=== PATIENT | female | born 1940 | race Caucasian/White ===

== ENCOUNTER 2023-04-16 13:42 | Outpatient (OUT) | payer MEDICARE, OTHER, SELFPAY ==
[2023-04-16 14:05] LABS: Basophils Absolute Auto 0.1 10^3/uL (0.0-0.1); Basophils Percent Auto 1.4 % (0.2-2.0); Eosinophils Absolute Auto 0.1 10^3/uL (0.0-0.7); Eosinophils Percent Auto 1.2 % (0.9-7.0); Hematocrit 38.7 % (36.0-48.0); Hemoglobin 12.3 g/dL (12.0-16.0); Immature Granulocytes Abs Auto 0.01 10^3/uL (0.00-0.03); Immature Granulocytes Pct Auto 0.2 % (0.0-0.5); Lymphocytes Absolute Auto 1.6 10^3/uL (1.2-3.8); Lymphocytes Percent Auto 26.7 % (20.5-60.0); Mean Corpuscular HGB Conc 31.8 g/dL (29.9-35.2); Mean Corpuscular Hemoglobin 30.4 pg (26.7-34.0); Mean Corpuscular Volume 95.6 fL (81.0-99.0); Mean Platelet Volume 9.8 fL (9.5-13.5); Monocytes Absolute Auto 0.6 10^3/uL (0.3-0.8); Monocytes Percent Auto 10.5 % (1.7-12.0); Neutrophils Absolute Auto 3.5 10^3/uL (1.4-6.5); Platelet Count 276 10^3/uL (150-450); Red Blood Count 4.05 10^6/uL (4.20-5.40); Red Cell Distribution Width 14.2 % (11.0-15.0); White Blood Count 5.8 10^3/uL (4.0-11.0)
== END 2023-04-16 13:43 | disposition home or self-care (01) ==
LOC: LAB 13:48
PROVIDERS: PCP Family Medicine; Visit Provider Internal Medicine Cardiovascular Disease
DX: I48.19 Other persistent atrial fibrillation (principal)
CPT/HCPCS: 36415; 85025

== ENCOUNTER 2023-04-21 07:54 | Outpatient (OUT) | payer MEDICARE, OTHER, SELFPAY ==
[2023-04-21 10:45] LABS: Anion Gap 10.6; BUN Creatinine Ratio 22.9; Calcium 8.9 mg/dL (8.5-10.1); Chloride 106 mmol/L (98-107); Estimated GFR (African America >60 (>=60); Estimated GFR (Non-African Ame >60 (>=60); Glucose 105 mg/dL (74-106); Potassium 3.6 mmol/L (3.5-5.1); Sodium 144 mmol/L (136-145)
== END 2023-04-21 07:55 | disposition home or self-care (01) ==
LOC: LAB 07:55
PROVIDERS: PCP Family Medicine; Visit Provider Internal Medicine Cardiovascular Disease
DX: I48.19 Other persistent atrial fibrillation (principal)
CPT/HCPCS: 36415; 80048

== ENCOUNTER 2023-08-01 09:54 | Outpatient (OUT) | payer MEDICARE, OTHER, SELFPAY ==
[2023-08-01 10:46] LABS: Anion Gap 13.1; BUN Creatinine Ratio 17.2; Calcium 8.7 mg/dL (8.5-10.1); Carbon Dioxide 28.6 mmol/L (21.0-32.0); Chloride 105 mmol/L (98-107); Estimated GFR (African America >60 (>=60); Estimated GFR (Non-African Ame 54 (>=60); Glucose 99 mg/dL (74-106); Potassium 3.7 mmol/L (3.5-5.1); Sodium 143 mmol/L (136-145)
== END 2023-08-01 09:55 | disposition home or self-care (01) ==
LOC: LAB 09:55
PROVIDERS: PCP Family Medicine; Visit Provider Nurse Practitioner
DX: I11.0 Hypertensive heart disease with heart failure (principal)
CPT/HCPCS: 36415; 80048

== ENCOUNTER 2023-08-28 08:18 | Outpatient (OUT) | payer MEDICARE, OTHER, SELFPAY ==
[2023-08-28 09:48] LABS: Alanine Aminotransferase 20 U/L (14-59); Albumin Globulin Ratio 1.2; Albumin Level 3.7 g/dL (3.4-5.0); Alkaline Phosphatase 54 U/L (46-116); Anion Gap 12.9; Aspartate Amino Transferase 12 U/L (15-37); BUN Creatinine Ratio 28.1; Bilirubin Total 0.4 mg/dL (0.2-1.0); Calcium 8.6 mg/dL (8.5-10.1); Carbon Dioxide 29.9 mmol/L (21.0-32.0); Chloride 104 mmol/L (98-107); Estimated GFR (African America >60 (>=60); Estimated GFR (Non-African Ame >60 (>=60); Free T3 1.92 pg/mL (2.18-3.98); Globulin 3.1 g/dL; Glucose 99 mg/dL (74-106); Potassium 3.8 mmol/L (3.5-5.1); Sodium 143 mmol/L (136-145); Thyroid Stimulating Hormone 0.682 uIU/mL (0.358-3.740); Total Protein 6.8 g/dL (6.4-8.2)
[2023-08-28 09:56] LABS: Estimated Average Glucose 111 mg/dL; Glycohemoglobin A1C 5.5 % (4.5-6.2)
== END 2023-08-28 08:19 | disposition home or self-care (01) ==
LOC: LAB 08:19
PROVIDERS: PCP Family Medicine; Visit Provider Family Medicine
DX: R00.2 Palpitations (principal); R55 Syncope and collapse; I10 Essential (primary) hypertension; E03.9 Hypothyroidism, unspecified; E05.90 Thyrotoxicosis, unspecified without thyrotoxic crisis or storm; D50.9 Iron deficiency anemia, unspecified
CPT/HCPCS: 36415; 80053; 83036; 84436; 84443; 84481

== ENCOUNTER 2023-10-07 10:28 | Outpatient (OUT) | payer MEDICARE, OTHER, SELFPAY ==
[2023-10-07 11:07] LABS: Free T3 2.46 pg/mL (2.18-3.98); Thyroid Stimulating Hormone 0.086 uIU/mL (0.358-3.740)
== END 2023-10-07 10:29 | disposition home or self-care (01) ==
LOC: LAB 10:29
PROVIDERS: PCP Family Medicine; Visit Provider Family Medicine
DX: E05.90 Thyrotoxicosis, unspecified without thyrotoxic crisis or storm (principal)
CPT/HCPCS: 36415; 84436; 84443; 84481

== ENCOUNTER 2024-01-13 15:36 | Emergency (ER) | payer MEDICARE, OTHER, SELFPAY ==
[2024-01-13] VITALS (14 sets, daily range): BP systolic 144–190; BP diastolic 74–91; PULSE 74–90; TEMP 36.8; O2SAT 91–95; BMI 33.3
--- NOTE | 2024-01-13 15:42 | ECG_ITS ---
The 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
--- NOTE | 2024-01-13 15:49 | XR_ITS ---
The [address] [address] Patient Name: PAULINE CAMARENA MRN: [id number] date: 1940 Sex: F Assigned Patient Location: ER Current Patient Location: ED.MAIN Accession/Order Number: [id number] Exam Date: 01/13/2024 16:00 Report Date: 01/13/2024 16:15 At the request of: ANNE EVANGELISTA Procedure: XR chest 1V EXAMINATION: XR chest 1V HISTORY: Palpitations COMPARISON: XR chest 01/09/2023 FINDINGS: LUNGS: Underexpanded lungs with trace amount of stranding within lung bases. VASCULATURE: No increased pulmonary vasculature. PLEURA: No pneumothorax, effusion, or pleural thickening. CARDIAC: No cardiomegaly or cardiac silhouette abnormality. MEDIASTINUM: No visible mass or adenopathy. BONES: No fracture or visible bone lesion. OTHER: Negative. XR/XR chest 1V IMPRESSION: 1. Low lung volume examination with trace amount of bibasilar atelectasis or less likely infiltrates; grossly stable. Electronically authenticated by: ALLY GOODE Date: 01/13/2024 16:15
--- NOTE | 2024-01-13 15:57 | ED.ARRPALP1 ---
HPI - Arrhythmia/Palpitations General Chief Complaint: Arrhythmia/Palpitations Stated Complaint: Palpitations Time Seen by Provider: 01/13/24 15:40 Source: patient Mode of arrival: walk-in Limitations: no limitations History of Present Illness HPI narrative: Patient is an 83-year-old female with a history of A-fib and Ablation 1 year ago who presents to the ER for intermittent palpitations for the last several days. She states the palpitations are not new for her, but in the last several days they seem much more frequent and she is feeling lightheaded when it happens. She states the palpitations last for several seconds. She has not had any chest pain or shortness of breath. She describes the sensation of her heart skipping. She has had some mild flulike illness in the last several weeks. She has not had any fevers, vomiting, diarrhea. She denies any peripheral edema. She sees Dr. Knapp for cardiology and had the ablation 1 year ago at [facility]. She states she had a stress test prior to the ablation, she does not have any coronary artery disease. She was taken off of her amiodarone several months ago because she was doing well. She does take metoprolol, she states this medication was increased recently to 100 mg. Related Data Home Medications ?Medication ?Instructions ?Recorded ?Confirmed apixaban 5 mg tablet (Eliquis) 5 mg PO Q12H 01/13/24 01/13/24 atorvastatin 10 mg tablet 10 mg PO DAILY 01/13/24 01/13/24 ergocalciferol (vitamin D2) 1,000 1,000 mcg PO DAILY 01/13/24 01/13/24 unit capsule isosorbide mononitrate 60 mg 60 mg PO BID 01/13/24 01/13/24 tablet,extended release 24 hr levothyroxine 88 mcg tablet 88 mcg PO DAILY 01/13/24 01/13/24 liothyronine 25 mcg tablet 25 mcg PO DAILY 01/13/24 01/13/24 losartan 50 mg tablet 25 mg PO DAILY 01/13/24 01/13/24 metoprolol succinate 100 mg 100 mg PO DAILY 01/13/24 01/13/24 tablet,extended release 24 hr spironolactone 25 mg tablet 12.5 mg PO DAILY 01/13/24 01/13/24 Allergies Allergy/AdvReac Type Severity Reaction Status Date / Time diltiazem [From Cardizem] Allergy Hives Verified 01/13/24 16:12 digoxin AdvReac Severe Nausea Verified 01/13/24 16:12 Review of Systems ROS Constitutional Denies: fever or chills Ears, nose, mouth, and throat Denies: throat pain or nasal congestion Cardiovascular Reports: palpitations and lightheadedness; Denies: chest pain or edema Respiratory Denies: shortness of breath or cough Gastrointestinal Denies: abdominal pain, nausea or vomiting Musculoskeletal Denies: back pain or neck pain Integumentary/Breast Denies: rash Hematologic/Lymphatic Denies: easy bruising or easy bleeding Exam Narrative Exam Narrative: Gen.: Awake, alert, in no distress Head: Normocephalic, atraumatic ENT: Moist mucous membranes Respiratory: No respiratory distress, lungs clear bilaterally Cardio: Regular rate and rhythm Gastrointestinal: Abdomen is soft, nondistended and nontender to palpation Extremities: Moves extremities equally, no pedal edema Psych: Normal mood and affect Neuro: No focal neuro deficit Skin: Warm, dry, intact Constitutional Vital Signs, click to edit/add: Last Vital Signs Temp 98.3 F 01/13/24 15:42 Pulse 84 01/13/24 16:40 Resp 18 01/13/24 15:42 BP 184/74 H 01/13/24 16:30 Pulse Ox 93 L 01/13/24 16:40 O2 Del Method Room Air 01/13/24 15:42 Course Vital Signs Vital signs: Vital Signs Temperature 98.3 F 01/13/24 15:42 Pulse Rate 82 01/13/24 15:42 Respiratory Rate 18 01/13/24 15:42 Blood Pressure 190/91 H 01/13/24 15:42 Pulse Oximetry 94 L 01/13/24 15:42 Oxygen Delivery Method Room Air 01/13/24 15:42 Temperature 98.3 F 01/13/24 15:42 Pulse Rate 84 01/13/24 16:40 Respiratory Rate 18 01/13/24 15:42 Blood Pressure 184/74 H 01/13/24 16:30 Pulse Oximetry 93 L 01/13/24 16:40 Oxygen Delivery Method Room Air 01/13/24 15:42 MDM - Arrhythmia/Palpitations MDM Narrative Medical decision making narrative: Patient in normal sinus rhythm, rate controlled with no acute ST elevation and normal labs in the ER. Chest x-ray with stable atelectasis. Patient's TSH is low, she will need to follow-up with Dr. Bates for adjustment of her medications. I discussed this with Dr. Bates over the phone, we will attempt Holter monitor placement and follow-up closely in the office. Cardiopulmonary staff is not available to place a Holter monitor today, they will be here tomorrow morning. Patient was given an order for 48-hour Holter monitor, follow-up closely with Dr. Bates's office and return to the ER if symptoms change or worsen. Medical Records Attestation: I reviewed the patient's medical records. Lab Data Attestation: I reviewed the patient's lab results. Labs: Lab Results 01/13/24 Range/Units 15:50 WBC 6.9 (4.0-11.0) 10^3/uL RBC 4.28 (4.20-5.40) 10^6/uL Hgb 12.9 (12.0-16.0) g/dL Hct 39.8 (36.0-48.0) % MCV 93.0 (81.0-99.0) fL MCH 30.1 (26.7-34.0) pg MCHC 32.4 (29.9-35.2) g/dL RDW 13.6 (11.0-15.0) % Plt Count 265 (150-450) 10^3/uL MPV 10.6 (9.5-13.5) fL Neut % (Auto) 61.6 (43.0-75.0) % Lymph % (Auto) 27.0 (20.5-60.0) % [place] % (Auto) 8.7 (1.7-12.0) % Eos % (Auto) 1.2 (0.9-7.0) % Baso % (Auto) 1.2 (0.2-2.0) % Neut # (Auto) 4.2 (1.4-6.5) 10^3/uL Lymph # (Auto) 1.9 (1.2-3.8) 10^3/uL [place] # (Auto) 0.6 (0.3-0.8) 10^3/uL Eos # (Auto) 0.1 (0.0-0.7) 10^3/uL Baso # (Auto) 0.1 (0.0-0.1) 10^3/uL Abs Immat Gran (auto) 0.02 (0.00-0.03) 10^3/uL Imm/Tot Granulo (auto) 0.3 (0.0-0.5) % PT 10.3 (9.0-11.6) sec INR 0.97 Sodium 143 (136-145) mmol/L Potassium 3.5 (3.5-5.1) mmol/L Chloride 104 (98-107) mmol/L Carbon Dioxide 26.8 (21.0-32.0) mmol/L Anion Gap 15.7 BUN 14.0 (7.0-18.0) mg/dL Creatinine 0.79 (0.55-1.02) mg/dL Est GFR ( Amer) >60 (>=60) Est GFR (Non-Af Amer) >60 (>=60) BUN/Creatinine Ratio 17.7 Glucose 108 H (74-106) mg/dL Calcium 8.8 (8.5-10.1) mg/dL Total Bilirubin 0.4 (0.2-1.0) mg/dL AST 34 (15-37) U/L ALT 22 (14-59) U/L Alkaline Phosphatase 70 (46-116) U/L Troponin I High Sens 4.8 (4.0-51.3) pg/mL NT-Pro-B Natriuret Pep 173.0 (<=1800.0) pg/mL Total Protein 7.2 (6.4-8.2) g/dL Albumin 3.9 (3.4-5.0) g/dL Globulin 3.3 g/dL Albumin/Globulin Ratio 1.2 TSH 0.018 L (0.358-3.740) uIU/mL Imaging Data Chest x-ray: Attestation: I have reviewed the pertinent imaging results. Radiologist's impression: ITS Impressions Chest X-Ray 01/13/24 15:49 IMPRESSION: 1. Low lung volume examination with trace amount of bibasilar atelectasis or less likely infiltrates; grossly stable. Electronically authenticated by: ALLY GOODE Date: 01/13/2024 16:15 ECG Data Attestation: I personally reviewed and interpreted this ECG as follows: ([place] rhythm at a rate of 78, no acute ST elevation or ectopy noted. EKG reviewed by attending physician) Discharge Plan Discharge Stand Alone Forms: Portal Instructions Chief Complaint: Arrhythmia/Palpitations Clinical Impression: Palpitations Patient Disposition: Home, Self-Care Time of Disposition Decision: 17:11 Condition: Good Prescriptions / Home Meds: No Action metoprolol succinate 100 mg tablet extended release 24 hr 100 mg PO DAILY isosorbide mononitrate 60 mg tablet extended release 24 hr 60 mg PO BID Eliquis 5 mg tablet 5 mg PO Q12H atorvastatin 10 mg tablet 10 mg PO DAILY levothyroxine 88 mcg tablet 88 mcg PO DAILY liothyronine 25 mcg tablet 25 mcg PO DAILY spironolactone 25 mg tablet 12.5 mg PO DAILY losartan 50 mg tablet 25 mg PO DAILY ergocalciferol (vitamin D2) 1,000 unit capsule 1,000 mcg PO DAILY Print Language: Turkmen Instructions: Heart Palpitations (ED) Additional Instructions: Call centralized scheduling in the morning tomorrow ([phone]. [phone]) To have a Holter monitor placed. The staff will be able to do this tomorrow morning. Follow-up with Dr. Bates to review your thyroid studies and results in the next 1 to 2 days. Referrals: Norris Bates MD [Primary Care Provider] - As soon as possible
[2024-01-13 16:18] LABS: Basophils Absolute Auto 0.1 10^3/uL (0.0-0.1); Basophils Percent Auto 1.2 % (0.2-2.0); Eosinophils Absolute Auto 0.1 10^3/uL (0.0-0.7); Eosinophils Percent Auto 1.2 % (0.9-7.0); Hematocrit 39.8 % (36.0-48.0); Hemoglobin 12.9 g/dL (12.0-16.0); Immature Granulocytes Abs Auto 0.02 10^3/uL (0.00-0.03); Immature Granulocytes Pct Auto 0.3 % (0.0-0.5); Lymphocytes Absolute Auto 1.9 10^3/uL (1.2-3.8); Mean Corpuscular HGB Conc 32.4 g/dL (29.9-35.2); Mean Corpuscular Hemoglobin 30.1 pg (26.7-34.0); Mean Platelet Volume 10.6 fL (9.5-13.5); Monocytes Absolute Auto 0.6 10^3/uL (0.3-0.8); Monocytes Percent Auto 8.7 % (1.7-12.0); Neutrophils Absolute Auto 4.2 10^3/uL (1.4-6.5); Neutrophils Percent Auto 61.6 % (43.0-75.0); Platelet Count 265 10^3/uL (150-450); Red Blood Count 4.28 10^6/uL (4.20-5.40); Red Cell Distribution Width 13.6 % (11.0-15.0); White Blood Count 6.9 10^3/uL (4.0-11.0)
[2024-01-13 16:31] LABS: INR 0.97; Prothrombin Time 10.3 sec (9.0-11.6)
[2024-01-13 16:33] LABS: Alanine Aminotransferase 22 U/L (14-59); Albumin Globulin Ratio 1.2; Albumin Level 3.9 g/dL (3.4-5.0); Alkaline Phosphatase 70 U/L (46-116); Anion Gap 15.7; Aspartate Amino Transferase 34 U/L (15-37); BUN Creatinine Ratio 17.7; Bilirubin Total 0.4 mg/dL (0.2-1.0); Calcium 8.8 mg/dL (8.5-10.1); Carbon Dioxide 26.8 mmol/L (21.0-32.0); Chloride 104 mmol/L (98-107); Estimated GFR (African America >60 (>=60); Estimated GFR (Non-African Ame >60 (>=60); Globulin 3.3 g/dL; Glucose 108 mg/dL (74-106); Potassium 3.5 mmol/L (3.5-5.1); Sodium 143 mmol/L (136-145); Total Protein 7.2 g/dL (6.4-8.2)
[2024-01-13 16:42] LABS: Thyroid Stimulating Hormone 0.018 uIU/mL (0.358-3.740); Troponin I High Sensitivity 4.8 pg/mL (4.0-51.3)
== END 2024-01-13 17:30 | disposition home or self-care (01) ==
PROVIDERS: Physician Assistant; Emergency Provider Emergency Medicine; PCP Family Medicine
DX: R00.2 Palpitations (principal); Z79.01 Long term (current) use of anticoagulants; Z79.899 Other long term (current) drug therapy; Z79.890 Hormone replacement therapy
CPT/HCPCS: 36415; 71045; 80053; 83880; 84443; 84484; 85025; 85610; 93005; 99285

== ENCOUNTER 2024-01-15 09:57 | Outpatient (OUT) | payer MEDICARE, OTHER, SELFPAY ==
--- NOTE | 2024-01-15 10:13 | CA_ITS ---
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1940 Requested By: [id number] Order Number: [id number] Reading MD: ANDRE EPPS Interpretive Statements Predominant rhythm is sinus with average rate of 72 bpm Tachycardia - max rate of 181 bpm (PSVT) - 2 episodes of PSVT w/ longest duration of 6 beats - longest episode of 12min 2sec with rates between 123-153 bpm Bradycardia - min rate of 50 bpm - longest episode of 43min 3sec w/ rates between 55-59 bpm Ventricular ectopy - 297 total, < 1% - 295 PVC - 2 couplets Patient triggered events: 22 - associated with symptoms of palpitations - associated w/ normal sinus rhythm w/ VE and SVE Impression: Predominant rhythm is sinus with average rate of 72 bpm Fastest rate of 181 bpm (PSVT) and slowest rate of 50 bpm 295 PVC, 2 couplets No atrial fibrillation No pauses or blocks Electronically Signed On 01-27-2024 7:16:12 EDT by ANDRE EPPS
== END 2024-01-15 09:58 | disposition home or self-care (01) ==
LOC: CARD 09:57
PROVIDERS: PCP Family Medicine; Visit Provider Emergency Medicine Emergency Medical Services
DX: R00.2 Palpitations (principal); I49.9 Cardiac arrhythmia, unspecified
CPT/HCPCS: 93242

== ENCOUNTER 2024-03-17 08:13 | Outpatient (OUT) | payer MEDICARE, OTHER, SELFPAY ==
--- NOTE | 2024-03-17 08:22 | CT_ITS ---
The [address] [address] Patient Name: PAULINE CAMARENA MRN: [id number] date: 1940 Sex: F Assigned Patient Location: LAB Current Patient Location: LAB Accession/Order Number: [id number] Exam Date: 03/17/2024 09:00 Report Date: 03/17/2024 10:03 At the request of: CAM CHEN Procedure: CT head/brain wo/w con CT head/brain wo/w con, 03/17/2024 9:00 AM EDT INDICATION: Migraine G43.9009 COMPARISON: Prior CT of the head dated 05/16/2022 TECHNIQUE: Axial CT images of the brain from skull base to vertex, including portions of the face and sinuses, were obtained without and with contrast . Multiplanar reformatted images were generated and reviewed as needed. Dose reduction techniques were achieved by using automated exposure control and/or adjustment of mA and/or kV according to patient size and/or use of iterative reconstruction technique. FINDINGS: The cerebral sulci as well as ventricular system are enlarged consistent with mild ex vacuo cerebral volume loss. There is no intracranial mass, mass effect, midline shift, intra or extra-axial fluid collection or hemorrhage. Periventricular and centrum semiovale hypodensities are most likely consistent with microvascular ischemic changes. No abnormal enhancing lesion is noted. The visualized portions of orbits, mastoid air cells as well as paranasal sinuses are unremarkable. There is status post bilateral lens replacement. There is no suspicious osteolytic or osteoblastic lesion. CT/CT head/brain wo/w con IMPRESSION: No acute intracranial process is noted. No definite radiological finding to explain patient's symptoms. Electronically authenticated by: IGNACIO IGNACIO Date: 03/17/2024 10:03
--- OUTSIDE RECORDS SUMMARY | 2024-03-17 08:22 | XMS_ITS | CCD ---
Author Organization [facility] CliniSynv Care Team Providers Care Patient Support Associate Name Role Phone UNKNOWN, PROVIDER Admitting Unavailable UNKNOWN, PROVIDER Attending Unavailable SELF, REFERRED Referring Unavailable CAM BATES Primary Care Unavailable DENISSE, DR GLORIA Bonilla Attending Unavailable NADHOSEAR, DR GLORIA Bonilla Admitting Unavailable HOY ., DR LEVY Consulting Unavailable HOY ., DR LEVY Primary Care Unavailable NADERER, DR GLORIA Bonilla Consulting Unavailable JOHNNY MAHMOOD Consulting Unavailable LIYA GAINES Consulting Unavailable CHE JACOBS Consulting Unavailable LEANNA VIVAS Consulting Unavailable HOY ., DR LEVY Primary Care Unavailable LEANNA VIVAS Attending Unavailable LEANNA VIVAS Admitting Unavailable HOY ., DR LEVY Consulting Unavailable HOY ., DR LEVY Primary Care Unavailable HOY ., DR LEVY Attending Unavailable HOY ., DR LEVY Admitting Unavailable SHANEL MAST Consulting Unavailable HOY ., DR LEVY Primary Care Unavailable SHANEL MAST Attending Unavailable KEZIASHANEL Phillips Admitting Unavailable HOY ., DR LEVY Primary Care Unavailable HOY ., DR LEVY Attending Unavailable HOY ., DR LEVY Admitting Unavailable PAY ., DR AMADOR Consulting Unavailable PAY ., DR AMADOR Attending Unavailable PAY ., DR AMADOR Admitting Unavailable HOY ., DR LEVY Primary Care Unavailable NICOLE CLINE Consulting Unavailable Ally Mckeon Consulting Unavailable TIBURCIO .RICARDO Attending Unavailable TIBURCIO ., RICARDO Admitting Unavailable HOY ., DR LEVY Primary Care Unavailable Mckinley Taylor Consulting Unavailable ALEJANDRO BLACKMAN Consulting Unavailable TIBURCIO ., RICARDO Consulting Unavailable HOY ., DR LEVY Consulting Unavailable HOY ., DR LEVY Attending Unavailable HOY ., DR LEVY Admitting Unavailable HOY ., DR LEVY Primary Care Unavailable KAI, DR JEANINE Lambert Consulting Unavailabl e Ally Mckeon Consulting Unavailable MOUKARBEL, DR CRAWLEY Consulting Unavailable MARKER ., DR UGARTE Consulting Unavailable LEANNA VIVAS Consulting Unavailable LEANNA VIVAS Attending Unavailable KAYLYN GILBERT Attending Unavailable LUCHO TAYLOR Referring Unavailable LUCHO TAYLOR Referring Unavailable LUCHO TAYLOR Referring Unavailable KAYLYN GILBERT Attending Unavailable LEANNA VIVAS Attending Unavailable LUCHO TAYLOR Admitting Unavailable LUCHO TAYLOR Attending Unavailable LEANNA VIVAS Attending Unavailable Allergies Allergy Classification Reported Allergen(s) Allergy Type Date of Onset Reaction(s) Facility (2 sources) dilTIAZem; Translations: [DILTIAZEM] Drug Allergy 11-19-2015 [facility] Repository (1 source) Digoxin; Translations: [DIGOXIN] Drug Allergy 12-24-2022 [facility] Repository Problems Active Problems Problem Classification Problem Date Documented Date Episodic/Chronic Cardiac dysrhythmias (8 sources) Unspecified atrial fibrillation; Translations: [Paroxysmal atrial fibrillation] Onset: 04-20-2022 Chronic Cardiac dysrhythmias (6 sources) Palpitations; Translations: [Bradycardia, unspecified] Onset: 05-19-2022 Episodic Conditions associated with dizziness or vertigo (5 sources) Dizziness and giddiness; Translations: [DIZZINESS AND GIDDINESS] Onset: 05-19-2022 Episodic Congestive heart failure; nonhypertensive (4 sources) Chronic diastolic (congestive) heart failure; Translations: [Unspecified diastolic (congestive) heart failure] Onset: 02-05-2022 Chronic Coronary atherosclerosis and other heart disease (3 sources) Atherosclerotic heart disease of [place] coronary artery without angina pectoris; Translations: [ASHD KIPNUK CA W/O ANGINA PECTORIS] Onset: 02-05-2022 Chronic Deficiency and other anemia (1 source) Iron deficiency anemia, unspecified; Translations: [IRON DEFICIENCY ANEMIA UNSPECIFIED] Onset: 01-13-2023 Episodic Disorders of lipid metabolism (3 sources) Pure hypercholesterolemia, unspecified; Translations: [Hyperlipidemia, unspecified] Onset: 02-05-2022 Chronic Esophageal disorders (1 source) Gastro-esophageal reflux disease without esophagitis; Translations: [GERD WITHOUT ESOPHAGITIS] Onset: 01-13-2023 Chronic Essential hypertension (7 sources) Essential (primary) hypertension; Translations: [ESSENTIAL PRIMARY HYPERTENSION] Onset: 01-13-2023 Chronic Fluid and electrolyte disorders (2 sources) Dehydration; Translations: [Hypo-osmolality and hyponatremia] Onset: 01-13-2023 Episodic Headache; including migraine (4 sources) Headache; including migraine; Translations: [HEADACHE UNSPECIFIED] Onset: 05-16-2022 Hypertension with complications and secondary hypertension (6 sources) Hypertensive heart disease with heart failure; Translations: [HTN HEART DISEASE W/HEART FAIL] Onset: 12-31-2022 Chronic Menopausal disorders (1 source) Hormone replacement therapy; Translations: [HORMONE REPLACEMENT THERAPY] Onset: 01-13-2023 Episodic Nutritional deficiencies (1 source) Vitamin D deficiency, unspecified; Translations: [VITAMIN D DEFICIENCY UNSPECIFIED] Onset: 02-05-2022 Chronic Occlusion or stenosis of precerebral arteries (3 sources) Occlusion and stenosis of right carotid artery; Translations: [Occlusion and stenosis of bilateral carotid arteries] Onset: 05-19-2022 Chronic Other aftercare (1 source) 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; Translations: [OTH MCC CURRENT DRUG THERAPY] Onset: 01-13-2023 Episodic Other aftercare (1 source) [facility] (current) use of anticoagulants; Translations: [OPTO MECHANICAL TECHNICIAN CURRNT USE ANTICOAGULANTS] Onset: 01-13-2023 Episodic Other circulatory disease (2 sources) Personal history of other diseases of the circulatory system; Translations: [Personal history of other diseases of the circulatory system] Onset: 01-19-2024 Episodic Other lower respiratory disease (1 source) Shortness of breath; Translations: [SHORTNESS OF BREATH] Onset: 01-13-2023 Episodic Residual codes; unclassified (1 source) Acquired absence of both cervix and uterus; 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] Onset: 01-13-2023 Episodic Residual codes; unclassified (2 sources) Other specified postprocedural states; Translations: [Other specified postprocedural states] Onset: 01-19-2024 Episodic Screening and history of mental health and substance abuse codes (1 source) Personal history of nicotine dependence; Translations: [PERSONAL HISTORY OF NICOTINE DEPEND] Onset: 01-13-2023 Episodic Spondylosis; intervertebral disc disorders; other back problems (4 sources) Radiculopathy, lumbar region; Translations: [RADICULOPATHY LUMBAR REGION] Onset: 12-11-2022 Episodic Thyroid disorders (1 source) Hypothyroidism, unspecified; Translations: [HYPOTHYROIDISM UNSPECIFIED] Onset: 01-13-2023 Chronic Unclassified (1 source) CONTACT W/AND (SUSP) EXPOS COVID-19; Translations: [CONTACT W/AND (SUSP) EXPOS COVID-19] Onset: 01-13-2023 Unclassified (2 sources) Other persistent atrial fibrillation; Translations: [Other persistent atrial fibrillation] Onset: 01-30-2023 Past or Other Problems Problem Classification Problem Date Documented Da te Episodic/Chronic Deficiency and other anemia (1 source) Anemia, unspecified; Translations: [ANEMIA UNSPECIFIED] Onset: 02-05-2022 Episodic Diabetes mellitus without complication (1 source) Other abnormal glucose; Translations: [OTHER ABNORMAL GLUCOSE] Onset: 02-05-2022 Episodic Genitourinary symptoms and ill-defined conditions (1 source) Personal history of urinary (tract) infections; Translations: [PERS HX URINARY TRACT INFECTIONS] Onset: 04-23-2022 Episodic Malaise and fatigue (1 source) Weakness; Translations: [WEAKNESS] Onset: 05-19-2022 Episodic Nonspecific chest pain (1 source) Chest pain, unspecified; Translations: [CHEST PAIN UNSPECIFIED] Onset: 02-05-2022 Episodic Other aftercare (1 source) 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; Translations: [OPTO MECHANICAL TECHNICIAN USE ORAL HYPOGLYCEMIC DX] Onset: 05-19-2022 Episodic Other aftercare (1 source) [facility] (current) use of aspirin; Translations: [OPTO MECHANICAL TECHNICIAN CURRENT USE OF ASPIRIN] Onset: 04-23-2022 Episodic Other lower respiratory disease (1 source) Acute respiratory distress; Translations: [ACUTE RESPIRATORY DISTRESS] Onset: 04-23-2022 Episodic Other lower respiratory disease (1 source) Dyspnea, unspecified; Translations: [DYSPNEA UNSPECIFIED] Onset: 02-05-2022 Episodic Results Test Name Value Interpretation Reference Range Facility Office Visiton 01-19-2024 Follow-up visit [id number] Jessica Camarena ra 1940 F Date Provider Department Center 01/19/2024 Neris-KAYLYN GILBERT CARD [facility] No family history on file Level of Service:61116 [place] OFFICE/OUTPATIENT ESTABLISHED MOD MDM 30 MIN Normal [facility] Office Visiton 01-07-2024 Follow-up visit [id number] Jessica Camarena ra 1940 F Date Provider Department Center 01/07/2024 KAYLYN JANG No family history on file Level of Service:46383 [place] OFFICE/OUTPATIENT ESTABLISHED MOD MDM 30 MIN [facility] 36on 08-14-2023 36 Per Leanna patient to come in and have EKG done. If patient is not in Afib, needs a 30 day monitor and follow up after monitor in office. If she is back in Afib patient to resume amiodarone. Pt will be in on 08/17/23 around 11 am for EKG [facility] 36 Patient called and states that you took her off amiodarone recently. She states that she is having elevated heart rates into the 90's and experiencing fatigue and lightness with any exertion. Patient questioning if she should go back on it. Please advise [facility] Office Visiton 07-29-2023 Follow-up visit [id number] Jessica Camarena ra 1940 F Date Provider Department [place] 07/29/2023 LEANNA OCONNELL No family history on file Level of Service:07915 [place] OFFICE/OUTPATIENT ESTABLISHED MOD [facility] 30-39 MIN [facility] 36on 06-01-2023 36 3 months post ablati on would around 07/24/23 [facility] 36 I called - she is at lowest tier available, they stated her cost will return to what it was previously once she is out of her coverage gap (aka donut hole); event if assistance went through she is the lowest out of pocket cost available. If she cannot continue due to cost then at 3 months post ablation we can transition to warfarin or give script of xarelto 20mg for her to use on [email or web address] Follow-Upon 05-27-2023 Follow-Up [id number] Jessica Camarena ra 1940 F Date Provider Department [place] 05/27/2023 LEANNA OCONNELL No family history on file Level of Service:14382 [place] OFFICE/OUTPATIENT ESTABLISHED MOD MDM 30-39 MIN Reason for Visit and Comments: Follow-up [[id number]] [facility] Telephoneon 05-14-2023 Telephone [id number] Jessica Camarena ra 1940 Date Provider Department Center 05/14/20231986LUCRECIA J[facility]NS [facility] No family history on file Reason for Visit and Comments: 3 week post ablation f/u [Other] [facility] Telephoneon 04-30-2023 Telephone [id number] Jessica Camarena ra 1940 Date Provider Department Center 04/30/20231986-[facility]CR[facility] No family history on file Reason for Visit and Comments: afib ablation f/u [Other] [facility] HPon 04-23-2023 HP -- Attestation signed by Lucho Taylor MD at 04/23/2023 12:36 PM By using the attestations below, the signing clinician agrees that I have read and verify that the documentation has been personally reviewed by me and ensure that the documentation accurately reflects the encounter. GC: I personally saw this patient on the day of the encounter, performed the barboza portion(s) of the service and participated in the management and confirm the resident's documentation. Please note there may be an additional personal documentation from me. History Of Present Illness Betty Camarena is a 82 y.o. female presenting for atrial fibrillation ablation. Past medical history of A-fib, mild to moderate CAD with recent cath 04/2020, hypertension, bilateral carotid artery stenosis, HFpEF NYHA II Medications: Toprol-XL 75 mg, Aldactone 25 mg, stop lisinopril 5 mg and start losartan 50 mg, amiodarone 200 mg, Imdur 60 mg, Lipitor 10 mg, Eliquis 5 mg twice daily, Synthroid 88 mcg, Lasix 20 mg Past Medical History She has a past medical history of Arthritis, Atrial fibrillation (CMS/HCC), Coronary artery disease, Hyperlipidemia, Hypertension, Hypothyroidism, and Obesity. Surgical History She has a past surgical history that includes Cholecystectomy; Hysterectomy; Colonoscopy; Upper gastrointestinal endoscopy; and Cardiac catheterization. Social History She reports that she quit smoking about 18 years ago. Her smoking use included cigarettes. She has a 20.00 pack-year smoking history. She has never used smokeless tobacco. She reports that she does not currently use alcohol. She reports that she does not use drugs. Allergies Digoxin and Diltiazem Medications Medications Prior to Admission Medication Sig Dispense Refill Last Dose amiodarone (Pacerone) 200 mg tablet Take 200 mg by mouth in the morning. 04/23/2023 at 0800 apixaban (Eliquis) 5 mg tablet Eliquis 5 mg tablet TAKE 1 TABLET BY MOUTH TWICE A DAY 03/05/2023 atorvastatin (Lipitor) 10 mg tablet atorvastatin 10 mg tablet TAKE 1 TABLET BY MOUTH ONCE A DAY 04/23/2023 at 0800 ergocalciferol (Vitamin D-2) 1.25 MG (83324 Units) capsule Vitamin D Past Week furosemide (Lasix) 20 mg tablet Take 1 tablet (20 mg) by mouth in the morning. 30 tablet 11 04/22/2023 at 0800 isosorbide mononitrate ER (Imdur) 60 mg 24 hr tablet isosorbide mononitrate ER 60 mg tablet,extended release 24 hr TAKE 1 TABLET BY MOUTH TWICE A DAY 04/23/2023 at 0800 levothyroxine (Synthroid, Levoxyl) 88 mcg tablet Take 800 mcg by mouth in the morning. 04/23/2023 at 0800 liothyronine (Cytomel) 5 mcg tablet Take 3 tablets by mouth in the morning. 04/22/2023 at 0800 losartan (Cozaar) 50 mg tablet Take 1 tablet (50 mg) by mouth in the morning. 30 tablet 11 04/22/2023 at 0800 metoprolol succinate XL (Toprol-XL) 50 mg 24 hr tablet Take 1.5 tablets (75 mg) by mouth in the morning. TAKE 1.5 TABLETS DAILY 45 tablet 11 04/23/2023 at 0800 pantoprazole (ProtoNix) 40 mg EC tablet Take 1 tablet (40 mg) by mouth in the morning. 90 tablet 3 04/22/2023 at 0800 spironolactone (Aldactone) 25 mg tablet Take 0.5 tablets (12.5 mg) by mouth in the morning. 45 tablet 3 04/22/2023 at 0800 amiodarone (Pacerone) 200 mg tablet Take 1 tablet (200 mg) by mouth in the morning. 90 tablet 3 Review of Systems Constitutional: Negative for activity change. Respiratory: Negative for shortness of breath and wheezing. Cardiovascular: Negative for chest pain and leg swelling. Gastrointestinal: Negative for abdominal distention. Physical Exam Cardiovascular: Rate and Rhythm: Normal rate and regular rhythm. Pulses: Normal pulses. Heart sounds: Normal heart sounds. No murmur heard. Pulmonary: Effort: Pulmonary effort is normal. Neurological: Mental Status: She is alert. Last Recorded Vitals Blood pressure (!) 188/57, pulse 61, temperature 36.2 ???C (97.2 ???F), temperature source Temporal, resp. rate 20, height 1.499 m (4' 11 ), weight 75.5 kg (166 lb 7.2 oz), SpO2 95 %. Assessment/Plan Principal Problem: Persistent atrial fibrillation (CMS/HCC) Active Problems: Paroxysmal atrial fibrillation (CMS/HCC) Persistent, not longstanding, AFIB RVR [id number] 4 for age, hypertension, HFpEF. -Continue eliquis 5mg bid -ecg SR today - will proceed with A.fib ablation Benign essential HTN -Toprol-XL 100 mg, Imdur 60 mg, Aldactone 12.5 mg, -losartan 50mg Bilateral carotid artery stenosis Lipids stable -continue atorvastatin 10 mg, Eliquis Chronic diastolic heart failure, NYHA class 2 (CMS/HCC) [facility] II, euvolemic -Continue GDMT oprol-XL 75 mg, Aldactone 25 mg, losartan 50 mg, Imdur 60 mg, Lipitor 10 mg, Eliquis 5 mg twice daily, Lasix 20 mg Coronary artery disease involving [place] coronary artery of [place] heart without angina pectoris (more content not included)... Normal [facility] NURSNOTEon 04-23-2023 NURSNOTE Patients groin site looks C/D/I with no hematoma. Discharge instructions given prior to leaving. Normal [facility] POCT GLUCOSE METER UNSOLICIT ED RESULTSon 04-23-2023 Glucose [Mass/Vol] 103 mg/dL Normal 70-105 [facility] Comment on above: Order Comment: Waive d Testing in the ED is performed under the ED CLIA certificate #[id number]. Result Comment: pbar retcorson Performed By: #### L [id number] ####[facility] ([place])[address] [place] [address] PROTIME-INRon 04-23-2023 INR IN PPP BY COAGULATION ASSAY 1.10 Normal 0.90-1.10 [facility] Comment on above: Result Comment: ACCC P RECOMMENDED INR FOR WARFARIN THERAPY CONDITION INR PROPHYLAXIS OF VENOUS THROMBOSIS 2-3 (HIGH-RISK SURGERY) TREATMENT OF VENOUS THROMBOSIS 2-3 TREATMENT OF PULMONARY EMBOLISM 2-3 PREVENTION OF SYSTEMIC EMBOLISM: 2-3 ACUTE MYOCARDIAL INFARCTION TISSUE HEART VALVES VALVULAR HEART DISEASE ATRIAL FIBRILLATION RECURRENT SYSTEMIC EMBOLISM MECHANICAL HEART VALVE 2.5-3.5 FROM: ORAL ANTICOAGULANTS. MECHANISM OF ACTION, CLINICAL EFFECTIVENESS, AND OPTIMAL THERAPEUTIC RANGE. CHEST 1995;108:231S-246S. Performed By: #### L [id number] ####[facility] Act[facility])[address] [place] [address] PROTHROMBIN TIME (PT) IN PPP BY COAGULATION ASSAY 14.3 Seconds Normal 12.3-14.8 [facility] Comment on above: Performed By: #### L [id number] ####[facility] ([place]STINA)[address] [place] [address] [id number] 04-16-2023 [id number] ARRIVAL TIME GIVEN 1100, PT VERBALIZED UNDERSTANDIING Normal [facility] Prep for Procedureon 023 Prep for Procedure [id number] Jessica Camarena ra 1940 F Date Provider Department Center 03/13/2023 Dom-LUCR[facility] No family history on file Normal [facility] [id number] 03-05-2023 [id number] ARRIVAL TIME [address] TAKE THESE MEDS ON THE MORNING OF YOUR PROCEDURE WITH SIPS OF WATER AMIODARONE ISOSORBIDE LEVOTHYROXINE METOPROLOL PANTOPRAZOLE Additional Instructions: IF YOU ARE GOING HOME AFTER YOUR SURGERY OR PROCEDURE, FOR YOUR SAFETY, YOUR SURGERY WILL BE CANCELLED IF BOTH OF THE FOLLOWING ARE NOT AVAILABLE: An adult courtesy van driver over the age of 18, that can receive information about your care after surgery, and drive you home. A responsible adult to stay with you for 24 hours in case of an emergency. Can be same as above. The highest risk of complications is within the first 24 hours after sedation/anesthesia. Nothing to eat or drink after midnight the night before surgery. This includes gum, candy, mints, and lozenges. No alcohol, marijuana, or tobacco products including vaping for 24 hours. Please brush your teeth; don't swallow the toothpaste or water. If you use dentures, wear them but do not use paste. Please leave any other removable dental hardware at home. Do not put in contact lenses. Do not wear perfume, make-up, nail kuwaiti, or lotions on the day of your surgery or procedure. Follow skin-prep/wipe instructions as below if required. Bring with you: *Insurance card *Photo ID *Medication list *Co-pay for visit/prescriptions If applicable: *Rescue inhalers *Green bracelet from lab *CPAP or BiPAP machine, if staying overnight *Any braces, splints, or equipment ordered preoperatively *Remote controls for implanted devices Leave at home: *Purse/Wallet/[place]- unless needed for co-pay *Cell phone (can leave with family/friend or place in locker if needed) *Jewelry (including piercings and wedding bands) *If not possible, ask the person who is waiting with you to keep them Children under the age of 12 will not be allowed into patient care areas. We will call you between 3pm and 4pm the day before your surgery to give you an arrival time. If you do not receive this call, have any questions, or need to make any changes, please call [phone]. Notify your surgeon if you develop any illness such as a cold, cough, fever, sore throat or vomiting between now and your surgery. Thank you for entrusting us with your care. [facility] Surgical Services Team Normal [facility] BASIC METABOLIC PANELon 05-2 Anion gap [Moles/Vol] 12 mmol/L Normal 7-20 [facility] Comment on above: Performed By: #### L [id number] #### [facility] ([facility]) [address] [facility] [place] [address] Calcium [Mass/Vol] 8.7 mg/dL Normal 8.6-10.3 [facility] Comment on above: Performed By: #### L [id number] #### [facility] (BEAKER) [address] [place] [address] Chloride [Moles/Vol] 102 mmol/L Normal 98-107 [facility] Comment on above: Performed By: #### L [id number] #### [facility] (BEAKER) [address] [place] [address] CO2 [Moles/Vol] 28 mmol/L Normal 21-31 [facility] Comment on above: Performed By: #### L [id number] #### [facility] (BEAKER) [address] [facility] [place] [address] Creatinine [Mass/Vol] 0.95 mg/dL Normal 0.60-1.20 [facility] Comment on above: Performed By: #### L [id number] #### [facility] [address] [place] [address] GLOMERULAR FILTRATION RATE ML/MIN/1.73 SQ M.PREDICTED 60.6 mL/min/1.73m*2 Normal >60.0 [facility] Comment on above: Result Comment: [facility]???s estimated glomerular filtration rate (eGFR) will no longer include consideration of race in its calculation. The National Kidney Foundation???s eGFR Task Force developed new recommendations for the estimation of the glomerular filtration rate in the [place] They recommend immediate implementation of the new equation refit without the race variable in all laboratories because the calculation does not include race. In addition to not including race in the calculation and reporting, it included diversity in its development, and has acceptable performance characteristics and potential consequences that do not disproportionately affect any one group of individuals. Performed By: #### L [id number] #### [facility] ([facility]) [address] [place] [address] Glucose [Mass/Vol] 91 mg/dL Normal 70-100 [facility] Comment on above: Performed By: #### L [id number] #### [facility] ([facility]) [address] [place] [address] Potassium [Moles/Vol] 3.9 mmol/L Normal 3.5-5.1 [facility] Comment on above: Performed By: #### L [id number] #### [facility] ([facility]) [address] [place] [address] Sodium [Moles/Vol] 138 mmol/L Normal 136-145 [facility] Comment on above: Performed By: #### L [id number] #### [facility] ([facility] [address] [place] [address] Urea nitrogen [Mass/Vol] 21 mg/dL Normal 7-25 [facility] Comment on above: Performed By: #### L [id number] #### [facility] ([facility]) [address] [place] [address] UREA NITROGEN/CREATININE (MASS RATIO) IN SER/PLAS 22.1 Normal [facility] Comment on above: Performed By: #### L [id number] #### [facility] ([facility] [address] [place] [address] CBCon 03-02-2023 Erythrocyte distribution width (RBC) [Ratio] 14.6 % Normal 11.5-15.0 [facility] Comment on above: Performed By: #### L [id number] #### [facility] ([facility]) [address] [place] [address] ERYTHROCYTE MEAN CORPUSCULAR HEMOGLOBIN CONCENTRATION (G/DL) BY AUTOMATED 32.2 g/dL Normal 32.0-35.0 [facility] Comment on above: Performed By: #### L [id number] #### [facility] ([facility]) [address] [place] [address] Hematocrit (Bld) [Volume fraction] 38.2 % Normal 36.0-48.0 [facility] Comment on above: Performed By: #### L [id number] #### [facility] ([facility] [facility]) [address] [place] [address] Hemoglobin (Bld) [Mass/Vol] 12.3 g/dL Normal 12.0-15.0 [facility] Comment on above: Performed By: #### L [id number] #### [facility] ([facility]) [address] [place] [address] MCH (RBC) [Entitic mass] 30.1 pg Normal 27.0-33.0 [facility] Comment on above: Performed By: #### L [id number] #### [facility] ([facility]) [address] [place] [address] MCV (RBC) [Entitic vol] 93.4 fL Normal 82.0-98.0 [facility] Comment on above: Performed By: #### L [id number] #### [facility] ([facility] [address] [place] [address] PLATELETS (10*3/UL) IN BLOOD AUTOMATED COUNT 271 10*3/uL Normal 150-400 [facility] Comment on above: Performed By: #### L [id number] #### [facility] ([facility] [address] [place] [address] RBC (Bld) [#/Vol] 4.09 10*6/uL Normal 3.80-5.00 [place] Comment on above: Performed By: #### L [id number] #### [facility] ([facility]) [address] [place] [address] WBC (Bld) [#/Vol] 5.16 10*3/uL Normal 4.00-10.60 [place] Comment on above: Performed By: #### L [id number] #### [facility] ([facility]) [address] [place] [address] CTA CHEST W AND/OR WO IV CON TRASTon 03-02-2023 CTA CHEST W AND/OR WO IV CONTRAST CTA CHEST W AND/OR WO IV CONTRAST 03/02/2023 2:26 PM SIGNS AND SYMPTOMS: Paroxysmal atrial fibrillation. Pre-Ablation. TECHNOLOGIST COMMENTS: QUESTION FOR THE RADIOLOGIST: PROTOCOL: CTA chest conducted with prospective ECG gating. Fatty reformatted into standard images, three-dimensional maximal intensity projection images and rendered images on a separate workstation. 100 mL of Omnipaque 350 COMPARISON: None FINDINGS: Thoracic inlet: Normal Mediastinum: No adenopathy Marie: No adenopathy Vessels:Atheroscleroti c changes in the aorta. No aneurysm. Heart: Normal size. No pericardial Airways: Normal Lungs: Mild basilar atelectasis Pleura: No effusion Chest wall: Normal Upper abdomen: Normal Bones: Degenerative changes thoracic spine Left atrial mapping: There are 2 right pulmonary veins. Right superior pulmonary vein: Orifice measures 18.4 mm. There is an immediate branch to the right middle lobe. Right inferior pulmonary vein: Orifice measures 20.6 mm. Distance to the first branch is approximately 17 mm. There are 2 left pulmonary veins. Left superior pulmonary vein: Orifice measures 15.4 mm. Distance to the first branch is 14.0 mm. Left inferior pulmonary vein orifice measures distance to the first branch measures approximately 16.7 mm IMPRESSION: There are 2 right pulmonary veins. Right superior pulmonary vein: Orifice measures 18.4 mm. There is an immediate branch to the right middle lobe. Right inferior pulmonary vein: Orifice measures 20.6 mm. Distance to the first branch is approximately 17 mm. There are 2 left pulmonary veins. Left superior pulmonary vein: Orifice measures 15.4 mm. Distance to the first branch is 14.0 mm. Left inferior pulmonary vein orifice measures distance to the first branch measures approximately 16.[address] scans at this facility use dose modulation iterative reconstruction and or weight balanced dosing when appropriate to reduce radiation dose to as low as reasonably achievable Electronically signed: Praveen Trevino. Normal [facility] Comment on above: Order Comment: Shaylee ryan schedule prior to March 12 [place] 03-02-2023 Lab [id number] Jessica Camarena ra 1940 Date Provider Department [place] 03/02/2023 2245-[facility] OPD LAB RESOURCE [facility] OPD RI Medical C No family history on file [facility] Office Visiton 02-27-2023 Follow-up visit [id number] Jessica Camarena ra 1940 Date Provider Department [place] 02/27/2023 1596-LEANNA VIVAS [facility] No family history on file Level of Service:41073 [place] OFFICE/OUTPATIENT ESTABLISHED MOD MDM 30-39 MIN Reason for Visit and Comments: Follow-up [767782] - One month follow up [facility] Prep for Procedureon 023 Prep for Procedure [id number] Jessica Camarena ra 1940 Provider Department [place] 02/12/2023 1987-LUCRECIA JOHNS [facility] VASC LAB RI HeartVAS No family history on file [facility] 36on 02-02-2023 36 Allergy medication o r saline rinses. Avoid decongestants such as sudafed/phenylephrine/ ephedrine Normal [facility] PROF CHEM 8 (BAS METB)on Anion gap [Moles/Vol] 12.8 mmol/L Normal [facility] Comment on above: Performed By: #### B MP, HSTROPN, CK #### [facility] [address] [place] [address] Dr. Manfred Brooks Calcium [Mass/Vol] 9.5 mg/dL Normal 8.5-10.1 [facility] Comment on above: Performed By: #### B MANN HSTROPN, CK #### [facility] [address] [address] [address] Manfred Brooks Chloride [Moles/Vol] 106 mmol/L Normal 98-107 [facility] Comment on above: Performed By: #### B MP HSTROPN, CK #### [facility] [address] [address] [address] Manfred Brooks CO2 [Moles/Vol] 27.3 mmol/L Normal 21.0-32.0 [facility] Comment on above: Performed By: #### B MANN HSTROPN, CK #### [facility] [address] [place] [address] Dr. Manfred Brooks Creatinine [Mass/Vol] 0.93 mg/dL Normal 0.55-1.02 [facility] Comment on above: Performed By: #### B MANN HSTROPN, CK #### [facility] [address] [address] [address] Manfred Brooks EGFR-AF URUGUAYAN >60 Normal >=60 [facility] Comment on above: Performed By: #### B MANN HSTROPN, CK #### [facility] [address] [place] [address] Dr. Manfred Brooks EGFR-NON AF URUGUAYAN 58 mL/min/1.73m2 Critically low >=60 [facility] Comment on above: Performed By: #### B MP, HSTROPN, CK #### [facility] [address] [address] [address] Manfred Brooks Glucose [Mass/Vol] 116 mg/dL Critically high 74-106 [facility] Comment on above: Performed By: #### B MP, HSTROPN, CK #### [facility] [address] [address] [address] Manfred Brooks Potassium [Moles/Vol] 4.1 mmol/L Normal 3.5-5.1 [facility] Comment on above: Performed By: #### B MANN, HSTROPN, CK #### [facility] [address] [place] [address] Dr. Manfred Brooks Sodium [Moles/Vol] 142 mmol/L Normal 136-145 [facility] Comment on above: Performed By: #### B MP, HSTROPN, CK #### [facility] [address] [place] [address] Dr. Manfred Brooks Urea nitrogen [Mass/Vol] 19.0 mg/dL Critically high 7.0-18.0 [facility] Comment on above: Performed By: #### B MP, HSTROPN, CK #### [facility] [address] [place] [address] Dr. Manfred Brooks Urea nitrogen/Creatinine [Mass ratio] 20.4 mg/mg Normal [facility] Comment on above: Performed By: #### B MP, HSTROPN, CK #### [facility] [address] [place] [address] Dr. Manfred Brooks CBC AUTO DIFFon 01-09-2023 BASO # 0.1 103/ul Normal 0.0-0.1 [facility] Comment on above: Performed By: #### C VDTBH #### [facility] [address] [place] [address] Dr. Manfred Brooks Basophils/100 WBC (Bld) 0.7 % Normal 0.2-2.0 [facility] Comment on above: Performed By: #### C VDTBH #### [facility] [address] [place] [address] Dr. Manfred Brooks EO # 0.1 103/ul Normal 0.0-0.7 [facility] Comment on above: Performed By: #### C VDTBH #### [facility] [address] [place] [address] Dr. Manfred Brooks Eosinophils/100 WBC (Bld) 1.9 % Normal 0.9-7.0 [facility] Comment on above: Performed By: #### C VDTBH #### [facility] [address] [place] [address] Dr. Manfred Brooks Erythrocyte distribution width (RBC) [Ratio] 15.5 % Critically high 11.0-15.0 [facility] Comment on above: Performed By: #### C VDTBH #### [facility] [address] [place] [address] Dr. Manfred Brooks Hematocrit (Bld) [Volume fraction] 39.1 % Normal 36.0-48.0 [facility] Comment on above: Performed By: #### C VDTBH #### [facility] [address] [place] [address] Dr. Manfred Brooks Hemoglobin (Bld) [Mass/Vol] 12.6 g/dL Normal 12.0-16.0 [facility] Comment on above: Performed By: #### C VDTBH #### [facility] [address] [place] [address] Dr. Manfred Brooks IG # 0.02 10e3/ul Normal 0.00-0.03 [facility] Comment on above: Performed By: #### C VDTBH #### [facility] [address] [place] [address] Dr. Manfred Brooks IG % 0.3 % Normal 0.0-0.5 [facility] Comment on above: Performed By: #### C VDTBH #### [facility] [address] [place] [address] Dr. Manfred Brooks LYMPH # 2.5 103/ul Normal 1.2-3.8 [facility] Comment on above: Performed By: #### C VDTBH #### [facility] [address] [place] [address] Dr. Manfred Brooks Lymphocytes/100 WBC (Bld) 36.2 % Normal 20.5-60.0 [facility] Comment on above: Performed By: #### C VDTBH #### [facility] [address] [place] [address] Dr. Manfred Brooks MANUAL DIFF REQ NO Normal [facility] Comment on above: Performed By: #### C VDTBH #### [facility] [address] [place] [address] Dr. Manfred Brooks MCH (RBC) [Entitic mass] 29.0 pg Normal 26.7-34.0 [facility] Comment on above: Performed By: #### C VDTBH #### [facility] [address] [place] [address] Dr. Manfred Brooks MCHC (RBC) [Mass/Vol] 32.2 g/dL Normal 29.9-35.2 [facility] Comment on above: Performed By: #### C VDTBH #### [facility] [address] [place] [address] Dr. Manfred Brooks MCV (RBC) [Entitic vol] 89.9 fL Normal 81.0-99.0 [facility] Comment on above: Performed By: #### C VDTBH #### [facility] [address] [place] [address] Dr. Manfred Brooks MONO # 0.6 103/ul Normal 0.3-0.8 [facility] Comment on above: Performed By: #### C VDTBH #### [facility] [address] [place] [address] Dr. Manfred Brooks Monocytes/100 WBC (Bld) 9.2 % Normal 1.7-12.0 [facility] Comment on above: Performed By: #### C VDTBH #### [facility] [address] [place] [address] Dr. Manfred Brooks NEUT # 3.5 103/ul Normal 1.4-6.5 [facility] Comment on above: Performed By: #### C VDTBH #### [facility] [address] [place] [address] Dr. Manfred Brooks Neutrophils/100 WBC (Bld) 51.7 % Normal 43.0-75.0 [facility] Comment on above: Performed By: #### C VDTBH #### [facility] [address] [place] [address] Dr. Manfred Brooks Platelet mean volume (Bld) [Entitic vol] 11.3 fL Normal 9.5-13.5 [facility] Comment on above: Performed By: #### C VDTBH #### [facility] [address] [address] [address] Manfred Brooks PLT 215 103/ul Normal 150-450 [facility] Comment on above: Performed By: #### C VDTBH #### [facility] [address] [place] [address] Dr. Manfred Brooks RBC 4.35 106/ul Normal 4.20-5.40 [facility] Comment on above: Performed By: #### C VDTBH #### [facility] [address] [place] [address] Dr. Manfred Brooks WBC 6.8 103/ul Normal 4.0-11.0 [facility] Comment on above: Performed By: #### C VDTBH #### [facility] [address] [place] [address] Dr. Manfred Brooks CPKon 01-09-2023 CK [Catalytic activity/Vol] 121 U/L Normal 26-192 [facility] Comment on above: Performed By: #### B MP, HSTROPN, CK #### [facility] [address] [place] [address] Dr. Manfred Brooks PROF CHEM 8 (BAS METB)on Anion gap [Moles/Vol] 14.2 mmol/L Normal [facility] Comment on above: Performed By: #### B MP, HSTROPN, CK #### [facility] [address] [place] [address] Dr. Manfred Brooks Calcium [Mass/Vol] 9.3 mg/dL Normal 8.5-10.1 [facility] Comment on above: Performed By: #### B MP, HSTROPN, CK #### [facility] [address] [place] [address] Dr. Manfred Brooks Chloride [Moles/Vol] 103 mmol/L Normal 98-107 [facility] Comment on above: Performed By: #### B MP, HSTROPN, CK #### [facility] [address] [place] [address] Dr. Manfred Brooks CO2 [Moles/Vol] 30.5 mmol/L Normal 21.0-32.0 [facility] Comment on above: Performed By: #### B MANN HSTROPN, CK #### [facility] [address] [address] [address] Manfred Brooks Creatinine [Mass/Vol] 0.76 mg/dL Normal 0.55-1.02 [facility] Comment on above: Performed By: #### B MP HSTROPN, CK #### [facility] [address] [address] [address] Manfred Brooks EGFR-AF URUGUAYAN >60 Normal >=60 [facility] Comment on above: Performed By: #### B MANN HSTROPN, CK #### [facility] [address] [place] [address] Dr. Manfred Brooks EGFR-NON AF URUGUAYAN >60 Normal >=60 [facility] Comment on above: Performed By: #### B MANN HSTROPN, CK #### [facility] [address] [address] [address] Manfred Brooks Glucose [Mass/Vol] 97 mg/dL Normal 74-106 [facility] Comment on above: Performed By: #### B MANN HSTROPN, CK #### [facility] [address] [address] [address] Manfred Brooks Potassium [Moles/Vol] 4.7 mmol/L Normal 3.5-5.1 [facility] Comment on above: Performed By: #### B MANN HSTROPN, CK #### [facility] [address] [place] [address] Dr. Manfred Brooks Sodium [Moles/Vol] 143 mmol/L Normal 136-145 [facility] Comment on above: Performed By: #### B MANN HSTROPN, CK #### [facility] [address] [place] [address] Dr. Manfred Brooks Urea nitrogen [Mass/Vol] 16.0 mg/dL Normal 7.0-18.0 [facility] Comment on above: Performed By: #### B MANN, HSTROPN, CK #### [facility] [address] [address] [address] Manfred Brooks Urea nitrogen/Creatinine [Mass ratio] 21.1 mg/mg Normal [facility] Comment on above: Performed By: #### B MANN HSTROPN, CK #### [facility] [address] [address] [address] Manfred Brooks TROPONIN, HIGH SENSITIVITYon 01-09-2023 HSTROP 6.1 pg/mL Normal 4.0-51.3 [facility] Comment on above: Result Comment: CUT- OFF POINTS HAVE BEEN ESTABLISHED BASED ON THE FOURTH UNIVERSAL DEFINITIONS OF MYOCARDIAL INFARCTION. THE UPPER REFERENCE LIMIT (URL) OF TROPONIN, DEFINED THE 99TH PERCENTILE OF cTnI DISTRIBUTION IN A REFERENCE POPULATION, HAS BEEN CONFIRMED THE DECISION THRESHOLD FOR [place] DIAGNOSIS. Performed By: #### B MANN HSTROPJim, CK #### [facility] [address] [place] [address] Dr. Manfred Brooks XR CHEST 1 Von 01-09-2023 XR CHEST 1 V EXAM: XR CHEST 1 V HISTORY: NAUSEA WITH VOMITING, UNSPECIFIED COMPARISON: Multiple prior examinations including 12/29/2021. TECHNIQUE: Chest X-ray AP, 1 view. FINDINGS: Support devices: A device projects over the midline of the cardiac silhouette. Lungs/pleura: Minimal basilar opacities are unchanged. No consolidation. No effusion or pneumothorax. Heart and mediastinum: Stable contours compared to prior examination. Bones: No acute abnormality identified. IMPRESSION: No substantial change. Minimal basilar opacities are favored represent atelectasis over infiltrate. Electronically authenticated by: NICOLE CLINE Date: 2023-01-09 08:12 Normal [facility] CBC AUTO DIFFon 01-07-2023 BASO # 0.1 103/ul Normal 0.0-0.1 [facility] Comment on above: Performed By: #### B MANN HSTROPN, CK #### [facility] [address] [place] [address] Dr. Manfred Brooks Basophils/100 WBC (Bld) 0.8 % Normal 0.2-2.0 [facility] Comment on above: Performed By: #### B MANN HSTROPN, CK #### [facility] [address] [place] [address] Dr. Manfred Brooks EO # 0.1 103/ul Normal 0.0-0.7 [facility] Comment on above: Performed By: #### B MP, HSTROPN, CK #### [facility] [address] [place] [address] Dr. Manfred Brooks Eosinophils/100 WBC (Bld) 2.4 % Normal 0.9-7.0 [facility] Comment on above: Performed By: #### B MP, HSTROPN, CK #### [facility] [address] [place] [address] Dr. Manfred Brooks Erythrocyte distribution width (RBC) [Ratio] 15.6 % Critically high 11.0-15.0 [facility] Comment on above: Performed By: #### B MANN HSTROPN, CK #### [facility] [address] [place] [address] Dr. Manfred Brooks Hematocrit (Bld) [Volume fraction] 36.6 % Normal 36.0-48.0 [facility] Comment on above: Performed By: #### B MANN HSTROPN, CK #### [facility] [address] [place] [address] Dr. Manfred Brooks Hemoglobin (Bld) [Mass/Vol] 11.8 g/dL Critically low 12.0-16.0 [facility] Comment on above: Result Comment: RON ENT RECIEVED FLUIDS YESTERDAY AFTER MORNING CBC Performed By: #### B MP, HSTROPN, CK #### [facility] [address] [place] [address] Dr. Manfred Brooks IG # 0.01 10e3/ul Normal 0.00-0.03 [facility] Comment on above: Performed By: #### B MANN HSTROPN, CK #### [facility] [address] [place] [address] Dr. Manfred Brooks IG % 0.2 % Normal 0.0-0.5 [facility] Comment on above: Performed By: #### B MP, HSTROPN, CK #### [facility] [address] [place] [address] Dr. Manfred Brooks LYMPH # 2.1 103/ul Normal 1.2-3.8 [facility] Comment on above: Performed By: #### B MP, HSTROPN, CK #### [facility] [address] [place] [address] Dr. Manfred Brooks Lymphocytes/100 WBC (Bld) 35.1 % Normal 20.5-60.0 [facility] Comment on above: Performed By: #### B MP, HSTROPN, CK #### [facility] [address] [place] [address] Dr. Manfred Brooks MANUAL DIFF REQ NO Normal [facility] Comment on above: Performed By: #### B MP, HSTROPN, CK #### [facility] [address] [place] [address] Dr. Manfred Brooks MCH (RBC) [Entitic mass] 28.9 pg Normal 26.7-34.0 [facility] Comment on above: Performed By: #### B MP, HSTROPN, CK #### [facility] [address] [place] [address] Dr. Manfred Brooks MCHC (RBC) [Mass/Vol] 32.2 g/dL Normal 29.9-35.2 [facility] Comment on above: Performed By: #### B MP, HSTROPN, CK #### [facility] [address] [place] [address] Dr. Manfred Brooks MCV (RBC) [Entitic vol] 89.7 fL Normal 81.0-99.0 [facility] Comment on above: Performed By: #### B MP, HSTROPN, CK #### [facility] [address] [place] [address] Dr. Manfred Brooks MONO # 0.6 103/ul Normal 0.3-0.8 [facility] Comment on above: Performed By: #### B MP, HSTROPN, CK #### [facility] [address] [place] [address] Dr. Manfred Brooks Monocytes/100 WBC (Bld) 9.4 % Normal 1.7-12.0 [facility] Comment on above: Performed By: #### B MANN HSTROPN, CK #### [facility] [address] [address] [address] Manfred Brooks NEUT # 3.1 103/ul Normal 1.4-6.5 [facility] Comment on above: Performed By: #### B MANN HSTROPN, CK #### [facility] [address] [place] [address] Dr. Manfred Brooks Neutrophils/100 WBC (Bld) 52.1 % Normal 43.0-75.0 [facility] Comment on above: Performed By: #### B MANN HSTROPN, CK #### [facility] [address] [place] [address] Dr. Manfred Brooks Platelet mean volume (Bld) [Entitic vol] 10.3 fL Normal 9.5-13.5 [facility] Comment on above: Performed By: #### B MANN, HSTROPN, CK #### [facility] [address] [place] [address] Dr. Manfred Brooks PLT 252 103/ul Normal 150-450 [facility] Comment on above: Performed By: #### B MANN, HSTROPN, CK #### [facility] [address] [place] [address] Dr. Manfred Brooks RBC 4.08 106/ul Critically low 4.20-5.40 [facility] Comment on above: Performed By: #### B MP, HSTROPN, CK #### [facility] [address] [place] [address] Dr. Manfred Brooks WBC 5.9 103/ul Normal 4.0-11.0 [facility] Comment on above: Performed By: #### B MANN, HSTROPN, CK #### [facility] [address] [place] [address] Dr. Manfred Brooks DIGOXINon 01-07-2023 DIG 0.5 ng/mL Critically low 0.9-2.0 [facility] Comment on above: Performed By: #### E ANU HOGANAVILA #### [facility] [address] [address] [address] Manfred Brooks PROF 14(COMP METB)on 023 Albumin [Mass/Vol] 3.6 g/dL Normal 3.4-5.0 [facility] Comment on above: Performed By: #### C VDTBH #### [facility] [address] [address] [address] Manfred Brooks Albumin/Globulin [Mass ratio] 1.3 {ratio} Normal [facility] Comment on above: Performed By: #### C VDTBH #### [facility] [address] [place] [address] Dr. Manfred Brooks ALP [Catalytic activity/Vol] 67 U/L Normal 46-116 [facility] Comment on above: Performed By: #### C VDTBH #### [facility] [address] [place] [address] Dr. Manfred Brooks ALT [Catalytic activity/Vol] 23 U/L Normal 14-59 [facility] Comment on above: Performed By: #### C VDTBH #### [facility] [address] [place] [address] Dr. Manfred Brooks Anion gap [Moles/Vol] 10.8 mmol/L Normal [facility] Comment on above: Performed By: #### C VDTBH #### [facility] [address] [address] [address] Manfred Brooks AST [Catalytic activity/Vol] 14 U/L Critically low 15-37 [facility] Comment on above: Performed By: #### C VDTBH #### [facility] [address] [address] [address] Manfred Brooks Bilirubin [Mass/Vol] 0.7 mg/dL Normal 0.2-1.0 [facility] Comment on above: Performed By: #### C VDTBH #### [facility] [address] [address] [address] Manfred Brooks Calcium [Mass/Vol] 8.7 mg/dL Normal 8.5-10.1 [facility] Comment on above: Performed By: #### C VDTBH #### [facility] [address] [place] [address] Dr. Manfred Brooks Chloride [Moles/Vol] 106 mmol/L Normal 98-107 [facility] Comment on above: Performed By: #### C VDTBH #### [facility] [address] [place] [address] Dr. Manfred Brooks CO2 [Moles/Vol] 29.8 mmol/L Normal 21.0-32.0 [facility] Comment on above: Performed By: #### C VDTBH #### [facility] [address] [place] [address] Dr. Manfred Brooks Creatinine [Mass/Vol] 0.77 mg/dL Normal 0.55-1.02 [facility] Comment on above: Performed By: #### C VDTBH #### [facility] [address] [place] [address] Dr. Manfred Brooks EGFR-AF URUGUAYAN >60 Normal >=60 [facility] Comment on above: Performed By: #### C VDTBH #### [facility] [address] [place] [address] Dr. Manfred Brooks EGFR-NON AF URUGUAYAN >60 Normal >=60 [facility] Comment on above: Performed By: #### C VDTBH #### [facility] [address] [place] [address] Dr. Manfred Brooks Globulin (S) [Mass/Vol] 2.7 g/dL Normal [facility] Comment on above: Performed By: #### C VDTBH #### [facility] [address] [place] [address] Dr. Manfred Brooks Glucose [Mass/Vol] 99 mg/dL Normal 74-106 [facility] Comment on above: Performed By: #### C VDTBH #### [facility] [address] [place] [address] Dr. Manfred Brooks Potassium [Moles/Vol] 3.6 mmol/L Normal 3.5-5.1 [facility] Comment on above: Performed By: #### C VDTBH #### [facility] [address] [place] [address] Dr. Manfred Brooks Protein [Mass/Vol] 6.3 g/dL Critically low 6.4-8.2 [facility] Comment on above: Performed By: #### C VDTBH #### [facility] [address] [place] [address] Dr. Manfred Brooks Sodium [Moles/Vol] 143 mmol/L Normal 136-145 [facility] Comment on above: Performed By: #### C VDTBH #### [facility] [address] [place] [address] Dr. Manfred Brooks Urea nitrogen [Mass/Vol] 19.0 mg/dL Critically high 7.0-18.0 [facility] Comment on above: Performed By: #### C VDTBH #### [facility] [address] [place] [address] Dr. Manfred Brooks Urea nitrogen/Creatinine [Mass ratio] 24.7 mg/mg Normal [facility] Comment on above: Performed By: #### C VDTBH #### [facility] [address] [place] [address] Dr. Manfred Brooks BNPon 01-06-2023 Natriuretic peptide B (Bld) [Mass/Vol] 186.0 pg/mL Normal <=1,800.0 [facility] Comment on above: Performed By: #### E MILTON HOGAN #### [facility] [address] [place] [address] Dr. Manfred Brooks CBC AUTO DIFFon 01-06-2023 BASO # 0.1 103/ul Normal 0.0-0.1 [facility] Comment on above: Performed By: #### B CABLE WORKER HELPER, CMP #### [facility] [address] [place] [address] Dr. Manfred Brooks Basophils/100 WBC (Bld) 1.2 % Normal 0.2-2.0 [facility] Comment on above: Performed By: #### B CABLE WORKER HELPER, CMP #### [facility] [address] [place] [address] Dr. Manfred Brooks EO # 0.1 103/ul Normal 0.0-0.7 [facility] Comment on above: Performed By: #### B CABLE WORKER HELPER, CMP #### [facility] [address] [place] [address] Dr. Manfred Brooks Eosinophils/100 WBC (Bld) 2.1 % Normal 0.9-7.0 [facility] Comment on above: Performed By: #### B CABLE WORKER HELPER, CMP #### [facility] [address] [place] [address] Dr. Manfred Brooks Erythrocyte distribution width (RBC) [Ratio] 15.2 % Critically high 11.0-15.0 [facility] Comment on above: Performed By: #### B CABLE WORKER HELPER, CMP #### [facility] [address] [place] [address] Dr. Manferd Brooks Hematocrit (Bld) [Volume fraction] 42.3 % Normal 36.0-48.0 [facility] Comment on above: Performed By: #### B CABLE WORKER HELPER, CMP #### [facility] [address] [place] [address] Dr. Manfred Brooks Hemoglobin (Bld) [Mass/Vol] 13.8 g/dL Normal 12.0-16.0 [facility] Comment on above: Performed By: #### B CABLE WORKER HELPER, CMP #### [facility] [address] [place] [address] Dr. Manfred Brooks IG # 0.01 10e3/ul Normal 0.00-0.03 [facility] Comment on above: Performed By: #### B CABLE WORKER HELPER, CMP #### [facility] [address] [place] [address] Dr. Manfred Brooks IG % 0.2 % Normal 0.0-0.5 [facility] Comment on above: Performed By: #### B CABLE WORKER HELPER, CMP #### [facility] [address] [place] [address] Dr. Manfred Brooks LYMPH # 2.1 103/ul Normal 1.2-3.8 [facility] Comment on above: Performed By: #### B CABLE WORKER HELPER, CMP #### [facility] [address] [place] [address] Dr. Manfred Brooks Lymphocytes/100 WBC (Bld) 35.6 % Normal 20.5-60.0 [facility] Comment on above: Performed By: #### B CABLE WORKER HELPER, CMP #### [facility] [address] [place] [address] Dr. Manfred Brooks MANUAL DIFF REQ NO Normal [facility] Comment on above: Performed By: #### B CABLE WORKER HELPER, CMP #### [facility] [address] [place] [address] Dr. Manfred Brooks MCH (RBC) [Entitic mass] 29.1 pg Normal 26.7-34.0 [facility] Comment on above: Performed By: #### B CABLE WORKER HELPER, CMP #### [facility] [address] [place] [address] Dr. Manfred Brooks MCHC (RBC) [Mass/Vol] 32.6 g/dL Normal 29.9-35.2 [facility] Comment on above: Performed By: #### B CABLE WORKER HELPER, CMP #### [facility] [address] [place] [address] Dr. Manfred Brooks MCV (RBC) [Entitic vol] 89.2 fL Normal 81.0-99.0 [facility] Comment on above: Performed By: #### B CABLE WORKER HELPER, CMP #### [facility] [address] [place] [address] Dr. Manfred Brooks MONO # 0.5 103/ul Normal 0.3-0.8 [facility] Comment on above: Performed By: #### B CABLE WORKER HELPER, CMP #### [facility] [address] [place] [address] Dr. Manfred Brooks Monocytes/100 WBC (Bld) 9.0 % Normal 1.7-12.0 [facility] Comment on above: Performed By: #### B CABLE WORKER HELPER, CMP #### [facility] [address] [place] [address] Dr. Manfred Brooks NEUT # 3.0 103/ul Normal 1.4-6.5 [facility] Comment on above: Performed By: #### B CABLE WORKER HELPER, CMP #### [facility] [address] [place] [address] Dr. Manfred Brooks Neutrophils/100 WBC (Bld) 51.9 % Normal 43.0-75.0 [facility] Comment on above: Performed By: #### B CABLE WORKER HELPER, CMP #### [facility] [address] [place] [address] Dr. Manfred Brooks Platelet mean volume (Bld) [Entitic vol] 10.1 fL Normal 9.5-13.5 [facility] Comment on above: Performed By: #### B CABLE WORKER HELPER, CMP #### [facility] [address] [place] [address] Dr. Manfred Brooks PLT 290 103/ul Normal 150-450 [facility] Comment on above: Performed By: #### B CABLE WORKER HELPER, CMP #### [facility] [address] [place] [address] Dr. Manfred Brooks RBC 4.74 106/ul Normal 4.20-5.40 [facility] Comment on above: Performed By: #### B CABLE WORKER HELPER, CMP #### [facility] [address] [place] [address] Dr. Manfred Brooks WBC 5.8 103/ul Normal 4.0-11.0 [facility] Comment on above: Performed By: #### B CABLE WORKER HELPER, CMP #### [facility] [address] [place] [address] Dr. Manfred Brooks [facility]11 SARS-CoV-2 (COVID-19) RNA DAMIR+probe Ql (Unsp spec) Not detected Normal NOT DETECTED [facility] Comment on above: Result Comment: When diagnostic testing is negative, the possibility of a false negative should be considered in the context of a patient's recent exposures and the presence of clinical signs and symptoms consistent with SARS-CoV-2. This test is not yet approved or cleared by the [place] FDA. When there are no FDA-approved or cleared tests available, and other criteria are met, FDA can make tests available under an emergency access mechanism called an Emergency Use Authorization (EUA). The EUA for this test is supported by the [employer] Operator of Health and Human Service's declaration that circumstances exist to justify the emergency use of in vitro diagnostics for the detection and/or diagnosis of the virus that causes COVID-19. This EUA will remain in effect for the duration of the COVID-19 declaration justifying emergency of IVDs, unless it is terminated or revoked by the FDA (after which the test may no longer be used). Performed By: #### C [facility] #### [facility] [address] [place] [address] Dr. Manfred Brooks ECHOCARDIO M/2D COMPLETEon 0 01-06-2023 ECHOCARDIO M/2D COMPLETE Patient: BETTY CAMARENA Exam Date: 01/06/2023 : 1940 Gender:F Ordering : DR CAM BATES . Admission #: [id number] Family : DR DENISA ALEJANDRE M.D. Order #: [id number] CLICK HERE TO VIEW EXAM ECHOCARDIOGRAM REPORT PROCEDURE: CARDIO PULMONARY ECHOCARDIO M/2D COMP INDICATIONS: Atrial fibrillation COMPARISON: None. DESCRIPTION: COMPLETE ECHOCARDIOGRAM Real-time transthoracic echocardiography with 2D, M-mode, spectral and color flow Doppler performed. QUALITY: Technically difficult due to patients condition. LEFT VENTRICLE: Normal chamber size. Mild concentric left ventricular hypertrophy. Normal systolic function. LV EF: Normal left ventricular ejection fraction, (>55%). DIASTOLIC: Normal diastolic function. ATRIAL SEPTUM: LEFT ATRIUM: Mild dilatation. RIGHT ATRIUM: Normal chamber size. RIGHT VENTRICLE: Normal chamber size. Normal systolic function. TRICUSPID VALVE: Normal mobility and thickness. No stenosis with trivial regurgitation. Unable to assess right sided pressures due to lack of measurable tricuspid regurgitation. MITRAL VALVE: Mildly thickened with normal mobility. No evidence of mitral valve stenosis. Mild mitral annular calcification. No mitral regurgitation. AORTIC VALVE: Normal trileaflet appearance. Mildly calcified aortic valve. Normal leaflet mobility. No evidence of aortic valve stenosis. No aortic regurgitation. AORTIC ROOT: Normal diameter and appearance. PULMONIC VALVE: Normal thickness and mobility. No stenosis. No regurgitation. PERICARDIUM: No evidence of pericardial effusion. IVC: Collapses with inspirations. PLEURA: CONCLUSION: 1. Mild concentric left ventricular hypertrophy. Normal left ventricular systolic function. LVEF is 55 to 60%. 2. Normal right ventricular size and systolic function. 3. Normal diastolic function. 4. Mildly dilated left atrium. 5. No significant valvular dysfunction. 6. Unable to assess right-sided pressures due to lack of measurable tricuspid regurgitation. 7. The patient appears to be in sinus rhythm during the exam. Adult Echocardiography Procedure Report Left Ventricle LVEDD (3.7 - 5.6 cm): 4.04 cm LVESD (2.2 - 4.0 cm): 2.86 cm LVIVS thickness (0.6 - 1.2 cm): 1.50 cm LVPW thickness (0.5 - 1.0 cm): 1.07 cm e': 0.08 m/s E - e': 7.07 LVOT Max Gradient: 2.03 mm[Hg] Peak Velocity (LVOT): 0.71 m/s LVOT Diameter 2.08 cm Left Ventricular Ejection Fraction: 55-60 % Left Atrium LA Volume Index (2D A2C): 65.70 ml, 65.70 ml Left Atrium Systolic Dimension: 3.91 cm Mitral Valve MV E to A Ratio: 0.87 Mitral Valve A-Wave Peak Velocity: 0.68 m/s Mitral Valve E-Wave Peak Velocity: 0.59 m/s Right Ventricle Aorta AO Root Diam: 3.68 cm Aortic Valve AoV Area (Peak Jm): 2.50 cm2, 2.50 cm2 Peak Velocity(Antegrade Flow): 0.96 m/s Peak Gradient(Antegrade Flow): 3.72 mm[Hg] Tricuspid Valve Pulmonic Valve Peak Velocity: 0.99 m/s, 1.00 m/s Peak Gradient: 3.93 mm[Hg], 4.04 mm[Hg] Right Atrium Dictated by: Denisa Alejandre M.D. on 01/06/2023 at 17:28 Approved by: Denisa Alejandre M.D. on 01/06/2023 at 17:34 Normal [facility] FREE T3on 01-06-2023 FREE T3 5.79 pg/mlL Critically high 2.18-3.98 [facility] Comment on above: Performed By: #### C [facility] #### [facility] [address] [place] [address] Dr. Manfred Boroks LACTATE/LACTIC ACIDon 2022 Lactate [Moles/Vol] 1.6 mmol/L Normal 0.4-2.0 [facility] Comment on above: Performed By: #### B MP, HSTROPN, CK #### [facility] [address] [place] [address] Dr. Manfred Brooks PROF 14(COMP METB)on 023 Albumin [Mass/Vol] 4.1 g/dL Normal 3.4-5.0 [facility] Comment on above: Performed By: #### ANU BENOITRO #### [facility] [address] [place] [address] Dr. Manfred Brooks Albumin/Globulin [Mass ratio] 1.2 {ratio} Normal [facility] Comment on above: Performed By: #### ANU BENOITRO #### [facility] [address] [place] [address] Dr. Manfred Brooks ALP [Catalytic activity/Vol] 74 U/L Normal 46-116 [facility] Comment on above: Performed By: #### ANU BENOITRO #### [facility] [address] [place] [address] Dr. Manfred Brooks ALT [Catalytic activity/Vol] 29 U/L Normal 14-59 [facility] Comment on above: Performed By: #### ANU BENOITRO #### [facility] [address] [place] [address] Dr. Manfred Brooks Anion gap [Moles/Vol] 13.8 mmol/L Normal [facility] Comment on above: Performed By: #### ANU BENOITRO #### [facility] [address] [place] [address] Dr. Manfred Brooks AST [Catalytic activity/Vol] 19 U/L Normal 15-37 [facility] Comment on above: Performed By: #### ANU BENOITRO #### [facility] [address] [place] [address] Dr. Manfred Brooks Bilirubin [Mass/Vol] 0.4 mg/dL Normal 0.2-1.0 [facility] Comment on above: Performed By: #### E RUR, UMICRO #### [facility] [address] [address] [address] Manfred Brooks Calcium [Mass/Vol] 9.6 mg/dL Normal 8.5-10.1 [facility] Comment on above: Performed By: #### E JAMILAR, UMICRO #### [facility] [address] [address] [address] Manfred Brooks Chloride [Moles/Vol] 108 mmol/L Critically high 98-107 [facility] Comment on above: Performed By: #### E SAMIRA, UMICRO #### [facility] [address] [address] [address] Manfred Brooks CO2 [Moles/Vol] 31.0 mmol/L Normal 21.0-32.0 [facility] Comment on above: Performed By: #### Nikolas HOGAN, UMICRO #### [facility] [address] [place] [address] Dr. Manfred Brooks Creatinine [Mass/Vol] 0.80 mg/dL Normal 0.55-1.02 [facility] Comment on above: Performed By: #### Nikolas HOGAN, UMICRO #### [facility] [address] [place] [address] Dr. Manfred Brooks EGFR-AF URUGUAYAN >60 Normal >=60 [facility] Comment on above: Performed By: #### Nikolas HOGAN, UMICRO #### [facility] [address] [place] [address] Dr. Manfred Brooks EGFR-NON AF URUGUAYAN >60 Normal >=60 [facility] Comment on above: Performed By: #### E SAMIRA, UMICRO #### [facility] [address] [address] [address] Manfred Brooks Globulin (S) [Mass/Vol] 3.3 g/dL Normal [facility] Comment on above: Performed By: #### E SAMIRA, UMICRO #### [facility] [address] [place] [address] Dr. Manfred Brooks Glucose [Mass/Vol] 132 mg/dL Critically high 74-106 [facility] Comment on above: Performed By: #### ANU BENOITRO #### [facility] [address] [place] [address] Dr. Manfred Brooks Potassium [Moles/Vol] 3.8 mmol/L Normal 3.5-5.1 [facility] Comment on above: Performed By: #### Nikolas HOGAN UMICRO #### [facility] [address] [place] [address] Dr. Manfred Brooks Protein [Mass/Vol] 7.4 g/dL Normal 6.4-8.2 [facility] Comment on above: Performed By: #### Nikolas HOGAN UMICRO #### [facility] [address] [place] [address] Dr. Manfred Brooks Sodium [Moles/Vol] 149 mmol/L Critically high 136-145 [facility] Comment on above: Performed By: #### ANU BENOITRO #### [facility] [address] [place] [address] Dr. Manfred Brooks Urea nitrogen [Mass/Vol] 20.0 mg/dL Critically high 7.0-18.0 [facility] Comment on above: Performed By: #### ANU BENOITRO #### [facility] [address] [place] [address] Dr. Manfred Brooks Urea nitrogen/Creatinine [Mass ratio] 25.0 mg/mg Normal [facility] Comment on above: Performed By: #### ANU BENOITRO #### [facility] [address] [place] [address] Dr. Manfred Brooks PROTIMEon 01-06-2023 INR Coag (PPP) [Relative time] 0.99 {INR} Normal [facility] Comment on above: Performed By: #### B MP, VENESSATRDANNIELLE, CK #### [facility] [address] [place] [address] Dr. Manfred Brooks INR GUIDELINES SEE BELOW Normal [facility] Comment on above: Result Comment: JUSTYN RED INR: 2.0 - 3.0 CONDITIONS NOT LISTED BELOW 2.5 - 3.5 FOR PROSTHETIC HEART VALVE REPLACEMENT 2.5 - 3.5 RECURRENT THROMBOSIS Performed By: #### B MP, HSTROPN, CK #### [facility] [address] [place] [address] Dr. Manfred Brooks PT Coag (PPP) [Time] 10.5 s Normal 9.0-11.6 [facility] Comment on above: Performed By: #### B MP, HSTROPN, CK #### [facility] [address] [place] [address] Dr. Manfred Brooks PTTon 01-06-2023 aPTT Coag (Bld) [Time] 28.9 s Normal 22.3-36.2 [facility] Comment on above: Performed By: #### B MP, HSTROPN, CK #### [facility] [address] [place] [address] Dr. Manfred Brooks T4on 01-06-2023 T4 [Mass/Vol] 8.00 ug/dL Normal 4.80-13.90 [facility] Comment on above: Performed By: #### B CABLE WORKER HELPER, CMP #### [facility] [address] [place] [address] Dr. Manfred Brooks TROPONIN, HIGH SENSITIVITYon 01-06-2023 HSTROP 18.1 pg/mL Normal 4.0-51.3 [facility] Comment on above: Result Comment: CUT- OFF POINTS HAVE BEEN ESTABLISHED BASED ON THE FOURTH UNIVERSAL DEFINITIONS OF MYOCARDIAL INFARCTION. THE UPPER REFERENCE LIMIT (URL) OF TROPONIN, DEFINED THE 99TH PERCENTILE OF cTnI DISTRIBUTION IN A REFERENCE POPULATION, HAS BEEN CONFIRMED THE DECISION THRESHOLD FOR [place] DIAGNOSIS. Performed By: #### E RUR, UMICRO #### [facility] [address] [place] [address] Dr. Manfred Brooks HSTROP 10.5 pg/mL Normal 4.0-51.3 [facility] Comment on above: Result Comment: CUT- OFF POINTS HAVE BEEN ESTABLISHED BASED ON THE FOURTH UNIVERSAL DEFINITIONS OF MYOCARDIAL INFARCTION. THE UPPER REFERENCE LIMIT (URL) OF TROPONIN, DEFINED THE 99TH PERCENTILE OF cTnI DISTRIBUTION IN A REFERENCE POPULATION, HAS BEEN CONFIRMED THE DECISION THRESHOLD FOR NH DIAGNOSIS. Performed By: #### E RUR, UMICRO #### [facility] [address] [place] [address] Dr. Manfred Brooks TSHon 01-06-2023 TSH 0.567 uIU/mL Normal 0.358-3.740 [facility] Comment on above: Performed By: #### C VDTB #### [facility] [address] [place] [address] Dr. Manfred Brooks XR CHEST 1 Von 01-06-2023 XR CHEST 1 V EXAMINATION: XR CHES T 1 V HISTORY: SHORTNESS OF BREATH , tachycardia COMPARISON: XR chest 05/16/2022 FINDINGS: LUNGS: Minimal haziness and stranding within lung bases. VASCULATURE: No increased pulmonary vasculature. PLEURA: No pneumothorax, effusion, or pleural thickening. CARDIAC: No cardiomegaly or cardiac silhouette abnormality. MEDIASTINUM: No visible mass or adenopathy. BONES: No fracture or visible bone lesion. OTHER: Negative. IMPRESSION: 1. Trace amount of bibasilar atelectasis versus infiltrates. Electronically authenticated by: ALLY MCKEON Date: 2023-01-06 07:11 Normal [facility] PROF CHEM 8 (BAS METB)on Anion gap [Moles/Vol] 13.1 mmol/L Normal [facility] Comment on above: Performed By: #### ANU BENOITRO #### [facility] [address] [place] [address] Dr. Manfred Brooks Calcium [Mass/Vol] 9.3 mg/dL Normal 8.5-10.1 [facility] Comment on above: Performed By: #### ANU BENIOTRO #### [facility] [address] [place] [address] Dr. Manfred Brooks Chloride [Moles/Vol] 104 mmol/L Normal 98-107 [facility] Comment on above: Performed By: #### ANU BENOITRO #### [facility] [address] [place] [address] Dr. Manfred Brooks CO2 [Moles/Vol] 29.7 mmol/L Normal 21.0-32.0 [facility] Comment on above: Performed By: #### E RUR, UMICRO #### [facility] [address] [address] [address] Manfred Brooks Creatinine [Mass/Vol] 0.72 mg/dL Normal 0.55-1.02 [facility] Comment on above: Performed By: #### E RUR, UMICRO #### [facility] [address] [address] [address] Manfred Brooks EGFR-AF URUGUAYAN >60 Normal >=60 [facility] Comment on above: Performed By: #### E RUR, UMICRO #### [facility] [address] [address] [address] Manfred Brooks EGFR-NON AF URUGUAYAN >60 Normal >=60 [facility] Comment on above: Performed By: #### E RUR, UMICRO #### [facility] [address] [place] [address] Dr. Manfred Brooks Glucose [Mass/Vol] 129 mg/dL Critically high 74-106 T [facility] Comment on above: Performed By: #### E JAMILAR, UMICRO #### [facility] [address] [place] [address] Dr. Manfred Brooks Potassium [Moles/Vol] 4.8 mmol/L Normal 3.5-5.1 [facility] Comment on above: Result Comment: spec imen slightly hemolysed. suggest repeat. Performed By: #### E RUR, UMICRO #### [facility] [address] [place] [address] Dr. Manfred Brooks Sodium [Moles/Vol] 142 mmol/L Normal 136-145 [facility] Comment on above: Performed By: #### E RUR, UMICRO #### [facility] [address] [address] [address] Manfred Brooks Urea nitrogen [Mass/Vol] 17.0 mg/dL Normal 7.0-18.0 [facility] Comment on above: Performed By: #### E RUR, UMICRO #### [facility] [address] [address] [address] Manfred Brooks Urea nitrogen/Creatinine [Mass ratio] 23.6 mg/mg Normal [facility] Comment on above: Performed By: #### E MILTON HOGAN #### [facility] [address] [address] [address] Manfred Brooks BNPon 05-16-2022 Natriuretic peptide B (Bld) [Mass/Vol] 322.0 pg/mL Normal <=1,800.0 [facility] Comment on above: Performed By: #### B MP, HSTROPN, CK #### [facility] [address] [address] [address] Manfred Brooks CARDIAC TELMA ADMITon 022 CK [Catalytic activity/Vol] 109 U/L Normal 26-192 [facility] Comment on above: Performed By: #### B MP, HSTROPN, CK #### [facility] [address] [address] [address] Manfred Brooks CK.MB [Mass/Vol] 1.43 ng/mL Normal <=3.60 [facility] Comment on above: Performed By: #### B MP, HSTROPN, CK #### [facility] [address] [place] [address] Dr. Manfred Brooks HSTROP 19.6 pg/mL Normal 4.0-51.3 [facility] Comment on above: Result Comment: CUT- OFF POINTS HAVE BEEN ESTABLISHED BASED ON THE FOURTH UNIVERSAL DEFINITIONS OF MYOCARDIAL INFARCTION. THE UPPER REFERENCE LIMIT (URL) OF TROPONIN, DEFINED THE 99TH PERCENTILE OF cTnI DISTRIBUTION IN A REFERENCE POPULATION, HAS BEEN CONFIRMED THE DECISION THRESHOLD FOR [place] DIAGNOSIS. Performed By: #### B MP, HSTROPN, CK #### [facility] [address] [place] [address] Dr. Manfred Brooks MAHOGANY 71 ng/mL Normal 9-82 [facility] Comment on above: Performed By: #### B MP, HSTROPN, CK #### [facility] [address] [address] [address] Manfred Brooks CBC AUTO DIFFon 05-16-2022 BASO # 0.1 103/ul Normal 0.0-0.1 [facility] Comment on above: Performed By: #### B MANN HSTROPN, CK #### [facility] [address] [place] [address] Dr. Manfred Brooks Basophils/100 WBC (Bld) 1.4 % Normal 0.2-2.0 [facility] Comment on above: Performed By: #### B MANN HSTROPN, CK #### [facility] [address] [place] [address] Dr. Manfred Brooks EO # 0.1 103/ul Normal 0.0-0.7 [facility] Comment on above: Performed By: #### B MANN HSTROPN, CK #### [facility] [address] [place] [address] Dr. Manfred Brooks Eosinophils/100 WBC (Bld) 2.3 % Normal 0.9-7.0 [facility] Comment on above: Performed By: #### B MANN HSTROPN, CK #### [facility] [address] [place] [address] Dr. Manfred Brooks Erythrocyte distribution width (RBC) [Ratio] 14.4 % Normal 11.0-15.0 [facility] Comment on above: Performed By: #### B MANN HSTROPN, CK #### [facility] [address] [place] [address] Dr. Manfred Brooks Hematocrit (Bld) [Volume fraction] 38.1 % Normal 36.0-48.0 [facility] Comment on above: Performed By: #### B MANN HSTROPN, CK #### [facility] [address] [place] [address] Dr. Manfred Brooks Hemoglobin (Bld) [Mass/Vol] 12.1 g/dL Normal 12.0-16.0 [facility] Comment on above: Performed By: #### B MANN HSTROPN, CK #### [facility] [address] [place] [address] Dr. Manfred Brooks IG # 0.01 10e3/ul Normal 0.00-0.03 [facility] Comment on above: Performed By: #### B MP, HSTROPN, CK #### [facility] [address] [place] [address] Dr. Manfred Brooks IG % 0.2 % Normal 0.0-0.5 [facility] Comment on above: Performed By: #### B MP, HSTROPN, CK #### [facility] [address] [place] [address] Dr. Manfred Brooks LYMPH # 1.0 103/ul Critically low 1.2-3.8 [facility] Comment on above: Performed By: #### B MP, HSTROPN, CK #### [facility] [address] [place] [address] Dr. Manfred Brooks Lymphocytes/100 WBC (Bld) 22.4 % Normal 20.5-60.0 [facility] Comment on above: Performed By: #### B MP, HSTROPN, CK #### [facility] [address] [place] [address] Dr. Manfred Brooks MANUAL DIFF REQ NO Normal [facility] Comment on above: Performed By: #### B MP, HSTROPN, CK #### [facility] [address] [place] [address] Dr. Manfred Brooks MCH (RBC) [Entitic mass] 28.9 pg Normal 26.7-34.0 [facility] Comment on above: Performed By: #### B MP, HSTROPN, CK #### [facility] [address] [place] [address] Dr. Manfred Brooks MCHC (RBC) [Mass/Vol] 31.8 g/dL Normal 29.9-35.2 [facility] Comment on above: Performed By: #### B MP, HSTROPN, CK #### [facility] [address] [place] [address] Dr. Manfred Brooks MCV (RBC) [Entitic vol] 90.9 fL Normal 81.0-99.0 [facility] Comment on above: Performed By: #### B MP, HSTROPN, CK #### [facility] [address] [address] [address] Manfred Brooks MONO # 0.5 103/ul Normal 0.3-0.8 [facility] Comment on above: Performed By: #### B MP, HSTROPN, CK #### [facility] [address] [place] [address] Dr. Manfred Brooks Monocytes/100 WBC (Bld) 10.2 % Normal 1.7-12.0 [facility] Comment on above: Performed By: #### B MP, HSTROPN, CK #### [facility] [address] [place] [address] Dr. Manfred Brooks NEUT # 2.8 103/ul Normal 1.4-6.5 [facility] Comment on above: Performed By: #### B MP, HSTROPN, CK #### [facility] [address] [place] [address] Dr. Manfred Brooks Neutrophils/100 WBC (Bld) 63.5 % Normal 43.0-75.0 [facility] Comment on above: Performed By: #### B MP, HSTROPN, CK #### [facility] [address] [address] [address] Manfred Brooks Platelet mean volume (Bld) [Entitic vol] 10.1 fL Normal 9.5-13.5 [facility] Comment on above: Performed By: #### B MP, HSTROPN, CK #### [facility] [address] [place] [address] Dr. Manfred Brooks PLT 268 103/ul Normal 150-450 [facility] Comment on above: Performed By: #### B MP, HSTROPN, CK #### [facility] [address] [address] [address] Manfred Brooks RBC 4.19 106/ul Critically low 4.20-5.40 [facility] [place] Comment on above: Performed By: #### B MP, HSTROPN, CK #### [facility] [address] [address] [address] Manfred Brooks WBC 4.4 103/ul Normal 4.0-11.0 [facility] Comment on above: Performed By: #### B , HSTROPJim, #### [facility] [address] [address] [address] STROKE HEAD WOon 05-16-[address] STROKE HEAD WO EXAMINATION: CT STRO KE HEAD WO HISTORY: Headache COMPARISON: None. TECHNIQUE: CT examination of the head without IV contrast. Dose reduction techniques were achieved by using automated exposure control and/or adjustment of mA and/or kV according to patient size and/or use of iterative reconstruction technique. FINDINGS: The ventricles, sulci, and remaining CSF containing spaces maintain age-appropriate volume and symmetry. No herniation or hydrocephalus. The brizuela matter/white matter differentiation is maintained throughout. No CT evidence of contemporary infarction. No acute intracranial hemorrhage or parenchymal mass. The calvarium and skull base are intact. Atherosclerotic vascular calcifications. The pneumatized portions of the skull are clear. IMPRESSION: 1. No acute intracranial abnormality. Results were called by Dr. Chucky Taylor MD to emergency department At 05/16/2022 1201 EDT. Electronically authenticated by: MCKINLEY TAYLOR Date: 2022-05-16 12:01 Normal [facility] CTA NECK WO W CONon 05-16-20 22 CTA NECK WO W CON EXAMINATION: CTA NEC K WO W CON, CTA HEAD WO W CON HISTORY: Headache COMPARISON: CTA neck 04/24/2020 TECHNIQUE: Axial, Coronal, and Sagittal CT images without and with IV contrast. Multi-planar/3-D imaging to optimize visualization of vascular anatomy. Percent stenosis is based on NASCET criteria. Dose reduction techniques were achieved by using automated exposure control and/or adjustment of mA and/or kV according to patient size and/or use of iterative reconstruction technique. FINDINGS: HEAD: VASCULATURE: Normal. No significant stenosis. No visible aneurysm or vascular malformation. NECK: RIGHT INTERNAL CAROTID: Moderate atherosclerotic narrowing of carotid bulb; proximal 60%. EXTERNAL CAROTID: No hemodynamically significant stenosis or dissection. COMMON CAROTID: No hemodynamically significant stenosis or dissection. VERTEBRAL: No hemodynamically significant stenosis or dissection. LEFT INTERNAL CAROTID: Mild atherosclerotic narrowing of carotid bulb. EXTERNAL CAROTID: No hemodynamically significant stenosis or dissection. COMMON CAROTID: No hemodynamically significant stenosis or dissection. VERTEBRAL: No hemodynamically significant stenosis or dissection. OTHER: Multilevel marked degenerative disc disease resulting in moderate marked central canal and foramen narrowing. IMPRESSION: 1. Normal CT angiography of the head. 2. Moderate or slightly greater atherosclerotic narrowing of the right carotid bulb (approximately 60% area reduction), slightly progressed since prior study. 3. Mild atherosclerotic narrowing of left carotid bulb. 4. Multilevel marked degenerative disc disease resulting in central canal or foraminal narrowing. Electronically authenticated by: ALLY MCKEON Date: 2022-05-16 13:32 Normal [facility] CULTURE URINEon 05-16-2022 CULTURE URINE Culture Observations : LIGHT GROWTH OF MIXED GENITAL BETO. NO POTENTIAL PATHOGENS SEEN. Normal [facility] Comment on above: Performed By: #### B MP, HSTROPN, CK #### [facility] [address] [address] [address] Manfred Brooks Covid-19 PCR ([facility])on SARS-CoV-2 (COVID-19) RNA DAMIR+probe Ql (Unsp spec) Not detected Normal NOT DETECTED [facility] Comment on above: Result Comment: When diagnostic testing is negative, the possibility of a false negative should be considered in the context of a patient's recent exposures and the presence of clinical signs and symptoms consistent with SARS-CoV-2. This test is not yet approved or cleared by the [place] FDA. When there are no FDA-approved or cleared tests available, and other criteria are met, FDA can make tests available under an emergency access mechanism called an Emergency Use Authorization (EUA). The EUA for this test is supported by the [employer] of Health and Human Service's declaration that circumstances exist to justify the emergency use of in vitro diagnostics for the detection and/or diagnosis of the virus that causes COVID-19. This EUA will remain in effect for the duration of the COVID-19 declaration justifying emergency of IVDs, unless it is terminated or revoked by the FDA (after which the test may no longer be used). Performed By: #### C VDTBH #### [facility] [address] [place], [place] [address] Dr. Manfred Brooks DIGOXINon 05-16-2022 DIG 2.3 ng/mL Critically high 0.9-2.0 [facility] [place] Comment on above: Result Comment: repe ated Performed By: #### B MP, HSTROPN, CK #### [facility] [address] [place] [address] Dr. Manfred Brooks ER URINE PROFILEon 2 Bilirubin Ql (U) Negative Normal NEGATIVE [facility] Comment on above: Performed By: #### Nikolas HOGAN, UMICRO #### [facility] [address] [place] [address] Dr. Manfred Brooks Clarity (U) CLEAR Normal CLEAR [facility] Comment on above: Performed By: #### Nikolas HOGAN, UMICRO #### [facility] [address] [place] [address] Dr. Manfred Brooks Color (U) LT. YELLOW Normal YELLOW [facility] Comment on above: Performed By: #### Nikolas HOGAN UMICRO #### [facility] [address] [place] [address] Dr. Manfred JOHN A micrscopic examination will be performed if indicated. Normal [facility] Comment on above: Performed By: #### Nikolas HOGAN UMICRO #### [facility] [address] [place] [address] Dr. Manfred Brooks Glucose Ql (U) Negative Normal NEGATIVE [facility] Comment on above: Performed By: #### Nikolas HOGAN UMICRO #### [facility] [address] [place] [address] Dr. Manfred Brooks Hemoglobin Ql (U) Negative Normal NEGATIVE [facility] Comment on above: Performed By: #### Nikolas HOGAN UMICRO #### [facility] [address] [place] [address] Dr. Manfred Brooks Ketones Ql (U) Negative Normal NEGATIVE [facility] Comment on above: Performed By: #### Nikolas HOGAN UMICRO #### [facility] [address] [place] [address] Dr. Manfred Brooks LEUKOCYTES MODERATE Abnormal NEGATIVE [facility] Comment on above: Performed By: #### Nikolas HOGAN UMICRO #### [facility] [address] [place] [address] Dr. Manfred Brooks Nitrite Ql (U) Negative Normal NEGATIVE [facility] Comment on above: Performed By: #### Nikolas HOGAN UMICRO #### [facility] [address] [place] [address] Dr. Manfred Brooks pH (U) 6.5 [pH] Normal 5-9 [facility] Comment on above: Performed By: #### Nikolas HOGAN UMICRO #### [facility] [address] [place] [address] Dr. Manfred Brooks SPEC GRAVITY <=1.005 Abnormal 1.005-<=1.025 [facility] Comment on above: Performed By: #### Nikolas HOGAN UMICRO #### [facility] [address] [place] [address] Dr. Manfred Brooks UA PROTEIN Negative Normal NEGATIVE/ TRACE [facility] Comment on above: Performed By: #### Nikolas HOGAN UMICRO #### [facility] [address] [place] [address] Dr. Manfred Brooks UR MICRO IND INDICATED Normal [facility] Comment on above: Performed By: #### Nikolas HOGAN UMICRO #### [facility] [address] [place] [address] Dr. Manfred Brooks Urobilinogen Qn (U) 0.2 {Antionette'U}/dL Normal 0.2 - 1. 0 [facility] Comment on above: Performed By: #### Nikolas HOGAN UMICRO #### [facility] [address] [place] [address] Dr. Manfred Brooks POINT OF CARE GLUCOSEon Glucose [Mass/Vol] 109 mg/dL Critically high 74-106 T [facility] Comment on above: Performed By: #### P OCGLUC #### [facility] [address] [place] [address] Dr. Manfred Brooks PROF 14(COMP METB)on Albumin [Mass/Vol] 3.9 g/dL Normal 3.4-5.0 [facility] Comment on above: Performed By: #### B MP, HSTROPN, CK #### [facility] [address] [address] [address] Manfred Brooks Albumin/Globulin [Mass ratio] 1.3 {ratio} Normal [facility] Comment on above: Performed By: #### B MP, HSTROPN, CK #### [facility] [address] [address] [address] Manfred Brooks ALP [Catalytic activity/Vol] 58 U/L Normal 46-116 [facility] Comment on above: Performed By: #### B MP, HSTROPN, CK #### [facility] [address] [address] [address] Manfred Brooks ALT [Catalytic activity/Vol] 28 U/L Normal 14-59 [facility] Comment on above: Performed By: #### B MP, HSTROPN, CK #### [facility] [address] [place] [address] Dr. Manfred Brooks Anion gap [Moles/Vol] 11.4 mmol/L Normal [facility] Comment on above: Performed By: #### B MP, HSTROPN, CK #### [facility] [address] [address] [address] Manfred Brooks AST [Catalytic activity/Vol] 18 U/L Normal 15-37 [facility] Comment on above: Performed By: #### B MP, HSTROPN, CK #### [facility] [address] [address] [address] Manfred Brooks Bilirubin [Mass/Vol] 0.6 mg/dL Normal 0.2-1.0 [facility] Comment on above: Performed By: #### B MP, HSTROPN, CK #### [facility] [address] [address] [address] Manfred Brooks Calcium [Mass/Vol] 8.8 mg/dL Normal 8.5-10.1 [facility] Comment on above: Performed By: #### B MP, HSTROPN, CK #### [facility] [address] [address] [address] Manfred Brooks Chloride [Moles/Vol] 106 mmol/L Normal 98-107 [facility] Comment on above: Performed By: #### B MANN HSTROPN, CK #### [facility] [address] [place] [address] Dr. Manfred Brooks CO2 [Moles/Vol] 31.3 mmol/L Normal 21.0-32.0 [facility] Comment on above: Performed By: #### B MP HSTROPN, CK #### [facility] [address] [place] [address] Dr. Manfred Brooks Creatinine [Mass/Vol] 0.76 mg/dL Normal 0.55-1.02 [facility] Comment on above: Performed By: #### B MANN HSTROPN, CK #### [facility] [address] [place] [address] Dr. Manfred Brooks EGFR-AF URUGUAYAN >60 Normal >=60 [facility] Comment on above: Performed By: #### B MANN HSTROPN, CK #### [facility] [address] [place] [address] Dr. Manfred Brooks EGFR-NON AF URUGUAYAN >60 Normal >=60 [facility] Comment on above: Performed By: #### B MANN HSTROPN, CK #### [facility] [address] [place] [address] Dr. Manfred Brooks Globulin (S) [Mass/Vol] 2.9 g/dL Normal [facility] Comment on above: Performed By: #### B MANN HSTROPN, CK #### [facility] [address] [place] [address] Dr. Manfred Brooks Glucose [Mass/Vol] 122 mg/dL Critically high 74-106 [facility] Comment on above: Performed By: #### B MANN HSTROPN, CK #### [facility] [address] [place] [address] Dr. Manfred Brooks Potassium [Moles/Vol] 3.7 mmol/L Normal 3.5-5.1 [facility] Comment on above: Performed By: #### B MANN, HSTROPN, CK #### [facility] [address] [place] [address] Dr. Manfred Brooks Protein [Mass/Vol] 6.8 g/dL Normal 6.4-8.2 [facility] Comment on above: Performed By: #### B MP, HSTROPN, CK #### [facility] [address] [place] [address] Dr. Manfred Brooks Sodium [Moles/Vol] 145 mmol/L Normal 136-145 [facility] Comment on above: Performed By: #### B MP, HSTROPN, CK #### [facility] [address] [place] [address] Dr. Manfred Brooks Urea nitrogen [Mass/Vol] 18.0 mg/dL Normal 7.0-18.0 [facility] Comment on above: Performed By: #### B MANN HSTROPJim, CK #### [facility] [address] [place] [address] Dr. Manfred Brooks Urea nitrogen/Creatinine [Mass ratio] 23.7 mg/mg Normal [facility] Comment on above: Performed By: #### B MANN, HSTROPN, CK #### [facility] [address] [place] [address] Dr. Manfred Brooks PROTIMEon 05-16-2022 INR Coag (PPP) [Relative time] 1.08 {INR} Normal [facility] Comment on above: Performed By: #### MILTON BENOIT #### [facility] [address] [place] [address] Dr. Manfred Brooks INR GUIDELINES SEE BELOW Normal [facility] Comment on above: Result Comment: JUSTYN RED INR: 2.0 - 3.0 CONDITIONS NOT LISTED BELOW 2.5 - 3.5 FOR PROSTHETIC HEART VALVE REPLACEMENT 2.5 - 3.5 RECURRENT THROMBOSIS Performed By: #### MILTON BENOIT #### [facility] [address] [place] [address] Dr. Manfred Brooks PT Coag (PPP) [Time] 11.6 s Normal 9.0-11.6 [facility] Comment on above: Performed By: #### Nikolas HOGAN UMICRO #### [facility] [address] [place] [address] Dr. Manfred Brooks PTTon 05-16-2022 aPTT Coag (Bld) [Time] 28.1 s Normal 22.3-36.2 [facility] Comment on above: Performed By: #### E RUR, UMICRO #### [facility] [address] [place] [address] Dr. Manfred Brooks TSHon 05-16-2022 TSH 0.320 uIU/mL Critically low 0.358-3.740 [facility] Comment on above: Performed By: #### B MP, HSTROPN, CK #### [facility] [address] [place] [address] Dr. Manfred Brooks URINE MICROSCOPIC ONLYon BACTERIA TRACE Abnormal NONE SEEN [facility] Comment on above: Performed By: #### E RUR UMICRO #### [facility] [address] [place] [address] Dr. Manfred Brooks Bacteria identified Cx Nom (U) INDICATED Normal [facility] Comment on above: Performed By: #### E SAMIRA, UMICRO #### [facility] [address] [place] [address] Dr. Manfred Brooks CAST NONE SEEN Normal NONE SEEN [facility] Comment on above: Performed By: #### E RUR, UMICRO #### [facility] [address] [place] [address] Dr. Manfred Brooks Crystals LM Nom (Urine sed) NONE SEEN Normal NONE SEEN [facility] Comment on above: Performed By: #### E RUR, UMICRO #### [facility] [address] [place] [address] Dr. Manfred Brooks Epithelial cells LM Ql (Urine sed) MODERATE Abnormal NONE SEEN /RARE [facility] Comment on above: Performed By: #### E RUR, UMICRO #### [facility] [address] [place] [address] Dr. Manfred Brooks MUCOUS NONE SEEN Normal NONE SEEN [facility] Comment on above: Performed By: #### MILTON BENOIT #### [facility] [address] [place] [address] Dr. Manfred Brooks RBC NONE SEEN Abnormal 0-2 [facility] Comment on above: Performed By: #### MILTON BENOIT #### [facility] [address] [place] [address] Dr. Manfred Brooks WBC 10-20 Abnormal NONE SEEN [facility] Comment on above: Performed By: #### ANU BENOITRO #### [facility] [address] [place] [address] Dr. Manfred Brooks XR CHEST 1 Von 05-16-2022 XR CHEST 1 V EXAM: XR CHEST 1 V HISTORY: . Headache . COMPARISON: 04/20/2022 TECHNIQUE: AP portable upright view of the chest FINDINGS: Heart and vascularity are unremarkable. Lungs are expanded and free of focal infiltrates. There is a small area right leg atelectasis versus scarring in the left cost phrenic angle. Atherosclerotic changes of the thoracic aorta are noted. EKG leads overlie the chest. IMPRESSION: Small linear area of platelike atelectasis versus scarring in the left cost phrenic angle. Remainder lung weir are unremarkable. Electronically authenticated by: ALEJANDRO BLACKMAN Date: 2022-05-16 12:58 Normal [facility] T3, TOTAL (TRIIODOTHYRONINE) on 04-22-2022 T3, TOTAL 85 ng/dL Normal 71-180 [facility] Comment on above: Performed By: #### C VDTBH #### [facility] [address] [place] [address] Dr. Manfred Brooks BNPon 04-21-2022 Natriuretic peptide B (Bld) [Mass/Vol] 486.0 pg/mL Normal <=1,800.0 [facility] Comment on above: Performed By: #### B CABLE WORKER HELPER, CMP #### [facility] [address] [place] [address] Dr. Manfred Brooks CBC AUTO DIFFon 04-21-2022 BASO # 0.1 103/ul Normal 0.0-0.1 [facility] Comment on above: Performed By: #### E MILTON HOGAN #### [facility] [address] [place] [address] Dr. Manfred Brooks Basophils/100 WBC (Bld) 1.0 % Normal 0.2-2.0 [facility] Comment on above: Performed By: #### Nikolas HOGAN UMICRO #### [facility] [address] [place] [address] Dr. Manfred Brooks EO # 0.2 103/ul Normal 0.0-0.7 [facility] Comment on above: Performed By: #### SUBHASH BENOITICRO #### [facility] [address] [place] [address] Dr. Manfred Brooks Eosinophils/100 WBC (Bld) 2.7 % Normal 0.9-7.0 [facility] Comment on above: Performed By: #### ANU BENOITRO #### [facility] [address] [place] [address] Dr. Manfred Brooks Erythrocyte distribution width (RBC) [Ratio] 14.2 % Normal 11.0-15.0 [facility] Comment on above: Performed By: #### ANU BENOITRO #### [facility] [address] [place] [address] Dr. Manfred Brooks Hematocrit (Bld) [Volume fraction] 38.7 % Normal 36.0-48.0 [facility] Comment on above: Performed By: #### ANU BENOITRO #### [facility] [address] [place] [address] Dr. Manfred Brooks Hemoglobin (Bld) [Mass/Vol] 12.1 g/dL Normal 12.0-16.0 [facility] Comment on above: Performed By: #### SUBHASH BENOITICRO #### [facility] [address] [place] [address] Dr. Manfred Brooks IG # 0.02 10e3/ul Normal 0.00-0.03 [facility] Comment on above: Performed By: #### ANU BENOITRO #### [facility] [address] [place] [address] Dr. Manfred Brooks IG % 0.3 % Normal 0.0-0.5 [facility] Comment on above: Performed By: #### MILTON BENOIT #### [facility] [address] [place] [address] Dr. Manfred Brooks LYMPH # 2.6 103/ul Normal 1.2-3.8 [facility] Comment on above: Performed By: #### ANU BENOITRO #### [facility] [address] [place] [address] Dr. Manfred Brooks Lymphocytes/100 WBC (Bld) 36.7 % Normal 20.5-60.0 [facility] Comment on above: Performed By: #### MILTON BENOIT #### [facility] [address] [place] [address] Dr. Manfred Brooks MANUAL DIFF REQ NO Normal [facility] Comment on above: Performed By: #### MILTON BENOIT #### [facility] [address] [place] [address] Dr. Manfred Brooks MCH (RBC) [Entitic mass] 29.2 pg Normal 26.7-34.0 [facility] Comment on above: Performed By: #### MILTON BENOIT #### [facility] [address] [place] [address] Dr. Manfred Brooks MCHC (RBC) [Mass/Vol] 31.3 g/dL Normal 29.9-35.2 [facility] Comment on above: Performed By: #### ANU BENOITRO #### [facility] [address] [place] [address] Dr. Manfred Brooks MCV (RBC) [Entitic vol] 93.5 fL Normal 81.0-99.0 [facility] Comment on above: Performed By: #### ANU BENOITRO #### [facility] [address] [place] [address] Dr. Manfred Brooks MONO # 0.7 103/ul Normal 0.3-0.8 [facility] Comment on above: Performed By: #### MILTON BENOIT #### [facility] [address] [place] [address] Dr. Manfred Brooks Monocytes/100 WBC (Bld) 9.5 % Normal 1.7-12.0 [facility] Comment on above: Performed By: #### Nikolas HOGAN UMICRO #### [facility] [address] [place] [address] Dr. Manfred Brooks NEUT # 3.5 103/ul Normal 1.4-6.5 [facility] Comment on above: Performed By: #### Nikolas HOGAN UMICRO #### [facility] [address] [place] [address] Dr. Manfred Brooks Neutrophils/100 WBC (Bld) 49.8 % Normal 43.0-75.0 [facility] Comment on above: Performed By: #### Nikolas HOGAN UMICRO #### [facility] [address] [place] [address] Dr. Manfred Brooks Platelet mean volume (Bld) [Entitic vol] 10.5 fL Normal 9.5-13.5 [facility] Comment on above: Performed By: #### Nikolas HOGAN UMICRO #### [facility] [address] [place] [address] Dr. Manfred Brooks PLT 286 103/ul Normal 150-450 [facility] Comment on above: Performed By: #### Nikolas HOGAN UMICRO #### [facility] [address] [place] [address] Dr. Manfred Brooks RBC 4.14 106/ul Critically low 4.20-5.40 [facility] Comment on above: Performed By: #### Nikolas HOGAN UMICRO #### [facility] [address] [place] [address] Dr. Manfred Brooks WBC 7.0 103/ul Normal 4.0-11.0 [facility] Comment on above: Performed By: #### Nikolas HOGAN, UMICRO #### [facility] [address] [place] [address] Dr. Manfred Brooks DIGOXINon 04-21-2022 DIG <0.2 Critically low 0.9-2.0 [facility] Comment on above: Performed By: #### B MP, HSTROPN, CK #### [facility] [address] [address] [address] Manfred Brooks ECHOCARDIO M/2D COMPLETEon 0 04-21-2022 ECHOCARDIO M/2D COMPLETE Patient: BETTY CAMARENA Exam Date: 04/21/2022 : 1940 Gender:F Ordering : DR CAM BATES . Admission #: [id number] Family : DR GLORIA SALCEDO . Order #: [id number] CLICK HERE TO VIEW EXAM ECHOCARDIOGRAM REPORT PROCEDURE: CARDIO PULMONARY ECHOCARDIO M/2D COMP INDICATIONS: Afib w/RVR new onset-resolved COMPARISON: None. DESCRIPTION: COMPLETE ECHOCARDIOGRAM Real-time transthoracic echocardiography with 2D, M-mode, spectral and color flow Doppler performed. QUALITY: Technical quality was good. LEFT VENTRICLE: Normal chamber size. Mild concentric left ventricular hypertrophy. Global left ventricular systolic function is normal. LV EF: Visual estimation of left ventricular ejection fraction is 60%. DIASTOLIC: Diastolic function is indeterminate. ATRIAL SEPTUM: LEFT ATRIUM: Normal chamber size. RIGHT ATRIUM: Normal chamber size. RIGHT VENTRICLE: Normal chamber size. Normal right ventricular systolic function. TRICUSPID VALVE: Normal mobility and thickness. No stenosis with trivial regurgitation. Unable to assess right-sided pressures due to lack of measurable tricuspid regurgitation. MITRAL VALVE: Normal mobility and thickness. No mitral valve prolapse. No evidence of mitral valve stenosis. Mild mitral annular calcification. Mild mitral regurgitation. AORTIC VALVE: Normal trileaflet appearance. Thickened aortic valve. Normal leaflet mobility. No evidence of aortic valve stenosis. No aortic regurgitation. AORTIC ROOT: Normal diameter and appearance. PULMONIC VALVE: Normal thickness and mobility. No stenosis. Trivial regurgitation. PERICARDIUM: No evidence of pericardial effusion. IVC: Collapses with inspirations. normal size PLEURA: CONCLUSION: 1. Mild concentric left ventricular hypertrophy. Normal left ventricular systolic function. LVEF is 60%. 2. Normal right ventricular size and function. 3. No significant valvular dysfunction. Dictated by: Denisa Alejandre M.D. on 04/21/2022 at 19:16 Approved by: Denisa Alejandre M.D. on 04/21/2022 at 19:20 Normal [facility] PROF 14(COMP METB)on 022 Albumin [Mass/Vol] 3.4 g/dL Normal 3.4-5.0 [facility] Comment on above: Performed By: #### B CABLE WORKER HELPER, CMP #### [facility] [address] [address] [address] Manfred Brooks Albumin/Globulin [Mass ratio] 1.2 {ratio} Normal [facility] Comment on above: Performed By: #### B CABLE WORKER HELPER, CMP #### [facility] [address] [address] [address] Manfred Brooks ALP [Catalytic activity/Vol] 62 U/L Normal 46-116 [facility] Comment on above: Performed By: #### B CABLE WORKER HELPER, CMP #### [facility] [address] [place] [address] Dr. Manfred Brooks ALT [Catalytic activity/Vol] 24 U/L Normal 14-59 [facility] Comment on above: Performed By: #### B CABLE WORKER HELPER, CMP #### [facility] [address] [address] [address] Manfred Brooks Anion gap [Moles/Vol] 10.4 mmol/L Normal [facility] Comment on above: Performed By: #### B CABLE WORKER HELPER, CMP #### [facility] [address] [address] [address] Manfred Brooks AST [Catalytic activity/Vol] 9 U/L Critically low 15-37 [facility] Comment on above: Performed By: #### B CABLE WORKER HELPER, CMP #### [facility] [address] [address] [address] Manfred Brooks Bilirubin [Mass/Vol] 0.3 mg/dL Normal 0.2-1.0 [facility] Comment on above: Performed By: #### B CABLE WORKER HELPER, CMP #### [facility] [address] [address] [address] Manfred Brooks Calcium [Mass/Vol] 8.5 mg/dL Normal 8.5-10.1 [facility] Comment on above: Performed By: #### B CABLE WORKER HELPER, CMP #### [facility] [address] [address] [address] Manfred Brooks Chloride [Moles/Vol] 109 mmol/L Critically high 98-107 [facility] Comment on above: Performed By: #### B CABLE WORKER HELPER, CMP #### [facility] [address] [place] [address] Dr. Manfred Brooks CO2 [Moles/Vol] 28.5 mmol/L Normal 21.0-32.0 [facility] Comment on above: Performed By: #### B CABLE WORKER HELPER, CMP #### [facility] [address] [place] [address] Dr. Manfred Brooks Creatinine [Mass/Vol] 0.83 mg/dL Normal 0.55-1.02 [facility] Comment on above: Performed By: #### B CABLE WORKER HELPER, CMP #### [facility] [address] [place] [address] Dr. Manfred Brooks EGFR-AF URUGUAYAN >60 Normal >=60 [facility] Comment on above: Performed By: #### B CABLE WORKER HELPER, CMP #### [facility] [address] [place] [address] Dr. Manfred Brooks EGFR-NON AF URUGUAYAN >60 Normal >=60 [facility] Comment on above: Performed By: #### B CABLE WORKER HELPER, CMP #### [facility] [address] [place] [address] Dr. Manfred Brooks Globulin (S) [Mass/Vol] 2.8 g/dL Normal [facility] Comment on above: Performed By: #### B CABLE WORKER HELPER, CMP #### [facility] [address] [place] [address] Dr. Manfred Brooks Glucose [Mass/Vol] 107 mg/dL Critically high 74-106 [facility] Comment on above: Performed By: #### B CABLE WORKER HELPER, CMP #### [facility] [address] [place] [address] Dr. Manfred Brooks Potassium [Moles/Vol] 3.9 mmol/L Normal 3.5-5.1 [facility] Comment on above: Performed By: #### B CABLE WORKER HELPER, CMP #### [facility] [address] [place] [address] Dr. Manfred Brooks Protein [Mass/Vol] 6.2 g/dL Critically low 6.4-8.2 [facility] Comment on above: Performed By: #### B CABLE WORKER HELPER, CMP #### [facility] [address] [place] [address] Dr. Manfred Brooks Sodium [Moles/Vol] 144 mmol/L Normal 136-145 [facility] Comment on above: Performed By: #### B CABLE WORKER HELPER, CMP #### [facility] [address] [place] [address] Dr. Manfred Brooks Urea nitrogen [Mass/Vol] 23.0 mg/dL Critically high 7.0-18.0 [facility] Comment on above: Performed By: #### B CABLE WORKER HELPER, CMP #### [facility] [address] [place] [address] Dr. Manfred Brooks Urea nitrogen/Creatinine [Mass ratio] 27.7 mg/mg Normal [facility] Comment on above: Performed By: #### B CABLE WORKER HELPER, CMP #### [facility] [address] [place] [address] Dr. Manfred Brooks BNPon 04-20-2022 Natriuretic peptide B (Bld) [Mass/Vol] 199.0 pg/mL Normal <=1,800.0 [facility] Comment on above: Performed By: #### ANU BENOITRO #### [facility] [address] [place] [address] Dr. Manfred Brooks CARDIAC TELMA 3-6on 2 CK [Catalytic activity/Vol] 55 U/L Normal 26-192 [facility] Comment on above: Performed By: #### Nikolas HOGAN UMICRO #### [facility] [address] [place] [address] Dr. Manfred Brooks CK.MB [Mass/Vol] 1.69 ng/mL Normal <=3.60 [facility] Comment on above: Performed By: #### Nikolas HOGAN UMICRO #### [facility] [address] [place] [address] Dr. Manfred Brooks HSTROP 37.5 pg/mL Normal 4.0-51.3 [facility] Comment on above: Result Comment: CUT- OFF POINTS HAVE BEEN ESTABLISHED BASED ON THE FOURTH UNIVERSAL DEFINITIONS OF MYOCARDIAL INFARCTION. THE UPPER REFERENCE LIMIT (URL) OF TROPONIN, DEFINED THE 99TH PERCENTILE OF cTnI DISTRIBUTION IN A REFERENCE POPULATION, HAS BEEN CONFIRMED THE DECISION THRESHOLD FOR [place] DIAGNOSIS. Performed By: #### E JAMILAR, UMICRO #### [facility] [address] [place] [address] Dr. Manfred Brooks CK [Catalytic activity/Vol] 54 U/L Normal 26-192 [facility] Comment on above: Performed By: #### E RUR, UMICRO #### [facility] [address] [place] [address] Dr. Manfred LE.MB [Mass/Vol] 1.12 ng/mL Normal <=3.60 [facility] Comment on above: Performed By: #### E RUR, UMICRO #### [facility] [address] [place] [address] Dr. Manfred Brooks HSTROP 27.5 pg/mL Normal 4.0-51.3 [facility] Comment on above: Result Comment: CUT- OFF POINTS HAVE BEEN ESTABLISHED BASED ON THE FOURTH UNIVERSAL DEFINITIONS OF MYOCARDIAL INFARCTION. THE UPPER REFERENCE LIMIT (URL) OF TROPONIN, DEFINED THE 99TH PERCENTILE OF cTnI DISTRIBUTION IN A REFERENCE POPULATION, HAS BEEN CONFIRMED THE DECISION THRESHOLD FOR NH DIAGNOSIS. Performed By: #### E JAMILAR, UMICRO #### [facility] [address] [place] [address] Dr. Manfred Brooks CARDIAC TELMA ADMITon 022 CK [Catalytic activity/Vol] 64 U/L Normal 26-192 [facility] Comment on above: Performed By: #### E RUR, UMICRO #### [facility] [address] [place] [address] Dr. Manfred LE.MB [Mass/Vol] 1.12 ng/mL Normal <=3.60 [facility] Comment on above: Performed By: #### E RUR, UMICRO #### [facility] [address] [place] [address] Dr. Manfred Brooks HSTROP 13.4 pg/mL Normal 4.0-51.3 [facility] Comment on above: Result Comment: CUT- OFF POINTS HAVE BEEN ESTABLISHED BASED ON THE FOURTH UNIVERSAL DEFINITIONS OF MYOCARDIAL INFARCTION. THE UPPER REFERENCE LIMIT (URL) OF TROPONIN, DEFINED THE 99TH PERCENTILE OF cTnI DISTRIBUTION IN A REFERENCE POPULATION, HAS BEEN CONFIRMED THE DECISION THRESHOLD FOR [place] DIAGNOSIS. Performed By: #### MILTON BENOIT #### [facility] [address] [place] [address] Dr. Manfred Brooks MAHOGANY 38 ng/mL Normal 9-82 [facility] Comment on above: Performed By: #### MILTON BENOIT #### [facility] [address] [place] [address] Dr. Manfred Brooks CBC AUTO DIFFon 04-20-2022 BASO # 0.1 103/ul Normal 0.0-0.1 [facility] Comment on above: Performed By: #### MILTON BENOIT #### [facility] [address] [place] [address] Dr. Manfred Brooks Basophils/100 WBC (Bld) 1.0 % Normal 0.2-2.0 [facility] Comment on above: Performed By: #### MILTON BENOIT #### [facility] [address] [place] [address] Dr. Manfred Brooks EO # 0.2 103/ul Normal 0.0-0.7 [facility] Comment on above: Performed By: #### MILTON BENOIT #### [facility] [address] [place] [address] Dr. Manfred Brooks Eosinophils/100 WBC (Bld) 1.8 % Normal 0.9-7.0 [facility] Comment on above: Performed By: #### MILTON BENOIT #### [facility] [address] [place] [address] Dr. Manfred Brooks Erythrocyte distribution width (RBC) [Ratio] 14.2 % Normal 11.0-15.0 [facility] Comment on above: Performed By: #### MILTON BENOIT #### [facility] [address] [place] [address] Dr. Manfred Brooks Hematocrit (Bld) [Volume fraction] 43.5 % Normal 36.0-48.0 [facility] Comment on above: Performed By: #### E RUR, UMICRO #### [facility] [address] [place] [address] Dr. Manfred Brooks Hemoglobin (Bld) [Mass/Vol] 13.9 g/dL Normal 12.0-16.0 [facility] Comment on above: Performed By: #### E RUR, UMICRO #### [facility] [address] [place] [address] Dr. Manfred Brooks IG # 0.03 10e3/ul Normal 0.00-0.03 [facility] Comment on above: Performed By: #### Nikolas HOGAN, UMICRO #### [facility] [address] [place] [address] Dr. Manfred Brooks IG % 0.3 % Normal 0.0-0.5 [facility] Comment on above: Performed By: #### Nikolas HOGAN, UMICRO #### [facility] [address] [place] [address] Dr. Manfred Brooks LYMPH # 2.6 103/ul Normal 1.2-3.8 [facility] Comment on above: Performed By: #### Nikolas HOGAN, UMICRO #### [facility] [address] [place] [address] Dr. Manfred Brooks Lymphocytes/100 WBC (Bld) 29.8 % Normal 20.5-60.0 [facility] Comment on above: Performed By: #### E RUR, UMICRO #### [facility] [address] [place] [address] Dr. Manfred Brooks MANUAL DIFF REQ NO Normal [facility] Comment on above: Performed By: #### E RUR, UMICRO #### [facility] [address] [place] [address] Dr. Manfred Brooks MCH (RBC) [Entitic mass] 29.7 pg Normal 26.7-34.0 [facility] Comment on above: Performed By: #### ANU BENOITRO #### [facility] [address] [place] [address] Dr. Manfred Brooks MCHC (RBC) [Mass/Vol] 32.0 g/dL Normal 29.9-35.2 [facility] Comment on above: Performed By: #### ANU BENOITRO #### [facility] [address] [place] [address] Dr. Manfred Brooks MCV (RBC) [Entitic vol] 92.9 fL Normal 81.0-99.0 [facility] Comment on above: Performed By: #### ANU BENOITRO #### [facility] [address] [place] [address] Dr. Manfred Brooks MONO # 0.8 103/ul Normal 0.3-0.8 [facility] Comment on above: Performed By: #### ANU BENOITRO #### [facility] [address] [place] [address] Dr. Manfred Brooks Monocytes/100 WBC (Bld) 9.6 % Normal 1.7-12.0 [facility] Comment on above: Performed By: #### ANU BENOITRO #### [facility] [address] [place] [address] Dr. Manfred Brooks NEUT # 5.0 103/ul Normal 1.4-6.5 [facility] Comment on above: Performed By: #### ANU BENOITRO #### [facility] [address] [place] [address] Dr. Manfred Brooks Neutrophils/100 WBC (Bld) 57.5 % Normal 43.0-75.0 [facility] Comment on above: Performed By: #### ANU BENOITRO #### [facility] [address] [place] [address] Dr. Manfred Brooks Platelet mean volume (Bld) [Entitic vol] 10.1 fL Normal 9.5-13.5 [facility] Comment on above: Performed By: #### ANU BENOITRO #### [facility] [address] [address] [address] Manfred Brooks PLT 354 103/ul Normal 150-450 [facility] Comment on above: Performed By: #### MILTON BENOIT #### [facility] [address] [address] [address] Manfred Brooks RBC 4.68 106/ul Normal 4.20-5.40 [facility] Comment on above: Performed By: #### MILTON BENOIT #### [facility] [address] [address] [address] Manfred Brooks WBC 8.8 103/ul Normal 4.0-11.0 [facility] Comment on above: Performed By: #### MILTON BENOIT #### [facility] [address] [place] [address] Dr. Manfred Brooks CULTURE URINEon 04-20-2022 CULTURE URINE Culture Observations : LIGHT GROWTH OF MIXED GENITAL BETO. NO POTENTIAL PATHOGENS SEEN. Normal [facility] Comment on above: Performed By: #### B MP, HSTROPN, CK #### [facility] [address] [address] [address] Manfred Brooks [facility] SARS-CoV-2 (COVID-19) RNA DAMIR+probe Ql (Unsp spec) Not detected Normal NOT DETECTED [facility] Comment on above: Result Comment: When diagnostic testing is negative, the possibility of a false negative should be considered in the context of a patient's recent exposures and the presence of clinical signs and symptoms consistent with SARS-CoV-2. This test is not yet approved or cleared by the [place] FDA. When there are no FDA-approved or cleared tests available, and other criteria are met, FDA can make tests available under an emergency access mechanism called an Emergency Use Authorization (EUA). The EUA for this test is supported by the [place] of Health and Human Service's declaration that circumstances exist to justify the emergency use of in vitro diagnostics for the detection and/or diagnosis of the virus that causes COVID-19. This EUA will remain in effect for the duration of the COVID-19 declaration justifying emergency of IVDs, unless it is terminated or revoked by the FDA (after which the test may no longer be used). Performed By: #### B JAMILAH DARNELL, REY #### [facility] [address] [place] [address] Dr. Manfred Brooks D-DIMERon 04-20-2022 D-DIMER 0.35 mg/L FEU Normal <=0.59 [facility] Comment on above: Performed By: #### MILTON BENOIT #### [facility] [address] [place] [address] Dr. Manfred Brooks D-DIMER COMMENTS SEE BELOW Normal [facility] Comment on above: Result Comment: Incr eases in D-Dimer concentration observed with thromboembolic events can be variable due to localization, size, and age of the thrombus. Therefore, a thromboembolic event cannot be diagnosed with certainty on the basis of the reference range. D-Dimers may also be elevated for a variety of disorders including: advanced age, , coronary disease, cancer, liver disease, infection, inflammation, hematoma, DIC, trauma, post-surgery, diabetes, thrombolytic or anticoagulant therapy, stress, and generalized hospitalization. Performed By: #### MILTON BENOIT #### [facility] [address] [place] [address] Dr. Manfred Brooks PROF CHEM 8 (BAS METB)on Anion gap [Moles/Vol] 14.1 mmol/L Normal [facility] Comment on above: Performed By: #### ANU BENOITRO #### [facility] [address] [place] [address] Dr. Manfred Brooks Calcium [Mass/Vol] 9.3 mg/dL Normal 8.5-10.1 [facility] Comment on above: Performed By: #### ANU BENOITRO #### [facility] [address] [place] [address] Dr. Mnafred Brooks Chloride [Moles/Vol] 107 mmol/L Normal 98-107 [facility] Comment on above: Performed By: #### MILTON BENOIT #### [facility] [address] [address] [address] Manfred Brooks CO2 [Moles/Vol] 27.8 mmol/L Normal 21.0-32.0 [facility] Comment on above: Performed By: #### ANU BENOITRO #### [facility] [address] [address] [address] Manfred Brooks Creatinine [Mass/Vol] 0.89 mg/dL Normal 0.55-1.02 [facility] Comment on above: Performed By: #### Nikolas HOGAN, ANURO #### [facility] [address] [address] [address] Manfred Brooks EGFR-AF URUGUAYAN >60 Normal >=60 [facility] Comment on above: Performed By: #### ANU BENOITRO #### [facility] [address] [place] [address] Dr. Manfred Brooks EGFR-NON AF URUGUAYAN >60 Normal >=60 [facility] Comment on above: Performed By: #### ANU BENOITRO #### [facility] [address] [address] [address] Manfred Brooks Glucose [Mass/Vol] 129 mg/dL Critically high 74-106 [facility] Comment on above: Performed By: #### ANU BENOITRO #### [facility] [address] [place] [address] Dr. Manfred Brooks Potassium [Moles/Vol] 3.9 mmol/L Normal 3.5-5.1 [facility] Comment on above: Performed By: #### ANU BENOITRO #### [facility] [address] [address] [address] Manfred Brooks Sodium [Moles/Vol] 145 mmol/L Normal 136-145 [facility] Comment on above: Performed By: #### ANU BENOITRO #### [facility] [address] [address] [address] Manfred Brooks Urea nitrogen [Mass/Vol] 28.0 mg/dL Critically high 7.0-18.0 [facility] Comment on above: Performed By: #### E MILTON HOGAN #### [facility] [address] [place] [address] Dr. Manfred Brooks Urea nitrogen/Creatinine [Mass ratio] 31.5 mg/mg Normal [facility] Comment on above: Performed By: #### E MILTON HOGAN #### [facility] [address] [place] [address] Dr. Manfred Brooks T4on 04-20-2022 T4 [Mass/Vol] 8.10 ug/dL Normal 4.80-13.90 [facility] Comment on above: Performed By: #### B CABLE WORKER HELPER, CMP #### [facility] [address] [place] [address] Dr. Manfred Broosk TSHon 04-20-2022 TSH 0.918 uIU/mL Normal 0.358-3.740 [facility] Comment on above: Performed By: #### B CABLE WORKER HELPER, CMP #### [facility] [address] [place] [address] Dr. Manfred Brooks UA RANDOM W/MICROSCOPICon BACTERIA TRACE Abnormal NONE SEEN [facility] Comment on above: Performed By: #### C VDTBH #### [facility] [address] [place] [address] Dr. Manfred Brooks Bilirubin Ql (U) Negative Normal NEGATIVE [facility] Comment on above: Performed By: #### C VDTBH #### [facility] [address] [place] [address] Dr. Manfred Brooks CAST SEEN Abnormal NONE SEEN [facility] Comment on above: Performed By: #### C VDTBH #### [facility] [address] [place] [address] Dr. Manfred Brooks Clarity (U) CLEAR Normal CLEAR [facility] Comment on above: Performed By: #### C VDTBH #### [facility] [address] [place] [address] Dr. Manfred Brooks Color (U) LT. YELLOW Normal YELLOW [facility] Comment on above: Performed By: #### C VDTBH #### [facility] [address] [address] [address] Manfred Brooks Crystals LM Nom (Urine sed) NONE SEEN Normal NONE SEEN [facility] Comment on above: Performed By: #### C VDTBH #### [facility] [address] [place] [address] Dr. Manfred Brooks Epithelial cells LM Ql (Urine sed) MODERATE Abnormal NONE SEEN /RARE [facility] Comment on above: Performed By: #### C VDTBH #### [facility] [address] [place] [address] Dr. Manfred Brooks Glucose Ql (U) Negative Normal NEGATIVE [facility] Comment on above: Performed By: #### C VDTBH #### [facility] [address] [place] [address] Dr. Manfred Brooks Hemoglobin Ql (U) Negative Normal NEGATIVE [facility] Comment on above: Performed By: #### C VDTBH #### [facility] [address] [place] [address] Dr. Manfred Brooks HYALINE CAST RARE Normal [facility] Comment on above: Performed By: #### C VDTBH #### [facility] [address] [place] [address] Dr. Manfred Brooks Ketones Ql (U) Negative Normal NEGATIVE [facility] Comment on above: Performed By: #### C VDTBH #### [facility] [address] [place] [address] Dr. Manfred Brooks LEUKOCYTES TRACE Abnormal NEGATIVE [facility] Comment on above: Performed By: #### C VDTBH #### [facility] [address] [place] [address] Dr. Manfred Brooks MUCOUS TRACE Abnormal NONE SEEN [facility] Comment on above: Performed By: #### C VDTBH #### [facility] [address] [place] [address] Dr. Manfred Brooks Nitrite Ql (U) Negative Normal NEGATIVE [facility] Comment on above: Performed By: #### C VDTBH #### [facility] [address] [place] [address] Dr. Manfred Brooks pH (U) 5.0 [pH] Normal 5-9 [facility] Comment on above: Performed By: #### C VDTBH #### [facility] [address] [address] [address] Manfred Brooks RBC NONE SEEN Abnormal 0-2 [facility] Comment on above: Performed By: #### C VDTBH #### [facility] [address] [address] [address] Manfred Brooks SPEC GRAVITY >=1.030 Abnormal 1.005-<=1.025 [facility] Comment on above: Performed By: #### C VDTBH #### [facility] [address] [address] [address] Manfred Brooks UA PROTEIN Negative Normal NEGATIVE/ TRACE [facility] Comment on above: Performed By: #### C VDTBH #### [facility] [address] [address] [address] Manfred Brooks Urobilinogen Qn (U) 0.2 {Antionette'U}/dL Normal 0.2 - 1. 0 [facility] Comment on above: Performed By: #### C VDTBH #### [facility] [address] [address] [address] Manfred Brooks WBC 2-5 Abnormal NONE SEEN [facility] Comment on above: Performed By: #### C VDTBH #### [facility] [address] [address] [address] Manfred Brooks XR CHEST 1 Von 04-20-2022 XR CHEST 1 V EXAM: XR CHEST 1 V INDICATION: Shortness of breath. Weakness, elevated blood pressure. COMPARISON: 06/12/2021 TECHNIQUE: Single frontal view of the chest FINDINGS: Normal cardiomediastinal contours. Clear lungs. No pleural effusion or pneumothorax. No acute osseous abnormality. IMPRESSION: No acute cardiopulmonary process. Electronically authenticated by: CHE JACOBS Date: 2022-04-20 07:57 Normal [facility] INSULINon 02-05-2022 Insulin 21.9 uIU/mL Normal 2.6-24.9 [facility] Comment on above: Performed By: #### C VDTBH #### [facility] [address] [place] [address] Dr. Manfred Brooks BNPon 02-04-2022 Natriuretic peptide B (Bld) [Mass/Vol] 197.0 pg/mL Normal <=1,800.0 [facility] Comment on above: Performed By: #### E MILTON HOGAN #### [facility] [address] [place] [address] Dr. Manfred Brooks CBC AUTO DIFFon 02-04-2022 BASO # 0.1 103/ul Normal 0.0-0.1 [facility] Comment on above: Performed By: #### C BC #### [facility] [address] [place] [address] Dr. Manfred Brooks Basophils/100 WBC (Bld) 1.2 % Normal 0.2-2.0 [facility] Comment on above: Performed By: #### C BC #### [facility] [address] [place] [address] Dr. Manfred Brooks EO # 0.1 103/ul Normal 0.0-0.7 [facility] Comment on above: Performed By: #### C BC #### [facility] [address] [place] [address] Dr. Manfred Brooks Eosinophils/100 WBC (Bld) 2.1 % Normal 0.9-7.0 [facility] Comment on above: Performed By: #### C BC #### [facility] [address] [place] [address] Dr. Manfred Brooks Erythrocyte distribution width (RBC) [Ratio] 14.5 % Normal 11.0-15.0 [facility] Comment on above: Performed By: #### C BC #### [facility] [address] [place] [address] Dr. Manfred Brooks Hematocrit (Bld) [Volume fraction] 42.4 % Normal 36.0-48.0 [facility] Comment on above: Performed By: #### C BC #### [facility] [address] [place] [address] Dr. Manfred Brooks Hemoglobin (Bld) [Mass/Vol] 13.4 g/dL Normal 12.0-16.0 [facility] Comment on above: Performed By: #### C BC #### [facility] [address] [place] [address] Dr. Manfred Brooks IG # 0.02 10e3/ul Normal 0.00-0.03 [facility] Comment on above: Performed By: #### C BC #### [facility] [address] [place] [address] Dr. Manfred Brooks IG % 0.3 % Normal 0.0-0.5 [facility] Comment on above: Performed By: #### C BC #### [facility] [address] [place] [address] Dr. Manfred Brooks LYMPH # 2.2 103/ul Normal 1.2-3.8 [facility] Comment on above: Performed By: #### C BC #### [facility] [address] [place] [address] Dr. Manfred Brooks Lymphocytes/100 WBC (Bld) 35.6 % Normal 20.5-60.0 [facility] Comment on above: Performed By: #### C BC #### [facility] [address] [place] [address] Dr. Manfred Brooks MANUAL DIFF REQ NO Normal [facility] Comment on above: Performed By: #### C BC #### [facility] [address] [place] [address] Dr. Manfred Brooks MCH (RBC) [Entitic mass] 29.6 pg Normal 26.7-34.0 [facility] Comment on above: Performed By: #### C BC #### [facility] [address] [place] [address] Dr. Manfred Brooks MCHC (RBC) [Mass/Vol] 31.6 g/dL Normal 29.9-35.2 [facility] Comment on above: Performed By: #### C BC #### [facility] [address] [place] [address] Dr. Manfred Brooks MCV (RBC) [Entitic vol] 93.8 fL Normal 81.0-99.0 [facility] Comment on above: Performed By: #### C BC #### [facility] [address] [place] [address] Dr. Manfred Brooks MONO # 0.6 103/ul Normal 0.3-0.8 [facility] Comment on above: Performed By: #### C BC #### [facility] [address] [place] [address] Dr. Manfred Brooks Monocytes/100 WBC (Bld) 10.4 % Normal 1.7-12.0 [facility] Comment on above: Performed By: #### C BC #### [facility] [address] [place] [address] Dr. Manfred Brooks NEUT # 3.1 103/ul Normal 1.4-6.5 [facility] Comment on above: Performed By: #### C BC #### [facility] [address] [place] [address] Dr. Manfred Brooks Neutrophils/100 WBC (Bld) 50.4 % Normal 43.0-75.0 [facility] Comment on above: Performed By: #### C BC #### [facility] [address] [place] [address] Dr. Manfred Brooks Platelet mean volume (Bld) [Entitic vol] 10.1 fL Normal 9.5-13.5 [facility] Comment on above: Performed By: #### C BC #### [facility] [address] [place] [address] Dr. Manfred Brooks PLT 310 103/ul Normal 150-450 [facility] Comment on above: Performed By: #### C BC #### [facility] [address] [place] [address] Dr. Manfred Brooks RBC 4.52 106/ul Normal 4.20-5.40 [facility] Comment on above: Performed By: #### C BC #### [facility] [address] [place] [address] Dr. Manfred Brooks WBC 6.1 103/ul Normal 4.0-11.0 [facility] Comment on above: Performed By: #### C BC #### [facility] [address] [address] [address] Manfred Brooks FREE THYROXINE INDEX T7on FTI 2.16 Normal [facility] Comment on above: Performed By: #### B JAMILAH DARNELL, CK #### [facility] [address] [place] [address] Dr. Manfred Brooks T3U 36.0 % Normal 23.5-40.5 [facility] Comment on above: Performed By: #### B JAMILAH DARNELL, CK #### [facility] [address] [place] [address] Dr. Manfred Brooks T4 [Mass/Vol] 6.00 ug/dL Normal 4.80-13.90 [facility] Comment on above: Performed By: #### B JAMILAH DARNELL, CK #### [facility] [address] [place] [address] Dr. Manfred Brooks GLYCOHEMOGLOBIN A1Con 2021 ADA RECOMMENDATION SEE BELOW Normal [facility] Comment on above: Result Comment: ADA RECOMMENDED LIMIT 4.0 - 6.0 ADA THERAPEUTIC TARGET < 7.0 ACTION SUGGESTED > 7.0 Performed By: #### B JAMILAH DARNELL, CK #### [facility] [address] [place] [address] Dr. Manfred Brooks Glucose [Mass/Vol] 114 mg/dL Normal [facility] Comment on above: Performed By: #### B JAMILAH DARNELL, CK #### [facility] [address] [place] [address] Dr. Manfred Brooks HbA1c (Bld) [Mass fraction] 5.6 % Normal 4.5-6.2 [facility] Comment on above: Performed By: #### B JMAILAH DARNELL, CK #### [facility] [address] [place] [address] Dr. Manfred Brooks IRONon 02-04-2022 Iron [Mass/Vol] 79.0 ug/dL Normal 50.0-170.0 [facility] Comment on above: Performed By: #### MILTON BENOIT #### [facility] [address] [place] [address] Dr. Manfred Brooks LIPID PROFILEon 02-04-2022 CHOL-HDL RATIO NORM SEE BELOW Normal [facility] Comment on above: Result Comment: 3.3 - 4.4 LOW RISK 4.4 - 7.1 AVERAGE RISK 7.1 - 11.0 MODERATE RISK >11.0 HIGH RISK Performed By: #### MILTON BENOIT #### [facility] [address] [place] [address] Dr. Manfred Brooks Cholesterol [Mass/Vol] 134 mg/dL Normal <=200 [facility] Comment on above: Performed By: #### MILTON BENOIT #### [facility] [address] [place] [address] Dr. Manfred Brooks Cholesterol in HDL [Mass/Vol] 41 mg/dL Normal 40-60 [facility] Comment on above: Performed By: #### MILTON BENOIT #### [facility] [address] [place] [address] Dr. Manfred Brooks Cholesterol in LDL [Mass/Vol] 62.0 mg/dL Normal [facility] Comment on above: Performed By: #### MILTON BENOIT #### [facility] [address] [place] [address] Dr. Manfred Brooks Cholesterol.total/Ch olesterol in HDL [Mass ratio] 3.3 {ratio} Normal [facility] Comment on above: Performed By: #### MILTON BENOIT #### [facility] [address] [place] [address] Dr. Manfred Brooks HDL NORMAL > or = 60 mg/dl - LO W CARDIOVASCULAR RISK <40 mg/dl - HIGH CARDIOVASCULAR RISK Normal [facility] Comment on above: Performed By: #### MILTON BENOIT #### [facility] [address] [place] [address] Dr. Manfred Brooks LDL CALC NORMAL SEE BELOW Normal [facility] Comment on above: Result Comment: <100 mg/dl OPTIMAL 100 - 129 mg/dl NEAR OR ABOVE OPTIMAL 130 - 159 mg/dl BORDERLINE HIGH 160 - 189 mg/dl HIGH >190 mg/dl VERY HIGH Performed By: #### E ANU HOGANRO #### [facility] [address] [address] [address] Manfred Brooks Triglyceride [Mass/Vol] 155 mg/dL Critically high <=150 [facility] Comment on above: Performed By: #### ANU BENOITRO #### [facility] [address] [address] [address] Manfred Brooks VLDL CALC 31.0 mg/dL Normal [facility] Comment on above: Performed By: #### MILTON BENOIT #### [facility] [address] [address] [address] Manfred Brooks PROF 14(COMP METB)on 022 Albumin [Mass/Vol] 3.9 g/dL Normal 3.4-5.0 [facility] Comment on above: Performed By: #### B MANN HSTROPN, CK #### [facility] [address] [place] [address] Dr. Manfred Brooks Albumin/Globulin [Mass ratio] 1.2 {ratio} Normal [facility] Comment on above: Performed By: #### B MANN HSTROPN, CK #### [facility] [address] [place] [address] Dr. Manfred Brooks ALP [Catalytic activity/Vol] 63 U/L Normal 46-116 [facility] Comment on above: Performed By: #### B MANN HSTROPN, CK #### [facility] [address] [place] [address] Dr. Manfred Brooks ALT [Catalytic activity/Vol] 25 U/L Normal 14-59 [facility] Comment on above: Performed By: #### B MANN HSTROPN, CK #### [facility] [address] [place] [address] Dr. Manfred Brooks Anion gap [Moles/Vol] 10.8 mmol/L Normal [facility] Comment on above: Performed By: #### B MANN HSTROPN, CK #### [facility] [address] [address] [address] Manfred Brooks AST [Catalytic activity/Vol] 14 U/L Critically low 15-37 [facility] Comment on above: Performed By: #### B MP, HSTROPN, CK #### [facility] [address] [address] [address] Manfred Brooks Bilirubin [Mass/Vol] 0.6 mg/dL Normal 0.2-1.0 [facility] Comment on above: Performed By: #### B MP, HSTROPN, CK #### [facility] [address] [address] [address] Manfred Brooks Calcium [Mass/Vol] 8.6 mg/dL Normal 8.5-10.1 [facility] Comment on above: Performed By: #### B MP, HSTROPN, CK #### [facility] [address] [place] [address] Dr. Manfred Brooks Chloride [Moles/Vol] 104 mmol/L Normal 98-107 [facility] Comment on above: Performed By: #### B MP, HSTROPN, CK #### [facility] [address] [address] [address] Manfred Brooks CO2 [Moles/Vol] 31.5 mmol/L Normal 21.0-32.0 [facility] Comment on above: Performed By: #### B MP, HSTROPN, CK #### [facility] [address] [address] [address] Manfred Brooks Creatinine [Mass/Vol] 0.67 mg/dL Normal 0.55-1.02 [facility] Comment on above: Performed By: #### B MP, HSTROPN, CK #### [facility] [address] [place] [address] Dr. Manfred Brooks EGFR-AF URUGUAYAN >60 Normal >=60 [facility] Comment on above: Performed By: #### B MP, HSTROPN, CK #### [facility] [address] [address] [address] Manfred Brooks EGFR-NON AF URUGUAYAN >60 Normal >=60 [facility] Comment on above: Performed By: #### B MP, HSTROPN, CK #### [facility] [address] [address] [address] Manfred Brooks Globulin (S) [Mass/Vol] 3.2 g/dL Normal [facility] Comment on above: Performed By: #### B MP, HSTROPN, CK #### [facility] [address] [address] [address] Manfred Brooks Glucose [Mass/Vol] 102 mg/dL Normal 74-106 [facility] Comment on above: Performed By: #### B MP, HSTROPN, CK #### [facility] [address] [place] [address] Dr. Manfred Brooks Potassium [Moles/Vol] 4.3 mmol/L Normal 3.5-5.1 [facility] Comment on above: Performed By: #### B MP, HSTROPN, CK #### [facility] [address] [address] [address] Manfred Brooks Protein [Mass/Vol] 7.1 g/dL Normal 6.1-8.2 [facility] Comment on above: Performed By: #### B MP, HSTROPN, CK #### [facility] [address] [place] [address] Dr. Manfred Brooks Sodium [Moles/Vol] 142 mmol/L Normal 136-145 [facility] Comment on above: Performed By: #### B MP, HSTROPN, CK #### [facility] [address] [place] [address] Dr. Manfred Brooks Urea nitrogen [Mass/Vol] 19.0 mg/dL Critically high 7.0-18.0 [facility] Comment on above: Performed By: #### B MP, HSTROPN, CK #### [facility] [address] [place] [address] Dr. Manfred Brooks Urea nitrogen/Creatinine [Mass ratio] 28.4 mg/mg Normal [facility] Comment on above: Performed By: #### B MP, HSTROPN, CK #### [facility] [address] [address] [address] Manfred Brooks TSHon 02-04-2022 TSH 0.317 uIU/mL Critically low 0.470-4.680 [facility] Comment on above: Performed By: #### B AJMILAH DARNELL CK #### [facility] [address] [address] [address] Manfred Brooks TSH RANGE SEE BELOW Normal [facility] Comment on above: Result Comment: <0.3 4 UIU/ml HYPERTHYROID 0.34-5.60 UIU/ml EUTHYROID >5.60 UIU/ml HYPOTHYROID Performed By: #### B JAMILAH DARNELL CK #### [facility] [address] [place] [address] Dr. Manfred Brooks VITAMIN D 25 OHon 02-04-2022 VIT D 25-OH 35.9 ng/mL Normal [facility] Comment on above: Performed By: #### MILTON BENOIT #### [facility] [address] [place] [address] Dr. Manfred Brooks VIT D RANGES SEE BELOW Normal [facility] Comment on above: Result Comment: <20 ng/mL Vit D deficient 20 - <30 ng/mL Vit D insufficient 30 - 100 ng/mL Vit D sufficient >100 ng/mL Potential Toxicity Performed By: #### MILTON BENOIT #### [facility] [address] [place] [address] Dr. Manfred Brooks Ambulatory Clinical Summaryo n 04-16-2021 Ambulatory Clinical Summary {[id number] Normal [facility] General Surgery Office/Clini c Noteon 04-16-2021 General Surgery Office/Clinic Note Chief Complaint post operative follow up HPI Staff 7 day post operative follow up post excisional biopsy right neck and left flank. History of Present Illness 1 week s/p excision of irritated skin lesions right neck and left chest wall, doing well, minimal soreness, no drainage; pathology consistent with seborrheic keratoses. Review of Systems ROS - Provider Constitutional: no fever, no sweats, no weight loss. Eyes: yes glasses, no blurred vision, no visual loss. ENMT: no dentures, no hoarseness, no swallowing difficulties, no hearing loss, no ear infection(s), no nose bleeds. Cardiovascular: normal blood pressure, no chest pain, regular heartbeat, no heart murmur. Respiratory: no shortness of breath, no cough, no asthma, no wheezing. Gastrointestinal: no nausea, no vomiting, no diarrhea, no constipation, no blood in stool, no change in bowel habits, no abdominal pain, no hepatitis. Genitourinary: no kidney stones, no urine infection, no dysuria. Musculoskeletal: no pain, no weakness. Skin: no changing moles, no rash, no skin lumps. Neurologic: no seizures, no epilepsy, no headache. Psychiatric: no emotional or psychiatric problem. Heme/Lymph: no bleeding problems, no anemia, no blood clots, no transfusions. Allergy/Immunologic: no swollen lymph nodes/glands, no IV drug abuse. Other: Additional ROS info: Except as noted in the above Review of Systems and in the History of Present Illness, all other systems have been reviewed and are negative or noncontributory. Physical Exam Vitals & Measurements T: 36.7 ?C (Temporal Artery) skin: incisions healing well, no drainage or erythema, minimal resolving ecchymosis below left chest incision. Assessment/Plan 1. Seborrheic keratosis, inflamed (L82.0: Inflamed seborrheic keratosis) doing well, sutures removed; call with problems/questions. Follow-up With When Contact Information IZZY REYES, JEM Acevedo Only if needed [address] [place] [address]- Additional Instructions: Problem List/Past Medical History Ongoing Adult hypothyroidism Atherosclerosis Atrial paroxysmal tachycardia BMI 33.0-33.9,adult Carotid artery disease Carotid artery stenosis Change in bowel habits Chest pain Diastolic heart failure Diverticulitis Dyspnea Fibrocystic breast disease Hyperlipidemia Hypertension Hypertriglyceridemia Hypothyroidism Inflamed seborrheic keratosis of right cheek Mitral insufficiency Murmur Neck mass Occult blood in stools Osteoarthritis Osteopenia Other cerebral infarction Palpitations Peripheral neuropathy Rectal bleeding Seborrheic keratosis, inflamed Syncope, 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 Medications ASPIRIN atorvastatin 10 mg Tab, 10 mg= 1 tab(s), Oral, Daily Cytomel 25 mcg Tab, 25 mcg= 1 tab(s), Oral, Every other day Diclofenac 75mg Tab-DR, 75 mg, Oral, BID furosemide 20 mg Tab, 20 mg= 1 tab(s), Oral, Daily isosorbide mononitrate 30 mg ER Tab levothyroxine 88 mcg (0.088 mg) Tab, 88 mcg= 1 tab(s), Oral, Daily METOPROLOL SUCCINATE ER VITAMIN D3, As Directed Allergies Cardizem (Rash) Social History Alcohol - Denies Alcohol Use, 05/03/2019 Substance Abuse - Denies Substance Abuse, 05/03/2019 Tobacco Former smoker, quit more than 30 days ago Tobacco Use:. Never Smokeless Tobacco Use:. Cigarettes, Stopped age 63 Years., 04/16/2021 Family History Family history is negative Immunizations Vaccine Date Status SARS-CoV-2 (COVID-19) mRNA BNT-162b2 vax 12/10/2020 Recorded SARS-CoV-2 (COVID-19) mRNA BNT-162b2 vax 11/30/2020 Recorded [facility] Comment on above: Result Comment: Elec tronically Signed By: IZZY REYES, Salvatore River\Date and Time Signed: 04/16/21 13:20 EDT Pathology Noteon 04-12-2021 Pathology Note [id number] 05 [id number]. 00CD:127 [facility] Ambulatory Clinical Summaryo n 04-09-2021 Ambulatory Clinical Summary {[id number]}CD:[id number] [facility] Letter [facility] March 29, 2021 Cam Bates, [address] [place] [address] Re: BETTY CAMARENA Date of : 1940 Thank you for your referral of Betty Camarena who was seen on consultation on March 21, 2021, for two moles on right cheek. An excisional biopsy is planned. I have enclosed my consultation note for your review. I will be happy to follow Betty. Sincerely, Salvatore Moore MD General Surgery [facility] Ambulatory Clinical Summaryo n 03-21-2021 Ambulatory Clinical Summary {[id number]}CD:[id number] [facility] Patient Educationon 03-21-20 21 Patient Education Physical Medicine an d Rehabilitation Exercising to Lose Weight Exercise is structured, repetitive physical activity to improve fitness and health. Getting regular exercise is important for everyone. It is especially important if you are overweight. Being overweight increases your risk of heart disease, stroke, diabetes, high blood pressure, and several types of cancer. Reducing your calorie intake and exercising can help you lose weight. Exercise is usually categorized as moderate or vigorous intensity. To lose weight, most people need to do a certain amount of moderate-intensity or vigorous-intensity exercise each week. Moderate-intensity exercise Moderate-intensity exercise is any activity that gets you moving enough to burn at least three times more energy (calories) than if you were sitting. Examples of moderate exercise include: ? Walking a mile in 15 minutes. ? Doing light yard work. ? Biking at an easy pace. Most people should get at least 150 minutes (2 hours and 30 minutes) a week of moderate-intensity exercise to maintain their body weight. Vigorous-intensity exercise Vigorous-intensity exercise is any activity that gets you moving enough to burn at least six times more calories than if you were sitting. When you exercise at this intensity, you should be working hard enough that you are not able to carry on a conversation. Examples of vigorous exercise include: ? Running. ? Playing a team sport, such as football, basketball, and soccer. ? Jumping rope. Most people should get at least 75 minutes (1 hour and 15 minutes) a week of vigorous-intensity exercise to maintain their body weight. How can exercise affect me? When you exercise enough to burn more calories than you eat, you lose weight. Exercise also reduces body fat and builds muscle. The more muscle you have, the more calories you burn. Exercise also: ? Improves mood. ? Reduces stress and tension. ? Improves your overall fitness, flexibility, and endurance. ? Increases bone strength. The amount of exercise you need to lose weight depends on: ? Your age. ? The type of exercise. ? Any health conditions you have. ? Your overall physical ability. Talk to your health care provider about how much exercise you need and what types of activities are safe for you. What actions can I take to lose weight? Nutrition ? Make changes to your diet as told by your health care provider or diet and curriculum specialist (dietitian). This may include: ? Eating fewer calories. ? Eating more protein. ? Eating less unhealthy fats. ? Eating a diet that includes fresh fruits and vegetables, whole grains, low-fat dairy products, and lean protein. ? Avoiding foods with added fat, salt, and sugar. ? Drink plenty of water while you exercise to prevent dehydration or heat stroke. Activity ? Choose an activity that you enjoy and set realistic goals. Your health care provider can help you make an exercise plan that works for you. ? Exercise at a moderate or vigorous intensity most days of the week. ? The intensity of exercise may vary from person to person. You can tell how intense a workout is for you by paying attention to your breathing and heartbeat. Most people will notice their breathing and heartbeat get faster with more intense exercise. ? Do resistance training twice each week, such as: ? Push-ups. ? Sit-ups. ? Lifting weights. ? Using resistance bands. ? Getting short amounts of exercise can be just as helpful as long structured periods of exercise. If you have trouble finding time to exercise, try to include exercise in your daily routine. ? Get up, stretch, and walk around every 30 minutes throughout the day. ? Go for a walk during your lunch break. ? Park your car farther away from your destination. ? If you take public transportation, get off one stop early and walk the rest of the way. ? Make phone calls while standing up and walking around. ? Take the stairs instead of elevators or escalators. ? Wear comfortable clothes and shoes with good support. ? Do not exercise so much that you hurt yourself, feel dizzy, or get very short of breath. Where to find more information ? U.S. Department of Health and Human Services: www.hhs.gov ? Centers for Disease Control and Prevention (CDC): www.cdc.gov Contact a health care provider: ? Before starting a new exercise program. ? If you have questions or concerns about your weight. ? If you have a medical problem that keeps you from exercising. Get help right away if you have any of the following while exercising: ? Injury. ? Dizziness. ? Difficulty breathing or shortness of breath that does not go away when you stop exercising. ? Chest pain. ? Rapid heartbeat. Summary ? Being overweight increases your risk of heart disease, stroke, diabetes, high blood pressure, and several types of cancer. ? Losing weight koehler (more content not included)... [facility] Physician Referralon 021 Physician Referral [id number] 60 [id number] 0CD:127 [facility] Cardiovascular Lab Reporton 04-17-2020 Cardiovascular Lab Report [facility] Patient Name: Sarah [facility] MR #: [id number] Physician: Denisa Nevarez Department of Navya Alejandre Medicine Service Date: 04/16/2020 Division of Birthdate: 1940 Cardiology Room #: Adult Cardiovascular Services [place] [id number] Cardiovascular Laboratory Report INDICATION: The patient is a 79-year-old woman who was evaluated in Cardiology Clinic because of symptoms of shortness of breath, and a stress test showing ischemia in the anterior wall of the heart as well as transient ischemic dilatation. Because of that, she was referred for cardiac catheterization. PROCEDURES: 1. Left heart catheterization. 2. Bilateral selective coronary angiography. 3. Procedure performed via left radial access. 4. Access into the left radial artery under ultrasound guidance. METHODS: Procedure was explained to the patient with risks and benefits. She signed informed consent. She was brought to lab[facility] pul[facility] farm in a fasting state. The left wrist area was prepped and draped in the usual fashion. Modified Raleigh's test was favorable on the left. Access in the left radial artery was obtained using micropuncture technique and ultrasound guidance. A 6-Tajik x 11 cm Hydrophilic sheath was advanced. Verapamil was given through the sheath and heparin was administered intravenously. The JR4 diagnostic catheter was advanced over the angled Glidewire into the left ventricular cavity and used to perform left heart catheterization with measurement of pressures. Pullback across the aortic valve was performed with measurement of pressures. Bilateral selective coronary angiography was then performed using 6-Tajik JL4 and JR4 diagnostic catheters. Catheters were removed. Procedure was concluded. A TR band was used for hemostasis in the left radial artery. She tolerated the procedure well. She was transferred to the cardiovascular recovery area. She will be observed for 2 to 3 hours and then discharged to home. TOTAL FLUORO TIME: 3.49 minutes. TOTAL AIR KERMA: 344 mGy. TOTAL CONTRAST VOLUME: 30 mL. HEMODYNAMICS: AO 181/80, mean 122. LV 185/12, 24. CORONARY ANGIOGRAPHY: This is a right dominant circulation. Left Main: This arises from left coronary cusp. It bifurcates into left anterior descending and circumflex vessels. Left main is free of disease. Left Anterior Descending: This has a 30% mid segment narrowing, but no obstructive lesions. Circumflex Vessel: This has minimal disease. Right Coronary Artery: This arises from the right coronary cusp. It is a large and dominant vessel. It has a 20% diffuse disease in the mid segment and a 40% discrete stenosis in the distal segment, more distally it bifurcates into PLV and PDA branches. The PDA has a 40% proximal stenosis. SUMMARY OF FINDINGS: 1. Avxl-lx-nkprygiy 2-vessel coronary artery disease with 30% mid LAD, 20% mid RCA, 40% distal RCA, 40% proximal PDA stenosis, but no occlusive disease and minimal disease in the circumflex vessel. 2. Mxyjprpm-tq-qoihwv elevation of LVEDP. 3. Uncontrolled systemic hypertension. RECOMMENDATIONS: 1. Medical therapy for coronary artery disease with aspirin 81 mg daily. Atorvastatin 10 mg daily will be added. 2. Metoprolol succinate will be increased from 25 to 50 mg daily. 3. Lasix 20 mg daily will be added. 4. BMP in 2 weeks and follow up in Cardiology Clinic in 1 month. Electronically Signed by: Denisa Alejandre M.D. 04/22/2020 10:09 A Denisa Alejandre M.D. Date Dict: 04/16/2020/02:07 Nikki/Denisa Alejandre M.D. Date Trans: 04/17/2020 09:09 Chad/anna DN_JN:[id number] cc: Cam Bates M.D. [address], [place] [address] [facility] Encounters Encounter Date Encounter Type Care Provider Facility Start: 01-19-2024 ambulatory [facility] Start: 01-07-2024 End: 01-07-2024 ambulatory [facility] Start: 07-29-2023 End: 07-29-2023 ambulatory [facility] Start: 05-27-2023 End: 05-27-2023 ambulatory [facility] Start: 04-23-[address] [facility] Start: 04-23-2023 End: 04-23-[address] [facility] Start: 03-02-2023 End: 03-03-[address] [facility] Start: 02-27-2023 End: 02-27-2023 ambulatory [facility] Start: 01-19-2023 End: 01-20-2023 ambulatory [facility] Facility:[facility] Start: 01-09-2023 End: 01-09-[address] PERRY ALEJO . Facility:[facility] Start: 01-06-2023 End: 01-07-[address] CAM BATES . Facility:[facility] Start: 12-31-2022 End: 01-01-2023 ambulatory SHANEL MAST Facility:[facility] Start: 12-11-2022 End: 12-12-[address] CAM BATES . Facility:[facility] Start: 05-16-2022 End: 05-16-2022 ambulatory Ally Mckeon Facility:[facility] Start: 04-20-2022 End: 04-21-[address] GLORIA SALCEDO Facility:[facility] Start: 02-04-2022 End: 02-05-[address] CAM BATES . Facility: Start: 04-16-2020 End: 04-17-2020 Patient encounter procedure PROVIDER UNKNOWN Facility:[facility] Payers Date Payer Category Payer Medicare [id number] 1959 Private Health Insurance [facility] [id number] 1959 Private Health Insurance [id number] 1940 Unknown [id number] 2.16.8 [id number] 1940 Unknown [id number] 2.16.84 [id number] 1940 Unknown [id number] 2.16.84 [id number] 1940 Unknown [id number] 2.16.84 [id number] 1940 Unknown [id number] 2.16.84 [id number] 1940 Unknown [id number] 2.16.84 [id number] 1940 Unknown [id number] 2.16.84 [id number] 1940 Unknown [id number] 2.16.84 [id number] 1940 Unknown [id number] 2.16.84 [id number] Clinical Notes 03-23-2021 to 01-19-2024 Note Date & Type Note Facility 01-19-2024 Note Cardiology Progress Note - [facility] Reason for visit: ER follow-up 01/19/2024 After her last visit we had increased Toprol to 100mg daily for better BP control. After this, her BP seemed to trend up. BP had been averaging 130-160s/80s. She had a high reading of 179/90 a few days ago and she did not feel well. She felt dizzy and fatigued. She went to the ER last week for c/o increased palpitations. Palpitations seemed to worsen the higher her BP got. She had a CXR, EKG and lab work, all were unremarkable except for a low TSH that Dr. Bates was made aware of - she was discharged home. She notes she often feels worse in the AM and she feels better after she takes her AM meds. Her BP will also be high in the AM. She tried taking an extra tablet of metoprolol in the PM and she states she felt better in the morning. 01/07/2024 Patient here for 6 mo follow up persistent afib, hypertension, CAD, carotid artery stenosis, and chronic diastolic heart failure. Wore event monitor in Aug 2023 to r/o afib. Still has daily palpitations, lasting a few seconds at a time. Says she doesn't worry about them. HAMM remains unchanged. Denies chest pain and bleeding on Eliquis. Palpitations are her normal palpitations, she has had this since she was younger. Dizziness resolved. She has dyspnea with exertion. This is stable. She admits to not being very active. BP at home running 130-140/70-80s. 07/29/23 HPI: She is here for 3 month follow-up s/p PVI ([facility]), No CTI as flutter was not able to be induced during EP study. she continues to take amiodarone 200 mg she denies any recent chest pain, shortness of breath, LE edema, HAMM, palpitations, lightness, dizziness. ECG 07/29/23 SR 05/27/23 sinus rhythm 04/23/2023 sinus rhythm 02/27/2023 sinus rhythm PMH: A-fib, mild to moderate CAD with recent cath 04/2020, hypertension, bilateral carotid artery stenosis, HFpEF NYHA II ------ Previous HPI per dr. Taylor 01/27/23 HPI: Betty Camarena is a 83 y.o. year old with past medical history of atrial fibrillation and was recently admitted to [facility]. She converted on her own with mild evidence of sinus pause although the duration of which was not recorded. she was placed on amiodarone. subsequently had experienced dizziness and lightheadedness. she is noted to have high blood pressure readings in the 190 mmHg range and had been taking lisinopril and Toprol-XL along with spironolactone She was markedly symptomatic with Af. She lives alone and her children whoa re closeby check upon her. She is active for her age and is tolerating DOAC well. EKG 01/09/2023 sinus bradycardia at 53 beats a minute 12/13/2022 shows sinus bradycardia at 56 bpm Echocardiogram on 01/06/2023 Cath 04/16/2020 PMH: Past Medical History: Diagnosis Date Arthritis Atrial fibrillation (CMS/HCC) Coronary artery disease Hyperlipidemia Hypertension Hypothyroidism Obesity BMI 34.14 PSH: Past Surgical History: Procedure Laterality Date CARDIAC CATHETERIZATION CHOLECYSTECTOMY COLONOSCOPY HYSTERECTOMY UPPER GASTROINTESTINAL ENDOSCOPY SH: Social Determinants of Health Tobacco Use: Medium Risk (05/27/2023) Patient History Smoking Tobacco Use: Former Smokeless Tobacco Use: Never Passive Exposure: Not on file Alcohol Use: Not on file Financial Resource Strain: Not on file Food Insecurity: Not on file Transportation Needs: Not on file Physical Activity: Not on file Stress: Not on file Social Connections: Not on file Intimate Partner Violence: Unknown (12/03/2023) [place] Safety & Environment Fear of Current or Ex-Partner: Not on file Emotionally Abused: Not on file Physically Abused: Not on file Sexually Abused: Not on file Physically or Sexually Abused: Not on file Depression: Not on file Housing Stability: Not on file Utilities: Not on file Allergies: Allergies Allergen Reactions Digoxin Nausea Only HIVES (SMALLER) Diltiazem Hives Per patient / PCP HIVES (SMALLER) Weight: 77.1kg Visit Vitals BP 146/74 Pulse 73 Wt 77.1 kg (170 lb) SpO2 95% BMI 34.34 kg/m??? OB Status Postmenopausal Smoking Status Former BSA 1.79 m??? Meds: Current Facility-Administered Medications on File Prior to Visit Medication Dose Route Frequency Provider Last Rate Last Admin ondansetron HCl (PF) (Zofran) injection 4 mg 4 mg intravenous Once PRN Jonathon Riddle MD prochlorperazine (Compazine) injection 10 mg 10 mg intravenous Once PRN Jonathon Riddle MD Current Outpatient Medications on File Prior to Visit Medication Sig Dispense Refill apixaban (Eliquis) 5 mg tablet Eliquis 5 mg tablet TAKE 1 TABLET BY MOUTH TWICE A DAY atorvastatin (Lipitor) 10 mg tablet atorvastatin 10 mg tablet TAKE 1 TABLET BY MOUTH ONCE A DAY ergocalciferol (Vitamin D-2) 1.25 MG (18082 Units) capsule Vitamin D fu (more content not included)... [facility] 01-07-2024 Note Cardiology Progress Note - [facility] Reason for visit: follow-up 01/07/2024 Patient here for 6 mo follow up persistent afib, hypertension, CAD, carotid artery stenosis, and chronic diastolic heart failure. Wore event monitor in Aug 2023 to r/o afib. Still has daily palpitations, lasting a few seconds at a time. Says she doesn't worry about them. HAMM remains unchanged. Denies chest pain and bleeding on Eliquis. Palpitations are her normal palpitations, she has had this since she was younger. Dizziness resolved. She has dyspnea with exertion. This is stable. She admits to not being very active. BP at home running 130-140/70-80s. 07/29/23 HPI: She is here for 3 month follow-up s/p PVI ([facility]), No CTI as flutter was not able to be induced during EP study. she continues to take amiodarone 200 mg she denies any recent chest pain, shortness of breath, LE edema, HAMM, palpitations, lightness, dizziness. ECG 07/29/23 SR 05/27/23 sinus rhythm 04/23/2023 sinus rhythm 02/27/2023 sinus rhythm PMH: A-fib, mild to moderate CAD with recent cath 04/2020, hypertension, bilateral carotid artery stenosis, HFpEF NYHA II ------ Previous HPI per dr. Taylor 01/27/23 HPI: Betty Camarena is a 83 y.o. year old with past medical history of atrial fibrillation and was recently admitted to [facility]. She converted on her own with mild evidence of sinus pause although the duration of which was not recorded. she was placed on amiodarone. subsequently had experienced dizziness and lightheadedness. she is noted to have high blood pressure readings in the 190 mmHg range and had been taking lisinopril and Toprol-XL along with spironolactone She was markedly symptomatic with Af. She lives alone and her children whoa re closeby check upon her. She is active for her age and is tolerating DOAC well. EKG 01/09/2023 sinus bradycardia at 53 beats a minute 12/13/2022 shows sinus bradycardia at 56 bpm Echocardiogram on 01/06/2023 Cath 04/16/2020 PMH: Past Medical History: Diagnosis Date Arthritis Atrial fibrillation (CMS/HCC) Coronary artery disease Hyperlipidemia Hypertension Hypothyroidism Obesity BMI 34.14 PSH: Past Surgical History: Procedure Laterality Date CARDIAC CATHETERIZATION CHOLECYSTECTOMY COLONOSCOPY HYSTERECTOMY UPPER GASTROINTESTINAL ENDOSCOPY SH: Social Determinants of Health Tobacco Use: Medium Risk (05/27/2023) Patient History Smoking Tobacco Use: Former Smokeless Tobacco Use: Never Passive Exposure: Not on file Alcohol Use: Not on file Financial Resource Strain: Not on file Food Insecurity: Not on file Transportation Needs: Not on file Physical Activity: Not on file Stress: Not on file Social Connections: Not on file Intimate Partner Violence: Unknown (12/03/2023) [place] Safety & Environment Fear of Current or Ex-Partner: Not on file Emotionally Abused: Not on file Physically Abused: Not on file Sexually Abused: Not on file Physically or Sexually Abused: Not on file Depression: Not on file Housing Stability: Not on file Utilities: Not on file Allergies: Allergies Allergen Reactions Digoxin Nausea Only HIVES (SMALLER) Diltiazem Hives Per patient / PCP HIVES (SMALLER) Weight: 76.2kg Visit Vitals BP 140/80 (BP Location: Left arm, Patient Position: Sitting) Pulse 70 Ht 1.499 m (4' 11 ) Wt 76.2 kg (168 lb) SpO2 95% BMI 33.93 kg/m??? OB Status Postmenopausal Smoking Status Former BSA 1.78 m??? Meds: Current Facility-Administered Medications on File Prior to Visit Medication Dose Route Frequency Provider Last Rate Last Admin ondansetron HCl (PF) (Zofran) injection 4 mg 4 mg intravenous Once PRN Jonathon Riddle MD prochlorperazine (Compazine) injection 10 mg 10 mg intravenous Once PRN Jonathon Riddle MD Current Outpatient Medications on File Prior to Visit Medication Sig Dispense Refill apixaban (Eliquis) 5 mg tablet Eliquis 5 mg tablet TAKE 1 TABLET BY MOUTH TWICE A DAY atorvastatin (Lipitor) 10 mg tablet atorvastatin 10 mg tablet TAKE 1 TABLET BY MOUTH ONCE A DAY ergocalciferol (Vitamin D-2) 1.25 MG (91749 Units) capsule Vitamin D isosorbide mononitrate ER (Imdur) 60 mg 24 hr tablet isosorbide mononitrate ER 60 mg tablet,extended release 24 hr TAKE 1 TABLET BY MOUTH TWICE A DAY levothyroxine (Synthroid, Levoxyl) 88 mcg tablet Take 800 mcg by mouth in the morning. liothyronine (Cytomel) 5 mcg tablet Take 3 tablets by mouth in the morning. losartan (Cozaar) 50 mg tablet Take 1 tablet (50 mg) by mouth in the morning. 30 tablet 11 metoprolol succinate XL (Toprol-XL) 50 mg 24 hr tablet Take 1.5 tablets (75 mg) by mouth in the morning. TAKE 1.5 TABLETS DAILY 45 tablet 11 spironolactone (Aldactone) 25 mg tablet Take 0.5 tablets (12.5 mg) by mouth in the morning. 45 tablet 3 amiodarone (Pacerone) 200 mg (more content not included)... [facility] 01-07-2024 Note Patient here for 6 m o follow up persistent afib, hypertension, CAD, carotid artery stenosis, and chronic diastolic heart failure. Wore event monitor in Aug 2023 to r/o afib. Still has daily palpitations, lasting a few seconds at a time. Says she doesn't worry about them. HAMM remains unchanged. Denies chest pain and bleeding on Eliquis. Review of Systems Cardiovascular: Positive for dyspnea on exertion and palpitations. Musculoskeletal: Positive for arthritis and back pain. Neurological: Positive for headaches. All other systems reviewed and are negative. [facility] 07-29-2023 Note [facility] Consult Note Reason for visit: s/p Afib ablation 04/23/23 07/29/23 HPI: She is here for 3 month follow-up s/p PVI (WACA), No CTI as flutter was not able to be induced during EP study. she continues to take amiodarone 200 mg she denies any recent chest pain, shortness of breath, LE edema, HAMM, palpitations, lightness, dizziness. ECG 07/29/23 SR 05/27/23 sinus rhythm 04/23/2023 sinus rhythm 02/27/2023 sinus rhythm PMH: A-fib, mild to moderate CAD with recent cath 04/2020, hypertension, bilateral carotid artery stenosis, HFpEF NYHA II ------ Previous HPI per dr. Taylor 01/27/23 HPI: Betty Camarena is a 82 y.o. year old with past medical history of atrial fibrillation and was recently admitted to [facility]. She converted on her own with mild evidence of sinus pause although the duration of which was not recorded. she was placed on amiodarone. subsequently had experienced dizziness and lightheadedness. she is noted to have high blood pressure readings in the 190 mmHg range and had been taking lisinopril and Toprol-XL along with spironolactone She was markedly symptomatic with Af. She lives alone and her children whoa re closeby check upon her. She is active for her age and is tolerating DOAC well. EKG 01/09/2023 sinus bradycardia at 53 beats a minute 12/13/2022 shows sinus bradycardia at 56 bpm Echocardiogram on 01/06/2023 Cath 04/16/2020 PMH: Past Medical History: Diagnosis Date Arthritis Atrial fibrillation (CMS/HCC) Coronary artery disease Hyperlipidemia Hypertension Hypothyroidism Obesity BMI 34.14 PSH: Past Surgical History: Procedure Laterality Date CARDIAC CATHETERIZATION CHOLECYSTECTOMY COLONOSCOPY HYSTERECTOMY UPPER GASTROINTESTINAL ENDOSCOPY SH: Social Determinants of Health Tobacco Use: Medium Risk (05/27/2023) Patient History Smoking Tobacco Use: Former Smokeless Tobacco Use: Never Passive Exposure: Not on file Alcohol Use: Not on file Financial Resource Strain: Not on file Food Insecurity: Not on file Transportation Needs: Not on file Physical Activity: Not on file Stress: Not on file Social Connections: Not on file Intimate Partner Violence: Not on file Depression: Not on file Housing Stability: Not on file Allergies: Allergies Allergen Reactions Digoxin Nausea Only HIVES (SMALLER) Diltiazem Hives Per patient / PCP HIVES (SMALLER) Weight: 75.3kg Visit Vitals BP 164/71 (BP Location: Right arm, Patient Position: Sitting) Pulse 85 Ht 1.499 m (4' 11 ) Wt 75.3 kg (166 lb) SpO2 94% BMI 33.53 kg/m??? OB Status Postmenopausal Smoking Status Former BSA 1.77 m??? Meds: Current Facility-Administered Medications on File Prior to Visit Medication Dose Route Frequency Provider Last Rate Last Admin lactated Ringer's infusion 30 mL/hr intravenous Continuous Jasvir Calvin MD Stopped at 04/23/23 1559 ondansetron HCl (PF) (Zofran) injection 4 mg 4 mg intravenous Once PRN Jonathon Riddle MD prochlorperazine (Compazine) injection 10 mg 10 mg intravenous Once PRN Jonathon Riddle MD sodium chloride flush 10 mL 10 mL intravenous q8h PRN Jasvir Calvin MD sodium chloride flush 10 mL 10 mL intravenous q8h PRN Lucho Taylor MD Current Outpatient Medications on File Prior to Visit Medication Sig Dispense Refill amiodarone (Pacerone) 200 mg tablet Take 1 tablet (200 mg) by mouth in the morning. 90 tablet 3 apixaban (Eliquis) 5 mg tablet Eliquis 5 mg tablet TAKE 1 TABLET BY MOUTH TWICE A DAY atorvastatin (Lipitor) 10 mg tablet atorvastatin 10 mg tablet TAKE 1 TABLET BY MOUTH ONCE A DAY ergocalciferol (Vitamin D-2) 1.25 MG (47518 Units) capsule Vitamin D isosorbide mononitrate ER (Imdur) 60 mg 24 hr tablet isosorbide mononitrate ER 60 mg tablet,extended release 24 hr TAKE 1 TABLET BY MOUTH TWICE A DAY levothyroxine (Synthroid, Levoxyl) 88 mcg tablet Take 800 mcg by mouth in the morning. liothyronine (Cytomel) 5 mcg tablet Take 3 tablets by mouth in the morning. losartan (Cozaar) 50 mg tablet Take 1 tablet (50 mg) by mouth in the morning. (Patient taking differently: Take 25 mg by mouth in the morning.) 30 tablet 11 metoprolol succinate XL (Toprol-XL) 50 mg 24 hr tablet Take 1.5 tablets (75 mg) by mouth in the morning. TAKE 1.5 TABLETS DAILY 45 tablet 11 spironolactone (Aldactone) 25 mg tablet Take 0.5 tablets (12.5 mg) by mouth in the morning. 45 tablet 3 furosemide (Lasix) 20 mg tablet Take 1 tablet (20 mg) by mouth in the morning. (Patient not taking: Reported on 07/29/2023) 30 tablet 11 ROS: Cardio Basic Cardiovascular Symptoms: no lightheadedness, no leg edema, no syncope, no orthopnea, no PND, no claudication, Constitutional Constitutional: no fever, no night sweats, no significant weight gain, no significant weight loss, no exercise intolerance Eyes Eyes: no dry eyes, no (more content not included)... [facility] 07-29-2023 Note Patient here for 2 m o follow up persistent afib, hypertension, carotid artery stenosis, and chronic diastolic heart failure. Says BP lately has been in the 140's systolic. Denies chest pain, palpitations, and lightheadedness. Gets a little winded with exertion she says. Wants to know if she can go back on pantoprazole. Review of Systems Cardiovascular: Positive for dyspnea on exertion. Musculoskeletal: Positive for arthritis and back pain. Neurological: Positive for headaches. All other systems reviewed and are negative. [facility] 05-27-2023 Note [facility] Consult Note Reason for visit: s/p Afib ablation 04/23/23 HPI: She is here for 1 month follow-up s/p PVI (WACA), No CTI is flutter was not able to be induced during EP study. She has been feeling well and is amazed how well she feels today about a week after the procedure she had a little bit of chest discomfort with palpitations and lightheadedness which resolved on its own within 10 seconds or so she has had no other palpitations/lightheadedness since. she continues to take amiodarone 200 mg she completed all her GI medications with no concerns. She is back to resuming her normal activity. she denies any recent chest pain, shortness of breath, LE edema, HAMM, palpitations, lightness, dizziness. ECG 05/27/23 sinus rhythm 04/23/2023 sinus rhythm 02/27/2023 sinus rhythm PMH: A-fib, mild to moderate CAD with recent cath 04/2020, hypertension, bilateral carotid artery stenosis, HFpEF NYHA II ------ Previous HPI per dr. Taylor 01/27/23 HPI: Betty Camarena is a 82 y.o. year old with past medical history of atrial fibrillation and was recently admitted to [facility]. She converted on her own with mild evidence of sinus pause although the duration of which was not recorded. she was placed on amiodarone. subsequently had experienced dizziness and lightheadedness. she is noted to have high blood pressure readings in the 190 mmHg range and had been taking lisinopril and Toprol-XL along with spironolactone She was markedly symptomatic with Af. She lives alone and her children whoa re closeby check upon her. She is active for her age and is tolerating DOAC well. EKG 01/09/2023 sinus bradycardia at 53 beats a minute 12/13/2022 shows sinus bradycardia at 56 bpm Echocardiogram on 01/06/2023 Cath 04/16/2020 PMH: Past Medical History: Diagnosis Date Arthritis Atrial fibrillation (CMS/HCC) Coronary artery disease Hyperlipidemia Hypertension Hypothyroidism Obesity BMI 34.14 PSH: Past Surgical History: Procedure Laterality Date CARDIAC CATHETERIZATION CHOLECYSTECTOMY COLONOSCOPY HYSTERECTOMY UPPER GASTROINTESTINAL ENDOSCOPY SH: Social Determinants of Health Tobacco Use: Medium Risk (04/23/2023) Patient History Smoking Tobacco Use: Former Smokeless Tobacco Use: Never Passive Exposure: Not on file Alcohol Use: Not on file Financial Resource Strain: Not on file Food Insecurity: Not on file Transportation Needs: Not on file Physical Activity: Not on file Stress: Not on file Social Connections: Not on file Intimate Partner Violence: Not on file Depression: Not on file Housing Stability: Not on file Allergies: Allergies Allergen Reactions Digoxin Nausea Only HIVES (SMALLER) Diltiazem Hives Per patient / PCP HIVES (SMALLER) Weight: 75kg Visit Vitals Ht 1.499 m (4' 11 ) Wt 75 kg (165 lb 6.4 oz) BMI 33.41 kg/m??? OB Status Postmenopausal Smoking Status Former BSA 1.77 m??? Meds: Current Facility-Administered Medications on File Prior to Visit Medication Dose Route Frequency Provider Last Rate Last Admin lactated Ringer's infusion 30 mL/hr intravenous Continuous Jasvir Calvin MD Stopped at 04/23/23 1559 ondansetron HCl (PF) (Zofran) injection 4 mg 4 mg intravenous Once PRN Jonathon Riddle MD prochlorperazine (Compazine) injection 10 mg 10 mg intravenous Once PRN Jonathon Riddle MD sodium chloride flush 10 mL 10 mL intravenous q8h PRN Jasvir Calvin MD sodium chloride flush 10 mL 10 mL intravenous q8h PRN Lucho Taylor MD Current Outpatient Medications on File Prior to Visit Medication Sig Dispense Refill amiodarone (Pacerone) 200 mg tablet Take 1 tablet (200 mg) by mouth in the morning. 90 tablet 3 apixaban (Eliquis) 5 mg tablet Eliquis 5 mg tablet TAKE 1 TABLET BY MOUTH TWICE A DAY atorvastatin (Lipitor) 10 mg tablet atorvastatin 10 mg tablet TAKE 1 TABLET BY MOUTH ONCE A DAY ergocalciferol (Vitamin D-2) 1.25 MG (11673 Units) capsule Vitamin D famotidine (Pepcid) 20 mg tablet Take 1 tablet (20 mg) by mouth in the morning and at bedtime. 60 tablet 0 furosemide (Lasix) 20 mg tablet Take 1 tablet (20 mg) by mouth in the morning. 30 tablet 11 isosorbide mononitrate ER (Imdur) 60 mg 24 hr tablet isosorbide mononitrate ER 60 mg tablet,extended release 24 hr TAKE 1 TABLET BY MOUTH TWICE A DAY levothyroxine (Synthroid, Levoxyl) 88 mcg tablet Take 800 mcg by mouth in the morning. liothyronine (Cytomel) 5 mcg tablet Take 3 tablets by mouth in the morning. losartan (Cozaar) 50 mg tablet Take 1 tablet (50 mg) by mouth in the morning. 30 tablet 11 metoprolol succinate XL (Toprol-XL) 50 mg 24 hr tablet Take 1.5 tablets (75 mg) by mouth in the morning. TAKE 1.5 TABLETS DAILY 45 tablet 11 pantoprazole (ProtoNix) 40 mg EC tablet Take 1 tablet (40 mg) by mouth in the morning. 90 tablet 3 spironolactone (Aldac (more content not included)... [facility] 04-23-2023 Note Patient: Betty Null eser Procedure Summary Date: 04/23/23 Room / Location: [facility] 1 EP / [facility] (Cath) Anesthesia Start: 1225 Anesthesia Stop: 1559 Procedure: Ablation a-fib paroxysmal Diagnosis: Paroxysmal atrial fibrillation (CMS/HCC) (Paroxysmal atrial fibrillation (CMS/HCC) [I48.0]) Providers: Lucho Taylor MD Responsible Provider: Vickie Villanueva MD Anesthesia Type: general ASA Status: 3 Anesthesia Type: general Vitals Value Taken Time BP 138/65 04/23/23 1640 Temp 36.1 04/24/23 0908 Pulse 67 04/23/23 1644 Resp 11 04/23/23 1644 SpO2 100 % 04/23/23 1644 Vitals shown include unvalidated device data. Anesthesia Post Evaluation Patient location during evaluation: bedside Patient participation: complete - patient participated Level of consciousness: awake and alert Pain score: 1 Pain management: adequate Airway patency: patent Cardiovascular status: acceptable Respiratory status: acceptable Hydration status: acceptable Patient is hemodynamically stable and is able to be discharged from PACU per anesthesia protocol. There were no known notable events for this encounter. [facility] 04-23-2023 Note Patient: Betty Null eser Procedure Summary Date: 04/23/23 Room / Location: [facility] 1 EP / [facility]ASCULAR LAB (Cath) Anesthesia Start: 1225 Anesthesia Stop: 1559 Procedure: Ablation a-fib paroxysmal Diagnosis: Paroxysmal atrial fibrillation (CMS/HCC) (Paroxysmal atrial fibrillation (CMS/HCC) [I48.0]) Providers: Lucho Taylor MD Responsible Provider: Vickie Villanueva MD Anesthesia Type: general ASA Status: 3 Anesthesia Post Transport Note Transport to: PACU O2 Route: face mask Oxygen Flow (L/min): 8 Patient Monitor: transport monitor Transport monitor type: SpO2 Transport: uneventful Patient condition is: stable [facility] 04-23-2023 Note ATRIAL FIBRILLATION ABLATION PROCEDURE NOTE DATE OF PROCEDURE: 04/23/2023 PERFORMING PHYSICIAN: Dr. Lucho Taylor FINISHING MANAGER: Dr Marie Pace CONSENT: Patient NAME OF THE PROCEDURE: Pulmonary Vein Isolation and Comprehensive EP study. INDICATIONS FOR PROCEDURE: 1. Persistent atrial fibrillation having failed pharmacologic therapy. PROCEDURES PERFORMED: 1. Sonosite guided venous access as noted below and images stored. 2. Comprehensive EP study and catheter ablation for persistent atrial fibrillation through the pulmonary vein isolation technique. This includes right atrial recording and pacing, His bundle recording and right ventricular recording and pacing. 3. Intracardiac EP 3D mapping. 4. Intracardiac echocardiogram 5. Left atrial and coronary sinus recording and pacing to assess ablation results. 6. Left heart pressure measurements and LV pacing and recording. 7. Induction of arrhythmia and testing of ablation results using intravenous adenosine infusion. 8. Fluroscopy. 9. Arterial line placement. FLUROSCOPY: 1min 35s/5mGray INDICATIONS: 82 year old with past medical history of atrial fibrillation and was recently admitted to [facility]. She converted on her own with mild evidence of sinus pause although the duration of which was not recorded. She was placed on amiodarone. Subsequently had experienced dizziness and lightheadedness. She was markedly symptomatic with AF. She opted to proceed with ablation. PROCEDURE NOTE: Pt was brought to EP lab and she was in sinus rhythm, so LICHA was deferred. Thereafter, we proceeded to do atrial fibrillation ablation. Both the groins were then prepared and draped. Ultrasound was used to determine the course and patency of the femoral veins on both sides and they were noted to be patent and the image stored in PACS. After infiltration with 1% lidocaine, 4 venous sheaths were placed in the right as noted below and arterial line placed on the left femoral artery. LFA;4F for hemodynamic monitoring. RFV: 8Fx3 ThermoCool SF Bi-Directional over SL1/ Vizigo, SL1:Pentaray, 8Fx1 CS Catheter (EZ Steer) 9Fx1: ICE catheter. Heparin bolus was given followed by additional bolus and continuous intravenous drip to target ACT around 350. An intracardiac ultrasound catheter was inserted into the right atrium to examine the right atrial anatomy, atrial septum, pulmonary vein anatomy and to monitor for pericardial effusion and guide transseptal access. ICE revealed that the patient had a significantly mildy dilated right atrium and left atrium with the big eustachian pouch and minimal pericardial effusion. At this point I decided to proceed with the transseptal puncture to perform A. fib ablation. Double transseptal access technique was used to cross to the left side. Following the first transeptal access, which was achieved via puncture of the thinner aspect of the septum using Lee needle, Pentaray catheter was placed in the left atrium. Second transseptal access was acquired and SL1 sheath was exchanged over a wire to 8.5F Vizigo sheath. Pulmonary vein and left atrial anatomic mapping were performed using a 3-D CARTO computer-based mapping system. Identification of the pulmonary vein ostia was assisted by the left atrial signals on the ablation catheter, the ICE catheter and the Pentaray catheter placed in the individual pulmonary veins. Esophagus was mapped using the DazoS[employer] 3D mapping software and noted to lie towards the right side. A temperature probe was placed in the esophagus to monitor and avoid rise of temperature by more than a degree Celsius (Baseline 35.3C). Wide area circumferential ablation technique (WACA) was then performed with irrigated ST/SF catheter. Power settings were 40watts of 10-12s in the anterior aspect of WACA and 5-8s while ablating on the posterior wall as well as the roof. Following left WACA, isolation was noted. Following left WACA, entrance block was observed. Right sided PVI was then performed using a WACA approach with care to pace the anterior aspect of WACA and skip to ensure there was no phrenic capture. Phrenic pacing was performed while ablating on the anterior aspect. In the end, all pulmonary veins were isolated. There was change in temperature from baseline to 36.4C. Adenosine did not reveal any reconnection. Burst pacing at 300ms did not induce any tachycardia. Patient was noted to have low BP in 60's when rate was in the 130bpm and above. Phrenic nerve capture was documented. The ICE catheter was used to reexamine the intracardiac anatomy and this showed no increase in pericardial effusion. Since no flutter could be induced, I did not proceed with flutter ablation. Protamine was given and phrenic nerve capture was documented at the end of the case. ICE catheter and all catheters were removed. Venous sheaths were pulled, and hemostasis noted. She was transferred to [facility] (more content not included)... [facility] 04-23-2023 Note Airway Date/Time: 04/23/2023 12:45 PM Urgency: elective Airway not difficult General Information and Staff Patient location during procedure: OR Resident/FLIGHT SIMULATOR TEACHER/CAA: Jonathon Riddle MD Performed: resident/FLIGHT SIMULATOR TEACHER/CAA Indications and Patient Condition Indications for airway management: anesthesia and airway protection Spontaneous Ventilation: absent Sedation level: deep Preoxygenated: yes Patient position: sniffing MILS maintained throughout Mask difficulty assessment: 1 - vent by mask Final Airway Details Final airway type: endotracheal airway Successful airway: ETT Successful intubation technique: direct laryngoscopy Facilitating devices/methods: intubating stylet Blade: Marie Blade size: #3 ETT size (mm): 7.5 Cormack-Lehane Classification: grade I - full view of glottis Placement verified by: chest auscultation and capnometry Measured from: lips ETT to lips (cm): 20 Number of attempts at approach: 1 [facility] 04-23-2023 Note Patient: Betty dean Procedure Information Date/Time: 04/23/23 1230 Procedure: Ablation a-fib paroxysmal Location: [facility] 1 / [facility] (Cath) Providers: Lucho Taylor MD Relevant Problems Cardio (+) Benign essential HTN (+) Bilateral carotid artery stenosis (+) Coronary artery disease involving [place] coronary artery of [place] heart without angina pectoris (+) Paroxysmal atrial fibrillation (CMS/HCC) (+) Persistent atrial fibrillation (CMS/HCC) Clinical information reviewed: Tobacco Allergies Meds Med Hx Surg Hx OB Status Fam Hx Soc Hx Physical Exam Airway Mallampati: II TM distance: >3 FB Neck ROM: full Cardiovascular - normal exam Dental (+) upper dentures, lower dentures Pulmonary - normal exam Abdominal (+) obese Other findings: Active for age. Walks nightly. No episodes of heart failure or AFIB w RVR recently. H/o slow wakeups Anesthesia Plan ASA 3 general (GETA/. A line. PIV x 2. Heparin gtt. ACTs. ) intravenous induction Postoperative administration of opioids is intended. Anesthetic plan and risks discussed with patient. Use of blood products discussed with patient who. Plan discussed with resident, CAA and FLIGHT SIMULATOR TEACHER. Additional Equipment Requests [facility] 04-16-2023 Note MEDICATIONS TO TAKE DAY OF SURGERY WITH A SIP OF WATER FOR PROCEDURE DATE 04/23 AMIODARONE ISOSORBIDE LEVOTHYROXINE METOPROLOL PANTAPRAZOLE HOLD ELIQUIS ON Saturday 04/21 PT AGREES TO GO TO [facility] FOR LABS ON 04/17 IF YOU ARE GOING HOME AFTER YOUR SURGERY OR PROCEDURE, FOR YOUR SAFETY, YOUR SURGERY WILL BE CANCELLED IF BOTH OF THE FOLLOWING ARE NOT AVAILABLE: An adult courtesy van driver over the age of 18, that can receive information about your care after surgery, and drive you home. A responsible adult to stay with you for 24 hours in case of an emergency. Can be same as above. The highest risk of complications is within the first 24 hours after sedation/anesthesia. Nothing to eat or drink after midnight the night before surgery. This includes gum, candy, mints, and lozenges. No alcohol, marijuana, or tobacco products including vaping for 24 hours. Please brush your teeth; don't swallow the toothpaste or water. If you use dentures, wear them but do not use paste. Please leave any other removable dental hardware at home. Do not put in contact lenses. Do not wear perfume, make-up, nail ku[place]i, or lotions on the day of your surgery or procedure. Follow skin-prep/wipe instructions as below if required. Bring with you: *Insurance card *Photo ID *Medication list *Co-pay for visit/prescriptions If applicable: *Rescue inhalers *Green bracelet from lab *CPAP or BiPAP machine, if staying overnight *Any braces, splints, or equipment ordered preoperatively *Remote controls for implanted devices Leave at home: *Purse/Wallet/Moanco- unless needed for co-pay *Cell phone (can leave with family/friend or place in locker if needed) *Jewelry (including piercings and wedding bands) *If not possible, ask the person who is waiting with you to keep them Children under the age of 12 will not be allowed into patient care areas. We will call you between 3pm and 4pm the day before your surgery to give you an arrival time. If you do not receive this call, have any questions, or need to make any changes, please call [phone]. Notify your surgeon if you develop any illness such as a cold, cough, fever, sore throat or vomiting between now and your surgery. Thank you for entrusting us with your care. [facility] Surgical Services Team [facility] 02-27-2023 Note [place] Electrophysiology Consult Note Reason for visit: Afib ablation HP and consent HPI: She is here for follow-up for H&P and consent for A-fib ablation. She was provided YOHO video I did watch it. She has been hypertensive and has developed a dry cough. His cough is likely related to lisinopril so for today I discussed with her stopping lisinopril and starting losartan 50 mg daily. She has had some lower extremity swelling and used to take Lasix as needed. I discussed with her we will restart Lasix 20 mg daily as she does not have any at home. She has no changes in recent medical history. PMH: A-fib, mild to moderate CAD with recent cath 04/2020, hypertension, bilateral carotid artery stenosis, HFpEF NYHA II Medications: Toprol-XL 75 mg, Aldactone 25 mg, stop lisinopril 5 mg and start losartan 50 mg, amiodarone 200 mg, Imdur 60 mg, Lipitor 10 mg, Eliquis 5 mg twice daily, Synthroid 88 mcg, Lasix 20 mg Previous HPI per dr. Taylor 01/27/23 HPI: Betty aCmarena is a 82 y.o. year old with past medical history of atrial fibrillation and was recently admitted to [facility]. She converted on her own with mild evidence of sinus pause although the duration of which was not recorded. she was placed on amiodarone. subsequently had experienced dizziness and lightheadedness. she is noted to have high blood pressure readings in the 190 mmHg range and had been taking lisinopril and Toprol-XL along with spironolactone She was markedly symptomatic with Af. She lives alone and her children whoa re closeby check upon her. She is active for her age and is tolerating DOAC well. EKG 01/09/2023 sinus bradycardia at 53 beats a minute 12/13/2022 shows sinus bradycardia at 56 bpm Echocardiogram on 01/06/2023 Cath 04/16/2020 PMH: No past medical history on file. PSH: No past surgical history on file. SH: Social Determinants of Health Tobacco Use: Medium Risk Smoking Tobacco Use: Former Smokeless Tobacco Use: Never Passive Exposure: Not on file Alcohol Use: Not on file Financial Resource Strain: Not on file Food Insecurity: Not on file Transportation Needs: Not on file Physical Activity: Not on file Stress: Not on file Social Connections: Not on file Intimate Partner Violence: Not on file Depression: Not on file Housing Stability: Not on file Allergies: Allergies Allergen Reactions Digoxin Nausea Only Diltiazem Hives Per patient / PCP Weight: No weight available Visit Vitals Smoking Status Former Meds: Current Outpatient Medications on File Prior to Visit Medication Sig Dispense Refill amiodarone (Pacerone) 200 mg tablet Take 2 tablets (400 mg) by mouth in the morning and at bedtime for 14 days, THEN 1 tablet (200 mg) in the morning. 400mg BID until 01/21/2023 and then starting on 01/22/2023 take 200mg daily.. 146 tablet 0 apixaban (Eliquis) 5 mg tablet Eliquis 5 mg tablet TAKE 1 TABLET BY MOUTH TWICE A DAY atorvastatin (Lipitor) 10 mg tablet atorvastatin 10 mg tablet TAKE 1 TABLET BY MOUTH ONCE A DAY ergocalciferol (Vitamin D-2) 1.25 MG (06410 Units) capsule Vitamin D isosorbide mononitrate ER (Imdur) 60 mg 24 hr tablet isosorbide mononitrate ER 60 mg tablet,extended release 24 hr TAKE 1 TABLET BY MOUTH TWICE A DAY levothyroxine (Synthroid, Levoxyl) 88 mcg tablet Take 88 mcg by mouth in the morning. liothyronine (Cytomel) 5 mcg tablet Take 3 tablets by mouth in the morning. lisinopril 5 mg tablet Take 1 tablet (5 mg) by mouth in the morning. 30 tablet 11 metoprolol succinate XL (Toprol-XL) 50 mg 24 hr tablet 75 mg. TAKE 1.5 TABLETS DAILY pantoprazole (ProtoNix) 40 mg EC tablet pantoprazole 40 mg tablet,delayed release TAKE ONE TABLET BY MOUTH ONCE DAILY spironolactone (Aldactone) 25 mg tablet Take 0.5 tablets (12.5 mg) by mouth in the morning. 45 tablet 3 No current facility-administered medications on file prior to visit. ROS: Cardio Basic Cardiovascular Symptoms: no lightheadedness, no leg edema, no syncope, no orthopnea, no PND, no claudication, Constitutional Constitutional: no fever, no night sweats, no significant weight gain, no significant weight loss, no exercise intolerance Eyes Eyes: no dry eyes, no irritation, no vision change ENMT Ears: no difficulty hearing, no ear pain Nose: no frequent nosebleeds, Mouth/Throat: no sore throat, no bleeding gums, no snoring, no dry mouth, no mouth ulcers, no oral abnormalities, no teeth problems Respiratory Respiratory: no cough, no wheezing, no coughing up blood, no sleep apnea Musculoskeletal Musculoskeletal: no muscle aches, no muscle weakness, joint pain+, no back pain, no swelling in the extremities Integumentary Skin no rash, no ulcer, no varicosities, no discoloration, no pruritus Neurologic Neurologic: no loss of consciousness, no weakness, no numbness, no seizures, no dizziness, no headaches Psyc (more content not included)... [facility] 02-27-2023 Note Patient is here toda y for a 1 month follow up. Review of Systems Constitutional: Positive for weight gain. Respiratory: Positive for cough and shortness of breath. Musculoskeletal: Positive for arthritis and back pain. All other systems reviewed and are negative. [facility] 04-09-2021 Note [facility] Staff Presents for excisional biopsy form right cheek and left chest wall. Last evaluation 03/21/21. History of Present Illness no change in lesions since recent evaluation. Review of Systems ROS - Provider Constitutional: no fever, no sweats, no weight loss. Eyes: no glasses, no blurred vision, no visual loss. ENMT: no dentures, no hoarseness, no swallowing difficulties, no hearing loss, no ear infection(s), no nose bleeds. Cardiovascular: normal blood pressure, no chest pain, regular heartbeat, no heart murmur. Respiratory: no shortness of breath, no cough, no asthma, no wheezing. Gastrointestinal: no nausea, no vomiting, no diarrhea, no constipation, no blood in stool, no change in bowel habits, no abdominal pain, no hepatitis. Genitourinary: no kidney stones, no urine infection, no dysuria. Musculoskeletal: no pain, no weakness. Skin: yes changing moles, no rash, no skin lumps. Neurologic: no seizures, no epilepsy, no headache. Psychiatric: no emotional or psychiatric problem. Heme/Lymph: no bleeding problems, no anemia, no blood clots, no transfusions. Allergy/Immunologic: no swollen lymph nodes/glands, no IV drug abuse. Other: Additional ROS info: Except as noted in the above Review of Systems and in the History of Present Illness, all other systems have been reviewed and are negative or noncontributory. Physical Exam skin: right neck/jaw with 7 mm raised lesion; left chest wall with 1.5 cm raised, irregular lesion. Procedure patient brought to procedure room, placed in supine position; lesions prepped and draped; areas anesthetized with 1 % lidocaine, plain; right neck lesion excised in an elliptical fashion down to subcutaneous fat; total length of excision 1 cm; incision closed with interrupted 5-0 nylon sutures; good hemostasis; left chest wall lesion excised and closed in an identical manner; total length of excision 2 cm; tolerated well; ebl < 5 ml; sterile dressings applied. Assessment/Plan 1. Inflamed seborrheic keratosis of right cheek, (L82.0: Inflamed seborrheic keratosis) lesions excised under local anesthesia, tolerated well; to keep incisions clean and dry, remove dressings tomorrow and leave open to air; follow up in 7-10 days for suture removal; call sooner if problems/questions. Seborrheic keratosis, inflamed Follow-up No qualifying data available Problem List/Past Medical History Ongoing Adult hypothyroidism Atherosclerosis Atrial paroxysmal tachycardia BMI 33.0-33.9,adult Carotid artery disease Carotid artery stenosis Change in bowel habits Chest pain Diastolic heart failure Diverticulitis Dyspnea Fibrocystic breast disease Hyperlipidemia Hypertension Hypertriglyceridemia Hypothyroidism Inflamed seborrheic keratosis of right cheek Mitral insufficiency Murmur Neck mass Occult blood in stools Osteoarthritis Osteopenia Other cerebral infarction Palpitations Peripheral neuropathy Rectal bleeding Seborrheic keratosis, inflamed Syncope, 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 Medications ASPIRIN atorvastatin 10 mg Tab, 10 mg= 1 tab(s), Oral, Daily Cytomel 25 mcg Tab, 25 mcg= 1 tab(s), Oral, Every other day Diclofenac 75mg Tab-DR, 75 mg, Oral, BID furosemide 20 mg Tab, 20 mg= 1 tab(s), Oral, Daily isosorbide mononitrate 30 mg ER Tab levothyroxine 88 mcg (0.088 mg) Tab, 88 mcg= 1 tab(s), Oral, Daily METOPROLOL SUCCINATE ER VITAMIN D3, As Directed Allergies Cardizem (Rash) Social History Alcohol - Denies Alcohol Use, 05/03/2019 Substance Abuse - Denies Substance Abuse, 05/03/2019 Tobacco Former smoker, quit more than 30 days ago Tobacco Use:. Never Smokeless Tobacco Use:. Cigarettes, Stopped age 63 Years., 03/21/2021 Family History Family history is negative Immunizations Vaccine Date Status SARS-CoV-2 (COVID-19) mRNA BNT-162b2 vax 12/10/2020 Recorded SARS-CoV-2 (COVID-19) mRNA BNT-162b2 vax 11/30/2020 Recorded [facility] Comment on above: Result Comment: Elec tronically Signed By: IZZY REYES, Salvatore River\Date and Time Signed: 04/09/21 17:10 EDT 03-23-2021 Note Chief Complaint Consultation for excision of Moles [facility] Staff 80 year old female referred by Dr. Bates on consultation of two moles. One mole is located on the right side of the face near the jaw line. The second mole is located on the left flank region of the abdomen. Denies bleeding, itching, drainage, change in color, size or texture. C/o of irritation and uncomfortable when showering. Taking Aspirin [address] 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 Hx of Hypertension, Diastolic heart failure, mitral insufficiency, and Hyperlipemia. History of Present Illness 80 yo female with multiple medical problems, referred for changing irritated skin lesions; enlarging over the last several months, with irritation from mask and clothing; no pigmentation change, no bleeding. no personal h/o skin cancer; on baby asa daily and diclofenac prn. Review of Systems PHQ Score Initial Depression Screen Score: 0 ROS - Provider Constitutional: no fever, no sweats, no weight loss. Eyes: yes glasses, no blurred vision, no visual loss. ENMT: no dentures, no hoarseness, no swallowing difficulties, no hearing loss, no ear infection(s), no nose bleeds. Cardiovascular: high blood pressure, no chest pain, regular heartbeat, yes heart murmur. Respiratory: no shortness of breath, no cough, no asthma, no wheezing. Gastrointestinal: no nausea, no vomiting, no diarrhea, no constipation, no blood in stool, no change in bowel habits, no abdominal pain, no hepatitis. Genitourinary: no kidney stones, no urine infection, no dysuria. Musculoskeletal: no pain, no weakness. Skin: yes changing moles, no rash, no skin lumps. Neurologic: no seizures, no epilepsy, no headache. Psychiatric: no emotional or psychiatric problem. Heme/Lymph: no bleeding problems, no anemia, no blood clots, no transfusions. Allergy/Immunologic: no swollen lymph nodes/glands, no IV drug abuse. Other: Additional ROS info: Except as noted in the above Review of Systems and in the History of Present Illness, all other systems have been reviewed and are negative or noncontributory. Physical Exam Vitals & Measurements T: 36.6 ?C (Tympanic) HR: 64(Peripheral) BP: 136/80 SpO2: 94% HT: 150 cm HT: 150.0 cm WT: 74.9 kg WT: 74.9 kg BMI: 33.29 HEENT: normal conjunctiva, sclera clear, no scleral icterus, EOM intact, PERRLA, oral mucosa moist without lesions. Neck: trachea midline, no mass, symmetric, no thyromegaly or nodules, no adenopathy Respiratory: lungs CTA, respirations non labored. Cardiovascular: regular rate and rhythm, mild murmur, no pedal edema or varicosities. Gastrointestinal: obese soft, non distended, no tenderness, no masses, no palpable hernias, diastasis recti no, no hepatosplenomegaly; normal bs Musculoskeletal: normal gait, digits and nails without infection, nodes, cyanosis, clubbing. Skin: no rashes, 7 mm raised, verrucous lesion right cheek, with inflammation, no ulceration; left chest wall with 1.5 cm raised inflammed seborrheic keratiosis, small scab, no bleeding; no ulcers, no subcutaneous nodules, induration. Psychiatric/Neuro: oriented to time, place, person, judgement normal, affect appropriate for age, insight intact, no focal deficits. Tests: review of old records completed, Discussed surgical options, risks, and possible complications with patient. Assessment/Plan 1. Seborrheic keratosis, inflamed, (L82.0: Inflamed seborrheic keratosis)Inflamed seborrheic keratosis of right cheek right cheek and left chest wall; plan excisional biopsy under local anesthesia in the office for definitive diagnosis and treatment; informed consent obtained. Follow-up No qualifying data available Patient Education Exercising to Lose Weight Problem List/Past Medical History Ongoing Adult hypothyroidism Atherosclerosis Atrial paroxysmal tachycardia BMI 33.0-33.9,adult Carotid artery disease Carotid artery stenosis Change in bowel habits Chest pain Diastolic heart failure Diverticulitis Dyspnea Fibrocystic breast disease Hyperlipidemia Hypertension Hypertriglyceridemia Hypothyroidism Inflamed seborrheic keratosis of right cheek Mitral insufficiency Murmur Neck mass Occult blood in stools Osteoarthritis Osteopenia Other cerebral infarction Palpitations Peripheral neuropathy Rectal bleeding Seborrheic keratosis, inflamed Syncope, 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 Medications ASPIRIN atorvastatin 10 mg Tab, 10 mg= 1 tab(s), Oral, Daily Cytomel 25 mcg Tab, 25 mcg= 1 tab(s), Oral, Every other day Diclofenac 75mg Tab-DR, 75 mg, Oral, BID furosemide 20 mg Tab, 20 mg= 1 tab(s), Oral, Daily isosorbide mononitrate 30 mg ER Tab levothyroxine 88 mcg (0.088 mg) Tab, 88 mcg= 1 tab(s), Oral, Daily METOPROLOL SUCCINATE ER VITAMIN D3, As Directed Allergies C (more content not included)... [facility] Comment on above: Result Comment: Elec tronically Signed By: IZZY REYES, Salvatore River\Date and Time Signed: 03/23/21 10:54 EDT Summary Purpose Family History No Family History Records FoundNo Family History Records FoundNo Family History Records FoundNo Family History Records Found Advance Directives No Advanced Directives Records FoundNo Advanced Directives Records FoundNo Advanced Directives Records FoundNo Advanced Directives Records Found Additional Source Comments INFORMATION SOURCE (unrecogn ized section and content) DATE CREATED AUTHOR 05/03/2020 [facility] DATE CREATED AUTHOR AUTHOR'S ORGANIZ ATION 04/17/2021 [facility] DATE CREATED AUTHOR AUTHOR'S ORGANIZ ATION 01/25/2023 [facility] DATE CREATED AUTHOR AUTHOR'S ORGANIZ ATION 01/30/2024 [facility] FOR RECORDS PERTAINING TO PATIENTS WHO ARE OR HAVE BEEN ENROLLED IN A CHEMICAL DEPENDENCY/SUBSTANCEABUSE PROGRAM, SOME INFORMATION MAY BE OMITTED. This clinical summary was aggregated from multiple sources. Caution should be exercised in using it in the provision of clinical care. This summary normalizes information from multiple sources, and as a consequence, information in this document may materially change the coding, format and clinical context of patient data. In addition, data may be omitted in some cases. CLINICAL DECISIONS SHOULD BE BASED ON THE PRIMARY CLINICAL RECORDS. [employer] provides no warranty or guarantee of the accuracy or completeness of information in this document.
[2024-03-17 08:45] LABS: Alanine Aminotransferase 21 U/L (14-59); Albumin Globulin Ratio 1.1; Alkaline Phosphatase 68 U/L (46-116); Anion Gap 12.4; Aspartate Amino Transferase 15 U/L (15-37); BUN Creatinine Ratio 19.3; Bilirubin Total 0.8 mg/dL (0.2-1.0); Calcium 9.1 mg/dL (8.5-10.1); Carbon Dioxide 30.7 mmol/L (21.0-32.0); Chloride 101 mmol/L (98-107); Estimated GFR (African America >60 (>=60); Estimated GFR (Non-African Ame >60 (>=60); Globulin 3.5 g/dL; Glucose 101 mg/dL (74-106); Potassium 4.1 mmol/L (3.5-5.1); Sodium 140 mmol/L (136-145); Total Protein 7.5 g/dL (6.4-8.2)
[2024-03-17 08:49] LABS: Basophils Absolute Auto 0.1 10^3/uL (0.0-0.1); Eosinophils Absolute Auto 0.1 10^3/uL (0.0-0.7); Eosinophils Percent Auto 1.7 % (0.9-7.0); Hematocrit 39.5 % (36.0-48.0); Hemoglobin 12.7 g/dL (12.0-16.0); Immature Granulocytes Abs Auto 0.02 10^3/uL (0.00-0.03); Immature Granulocytes Pct Auto 0.3 % (0.0-0.5); Lymphocytes Absolute Auto 2.2 10^3/uL (1.2-3.8); Lymphocytes Percent Auto 31.9 % (20.5-60.0); Mean Corpuscular HGB Conc 32.2 g/dL (29.9-35.2); Mean Corpuscular Hemoglobin 29.6 pg (26.7-34.0); Mean Corpuscular Volume 92.1 fL (81.0-99.0); Mean Platelet Volume 10.5 fL (9.5-13.5); Monocytes Absolute Auto 0.8 10^3/uL (0.3-0.8); Monocytes Percent Auto 11.2 % (1.7-12.0); Neutrophils Absolute Auto 3.8 10^3/uL (1.4-6.5); Neutrophils Percent Auto 53.9 % (43.0-75.0); Platelet Count 278 10^3/uL (150-450); Red Blood Count 4.29 10^6/uL (4.20-5.40); Red Cell Distribution Width 13.2 % (11.0-15.0)
[2024-03-17 09:16] LABS: Estimated Average Glucose 117 mg/dL; Glycohemoglobin A1C 5.7 % (4.5-6.2)
[2024-03-17 09:39] LABS: Chol HDL Ratio 2.5; Cholesterol 109 mg/dL (<=200); Free T3 2.95 pg/mL (2.18-3.98); HDL Cholesterol 43 mg/dL (40-60); Thyroid Stimulating Hormone 0.023 uIU/mL (0.358-3.740); Triglycerides 159 mg/dL (<=150); VLDL CHOLESTEROL 31.8 mg/dL
== END 2024-03-17 08:14 | disposition home or self-care (01) ==
LOC: LAB 08:13
PROVIDERS: PCP Family Medicine; Visit Provider Family Medicine
DX: G43.909 Migraine, unspecified, not intractable, without status migrainosus (principal); R00.2 Palpitations; I48.0 Paroxysmal atrial fibrillation; I50.30 Unspecified diastolic (congestive) heart failure; E78.5 Hyperlipidemia, unspecified; R73.09 Other abnormal glucose; D64.9 Anemia, unspecified; E55.9 Vitamin D deficiency, unspecified; I11.0 Hypertensive heart disease with heart failure
CPT/HCPCS: 36415; 70470; 80053; 80061; 82306; 83036; 83540; 83880; 84436; 84443; 84481; 85025; Q9967

== ENCOUNTER 2024-12-09 10:11 | Emergency (ER) | payer MEDICARE, OTHER, SELFPAY ==
[2024-12-09] VITALS (13 sets, daily range): BP systolic 146–188; BP diastolic 77–83; PULSE 83–103; TEMP 36.6; O2SAT 93–96; BMI 32.3
--- OUTSIDE RECORDS SUMMARY | 2024-12-09 10:36 | XMS_ITS | CCD ---
Author Organization [facility] CliniSyar Care Team Providers Care Tobacco Dipper Name Role Phone UNKNOWN, PROVIDER Admitting Unavailable [...] HOY ., DR LEVY Primary Care Unavailable AKI, DR JEANINE Lambert Consulting Unavailabl e Ally [...] sources) dilTIAZem; Translations: [DILTIAZEM] Drug Allergy 11-19-2015 [facility] Repository (1 source) Digoxin; Translations: [DIGOXIN] Drug Allergy 12-24-2022 [facility] Repository Problems Active Problems Problem Classification Problem [...] disease (3 sources) Atherosclerotic heart disease of tribal coronary artery without angina pectoris; Translations: [ASHD NEZ PERCE CA W/O ANGINA PECTORIS] Onset: 02-05-2022 Chronic [...] 05-19-2022 Chronic Other aftercare (1 source) 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; Translations: [OTH CORRECTION CURRENT DRUG THERAPY] Onset: 01-13-2023 Episodic Other aftercare (1 source) detention (current) use of anticoagulants; Translations: [CORRECTION CURRNT USE ANTICOAGULANTS] Onset: 01-13-2023 Episodic Other [...] Onset: 02-05-2022 Episodic Other aftercare (1 source) 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 drugs; Translations: [CORRECTION USE ORAL HYPOGLYCEMIC DX] Onset: 05-19-2022 Episodic Other aftercare (1 source) detention (current) use of aspirin; Translations: [CORRECTION CURRENT USE OF ASPIRIN] Onset: 04-23-2022 Episodic Other lower respiratory disease (1 source) Acute respiratory distress; Translations: [ACUTE RESPIRATORY DISTRESS] Onset: 04-23-2022 Episodic Other lower respiratory disease (1 source) Dyspnea, unspecified; Translations: [DYSPNEA UNSPECIFIED] Onset: 02-05-2022 Episodic Results Test Name Value Interpretation Reference Range Facility Office Visiton 01-19-2024 Follow-up visit [id number] Jessica Camarena ra 1940 F Date Provider Department Center 01/19/2024 Neris-KAYLYN GILBERT CARD [facility] No family history on file Level of Service:77712 [place] OFFICE/OUTPATIENT ESTABLISHED MOD MDM 30 MIN Normal [facility] Office Visiton 01-07-2024 Follow-up visit [id number] Jessica Camarena ra 1940 F Date Provider Department Center 01/07/2024 KAYLYN JANG No family history on file Level of Service:89405 [place] OFFICE/OUTPATIENT ESTABLISHED MOD MDM 30 MIN [facility] 36on 08-14-2023 36 Per Leanna patient to come in and have EKG done. If patient is not in Afib, needs a 30 day monitor and follow up after monitor in office. If she is back in Afib patient to resume amiodarone. Pt will be in on 08/17/23 around 11 am for EKG [facility] 36 Patient called and states that you took her off amiodarone recently. She states that she is having elevated heart rates into the 90's and experiencing fatigue and lightness with any exertion. Patient questioning if she should go back on it. Please advise [facility] Office Visiton 07-29-2023 Follow-up visit [id number] Jessica Camarena ra 1940 F Date Provider Department [place] 07/29/2023 LEANNA OCONNELL No family history on file Level of Service:84423 [place] OFFICE/OUTPATIENT ESTABLISHED MOD [facility] 30-39 MIN [facility] 36on 06-01-2023 36 3 months post ablati on would around 07/24/23 [facility] 36 I called - she is at [...] 20mg for her to use on [email or web address] [facility] Follow-Upon 05-27-2023 Follow-Up [id number] Jessica Camarena ra 1940 F Date Provider Department [place] 05/27/2023 LEANNA OCONNELL No family history on file Level of Service:48447 [place] OFFICE/OUTPATIENT ESTABLISHED MOD MDM 30-39 MIN Reason for Visit and Comments: Follow-up [749737] [facility] Telephoneon 05-14-2023 Telephone [id number] Jessica Camarena ra 1940 Date Provider Department Center 05/14/20231986LUCRECIA JOHNS [facility] No family history on file Reason for Visit and Comments: 3 week post ablation f/u [Other] [facility] Telephoneon 04-30-2023 Telephone [id number] Jessica Camarena ra 1940 Date Provider Department Center 04/30/20231986-LUCRECIA JOHNS [facility] No family history on file Reason for Visit and Comments: afib ablation f/u [Other] [facility] HPon 04-23-2023 HP -- Attestation signed by [...] at 0800 ergocalciferol (Vitamin D-2) 1.25 MG (62857 Units) capsule Vitamin D Past Week furosemide [...] fibrillation (CMS/HCC) Persistent, not longstanding, AFIB RVR [id number] 4 for age, hypertension, HFpEF. 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 Normal [facility] NURSNOTEon 04-23-2023 NURSNOTE Patients groin site looks C/D/I with no hematoma. Discharge instructions given prior to leaving. Normal [facility] POCT GLUCOSE METER UNSOLICIT ED RESULTSon 04-23-2023 Glucose [Mass/Vol] 103 mg/dL Normal 70-105 [facility] Comment on above: Order Comment: Waive d Testing in the ED is performed under the ED CLIA certificate #[id number]. Result Comment: pbar retcorson Performed By: #### L [id number] ####[facility] ([employer])[address] [place] [address] PROTIME-INRon 04-23-2023 INR IN PPP BY COAGULATION ASSAY 1.10 Normal 0.90-1.10 [facility] Comment on above: Result Comment: ACCC P [...] CHEST 1995;[id number]. Performed By: #### L [id number] ####[facility] [employer])[address] [place] [address] PROTHROMBIN TIME (PT) IN PPP BY COAGULATION ASSAY 14.3 Seconds Normal 12.3-14.8 [facility] Comment on above: Performed By: #### L [id number] ####[facility] (KRISTINA)[address] [place] [address] [id number] 04-16-2023 [id number] ARRIVAL TIME GIVEN 1100, PT VERBALIZED UNDERSTANDIING Normal [facility] Prep for Procedureon 023 Prep for Procedure [id number] Jessica Camarena ra 1940 F Date Provider Department Center 03/13/2023 Dom-LUCRECIA JOHNS [facility] [place] [facility] No family history on file Normal [facility] [id number] 03-05-2023 [id number] ARRIVAL TIME [address] TAKE THESE MEDS ON THE MORNING OF YOUR PROCEDURE WITH SIPS OF WATER AMIODARONE ISOSORBIDE LEVOTHYROXINE METOPROLOL PANTOPRAZOLE Additional Instructions: IF YOU ARE GOING HOME AFTER YOUR SURGERY OR PROCEDURE, FOR YOUR SAFETY, YOUR SURGERY WILL BE CANCELLED IF BOTH OF THE FOLLOWING ARE NOT AVAILABLE: 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 Do not wear perfume, make-up, nail argentine, or lotions on the day of your [...] need to make any changes, please call [phone]. Notify your surgeon if you develop any illness such as a cold, cough, fever, sore throat or vomiting between now and your surgery. Thank you for entrusting us with your care. [facility] Surgical Services Team Normal [facility] BASIC METABOLIC PANELon 05-2 Anion gap [Moles/Vol] 12 mmol/L Normal 7-20 [facility] Comment on above: Performed By: #### L [id number] #### [facility] ([employer]) [address] [facility] [place] [address] Calcium [Mass/Vol] 8.7 mg/dL Normal 8.6-10.3 [facility] Comment on above: Performed By: #### L [id number] #### [facility] (BEAKER) [address] [place] [address] Chloride [Moles/Vol] 102 mmol/L Normal 98-[address] [facility] Comment on above: Performed By: #### L [id number] #### [facility] (BEAKER) [address] [place] [address] CO2 [Moles/Vol] 28 mmol/L Normal 21-31 [facility] Comment on above: Performed By: #### L [id number] #### [facility] (BEAKER) [address] [facility] [place] [address] Creatinine [Mass/Vol] 0.95 mg/dL Normal 0.60-1.20 [facility] Comment on above: Performed By: #### L [id number] #### [facility] ([facility] [address] [place] [address] GLOMERULAR FILTRATION RATE ML/MIN/1.73 SQ M.PREDICTED 60.6 mL/min/1.73m*2 Normal >60.0 [facility] Comment on above: Result Comment: The [facility]???s estimated glomerular filtration rate (eGFR) will no [...] individuals. Performed By: #### L [id number] #### [facility] ([facility]) [address] [place] [address] Glucose [Mass/Vol] 91 mg/dL Normal 70-100 [facility] Comment on above: Performed By: #### L [id number] #### [facility] ([facility]) [address] [place] [address] Potassium [Moles/Vol] 3.9 mmol/L Normal 3.5-5.1 [facility] Comment on above: Performed By: #### L [id number] #### [facility] ([facility]) [address] [place] [address] Sodium [Moles/Vol] 138 mmol/L Normal 136-145 [facility] Comment on above: Performed By: #### L [id number] #### [facility] ([facility]) [address] [place] [address] Urea nitrogen [Mass/Vol] 21 mg/dL Normal 7-25 [facility] Comment on above: Performed By: #### L [id number] #### [facility] ([facility]) [address] [place] [address] UREA NITROGEN/CREATININE (MASS RATIO) IN SER/PLAS 22.1 Normal [facility] Comment on above: Performed By: #### L [id number] #### [facility] ([facility]) [address] [place] [address] CBCon 03-02-2023 Erythrocyte distribution width (RBC) [Ratio] 14.6 % Normal 11.5-15.0 [facility] Comment on above: Performed By: #### L [id number] #### [facility] ([facility]) [address] [place] [address] ERYTHROCYTE MEAN CORPUSCULAR HEMOGLOBIN CONCENTRATION (G/DL) BY AUTOMATED 32.2 g/dL Normal 32.0-35.0 [facility] Comment on above: Performed By: #### L [id number] #### [facility] ([facility]) [address] [place] [address] Hematocrit (Bld) [Volume fraction] 38.2 % Normal 36.0-48.0 [facility] Comment on above: Performed By: #### L [id number] #### [facility] ([facility]) [address] [place] [address] Hemoglobin (Bld) [Mass/Vol] 12.3 g/dL Normal 12.0-15.0 [facility] Comment on above: Performed By: #### L [id number] #### [facility] ([facility]) [address] [place] [address] MCH (RBC) [Entitic mass] 30.1 pg Normal 27.0-33.0 [facility] Comment on above: Performed By: #### L [id number] #### [facility] ([facility]) [address] [place] [address] MCV (RBC) [Entitic vol] 93.4 fL Normal 82.0-98.0 [facility] Comment on above: Performed By: #### L [id number] #### [facility] ([facility]) [address] [place] [address] PLATELETS (10*3/UL) IN BLOOD AUTOMATED COUNT 271 10*3/uL Normal 150-400 [facility] [place] [facility] Comment on above: Performed By: #### L [id number] #### [facility] ([facility]) [address] [place] [address] RBC (Bld) [#/Vol] 4.09 10*6/uL Normal 3.80-5.00 [facility] Comment on above: Performed By: #### L [id number] #### [facility] ([facility]) [address] [place] [address] WBC (Bld) [#/Vol] 5.16 10*3/uL Normal 4.00-10.60 [facility] Comment on above: Performed By: #### L [id number] #### [facility] ([facility]) [address] [place] [address] CTA CHEST W AND/OR WO IV CON [...] reasonably achievable Electronically signed: Praveen Trevino. Normal [facility] Comment on above: Order Comment: Shaylee ryan schedule prior to March 12 Labon 03-02-2023 Lab [id number] Jessica Camarena ra 1940 Date Provider Department [place] 03/02/2023 2245-[facility] OPD LAB RESOURCE [facility] No family history on file [facility] Office Visiton 02-27-2023 Follow-up visit [id number] Jessica Camarena ra 1940 Date Provider Department [place] 02/27/2023 1596-LEANNA VIVAS [facility] No family history on file Level of Service:97666 [place] OFFICE/OUTPATIENT ESTABLISHED MOD MDM 30-39 MIN Reason for Visit and Comments: Follow-up [[id number]] - One month follow up [facility] Prep for Procedureon 023 Prep for Procedure [id number] Jessica Camarena ra 1940 Provider Department [place] 02/12/2023 1987-LUCRECIA JOHNS [facility] No family history on file [facility] 36on 02-02-2023 36 Allergy medication o r saline rinses. Avoid decongestants such as sudafed/phenylephrine/ ephedrine Normal [facility] PROF CHEM 8 (BAS METB)on Anion gap [Moles/Vol] 12.8 mmol/L Normal [facility] Comment on above: Performed By: #### B MP, HSTROPN, CK #### [facility] [address] [place] [address] Dr. Manfred Brooks Calcium [Mass/Vol] 9.5 mg/dL Normal 8.5-10.1 [facility] Comment on above: Performed By: #### B MANN HSTROPN, CK #### [facility] [address] [address] [address] Manfred Brooks Chloride [Moles/Vol] 106 mmol/L Normal 98-107 [facility] Comment on above: Performed By: #### B MP HSTROPN, CK #### [facility] [address] [address] [address] Manfred Brooks CO2 [Moles/Vol] 27.3 mmol/L Normal 21.0-32.0 [facility] Comment on above: Performed By: #### B MANN HSTROPN, CK #### [facility] [address] [place] [address] Dr. Manfred Brooks Creatinine [Mass/Vol] 0.93 mg/dL Normal 0.55-1.02 [facility] Comment on above: Performed By: #### B MANN HSTROPN, CK #### [facility] [address] [address] [address] aMnfred Brooks EGFR-AF BELIZEAN >60 Normal >=60 [facility] Comment on above: Performed By: #### B MANN HSTROPN, CK #### [facility] [address] [place] [address] Dr. Manfred Brooks EGFR-NON AF BELIZEAN 58 mL/min/1.73m2 Critically low >=60 [facility] Comment on above: Performed By: #### B MP, HSTROPN, CK #### [facility] [address] [address] [address] Manfred Brooks Glucose [Mass/Vol] 116 mg/dL Critically high 74-106 [facility] Comment on above: Performed By: #### B MP, HSTROPN, CK #### [facility] [address] [address] [address] Manfred Brooks Potassium [Moles/Vol] 4.1 mmol/L Normal 3.5-5.1 [facility] Comment on above: Performed By: #### B MANN, HSTROPN, CK #### [facility] [address] [place] [address] Dr. Manfred Brooks Sodium [Moles/Vol] 142 mmol/L Normal 136-145 [facility] Comment on above: Performed By: #### B MP, HSTROPN, CK #### [facility] [address] [place] [address] Dr. Manfred Brooks Urea nitrogen [Mass/Vol] 19.0 mg/dL Critically high 7.0-18.0 [facility] Comment on above: Performed By: #### B MP, HSTROPN, CK #### [facility] [address] [place] [address] Dr. Manfred Brooks Urea nitrogen/Creatinine [Mass ratio] 20.4 mg/mg Normal [facility] Comment on above: Performed By: #### B MP, HSTROPN, CK #### [facility] [address] [place] [address] Dr. Manfred Brooks CBC AUTO DIFFon 01-09-2023 BASO # 0.1 103/ul Normal 0.0-0.1 [facility] Comment on above: Performed By: #### C VDTBH #### [facility] [address] [place] [address] Dr. Manfred Brooks Basophils/100 WBC (Bld) 0.7 % Normal 0.2-2.0 [facility] Comment on above: Performed By: #### C VDTBH #### [facility] [address] [place] [address] Dr. Manfred Brooks EO # 0.1 103/ul Normal 0.0-0.7 [facility] Comment on above: Performed By: #### C VDTBH #### [facility] [address] [place] [address] Dr. Manfred Brooks Eosinophils/100 WBC (Bld) 1.9 % Normal 0.9-7.0 [facility] Comment on above: Performed By: #### C VDTBH #### [facility] [address] [place] [address] Dr. Manfred Brooks Erythrocyte distribution width (RBC) [Ratio] 15.5 % Critically high 11.0-15.0 [facility] Comment on above: Performed By: #### C VDTBH #### [facility] [address] [place] [address] Dr. Manfred Brooks Hematocrit (Bld) [Volume fraction] 39.1 % Normal 36.0-48.0 [facility] Comment on above: Performed By: #### C VDTBH #### [facility] [address] [place] [address] Dr. Manfred Brooks Hemoglobin (Bld) [Mass/Vol] 12.6 g/dL Normal 12.0-16.0 [facility] Comment on above: Performed By: #### C VDTBH #### [facility] [address] [place] [address] Dr. Manfred Brooks IG # 0.02 10e3/ul Normal 0.00-0.03 [facility] Comment on above: Performed By: #### C VDTBH #### [facility] [address] [place] [address] Dr. Manfred Brooks IG % 0.3 % Normal 0.0-0.5 [facility] Comment on above: Performed By: #### C VDTBH #### [facility] [address] [place] [address] Dr. Manfred Brooks LYMPH # 2.5 103/ul Normal 1.2-3.8 [facility] Comment on above: Performed By: #### C VDTBH #### [facility] [address] [place] [address] Dr. Manfred Brooks Lymphocytes/100 WBC (Bld) 36.2 % Normal 20.5-60.0 [facility] Comment on above: Performed By: #### C VDTBH #### [facility] [address] [place] [address] Dr. Manfred Brooks MANUAL DIFF REQ NO Normal [facility] Comment on above: Performed By: #### C VDTBH #### [facility] [address] [place] [address] Dr. Manfred Brooks MCH (RBC) [Entitic mass] 29.0 pg Normal 26.7-34.0 [facility] Comment on above: Performed By: #### C VDTBH #### [facility] [address] [place] [address] Dr. Manfred Brooks MCHC (RBC) [Mass/Vol] 32.2 g/dL Normal 29.9-35.2 [facility] Comment on above: Performed By: #### C VDTBH #### [facility] [address] [place] [address] Dr. Manfred Brooks MCV (RBC) [Entitic vol] 89.9 fL Normal 81.0-99.0 [facility] Comment on above: Performed By: #### C VDTBH #### [facility] [address] [place] [address] Dr. Manfred Brooks MONO # 0.6 103/ul Normal 0.3-0.8 [facility] Comment on above: Performed By: #### C VDTBH #### [facility] [address] [place] [address] Dr. Manfred Brooks Monocytes/100 WBC (Bld) 9.2 % Normal 1.7-12.0 [facility] Comment on above: Performed By: #### C VDTBH #### [facility] [address] [place] [address] Dr. Manfred Brooks NEUT # 3.5 103/ul Normal 1.4-6.5 [facility] Comment on above: Performed By: #### C VDTBH #### [facility] [address] [place] [address] Dr. Manfred Brooks Neutrophils/100 WBC (Bld) 51.7 % Normal 43.0-75.0 [facility] Comment on above: Performed By: #### C VDTBH #### [facility] [address] [place] [address] Dr. Manfred Brooks Platelet mean volume (Bld) [Entitic vol] 11.3 fL Normal 9.5-13.5 [facility] Comment on above: Performed By: #### C VDTBH #### [facility] [address] [address] [address] Manfred Brooks PLT 215 103/ul Normal 150-450 [facility] Comment on above: Performed By: #### C VDTBH #### [facility] [address] [place] [address] Dr. Manfred Brooks RBC 4.35 106/ul Normal 4.20-5.40 [facility] Comment on above: Performed By: #### C VDTBH #### [facility] [address] [place] [address] Dr. Manfred Brooks WBC 6.8 103/ul Normal 4.0-11.0 [facility] Comment on above: Performed By: #### C VDTBH #### [facility] [address] [place] [address] Dr. Manfred Brooks CPKon 01-09-2023 CK [Catalytic activity/Vol] 121 U/L Normal 26-192 [facility] Comment on above: Performed By: #### B MP, HSTROPN, CK #### [facility] [address] [place] [address] Dr. Manfred Brooks PROF CHEM 8 (BAS METB)on Anion gap [Moles/Vol] 14.2 mmol/L Normal [facility] Comment on above: Performed By: #### B MP, HSTROPN, CK #### [facility] [address] [place] [address] Dr. Manfred Brooks Calcium [Mass/Vol] 9.3 mg/dL Normal 8.5-10.1 [facility] Comment on above: Performed By: #### B MP, HSTROPN, CK #### [facility] [address] [place] [address] Dr. Manfred Brooks Chloride [Moles/Vol] 103 mmol/L Normal 98-107 [facility] Comment on above: Performed By: #### B MP, HSTROPN, CK #### [facility] [address] [place] [address] Dr. Manfred Brooks CO2 [Moles/Vol] 30.5 mmol/L Normal 21.0-32.0 [facility] Comment on above: Performed By: #### B MANN HSTROPN, CK #### [facility] [address] [address] [address] Manfred Brooks Creatinine [Mass/Vol] 0.76 mg/dL Normal 0.55-1.02 [facility] Comment on above: Performed By: #### B MP HSTROPN, CK #### [facility] [address] [address] [address] Manfred Brooks EGFR-AF BELIZEAN >60 Normal >=60 [facility] Comment on above: Performed By: #### B MANN HSTROPN, CK #### [facility] [address] [place] [address] Dr. Manfred Brooks EGFR-NON AF BELIZEAN >60 Normal >=60 [facility] Comment on above: Performed By: #### B MANN HSTROPN, CK #### [facility] [address] [address] [address] Manfred Brooks Glucose [Mass/Vol] 97 mg/dL Normal 74-106 [facility] Comment on above: Performed By: #### B MANN HSTROPN, CK #### [facility] [address] [place] [address] Dr[address] Manfred Brooks Potassium [Moles/Vol] 4.7 mmol/L Normal 3.5-5.1 [facility] Comment on above: Performed By: #### B MANN HSTROPN, CK #### [facility] [address] [place] [address] Dr. Manfred Brooks Sodium [Moles/Vol] 143 mmol/L Normal 136-145 [facility] Comment on above: Performed By: #### B MANN HSTROPN, CK #### [facility] [address] [place] [address] Dr. Manfred Brooks Urea nitrogen [Mass/Vol] 16.0 mg/dL Normal 7.0-18.0 [facility] Comment on above: Performed By: #### B MANN, HSTROPN, CK #### [facility] [address] [address] [address] Manfred Brooks Urea nitrogen/Creatinine [Mass ratio] 21.1 mg/mg Normal [facility] Comment on above: Performed By: #### B MANN HSTROPN, CK #### [facility] [address] [address] [address] Manfred Brooks TROPONIN, HIGH SENSITIVITYon 01-09-2023 HSTROP 6.1 pg/mL Normal 4.0-51.3 [facility] Comment on above: Result Comment: CUT- OFF POINTS HAVE BEEN ESTABLISHED BASED ON THE FOURTH UNIVERSAL DEFINITIONS OF MYOCARDIAL INFARCTION. THE UPPER REFERENCE LIMIT (URL) OF TROPONIN, DEFINED THE 99TH PERCENTILE OF cTnI DISTRIBUTION IN A REFERENCE POPULATION, HAS BEEN CONFIRMED THE DECISION THRESHOLD FOR [place] DIAGNOSIS. Performed By: #### B MANN HSTROPJim, CK #### [facility] [address] [place] [address] Dr. Manfred Brooks XR CHEST 1 Von [...] NICOLE CLINE Date: 2023-01-09 08:12 Normal [facility] CBC AUTO DIFFon 01-07-2023 BASO # 0.1 103/ul Normal 0.0-0.1 [facility] Comment on above: Performed By: #### B MANN HSTROPN, CK #### [facility] [address] [place] [address] Dr. Manfred Brooks Basophils/100 WBC (Bld) 0.8 % Normal 0.2-2.0 [facility] Comment on above: Performed By: #### B MANN HSTROPN, CK #### [facility] [address] [place] [address] Dr. Manfred Brooks EO # 0.1 103/ul Normal 0.0-0.7 [facility] Comment on above: Performed By: #### B MP, HSTROPN, CK #### [facility] [address] [place] [address] Dr. Manfred Brooks Eosinophils/100 WBC (Bld) 2.4 % Normal 0.9-7.0 [facility] Comment on above: Performed By: #### B MP, HSTROPN, CK #### [facility] [address] [place] [address] Dr. Manfred Brooks Erythrocyte distribution width (RBC) [Ratio] 15.6 % Critically high 11.0-15.0 [facility] Comment on above: Performed By: #### B MANN HSTROPN, CK #### [facility] [address] [place] [address] Dr. Manfred Brooks Hematocrit (Bld) [Volume fraction] 36.6 % Normal 36.0-48.0 [facility] Comment on above: Performed By: #### B MANN HSTROPN, CK #### [facility] [address] [place] [address] Dr. Manfred Brooks Hemoglobin (Bld) [Mass/Vol] 11.8 g/dL Critically low 12.0-16.0 [facility] Comment on above: Result Comment: RON ENT RECIEVED FLUIDS YESTERDAY AFTER MORNING CBC Performed By: #### B MP, HSTROPN, CK #### [facility] [address] [place] [address] Dr. Manfred Brooks IG # 0.01 10e3/ul Normal 0.00-0.03 [facility] Comment on above: Performed By: #### B MANN HSTROPN, CK #### [facility] [address] [place] [address] Dr. Manfred Brooks IG % 0.2 % Normal 0.0-0.5 [facility] Comment on above: Performed By: #### B MP, HSTROPN, CK #### [facility] [address] [place] [address] Dr. Manfred Brooks LYMPH # 2.1 103/ul Normal 1.2-3.8 [facility] Comment on above: Performed By: #### B MP, HSTROPN, CK #### [facility] [address] [place] [address] Dr. Manfred Brooks Lymphocytes/100 WBC (Bld) 35.1 % Normal 20.5-60.0 [facility] Comment on above: Performed By: #### B MP, HSTROPN, CK #### [facility] [address] [place] [address] Dr. Manfred Brooks MANUAL DIFF REQ NO Normal [facility] Comment on above: Performed By: #### B MP, HSTROPN, CK #### [facility] [address] [place] [address] Dr. Manfred Brooks MCH (RBC) [Entitic mass] 28.9 pg Normal 26.7-34.0 [facility] Comment on above: Performed By: #### B MP, HSTROPN, CK #### [facility] [address] [place] [address] Dr. Manfred Brooks MCHC (RBC) [Mass/Vol] 32.2 g/dL Normal 29.9-35.2 [facility] Comment on above: Performed By: #### B MP, HSTROPN, CK #### [facility] [address] [place] [address] Dr. Manfred Brooks MCV (RBC) [Entitic vol] 89.7 fL Normal 81.0-99.0 [facility] Comment on above: Performed By: #### B MP, HSTROPN, CK #### [facility] [address] [place] [address] Dr. Manfred Brooks MONO # 0.6 103/ul Normal 0.3-0.8 [facility] Comment on above: Performed By: #### B MP, HSTROPN, CK #### [facility] [address] [place] [address] Dr. Manfred Brooks Monocytes/100 WBC (Bld) 9.4 % Normal 1.7-12.0 [facility] Comment on above: Performed By: #### B MANN HSTROPN, CK #### [facility] [address] [address] [address] Manfred Brooks NEUT # 3.1 103/ul Normal 1.4-6.5 [facility] Comment on above: Performed By: #### B MANN HSTROPN, CK #### [facility] [address] [place] [address] Dr. Manfred Brooks Neutrophils/100 WBC (Bld) 52.1 % Normal 43.0-75.0 [facility] Comment on above: Performed By: #### B MANN HSTROPN, CK #### [facility] [address] [place] [address] Dr. Manfred Brooks Platelet mean volume (Bld) [Entitic vol] 10.3 fL Normal 9.5-13.5 [facility] Comment on above: Performed By: #### B MANN, HSTROPN, CK #### [facility] [address] [place] [address] Dr. Manfred Brooks PLT 252 103/ul Normal 150-450 [facility] Comment on above: Performed By: #### B MANN, HSTROPN, CK #### [facility] [address] [place] [address] Dr. Manfred Brooks RBC 4.08 106/ul Critically low 4.20-5.40 [facility] Comment on above: Performed By: #### B MP, HSTROPN, CK #### [facility] [address] [place] [address] Dr. Manfred Brooks WBC 5.9 103/ul Normal 4.0-11.0 [facility] Comment on above: Performed By: #### B MANN, HSTROPN, CK #### [facility] [address] [place] [address] Dr. Manfred Brooks DIGOXINon 01-07-2023 DIG 0.5 ng/mL Critically low 0.9-2.0 [facility] Comment on above: Performed By: #### E ANU HOGANAVILA #### [facility] [address] [address] [address] Manfred Brooks PROF 14(COMP METB)on 023 Albumin [Mass/Vol] 3.6 g/dL Normal 3.4-5.0 [facility] Comment on above: Performed By: #### C VDTBH #### [facility] [address] [address] [address] Manfred Brooks Albumin/Globulin [Mass ratio] 1.3 {ratio} Normal [facility] Comment on above: Performed By: #### C VDTBH #### [facility] [address] [place] [address] Dr. Manfred Brooks ALP [Catalytic activity/Vol] 67 U/L Normal 46-116 [facility] Comment on above: Performed By: #### C VDTBH #### [facility] [address] [place] [address] Dr. Manrfed Brooks ALT [Catalytic activity/Vol] 23 U/L Normal 14-59 [facility] Comment on above: Performed By: #### C VDTBH #### [facility] [address] [place] [address] Dr. Manfred Brooks Anion gap [Moles/Vol] 10.8 mmol/L Normal [facility] Comment on above: Performed By: #### C VDTBH #### [facility] [address] [address] [address] Manfred Brooks AST [Catalytic activity/Vol] 14 U/L Critically low 15-37 [facility] Comment on above: Performed By: #### C VDTBH #### [facility] [address] [address] [address] Manfred Brooks Bilirubin [Mass/Vol] 0.7 mg/dL Normal 0.2-1.0 [facility] Comment on above: Performed By: #### C VDTBH #### [facility] [address] [address] [address] Manfred Brooks Calcium [Mass/Vol] 8.7 mg/dL Normal 8.5-10.1 [facility] Comment on above: Performed By: #### C VDTBH #### [facility] [address] [place] [address] Dr. Manfred Brooks Chloride [Moles/Vol] 106 mmol/L Normal 98-107 [facility] Comment on above: Performed By: #### C VDTBH #### [facility] [address] [place] [address] Dr. Manfred Brooks CO2 [Moles/Vol] 29.8 mmol/L Normal 21.0-32.0 [facility] Comment on above: Performed By: #### C VDTBH #### [facility] [address] [place] [address] Dr. Manfred Brooks Creatinine [Mass/Vol] 0.77 mg/dL Normal 0.55-1.02 [facility] Comment on above: Performed By: #### C VDTBH #### [facility] [address] [place] [address] Dr. Manfred Brooks EGFR-AF BELIZEAN >60 Normal >=60 [facility] Comment on above: Performed By: #### C VDTBH #### [facility] [address] [place] [address] Dr. Manfred Brooks EGFR-NON AF BELIZEAN >60 Normal >=60 [facility] Comment on above: Performed By: #### C VDTBH #### [facility] [address] [place] [address] Dr. Manfred Brooks Globulin (S) [Mass/Vol] 2.7 g/dL Normal [facility] Comment on above: Performed By: #### C VDTBH #### [facility] [address] [place] [address] Dr. Manfred Brooks Glucose [Mass/Vol] 99 mg/dL Normal 74-106 [facility] Comment on above: Performed By: #### C VDTBH #### [facility] [address] [place] [address] Dr. Manfred Brooks Potassium [Moles/Vol] 3.6 mmol/L Normal 3.5-5.1 [facility] Comment on above: Performed By: #### C VDTBH #### [facility] [address] [place] [address] Dr. Manfred Brooks Protein [Mass/Vol] 6.3 g/dL Critically low 6.4-8.2 [facility] Comment on above: Performed By: #### C VDTBH #### [facility] [address] [place] [address] Dr. Manfred Brooks Sodium [Moles/Vol] 143 mmol/L Normal 136-145 [facility] Comment on above: Performed By: #### C VDTBH #### [facility] [address] [place] [address] Dr. Manfred Brooks Urea nitrogen [Mass/Vol] 19.0 mg/dL Critically high 7.0-18.0 [facility] Comment on above: Performed By: #### C VDTBH #### [facility] [address] [place] [address] Dr. Manfred Brooks Urea nitrogen/Creatinine [Mass ratio] 24.7 mg/mg Normal [facility] Comment on above: Performed By: #### C VDTBH #### [facility] [address] [place] [address] Dr. Manfred Brooks BNPon 01-06-2023 Natriuretic peptide B (Bld) [Mass/Vol] 186.0 pg/mL Normal <=1,800.0 [facility] Comment on above: Performed By: #### E MILTON HOGAN #### [facility] [address] [place] [address] Dr. Manfred Brooks CBC AUTO DIFFon 01-06-2023 BASO # 0.1 103/ul Normal 0.0-0.1 [facility] Comment on above: Performed By: #### B VP OF CUST[employer]ER EXPERIENCE STRATEGY, CMP #### [facility] [address] [place] [address] Dr. Manfred Brooks Basophils/100 WBC (Bld) 1.2 % Normal 0.2-2.0 [facility] Comment on above: Performed By: #### B VP OF C[employer]ER EXPERIENCE STRATEGY, CMP #### [facility] [address] [place] [address] Dr. Manfred Brooks EO # 0.1 103/ul Normal 0.0-0.7 [facility] Comment on above: Performed By: #### B VP OF C[employer]ER EXPERIENCE STRATEGY, CMP #### [facility] [address] [place] [address] Dr. Manfred Brooks Eosinophils/100 WBC (Bld) 2.1 % Normal 0.9-7.0 [facility] Comment on above: Performed By: #### B VP OF C[employer] EXPERIENCE STRATEGY, CMP #### [facility] [address] [place] [address] Dr. Manfred Brooks Erythrocyte distribution width (RBC) [Ratio] 15.2 % Critically high 11.0-15.0 [facility] Comment on above: Performed By: #### B VP OF [employer] EXPERIENCE STRATEGY, CMP #### [facility] [address] [place] [address] Dr. Manfred Brooks Hematocrit (Bld) [Volume fraction] 42.3 % Normal 36.0-48.0 [facility] Comment on above: Performed By: #### B VP OF C[employer] EXPERIENCE STRATEGY, CMP #### [facility] [address] [place] [address] Dr. Manfred Brooks Hemoglobin (Bld) [Mass/Vol] 13.8 g/dL Normal 12.0-16.0 [facility] Comment on above: Performed By: #### B VP OF C[employer] EXPERIENCE STRATEGY, CMP #### [facility] [address] [place] [address] Dr. Manfred Brooks IG # 0.01 10e3/ul Normal 0.00-0.03 [facility] Comment on above: Performed By: #### B VP OF C[employer] EXPERIENCE STRATEGY, CMP #### [facility] [address] [place] [address] Dr. Manfred Brooks IG % 0.2 % Normal 0.0-0.5 [facility] Comment on above: Performed By: #### B VP OF CUSTOMER EXPERIENCE STRATEGY, CMP #### [facility] [address] [place] [address] Dr. Manfred Brooks LYMPH # 2.1 103/ul Normal 1.2-3.8 [facility] Comment on above: Performed By: #### B VP OF CUST[employer] EXPERIENCE STRATEGY, CMP #### [facility] [address] [place] [address] Dr. Manfred Brooks Lymphocytes/100 WBC (Bld) 35.6 % Normal 20.5-60.0 [facility] Comment on above: Performed By: #### B VP OF CUSTOMER EXPERIENCE STRATEGY, CMP #### [facility] [address] [place] [address] Dr. Manfred Brooks MANUAL DIFF REQ NO Normal [facility] Comment on above: Performed By: #### B VP OF CUSTOMER EXPERIENCE STRATEGY, CMP #### [facility] [address] [place] [address] Dr. Manfred Brooks MCH (RBC) [Entitic mass] 29.1 pg Normal 26.7-34.0 [facility] Comment on above: Performed By: #### B VP OF CUSTOMER EXPERIENCE STRATEGY, CMP #### [facility] [address] [place] [address] Dr. Manfred Broosk MCHC (RBC) [Mass/Vol] 32.6 g/dL Normal 29.9-35.2 [facility] Comment on above: Performed By: #### B VP OF CUSTOMER EXPERIENCE STRATEGY, CMP #### [facility] [address] [place] [address] Dr. Manfred Brooks MCV (RBC) [Entitic vol] 89.2 fL Normal 81.0-99.0 [facility] Comment on above: Performed By: #### B VP OF CUSTOMER EXPERIENCE STRATEGY, CMP #### [facility] [address] [place] [address] Dr. Manfred Brooks MONO # 0.5 103/ul Normal 0.3-0.8 [facility] Comment on above: Performed By: #### B VP OF CUSTOMER EXPERIENCE STRATEGY, CMP #### [facility] [address] [place] [address] Dr. Manfred Brooks Monocytes/100 WBC (Bld) 9.0 % Normal 1.7-12.0 [facility] Comment on above: Performed By: #### B VP OF CUSTOMER EXPERIENCE STRATEGY, CMP #### [facility] [address] [place] [address] Dr. Manfred Brooks NEUT # 3.0 103/ul Normal 1.4-6.5 [facility] Comment on above: Performed By: #### B VP OF CUSTOMER EXPERIENCE STRATEGY, CMP #### [facility] [address] [place] [address] Dr. Manfred Brooks Neutrophils/100 WBC (Bld) 51.9 % Normal 43.0-75.0 [facility] Comment on above: Performed By: #### B VP OF CUSTOMER EXPERIENCE STRATEGY, CMP #### [facility] [address] [place] [address] Dr. Manfred Brooks Platelet mean volume (Bld) [Entitic vol] 10.1 fL Normal 9.5-13.5 [facility] Comment on above: Performed By: #### B VP OF CUSTOMER EXPERIENCE STRATEGY, CMP #### [facility] [address] [place] [address] Dr. Manfred Brooks PLT 290 103/ul Normal 150-450 [facility] Comment on above: Performed By: #### B VP OF CUSTOMER EXPERIENCE STRATEGY, CMP #### [facility] [address] [place] [address] Dr. Manfred Brooks RBC 4.74 106/ul Normal 4.20-5.40 [facility] Comment on above: Performed By: #### B VP OF CUSTOMER EXPERIENCE STRATEGY, CMP #### [facility] [address] [place] [address] Dr. Manfred Brooks WBC 5.8 103/ul Normal 4.0-11.0 [facility] Comment on above: Performed By: #### B VP OF CUSTOMER EXPERIENCE STRATEGY, CMP #### [facility] [address] [place] [address] Dr. Manfred Brooks [facility]11 SARS-CoV-2 (COVID-19) RNA DAMIR+probe Ql (Unsp spec) Not detected Normal NOT DETECTED [facility] Comment on above: Result Comment: When diagnostic [...] for this test is supported by the Costumer of Health and Human Service's declaration that [...] longer be used). Performed By: #### C [facility] #### [facility] [address] [place] [address] Dr. Manfred Brooks ECHOCARDIO M/2D COMPLETEon 0 01-06-2023 ECHOCARDIO M/2D COMPLETE Patient: BETTY CAMARENA Exam Date: 01/06/2023 : 1940 Gender:F Ordering : DR CAM BATES . Admission #: [id number] Family : DR DENISA ALEJANDRE M.D. Order #: [id number] CLICK HERE TO VIEW EXAM ECHOCARDIOGRAM REPORT [...] M.D. on 01/06/2023 at 17:34 Normal [facility] FREE T3on 01-06-2023 FREE T3 5.79 pg/mlL Critically high 2.18-3.98 [facility] Comment on above: Performed By: #### C [facility] #### [facility] [address] [place] [address] Dr. Manfred Brooks LACTATE/LACTIC ACIDon 2022 Lactate [Moles/Vol] 1.6 mmol/L Normal 0.4-2.0 [facility] Comment on above: Performed By: #### B MP, HSTROPN, CK #### [facility] [address] [place] [address] Dr. Manfred Brooks PROF 14(COMP METB)on 023 Albumin [Mass/Vol] 4.1 g/dL Normal 3.4-5.0 [facility] Comment on above: Performed By: #### ANU BENOITRO #### [facility] [address] [place] [address] Dr. Manfred Brooks Albumin/Globulin [Mass ratio] 1.2 {ratio} Normal [facility] Comment on above: Performed By: #### ANU BENOITRO #### [facility] [address] [place] [address] Dr. Manfred Brooks ALP [Catalytic activity/Vol] 74 U/L Normal 46-116 [facility] Comment on above: Performed By: #### ANU BENOITRO #### [facility] [address] [place] [address] Dr. Manfred Brooks ALT [Catalytic activity/Vol] 29 U/L Normal 14-59 [facility] Comment on above: Performed By: #### ANU BENOITRO #### [facility] [address] [place] [address] Dr. Manfred Brooks Anion gap [Moles/Vol] 13.8 mmol/L Normal [facility] Comment on above: Performed By: #### ANU BENOITRO #### [facility] [address] [place] [address] Dr. Manfred Brooks AST [Catalytic activity/Vol] 19 U/L Normal 15-37 [facility] Comment on above: Performed By: #### ANU BENOITRO #### [facility] [address] [place] [address] Dr. Manfred Brooks Bilirubin [Mass/Vol] 0.4 mg/dL Normal 0.2-1.0 [facility] Comment on above: Performed By: #### E RUR, UMICRO #### [facility] [address] [address] [address] Manfred Brooks Calcium [Mass/Vol] 9.6 mg/dL Normal 8.5-10.1 [facility] Comment on above: Performed By: #### E JAMILAR, UMICRO #### [facility] [address] [address] [address] Manfred Brooks Chloride [Moles/Vol] 108 mmol/L Critically high 98-107 [facility] Comment on above: Performed By: #### E SAMIRA, UMICRO #### [facility] [address] [address] [address] Manfred Brooks CO2 [Moles/Vol] 31.0 mmol/L Normal 21.0-32.0 [facility] Comment on above: Performed By: #### Nikolas HOGAN, UMICRO #### [facility] [address] [place] [address] Dr. Manfred Brooks Creatinine [Mass/Vol] 0.80 mg/dL Normal 0.55-1.02 [facility] Comment on above: Performed By: #### Nikolas HOGAN, UMICRO #### [facility] [address] [place] [address] Dr. Manfred Brooks EGFR-AF BELIZEAN >60 Normal >=60 [facility] Comment on above: Performed By: #### Nikolas HOGAN, UMICRO #### [facility] [address] [place] [address] Dr. Manfred Brooks EGFR-NON AF BELIZEAN >60 Normal >=60 [facility] Comment on above: Performed By: #### E SAMIRA, UMICRO #### [facility] [address] [address] [address] Manfred Brokos Globulin (S) [Mass/Vol] 3.3 g/dL Normal [facility] Comment on above: Performed By: #### E SAMIRA, UMICRO #### [facility] [address] [place] [address] Dr. Manfred Brooks Glucose [Mass/Vol] 132 mg/dL Critically high 74-106 [facility] Comment on above: Performed By: #### ANU BENOITRO #### [facility] [address] [place] [address] Dr. Manfred Brooks Potassium [Moles/Vol] 3.8 mmol/L Normal 3.5-5.1 [facility] Comment on above: Performed By: #### Nikolas HOGAN UMICRO #### [facility] [address] [place] [address] Dr. Manfred Brooks Protein [Mass/Vol] 7.4 g/dL Normal 6.4-8.2 [facility] Comment on above: Performed By: #### Nikolas HOGAN UMICRO #### [facility] [address] [place] [address] Dr. Manfred Brooks Sodium [Moles/Vol] 149 mmol/L Critically high 136-[address] [facility] Comment on above: Performed By: #### ANU BENOITRO #### [facility] [address] [place] [address] Dr. Manfred Brooks Urea nitrogen [Mass/Vol] 20.0 mg/dL Critically high 7.0-18.0 [facility] Comment on above: Performed By: #### ANU BENOITRO #### [facility] [facility] [address] [place] [address] Dr. Manfred Brooks Urea nitrogen/Creatinine [Mass ratio] 25.0 mg/mg Normal [facility] Comment on above: Performed By: #### ANU BENOITRO #### [facility] [address] [place] [address] Dr. Manfred Brooks PROTIMEon 01-06-2023 INR Coag (PPP) [Relative time] 0.99 {INR} Normal [facility] Comment on above: Performed By: #### B MP, VENESSATRDANNIELLE, CK #### [facility] [address] [place] [address] Dr. Manfred Brooks INR GUIDELINES SEE BELOW Normal [facility] Comment on above: Result Comment: JUSTYN RED INR: 2.0 - 3.0 CONDITIONS NOT LISTED BELOW 2.5 - 3.5 FOR PROSTHETIC HEART VALVE REPLACEMENT 2.5 - 3.5 RECURRENT THROMBOSIS Performed By: #### B MP, HSTROPN, CK #### [facility] [address] [place] [address] Dr. Manfred Brooks PT Coag (PPP) [Time] 10.5 s Normal 9.0-11.6 [facility] Comment on above: Performed By: #### B MP, HSTROPN, CK #### [facility] [address] [place] [address] Dr. Manfred Brooks PTTon 01-06-2023 aPTT Coag (Bld) [Time] 28.9 s Normal 22.3-36.2 [facility] Comment on above: Performed By: #### B MP, HSTROPN, CK #### [facility] [address] [place] [address] Dr. Manfred Brooks T4on 01-06-2023 T4 [Mass/Vol] 8.00 ug/dL Normal 4.80-13.90 [facility] Comment on above: Performed By: #### B VP OF CUSTOMER EXPERIENCE STRATEGY, CMP #### [facility] [address] [place] [address] Dr. Manfred Brooks TROPONIN, HIGH SENSITIVITYon 01-06-2023 HSTROP 18.1 pg/mL Normal 4.0-51.3 [facility] Comment on above: Result Comment: CUT- OFF POINTS HAVE BEEN ESTABLISHED BASED ON THE FOURTH UNIVERSAL DEFINITIONS OF MYOCARDIAL INFARCTION. THE UPPER REFERENCE LIMIT (URL) OF TROPONIN, DEFINED THE 99TH PERCENTILE OF cTnI DISTRIBUTION IN A REFERENCE POPULATION, HAS BEEN CONFIRMED THE DECISION THRESHOLD FOR [place] DIAGNOSIS. Performed By: #### E RUR, UMICRO #### [facility] [address] [place] [address] Dr. Manfred Brooks HSTROP 10.5 pg/mL Normal 4.0-51.3 [facility] Comment on above: Result Comment: CUT- OFF POINTS HAVE BEEN ESTABLISHED BASED ON THE FOURTH UNIVERSAL DEFINITIONS OF MYOCARDIAL INFARCTION. THE UPPER REFERENCE LIMIT (URL) OF TROPONIN, DEFINED THE 99TH PERCENTILE OF cTnI DISTRIBUTION IN A REFERENCE POPULATION, HAS BEEN CONFIRMED THE DECISION THRESHOLD FOR [place] DIAGNOSIS. Performed By: #### E RUR, UMICRO #### [facility] [address] [place] [address] Dr. Manfred Brooks TSHon 01-06-2023 TSH 0.567 uIU/mL Normal 0.358-3.740 [facility] Comment on above: Performed By: #### C VDTB #### [facility] [address] [place] [address] Dr. Manfred Brooks XR CHEST 1 Von [...] ALLY MCKEON Date: 2023-01-06 07:11 Normal [facility] PROF CHEM 8 (BAS METB)on Anion gap [Moles/Vol] 13.1 mmol/L Normal [facility] Comment on above: Performed By: #### ANU BENOITRO #### [facility] [address] [place] [address] Dr. Manfred Brooks Calcium [Mass/Vol] 9.3 mg/dL Normal 8.5-10.1 [facility] Comment on above: Performed By: #### ANU BENOITRO #### [facility] [address] [place] [address] Dr. Manfred Brooks Chloride [Moles/Vol] 104 mmol/L Normal 98-107 [facility] Comment on above: Performed By: #### ANU BENOITRO #### [facility] [address] [place] [address] Dr. Manfred Brooks CO2 [Moles/Vol] 29.7 mmol/L Normal 21.0-32.0 [facility] Comment on above: Performed By: #### E RUR, UMICRO #### [facility] [address] [address] [address] Manfred Brooks Creatinine [Mass/Vol] 0.72 mg/dL Normal 0.55-1.02 [facility] Comment on above: Performed By: #### E RUR, UMICRO #### [facility] [address] [address] [address] Manfred Brooks EGFR-AF BELIZEAN >60 Normal >=60 [facility] Comment on above: Performed By: #### E RUR, UMICRO #### [facility] [address] [address] [address] Manfred Brooks EGFR-NON AF BELIZEAN >60 Normal >=60 [facility] Comment on above: Performed By: #### E RUR, UMICRO #### [facility] [address] [place] [address] Dr. Manfred Brooks Glucose [Mass/Vol] 129 mg/dL Critically high 74-[address] [facility] Comment on above: Performed By: #### E JAMILAR, UMICRO #### [facility] [address] [place] [address] Dr. Manfred Brooks Potassium [Moles/Vol] 4.8 mmol/L Normal 3.5-5.1 [facility] Comment on above: Result Comment: spec imen slightly hemolysed. suggest repeat. Performed By: #### E RUR, UMICRO #### [facility] [address] [place] [address] Dr. Manfred Brooks Sodium [Moles/Vol] 142 mmol/L Normal 136-145 [facility] Comment on above: Performed By: #### E RUR, UMICRO #### [facility] [address] [address] [address] Manfred Brooks Urea nitrogen [Mass/Vol] 17.0 mg/dL Normal 7.0-18.0 [facility] Comment on above: Performed By: #### E RUR, UMICRO #### [facility] [address] [address] [address] Manfred Brooks Urea nitrogen/Creatinine [Mass ratio] 23.6 mg/mg Normal [facility] Comment on above: Performed By: #### E MILTON HOGAN #### [facility] [address] [address] [address] Manfred Brooks BNPon 05-16-2022 Natriuretic peptide B (Bld) [Mass/Vol] 322.0 pg/mL Normal <=1,800.0 [facility] Comment on above: Performed By: #### B MP, HSTROPN, CK #### [facility] [address] [address] [address] Manfred Brooks CARDIAC TELMA ADMITon 022 CK [Catalytic activity/Vol] 109 U/L Normal 26-192 [facility] Comment on above: Performed By: #### B MP, HSTROPN, CK #### [facility] [address] [address] [address] Manfred Brooks CK.MB [Mass/Vol] 1.43 ng/mL Normal <=3.60 [facility] Comment on above: Performed By: #### B MP, HSTROPN, CK #### [facility] [address] [place] [address] Dr. Manfred Brooks HSTROP 19.6 pg/mL Normal 4.0-51.3 [facility] Comment on above: Result Comment: CUT- OFF POINTS HAVE BEEN ESTABLISHED BASED ON THE FOURTH UNIVERSAL DEFINITIONS OF MYOCARDIAL INFARCTION. THE UPPER REFERENCE LIMIT (URL) OF TROPONIN, DEFINED THE 99TH PERCENTILE OF cTnI DISTRIBUTION IN A REFERENCE POPULATION, HAS BEEN CONFIRMED THE DECISION THRESHOLD FOR [place] DIAGNOSIS. Performed By: #### B MP, HSTROPN, CK #### [facility] [address] [place] [address] Dr. Manfred Brooks MAHOGANY 71 ng/mL Normal 9-82 [facility] Comment on above: Performed By: #### B MP, HSTROPN, CK #### [facility] [address] [address] [address] Manfred Brooks CBC AUTO DIFFon 05-16-2022 BASO # 0.1 103/ul Normal 0.0-0.1 [facility] Comment on above: Performed By: #### B MANN HSTROPN, CK #### [facility] [address] [place] [address] Dr. Manfred Brooks Basophils/100 WBC (Bld) 1.4 % Normal 0.2-2.0 [facility] Comment on above: Performed By: #### B MANN HSTROPN, CK #### [facility] [address] [place] [address] Dr. Manfred Brooks EO # 0.1 103/ul Normal 0.0-0.7 [facility] Comment on above: Performed By: #### B MANN HSTROPN, CK #### [facility] [address] [place] [address] Dr. Manfred Brooks Eosinophils/100 WBC (Bld) 2.3 % Normal 0.9-7.0 [facility] Comment on above: Performed By: #### B MANN HSTROPN, CK #### [facility] [address] [place] [address] Dr. Manfred Brooks Erythrocyte distribution width (RBC) [Ratio] 14.4 % Normal 11.0-15.0 [facility] Comment on above: Performed By: #### B MANN HSTROPN, CK #### [facility] [address] [place] [address] Dr. Manfred Brooks Hematocrit (Bld) [Volume fraction] 38.1 % Normal 36.0-48.0 [facility] Comment on above: Performed By: #### B MANN HSTROPN, CK #### [facility] [address] [place] [address] Dr. Manfred Brooks Hemoglobin (Bld) [Mass/Vol] 12.1 g/dL Normal 12.0-16.0 [facility] Comment on above: Performed By: #### B MANN HSTROPN, CK #### [facility] [address] [place] [address] Dr. Manfred Brooks IG # 0.01 10e3/ul Normal 0.00-0.03 [facility] Comment on above: Performed By: #### B MP, HSTROPN, CK #### [facility] [address] [place] [address] Dr. Manfred Brooks IG % 0.2 % Normal 0.0-0.5 [facility] Comment on above: Performed By: #### B MP, HSTROPN, CK #### [facility] [address] [place] [address] Dr. Manfred Brooks LYMPH # 1.0 103/ul Critically low 1.2-3.8 [facility] Comment on above: Performed By: #### B MP, HSTROPN, CK #### [facility] [address] [place] [address] Dr. Manfred Brooks Lymphocytes/100 WBC (Bld) 22.4 % Normal 20.5-60.0 [facility] Comment on above: Performed By: #### B MP, HSTROPN, CK #### [facility] [address] [place] [address] Dr. Manfred Brooks MANUAL DIFF REQ NO Normal [facility] Comment on above: Performed By: #### B MP, HSTROPN, CK #### [facility] [address] [place] [address] Dr. Manfred Brooks MCH (RBC) [Entitic mass] 28.9 pg Normal 26.7-34.0 [facility] Comment on above: Performed By: #### B MP, HSTROPN, CK #### [facility] [address] [place] [address] Dr. Manfred Brooks MCHC (RBC) [Mass/Vol] 31.8 g/dL Normal 29.9-35.2 [facility] Comment on above: Performed By: #### B MP, HSTROPN, CK #### [facility] [address] [place] [address] Dr. Manfred Brooks MCV (RBC) [Entitic vol] 90.9 fL Normal 81.0-99.0 [facility] Comment on above: Performed By: #### B MP, HSTROPN, CK #### [facility] [address] [address] [address] Manfred Brooks MONO # 0.5 103/ul Normal 0.3-0.8 [facility] Comment on above: Performed By: #### B MP, HSTROPN, CK #### [facility] [address] [place] [address] Dr. Manfred Brooks Monocytes/100 WBC (Bld) 10.2 % Normal 1.7-12.0 [facility] Comment on above: Performed By: #### B MP, HSTROPN, CK #### [facility] [address] [place] [address] Dr. Manfred Brooks NEUT # 2.8 103/ul Normal 1.4-6.5 [facility] Comment on above: Performed By: #### B MP, HSTROPN, CK #### [facility] [address] [place] [address] Dr. Manfred Brooks Neutrophils/100 WBC (Bld) 63.5 % Normal 43.0-75.0 [facility] Comment on above: Performed By: #### B MP, HSTROPN, CK #### [facility] [address] [address] [address] Manfred Brooks Platelet mean volume (Bld) [Entitic vol] 10.1 fL Normal 9.5-13.5 [facility] Comment on above: Performed By: #### B MP, HSTROPN, CK #### [facility] [address] [place] [address] Dr. Manfred Brooks PLT 268 103/ul Normal 150-450 [facility] Comment on above: Performed By: #### B MP, HSTROPN, CK #### [facility] [address] [address] [address] Manfred Brooks RBC 4.19 106/ul Critically low 4.20-5.40 [facility] [place] Comment on above: Performed By: #### B MP, HSTROPN, CK #### [facility] [address] [address] [address] Manfred Brooks WBC 4.4 103/ul Normal 4.0-11.0 [facility] Comment on above: Performed By: #### B , HSTROPJim, #### [facility] [address] [address] STROKE HEAD WOon [...] MCKINLEY TAYLOR Date: 2022-05-16 12:01 Normal [facility] CTA NECK WO W CONon 05-16-20 22 [...] ALLY MCKEON Date: 2022-05-16 13:32 Normal [facility] CULTURE URINEon 05-16-2022 CULTURE URINE Culture Observations : LIGHT GROWTH OF MIXED GENITAL BETO. NO POTENTIAL PATHOGENS SEEN. Normal [facility] Comment on above: Performed By: #### B MP, HSTROPN, CK #### [facility] [address] [address] [address] Manfred Brooks Covid-19 PCR ([facility])on SARS-CoV-2 (COVID-19) RNA DAMIR+probe Ql (Unsp spec) Not detected Normal NOT DETECTED [facility] Comment on above: Result Comment: When diagnostic [...] for this test is supported by the [place] of Health and Human Service's declaration that [...] used). Performed By: #### C VDTBH #### [facility] [address] [place], [place] [address] Dr. Manfred Brooks DIGOXINon 05-16-2022 DIG 2.3 ng/mL Critically high 0.9-2.0 [facility] [place] Comment on above: Result Comment: repe ated Performed By: #### B MP, HSTROPN, CK #### [facility] [address] [place] [address] Dr. Manfred Brooks ER URINE PROFILEon 2 Bilirubin Ql (U) Negative Normal NEGATIVE [facility] Comment on above: Performed By: #### Nikolas HOGAN, UMICRO #### [facility] [address] [place] [address] Dr. Manfred Brooks Clarity (U) CLEAR Normal CLEAR [facility] Comment on above: Performed By: #### Nikolas HOGAN, UMICRO #### [facility] [address] [place] [address] Dr. Manfred Brooks Color (U) LT. YELLOW Normal YELLOW [facility] Comment on above: Performed By: #### Nikolas HOGAN UMICRO #### [facility] [address] [place] [address] Dr. Manfred JOHN A micrscopic examination will be performed if indicated. Normal [facility] Comment on above: Performed By: #### Nikolas HOGAN UMICRO #### [facility] [address] [place] [address] Dr. Manfred Brooks Glucose Ql (U) Negative Normal NEGATIVE [facility] Comment on above: Performed By: #### Nikolas HOGAN UMICRO #### [facility] [address] [place] [address] Dr. Manfred Brooks Hemoglobin Ql (U) Negative Normal NEGATIVE [facility] Comment on above: Performed By: #### Nikolas HOGAN UMICRO #### [facility] [address] [place] [address] Dr. Manfred Brooks Ketones Ql (U) Negative Normal NEGATIVE [facility] Comment on above: Performed By: #### Nikolas HOGAN UMICRO #### [facility] [address] [place] [address] Dr. Manfred Brooks LEUKOCYTES MODERATE Abnormal NEGATIVE [facility] Comment on above: Performed By: #### Nikolas HOGAN UMICRO #### [facility] [address] [place] [address] Dr. Manfred Brooks Nitrite Ql (U) Negative Normal NEGATIVE [facility] Comment on above: Performed By: #### Nikolas HOGAN UMICRO #### [facility] [address] [place] [address] Dr. Manfred Brooks pH (U) 6.5 [pH] Normal 5-9 [facility] Comment on above: Performed By: #### Nikolas HOGAN UMICRO #### [facility] [address] [place] [address] Dr. Manfred Brooks SPEC GRAVITY <=1.005 Abnormal 1.005-<=1.025 [facility] Comment on above: Performed By: #### Nikolas HOGAN UMICRO #### [facility] [address] [place] [address] Dr. Manfred Brooks UA PROTEIN Negative Normal NEGATIVE/ TRACE [facility] Comment on above: Performed By: #### Nikolas HOGAN UMICRO #### [facility] [address] [place] [address] Dr. Manfred Brooks UR MICRO IND INDICATED Normal [facility] Comment on above: Performed By: #### Nikolas HOGAN UMICRO #### [facility] [address] [place] [address] Dr. Manfred Brooks Urobilinogen Qn (U) 0.2 {Antionette'U}/dL Normal 0.2 - 1. 0 [facility] Comment on above: Performed By: #### Nikolas HOGAN UMICRO #### [facility] [address] [place] [address] Dr. Manfred Brooks POINT OF CARE GLUCOSEon Glucose [Mass/Vol] 109 mg/dL Critically high 74-[address] [facility] Comment on above: Performed By: #### P OCGLUC #### [facility] [address] [place] [address] Dr. Manfred Brooks PROF 14(COMP METB)on Albumin [Mass/Vol] 3.9 g/dL Normal 3.4-5.0 [facility] Comment on above: Performed By: #### B MP, HSTROPN, CK #### [facility] [address] [address] [address] Manfred Brooks Albumin/Globulin [Mass ratio] 1.3 {ratio} Normal [facility] Comment on above: Performed By: #### B MP, HSTROPN, CK #### [facility] [address] [address] [address] Manfred Brooks ALP [Catalytic activity/Vol] 58 U/L Normal 46-116 [facility] Comment on above: Performed By: #### B MP, HSTROPN, CK #### [facility] [address] [address] [address] Manfred Brooks ALT [Catalytic activity/Vol] 28 U/L Normal 14-59 [facility] Comment on above: Performed By: #### B MP, HSTROPN, CK #### [facility] [address] [place] [address] Dr. Manfred Brooks Anion gap [Moles/Vol] 11.4 mmol/L Normal [facility] Comment on above: Performed By: #### B MP, HSTROPN, CK #### [facility] [address] [address] [address] Manfred Brooks AST [Catalytic activity/Vol] 18 U/L Normal 15-37 [facility] Comment on above: Performed By: #### B MP, HSTROPN, CK #### [facility] [address] [address] [address] Manfred Brooks Bilirubin [Mass/Vol] 0.6 mg/dL Normal 0.2-1.0 [facility] Comment on above: Performed By: #### B MP, HSTROPN, CK #### [facility] [address] [address] [address] Manfred Brooks Calcium [Mass/Vol] 8.8 mg/dL Normal 8.5-10.1 [facility] Comment on above: Performed By: #### B MP, HSTROPN, CK #### [facility] [address] [address] [address] Manfred Brooks Chloride [Moles/Vol] 106 mmol/L Normal 98-107 [facility] Comment on above: Performed By: #### B MANN HSTROPN, CK #### [facility] [address] [place] [address] Dr. Manfred Brooks CO2 [Moles/Vol] 31.3 mmol/L Normal 21.0-32.0 [facility] Comment on above: Performed By: #### B MP HSTROPN, CK #### [facility] [address] [place] [address] Dr. Manfred Brooks Creatinine [Mass/Vol] 0.76 mg/dL Normal 0.55-1.02 [facility] Comment on above: Performed By: #### B MANN HSTROPN, CK #### [facility] [address] [place] [address] Dr. Manfred Brooks EGFR-AF BELIZEAN >60 Normal >=60 [facility] Comment on above: Performed By: #### B MANN HSTROPN, CK #### [facility] [address] [place] [address] Dr. Manfred Brooks EGFR-NON AF BELIZEAN >60 Normal >=60 [facility] Comment on above: Performed By: #### B MANN HSTROPN, CK #### [facility] [address] [place] [address] Dr. Manfred Brooks Globulin (S) [Mass/Vol] 2.9 g/dL Normal [facility] Comment on above: Performed By: #### B MANN HSTROPN, CK #### [facility] [address] [place] [address] Dr. Manfred Brooks Glucose [Mass/Vol] 122 mg/dL Critically high 74-106 [facility] Comment on above: Performed By: #### B MANN HSTROPN, CK #### [facility] [address] [place] [address] Dr. Manfred Brooks Potassium [Moles/Vol] 3.7 mmol/L Normal 3.5-5.1 [facility] Comment on above: Performed By: #### B MANN, HSTROPN, CK #### [facility] [address] [place] [address] Dr. Manfred Brooks Protein [Mass/Vol] 6.8 g/dL Normal 6.4-8.2 [facility] Comment on above: Performed By: #### B MP, HSTROPN, CK #### [facility] [address] [place] [address] Dr. Manfred Brooks Sodium [Moles/Vol] 145 mmol/L Normal 136-145 [facility] Comment on above: Performed By: #### B MP, HSTROPN, CK #### [facility] [address] [place] [address] Dr. Manfred Brooks Urea nitrogen [Mass/Vol] 18.0 mg/dL Normal 7.0-18.0 [facility] Comment on above: Performed By: #### B MANN HSTROPJim, CK #### [facility] [address] [place] [address] Dr. Manfred Brooks Urea nitrogen/Creatinine [Mass ratio] 23.7 mg/mg Normal [facility] Comment on above: Performed By: #### B MANN, HSTROPN, CK #### [facility] [address] [place] [address] Dr. Manfred Brooks PROTIMEon 05-16-2022 INR Coag (PPP) [Relative time] 1.08 {INR} Normal [facility] Comment on above: Performed By: #### MILTON BENOIT #### [facility] [address] [place] [address] Dr. Manfred Brooks INR GUIDELINES SEE BELOW Normal [facility] Comment on above: Result Comment: JUSTYN RED INR: 2.0 - 3.0 CONDITIONS NOT LISTED BELOW 2.5 - 3.5 FOR PROSTHETIC HEART VALVE REPLACEMENT 2.5 - 3.5 RECURRENT THROMBOSIS Performed By: #### MILTON BENOIT #### [facility] [address] [place] [address] Dr. Manfred Brooks PT Coag (PPP) [Time] 11.6 s Normal 9.0-11.6 [facility] Comment on above: Performed By: #### Nikolas HOGAN UMICRO #### [facility] [address] [place] [address] Dr. Manfred Brooks PTTon 05-16-2022 aPTT Coag (Bld) [Time] 28.1 s Normal 22.3-36.2 [facility] Comment on above: Performed By: #### E RUR, UMICRO #### [facility] [address] [place] [address] Dr. Manfred Brooks TSHon 05-16-2022 TSH 0.320 uIU/mL Critically low 0.358-3.[address] [facility] Comment on above: Performed By: #### B MP, HSTROPN, CK #### [facility] [address] [place] [address] Dr. Manfred Brooks URINE MICROSCOPIC ONLYon BACTERIA TRACE Abnormal NONE SEEN [facility] Comment on above: Performed By: #### E RUR UMICRO #### [facility] [address] [place] [address] Dr. Manfred Brooks Bacteria identified Cx Nom (U) INDICATED Normal [facility] Comment on above: Performed By: #### E SAMIRA, UMICRO #### [facility] [facility] [address] [place] [address] Dr. Manfred Brooks CAST NONE SEEN Normal NONE SEEN [facility] Comment on above: Performed By: #### E RUR, UMICRO #### [facility] [address] [place] [address] Dr. Manfred Brooks Crystals LM Nom (Urine sed) NONE SEEN Normal NONE SEEN [facility] Comment on above: Performed By: #### E RUR, UMICRO #### [facility] [address] [place] [address] Dr. Manfred Brooks Epithelial cells LM Ql (Urine sed) MODERATE Abnormal NONE SEEN /RARE [facility] Comment on above: Performed By: #### E RUR, UMICRO #### [facility] [address] [place] [address] Dr. Manfred Brooks MUCOUS NONE SEEN Normal NONE SEEN [facility] Comment on above: Performed By: #### MILTON BENOIT #### [facility] [address] [place] [address] Dr. Manfred Brooks RBC NONE SEEN Abnormal 0-2 [facility] Comment on above: Performed By: #### MILTON BENOIT #### [facility] [address] [place] [address] Dr. Manfred Brooks WBC 10-20 Abnormal NONE SEEN [facility] Comment on above: Performed By: #### ANU BENOITRO #### [facility] [address] [place] [address] Dr. Manfred Brooks XR CHEST 1 Von [...] ALEJANDRO BLACKMAN Date: 2022-05-16 12:58 Normal [facility] T3, TOTAL (TRIIODOTHYRONINE) on 04-22-2022 T3, TOTAL 85 ng/dL Normal 71-180 [facility] Comment on above: Performed By: #### C VDTBH #### [facility] [address] [place] [address] Dr. Manfred Brooks BNPon 04-21-2022 Natriuretic peptide B (Bld) [Mass/Vol] 486.0 pg/mL Normal <=1,800.0 [facility] Comment on above: Performed By: #### B VP OF CUSTOMER EXPERIENCE STRATEGY, CMP #### [facility] [address] [place] [address] Dr. Manfred Brooks CBC AUTO DIFFon 04-21-2022 BASO # 0.1 103/ul Normal 0.0-0.1 [facility] Comment on above: Performed By: #### E MILTON HOGAN #### [facility] [address] [place] [address] Dr. Manfred Brooks Basophils/100 WBC (Bld) 1.0 % Normal 0.2-2.0 [facility] Comment on above: Performed By: #### Nikolas HOGAN UMICRO #### [facility] [address] [place] [address] Dr. Manfred Brooks EO # 0.2 103/ul Normal 0.0-0.7 [facility] Comment on above: Performed By: #### SUBHASH BENOITICRO #### [facility] [address] [place] [address] Dr. Manfred Brooks Eosinophils/100 WBC (Bld) 2.7 % Normal 0.9-7.0 [facility] Comment on above: Performed By: #### ANU BENOITRO #### [facility] [address] [place] [address] Dr. Manfred Brooks Erythrocyte distribution width (RBC) [Ratio] 14.2 % Normal 11.0-15.0 [facility] Comment on above: Performed By: #### ANU BENOITRO #### [facility] [address] [place] [address] Dr. Manfred Brooks Hematocrit (Bld) [Volume fraction] 38.7 % Normal 36.0-48.0 [facility] Comment on above: Performed By: #### ANU BENOITRO #### [facility] [address] [place] [address] Dr. Manfred Brooks Hemoglobin (Bld) [Mass/Vol] 12.1 g/dL Normal 12.0-16.0 [facility] Comment on above: Performed By: #### SUBHASH BENOITICRO #### [facility] [address] [place] [address] Dr. Manfred Brooks IG # 0.02 10e3/ul Normal 0.00-0.03 [facility] Comment on above: Performed By: #### ANU BENOITRO #### [facility] [address] [place] [address] Dr. Manfred Brooks IG % 0.3 % Normal 0.0-0.5 [facility] Comment on above: Performed By: #### MILTON BENOIT #### [facility] [address] [place] [address] Dr. Manfred Brooks LYMPH # 2.6 103/ul Normal 1.2-3.8 [facility] Comment on above: Performed By: #### ANU BENOITRO #### [facility] [address] [place] [address] Dr. Manfred Brooks Lymphocytes/100 WBC (Bld) 36.7 % Normal 20.5-60.0 [facility] Comment on above: Performed By: #### MILTON BENOIT #### [facility] [address] [place] [address] Dr. Manfred Brooks MANUAL DIFF REQ NO Normal [facility] Comment on above: Performed By: #### MILTON BENOIT #### [facility] [address] [place] [address] Dr. Manfred Brooks MCH (RBC) [Entitic mass] 29.2 pg Normal 26.7-34.0 [facility] Comment on above: Performed By: #### MILTON BENOIT #### [facility] [address] [place] [address] Dr. Manfred Brooks MCHC (RBC) [Mass/Vol] 31.3 g/dL Normal 29.9-35.2 [facility] Comment on above: Performed By: #### ANU BENOITRO #### [facility] [address] [place] [address] Dr. Manfred Brooks MCV (RBC) [Entitic vol] 93.5 fL Normal 81.0-99.0 [facility] Comment on above: Performed By: #### ANU BENOITRO #### [facility] [address] [place] [address] Dr. Manfred Brooks MONO # 0.7 103/ul Normal 0.3-0.8 [facility] Comment on above: Performed By: #### MILTON BENOIT #### [facility] [address] [place] [address] Dr. Manfred Brooks Monocytes/100 WBC (Bld) 9.5 % Normal 1.7-12.0 [facility] Comment on above: Performed By: #### Nikolas HOGAN UMICRO #### [facility] [address] [place] [address] Dr. Manfred Brooks NEUT # 3.5 103/ul Normal 1.4-6.5 [facility] Comment on above: Performed By: #### Nikolas HOGAN UMICRO #### [facility] [address] [place] [address] Dr. Manfred Brooks Neutrophils/100 WBC (Bld) 49.8 % Normal 43.0-75.0 [facility] Comment on above: Performed By: #### Nikolas HOGAN UMICRO #### [facility] [address] [place] [address] Dr. Manfred Brooks Platelet mean volume (Bld) [Entitic vol] 10.5 fL Normal 9.5-13.5 [facility] Comment on above: Performed By: #### Nikolas HOGAN UMICRO #### [facility] [address] [place] [address] Dr. Manfred Brooks PLT 286 103/ul Normal 150-450 [facility] Comment on above: Performed By: #### Nikolas HOGAN UMICRO #### [facility] [address] [place] [address] Dr. Manfred Brooks RBC 4.14 106/ul Critically low 4.20-5.40 [facility] Comment on above: Performed By: #### Nikolas HOGAN UMICRO #### [facility] [address] [place] [address] Dr. Manfred Brooks WBC 7.0 103/ul Normal 4.0-11.0 [facility] Comment on above: Performed By: #### Nikolas HOGAN, UMICRO #### [facility] [address] [place] [address] Dr. Manfred Brooks DIGOXINon 04-21-2022 DIG <0.2 Critically low 0.9-2.0 [facility] Comment on above: Performed By: #### B MP, HSTROPN, CK #### [facility] [address] [address] [address] Manfred Brooks ECHOCARDIO M/2D COMPLETEon 0 04-21-2022 ECHOCARDIO M/2D COMPLETE Patient: BETTY CAMARENA Exam Date: 04/21/2022 : 1940 Gender:F Ordering : DR CAM BATES . Admission #: [id number] Family : DR GLORIA SALCEDO . Order #: [id number] CLICK HERE TO VIEW EXAM ECHOCARDIOGRAM REPORT [...] M.D. on 04/21/2022 at 19:20 Normal [facility] PROF 14(COMP METB)on 022 Albumin [Mass/Vol] 3.4 g/dL Normal 3.4-5.0 [facility] Comment on above: Performed By: #### B VP OF CUSTOMER EXPERIENCE STRATEGY, CMP #### [facility] [address] [address] [address] aMnfred Brooks Albumin/Globulin [Mass ratio] 1.2 {ratio} Normal [facility] Comment on above: Performed By: #### B VP OF CUSTOMER EXPERIENCE STRATEGY, CMP #### [facility] [address] [address] [address] Manfred Brooks ALP [Catalytic activity/Vol] 62 U/L Normal 46-116 [facility] Comment on above: Performed By: #### B VP OF CUSTOMER EXPERIENCE STRATEGY, CMP #### [facility] [address] [place] [address] Dr. Manfred Brooks ALT [Catalytic activity/Vol] 24 U/L Normal 14-59 [facility] Comment on above: Performed By: #### B VP OF CUSTOMER EXPERIENCE STRATEGY, CMP #### [facility] [address] [address] [address] Manfred Brooks Anion gap [Moles/Vol] 10.4 mmol/L Normal [facility] Comment on above: Performed By: #### B VP OF CUSTOMER EXPERIENCE STRATEGY, CMP #### [facility] [address] [address] [address] Manfred Brooks AST [Catalytic activity/Vol] 9 U/L Critically low 15-37 [facility] Comment on above: Performed By: #### B VP OF CUSTOMER EXPERIENCE STRATEGY, CMP #### [facility] [address] [address] [address] Manfred Brooks Bilirubin [Mass/Vol] 0.3 mg/dL Normal 0.2-1.0 [facility] Comment on above: Performed By: #### B VP OF CUSTOMER EXPERIENCE STRATEGY, CMP #### [facility] [address] [address] [address] Manfred Brooks Calcium [Mass/Vol] 8.5 mg/dL Normal 8.5-10.1 [facility] Comment on above: Performed By: #### B VP OF CUSTOMER EXPERIENCE STRATEGY, CMP #### [facility] [address] [address] [address] Manfred Brooks Chloride [Moles/Vol] 109 mmol/L Critically high 98-107 [facility] Comment on above: Performed By: #### B VP OF CUSTOMER EXPERIENCE STRATEGY, CMP #### [facility] [address] [place] [address] Dr. Manfred Brooks CO2 [Moles/Vol] 28.5 mmol/L Normal 21.0-32.0 [facility] Comment on above: Performed By: #### B VP OF CUSTOMER EXPERIENCE STRATEGY, CMP #### [facility] [address] [place] [address] Dr. Manfred Brooks Creatinine [Mass/Vol] 0.83 mg/dL Normal 0.55-1.02 [facility] Comment on above: Performed By: #### B VP OF CUSTOMER EXPERIENCE STRATEGY, CMP #### [facility] [address] [place] [address] Dr. Manfred Brooks EGFR-AF BELIZEAN >60 Normal >=60 [facility] Comment on above: Performed By: #### B VP OF CUSTOMER EXPERIENCE STRATEGY, CMP #### [facility] [address] [place] [address] Dr. Manfred Brooks EGFR-NON AF BELIZEAN >60 Normal >=60 [facility] Comment on above: Performed By: #### B VP OF CUSTOMER EXPERIENCE STRATEGY, CMP #### [facility] [address] [place] [address] Dr. Manfred Brooks Globulin (S) [Mass/Vol] 2.8 g/dL Normal [facility] Comment on above: Performed By: #### B VP OF CUSTOMER EXPERIENCE STRATEGY, CMP #### [facility] [address] [place] [address] Dr. Manfred Brooks Glucose [Mass/Vol] 107 mg/dL Critically high 74-106 [facility] Comment on above: Performed By: #### B VP OF CUSTOMER EXPERIENCE STRATEGY, CMP #### [facility] [address] [place] [address] Dr. Manfred Brooks Potassium [Moles/Vol] 3.9 mmol/L Normal 3.5-5.1 [facility] Comment on above: Performed By: #### B VP OF CUSTOMER EXPERIENCE STRATEGY, CMP #### [facility] [address] [place] [address] Dr. Manfred Brooks Protein [Mass/Vol] 6.2 g/dL Critically low 6.4-8.2 [facility] Comment on above: Performed By: #### B VP OF CUSTOMER EXPERIENCE STRATEGY, CMP #### [facility] [address] [place] [address] Dr. Manfred Brooks Sodium [Moles/Vol] 144 mmol/L Normal 136-145 [facility] Comment on above: Performed By: #### B VP OF CUSTOMER EXPERIENCE STRATEGY, CMP #### [facility] [address] [place] [address] Dr. Manfred Brooks Urea nitrogen [Mass/Vol] 23.0 mg/dL Critically high 7.0-18.0 [facility] Comment on above: Performed By: #### B VP OF CUSTOMER EXPERIENCE STRATEGY, CMP #### [facility] [address] [place] [address] Dr. Manfred Brooks Urea nitrogen/Creatinine [Mass ratio] 27.7 mg/mg Normal [facility] Comment on above: Performed By: #### B VP OF CUSTOMER EXPERIENCE STRATEGY, CMP #### [facility] [address] [place] [address] Dr. Manfred Brooks BNPon 04-20-2022 Natriuretic peptide B (Bld) [Mass/Vol] 199.0 pg/mL Normal <=1,800.0 [facility] Comment on above: Performed By: #### ANU BENOITRO #### [facility] [address] [place] [address] Dr. Manfred Brooks CARDIAC TELMA 3-6on 2 CK [Catalytic activity/Vol] 55 U/L Normal 26-192 [facility] Comment on above: Performed By: #### Nikolas HOGAN UMICRO #### [facility] [address] [place] [address] Dr. Manfred Brooks CK.MB [Mass/Vol] 1.69 ng/mL Normal <=3.60 [facility] Comment on above: Performed By: #### Nikolas HOGAN UMICRO #### [facility] [address] [place] [address] Dr. Manfred Brooks HSTROP 37.5 pg/mL Normal 4.0-51.3 [facility] Comment on above: Result Comment: CUT- OFF POINTS HAVE BEEN ESTABLISHED BASED ON THE FOURTH UNIVERSAL DEFINITIONS OF MYOCARDIAL INFARCTION. THE UPPER REFERENCE LIMIT (URL) OF TROPONIN, DEFINED THE 99TH PERCENTILE OF cTnI DISTRIBUTION IN A REFERENCE POPULATION, HAS BEEN CONFIRMED THE DECISION THRESHOLD FOR [place] DIAGNOSIS. Performed By: #### E JAMILAR, UMICRO #### [facility] [address] [place] [address] Dr. Manfred Brooks CK [Catalytic activity/Vol] 54 U/L Normal 26-192 [facility] Comment on above: Performed By: #### E RUR, UMICRO #### [facility] [address] [place] [address] Dr. Manfred LE.MB [Mass/Vol] 1.12 ng/mL Normal <=3.60 [facility] Comment on above: Performed By: #### E RUR, UMICRO #### [facility] [address] [place] [address] Dr. Manfred Brooks HSTROP 27.5 pg/mL Normal 4.0-51.3 [facility] Comment on above: Result Comment: CUT- OFF POINTS HAVE BEEN ESTABLISHED BASED ON THE FOURTH UNIVERSAL DEFINITIONS OF MYOCARDIAL INFARCTION. THE UPPER REFERENCE LIMIT (URL) OF TROPONIN, DEFINED THE 99TH PERCENTILE OF cTnI DISTRIBUTION IN A REFERENCE POPULATION, HAS BEEN CONFIRMED THE DECISION THRESHOLD FOR [place] DIAGNOSIS. Performed By: #### E JAMILAR, UMICRO #### [facility] [address] [place] [address] Dr. Manfred Brooks CARDIAC TELMA ADMITon 022 CK [Catalytic activity/Vol] 64 U/L Normal 26-192 [facility] Comment on above: Performed By: #### E RUR, UMICRO #### [facility] [address] [place] [address] Dr. Manfred LE.MB [Mass/Vol] 1.12 ng/mL Normal <=3.60 [facility] Comment on above: Performed By: #### E RUR, UMICRO #### [facility] [address] [place] [address] Dr. Manfred Brooks HSTROP 13.4 pg/mL Normal 4.0-51.3 [facility] Comment on above: Result Comment: CUT- OFF POINTS HAVE BEEN ESTABLISHED BASED ON THE FOURTH UNIVERSAL DEFINITIONS OF MYOCARDIAL INFARCTION. THE UPPER REFERENCE LIMIT (URL) OF TROPONIN, DEFINED THE 99TH PERCENTILE OF cTnI DISTRIBUTION IN A REFERENCE POPULATION, HAS BEEN CONFIRMED THE DECISION THRESHOLD FOR [place] DIAGNOSIS. Performed By: #### MILTON BENOIT #### [facility] [address] [place] [address] Dr. Manfred Brooks MAHOGANY 38 ng/mL Normal 9-82 [facility] Comment on above: Performed By: #### MILTON BENOIT #### [facility] [address] [place] [address] Dr. Manfred Brooks CBC AUTO DIFFon 04-20-2022 BASO # 0.1 103/ul Normal 0.0-0.1 [facility] Comment on above: Performed By: #### MILTON BENOIT #### [facility] [address] [place] [address] Dr. Manfred Brooks Basophils/100 WBC (Bld) 1.0 % Normal 0.2-2.0 [facility] Comment on above: Performed By: #### MILTON BENOIT #### [facility] [address] [place] [address] Dr. Manfred Brooks EO # 0.2 103/ul Normal 0.0-0.7 [facility] Comment on above: Performed By: #### MILTON BENOIT #### [facility] [address] [place] [address] Dr. Manfred Brooks Eosinophils/100 WBC (Bld) 1.8 % Normal 0.9-7.0 [facility] Comment on above: Performed By: #### MILTON BENOIT #### [facility] [address] [place] [address] Dr. Manfred Brooks Erythrocyte distribution width (RBC) [Ratio] 14.2 % Normal 11.0-15.0 [facility] Comment on above: Performed By: #### MILTON BENOIT #### [facility] [address] [place] [address] Dr. Manfred Brooks Hematocrit (Bld) [Volume fraction] 43.5 % Normal 36.0-48.0 [facility] Comment on above: Performed By: #### E RUR, UMICRO #### [facility] [address] [place] [address] Dr. Manfred Brooks Hemoglobin (Bld) [Mass/Vol] 13.9 g/dL Normal 12.0-16.0 [facility] Comment on above: Performed By: #### E RUR, UMICRO #### [facility] [address] [place] [address] Dr. Manfred Brooks IG # 0.03 10e3/ul Normal 0.00-0.03 [facility] Comment on above: Performed By: #### Nikolas HOGAN, UMICRO #### [facility] [address] [place] [address] Dr. Manfred Brooks IG % 0.3 % Normal 0.0-0.5 [facility] Comment on above: Performed By: #### Nikolas HOGAN, UMICRO #### [facility] [address] [place] [address] Dr. Manfred Brooks LYMPH # 2.6 103/ul Normal 1.2-3.8 [facility] Comment on above: Performed By: #### Nikolas HOGAN, UMICRO #### [facility] [address] [place] [address] Dr. Manfred Brooks Lymphocytes/100 WBC (Bld) 29.8 % Normal 20.5-60.0 [facility] Comment on above: Performed By: #### E RUR, UMICRO #### [facility] [address] [place] [address] Dr. Manfred Brooks MANUAL DIFF REQ NO Normal [facility] Comment on above: Performed By: #### E RUR, UMICRO #### [facility] [address] [place] [address] Dr. Manfred Brooks MCH (RBC) [Entitic mass] 29.7 pg Normal 26.7-34.0 [facility] Comment on above: Performed By: #### ANU BENOITRO #### [facility] [address] [place] [address] Dr. Manfred Brooks MCHC (RBC) [Mass/Vol] 32.0 g/dL Normal 29.9-35.2 [facility] Comment on above: Performed By: #### ANU BENOITRO #### [facility] [address] [place] [address] Dr. Manfred Brooks MCV (RBC) [Entitic vol] 92.9 fL Normal 81.0-99.0 [facility] Comment on above: Performed By: #### ANU BENOITRO #### [facility] [address] [place] [address] Dr. Manfred Brooks MONO # 0.8 103/ul Normal 0.3-0.8 [facility] Comment on above: Performed By: #### ANU BENOITRO #### [facility] [address] [place] [address] Dr. Manfred Brooks Monocytes/100 WBC (Bld) 9.6 % Normal 1.7-12.0 [facility] Comment on above: Performed By: #### ANU BENOITRO #### [facility] [address] [place] [address] Dr. Manfred Brooks NEUT # 5.0 103/ul Normal 1.4-6.5 [facility] Comment on above: Performed By: #### ANU BENOITRO #### [facility] [address] [place] [address] Dr. Manfred Brooks Neutrophils/100 WBC (Bld) 57.5 % Normal 43.0-75.0 [facility] Comment on above: Performed By: #### ANU BENOITRO #### [facility] [address] [place] [address] Dr. Manfred Brooks Platelet mean volume (Bld) [Entitic vol] 10.1 fL Normal 9.5-13.5 [facility] Comment on above: Performed By: #### ANU BENOITRO #### [facility] [address] [address] [address] Manfred Brooks PLT 354 103/ul Normal 150-450 [facility] Comment on above: Performed By: #### MILTON BENOIT #### [facility] [address] [address] [address] Manfred Brooks RBC 4.68 106/ul Normal 4.20-5.40 [facility] Comment on above: Performed By: #### MILTON BENOIT #### [facility] [address] [address] [address] Manfred Brooks WBC 8.8 103/ul Normal 4.0-11.0 [facility] Comment on above: Performed By: #### MILTON BENOIT #### [facility] [address] [place] [address] Dr. Manfred Brooks CULTURE URINEon 04-20-2022 CULTURE URINE Culture Observations : LIGHT GROWTH OF MIXED GENITAL BETO. NO POTENTIAL PATHOGENS SEEN. Normal [facility] Comment on above: Performed By: #### B MP, HSTROPN, CK #### [facility] [address] [address] [address] Manfred Brooks [facility] SARS-CoV-2 (COVID-19) RNA DAMIR+probe Ql (Unsp spec) Not detected Normal NOT DETECTED [facility] Comment on above: Result Comment: When diagnostic [...] for this test is supported by the [place] of Health and Human Service's declaration that [...] By: #### B JAMILAH DARNELL, REY #### [facility] [address] [place] [address] Dr. Manfred Brooks D-DIMERon 04-20-2022 D-DIMER 0.35 mg/L FEU Normal <=0.59 [facility] Comment on above: Performed By: #### MILTON BENOIT #### [facility] [address] [place] [address] Dr. Manfred Brooks D-DIMER COMMENTS SEE BELOW Normal [facility] Comment on above: Result Comment: Incr eases [...] hospitalization. Performed By: #### MILTON BENOIT #### [facility] [address] [place] [address] Dr. Manfred Brooks PROF CHEM 8 (BAS METB)on Anion gap [Moles/Vol] 14.1 mmol/L Normal [facility] Comment on above: Performed By: #### ANU BENOITRO #### [facility] [address] [place] [address] Dr. Manfred Brooks Calcium [Mass/Vol] 9.3 mg/dL Normal 8.5-10.1 [facility] Comment on above: Performed By: #### ANU BENOITRO #### [facility] [address] [place] [address] Dr. Manfred Brooks Chloride [Moles/Vol] 107 mmol/L Normal 98-107 [facility] Comment on above: Performed By: #### MILTON BENOIT #### [facility] [address] [address] [address] Manfred Brooks CO2 [Moles/Vol] 27.8 mmol/L Normal 21.0-32.0 [facility] Comment on above: Performed By: #### ANU BENOITRO #### [facility] [address] [address] [address] Manfred Brooks Creatinine [Mass/Vol] 0.89 mg/dL Normal 0.55-1.02 [facility] Comment on above: Performed By: #### Nikolas HOGAN, ANURO #### [facility] [address] [address] [address] Manfred Brooks EGFR-AF BELIZEAN >60 Normal >=60 [facility] Comment on above: Performed By: #### ANU BENOITRO #### [facility] [address] [place] [address] Dr. Manfred Brooks EGFR-NON AF BELIZEAN >60 Normal >=60 [facility] Comment on above: Performed By: #### ANU BENOITRO #### [facility] [address] [address] [address] Manfred Brooks Glucose [Mass/Vol] 129 mg/dL Critically high 74-106 [facility] Comment on above: Performed By: #### ANU BENOITRO #### [facility] [address] [place] [address] Dr. Manfred Brooks Potassium [Moles/Vol] 3.9 mmol/L Normal 3.5-5.1 [facility] Comment on above: Performed By: #### ANU BENOITRO #### [facility] [address] [address] [address] Manfred Brooks Sodium [Moles/Vol] 145 mmol/L Normal 136-145 [facility] Comment on above: Performed By: #### ANU BENOITRO #### [facility] [address] [address] [address] Manfred Brooks Urea nitrogen [Mass/Vol] 28.0 mg/dL Critically high 7.0-18.0 [facility] Comment on above: Performed By: #### E MILTON HOGAN #### [facility] [address] [place] [address] Dr. Manfred Brooks Urea nitrogen/Creatinine [Mass ratio] 31.5 mg/mg Normal [facility] Comment on above: Performed By: #### E MILTON HOGAN #### [facility] [address] [place] [address] Dr. Manfred Brooks T4on 04-20-2022 T4 [Mass/Vol] 8.10 ug/dL Normal 4.80-13.90 [facility] Comment on above: Performed By: #### B VP OF CUSTOMER EXPERIENCE STRATEGY, CMP #### [facility] [address] [place] [address] Dr. Manfred Brooks TSHon 04-20-2022 TSH 0.918 uIU/mL Normal 0.358-3.740 [facility] Comment on above: Performed By: #### B VP OF CUSTOMER EXPERIENCE STRATEGY, CMP #### [facility] [address] [place] [address] Dr. Manfred Brooks UA RANDOM W/MICROSCOPICon BACTERIA TRACE Abnormal NONE SEEN [facility] Comment on above: Performed By: #### C VDTBH #### [facility] [address] [place] [address] Dr. Manfred Brooks Bilirubin Ql (U) Negative Normal NEGATIVE [facility] Comment on above: Performed By: #### C VDTBH #### [facility] [address] [place] [address] Dr. Manfred Brooks CAST SEEN Abnormal NONE SEEN [facility] Comment on above: Performed By: #### C VDTBH #### [facility] [address] [place] [address] Dr. Manfred Brooks Clarity (U) CLEAR Normal CLEAR [facility] Comment on above: Performed By: #### C VDTBH #### [facility] [address] [place] [address] Dr. Manfred Brooks Color (U) LT. YELLOW Normal YELLOW [facility] Comment on above: Performed By: #### C VDTBH #### [facility] [address] [address] [address] Manfred Brooks Crystals LM Nom (Urine sed) NONE SEEN Normal NONE SEEN [facility] Comment on above: Performed By: #### C VDTBH #### [facility] [address] [place] [address] Dr. Manfred Brooks Epithelial cells LM Ql (Urine sed) MODERATE Abnormal NONE SEEN /RARE [facility] Comment on above: Performed By: #### C VDTBH #### [facility] [address] [place] [address] Dr. Manfred Brooks Glucose Ql (U) Negative Normal NEGATIVE [facility] Comment on above: Performed By: #### C VDTBH #### [facility] [address] [place] [address] Dr. Manfred Brooks Hemoglobin Ql (U) Negative Normal NEGATIVE [facility] Comment on above: Performed By: #### C VDTBH #### [facility] [address] [place] [address] Dr. Manfred Brooks HYALINE CAST RARE Normal [facility] Comment on above: Performed By: #### C VDTBH #### [facility] [address] [place] [address] Dr. Manfred Brooks Ketones Ql (U) Negative Normal NEGATIVE [facility] Comment on above: Performed By: #### C VDTBH #### [facility] [address] [place] [address] Dr. Manfred Brooks LEUKOCYTES TRACE Abnormal NEGATIVE [facility] Comment on above: Performed By: #### C VDTBH #### [facility] [address] [place] [address] Dr. Manfred Brooks MUCOUS TRACE Abnormal NONE SEEN [facility] Comment on above: Performed By: #### C VDTBH #### [facility] [address] [place] [address] Dr. Manfred Brooks Nitrite Ql (U) Negative Normal NEGATIVE [facility] Comment on above: Performed By: #### C VDTBH #### [facility] [address] [place] [address] Dr. Manfred Brooks pH (U) 5.0 [pH] Normal 5-9 [facility] Comment on above: Performed By: #### C VDTBH #### [facility] [address] [address] [address] Manfred Brooks RBC NONE SEEN Abnormal 0-2 [facility] Comment on above: Performed By: #### C VDTBH #### [facility] [address] [address] [address] Manfred Brooks SPEC GRAVITY >=1.030 Abnormal 1.005-<=1.025 [facility] Comment on above: Performed By: #### C VDTBH #### [facility] [address] [address] [address] Manfred Brooks UA PROTEIN Negative Normal NEGATIVE/ TRACE [facility] Comment on above: Performed By: #### C VDTBH #### [facility] [address] [address] [address] Manfred Brooks Urobilinogen Qn (U) 0.2 {Antionette'U}/dL Normal 0.2 - 1. 0 [facility] Comment on above: Performed By: #### C VDTBH #### [facility] [address] [address] [address] Manfred Brooks WBC 2-5 Abnormal NONE SEEN [facility] Comment on above: Performed By: #### C VDTBH #### [facility] [address] [address] [address] Manfred Brooks XR CHEST 1 Von [...] CHE JACOBS Date: 2022-04-20 07:57 Normal [facility] INSULINon 02-05-2022 Insulin 21.9 uIU/mL Normal 2.6-24.9 [facility] Comment on above: Performed By: #### C VDTBH #### [facility] [address] [place] [address] Dr. Manfred Brooks BNPon 02-04-2022 Natriuretic peptide B (Bld) [Mass/Vol] 197.0 pg/mL Normal <=1,800.0 [facility] Comment on above: Performed By: #### E MILTON HOGAN #### [facility] [address] [place] [address] Dr. Manfred Brooks CBC AUTO DIFFon 02-04-2022 BASO # 0.1 103/ul Normal 0.0-0.1 [facility] Comment on above: Performed By: #### C BC #### [facility] [address] [place] [address] Dr. Manfred Brooks Basophils/100 WBC (Bld) 1.2 % Normal 0.2-2.0 [facility] Comment on above: Performed By: #### C BC #### [facility] [address] [place] [address] Dr. Manfred Brooks EO # 0.1 103/ul Normal 0.0-0.7 [facility] Comment on above: Performed By: #### C BC #### [facility] [address] [place] [address] Dr. Manfred Brooks Eosinophils/100 WBC (Bld) 2.1 % Normal 0.9-7.0 [facility] Comment on above: Performed By: #### C BC #### [facility] [address] [place] [address] Dr. Manfred Brooks Erythrocyte distribution width (RBC) [Ratio] 14.5 % Normal 11.0-15.0 [facility] Comment on above: Performed By: #### C BC #### [facility] [address] [place] [address] Dr. Manfred Brooks Hematocrit (Bld) [Volume fraction] 42.4 % Normal 36.0-48.0 [facility] Comment on above: Performed By: #### C BC #### [facility] [address] [place] [address] Dr. Manfred Brooks Hemoglobin (Bld) [Mass/Vol] 13.4 g/dL Normal 12.0-16.0 [facility] Comment on above: Performed By: #### C BC #### [facility] [address] [place] [address] Dr. Manfred Brooks IG # 0.02 10e3/ul Normal 0.00-0.03 [facility] Comment on above: Performed By: #### C BC #### [facility] [address] [place] [address] Dr. Manfred Brooks IG % 0.3 % Normal 0.0-0.5 [facility] Comment on above: Performed By: #### C BC #### [facility] [address] [place] [address] Dr. Manfred Brooks LYMPH # 2.2 103/ul Normal 1.2-3.8 [facility] Comment on above: Performed By: #### C BC #### [facility] [address] [place] [address] Dr. Manfred Brooks Lymphocytes/100 WBC (Bld) 35.6 % Normal 20.5-60.0 [facility] Comment on above: Performed By: #### C BC #### [facility] [address] [place] [address] Dr. Manfred Brooks MANUAL DIFF REQ NO Normal [facility] Comment on above: Performed By: #### C BC #### [facility] [address] [place] [address] Dr. Manfred Brooks MCH (RBC) [Entitic mass] 29.6 pg Normal 26.7-34.0 [facility] Comment on above: Performed By: #### C BC #### [facility] [address] [place] [address] Dr. Manfred Brooks MCHC (RBC) [Mass/Vol] 31.6 g/dL Normal 29.9-35.2 [facility] Comment on above: Performed By: #### C BC #### [facility] [address] [place] [address] Dr. Manfred Brooks MCV (RBC) [Entitic vol] 93.8 fL Normal 81.0-99.0 [facility] Comment on above: Performed By: #### C BC #### [facility] [address] [place] [address] Dr. Manfred Brooks MONO # 0.6 103/ul Normal 0.3-0.8 [facility] Comment on above: Performed By: #### C BC #### [facility] [address] [place] [address] Dr. Manfred Brooks Monocytes/100 WBC (Bld) 10.4 % Normal 1.7-12.0 [facility] Comment on above: Performed By: #### C BC #### [facility] [address] [place] [address] Dr. Manfred Brooks NEUT # 3.1 103/ul Normal 1.4-6.5 [facility] Comment on above: Performed By: #### C BC #### [facility] [address] [place] [address] Dr. Manfred Brooks Neutrophils/100 WBC (Bld) 50.4 % Normal 43.0-75.0 [facility] Comment on above: Performed By: #### C BC #### [facility] [address] [place] [address] Dr. Manfred Brooks Platelet mean volume (Bld) [Entitic vol] 10.1 fL Normal 9.5-13.5 [facility] Comment on above: Performed By: #### C BC #### [facility] [address] [place] [address] Dr. Manfred Brooks PLT 310 103/ul Normal 150-450 [facility] Comment on above: Performed By: #### C BC #### [facility] [address] [place] [address] Dr. Manfred Brooks RBC 4.52 106/ul Normal 4.20-5.40 [facility] Comment on above: Performed By: #### C BC #### [facility] [address] [place] [address] Dr. Manfred Brooks WBC 6.1 103/ul Normal 4.0-11.0 [facility] Comment on above: Performed By: #### C BC #### [facility] [address] [address] [address] Manfred Brooks FREE THYROXINE INDEX T7on FTI 2.16 Normal [facility] Comment on above: Performed By: #### B JAMILAH DARNELL, CK #### [facility] [address] [place] [address] Dr. Manfred Brooks T3U 36.0 % Normal 23.5-40.5 [facility] Comment on above: Performed By: #### B JAMILAH DARNELL, CK #### [facility] [address] [place] [address] Dr. Manfred Brooks T4 [Mass/Vol] 6.00 ug/dL Normal 4.80-13.90 [facility] Comment on above: Performed By: #### B JAMILAH DARNELL, CK #### [facility] [address] [place] [address] Dr. Manfred Brooks GLYCOHEMOGLOBIN A1Con 2021 ADA RECOMMENDATION SEE BELOW Normal [facility] Comment on above: Result Comment: ADA RECOMMENDED LIMIT 4.0 - 6.0 ADA THERAPEUTIC TARGET < 7.0 ACTION SUGGESTED > 7.0 Performed By: #### B JAMILAH DARNELL, CK #### [facility] [address] [place] [address] Dr. Manfred Brooks Glucose [Mass/Vol] 114 mg/dL Normal [facility] Comment on above: Performed By: #### B JAMILAH DARNELL, CK #### [facility] [address] [place] [address] Dr. Manfred Brooks HbA1c (Bld) [Mass fraction] 5.6 % Normal 4.5-6.2 [facility] Comment on above: Performed By: #### B JAMILAH DARNELL, CK #### [facility] [address] [place] [address] Dr. Manfred Brooks IRONon 02-04-2022 Iron [Mass/Vol] 79.0 ug/dL Normal 50.0-170.0 [facility] Comment on above: Performed By: #### MILTON BENOIT #### [facility] [address] [place] [address] Dr. Manfred Brooks LIPID PROFILEon 02-04-2022 CHOL-HDL RATIO NORM SEE BELOW Normal [facility] Comment on above: Result Comment: 3.3 - 4.4 LOW RISK 4.4 - 7.1 AVERAGE RISK 7.1 - 11.0 MODERATE RISK >11.0 HIGH RISK Performed By: #### MILTON BENOIT #### [facility] [address] [place] [address] Dr. Manfred Brooks Cholesterol [Mass/Vol] 134 mg/dL Normal <=200 [facility] Comment on above: Performed By: #### MILTON BENOIT #### [facility] [address] [place] [address] Dr. Manfred Brooks Cholesterol in HDL [Mass/Vol] 41 mg/dL Normal 40-60 [facility] Comment on above: Performed By: #### MILTON BENOIT #### [facility] [address] [place] [address] Dr. Manfred Brooks Cholesterol in LDL [Mass/Vol] 62.0 mg/dL Normal [facility] Comment on above: Performed By: #### MILTON BENOIT #### [facility] [address] [place] [address] Dr. Manfred Brooks Cholesterol.total/Ch olesterol in HDL [Mass ratio] 3.3 {ratio} Normal [facility] Comment on above: Performed By: #### MILTON BENOIT #### [facility] [address] [place] [address] Dr. Manfred Brooks HDL NORMAL > or = 60 mg/dl - LO W CARDIOVASCULAR RISK <40 mg/dl - HIGH CARDIOVASCULAR RISK Normal [facility] Comment on above: Performed By: #### MILTON BENOIT #### [facility] [address] [place] [address] Dr. Manfred Brooks LDL CALC NORMAL SEE BELOW Normal [facility] Comment on above: Result Comment: <100 mg/dl OPTIMAL 100 - 129 mg/dl NEAR OR ABOVE OPTIMAL 130 - 159 mg/dl BORDERLINE HIGH 160 - 189 mg/dl HIGH >190 mg/dl VERY HIGH Performed By: #### E ANU HOGANRO #### [facility] [address] [address] [address] Manfred Brooks Triglyceride [Mass/Vol] 155 mg/dL Critically high <=150 [facility] Comment on above: Performed By: #### ANU BENOITRO #### [facility] [address] [address] [address] Manfred Brooks VLDL CALC 31.0 mg/dL Normal [facility] Comment on above: Performed By: #### MILTON BENOIT #### [facility] [address] [address] [address] Manfred Brooks PROF 14(COMP METB)on 022 Albumin [Mass/Vol] 3.9 g/dL Normal 3.4-5.0 [facility] Comment on above: Performed By: #### B MANN HSTROPN, CK #### [facility] [address] [place] [address] Dr. Manfred Brooks Albumin/Globulin [Mass ratio] 1.2 {ratio} Normal [facility] Comment on above: Performed By: #### B MANN HSTROPN, CK #### [facility] [address] [place] [address] Dr. Manfred Brooks ALP [Catalytic activity/Vol] 63 U/L Normal 46-116 [facility] Comment on above: Performed By: #### B MANN HSTROPN, CK #### [facility] [address] [place] [address] Dr. Mafnred Brooks ALT [Catalytic activity/Vol] 25 U/L Normal 14-59 [facility] Comment on above: Performed By: #### B MANN HSTROPN, CK #### [facility] [address] [place] [address] Dr. Manfred Brooks Anion gap [Moles/Vol] 10.8 mmol/L Normal [facility] Comment on above: Performed By: #### B MANN HSTROPN, CK #### [facility] [address] [address] [address] Manfred Brooks AST [Catalytic activity/Vol] 14 U/L Critically low 15-37 [facility] Comment on above: Performed By: #### B MP, HSTROPN, CK #### [facility] [address] [address] [address] Manfred Brooks Bilirubin [Mass/Vol] 0.6 mg/dL Normal 0.2-1.0 [facility] Comment on above: Performed By: #### B MP, HSTROPN, CK #### [facility] [address] [address] [address] Manfred Brooks Calcium [Mass/Vol] 8.6 mg/dL Normal 8.5-10.1 [facility] Comment on above: Performed By: #### B MP, HSTROPN, CK #### [facility] [address] [place] [address] Dr. Manfred Brooks Chloride [Moles/Vol] 104 mmol/L Normal 98-107 [facility] Comment on above: Performed By: #### B MP, HSTROPN, CK #### [facility] [address] [address] [address] Manfred Brooks CO2 [Moles/Vol] 31.5 mmol/L Normal 21.0-32.0 [facility] Comment on above: Performed By: #### B MP, HSTROPN, CK #### [facility] [address] [address] [address] Manfred Brooks Creatinine [Mass/Vol] 0.67 mg/dL Normal 0.55-1.02 [facility] Comment on above: Performed By: #### B MP, HSTROPN, CK #### [facility] [address] [place] [address] Dr. Manfred Brooks EGFR-AF BELIZEAN >60 Normal >=60 [facility] Comment on above: Performed By: #### B MP, HSTROPN, CK #### [facility] [address] [address] [address] Manfred Brooks EGFR-NON AF BELIZEAN >60 Normal >=60 [facility] Comment on above: Performed By: #### B MP, HSTROPN, CK #### [facility] [address] [address] [address] Manfred Brooks Globulin (S) [Mass/Vol] 3.2 g/dL Normal [facility] Comment on above: Performed By: #### B MP, HSTROPN, CK #### [facility] [address] [address] [address] Manfred Brooks Glucose [Mass/Vol] 102 mg/dL Normal 74-106 [facility] Comment on above: Performed By: #### B MP, HSTROPN, CK #### [facility] [address] [place] [address] Dr. Manfred Brooks Potassium [Moles/Vol] 4.3 mmol/L Normal 3.5-5.1 [facility] Comment on above: Performed By: #### B MP, HSTROPN, CK #### [facility] [address] [address] [address] Manfred Brooks Protein [Mass/Vol] 7.1 g/dL Normal 6.1-8.2 [facility] Comment on above: Performed By: #### B MP, HSTROPN, CK #### [facility] [address] [place] [address] Dr. Manfred Brooks Sodium [Moles/Vol] 142 mmol/L Normal 136-145 [facility] Comment on above: Performed By: #### B MP, HSTROPN, CK #### [facility] [address] [place] [address] Dr. Manfred Brooks Urea nitrogen [Mass/Vol] 19.0 mg/dL Critically high 7.0-18.0 [facility] Comment on above: Performed By: #### B MP, HSTROPN, CK #### [facility] [address] [place] [address] Dr. Manfred Brooks Urea nitrogen/Creatinine [Mass ratio] 28.4 mg/mg Normal [facility] Comment on above: Performed By: #### B MP, HSTROPN, CK #### [facility] [address] [address] [address] Manfred Brooks TSHon 02-04-2022 TSH 0.317 uIU/mL Critically low 0.470-4.[address] [facility] Comment on above: Performed By: #### B JAMILAH DARNELL CK #### [facility] [address] [address] [address] Manfred Brooks TSH RANGE SEE BELOW Normal [facility] Comment on above: Result Comment: <0.3 4 UIU/ml HYPERTHYROID 0.34-5.60 UIU/ml EUTHYROID >5.60 UIU/ml HYPOTHYROID Performed By: #### B JAMILAH DARNELL CK #### [facility] [address] [place] [address] Dr. Manfred Brooks VITAMIN D 25 OHon 02-04-2022 VIT D 25-OH 35.9 ng/mL Normal [facility] Comment on above: Performed By: #### MILTON BENOIT #### [facility] [address] [place] [address] Dr. Manfred Brooks VIT D RANGES SEE BELOW Normal [facility] Comment on above: Result Comment: <20 ng/mL Vit D deficient 20 - <30 ng/mL Vit D insufficient 30 - 100 ng/mL Vit D sufficient >100 ng/mL Potential Toxicity Performed By: #### MILTON BENOIT #### [facility] [address] [place] [address] Dr. Manfred Brooks Ambulatory Clinical Summaryo n 04-16-2021 Ambulatory Clinical Summary {[id number] Normal [facility] General Surgery Office/Clini c Noteon 04-16-2021 General [...] JEM Acevedo Only if needed [address] [place] [address]- Additional Instructions: Problem List/Past Medical [...] (COVID-19) mRNA BNT-162b2 vax 11/30/2020 Recorded Normal [facility] Comment on above: Result Comment: Elec tronically Signed By: IZZY REYES, Salvatore River\Date and Time Signed: 04/16/21 13:20 EDT Pathology Noteon 04-12-2021 Pathology Note [id number]. 00CD:127 Normal [facility] Ambulatory Clinical Summaryo n 04-09-2021 Ambulatory Clinical Summary {[id number] Normal [facility] Provider Letter [facility] Provider Letter [facility] March 29, 2021 Cam Bates, [address] [place] [address] [place] [address] Re: BETTY CAMARENA Date of : 1940 Thank you for your referral of Betty Camarena who was seen on consultation on March 21, 2021, for two moles on right cheek. An excisional biopsy is planned. I have enclosed my consultation note for your review. I will be happy to follow Betty. Sincerely, Salvatore Moore MD General Surgery [facility] Ambulatory Clinical Summaryo n 03-21-2021 Ambulatory Clinical Summary {[id number] [facility] Patient Educationon 03-21-20 21 Patient Education [...] your health care provider or diet and child nutrition manager (dietitian). This may include: ? Eating fewer [...] weight koehler (more content not included)... Normal [facility] Physician Referralon 021 Physician Referral [phone] [id number]:[id number] Normal [facility] Cardiovascular Lab Reporton 04-17-2020 Cardiovascular Lab Report [facility] Patient Name: Sarah [facility] MR #: [id number] Physician: Denisa Nevarez Department of Navya Alejandre Medicine Service Date: 04/16/2020 Division of Birthdate: 1940 Cardiology Room #: Adult Cardiovascular Services [place] [address] Cardiovascular Laboratory Report INDICATION: The patient is [...] signed informed consent. 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 The left wrist area was prepped and draped in the usual fashion. Modified Raleigh's test was favorable on the left. Access in the left radial artery was obtained using micropuncture technique and ultrasound guidance. A 6-Mongolian x 11 cm Hydrophilic sheath was advanced. Verapamil was given through the sheath and heparin was administered intravenously. The JR4 diagnostic catheter was advanced over the angled Glidewire into the left ventricular cavity and used to perform left heart catheterization with measurement of pressures. Pullback across the aortic valve was performed with measurement of pressures. Bilateral selective coronary angiography was then performed using 6-Mongolian JL4 and JR4 diagnostic catheters. Catheters were [...] 40% proximal stenosis. SUMMARY OF FINDINGS: 1. Kuof-uu-nqgoqfha 2-vessel coronary artery disease with 30% mid LAD, 20% mid RCA, 40% distal RCA, 40% proximal PDA stenosis, but no occlusive disease and minimal disease in the circumflex vessel. 2. Qeowglyy-mo-agdefd elevation of LVEDP. 3. Uncontrolled systemic hypertension. [...] Denisa Alejandre M.D. 04/22/2020 10:09 A Denisa Alejadnre M.D. Date Dict: 04/16/2020/02:07 Nikki/Denisa Alejandre M.D. Date Trans: 04/17/2020 09:09 Chad/anna [id number] cc: Cam Bates M.D. [address], [place] [address] [facility] Encounters Encounter Date Encounter Type Care Provider Facility Start: 01-19-2024 ambulatory [facility] Start: 01-07-2024 End: 01-07-2024 ambulatory [facility] Start: 07-29-2023 End: 07-29-2023 ambulatory [facility] Start: 05-27-2023 End: 05-27-2023 ambulatory [facility] Start: 04-23-2023 ambulatory [facility] Start: 04-23-2023 End: 04-23-2023 ambulatory [facility] Start: 03-02-2023 End: 03-03-2023 ambulatory [facility] Start: 02-27-2023 End: 02-27-2023 ambulatory [facility] Start: 01-19-2023 End: 01-20-2023 ambulatory [facility] Facility:[facility]1 Start: 01-09-2023 End: 01-09-[address] [...] End: 04-17-2020 Patient encounter procedure PROVIDER UNKNOWN Facility:[facility] Payers Date Payer Category Payer Medicare [id number] 1959 Private Health Insurance [facility] [id number] 1959 Private Health Insurance [id number] 1940 Unknown [id number] 2.16.8 [id number] 1940 Unknown [id number] 2.16.84 [id number] 1940 Unknown [id number] 2.16.84 [id number] 1940 Unknown [id number] 2.16.84 [id number] 1940 Unknown [id number] 2.16.84 [id number] 1940 Unknown [id number] 2.16.84 [id number] 1942 Unknown [id number] 2.16.84 [id number] 1940 Unknown [id number] 2.16.84 [id number] 1940 Unknown [id number] 2.16.84 [id number] Clinical Notes 03-23-2021 to 01-19-2024 Note Date & Type Note Facility 01-19-2024 Note Cardiology Progress Note - [facility] Reason for visit: ER follow-up 01/19/2024 [...] atrial fibrillation and was recently admitted to [facility]. She converted on her own with mild [...] A DAY ergocalciferol (Vitamin D-2) 1.25 MG (96428 Units) capsule Vitamin D fu (more content not included)... [facility] 01-07-2024 Note Cardiology Progress Note - [facility] Reason for visit: follow-up 01/07/2024 Patient [...] atrial fibrillation and was recently admitted to [facility]. She converted on her own with mild [...] on file Intimate Partner Violence: Unknown (12/03/2023) [place] Safety & Environment Fear of Current or [...] A DAY ergocalciferol (Vitamin D-2) 1.25 MG (39291 Units) capsule Vitamin D isosorbide mononitrate ER [...] (Pacerone) 200 mg (more content not included)... [facility] 01-07-2024 Note Patient here for 6 m [...] All other systems reviewed and are negative. [facility] 07-29-2023 Note [place] Electrophysiology Consult Note Reason [...] atrial fibrillation and was recently admitted to [facility]. She converted on her own with mild [...] A DAY ergocalciferol (Vitamin D-2) 1.25 MG (11477 Units) capsule Vitamin D isosorbide mononitrate ER [...] dry eyes, no (more content not included)... [facility] 07-29-2023 Note Patient here for 2 m [...] All other systems reviewed and are negative. [facility] 05-27-2023 Note [place] Electrophysiology Consult Note Reason [...] atrial fibrillation and was recently admitted to [facility]. She converted on her own with mild [...] A DAY ergocalciferol (Vitamin D-2) 1.25 MG (56939 Units) capsule Vitamin D famotidine (Pepcid) 20 [...] 3 spironolactone (Aldac (more content not included)... [facility] 04-23-2023 Note Patient: Betty Null eser Procedure Summary Date: 04/23/23 Room / Location: [facility] EP / [facility] (Cath) Anesthesia Start: 1225 Anesthesia [...] no known notable events for this encounter. [facility] 04-23-2023 Note Patient: Betty Null eser Procedure Summary Date: 04/23/23 Room / Location: [facility] EP / [facility] (Cath) Anesthesia Start: 1225 [...] SpO2 Transport: uneventful Patient condition is: stable [facility] 04-23-2023 Note ATRIAL FIBRILLATION ABLATION PROCEDURE NOTE DATE OF PROCEDURE: 04/23/2023 PERFORMING PHYSICIAN: Dr. Lucho Taylor CRULLER MAKER: Dr Marie Pace CONSENT: Patient NAME OF [...] atrial fibrillation and was recently admitted to [facility]. She converted on her own with mild [...] pulmonary veins. Esophagus was mapped using the [employer] 3D mapping software and noted to lie [...] and hemostasis noted. She was transferred to [facility] (more content not included)... [facility] 04-23-2023 Note Airway Date/Time: 04/23/2023 12:45 PM Urgency: elective Airway not difficult General Information and Staff Patient location during procedure: OR Resident/AERODYNAMICS ENGINEER/CAA: Jonathon Riddle MD Performed: resident/AERODYNAMICS ENGINEER/CAA Indications and Patient Condition Indications for airway [...] 20 Number of attempts at approach: 1 [facility] 04-23-2023 Note Patient: Betty dean Procedure Information Date/Time: 04/23/23 1230 Procedure: Ablation a-fib paroxysmal Location: [facility] / [facility] (Cath) Providers: Lucho Taylor MD Relevant Problems Cardio (+) Benign essential HTN (+) Bilateral carotid artery stenosis (+) Coronary artery disease 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 Plan discussed with resident, CAA and AERODYNAMICS ENGINEER. 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 Do not wear perfume, make-up, nail argentine, or lotions on the day of your [...] need to make any changes, please call [phone]. Notify your surgeon if you develop any illness such as a cold, cough, fever, sore throat or vomiting between now and your surgery. Thank you for entrusting us with your care. [facility] Surgical Services Team [facility] 02-27-2023 Note [place] Electrophysiology Consult Note Reason for visit: Afib ablation HP and consent HPI: She is here for follow-up for H&P and consent for A-fib ablation. She was provided PrePlay video I did watch it. She has [...] atrial fibrillation and was recently admitted to [facility]. She converted on her own with mild [...] A DAY ergocalciferol (Vitamin D-2) 1.25 MG (41187 Units) capsule Vitamin D isosorbide mononitrate ER [...] no headaches Psyc (more content not included)... [facility] 02-27-2023 Note Patient is here toda y for a 1 month follow up. Review of Systems Constitutional: Positive for weight gain. Respiratory: Positive for cough and shortness of breath. Musculoskeletal: Positive for arthritis and back pain. All other systems reviewed and are negative. [facility] 04-09-2021 Note [facility] Staff Presents for excisional biopsy form right [...] SARS-CoV-2 (COVID-19) mRNA BNT-162b2 vax 11/30/2020 Recorded [facility] Comment on above: Result Comment: Elec tronically Signed By: IZZY REYES, Salvatore River\Date and Time Signed: 04/09/21 17:10 EDT 03-23-2021 Note Chief Complaint Consultation for excision of Moles [facility] Staff 80 year old female referred by [...] Aspirin [address] 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 Hx of Hypertension, Diastolic heart failure, mitral [...] Directed Allergies C (more content not included)... [facility] Comment on above: Result Comment: Elec tronically [...] and content) DATE CREATED AUTHOR 05/03/2020 [facility] DATE CREATED AUTHOR AUTHOR'S ORGANIZ ATION 04/17/2021 [facility] DATE CREATED AUTHOR AUTHOR'S ORGANIZ ATION 01/25/2023 [facility] DATE CREATED AUTHOR AUTHOR'S ORGANIZ ATION 01/30/2024 [facility] RECORDS PERTAINING TO PATIENTS WHO [...] BE BASED ON THE PRIMARY CLINICAL RECORDS. [employer] provides no warranty or guarantee of the accuracy or completeness of information in this document.
--- NOTE | 2024-12-09 10:38 | ECG_ITS ---
The [facility] Test Date: 2024-12-09 Pat Name: PAULINE CAMARENA Department: Room: - Gender: Female Lotus Notes Developer: : 1940 Requested By: CAM CHEN Order Number: [id number] Reading MD: CAM CHEN Measurements Intervals Thompson Rate: 76 P: 52 SC: 156 QRS: -3 QRSD: 82 T: 65 QT: 384 QTc: 414 Interpretive Statements 1100 Sinus rhythm 9110 normal ECG Compared to ECG 01/13/2024 15:48:59 No significant changes Electronically Signed On 12-11-2024 6:09:49 EST by CAM CHEN
--- NOTE | 2024-12-09 10:38 | XR_ITS ---
The [address] [address] Patient Name: PAULINE CAMARENA MRN: [id number] date: 1940 Sex: F Assigned Patient Location: ER Current Patient Location: ER Accession/Order Number: [id number] Exam Date: 12/09/2024 11:23 Report Date: 12/09/2024 11:27 At the request of: PERRY ALEJO MD Procedure: XR chest 2V PA AND LATERAL CHEST: CLINICAL HISTORY: Stabbing left-sided chest pain COMPARISON: 01/13/2024 Mild atelectasis or scarring is seen at the lower lungs. There is no additional consolidation, effusion or pneumothorax. The cardiac, hilar and mediastinal silhouettes are stable. There is no vascular congestion. The visualized bony thorax is intact. Mild degenerative changes are visualized at the spine. XR/XR chest 2V IMPRESSION: BASILAR ATELECTASIS AND/OR SCARRING. NO OTHER ACUTE FINDINGS. Impression dictated by: Johana Dorantes M.D.12/09/2024 11:27 AM Dictation Location: [facility] [employer] Electronically authenticated by: [id number] Y Date: 12/09/2024 11:27
--- NOTE | 2024-12-09 10:40 | ED_ITS ---
HPI HPI - General Adult General Chief complaint: Chest Pain Stated complaint: FLANK PAIN, FEVER, HYPERTENSION Time Seen by Provider: 12/09/24 10:38 Source: patient Limitations: no limitations History of Present Illness HPI narrative: Patient is a 84-year-old female who is presenting to the ER today with chief complaint of left lower anterior chest wall pain underneath her left breast. Patient states it is sharp stabbing, no radiation. No shortness of breath. No nausea or vomiting. Patient is here with son and eguiajng-vp-rqq. Patient has no other acute complaints at this time. All systems are negative except as noted/marked. All systems reviewed and otherwise negative. Nurses note and vital signs reviewed and patient is not hypoxic. General: The patient appears well and in no apparent distress. Patient is resting comfortably on cart. Patient is not toxic, lethargic, or listless Skin: Warm, dry, no pallor noted. There is no rash noted. No petechiae, purpura. Head: Normocephalic, atraumatic Eye: Normal conjunctiva, no drainage, EOMI. PERRL Ears, Nose, Mouth, and Throat: oral mucosa is moist. Nares patent. Mouth without vesicles. Cardiovascular: Regular Rate and Rhythm, no murmur, gallop, rub; patient has moderate to severe reproducible tenderness to palpation to left anterior chest wall, no crepitus. No rash noted. Respiratory: Patient is in no distress, no accessory muscle use, lungs are clear to auscultation, no wheezing, rales or rhonchi Back: non-tender, no CVA tenderness bilaterally to percussion. No CT LS midline pain GI: no tenderness to palpation, no masses appreciated. No rebound, guarding, or rigidity noted. No distention Musculoskeletal: Patient has full range of motion of all of the extremities, no motor, sensory, or focal neurological deficits Neurological: A&O x4, normal speech Psychiatric: Cooperative Related Data Home Medications ?Medication ?Instructions ?Recorded ?Confirmed apixaban 5 mg tablet (Eliquis) 5 mg PO Q12H 01/13/24 12/09/24 atorvastatin 10 mg tablet 10 mg PO DAILY 01/13/24 12/09/24 ergocalciferol (vitamin D2) 1,000 1,000 mcg PO DAILY 01/13/24 01/13/24 unit capsule isosorbide mononitrate 60 mg 60 mg PO BID 01/13/24 12/09/24 tablet,extended release 24 hr levothyroxine 88 mcg tablet 88 mcg PO DAILY 01/13/24 12/09/24 liothyronine 25 mcg tablet 25 mcg PO DAILY 01/13/24 12/09/24 losartan 50 mg tablet 50 mg PO DAILY 01/13/24 12/09/24 metoprolol succinate 100 mg 100 mg PO DAILY 01/13/24 12/09/24 tablet,extended release 24 hr spironolactone 25 mg tablet 12.5 mg PO DAILY 01/13/24 12/09/24 metoprolol succinate 50 mg 50 mg PO .evening 12/09/24 12/09/24 tablet,extended release 24 hr Previous Rx's ?Medication ?Instructions ?Recorded tramadol 50 mg tablet 50 mg PO Q8H PRN pain #14 tabs 12/09/24 Allergies Allergy/AdvReac Type Severity Reaction Status Date / Time diltiazem (From [facility]) Allergy Hives Verified 12/09/24 10:18 digoxin AdvReac Severe Nausea Verified 12/09/24 10:18 Opioid HPI Opioid Management Most Recent Opioid Data: Last Pain Scale 10 12/09/24 10:57 12/09/24 Last MAR Pain Assessment 12/09/24 10:57 [facility] Medical History (Updated 12/09/24 @ 12:50 by Yaniv Skinner MD) Atrial fibrillation ?I48.91 - Unspecified atrial fibrillation (ICD-10) Social History Little interest or pleasure in doing things: several days Feeling down, depressed, or hopeless: several days Exam Constitutional Vital Signs, click to edit/add: Last Vital Signs Temp 97.9 F 12/09/24 10:18 Pulse 83 12/09/24 10:30 Resp 15 12/09/24 10:30 BP 146/83 H 12/09/24 11:01 Pulse Ox 94 L 12/09/24 11:30 O2 Del Method Room Air 12/09/24 10:18 Course Vital Signs Vital signs: Vital Signs Temperature 97.9 F 12/09/24 10:18 Pulse Rate 103 H 12/09/24 10:18 Respiratory Rate 18 12/09/24 10:18 Blood Pressure 188/83 H 12/09/24 10:18 Pulse Oximetry 95 12/09/24 10:18 Oxygen Delivery Method Room Air 12/09/24 10:18 Temperature 97.9 F 12/09/24 10:18 Pulse Rate 83 12/09/24 10:30 Respiratory Rate 15 12/09/24 10:30 Blood Pressure 146/83 H 12/09/24 11:01 Pulse Oximetry 94 L 12/09/24 11:30 Oxygen Delivery Method Room Air 12/09/24 10:18 Medical Decision Making MDM Narrative Medical decision making narrative: Patient lab work shows no acute findings. EKG showed no acute findings. X-ray showed no acute findings. Patient was initially given a dose of morphine secondary to pain and discomfort. During patient's ER visit, it was noted that patient lifted a heavy lift chair twice last evening around 7 PM last night and did not think much of it. Patient had no pain when she was doing that, but patient woke up in the middle the night with the sharp left lower anterior chest wall pain. Patient was given ice. Patient was given OPEP therapy. Patient was sent home with a prescription for tramadol. Patient was education on using Tylenol every 4 hours, patient could use tramadol and ice. Education was done on treatment that can be done at home. Patient, son, sxpujkem-sp-jgg understand instructions, very thankful for help. Lab Data Labs: Lab Results 12/09/24 Range/Units 10:30 WBC 5.5 (4.0-11.0) 10^3/uL RBC 4.50 (4.20-5.40) 10^6/uL Hgb 13.5 (12.0-16.0) g/dL Hct 41.4 (36.0-48.0) % MCV 92.0 (81.0-99.0) fL MCH 30.0 (26.7-34.0) pg MCHC 32.6 (29.9-35.2) g/dL RDW 14.1 (11.0-15.0) % Plt Count 276 (150-450) 10^3/uL MPV 10.4 (9.5-13.5) fL Neut % (Auto) 47.5 (43.0-75.0) % Lymph % (Auto) 38.4 (20.5-60.0) % Treasure % (Auto) 10.1 (1.7-12.0) % Eos % (Auto) 2.5 (0.9-7.0) % Baso % (Auto) 1.1 (0.2-2.0) % Neut # (Auto) 2.6 (1.4-6.5) 10^3/uL Lymph # (Auto) 2.1 (1.2-3.8) 10^3/uL Treasure # (Auto) 0.6 (0.3-0.8) 10^3/uL Eos # (Auto) 0.1 (0.0-0.7) 10^3/uL Baso # (Auto) 0.1 (0.0-0.1) 10^3/uL Abs Immat Gran (auto) 0.02 (0.00-0.03) 10^3/uL Imm/Tot Granulo (auto) 0.4 (0.0-0.5) % PT 11.1 (9.0-11.6) sec INR 1.05 Sodium 141 (136-145) mmol/L Potassium 3.5 (3.5-5.1) mmol/L Chloride 105 (98-107) mmol/L Carbon Dioxide 27.2 (21.0-32.0) mmol/L Anion Gap 12.3 BUN 15.0 (7.0-18.0) mg/dL Creatinine 0.91 (0.55-1.02) mg/dL Est GFR ( Amer) >60 (>=60 mL/min/1.73m^2) Est GFR (Non-Af Amer) 59 L (>=60 mL/min/1.73m^2) BUN/Creatinine Ratio 16.5 Glucose 121 H (74-106) mg/dL Calcium 9.5 (8.5-10.1) mg/dL Total Bilirubin 0.6 (0.2-1.0) mg/dL AST 18 (15-37) U/L ALT 18 (14-59) U/L Alkaline Phosphatase 67 (46-116) U/L Troponin I High Sens 6.4 (4.0-51.3) pg/mL NT-Pro-B Natriuret Pep 82.0 (<=1800.0) pg/mL Total Protein 7.2 (6.4-8.2) g/dL Albumin 4.0 (3.4-5.0) g/dL Globulin 3.2 g/dL Albumin/Globulin Ratio 1.3 ECG Data Attestation: I personally reviewed and interpreted this ECG as follows: (EKG interpretation. Normal sinus rhythm at 76 beats a minute. Normal axis deviation. No acute ST elevation, no acute ectopy. QTc of 414.) Discharge Plan Discharge Chief Complaint: Chest Pain Clinical Impression: Chest pain, Chest wall pain, Acute costochondritis Patient Disposition: Home, Self-Care Time of Disposition Decision: 12:51 Condition: Fair Prescriptions / Home Meds: New tramadol 50 mg tablet 50 mg PO Q8H PRN (Reason: pain) Qty: 14 0RF No Action metoprolol succinate 50 mg tablet extended release 24 hr 50 mg PO .evening metoprolol succinate 100 mg tablet extended release 24 hr 100 mg PO DAILY isosorbide mononitrate 60 mg tablet extended release 24 hr 60 mg PO BID Eliquis 5 mg tablet 5 mg PO Q12H atorvastatin 10 mg tablet 10 mg PO DAILY levothyroxine 88 mcg tablet 88 mcg PO DAILY liothyronine 25 mcg tablet 25 mcg PO DAILY spironolactone 25 mg tablet 12.5 mg PO DAILY losartan 50 mg tablet 50 mg PO DAILY ergocalciferol (vitamin D2) 1,000 unit capsule 1,000 mcg PO DAILY Print Language: Kinyarwanda Instructions: Chest Pain (ED), Costochondritis (ED), Chest Wall Pain (ED) Additional Instructions: Use ice 20 minutes on, 20 minutes off for the next 1 to 2 weeks to injured area. Use the OPEP breathing therapy 10 times every hour while awake for the next 1 to 2 weeks You may take Tylenol with tramadol to help with pain If any other acute concerns arise, please return back to the ER for further testing and evaluation. Referrals: Norris Bates MD [Primary Care Provider] - 1 week
[2024-12-09 10:54] LABS: Basophils Absolute Auto 0.1 10^3/uL (0.0-0.1); Basophils Percent Auto 1.1 % (0.2-2.0); Eosinophils Absolute Auto 0.1 10^3/uL (0.0-0.7); Eosinophils Percent Auto 2.5 % (0.9-7.0); Hematocrit 41.4 % (36.0-48.0); Hemoglobin 13.5 g/dL (12.0-16.0); Immature Granulocytes Abs Auto 0.02 10^3/uL (0.00-0.03); Immature Granulocytes Pct Auto 0.4 % (0.0-0.5); Lymphocytes Absolute Auto 2.1 10^3/uL (1.2-3.8); Lymphocytes Percent Auto 38.4 % (20.5-60.0); Mean Corpuscular HGB Conc 32.6 g/dL (29.9-35.2); Mean Platelet Volume 10.4 fL (9.5-13.5); Monocytes Absolute Auto 0.6 10^3/uL (0.3-0.8); Monocytes Percent Auto 10.1 % (1.7-12.0); Neutrophils Absolute Auto 2.6 10^3/uL (1.4-6.5); Neutrophils Percent Auto 47.5 % (43.0-75.0); Platelet Count 276 10^3/uL (150-450); Red Cell Distribution Width 14.1 % (11.0-15.0); White Blood Count 5.5 10^3/uL (4.0-11.0)
[2024-12-09] MEDS: ASPIRIN 81 MG TAB.CHEW 162 MG PO (10:57)
[2024-12-09] MEDS: MORPHINE SULFATE 2 MG/ML SYRINGE IV (10:57)
[2024-12-09 11:07] LABS: INR 1.05; Prothrombin Time 11.1 sec (9.0-11.6)
[2024-12-09 11:12] LABS: Alanine Aminotransferase 18 U/L (14-59); Albumin Globulin Ratio 1.3; Alkaline Phosphatase 67 U/L (46-116); Anion Gap 12.3; Aspartate Amino Transferase 18 U/L (15-37); BUN Creatinine Ratio 16.5; Bilirubin Total 0.6 mg/dL (0.2-1.0); Calcium 9.5 mg/dL (8.5-10.1); Carbon Dioxide 27.2 mmol/L (21.0-32.0); Chloride 105 mmol/L (98-107); Estimated GFR (African America >60 (>=60 mL/min/1.73m^2); Estimated GFR (Non-African Ame 59 (>=60 mL/min/1.73m^2); Globulin 3.2 g/dL; Glucose 121 mg/dL (74-106); Potassium 3.5 mmol/L (3.5-5.1); Sodium 141 mmol/L (136-145); Total Protein 7.2 g/dL (6.4-8.2)
[2024-12-09 11:19] LABS: Troponin I High Sensitivity 6.4 pg/mL (4.0-51.3)
== END 2024-12-09 13:07 | disposition home or self-care (01) ==
PROVIDERS: Emergency Provider Emergency Medicine; PCP Family Medicine
DX: R07.89 Other chest pain (principal); M94.0 Chondrocostal junction syndrome [Tietze]
CPT/HCPCS: 36415; 71046; 80053; 83880; 84484; 85025; 85610; 93005; 96374; 99285; J2270

== ENCOUNTER 2024-12-27 10:17 | Outpatient (OUT) | payer MEDICARE, OTHER, SELFPAY ==
--- OUTSIDE RECORDS SUMMARY | 2024-12-27 10:31 | XMS_ITS | CCD ---
Author Organization [facility] CliniSyde Care Team Providers Care Press Assistant Name Role Phone UNKNOWN, PROVIDER Admitting Unavailable [...] HOY ., DR LEVY Primary Care Unavailable NICOEL CLINE Consulting Unavailable Ally Mckeon Consulting Unavailable [...] sources) dilTIAZem; Translations: [DILTIAZEM] Drug Allergy 11-19-2015 [facility] Repository (1 source) Digoxin; Translations: [DIGOXIN] Drug Allergy 12-24-2022 [facility] Repository Problems Active Problems Problem Classification [...] disease (3 sources) Atherosclerotic heart disease of [place] coronary artery without angina pectoris; Translations: [ASHD YOMBA SHOSHONE CA W/O ANGINA PECTORIS] Onset: 02-05-2022 Chronic [...] 05-19-2022 Chronic Other aftercare (1 source) 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; Translations: [OTH NURSING HOME CURRENT DRUG THERAPY] Onset: 01-13-2023 Episodic Other aftercare (1 source) 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; Translations: [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 SERVICE 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 ASSOCIATE CURRNT USE ANTICOAGULANTS] Onset: 01-13-2023 Episodic Other [...] Onset: 02-05-2022 Episodic Other aftercare (1 source) correction (current) use of oral hypoglycemic drugs; Translations: [CUSTOMER SERVICE SALES ASSOCIATE USE ORAL HYPOGLYCEMIC DX] Onset: 05-19-2022 Episodic Other aftercare (1 source) 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; Translations: [CUSTOMER SERVICE SALES ASSOCIATE CURRENT USE OF ASPIRIN] Onset: 04-23-2022 Episodic Other lower respiratory disease (1 source) Acute respiratory distress; Translations: [ACUTE RESPIRATORY DISTRESS] Onset: 04-23-2022 Episodic Other lower respiratory disease (1 source) Dyspnea, unspecified; Translations: [DYSPNEA UNSPECIFIED] Onset: 02-05-2022 Episodic Results Test Name Value Interpretation Reference Range Facility Office Visiton 01-19-2024 Follow-up visit [id number] Jessica Camarena ra 1940 F Date Provider Department Center 01/19/2024 Neris-KAYLYN GILBERT CARD [facility] No family history on file Level of Service:69824 SC OFFICE/OUTPATIENT ESTABLISHED MOD MDM 30 MIN Normal [facility] Office Visiton 01-07-2024 Follow-up visit [id number] Jessica Camarena ra 1940 F Date Provider Department Center 01/07/2024 KAYLYN JANG No family history on file Level of Service:49576 SC OFFICE/OUTPATIENT ESTABLISHED MOD MDM 30 MIN [facility] 36on 08-14-2023 36 Per Leanna patient to come in and have EKG done. If patient is not in Afib, needs a 30 day monitor and follow up after monitor in office. If she is back in Afib patient to resume amiodarone. Pt will be in on 08/17/23 around 11 am for EKG [facility] 36 Patient called and states that you took her off amiodarone recently. She states that she is having elevated heart rates into the 90's and experiencing fatigue and lightness with any exertion. Patient questioning if she should go back on it. Please advise [facility] Office Visiton 07-29-2023 Follow-up visit [id number] Jessica Camarena ra 1940 F Date Provider Department [place] 07/29/2023 LEANNA OCONNELL No family history on file Level of Service:99452 SC OFFICE/OUTPATIENT ESTABLISHED MOD [facility] 30-39 MIN [facility] 36on 06-01-2023 36 3 months post ablati on would around 07/24/23 [facility] 36 I called - she is at [...] [email or web address] Follow-Upon 05-27-2023 Follow-Up [id number] Jessica Camarena ra 1940 F Date Provider Department [place] 05/27/2023 LEANNA OCONNELL No family history on file Level of Service:36005 SC OFFICE/OUTPATIENT ESTABLISHED MOD MDM 30-39 MIN Reason for Visit and Comments: Follow-up [126935] [facility] Telephoneon 05-14-2023 Telephone [id number] Jessica Camarena ra 1940 Date Provider Department Center 05/14/20231986LUCRECIA JOHNS [facility] No family history on file Reason for Visit and Comments: 3 week post ablation f/u [Other] [facility] Telephoneon 04-30-2023 Telephone [id number] Jessica Camarena ra 1940 Date Provider Department Center 04/30/20231986-LUCRECIA JOHNS [facility] [place] [facility] No family history on file Reason for Visit and Comments: afib ablation f/u [Other] [facility] HPon 04-23-2023 HP -- Attestation signed by [...] at 0800 ergocalciferol (Vitamin D-2) 1.25 MG (38365 Units) capsule Vitamin D Past Week furosemide [...] fibrillation (CMS/HCC) Persistent, not longstanding, AFIB RVR [id number] 4 for age, hypertension, HFpEF. -Continue eliquis 5mg bid -ecg SR today - will proceed with A.fib ablation Benign essential HTN -Toprol-XL 100 mg, Imdur 60 mg, Aldactone 12.5 mg, -losartan 50mg Bilateral carotid artery stenosis Lipids stable -continue atorvastatin 10 mg, Eliquis Chronic diastolic heart failure, NYHA class 2 (CMS/HCC) [facility] II, euvolemic -Continue GDMT oprol-XL 75 mg, Aldactone 25 mg, losartan 50 mg, Imdur 60 mg, Lipitor 10 mg, Eliquis 5 mg twice daily, Lasix 20 mg Coronary artery disease involving [place] coronary artery of [place] heart without angina pectoris (more content not included)... Normal [facility] NURSNOTEon 04-23-2023 NURSNOTE Patients groin site looks C/D/I with no hematoma. Discharge instructions given prior to leaving. Normal [facility] POCT GLUCOSE METER UNSOLICIT ED RESULTSon 04-23-2023 Glucose [Mass/Vol] 103 mg/dL Normal 70-105 [facility] Comment on above: Order Comment: Waive d Testing in the ED is performed under the ED CLIA certificate #[id number]. Result Comment: pbar retcorson Performed By: #### L [id number] ####[facility] (WP Engine)[address] [place] [address] PROTIME-INRon 04-23-2023 INR IN PPP BY COAGULATION ASSAY 1.10 Normal 0.90-1.10 [facility] Comment on above: Result Comment: ACCC [...] CHEST 1995;108:231S-246S. Performed By: #### L [id number] ####[facility] Growing [employer])[address] [place] [address] PROTHROMBIN TIME (PT) IN PPP BY COAGULATION ASSAY 14.3 Seconds Normal 12.3-14.8 [facility] Comment on above: Performed By: #### L [id number] ####[facility] (KRISTINA)[address] [place] [address] [id number] 04-16-2023 [id number] ARRIVAL TIME GIVEN 1100, PT VERBALIZED UNDERSTANDIING Normal [facility] Prep for Procedureon 023 Prep for Procedure [id number] Jessica Camarena ra 1940 F Date Provider Department Center 03/13/2023 Dom-LUCRECIA JOHNS [facility] [place] [facility] No family history on file Normal [facility] [id number] 03-05-2023 [id number] ARRIVAL TIME [address] TAKE THESE MEDS ON THE MORNING OF YOUR PROCEDURE WITH SIPS OF WATER AMIODARONE ISOSORBIDE LEVOTHYROXINE METOPROLOL PANTOPRAZOLE Additional Instructions: IF YOU ARE GOING HOME AFTER YOUR SURGERY OR PROCEDURE, FOR YOUR SAFETY, YOUR SURGERY WILL BE CANCELLED IF BOTH OF THE FOLLOWING ARE NOT AVAILABLE: 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 Do not wear perfume, make-up, nail algerian, or lotions on the day of your [...] need to make any changes, please call [phone]. Notify your surgeon if you develop any illness such as a cold, cough, fever, sore throat or vomiting between now and your surgery. Thank you for entrusting us with your care. [facility] Surgical Services Team Normal [facility] BASIC METABOLIC PANELon 05-2 Anion gap [Moles/Vol] 12 mmol/L Normal 7-20 [facility] Comment on above: Performed By: #### L [id number] #### [facility] (BEAKER) [address] [address] Calcium [Mass/Vol] 8.7 mg/dL Normal 8.6-10.3 [facility] Comment on above: Performed By: #### L [id number] #### [facility] (BEAKER) [address] [place] [address] Chloride [Moles/Vol] 102 mmol/L Normal 98-107 [facility] Comment on above: Performed By: #### L [id number] #### [facility] (BEAKER) [address] [place] [address] CO2 [Moles/Vol] 28 mmol/L Normal 21-31 [facility] Comment on above: Performed By: #### L [id number] #### [facility] (BEAKER) [address] [address] Creatinine [Mass/Vol] 0.95 mg/dL Normal 0.60-1.20 [facility] Comment on above: Performed By: #### L [id number] #### [facility] [address] [place] [address] GLOMERULAR FILTRATION RATE ML/MIN/1.73 SQ M.PREDICTED 60.6 mL/min/1.73m*2 Normal >60.0 [facility] Comment on above: Result Comment: [facility]???s estimated glomerular filtration rate (eGFR) will [...] individuals. Performed By: #### L [id number] #### [facility] ([facility]) [address] [place] [address] Glucose [Mass/Vol] 91 mg/dL Normal 70-100 [facility] Comment on above: Performed By: #### L [id number] #### [facility] ([facility]) [address] [place] [address] Potassium [Moles/Vol] 3.9 mmol/L Normal 3.5-5.1 [facility] Comment on above: Performed By: #### L [id number] #### [facility] ([facility]) [address] [place] [address] Sodium [Moles/Vol] 138 mmol/L Normal 136-145 [facility] Comment on above: Performed By: #### L [id number] #### [facility] [address] [place] [address] Urea nitrogen [Mass/Vol] 21 mg/dL Normal 7-25 [facility] Comment on above: Performed By: #### L [id number] #### [facility] ([facility]) [address] [place] [address] UREA NITROGEN/CREATININE (MASS RATIO) IN SER/PLAS 22.1 Normal [facility] Comment on above: Performed By: #### L [id number] #### [facility] [address] [place] [address] CBCon 03-02-2023 Erythrocyte distribution width (RBC) [Ratio] 14.6 % Normal 11.5-15.0 [facility] Comment on above: Performed By: #### L [id number] #### [facility] ([facility]) [address] [place] [address] ERYTHROCYTE MEAN CORPUSCULAR HEMOGLOBIN CONCENTRATION (G/DL) BY AUTOMATED 32.2 g/dL Normal 32.0-35.0 [facility] Comment on above: Performed By: #### L [id number] #### [facility] ([facility]) [address] [place] [address] Hematocrit (Bld) [Volume fraction] 38.2 % Normal 36.0-48.0 [facility] Comment on above: Performed By: #### L [id number] #### [facility] ([facility]) [address] [place] [address] Hemoglobin (Bld) [Mass/Vol] 12.3 g/dL Normal 12.0-15.0 [facility] Comment on above: Performed By: #### L [id number] #### [facility] ([facility]) [address] [place] [address] MCH (RBC) [Entitic mass] 30.1 pg Normal 27.0-33.0 [facility] Comment on above: Performed By: #### L [id number] #### [facility] ([facility]) [address] [place] [address] MCV (RBC) [Entitic vol] 93.4 fL Normal 82.0-98.0 [facility] Comment on above: Performed By: #### L [id number] #### [facility] [address] [place] [address] PLATELETS (10*3/UL) IN BLOOD AUTOMATED COUNT 271 10*3/uL Normal 150-400 [facility] [place] [facility] Comment on above: Performed By: #### L [id number] #### [facility] [address] [place] [address] RBC (Bld) [#/Vol] 4.09 10*6/uL Normal 3.80-5.00 [facility] Comment on above: Performed By: #### L [id number] #### [facility] ([facility]) [address] [place] [address] WBC (Bld) [#/Vol] 5.16 10*3/uL Normal 4.00-10.60 [facility] Comment on above: Performed By: #### L [id number] #### [facility] ([facility]) [address] [place] [address] CTA CHEST W AND/OR WO IV CON [...] reasonably achievable Electronically signed: Praveen Trevino. Normal [facility] Comment on above: Order Comment: Shaylee ryan schedule prior to March 12 Labon 03-02-2023 Lab [id number] Jessica Camarena ra 1940 Date Provider Department [place] 03/02/2023 2245-[facility]PD LAB RESOURCE [facility] No family history on file [facility] Office Visiton 02-27-2023 Follow-up visit [id number] Jessica Camarena ra 1940 Date Provider Department [place] 02/27/2023 1596-LEANNA VIVAS [facility] No family history on file Level of Service:05813 SC OFFICE/OUTPATIENT ESTABLISHED MOD MDM 30-39 MIN Reason for Visit and Comments: Follow-up [[id number]] - One month follow up [facility] Prep for Procedureon 023 Prep for Procedure [id number] Jessica Camarena ra 1940 Provider Department [place] 02/12/2023 1987-LUCRECIA JOHNS [facility] No family history on file [facility] 36on 02-02-2023 36 Allergy medication o r saline rinses. Avoid decongestants such as sudafed/phenylephrine/ ephedrine Normal [facility] PROF CHEM 8 (BAS METB)on Anion gap [Moles/Vol] 12.8 mmol/L Normal [facility] Comment on above: Performed By: #### B MP, HSTROPN, CK #### [facility] [address] [place] [address] Dr. Manfred Brooks Calcium [Mass/Vol] 9.5 mg/dL Normal 8.5-10.1 [facility] Comment on above: Performed By: #### B MANN HSTROPN, CK #### [facility] [address] [place] [address] [address] Manfred Brooks Chloride [Moles/Vol] 106 mmol/L Normal 98-107 [facility] Comment on above: Performed By: #### B MP HSTROPN, CK #### [facility] [address] [address] [address] Manfred Brooks CO2 [Moles/Vol] 27.3 mmol/L Normal 21.0-32.0 [facility] Comment on above: Performed By: #### B MANN HSTROPN, CK #### [facility] [address] [place] [address] Dr. Manfred Brooks Creatinine [Mass/Vol] 0.93 mg/dL Normal 0.55-1.02 [facility] Comment on above: Performed By: #### B MANN HSTROPN, CK #### [facility] [address] [address] [address] Manfred Brooks EGFR-AF FILIPINO >60 Normal >=60 [facility] Comment on above: Performed By: #### B MANN HSTROPN, CK #### [facility] [address] [place] [address] Dr. Manfred Brooks EGFR-NON AF FILIPINO 58 mL/min/1.73m2 Critically low >=60 [facility] Comment on above: Performed By: #### B MP, HSTROPN, CK #### [facility] [address] [address] [address] Manfred Brooks Glucose [Mass/Vol] 116 mg/dL Critically high 74-106 [facility] Comment on above: Performed By: #### B MP, HSTROPN, CK #### [facility] [address] [address] [address] Manfred Brooks Potassium [Moles/Vol] 4.1 mmol/L Normal 3.5-5.1 [facility] Comment on above: Performed By: #### B MANN, HSTROPN, CK #### [facility] [address] [place] [address] Dr. Manfred Brooks Sodium [Moles/Vol] 142 mmol/L Normal 136-145 [facility] Comment on above: Performed By: #### B MP, HSTROPN, CK #### [facility] [address] [place] [address] Dr. Manfred Brooks Urea nitrogen [Mass/Vol] 19.0 mg/dL Critically high 7.0-18.0 [facility] Comment on above: Performed By: #### B MP, HSTROPN, CK #### [facility] [address] [place] [address] Dr. Manfred Brooks Urea nitrogen/Creatinine [Mass ratio] 20.4 mg/mg Normal [facility] Comment on above: Performed By: #### B MP, HSTROPN, CK #### [facility] [address] [place] [address] Dr. Manfred Brooks CBC AUTO DIFFon 01-09-2023 BASO # 0.1 103/ul Normal 0.0-0.1 [facility] Comment on above: Performed By: #### C VDTBH #### [facility] [address] [place] [address] Dr. Manfred Brooks Basophils/100 WBC (Bld) 0.7 % Normal 0.2-2.0 [facility] Comment on above: Performed By: #### C VDTBH #### [facility] [address] [place] [address] Dr. Manfred Brooks EO # 0.1 103/ul Normal 0.0-0.7 [facility] Comment on above: Performed By: #### C VDTBH #### [facility] [address] [place] [address] Dr. Manfred Brooks Eosinophils/100 WBC (Bld) 1.9 % Normal 0.9-7.0 [facility] Comment on above: Performed By: #### C VDTBH #### [facility] [address] [place] [address] Dr. Manfred Brooks Erythrocyte distribution width (RBC) [Ratio] 15.5 % Critically high 11.0-15.0 [facility] Comment on above: Performed By: #### C VDTBH #### [facility] [address] [place] [address] Dr. Manfred Brooks Hematocrit (Bld) [Volume fraction] 39.1 % Normal 36.0-48.0 [facility] Comment on above: Performed By: #### C VDTBH #### [facility] [address] [place] [address] Dr. Manfred Brooks Hemoglobin (Bld) [Mass/Vol] 12.6 g/dL Normal 12.0-16.0 [facility] Comment on above: Performed By: #### C VDTBH #### [facility] [address] [place] [address] Dr. Manfred Brooks IG # 0.02 10e3/ul Normal 0.00-0.03 [facility] Comment on above: Performed By: #### C VDTBH #### [facility] [address] [place] [address] Dr. Manfred Brooks IG % 0.3 % Normal 0.0-0.5 [facility] Comment on above: Performed By: #### C VDTBH #### [facility] [address] [place] [address] Dr. Manfred Brooks LYMPH # 2.5 103/ul Normal 1.2-3.8 [facility] Comment on above: Performed By: #### C VDTBH #### [facility] [address] [place] [address] Dr. Manfred Brooks Lymphocytes/100 WBC (Bld) 36.2 % Normal 20.5-60.0 [facility] Comment on above: Performed By: #### C VDTBH #### [facility] [address] [place] [address] Dr. Manfred Brooks MANUAL DIFF REQ NO Normal [facility] Comment on above: Performed By: #### C VDTBH #### [facility] [address] [place] [address] Dr. Manfred Brooks MCH (RBC) [Entitic mass] 29.0 pg Normal 26.7-34.0 [facility] Comment on above: Performed By: #### C VDTBH #### [facility] [address] [place] [address] Dr. Manfred Brooks MCHC (RBC) [Mass/Vol] 32.2 g/dL Normal 29.9-35.2 [facility] Comment on above: Performed By: #### C VDTBH #### [facility] [address] [place] [address] Dr. Manfred Brooks MCV (RBC) [Entitic vol] 89.9 fL Normal 81.0-99.0 [facility] Comment on above: Performed By: #### C VDTBH #### [facility] [address] [place] [address] Dr. Manfred Brooks MONO # 0.6 103/ul Normal 0.3-0.8 [facility] Comment on above: Performed By: #### C VDTBH #### [facility] [address] [place] [address] Dr. Manfred Brooks Monocytes/100 WBC (Bld) 9.2 % Normal 1.7-12.0 [facility] Comment on above: Performed By: #### C VDTBH #### [facility] [address] [place] [address] Dr. Manfred Brooks NEUT # 3.5 103/ul Normal 1.4-6.5 [facility] Comment on above: Performed By: #### C VDTBH #### [facility] [address] [place] [address] Dr. Manfred Brooks Neutrophils/100 WBC (Bld) 51.7 % Normal 43.0-75.0 [facility] Comment on above: Performed By: #### C VDTBH #### [facility] [address] [place] [address] Dr. Manfred Brooks Platelet mean volume (Bld) [Entitic vol] 11.3 fL Normal 9.5-13.5 [facility] Comment on above: Performed By: #### C VDTBH #### [facility] [address] [address] [address] Manfred Brooks PLT 215 103/ul Normal 150-450 [facility] Comment on above: Performed By: #### C VDTBH #### [facility] [address] [place] [address] Dr. Manfred Brooks RBC 4.35 106/ul Normal 4.20-5.40 [facility] Comment on above: Performed By: #### C VDTBH #### [facility] [address] [place] [address] Dr. Manfred Brooks WBC 6.8 103/ul Normal 4.0-11.0 [facility] Comment on above: Performed By: #### C VDTBH #### [facility] [address] [place] [address] Dr. Manfred Brooks CPKon 01-09-2023 CK [Catalytic activity/Vol] 121 U/L Normal 26-192 [facility] Comment on above: Performed By: #### B MP, HSTROPN, CK #### [facility] [address] [place] [address] Dr. Manfred Brooks PROF CHEM 8 (BAS METB)on Anion gap [Moles/Vol] 14.2 mmol/L Normal [facility] Comment on above: Performed By: #### B MP, HSTROPN, CK #### [facility] [address] [place] [address] Dr. Manfred Brooks Calcium [Mass/Vol] 9.3 mg/dL Normal 8.5-10.1 [facility] Comment on above: Performed By: #### B MP, HSTROPN, CK #### [facility] [address] [place] [address] Dr. Manfred Brooks Chloride [Moles/Vol] 103 mmol/L Normal 98-107 [facility] Comment on above: Performed By: #### B MP, HSTROPN, CK #### [facility] [address] [place] [address] Dr. Manfred Brooks CO2 [Moles/Vol] 30.5 mmol/L Normal 21.0-32.0 [facility] Comment on above: Performed By: #### B MANN HSTROPN, CK #### [facility] [address] [address] [address] Manfred Brooks Creatinine [Mass/Vol] 0.76 mg/dL Normal 0.55-1.02 [facility] Comment on above: Performed By: #### B MP HSTROPN, CK #### [facility] [address] [address] [address] Manfred Brooks EGFR-AF FILIPINO >60 Normal >=60 [facility] Comment on above: Performed By: #### B MANN HSTROPN, CK #### [facility] [address] [place] [address] Dr. Manfred Brooks EGFR-NON AF FILIPINO >60 Normal >=60 [facility] Comment on above: Performed By: #### B MANN HSTROPN, CK #### [facility] [address] [address] [address] Manfred Brooks Glucose [Mass/Vol] 97 mg/dL Normal 74-106 [facility] Comment on above: Performed By: #### B MANN HSTROPN, CK #### [facility] [address] [address] [address] Manfred Brooks Potassium [Moles/Vol] 4.7 mmol/L Normal 3.5-5.1 [facility] Comment on above: Performed By: #### B MANN HSTROPN, CK #### [facility] 39 [address] [place] [address] Dr. Manfred Brooks Sodium [Moles/Vol] 143 mmol/L Normal 136-145 [facility] Comment on above: Performed By: #### B MANN HSTROPN, CK #### [facility] [address] [place] [address] Dr. Manfred Brooks Urea nitrogen [Mass/Vol] 16.0 mg/dL Normal 7.0-18.0 [facility] Comment on above: Performed By: #### B MANN, HSTROPN, CK #### [facility] [address] [address] [address] Manfred Brooks Urea nitrogen/Creatinine [Mass ratio] 21.1 mg/mg Normal [facility] Comment on above: Performed By: #### B MANN HSTROPN, CK #### [facility] [address] [address] [address] Manfred Brooks TROPONIN, HIGH SENSITIVITYon 01-09-2023 HSTROP 6.1 pg/mL Normal 4.0-51.3 [facility] Comment on above: Result Comment: CUT- OFF POINTS HAVE BEEN ESTABLISHED BASED ON THE FOURTH UNIVERSAL DEFINITIONS OF MYOCARDIAL INFARCTION. THE UPPER REFERENCE LIMIT (URL) OF TROPONIN, DEFINED THE 99TH PERCENTILE OF cTnI DISTRIBUTION IN A REFERENCE POPULATION, HAS BEEN CONFIRMED THE DECISION THRESHOLD FOR NM DIAGNOSIS. Performed By: #### B MANN HSTROPJim, CK #### [facility] [address] [place] [address] Dr. Manfred Brooks XR CHEST 1 Von [...] NICOLE CLINE Date: 2023-01-09 08:12 Normal [facility] CBC AUTO DIFFon 01-07-2023 BASO # 0.1 103/ul Normal 0.0-0.1 [facility] Comment on above: Performed By: #### B MANN HSTROPN, CK #### [facility] [address] [place] [address] Dr. Manfred Brooks Basophils/100 WBC (Bld) 0.8 % Normal 0.2-2.0 [facility] Comment on above: Performed By: #### B MANN HSTROPN, CK #### [facility] [address] [place] [address] Dr. Manfred Brooks EO # 0.1 103/ul Normal 0.0-0.7 [facility] Comment on above: Performed By: #### B MP, HSTROPN, CK #### [facility] [address] [place] [address] Dr. Manfred Brooks Eosinophils/100 WBC (Bld) 2.4 % Normal 0.9-7.0 [facility] Comment on above: Performed By: #### B MP, HSTROPN, CK #### [facility] [address] [place] [address] Dr. Manfred Brooks Erythrocyte distribution width (RBC) [Ratio] 15.6 % Critically high 11.0-15.0 [facility] Comment on above: Performed By: #### B MANN HSTROPN, CK #### [facility] [address] [place] [address] Dr. Manfred Brooks Hematocrit (Bld) [Volume fraction] 36.6 % Normal 36.0-48.0 [facility] Comment on above: Performed By: #### B MANN HSTROPN, CK #### [facility] [address] [place] [address] Dr. Manfred Brooks Hemoglobin (Bld) [Mass/Vol] 11.8 g/dL Critically low 12.0-16.0 [facility] Comment on above: Result Comment: RON ENT RECIEVED FLUIDS YESTERDAY AFTER MORNING CBC Performed By: #### B MP, HSTROPN, CK #### [facility] [address] [place] [address] Dr. Manfred Brooks IG # 0.01 10e3/ul Normal 0.00-0.03 [facility] Comment on above: Performed By: #### B MANN HSTROPN, CK #### [facility] [address] [place] [address] Dr. Manfred Brooks IG % 0.2 % Normal 0.0-0.5 [facility] Comment on above: Performed By: #### B MP, HSTROPN, CK #### [facility] [address] [place] [address] Dr. Manfred Brooks LYMPH # 2.1 103/ul Normal 1.2-3.8 [facility] Comment on above: Performed By: #### B MP, HSTROPN, CK #### [facility] [address] [place] [address] Dr. Manfred Brooks Lymphocytes/100 WBC (Bld) 35.1 % Normal 20.5-60.0 [facility] Comment on above: Performed By: #### B MP, HSTROPN, CK #### [facility] [address] [place] [address] Dr. Manfred Brooks MANUAL DIFF REQ NO Normal [facility] Comment on above: Performed By: #### B MP, HSTROPN, CK #### [facility] [address] [place] [address] Dr. Manfred Brooks MCH (RBC) [Entitic mass] 28.9 pg Normal 26.7-34.0 [facility] Comment on above: Performed By: #### B MP, HSTROPN, CK #### [facility] [address] [place] [address] Dr. Manfred Brooks MCHC (RBC) [Mass/Vol] 32.2 g/dL Normal 29.9-35.2 [facility] Comment on above: Performed By: #### B MP, HSTROPN, CK #### [facility] [address] [place] [address] Dr. Manfred Brooks MCV (RBC) [Entitic vol] 89.7 fL Normal 81.0-99.0 [facility] Comment on above: Performed By: #### B MP, HSTROPN, CK #### [facility] [address] [place] [address] Dr. Manfred Brooks MONO # 0.6 103/ul Normal 0.3-0.8 [facility] Comment on above: Performed By: #### B MP, HSTROPN, CK #### [facility] [address] [place] [address] Dr. Manfred Brooks Monocytes/100 WBC (Bld) 9.4 % Normal 1.7-12.0 [facility] Comment on above: Performed By: #### B MANN HSTROPN, CK #### [facility] [address] [address] [address] Manfred Brooks NEUT # 3.1 103/ul Normal 1.4-6.5 [facility] Comment on above: Performed By: #### B MANN HSTROPN, CK #### [facility] [address] [place] [address] Dr. Manfred Brooks Neutrophils/100 WBC (Bld) 52.1 % Normal 43.0-75.0 [facility] Comment on above: Performed By: #### B MANN HSTROPN, CK #### [facility] [address] [place] [address] Dr. Manfred Brooks Platelet mean volume (Bld) [Entitic vol] 10.3 fL Normal 9.5-13.5 [facility] Comment on above: Performed By: #### B MANN, HSTROPN, CK #### [facility] [address] [place] [address] Dr. Manfred Brooks PLT 252 103/ul Normal 150-450 [facility] Comment on above: Performed By: #### B MANN, HSTROPN, CK #### [facility] [address] [place] [address] Dr. Manfred Brooks RBC 4.08 106/ul Critically low 4.20-5.40 [facility] Comment on above: Performed By: #### B MP, HSTROPN, CK #### [facility] [address] [place] [address] Dr. Manfred Brooks WBC 5.9 103/ul Normal 4.0-11.0 [facility] Comment on above: Performed By: #### B MANN, HSTROPN, CK #### [facility] [address] [place] [address] Dr. Manfred Brooks DIGOXINon 01-07-2023 DIG 0.5 ng/mL Critically low 0.9-2.0 [facility] Comment on above: Performed By: #### E ANU HOGANAVILA #### [facility] [address] [address] [address] Manfred Brooks PROF 14(COMP METB)on 023 Albumin [Mass/Vol] 3.6 g/dL Normal 3.4-5.0 [facility] Comment on above: Performed By: #### C VDTBH #### [facility] [address] [address] [address] Manfred Brooks Albumin/Globulin [Mass ratio] 1.3 {ratio} Normal [facility] Comment on above: Performed By: #### C VDTBH #### [facility] [address] [place] [address] Dr. Mnafred Brooks ALP [Catalytic activity/Vol] 67 U/L Normal 46-116 [facility] Comment on above: Performed By: #### C VDTBH #### [facility] [address] [place] [address] Dr. Manfred Brooks ALT [Catalytic activity/Vol] 23 U/L Normal 14-59 [facility] Comment on above: Performed By: #### C VDTBH #### [facility] [address] [place] [address] Dr. Manfred Brooks Anion gap [Moles/Vol] 10.8 mmol/L Normal [facility] Comment on above: Performed By: #### C VDTBH #### [facility] [address] [address] [address] Manfred Brooks AST [Catalytic activity/Vol] 14 U/L Critically low 15-37 [facility] Comment on above: Performed By: #### C VDTBH #### [facility] [address] [address] [address] Manfred Brooks Bilirubin [Mass/Vol] 0.7 mg/dL Normal 0.2-1.0 [facility] Comment on above: Performed By: #### C VDTBH #### [facility] [address] [address] [address] Manfred Brooks Calcium [Mass/Vol] 8.7 mg/dL Normal 8.5-10.1 [facility] Comment on above: Performed By: #### C VDTBH #### [facility] [address] [place] [address] Dr. Manfred Brooks Chloride [Moles/Vol] 106 mmol/L Normal 98-107 [facility] Comment on above: Performed By: #### C VDTBH #### [facility] [address] [place] [address] Dr. Manfred Brooks CO2 [Moles/Vol] 29.8 mmol/L Normal 21.0-32.0 [facility] Comment on above: Performed By: #### C VDTBH #### [facility] [address] [place] [address] Dr. Manfred Brooks Creatinine [Mass/Vol] 0.77 mg/dL Normal 0.55-1.02 [facility] Comment on above: Performed By: #### C VDTBH #### [facility] [address] [place] [address] Dr. Manfred Brooks EGFR-AF FILIPINO >60 Normal >=60 [facility] Comment on above: Performed By: #### C VDTBH #### [facility] [address] [place] [address] Dr. Manfred Brooks EGFR-NON AF FILIPINO >60 Normal >=60 [facility] Comment on above: Performed By: #### C VDTBH #### [facility] [address] [place] [address] Dr. Manfred Brooks Globulin (S) [Mass/Vol] 2.7 g/dL Normal [facility] Comment on above: Performed By: #### C VDTBH #### [facility] [address] [place] [address] Dr. Manfred Brooks Glucose [Mass/Vol] 99 mg/dL Normal 74-106 [facility] Comment on above: Performed By: #### C VDTBH #### [facility] [address] [place] [address] Dr. Manfred Brooks Potassium [Moles/Vol] 3.6 mmol/L Normal 3.5-5.1 [facility] Comment on above: Performed By: #### C VDTBH #### [facility] [address] [place] [address] Dr. Manfred Brooks Protein [Mass/Vol] 6.3 g/dL Critically low 6.4-8.2 [facility] Comment on above: Performed By: #### C VDTBH #### [facility] [address] [place] [address] Dr. Manfred Brooks Sodium [Moles/Vol] 143 mmol/L Normal 136-145 [facility] Comment on above: Performed By: #### C VDTBH #### [facility] [address] [place] [address] Dr. Manfred Brooks Urea nitrogen [Mass/Vol] 19.0 mg/dL Critically high 7.0-18.0 [facility] Comment on above: Performed By: #### C VDTBH #### [facility] [address] [place] [address] Dr. Manfred Brooks Urea nitrogen/Creatinine [Mass ratio] 24.7 mg/mg Normal [facility] Comment on above: Performed By: #### C VDTBH #### [facility] [address] [place] [address] Dr. Manfred Brooks BNPon 01-06-2023 Natriuretic peptide B (Bld) [Mass/Vol] 186.0 pg/mL Normal <=1,800.0 [facility] Comment on above: Performed By: #### E MILTON HOGAN #### [facility] [address] [place] [address] Dr. Manfred Brooks CBC AUTO DIFFon 01-06-2023 BASO # 0.1 103/ul Normal 0.0-0.1 [facility] Comment on above: Performed By: #### B GRINDING MACHINE OPERATOR PORTABLE, CMP #### [facility] [address] [place] [address] Dr. Manfred Brooks Basophils/100 WBC (Bld) 1.2 % Normal 0.2-2.0 [facility] Comment on above: Performed By: #### B GRINDING MACHINE OPERATOR PORTABLE, CMP #### [facility] [address] [place] [address] Dr. Manfred Brooks EO # 0.1 103/ul Normal 0.0-0.7 [facility] Comment on above: Performed By: #### B GRINDING MACHINE OPERATOR PORTABLE, CMP #### [facility] [address] [place] [address] Dr. Manfred Brooks Eosinophils/100 WBC (Bld) 2.1 % Normal 0.9-7.0 [facility] Comment on above: Performed By: #### B GRINDING MACHINE OPERATOR PORTABLE, CMP #### [facility] [address] [place] [address] Dr. Manfred Brooks Erythrocyte distribution width (RBC) [Ratio] 15.2 % Critically high 11.0-15.0 [facility] Comment on above: Performed By: #### B GRINDING MACHINE OPERATOR PORTABLE, CMP #### [facility] [address] [place] [address] Dr. Manfred Brooks Hematocrit (Bld) [Volume fraction] 42.3 % Normal 36.0-48.0 [facility] Comment on above: Performed By: #### B GRINDING MACHINE OPERATOR PORTABLE, CMP #### [facility] [address] [place] [address] Dr. Manfred Brooks Hemoglobin (Bld) [Mass/Vol] 13.8 g/dL Normal 12.0-16.0 [facility] Comment on above: Performed By: #### B GRINDING MACHINE OPERATOR PORTABLE, CMP #### [facility] [address] [place] [address] Dr. Manfred Brooks IG # 0.01 10e3/ul Normal 0.00-0.03 [facility] Comment on above: Performed By: #### B GRINDING MACHINE OPERATOR PORTABLE, CMP #### [facility] [address] [place] [address] Dr. Manfred Brooks IG % 0.2 % Normal 0.0-0.5 [facility] Comment on above: Performed By: #### B GRINDING MACHINE OPERATOR PORTABLE, CMP #### [facility] [address] [place] [address] Dr. Manfred Brooks LYMPH # 2.1 103/ul Normal 1.2-3.8 [facility] Comment on above: Performed By: #### B GRINDING MACHINE OPERATOR PORTABLE, CMP #### [facility] [address] [place] [address] Dr. Manfred Brooks Lymphocytes/100 WBC (Bld) 35.6 % Normal 20.5-60.0 [facility] Comment on above: Performed By: #### B GRINDING MACHINE OPERATOR PORTABLE, CMP #### [facility] [address] [place] [address] Dr. Manfred Brooks MANUAL DIFF REQ NO Normal [facility] Comment on above: Performed By: #### B GRINDING MACHINE OPERATOR PORTABLE, CMP #### [facility] [address] [place] [address] Dr. Manfred Brooks MCH (RBC) [Entitic mass] 29.1 pg Normal 26.7-34.0 [facility] Comment on above: Performed By: #### B GRINDING MACHINE OPERATOR PORTABLE, CMP #### [facility] [address] [place] [address] Dr. Manfred Brooks MCHC (RBC) [Mass/Vol] 32.6 g/dL Normal 29.9-35.2 [facility] Comment on above: Performed By: #### B GRINDING MACHINE OPERATOR PORTABLE, CMP #### [facility] [address] [place] [address] Dr. Manfred Brooks MCV (RBC) [Entitic vol] 89.2 fL Normal 81.0-99.0 [facility] Comment on above: Performed By: #### B GRINDING MACHINE OPERATOR PORTABLE, CMP #### [facility] [address] [place] [address] Dr. Manfred Brooks MONO # 0.5 103/ul Normal 0.3-0.8 [facility] Comment on above: Performed By: #### B GRINDING MACHINE OPERATOR PORTABLE, CMP #### [facility] [address] [place] [address] Dr. Manfred Brooks Monocytes/100 WBC (Bld) 9.0 % Normal 1.7-12.0 [facility] Comment on above: Performed By: #### B GRINDING MACHINE OPERATOR PORTABLE, CMP #### [facility] [address] [place] [address] Dr. Manfred Brooks NEUT # 3.0 103/ul Normal 1.4-6.5 [facility] Comment on above: Performed By: #### B GRINDING MACHINE OPERATOR PORTABLE, CMP #### [facility] [address] [place] [address] Dr. Manfred Brooks Neutrophils/100 WBC (Bld) 51.9 % Normal 43.0-75.0 [facility] Comment on above: Performed By: #### B GRINDING MACHINE OPERATOR PORTABLE, CMP #### [facility] [address] [place] [address] Dr. Manfred Brooks Platelet mean volume (Bld) [Entitic vol] 10.1 fL Normal 9.5-13.5 [facility] Comment on above: Performed By: #### B GRINDING MACHINE OPERATOR PORTABLE, CMP #### [facility] [address] [place] [address] Dr. Manfred Brooks PLT 290 103/ul Normal 150-450 [facility] Comment on above: Performed By: #### B GRINDING MACHINE OPERATOR PORTABLE, CMP #### [facility] [address] [place] [address] Dr. Manfred Brooks RBC 4.74 106/ul Normal 4.20-5.40 [facility] Comment on above: Performed By: #### B GRINDING MACHINE OPERATOR PORTABLE, CMP #### [facility] [address] [place] [address] Dr. Manfred Brooks WBC 5.8 103/ul Normal 4.0-11.0 [facility] Comment on above: Performed By: #### B GRINDING MACHINE OPERATOR PORTABLE, CMP #### [facility] [address] [place] [address] Dr. Manfred Brooks [facility]11 SARS-CoV-2 (COVID-19) RNA DAMIR+probe Ql (Unsp spec) Not detected Normal NOT DETECTED [facility] Comment on above: Result Comment: When diagnostic [...] for this test is supported by the [employer] of Health and Human Service's declaration that [...] longer be used). Performed By: #### C [facility] #### [facility] [address] [place] [address] Dr. Manfred Brooks ECHOCARDIO M/2D COMPLETEon 0 01-06-2023 ECHOCARDIO M/2D COMPLETE Patient: BETTY CAMARENA Exam Date: 01/06/2023 : 1940 Gender:F Ordering : DR CAM BATES . Admission #: [id number] Family : DR DENISA ALEJANDRE M.D. Order #: [id number] CLICK HERE TO VIEW EXAM ECHOCARDIOGRAM REPORT [...] M.D. on 01/06/2023 at 17:34 Normal [facility] FREE T3on 01-06-2023 FREE T3 5.79 pg/mlL Critically high 2.18-3.98 [facility] Comment on above: Performed By: #### C [facility] #### [facility] [address] [place] [address] Dr. Manfred Brooks LACTATE/LACTIC ACIDon 2022 Lactate [Moles/Vol] 1.6 mmol/L Normal 0.4-2.0 [facility] Comment on above: Performed By: #### B MP, HSTROPN, CK #### [facility] [address] [place] [address] Dr. Manfred Brooks PROF 14(COMP METB)on 023 Albumin [Mass/Vol] 4.1 g/dL Normal 3.4-5.0 [facility] Comment on above: Performed By: #### ANU BENOITRO #### [facility] [address] [place] [address] Dr. Manfred Brooks Albumin/Globulin [Mass ratio] 1.2 {ratio} Normal [facility] Comment on above: Performed By: #### ANU BENOITRO #### [facility] [address] [place] [address] Dr. Manfred Brooks ALP [Catalytic activity/Vol] 74 U/L Normal 46-116 [facility] Comment on above: Performed By: #### ANU BENOITRO #### [facility] [address] [place] [address] Dr. Manfred Brooks ALT [Catalytic activity/Vol] 29 U/L Normal 14-59 [facility] Comment on above: Performed By: #### ANU BENOITRO #### [facility] [address] [place] [address] Dr. Manfred Brooks Anion gap [Moles/Vol] 13.8 mmol/L Normal [facility] Comment on above: Performed By: #### ANU BENOITRO #### [facility] [address] [place] [address] Dr. Manfred Brooks AST [Catalytic activity/Vol] 19 U/L Normal 15-37 [facility] Comment on above: Performed By: #### ANU BENOITRO #### [facility] [address] [place] [address] Dr. Manfred Brooks Bilirubin [Mass/Vol] 0.4 mg/dL Normal 0.2-1.0 [facility] Comment on above: Performed By: #### E RUR, UMICRO #### [facility] [address] [address] [address] Manfred Brooks Calcium [Mass/Vol] 9.6 mg/dL Normal 8.5-10.1 [facility] Comment on above: Performed By: #### E JAMILAR, UMICRO #### [facility] [address] [address] [address] Manfred Brooks Chloride [Moles/Vol] 108 mmol/L Critically high 98-107 [facility] Comment on above: Performed By: #### E SAMIRA, UMICRO #### [facility] [address] [address] [address] Manfred Brooks CO2 [Moles/Vol] 31.0 mmol/L Normal 21.0-32.0 [facility] Comment on above: Performed By: #### Nikolas HOGAN, UMICRO #### [facility] [address] [place] [address] Dr. Manfred Brooks Creatinine [Mass/Vol] 0.80 mg/dL Normal 0.55-1.02 [facility] Comment on above: Performed By: #### Nikolas HOGAN, UMICRO #### [facility] [address] [place] [address] Dr. Manfred Brooks EGFR-AF FILIPINO >60 Normal >=60 [facility] Comment on above: Performed By: #### Nikolas HOGAN, UMICRO #### [facility] [address] [place] [address] Dr. Manfred Brooks EGFR-NON AF FILIPINO >60 Normal >=60 [facility] Comment on above: Performed By: #### E SAMIRA, UMICRO #### [facility] [address] [address] [address] Manfred Brooks Globulin (S) [Mass/Vol] 3.3 g/dL Normal [facility] Comment on above: Performed By: #### E SAMIRA, UMICRO #### [facility] [address] [place] [address] Dr. Manfred Brooks Glucose [Mass/Vol] 132 mg/dL Critically high 74-106 [facility] Comment on above: Performed By: #### ANU BENOITRO #### [facility] [address] [place] [address] Dr. Manfred Brooks Potassium [Moles/Vol] 3.8 mmol/L Normal 3.5-5.1 [facility] Comment on above: Performed By: #### Nikolas HOGAN UMICRO #### [facility] [address] [place] [address] Dr. Manfred Brooks Protein [Mass/Vol] 7.4 g/dL Normal 6.4-8.2 [facility] Comment on above: Performed By: #### Nikolas HOGAN UMICRO #### [facility] [address] [place] [address] Dr. Manfred Brooks Sodium [Moles/Vol] 149 mmol/L Critically high 136-145 [facility] Comment on above: Performed By: #### ANU BENOITRO #### [facility] [address] [place] [address] Dr. Manfred Brooks Urea nitrogen [Mass/Vol] 20.0 mg/dL Critically high 7.0-18.0 [facility] Comment on above: Performed By: #### ANU BENOITRO #### [facility] [address] [place] [address] Dr. Manfred Brooks Urea nitrogen/Creatinine [Mass ratio] 25.0 mg/mg Normal [facility] Comment on above: Performed By: #### ANU BENOITRO #### [facility] [address] [place] [address] Dr. Manfred Brooks PROTIMEon 01-06-2023 INR Coag (PPP) [Relative time] 0.99 {INR} Normal [facility] Comment on above: Performed By: #### B MP, VENESSATRDANNIELLE, CK #### [facility] [address] [place] [address] Dr. Manfred Brooks INR GUIDELINES SEE BELOW Normal [facility] Comment on above: Result Comment: JUSTYN RED INR: 2.0 - 3.0 CONDITIONS NOT LISTED BELOW 2.5 - 3.5 FOR PROSTHETIC HEART VALVE REPLACEMENT 2.5 - 3.5 RECURRENT THROMBOSIS Performed By: #### B MP, HSTROPN, CK #### [facility] [address] [place] [address] Dr. Manfred Brooks PT Coag (PPP) [Time] 10.5 s Normal 9.0-11.6 [facility] Comment on above: Performed By: #### B MP, HSTROPN, CK #### [facility] [address] [place] [address] Dr. Manfred Brooks PTTon 01-06-2023 aPTT Coag (Bld) [Time] 28.9 s Normal 22.3-36.2 [facility] Comment on above: Performed By: #### B MP, HSTROPN, CK #### [facility] [address] [place] [address] Dr. Manfred Brooks T4on 01-06-2023 T4 [Mass/Vol] 8.00 ug/dL Normal 4.80-13.90 [facility] Comment on above: Performed By: #### B GRINDING MACHINE OPERATOR PORTABLE, CMP #### [facility] [address] [place] [address] Dr. Manfred Brooks TROPONIN, HIGH SENSITIVITYon 01-06-2023 HSTROP 18.1 pg/mL Normal 4.0-51.3 The [facility] Comment on above: Result Comment: CUT- OFF POINTS HAVE BEEN ESTABLISHED BASED ON THE FOURTH UNIVERSAL DEFINITIONS OF MYOCARDIAL INFARCTION. THE UPPER REFERENCE LIMIT (URL) OF TROPONIN, DEFINED THE 99TH PERCENTILE OF cTnI DISTRIBUTION IN A REFERENCE POPULATION, HAS BEEN CONFIRMED THE DECISION THRESHOLD FOR NM DIAGNOSIS. Performed By: #### E RUR, UMICRO #### [facility] [address] [place] [address] Dr. Manfred Brooks HSTROP 10.5 pg/mL Normal 4.0-51.3 The [facility] Comment on above: Result Comment: CUT- OFF POINTS HAVE BEEN ESTABLISHED BASED ON THE FOURTH UNIVERSAL DEFINITIONS OF MYOCARDIAL INFARCTION. THE UPPER REFERENCE LIMIT (URL) OF TROPONIN, DEFINED THE 99TH PERCENTILE OF cTnI DISTRIBUTION IN A REFERENCE POPULATION, HAS BEEN CONFIRMED THE DECISION THRESHOLD FOR NM DIAGNOSIS. Performed By: #### E RUR, UMICRO #### [facility] [address] [place] [address] Dr. Manfred Brooks TSHon 01-06-2023 TSH 0.567 uIU/mL Normal 0.358-3.740 [facility] Comment on above: Performed By: #### C VDTB #### [facility] [address] [place] [address] Dr. Manfred Brooks XR CHEST 1 Von [...] ALLY MCKEON Date: 2023-01-06 07:11 Normal [facility] PROF CHEM 8 (BAS METB)on Anion gap [Moles/Vol] 13.1 mmol/L Normal [facility] Comment on above: Performed By: #### ANU BENOITRO #### [facility] [address] [place] [address] Dr. Manfred Brooks Calcium [Mass/Vol] 9.3 mg/dL Normal 8.5-10.1 The [facility] Comment on above: Performed By: #### ANU BENOITRO #### [facility] [address] [place] [address] Dr. Manfred Brooks Chloride [Moles/Vol] 104 mmol/L Normal 98-107 [facility] Comment on above: Performed By: #### ANU BENOITRO #### [facility] [address] [place] [address] Dr. Manfred Brooks CO2 [Moles/Vol] 29.7 mmol/L Normal 21.0-32.0 The [facility] Comment on above: Performed By: #### E RUR, UMICRO #### [facility] [address] [address] [address] Manrfed Brooks Creatinine [Mass/Vol] 0.72 mg/dL Normal 0.55-1.02 [facility] Comment on above: Performed By: #### E RUR, UMICRO #### [facility] [address] [address] [address] Manfred Brooks EGFR-AF FILIPINO >60 Normal >=60 [facility] Comment on above: Performed By: #### E RUR, UMICRO #### [facility] [address] [address] [address] Manfred Brooks EGFR-NON AF FILIPINO >60 Normal >=60 [facility] Comment on above: Performed By: #### E RUR, UMICRO #### [facility] [address] [place] [address] Dr. Manfred Brooks Glucose [Mass/Vol] 129 mg/dL Critically high 74-106 T [facility] Comment on above: Performed By: #### E JAMILAR, UMICRO #### [facility] [address] [place] [address] Dr. Manfred Brooks Potassium [Moles/Vol] 4.8 mmol/L Normal 3.5-5.1 [facility] Comment on above: Result Comment: spec imen slightly hemolysed. suggest repeat. Performed By: #### E RUR, UMICRO #### [facility] [address] [place] [address] Dr. Manfred rBooks Sodium [Moles/Vol] 142 mmol/L Normal 136-145 [facility] Comment on above: Performed By: #### E RUR, UMICRO #### [facility] [address] [address] [address] Manfred Brooks Urea nitrogen [Mass/Vol] 17.0 mg/dL Normal 7.0-18.0 [facility] Comment on above: Performed By: #### E RUR, UMICRO #### [facility] [address] [address] [address] Manfred Brooks Urea nitrogen/Creatinine [Mass ratio] 23.6 mg/mg Normal [facility] Comment on above: Performed By: #### E MILTON HOGAN #### [facility] [address] [address] [address] Manfred Brooks BNPon 05-16-2022 Natriuretic peptide B (Bld) [Mass/Vol] 322.0 pg/mL Normal <=1,800.0 [facility] Comment on above: Performed By: #### B MP, HSTROPN, CK #### [facility] [address] [address] [address] Manfred Brooks CARDIAC TELMA ADMITon 022 CK [Catalytic activity/Vol] 109 U/L Normal 26-192 [facility] Comment on above: Performed By: #### B MP, HSTROPN, CK #### [facility] [address] [address] [address] Manfred Brooks CK.MB [Mass/Vol] 1.43 ng/mL Normal <=3.60 [facility] Comment on above: Performed By: #### B MP, HSTROPN, CK #### [facility] [address] [place] [address] Dr. Manfred Brooks HSTROP 19.6 pg/mL Normal 4.0-51.3 The [facility] Comment on above: Result Comment: CUT- OFF POINTS HAVE BEEN ESTABLISHED BASED ON THE FOURTH UNIVERSAL DEFINITIONS OF MYOCARDIAL INFARCTION. THE UPPER REFERENCE LIMIT (URL) OF TROPONIN, DEFINED THE 99TH PERCENTILE OF cTnI DISTRIBUTION IN A REFERENCE POPULATION, HAS BEEN CONFIRMED THE DECISION THRESHOLD FOR NM DIAGNOSIS. Performed By: #### B MP, HSTROPN, CK #### [facility] [address] [place] [address] Dr. Manfred Brooks MAHOGANY 71 ng/mL Normal 9-82 [facility] Comment on above: Performed By: #### B MP, HSTROPN, CK #### [facility] [address] [address] [address] Manfred Brooks CBC AUTO DIFFon 05-16-2022 BASO # 0.1 103/ul Normal 0.0-0.1 [facility] Comment on above: Performed By: #### B MANN HSTROPN, CK #### [facility] [address] [place] [address] Dr. Manfred Brooks Basophils/100 WBC (Bld) 1.4 % Normal 0.2-2.0 [facility] Comment on above: Performed By: #### B MANN HSTROPN, CK #### [facility] [address] [place] [address] Dr. Manfred Brooks EO # 0.1 103/ul Normal 0.0-0.7 The [facility] Comment on above: Performed By: #### B MANN HSTROPN, CK #### [facility] [address] [place] [address] Dr. Manfred Brooks Eosinophils/100 WBC (Bld) 2.3 % Normal 0.9-7.0 [facility] Comment on above: Performed By: #### B MANN HSTROPN, CK #### [facility] [address] [place] [address] Dr. Manfred Brooks Erythrocyte distribution width (RBC) [Ratio] 14.4 % Normal 11.0-15.0 [facility] Comment on above: Performed By: #### B MANN HSTROPN, CK #### [facility] [address] [place] [address] Dr. Manfred Brooks Hematocrit (Bld) [Volume fraction] 38.1 % Normal 36.0-48.0 [facility] Comment on above: Performed By: #### B MANN HSTROPN, CK #### [facility] [address] [place] [address] Dr. Manfred Brooks Hemoglobin (Bld) [Mass/Vol] 12.1 g/dL Normal 12.0-16.0 [facility] Comment on above: Performed By: #### B MANN HSTROPN, CK #### [facility] [address] [place] [address] Dr. Manfred Brooks IG # 0.01 10e3/ul Normal 0.00-0.03 [facility] Comment on above: Performed By: #### B MP, HSTROPN, CK #### [facility] [address] [place] [address] Dr. Manfred Brooks IG % 0.2 % Normal 0.0-0.5 [facility] Comment on above: Performed By: #### B MP, HSTROPN, CK #### [facility] [address] [place] [address] Dr. Manfred Brooks LYMPH # 1.0 103/ul Critically low 1.2-3.8 [facility] Comment on above: Performed By: #### B MP, HSTROPN, CK #### [facility] [address] [place] [address] Dr. Manfred Brooks Lymphocytes/100 WBC (Bld) 22.4 % Normal 20.5-60.0 [facility] Comment on above: Performed By: #### B MP, HSTROPN, CK #### [facility] [address] [place] [address] Dr. Manferd Brooks MANUAL DIFF REQ NO Normal [facility] Comment on above: Performed By: #### B MP, HSTROPN, CK #### [facility] [address] [place] [address] Dr. Manfred Brooks MCH (RBC) [Entitic mass] 28.9 pg Normal 26.7-34.0 [facility] Comment on above: Performed By: #### B MP, HSTROPN, CK #### [facility] [address] [place] [address] Dr. Manfred Brooks MCHC (RBC) [Mass/Vol] 31.8 g/dL Normal 29.9-35.2 [facility] Comment on above: Performed By: #### B MP, HSTROPN, CK #### [facility] [address] [place] [address] Dr. Manfred Brooks MCV (RBC) [Entitic vol] 90.9 fL Normal 81.0-99.0 [facility] Comment on above: Performed By: #### B MP, HSTROPN, CK #### [facility] [address] [address] [address] Manfred Brooks MONO # 0.5 103/ul Normal 0.3-0.8 [facility] Comment on above: Performed By: #### B MP, HSTROPN, CK #### [facility] [address] [place] [address] Dr. Manfred Brooks Monocytes/100 WBC (Bld) 10.2 % Normal 1.7-12.0 [facility] Comment on above: Performed By: #### B MP, HSTROPN, CK #### [facility] [address] [place] [address] Dr. Manfred Brooks NEUT # 2.8 103/ul Normal 1.4-6.5 [facility] Comment on above: Performed By: #### B MP, HSTROPN, CK #### [facility] [address] [place] [address] Dr. Manfred Brooks Neutrophils/100 WBC (Bld) 63.5 % Normal 43.0-75.0 [facility] Comment on above: Performed By: #### B MP, HSTROPN, CK #### [facility] [address] [address] [address] Manfred Brooks Platelet mean volume (Bld) [Entitic vol] 10.1 fL Normal 9.5-13.5 [facility] Comment on above: Performed By: #### B MP, HSTROPN, CK #### [facility] [address] [place] [address] Dr. Manfred Brooks PLT 268 103/ul Normal 150-450 [facility] Comment on above: Performed By: #### B MP, HSTROPN, CK #### [facility] [address] [address] [address] Manfred Brooks RBC 4.19 106/ul Critically low 4.20-5.40 [facility] Comment on above: Performed By: #### B MP, HSTROPN, CK #### [facility] [address] [address] [address] Manfred Brooks WBC 4.4 103/ul Normal 4.0-11.0 [facility] Comment on above: Performed By: #### B , HSTROPJim, #### [facility] [address] [address] [address] STROKE HEAD WOon [...] MCKINLEY TAYLOR Date: 2022-05-16 12:01 Normal [facility] CTA NECK WO W CONon 05-16-20 22 [...] ALLY MCKEON Date: 2022-05-16 13:32 Normal [facility] CULTURE URINEon 05-16-2022 CULTURE URINE Culture Observations : LIGHT GROWTH OF MIXED GENITAL BETO. NO POTENTIAL PATHOGENS SEEN. Normal [facility] Comment on above: Performed By: #### B MP, HSTROPN, CK #### [facility] [address] [address] [address] Manfred Brooks Covid-19 PCR ([facility])on SARS-CoV-2 (COVID-19) RNA DAMIR+probe Ql (Unsp spec) Not detected Normal NOT DETECTED [facility] Comment on above: Result Comment: When diagnostic [...] for this test is supported by the [employer] and Human Service's declaration that [...] used). Performed By: #### C VDTBH #### [facility] [address] [place], [place] [address] Dr. Mafnred Brooks DIGOXINon 05-16-2022 DIG 2.3 ng/mL Critically high 0.9-2.0 [facility] Comment on above: Result Comment: repe ated Performed By: #### B MP, HSTROPN, CK #### [facility] [address] [place] [address] Dr. Manfred Brooks ER URINE PROFILEon 2 Bilirubin Ql (U) Negative Normal NEGATIVE [facility] Comment on above: Performed By: #### Nikolas HOGAN, UMICRO #### [facility] [address] [place] [address] Dr. Manfred Brooks Clarity (U) CLEAR Normal CLEAR [facility] Comment on above: Performed By: #### Nikolas HOGAN, UMICRO #### [facility] [address] [place] [address] Dr. Manfred Brooks Color (U) LT. YELLOW Normal YELLOW [facility] Comment on above: Performed By: #### Nikolas HOGAN UMICRO #### [facility] [address] [place] [address] Dr. Manfred JOHN A micrscopic examination will be performed if indicated. Normal [facility] Comment on above: Performed By: #### Nikolas HOGAN UMICRO #### [facility] [address] [place] [address] Dr. Manfred Brooks Glucose Ql (U) Negative Normal NEGATIVE [facility] Comment on above: Performed By: #### Nikolas HOGAN UMICRO #### [facility] [address] [place] [address] Dr. Manfred Brooks Hemoglobin Ql (U) Negative Normal NEGATIVE [facility] Comment on above: Performed By: #### Nikolas HOGAN UMICRO #### [facility] [address] [place] [address] Dr. Manfred Brooks Ketones Ql (U) Negative Normal NEGATIVE [facility] Comment on above: Performed By: #### Nikolas HOGAN UMICRO #### [facility] [address] [place] [address] Dr. Manfred Brooks LEUKOCYTES MODERATE Abnormal NEGATIVE [facility] Comment on above: Performed By: #### Nikolas HOGAN UMICRO #### [facility] [address] [place] [address] Dr. Manfred Brooks Nitrite Ql (U) Negative Normal NEGATIVE [facility] Comment on above: Performed By: #### Nikolas HOGAN UMICRO #### [facility] [address] [place] [address] Dr. Manfred Brooks pH (U) 6.5 [pH] Normal 5-9 [facility] Comment on above: Performed By: #### Nikolas HOGAN UMICRO #### [facility] [address] [place] [address] Dr. Manfred Brooks SPEC GRAVITY <=1.005 Abnormal 1.005-<=1.025 [facility] Comment on above: Performed By: #### Nikolas HOGAN UMICRO #### [facility] [address] [place] [address] Dr. Manfred Brooks UA PROTEIN Negative Normal NEGATIVE/ TRACE [facility] Comment on above: Performed By: #### Nikolas HOGAN UMICRO #### [facility] [address] [place] [address] Dr. Manfred Brooks UR MICRO IND INDICATED Normal [facility] Comment on above: Performed By: #### Nikolas HOGAN UMICRO #### [facility] [address] [place] [address] Dr. Manfred Brooks Urobilinogen Qn (U) 0.2 {Antionette'U}/dL Normal 0.2 - 1. 0 [facility] Comment on above: Performed By: #### Nikolas HOGAN UMICRO #### [facility] [address] [place] [address] Dr. Manfred Brooks POINT OF CARE GLUCOSEon Glucose [Mass/Vol] 109 mg/dL Critically high 74-106 T [facility] Comment on above: Performed By: #### P OCGLUC #### [facility] [address] [place] [address] Dr. Manfred Brooks PROF 14(COMP METB)on Albumin [Mass/Vol] 3.9 g/dL Normal 3.4-5.0 [facility] Comment on above: Performed By: #### B MP, HSTROPN, CK #### [facility] [address] [address] [address] Manfred Brooks Albumin/Globulin [Mass ratio] 1.3 {ratio} Normal [facility] Comment on above: Performed By: #### B MP, HSTROPN, CK #### [facility] [address] [address] [address] Manfred Brooks ALP [Catalytic activity/Vol] 58 U/L Normal 46-116 [facility] Comment on above: Performed By: #### B MP, HSTROPN, CK #### [facility] [address] [address] [address] Manfred Brooks ALT [Catalytic activity/Vol] 28 U/L Normal 14-59 [facility] Comment on above: Performed By: #### B MP, HSTROPN, CK #### [facility] [address] [place] [address] Dr. Manfred Brooks Anion gap [Moles/Vol] 11.4 mmol/L Normal [facility] Comment on above: Performed By: #### B MP, HSTROPN, CK #### [facility] [address] [address] [address] Manfred Brooks AST [Catalytic activity/Vol] 18 U/L Normal 15-37 [facility] Comment on above: Performed By: #### B MP, HSTROPN, CK #### [facility] [address] [address] [address] Manfred Brooks Bilirubin [Mass/Vol] 0.6 mg/dL Normal 0.2-1.0 [facility] Comment on above: Performed By: #### B MP, HSTROPN, CK #### [facility] [address] [address] [address] Manfred Brooks Calcium [Mass/Vol] 8.8 mg/dL Normal 8.5-10.1 [facility] Comment on above: Performed By: #### B MP, HSTROPN, CK #### [facility] [address] [address] [address] Manfred Brooks Chloride [Moles/Vol] 106 mmol/L Normal 98-107 [facility] Comment on above: Performed By: #### B MANN HSTROPN, CK #### [facility] [address] [place] [address] Dr. Manfred Brooks CO2 [Moles/Vol] 31.3 mmol/L Normal 21.0-32.0 [facility] Comment on above: Performed By: #### B MP HSTROPN, CK #### [facility] [address] [place] [address] Dr. Manfred Brooks Creatinine [Mass/Vol] 0.76 mg/dL Normal 0.55-1.02 [facility] Comment on above: Performed By: #### B MANN HSTROPN, CK #### [facility] [address] [place] [address] Dr. Manfred Brooks EGFR-AF FILIPINO >60 Normal >=60 [facility] Comment on above: Performed By: #### B MANN HSTROPN, CK #### [facility] [address] [place] [address] Dr. Manfred Brooks EGFR-NON AF FILIPINO >60 Normal >=60 [facility] Comment on above: Performed By: #### B MANN HSTROPN, CK #### [facility] [address] [place] [address] Dr. Manfred Brooks Globulin (S) [Mass/Vol] 2.9 g/dL Normal [facility] Comment on above: Performed By: #### B MANN HSTROPN, CK #### [facility] [address] [place] [address] Dr. Manfred Brooks Glucose [Mass/Vol] 122 mg/dL Critically high 74-106 [facility] Comment on above: Performed By: #### B MANN HSTROPN, CK #### [facility] [address] [place] [address] Dr. Manfred Brooks Potassium [Moles/Vol] 3.7 mmol/L Normal 3.5-5.1 [facility] Comment on above: Performed By: #### B MANN, HSTROPN, CK #### [facility] [address] [place] [address] Dr. Manfred Brooks Protein [Mass/Vol] 6.8 g/dL Normal 6.4-8.2 [facility] Comment on above: Performed By: #### B MP, HSTROPN, CK #### [facility] [address] [place] [address] Dr. Manfred Brooks Sodium [Moles/Vol] 145 mmol/L Normal 136-145 [facility] Comment on above: Performed By: #### B MP, HSTROPN, CK #### [facility] [address] [place] [address] Dr. Manfred Brooks Urea nitrogen [Mass/Vol] 18.0 mg/dL Normal 7.0-18.0 [facility] Comment on above: Performed By: #### B MANN HSTROPJim, CK #### [facility] [address] [place] [address] Dr. Manfred Brooks Urea nitrogen/Creatinine [Mass ratio] 23.7 mg/mg Normal [facility] Comment on above: Performed By: #### B MANN, HSTROPN, CK #### [facility] [address] [place] [address] Dr. Manfred Brooks PROTIMEon 05-16-2022 INR Coag (PPP) [Relative time] 1.08 {INR} Normal [facility] Comment on above: Performed By: #### MILTON BENOIT #### [facility] [address] [place] [address] Dr. Manfred Brooks INR GUIDELINES SEE BELOW Normal [facility] Comment on above: Result Comment: JUSTYN RED INR: 2.0 - 3.0 CONDITIONS NOT LISTED BELOW 2.5 - 3.5 FOR PROSTHETIC HEART VALVE REPLACEMENT 2.5 - 3.5 RECURRENT THROMBOSIS Performed By: #### MILTON BENOIT #### [facility] [address] [place] [address] Dr. Manfred Brooks PT Coag (PPP) [Time] 11.6 s Normal 9.0-11.6 [facility] Comment on above: Performed By: #### Nikolas HOGAN UMICRO #### [facility] [address] [place] [address] Dr. Manfred Brooks PTTon 05-16-2022 aPTT Coag (Bld) [Time] 28.1 s Normal 22.3-36.2 [facility] Comment on above: Performed By: #### E RUR, UMICRO #### [facility] [address] [place] [address] Dr. Manfred Brooks TSHon 05-16-2022 TSH 0.320 uIU/mL Critically low 0.358-3.740 [facility] Comment on above: Performed By: #### B MP, HSTROPN, CK #### [facility] [address] [place] [address] Dr. Manfred Brooks URINE MICROSCOPIC ONLYon BACTERIA TRACE Abnormal NONE SEEN [facility] Comment on above: Performed By: #### E RUR UMICRO #### [facility] [facility] [address] [place] [address] Dr. Manfred Brooks Bacteria identified Cx Nom (U) INDICATED Normal [facility] Comment on above: Performed By: #### E SAMIRA, UMICRO #### [facility] [address] [place] [address] Dr. Manfred Brooks CAST NONE SEEN Normal NONE SEEN [facility] Comment on above: Performed By: #### E RUR, UMICRO #### [facility] [address] [place] [address] Dr. Manfred Brooks Crystals LM Nom (Urine sed) NONE SEEN Normal NONE SEEN [facility] Comment on above: Performed By: #### E RUR, UMICRO #### [facility] [address] [place] [address] Dr. Manfred Brooks Epithelial cells LM Ql (Urine sed) MODERATE Abnormal NONE SEEN /RARE [facility] Comment on above: Performed By: #### E RUR, UMICRO #### [facility] [address] [place] [address] Dr. Manfred Brooks MUCOUS NONE SEEN Normal NONE SEEN [facility] Comment on above: Performed By: #### MILTON BENOIT #### [facility] [address] [place] [address] Dr. Manfred Brooks RBC NONE SEEN Abnormal 0-2 [facility] Comment on above: Performed By: #### MILTON BENOIT #### [facility] [address] [place] [address] Dr. Manfred Brooks WBC 10-20 Abnormal NONE SEEN [facility] Comment on above: Performed By: #### ANU BENOITRO #### [facility] [address] [place] [address] Dr. Manfred Brooks XR CHEST 1 Von [...] ALEJANDRO BLACKMAN Date: 2022-05-16 12:58 Normal [facility] T3, TOTAL (TRIIODOTHYRONINE) on 04-22-2022 T3, TOTAL 85 ng/dL Normal 71-180 [facility] Comment on above: Performed By: #### C VDTBH #### [facility] [address] [place] [address] Dr. Manfred Brooks BNPon 04-21-2022 Natriuretic peptide B (Bld) [Mass/Vol] 486.0 pg/mL Normal <=1,800.0 [facility] Comment on above: Performed By: #### B GRINDING MACHINE OPERATOR PORTABLE, CMP #### [facility] [address] [place] [address] Dr. Manfred Brooks CBC AUTO DIFFon 04-21-2022 BASO # 0.1 103/ul Normal 0.0-0.1 [facility] Comment on above: Performed By: #### E MILTON HOGAN #### [facility] [address] [place] [address] Dr. Manfred Brooks Basophils/100 WBC (Bld) 1.0 % Normal 0.2-2.0 [facility] Comment on above: Performed By: #### Nikolas HOGAN UMICRO #### [facility] [address] [place] [address] Dr. Manfred Brooks EO # 0.2 103/ul Normal 0.0-0.7 [facility] Comment on above: Performed By: #### SUBHASH BENOITICRO #### [facility] [address] [place] [address] Dr. Manfred Brooks Eosinophils/100 WBC (Bld) 2.7 % Normal 0.9-7.0 [facility] Comment on above: Performed By: #### ANU BENOITRO #### [facility] [address] [place] [address] Dr. Manfred Brooks Erythrocyte distribution width (RBC) [Ratio] 14.2 % Normal 11.0-15.0 [facility] Comment on above: Performed By: #### ANU BENOITRO #### [facility] [address] [place] [address] Dr. Manfred Brooks Hematocrit (Bld) [Volume fraction] 38.7 % Normal 36.0-48.0 [facility] Comment on above: Performed By: #### ANU BENOITRO #### [facility] [address] [place] [address] Dr. Manfred Brooks Hemoglobin (Bld) [Mass/Vol] 12.1 g/dL Normal 12.0-16.0 [facility] Comment on above: Performed By: #### SUBHASH BENOITICRO #### [facility] [address] [place] [address] Dr. Manfred Brooks IG # 0.02 10e3/ul Normal 0.00-0.03 [facility] Comment on above: Performed By: #### ANU BENOITRO #### [facility] [address] [place] [address] Dr. Manfred Brooks IG % 0.3 % Normal 0.0-0.5 [facility] Comment on above: Performed By: #### MILTON BENOIT #### [facility] [address] [place] [address] Dr. Manfred Brooks LYMPH # 2.6 103/ul Normal 1.2-3.8 [facility] Comment on above: Performed By: #### ANU BENOITRO #### [facility] [address] [place] [address] Dr. Manfred Brooks Lymphocytes/100 WBC (Bld) 36.7 % Normal 20.5-60.0 [facility] Comment on above: Performed By: #### MILTON BENOIT #### [facility] [address] [place] [address] Dr. Manfred Brooks MANUAL DIFF REQ NO Normal [facility] Comment on above: Performed By: #### MILTON BENOIT #### [facility] [address] [place] [address] Dr. Manfred Brooks MCH (RBC) [Entitic mass] 29.2 pg Normal 26.7-34.0 [facility] Comment on above: Performed By: #### MILTON BENOIT #### [facility] [address] [place] [address] Dr. Manfred Brooks MCHC (RBC) [Mass/Vol] 31.3 g/dL Normal 29.9-35.2 [facility] Comment on above: Performed By: #### ANU BENOITRO #### [facility] [address] [place] [address] Dr. Manfred Brooks MCV (RBC) [Entitic vol] 93.5 fL Normal 81.0-99.0 [facility] Comment on above: Performed By: #### ANU BENOITRO #### [facility] [address] [place] [address] Dr. Manfred Brooks MONO # 0.7 103/ul Normal 0.3-0.8 [facility] Comment on above: Performed By: #### MILTON BENOIT #### [facility] [address] [place] [address] Dr. Manfred Brooks Monocytes/100 WBC (Bld) 9.5 % Normal 1.7-12.0 [facility] Comment on above: Performed By: #### Nikolas HOGAN UMICRO #### [facility] [address] [place] [address] Dr. Manfred Brooks NEUT # 3.5 103/ul Normal 1.4-6.5 [facility] Comment on above: Performed By: #### Nikolas HOGAN UMICRO #### [facility] [address] [place] [address] Dr. Manfred Brooks Neutrophils/100 WBC (Bld) 49.8 % Normal 43.0-75.0 [facility] Comment on above: Performed By: #### Nikolas HOGAN UMICRO #### [facility] [address] [place] [address] Dr. Manfred Brooks Platelet mean volume (Bld) [Entitic vol] 10.5 fL Normal 9.5-13.5 [facility] Comment on above: Performed By: #### Nikolas HOGAN UMICRO #### [facility] [address] [place] [address] Dr. Manfred Brooks PLT 286 103/ul Normal 150-450 [facility] Comment on above: Performed By: #### Nikolas HOGAN UMICRO #### [facility] [address] [place] [address] Dr. Manfred Brooks RBC 4.14 106/ul Critically low 4.20-5.40 [facility] Comment on above: Performed By: #### Nikolas HOGAN UMICRO #### [facility] [address] [place] [address] Dr. Manfred Brooks WBC 7.0 103/ul Normal 4.0-11.0 [facility] Comment on above: Performed By: #### Nikolas HOGAN, UMICRO #### [facility] [address] [place] [address] Dr. Manfred Brooks DIGOXINon 04-21-2022 DIG <0.2 Critically low 0.9-2.0 [facility] Comment on above: Performed By: #### B MP, HSTROPN, CK #### [facility] [address] [address] [address] Manfred Brooks ECHOCARDIO M/2D COMPLETEon 0 04-21-2022 ECHOCARDIO M/2D COMPLETE Patient: BETTY CAMARENA Exam Date: 04/21/2022 : 1940 Gender:F Ordering : DR CAM BATES . Admission #: [id number] Family : DR GLORIA SALCEDO . Order #: [id number] CLICK HERE TO VIEW EXAM ECHOCARDIOGRAM REPORT [...] M.D. on 04/21/2022 at 19:20 Normal [facility] PROF 14(COMP METB)on 022 Albumin [Mass/Vol] 3.4 g/dL Normal 3.4-5.0 The [facility] Comment on above: Performed By: #### B GRINDING MACHINE OPERATOR PORTABLE, CMP #### [facility] [address] [address] [address] Manfred Brooks Albumin/Globulin [Mass ratio] 1.2 {ratio} Normal [facility] Comment on above: Performed By: #### B GRINDING MACHINE OPERATOR PORTABLE, CMP #### [facility] [address] [address] [address] Manfred Brooks ALP [Catalytic activity/Vol] 62 U/L Normal 46-116 [facility] Comment on above: Performed By: #### B GRINDING MACHINE OPERATOR PORTABLE, CMP #### [facility] [address] [place] [address] Dr. Manfred Brooks ALT [Catalytic activity/Vol] 24 U/L Normal 14-59 [facility] Comment on above: Performed By: #### B GRINDING MACHINE OPERATOR PORTABLE, CMP #### [facility] [address] [address] [address] Manfred Brooks Anion gap [Moles/Vol] 10.4 mmol/L Normal [facility] Comment on above: Performed By: #### B GRINDING MACHINE OPERATOR PORTABLE, CMP #### [facility] [address] [address] [address] Manfred Brooks AST [Catalytic activity/Vol] 9 U/L Critically low 15-37 [facility] Comment on above: Performed By: #### B GRINDING MACHINE OPERATOR PORTABLE, CMP #### [facility] [address] [address] [address] Manfred Brooks Bilirubin [Mass/Vol] 0.3 mg/dL Normal 0.2-1.0 [facility] Comment on above: Performed By: #### B GRINDING MACHINE OPERATOR PORTABLE, CMP #### [facility] [address] [address] [address] Manfred Brooks Calcium [Mass/Vol] 8.5 mg/dL Normal 8.5-10.1 The [facility] Comment on above: Performed By: #### B GRINDING MACHINE OPERATOR PORTABLE, CMP #### [facility] [address] [address] [address] Manfred Brooks Chloride [Moles/Vol] 109 mmol/L Critically high 98-107 [facility] Comment on above: Performed By: #### B GRINDING MACHINE OPERATOR PORTABLE, CMP #### [facility] [address] [place] [address] Dr. Manfred Brooks CO2 [Moles/Vol] 28.5 mmol/L Normal 21.0-32.0 The [facility] Comment on above: Performed By: #### B GRINDING MACHINE OPERATOR PORTABLE, CMP #### [facility] [address] [place] [address] Dr. Manfred Brooks Creatinine [Mass/Vol] 0.83 mg/dL Normal 0.55-1.02 [facility] Comment on above: Performed By: #### B GRINDING MACHINE OPERATOR PORTABLE, CMP #### [facility] [address] [place] [address] Dr. Manfred Brooks EGFR-AF FILIPINO >60 Normal >=60 [facility] Comment on above: Performed By: #### B GRINDING MACHINE OPERATOR PORTABLE, CMP #### [facility] [address] [place] [address] Dr. Manfred Brooks EGFR-NON AF FILIPINO >60 Normal >=60 [facility] Comment on above: Performed By: #### B GRINDING MACHINE OPERATOR PORTABLE, CMP #### [facility] [address] [place] [address] Dr. Manfred Boroks Globulin (S) [Mass/Vol] 2.8 g/dL Normal [facility] Comment on above: Performed By: #### B GRINDING MACHINE OPERATOR PORTABLE, CMP #### [facility] [address] [place] [address] Dr. Manfred Brooks Glucose [Mass/Vol] 107 mg/dL Critically high 74-106 [facility] Comment on above: Performed By: #### B GRINDING MACHINE OPERATOR PORTABLE, CMP #### [facility] [address] [place] [address] Dr. Manfred Brooks Potassium [Moles/Vol] 3.9 mmol/L Normal 3.5-5.1 [facility] Comment on above: Performed By: #### B GRINDING MACHINE OPERATOR PORTABLE, CMP #### [facility] [address] [place] [address] Dr. Manfred Brooks Protein [Mass/Vol] 6.2 g/dL Critically low 6.4-8.2 [facility] Comment on above: Performed By: #### B GRINDING MACHINE OPERATOR PORTABLE, CMP #### [facility] [address] [place] [address] Dr. Manfred Brooks Sodium [Moles/Vol] 144 mmol/L Normal 136-145 [facility] Comment on above: Performed By: #### B GRINDING MACHINE OPERATOR PORTABLE, CMP #### [facility] [address] [place] [address] Dr. Manfred Brooks Urea nitrogen [Mass/Vol] 23.0 mg/dL Critically high 7.0-18.0 [facility] Comment on above: Performed By: #### B GRINDING MACHINE OPERATOR PORTABLE, CMP #### [facility] [address] [place] [address] Dr. Manfred Brooks Urea nitrogen/Creatinine [Mass ratio] 27.7 mg/mg Normal [facility] Comment on above: Performed By: #### B GRINDING MACHINE OPERATOR PORTABLE, CMP #### [facility] [address] [place] [address] Dr. Manfred Brooks BNPon 04-20-2022 Natriuretic peptide B (Bld) [Mass/Vol] 199.0 pg/mL Normal <=1,800.0 [facility] Comment on above: Performed By: #### ANU BENOITRO #### [facility] [address] [place] [address] Dr. Manfred Brooks CARDIAC TELMA 3-6on 2 CK [Catalytic activity/Vol] 55 U/L Normal 26-192 [facility] Comment on above: Performed By: #### Nikolas HOGAN UMICRO #### [facility] [address] [place] [address] Dr. Manfred Brooks CK.MB [Mass/Vol] 1.69 ng/mL Normal <=3.60 [facility] Comment on above: Performed By: #### Nikolas HOGAN UMICRO #### [facility] [address] [place] [address] Dr. Manfred Brooks HSTROP 37.5 pg/mL Normal 4.0-51.3 [facility] Comment on above: Result Comment: CUT- OFF POINTS HAVE BEEN ESTABLISHED BASED ON THE FOURTH UNIVERSAL DEFINITIONS OF MYOCARDIAL INFARCTION. THE UPPER REFERENCE LIMIT (URL) OF TROPONIN, DEFINED THE 99TH PERCENTILE OF cTnI DISTRIBUTION IN A REFERENCE POPULATION, HAS BEEN CONFIRMED THE DECISION THRESHOLD FOR NM DIAGNOSIS. Performed By: #### E JAMILAR, UMICRO #### [facility] [address] [place] [address] Dr. Manfred Brooks CK [Catalytic activity/Vol] 54 U/L Normal 26-192 [facility] Comment on above: Performed By: #### E RUR, UMICRO #### [facility] [address] [place] [address] Dr. Manfred LE.MB [Mass/Vol] 1.12 ng/mL Normal <=3.60 [facility] Comment on above: Performed By: #### E RUR, UMICRO #### [facility] [address] [place] [address] Dr. Manfred Brooks HSTROP 27.5 pg/mL Normal 4.0-51.3 [facility] Comment on above: Result Comment: CUT- OFF POINTS HAVE BEEN ESTABLISHED BASED ON THE FOURTH UNIVERSAL DEFINITIONS OF MYOCARDIAL INFARCTION. THE UPPER REFERENCE LIMIT (URL) OF TROPONIN, DEFINED THE 99TH PERCENTILE OF cTnI DISTRIBUTION IN A REFERENCE POPULATION, HAS BEEN CONFIRMED THE DECISION THRESHOLD FOR NM DIAGNOSIS. Performed By: #### E JAMILAR, UMICRO #### [facility] [address] [place] [address] Dr. Manfred Brooks CARDIAC TELMA ADMITon 022 CK [Catalytic activity/Vol] 64 U/L Normal 26-192 [facility] Comment on above: Performed By: #### E RUR, UMICRO #### [facility] [address] [place] [address] Dr. Manfred LE.MB [Mass/Vol] 1.12 ng/mL Normal <=3.60 [facility] Comment on above: Performed By: #### E RUR, UMICRO #### [facility] [address] [place] [address] Dr. Manfred Brooks HSTROP 13.4 pg/mL Normal 4.0-51.3 [facility] Comment on above: Result Comment: CUT- OFF POINTS HAVE BEEN ESTABLISHED BASED ON THE FOURTH UNIVERSAL DEFINITIONS OF MYOCARDIAL INFARCTION. THE UPPER REFERENCE LIMIT (URL) OF TROPONIN, DEFINED THE 99TH PERCENTILE OF cTnI DISTRIBUTION IN A REFERENCE POPULATION, HAS BEEN CONFIRMED THE DECISION THRESHOLD FOR NM DIAGNOSIS. Performed By: #### MILTON BENOIT #### [facility] [address] [place] [address] Dr. Manfred Brooks MAHOGANY 38 ng/mL Normal 9-82 [facility] Comment on above: Performed By: #### MILTON BENOIT #### [facility] [address] [place] [address] Dr. Manfred Brooks CBC AUTO DIFFon 04-20-2022 BASO # 0.1 103/ul Normal 0.0-0.1 [facility] Comment on above: Performed By: #### MILTON BENOIT #### [facility] [address] [place] [address] Dr. Manfred Brooks Basophils/100 WBC (Bld) 1.0 % Normal 0.2-2.0 [facility] Comment on above: Performed By: #### MILTON BENOIT #### [facility] [address] [place] [address] Dr. Manfred Brooks EO # 0.2 103/ul Normal 0.0-0.7 [facility] Comment on above: Performed By: #### MILTON BENOIT #### [facility] [address] [place] [address] Dr. Manfred Brooks Eosinophils/100 WBC (Bld) 1.8 % Normal 0.9-7.0 [facility] Comment on above: Performed By: #### MILTON BENOIT #### [facility] [address] [place] [address] Dr. Manfred Brooks Erythrocyte distribution width (RBC) [Ratio] 14.2 % Normal 11.0-15.0 [facility] Comment on above: Performed By: #### MILTON BENOIT #### [facility] [address] [place] [address] Dr. Manfred Brooks Hematocrit (Bld) [Volume fraction] 43.5 % Normal 36.0-48.0 [facility] Comment on above: Performed By: #### E RUR, UMICRO #### [facility] [address] [place] [address] Dr. Manfred Brooks Hemoglobin (Bld) [Mass/Vol] 13.9 g/dL Normal 12.0-16.0 [facility] Comment on above: Performed By: #### E RUR, UMICRO #### [facility] [address] [place] [address] Dr. Manfred Brooks IG # 0.03 10e3/ul Normal 0.00-0.03 [facility] Comment on above: Performed By: #### Nikolas HOGAN, UMICRO #### [facility] [address] [place] [address] Dr. Manfred Brooks IG % 0.3 % Normal 0.0-0.5 [facility] Comment on above: Performed By: #### Nikolas HOGAN, UMICRO #### [facility] [address] [place] [address] Dr. Manfred Brooks LYMPH # 2.6 103/ul Normal 1.2-3.8 [facility] Comment on above: Performed By: #### Nikolas HOGAN, UMICRO #### [facility] [address] [place] [address] Dr. Manfred Brooks Lymphocytes/100 WBC (Bld) 29.8 % Normal 20.5-60.0 [facility] Comment on above: Performed By: #### E RUR, UMICRO #### [facility] [address] [place] [address] Dr. Manfred Brooks MANUAL DIFF REQ NO Normal [facility] Comment on above: Performed By: #### E RUR, UMICRO #### [facility] [address] [place] [address] Dr. Manfred Brooks MCH (RBC) [Entitic mass] 29.7 pg Normal 26.7-34.0 [facility] Comment on above: Performed By: #### ANU BENOITRO #### [facility] [address] [place] [address] Dr. Manfred Brooks MCHC (RBC) [Mass/Vol] 32.0 g/dL Normal 29.9-35.2 [facility] Comment on above: Performed By: #### ANU BENOITRO #### [facility] [address] [place] [address] Dr. Manfred Brooks MCV (RBC) [Entitic vol] 92.9 fL Normal 81.0-99.0 [facility] Comment on above: Performed By: #### ANU BENOITRO #### [facility] [address] [place] [address] Dr. Manfred Brooks MONO # 0.8 103/ul Normal 0.3-0.8 [facility] Comment on above: Performed By: #### ANU BENOITRO #### [facility] [address] [place] [address] Dr. Manfred Brooks Monocytes/100 WBC (Bld) 9.6 % Normal 1.7-12.0 [facility] Comment on above: Performed By: #### ANU BENOITRO #### [facility] [address] [place] [address] Dr. Manfred Brooks NEUT # 5.0 103/ul Normal 1.4-6.5 [facility] Comment on above: Performed By: #### ANU BENOITRO #### [facility] [address] [place] [address] Dr. Manfred Brooks Neutrophils/100 WBC (Bld) 57.5 % Normal 43.0-75.0 [facility] Comment on above: Performed By: #### ANU BENOITRO #### [facility] [address] [place] [address] Dr. Manfred Brooks Platelet mean volume (Bld) [Entitic vol] 10.1 fL Normal 9.5-13.5 [facility] Comment on above: Performed By: #### ANU BENOITRO #### [facility] [address] [address] [address] Manfred Brooks PLT 354 103/ul Normal 150-450 [facility] Comment on above: Performed By: #### MILTON BENOIT #### [facility] [address] [address] [address] Manfred Brooks RBC 4.68 106/ul Normal 4.20-5.40 [facility] Comment on above: Performed By: #### MILTON BENOIT #### [facility] [address] [address] [address] Manfred Brooks WBC 8.8 103/ul Normal 4.0-11.0 [facility] Comment on above: Performed By: #### MILTON BENOIT #### [facility] [address] [place] [address] Dr. Manfred Brooks CULTURE URINEon 04-20-2022 CULTURE URINE Culture Observations : LIGHT GROWTH OF MIXED GENITAL BETO. NO POTENTIAL PATHOGENS SEEN. Normal [facility] Comment on above: Performed By: #### B MP, HSTROPN, CK #### [facility] [address] [address] [address] Manfred Brooks [facility]11 SARS-CoV-2 (COVID-19) RNA DAMIR+probe Ql (Unsp spec) Not detected Normal NOT DETECTED [facility] Comment on above: Result Comment: When diagnostic [...] for this test is supported by the [place] of [employer] and Human Service's declaration that [...] By: #### B JAMILAH DARNELL, REY #### [facility] [address] [place] [address] Dr. Manfred Brooks D-DIMERon 04-20-2022 D-DIMER 0.35 mg/L FEU Normal <=0.59 [facility] Comment on above: Performed By: #### MILTON BENOIT #### [facility] [address] [place] [address] Dr. Manfred Brooks D-DIMER COMMENTS SEE BELOW Normal [facility] Comment on above: Result Comment: Incr eases [...] hospitalization. Performed By: #### MILTON BENOIT #### [facility] [address] [place] [address] Dr. Manfred Brooks PROF CHEM 8 (BAS METB)on Anion gap [Moles/Vol] 14.1 mmol/L Normal [facility] Comment on above: Performed By: #### ANU BENOITRO #### [facility] [address] [place] [address] Dr. Manfred Brooks Calcium [Mass/Vol] 9.3 mg/dL Normal 8.5-10.1 [facility] Comment on above: Performed By: #### ANU BENOITRO #### [facility] [address] [place] [address] Dr. Manfred Brooks Chloride [Moles/Vol] 107 mmol/L Normal 98-107 [facility] Comment on above: Performed By: #### MILTON BENOIT #### [facility] [address] [address] [address] Manfred Brooks CO2 [Moles/Vol] 27.8 mmol/L Normal 21.0-32.0 [facility] Comment on above: Performed By: #### ANU BENOITRO #### [facility] [address] [address] [address] Manfred Brooks Creatinine [Mass/Vol] 0.89 mg/dL Normal 0.55-1.02 [facility] Comment on above: Performed By: #### Nikolas HOGAN, ANURO #### [facility] [address] [address] [address] Manfred Brooks EGFR-AF FILIPINO >60 Normal >=60 [facility] Comment on above: Performed By: #### ANU BENOITRO #### [facility] [address] [place] [address] Dr. Manfred Brooks EGFR-NON AF FILIPINO >60 Normal >=60 [facility] Comment on above: Performed By: #### ANU BENOITRO #### [facility] [address] [address] [address] Manfred Brooks Glucose [Mass/Vol] 129 mg/dL Critically high 74-106 [facility] Comment on above: Performed By: #### ANU BENOITRO #### [facility] [address] [place] [address] Dr. Manfred Brooks Potassium [Moles/Vol] 3.9 mmol/L Normal 3.5-5.1 [facility] Comment on above: Performed By: #### ANU BENOITRO #### [facility] [address] [address] [address] Manfred Brooks Sodium [Moles/Vol] 145 mmol/L Normal 136-145 [facility] Comment on above: Performed By: #### ANU BENOITRO #### [facility] [address] [address] [address] Manfred Brooks Urea nitrogen [Mass/Vol] 28.0 mg/dL Critically high 7.0-18.0 [facility] Comment on above: Performed By: #### E MILTON HOGAN #### [facility] [address] [place] [address] Dr. Manfred Brooks Urea nitrogen/Creatinine [Mass ratio] 31.5 mg/mg Normal [facility] Comment on above: Performed By: #### E MILTON HOGAN #### [facility] [address] [place] [address] Dr. Manfred Brooks T4on 04-20-2022 T4 [Mass/Vol] 8.10 ug/dL Normal 4.80-13.90 [facility] Comment on above: Performed By: #### B GRINDING MACHINE OPERATOR PORTABLE, CMP #### [facility] [address] [place] [address] Dr. Manfred Brooks TSHon 04-20-2022 TSH 0.918 uIU/mL Normal 0.358-3.740 [facility] Comment on above: Performed By: #### B GRINDING MACHINE OPERATOR PORTABLE, CMP #### [facility] [address] [place] [address] Dr. Manfred Brooks UA RANDOM W/MICROSCOPICon BACTERIA TRACE Abnormal NONE SEEN [facility] Comment on above: Performed By: #### C VDTBH #### [facility] [address] [place] [address] Dr. Manfred Brooks Bilirubin Ql (U) Negative Normal NEGATIVE [facility] Comment on above: Performed By: #### C VDTBH #### [facility] [address] [place] [address] Dr. Manfred Brooks CAST SEEN Abnormal NONE SEEN [facility] Comment on above: Performed By: #### C VDTBH #### [facility] [address] [place] [address] Dr. Manfred Brooks Clarity (U) CLEAR Normal CLEAR [facility] Comment on above: Performed By: #### C VDTBH #### [facility] [address] [place] [address] Dr. Manfred Brooks Color (U) LT. YELLOW Normal YELLOW [facility] Comment on above: Performed By: #### C VDTBH #### [facility] [address] [address] [address] Manfred Brooks Crystals LM Nom (Urine sed) NONE SEEN Normal NONE SEEN [facility] Comment on above: Performed By: #### C VDTBH #### [facility] [address] [place] [address] Dr. Manfred Brooks Epithelial cells LM Ql (Urine sed) MODERATE Abnormal NONE SEEN /RARE [facility] Comment on above: Performed By: #### C VDTBH #### [facility] [address] [place] [address] Dr. Manfred Brooks Glucose Ql (U) Negative Normal NEGATIVE [facility] Comment on above: Performed By: #### C VDTBH #### [facility] [address] [place] [address] Dr. Manfred Brooks Hemoglobin Ql (U) Negative Normal NEGATIVE [facility] Comment on above: Performed By: #### C VDTBH #### [facility] [address] [place] [address] Dr. Manfred Brooks HYALINE CAST RARE Normal [facility] Comment on above: Performed By: #### C VDTBH #### [facility] [address] [place] [address] Dr. Manfred Brooks Ketones Ql (U) Negative Normal NEGATIVE [facility] Comment on above: Performed By: #### C VDTBH #### [facility] [address] [place] [address] Dr. Manfred Brooks LEUKOCYTES TRACE Abnormal NEGATIVE [facility] Comment on above: Performed By: #### C VDTBH #### [facility] [address] [place] [address] Dr. Manfred Brooks MUCOUS TRACE Abnormal NONE SEEN [facility] Comment on above: Performed By: #### C VDTBH #### [facility] [address] [place] [address] Dr. Manfred Brooks Nitrite Ql (U) Negative Normal NEGATIVE [facility] Comment on above: Performed By: #### C VDTBH #### [facility] [address] [place] [address] Dr. Manfred Brooks pH (U) 5.0 [pH] Normal 5-9 [facility] Comment on above: Performed By: #### C VDTBH #### [facility] [address] [address] [address] Manfred Brooks RBC NONE SEEN Abnormal 0-2 [facility] Comment on above: Performed By: #### C VDTBH #### [facility] [address] [address] [address] Manfred Brooks SPEC GRAVITY >=1.030 Abnormal 1.005-<=1.025 [facility] Comment on above: Performed By: #### C VDTBH #### [facility] [address] [address] [address] Manfred Brooks UA PROTEIN Negative Normal NEGATIVE/ TRACE [facility] Comment on above: Performed By: #### C VDTBH #### [facility] [address] [address] [address] Manfred Brooks Urobilinogen Qn (U) 0.2 {Antionette'U}/dL Normal 0.2 - 1. 0 [facility] Comment on above: Performed By: #### C VDTBH #### [facility] [address] [address] [address] Manfred Brooks WBC 2-5 Abnormal NONE SEEN [facility] Comment on above: Performed By: #### C VDTBH #### [facility] [address] [address] [address] Manfred Brooks XR CHEST 1 Von [...] CHE JACOBS Date: 2022-04-20 07:57 Normal [facility] INSULINon 02-05-2022 Insulin 21.9 uIU/mL Normal 2.6-24.9 [facility] Comment on above: Performed By: #### C VDTBH #### [facility] [address] [place] [address] Dr. Manfred Brooks BNPon 02-04-2022 Natriuretic peptide B (Bld) [Mass/Vol] 197.0 pg/mL Normal <=1,800.0 [facility] Comment on above: Performed By: #### E MILTON HOGAN #### [facility] [address] [place] [address] Dr. Manfred Brooks CBC AUTO DIFFon 02-04-2022 BASO # 0.1 103/ul Normal 0.0-0.1 [facility] Comment on above: Performed By: #### C BC #### [facility] [address] [place] [address] Dr. Manfred Brooks Basophils/100 WBC (Bld) 1.2 % Normal 0.2-2.0 [facility] Comment on above: Performed By: #### C BC #### [facility] [address] [place] [address] Dr. Manfred Brooks EO # 0.1 103/ul Normal 0.0-0.7 [facility] Comment on above: Performed By: #### C BC #### [facility] [address] [place] [address] Dr. Manfred Brooks Eosinophils/100 WBC (Bld) 2.1 % Normal 0.9-7.0 [facility] Comment on above: Performed By: #### C BC #### [facility] [address] [place] [address] Dr. Manfred Brooks Erythrocyte distribution width (RBC) [Ratio] 14.5 % Normal 11.0-15.0 [facility] Comment on above: Performed By: #### C BC #### [facility] [address] [place] [address] Dr. Manfred Brooks Hematocrit (Bld) [Volume fraction] 42.4 % Normal 36.0-48.0 [facility] Comment on above: Performed By: #### C BC #### [facility] [address] [place] [address] Dr. Manfred Brooks Hemoglobin (Bld) [Mass/Vol] 13.4 g/dL Normal 12.0-16.0 [facility] Comment on above: Performed By: #### C BC #### [facility] [address] [place] [address] Dr. Manfred Brooks IG # 0.02 10e3/ul Normal 0.00-0.03 [facility] Comment on above: Performed By: #### C BC #### [facility] [address] [place] [address] Dr. Manfred Brooks IG % 0.3 % Normal 0.0-0.5 [facility] Comment on above: Performed By: #### C BC #### [facility] [address] [place] [address] Dr. Manfred Brooks LYMPH # 2.2 103/ul Normal 1.2-3.8 [facility] Comment on above: Performed By: #### C BC #### [facility] [address] [place] [address] Dr. Manfred Brooks Lymphocytes/100 WBC (Bld) 35.6 % Normal 20.5-60.0 [facility] Comment on above: Performed By: #### C BC #### [facility] [address] [place] [address] Dr. Manfred Brooks MANUAL DIFF REQ NO Normal [facility] Comment on above: Performed By: #### C BC #### [facility] [address] [place] [address] Dr. Manfred Brooks MCH (RBC) [Entitic mass] 29.6 pg Normal 26.7-34.0 [facility] Comment on above: Performed By: #### C BC #### [facility] [address] [place] [address] Dr. Manfred Brooks MCHC (RBC) [Mass/Vol] 31.6 g/dL Normal 29.9-35.2 [facility] Comment on above: Performed By: #### C BC #### [facility] [address] [place] [address] Dr. Manfred Brooks MCV (RBC) [Entitic vol] 93.8 fL Normal 81.0-99.0 [facility] Comment on above: Performed By: #### C BC #### [facility] [address] [place] [address] Dr. Manfred Brooks MONO # 0.6 103/ul Normal 0.3-0.8 [facility] Comment on above: Performed By: #### C BC #### [facility] [address] [place] [address] Dr. Manfred Brooks Monocytes/100 WBC (Bld) 10.4 % Normal 1.7-12.0 [facility] Comment on above: Performed By: #### C BC #### [facility] [address] [place] [address] Dr. Manfred Brooks NEUT # 3.1 103/ul Normal 1.4-6.5 [facility] Comment on above: Performed By: #### C BC #### [facility] [address] [place] [address] Dr. Manfred Brooks Neutrophils/100 WBC (Bld) 50.4 % Normal 43.0-75.0 [facility] Comment on above: Performed By: #### C BC #### [facility] [address] [place] [address] Dr. Manfred Brooks Platelet mean volume (Bld) [Entitic vol] 10.1 fL Normal 9.5-13.5 [facility] Comment on above: Performed By: #### C BC #### [facility] [address] [place] [address] Dr. Manfred Brooks PLT 310 103/ul Normal 150-450 [facility] Comment on above: Performed By: #### C BC #### [facility] [address] [place] [address] Dr. Manfred Brooks RBC 4.52 106/ul Normal 4.20-5.40 [facility] Comment on above: Performed By: #### C BC #### [facility] [address] [place] [address] Dr. Manfred Brooks WBC 6.1 103/ul Normal 4.0-11.0 [facility] Comment on above: Performed By: #### C BC #### [facility] [address] [address] [address] Manfred Brooks FREE THYROXINE INDEX T7on FTI 2.16 Normal [facility] Comment on above: Performed By: #### B JAMILAH DARNELL, CK #### [facility] [address] [place] [address] Dr. Manfred Brooks T3U 36.0 % Normal 23.5-40.5 [facility] Comment on above: Performed By: #### B JAMILAH DARNELL, CK #### [facility] [address] [place] [address] Dr. Manfred Brooks T4 [Mass/Vol] 6.00 ug/dL Normal 4.80-13.90 [facility] Comment on above: Performed By: #### B JAMILAH DARNELL, CK #### [facility] [address] [place] [address] Dr. Manfred Brooks GLYCOHEMOGLOBIN A1Con 2021 ADA RECOMMENDATION SEE BELOW Normal [facility] Comment on above: Result Comment: ADA RECOMMENDED LIMIT 4.0 - 6.0 ADA THERAPEUTIC TARGET < 7.0 ACTION SUGGESTED > 7.0 Performed By: #### B JAMILAH DARNELL, CK #### [facility] [address] [place] [address] Dr. Manfred Brooks Glucose [Mass/Vol] 114 mg/dL Normal [facility] Comment on above: Performed By: #### B JAMILAH DARNELL, CK #### [facility] [address] [place] [address] Dr. Manfred Brooks HbA1c (Bld) [Mass fraction] 5.6 % Normal 4.5-6.2 [facility] Comment on above: Performed By: #### B JAMILAH DARNELL, CK #### [facility] [address] [place] [address] Dr. Manfred Brooks IRONon 02-04-2022 Iron [Mass/Vol] 79.0 ug/dL Normal 50.0-170.0 [facility] Comment on above: Performed By: #### MILTON BENOIT #### [facility] [address] [place] [address] Dr. Manfred Brooks LIPID PROFILEon 02-04-2022 CHOL-HDL RATIO NORM SEE BELOW Normal [facility] Comment on above: Result Comment: 3.3 - 4.4 LOW RISK 4.4 - 7.1 AVERAGE RISK 7.1 - 11.0 MODERATE RISK >11.0 HIGH RISK Performed By: #### MILTON BENOIT #### [facility] [address] [place] [address] Dr. Manfred Brooks Cholesterol [Mass/Vol] 134 mg/dL Normal <=200 [facility] Comment on above: Performed By: #### MILTON BENOIT #### [facility] [address] [place] [address] Dr. Manfred Brooks Cholesterol in HDL [Mass/Vol] 41 mg/dL Normal 40-60 [facility] Comment on above: Performed By: #### MILTON BENOIT #### [facility] [address] [place] [address] Dr. Manfred Brooks Cholesterol in LDL [Mass/Vol] 62.0 mg/dL Normal [facility] Comment on above: Performed By: #### MILTON BENOIT #### [facility] [address] [place] [address] Dr. Manfred Brooks Cholesterol.total/Ch olesterol in HDL [Mass ratio] 3.3 {ratio} Normal [facility] Comment on above: Performed By: #### MILTON BENOIT #### [facility] [address] [place] [address] Dr. Manfred Brooks HDL NORMAL > or = 60 mg/dl - LO W CARDIOVASCULAR RISK <40 mg/dl - HIGH CARDIOVASCULAR RISK Normal [facility] Comment on above: Performed By: #### MILTON BENOIT #### [facility] [address] [place] [address] Dr. Manfred Brooks LDL CALC NORMAL SEE BELOW Normal [facility] Comment on above: Result Comment: <100 mg/dl OPTIMAL 100 - 129 mg/dl NEAR OR ABOVE OPTIMAL 130 - 159 mg/dl BORDERLINE HIGH 160 - 189 mg/dl HIGH >190 mg/dl VERY HIGH Performed By: #### E ANU HOGANRO #### [facility] [address] [address] [address] Manfred Boroks Triglyceride [Mass/Vol] 155 mg/dL Critically high <=150 [facility] Comment on above: Performed By: #### ANU BENOITRO #### [facility] [address] [address] [address] Manfred Brooks VLDL CALC 31.0 mg/dL Normal [facility] Comment on above: Performed By: #### MILTON BENOIT #### [facility] [address] [address] [address] Manfred Brooks PROF 14(COMP METB)on 022 Albumin [Mass/Vol] 3.9 g/dL Normal 3.4-5.0 [facility] Comment on above: Performed By: #### B MANN HSTROPN, CK #### [facility] [address] [place] [address] Dr. Manfred Brooks Albumin/Globulin [Mass ratio] 1.2 {ratio} Normal [facility] Comment on above: Performed By: #### B MANN HSTROPN, CK #### [facility] [address] [place] [address] Dr. Manfred Brooks ALP [Catalytic activity/Vol] 63 U/L Normal 46-116 [facility] Comment on above: Performed By: #### B MANN HSTROPN, CK #### [facility] [address] [place] [address] Dr. Manfred Brooks ALT [Catalytic activity/Vol] 25 U/L Normal 14-59 [facility] Comment on above: Performed By: #### B MANN HSTROPN, CK #### [facility] [address] [place] [address] Dr. Manfred Brooks Anion gap [Moles/Vol] 10.8 mmol/L Normal [facility] Comment on above: Performed By: #### B MANN HSTROPN, CK #### [facility] [address] [address] [address] Manfred Brooks AST [Catalytic activity/Vol] 14 U/L Critically low 15-37 [facility] Comment on above: Performed By: #### B MP, HSTROPN, CK #### [facility] [address] [address] [address] Manfred Brooks Bilirubin [Mass/Vol] 0.6 mg/dL Normal 0.2-1.0 [facility] Comment on above: Performed By: #### B MP, HSTROPN, CK #### [facility] [address] [address] [address] Manfred Brooks Calcium [Mass/Vol] 8.6 mg/dL Normal 8.5-10.1 [facility] Comment on above: Performed By: #### B MP, HSTROPN, CK #### [facility] [address] [place] [address] Dr. Manfred Brooks Chloride [Moles/Vol] 104 mmol/L Normal 98-107 [facility] Comment on above: Performed By: #### B MP, HSTROPN, CK #### [facility] [address] [address] [address] Manfred Brooks CO2 [Moles/Vol] 31.5 mmol/L Normal 21.0-32.0 [facility] Comment on above: Performed By: #### B MP, HSTROPN, CK #### [facility] [address] [address] [address] Manfred Brooks Creatinine [Mass/Vol] 0.67 mg/dL Normal 0.55-1.02 [facility] Comment on above: Performed By: #### B MP, HSTROPN, CK #### [facility] [address] [place] [address] Dr. Manfred Brooks EGFR-AF FILIPINO >60 Normal >=60 [facility] Comment on above: Performed By: #### B MP, HSTROPN, CK #### [facility] [address] [address] [address] Manfred Brooks EGFR-NON AF FILIPINO >60 Normal >=60 [facility] Comment on above: Performed By: #### B MP, HSTROPN, CK #### [facility] [address] [address] [address] Manfred Brooks Globulin (S) [Mass/Vol] 3.2 g/dL Normal [facility] Comment on above: Performed By: #### B MP, HSTROPN, CK #### [facility] [address] [address] [address] Manfred Brooks Glucose [Mass/Vol] 102 mg/dL Normal 74-106 [facility] Comment on above: Performed By: #### B MP, HSTROPN, CK #### [facility] [address] [place] [address] Dr. Manfred Brooks Potassium [Moles/Vol] 4.3 mmol/L Normal 3.5-5.1 [facility] Comment on above: Performed By: #### B MP, HSTROPN, CK #### [facility] [address] [address] [address] Manfred Brooks Protein [Mass/Vol] 7.1 g/dL Normal 6.1-8.2 [facility] Comment on above: Performed By: #### B MP, HSTROPN, CK #### [facility] [address] [place] [address] Dr. Manfred Brooks Sodium [Moles/Vol] 142 mmol/L Normal 136-145 [facility] Comment on above: Performed By: #### B MP, HSTROPN, CK #### [facility] [address] [place] [address] Dr. Manfred Brooks Urea nitrogen [Mass/Vol] 19.0 mg/dL Critically high 7.0-18.0 [facility] Comment on above: Performed By: #### B MP, HSTROPN, CK #### [facility] [address] [place] [address] Dr. Manfred Brooks Urea nitrogen/Creatinine [Mass ratio] 28.4 mg/mg Normal [facility] Comment on above: Performed By: #### B MP, HSTROPN, CK #### [facility] [address] [address] [address] Manfred Brooks TSHon 02-04-2022 TSH 0.317 uIU/mL Critically low 0.470-4.680 [facility] Comment on above: Performed By: #### B JAMILAH DARNELL CK #### [facility] [address] [address] [address] Manfred Brooks TSH RANGE SEE BELOW Normal [facility] Comment on above: Result Comment: <0.3 4 UIU/ml HYPERTHYROID 0.34-5.60 UIU/ml EUTHYROID >5.60 UIU/ml HYPOTHYROID Performed By: #### B JAMILAH DARNELL CK #### [facility] [address] [place] [address] Dr. Manfred Brooks VITAMIN D 25 OHon 02-04-2022 VIT D 25-OH 35.9 ng/mL Normal [facility] Comment on above: Performed By: #### MILTON BENOIT #### [facility] [address] [place] [address] Dr. Manfred Brooks VIT D RANGES SEE BELOW Normal [facility] Comment on above: Result Comment: <20 ng/mL Vit D deficient 20 - <30 ng/mL Vit D insufficient 30 - 100 ng/mL Vit D sufficient >100 ng/mL Potential Toxicity Performed By: #### MILTON BENOIT #### [facility] [address] [place] [address] Dr. Manfred Brooks Ambulatory Clinical Summaryo n 04-16-2021 Ambulatory Clinical Summary {[id number] Normal [facility] General Surgery Office/Clini c Noteon 04-16-2021 [...] JEM Acevedo Only if needed [address] [place] [address]- Additional Instructions: Problem List/Past Medical [...] (COVID-19) mRNA BNT-162b2 vax 11/30/2020 Recorded [facility] Comment on above: Result Comment: Elec tronically Signed By: IZZY REYES, Salvatore River\Date and Time Signed: 04/16/21 13:20 EDT Pathology Noteon 04-12-2021 Pathology Note [id number]. 00CD:127 [facility] Ambulatory Clinical Summaryo n 04-09-2021 Ambulatory Clinical Summary {[id number]}CD:[id number] [facility] March 29, 2021 Cam Bates, [address] [address] [place] [address] Re: BETTY CAMARENA Date of : 1940 Thank you for your referral of Betty Camarena who was seen on consultation on March 21, 2021, for two moles on right cheek. An excisional biopsy is planned. I have enclosed my consultation note for your review. I will be happy to follow Betty. Sincerely, Salvatore Moore MD General Surgery [facility] Ambulatory Clinical Summaryo n 03-21-2021 Ambulatory Clinical Summary {[id number]}CD:[id number] [facility] Patient Educationon 03-21-20 21 Patient Education Physical [...] care provider or diet and child nutrition director (dietitian). This may include: ? Eating fewer [...] weight koehler (more content not included)... [facility] Physician Referralon 021 Physician Referral [id number] 0CD:127 [facility] Cardiovascular Lab Reporton 04-17-2020 Cardiovascular Lab Report [facility] Patient Name: Sarah [facility] MR #: [id number] Physician: Denisa Nevarez Department of Navya Alejandre Medicine Service Date: 04/16/2020 Division of Birthdate: 1940 Cardiology Room #: Adult Cardiovascular Services [place] [id number] Cardiovascular Laboratory Report INDICATION: The patient is [...] signed informed consent. She was brought to recyclable products sorter in a fasting state. The left wrist area was prepped and draped in the usual fashion. Modified Raleigh's test was favorable on the left. Access in the left radial artery was obtained using micropuncture technique and ultrasound guidance. A 6-Venezuelan x 11 cm Hydrophilic sheath was advanced. Verapamil was given through the sheath and heparin was administered intravenously. The JR4 diagnostic catheter was advanced over the angled Glidewire into the left ventricular cavity and used to perform left heart catheterization with measurement of pressures. Pullback across the aortic valve was performed with measurement of pressures. Bilateral selective coronary angiography was then performed using 6-Venezuelan JL4 and JR4 diagnostic catheters. Catheters were [...] 40% proximal stenosis. SUMMARY OF FINDINGS: 1. Yhwf-ge-xplddqtn 2-vessel coronary artery disease with 30% mid LAD, 20% mid RCA, 40% distal RCA, 40% proximal PDA stenosis, but no occlusive disease and minimal disease in the circumflex vessel. 2. Vvwmmysu-il-qpikrj elevation of LVEDP. 3. Uncontrolled systemic hypertension. [...] Alejandre M.D. Date Trans: 04/17/2020 09:09 Chad/anna [id number] cc: Cam Bates M.D. [address], [place] [address] [facility] Encounters Encounter Date Encounter Type Care Provider Facility Start: 01-19-2024 ambulatory [facility] Start: 01-07-2024 End: 01-07-2024 ambulatory [facility] Start: 07-29-2023 End: 07-29-2023 ambulatory [facility] Start: 05-27-2023 End: 05-27-2023 ambulatory [facility] Start: 04-23-2023 ambulatory [facility] Start: 04-23-2023 End: 04-23-2023 ambulatory [facility] Start: 03-02-2023 End: 03-03-2023 ambulatory [facility] Start: 02-27-2023 End: 02-27-2023 ambulatory [facility] Start: 01-19-2023 End: 01-20-2023 ambulatory [facility] Facility:[facility] Start: 01-09-2023 End: 01-09-2023 [...] End: 04-17-2020 Patient encounter procedure PROVIDER UNKNOWN Facility:[facility] Payers Date Payer Category Payer Medicare [id number] 1957 Private Health Insurance [facility] [id number] Private Health Insurance [id number] 1940 Unknown [id number] 2.16.8 [id number] 1940 Unknown [id number] 2.16.84 [id number] 1940 Unknown [id number] 2.16.84 [id number] 1940 Unknown [id number] 2.16.84 [id number] 1940 Unknown [id number] 2.16.84 [id number] 1940 Unknown [id number] 2.16.84 [id number] 1940 Unknown [id number] 2.16.84 [id number] 1940 Unknown [id number] 2.16.84 [id number] 1940 Unknown [id number] 2.16.84 [id number] Clinical Notes 03-23-2021 to 01-19-2024 Note Date & Type Note Facility 01-19-2024 Note Cardiology Progress Note - [facility] Reason for visit: ER follow-up 01/19/2024 [...] atrial fibrillation and was recently admitted to [facility]. She converted on her own with mild [...] A DAY ergocalciferol (Vitamin D-2) 1.25 MG (48981 Units) capsule Vitamin D fu (more content not included)... [facility] 01-07-2024 Note Cardiology Progress Note - [facility] Reason for visit: follow-up 01/07/2024 Patient [...] atrial fibrillation and was recently admitted to [facility]. She converted on her own with mild [...] on file Intimate Partner Violence: Unknown (12/03/2023) [place] Safety [place] Fear of Current or [...] A DAY ergocalciferol (Vitamin D-2) 1.25 MG (38251 Units) capsule Vitamin D isosorbide mononitrate ER [...] (Pacerone) 200 mg (more content not included)... [facility] 01-07-2024 Note Patient here for 6 [...] All other systems reviewed and are negative. [facility] 07-29-2023 Note [place] [facility]rophys[facility] Consult Note [...] atrial fibrillation and was recently admitted to [facility]. She converted on her own with mild [...] A DAY ergocalciferol (Vitamin D-2) 1.25 MG (98711 Units) capsule Vitamin D isosorbide mononitrate ER [...] dry eyes, no (more content not included)... [facility] 07-29-2023 Note Patient here for 2 [...] All other systems reviewed and are negative. [facility] 05-27-2023 Note [place] [facility] Consult Note [...] atrial fibrillation and was recently admitted to [facility]. She converted on her own with mild [...] A DAY ergocalciferol (Vitamin D-2) 1.25 MG (31970 Units) capsule Vitamin D famotidine (Pepcid) 20 [...] 3 spironolactone (Aldac (more content not included)... [facility] 04-23-2023 Note Patient: Betty Null eser Procedure Summary Date: 04/23/23 Room / Location: [facility] SURGEON/PRESIDENT 1 EP / [facility] (Cath) Anesthesia Start: 1225 [...] no known notable events for this encounter. [facility] 04-23-2023 Note Patient: Betty Null eser Procedure Summary Date: 04/23/23 Room / Location: [facility] SURGEON/PRESIDENT 1 EP / [facility] VASCULAR LAB (Cath) Anesthesia [...] SpO2 Transport: uneventful Patient condition is: stable [facility] 04-23-2023 Note ATRIAL FIBRILLATION ABLATION PROCEDURE NOTE DATE OF PROCEDURE: 04/23/2023 PERFORMING PHYSICIAN: Dr. Lucho Taylor JIRA ADMINISTRATOR: Dr Marie Pace CONSENT: Patient NAME OF [...] atrial fibrillation and was recently admitted to [facility]. She converted on her own with mild [...] pulmonary veins. Esophagus was mapped using the [employer] 3D mapping software and noted to lie [...] and hemostasis noted. She was transferred to [facility] (more content not included)... [facility] 04-23-2023 Note Airway Date/Time: 04/23/2023 12:45 PM Urgency: elective Airway not difficult General Information and Staff Patient location during procedure: OR Resident/COLLECTIONS TECHNICIAN/CAA: Jonathon Riddle MD Performed: resident/COLLECTIONS TECHNICIAN/CAA Indications and Patient Condition Indications for airway [...] 20 Number of attempts at approach: 1 [facility] 04-23-2023 Note Patient: Betty dean Procedure Information Date/Time: 04/23/23 1230 Procedure: Ablation a-fib paroxysmal Location: [facility] SURGEON/PRESIDENT 1 / [facility] (Cath) Providers: Lucho Taylor MD Relevant Problems Cardio (+) Benign essential HTN (+) Bilateral carotid artery stenosis (+) Coronary artery disease involving [place] coronary artery of [place] heart without angina pectoris (+) Paroxysmal atrial [...] who. Plan discussed with resident, CAA and COLLECTIONS TECHNICIAN. 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 Do not wear perfume, make-up, nail algerian, or lotions on the day of your [...] need to make any changes, please call [phone]. Notify your surgeon if you develop any illness such as a cold, cough, fever, sore throat or vomiting between now and your surgery. Thank you for entrusting us with your care. [facility] Surgical Services Team [facility] 02-27-2023 Note [place] Electrophysiology Consult Note Reason for visit: Afib ablation HP and consent HPI: She is here for follow-up for H&P and consent for A-fib ablation. She was provided [employer] video I did watch it. She has [...] atrial fibrillation and was recently admitted to [facility]. She converted on her own with mild [...] A DAY ergocalciferol (Vitamin D-2) 1.25 MG (47095 Units) capsule Vitamin D isosorbide mononitrate ER [...] no headaches Psyc (more content not included)... [facility] 02-27-2023 Note Patient is here toda y for a 1 month follow up. Review of Systems Constitutional: Positive for weight gain. Respiratory: Positive for cough and shortness of breath. Musculoskeletal: Positive for arthritis and back pain. All other systems reviewed and are negative. 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 Hx of Hypertension, Diastolic heart failure, mitral [...] Directed Allergies C (more content not included)... [facility] Comment on above: Result Comment: Elec [...] and content) DATE CREATED AUTHOR 05/03/2020 [facility] DATE CREATED AUTHOR AUTHOR'S ORGANIZ ATION 04/17/2021 [facility] DATE CREATED AUTHOR AUTHOR'S ORGANIZ ATION 01/25/[address] [facility] DATE CREATED AUTHOR AUTHOR'S ORGANIZ ATION 01/30/2024 [facility] FOR RECORDS PERTAINING TO PATIENTS WHO ARE [...] BE BASED ON THE PRIMARY CLINICAL RECORDS. [employer] provides no warranty or guarantee of the accuracy or completeness of information in this document.
[2024-12-27 11:36] LABS: Anion Gap 12.3; BUN Creatinine Ratio 23.1; Calcium 9.4 mg/dL (8.5-10.1); Carbon Dioxide 28.7 mmol/L (21.0-32.0); Chloride 106 mmol/L (98-107); Estimated GFR (African America >60 (>=60 mL/min/1.73m^2); Estimated GFR (Non-African Ame >60 (>=60 mL/min/1.73m^2); Glucose 101 mg/dL (74-106); Sodium 143 mmol/L (136-145)
== END 2024-12-27 10:18 | disposition home or self-care (01) ==
LOC: LAB 10:18
PROVIDERS: PCP Family Medicine; Visit Provider Internal Medicine Interventional Cardiology
DX: I10 Essential (primary) hypertension (principal)
CPT/HCPCS: 36415; 80048

== ENCOUNTER 2025-01-03 12:58 | Outpatient (OUT) | payer MEDICARE, OTHER, SELFPAY | END 2025-01-03 12:59 | disposition home or self-care (01) | LOC: US 12:58 | PROVIDERS: PCP Family Medicine; Visit Provider Internal Medicine Interventional Cardiology | DX: I65.23 Occlusion and stenosis of bilateral carotid arteries (principal) | CPT/HCPCS: 93880 ==

== ENCOUNTER 2025-01-26 03:04 | Emergency (ER) | payer MEDICARE, OTHER, SELFPAY ==
[2025-01-26 03:07] VITALS: BP 188/78; PULSE 72; TEMP 36.5; O2SAT 95; BMI 32.3
--- OUTSIDE RECORDS SUMMARY | 2025-01-26 03:12 | XMS_ITS | CCD ---
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 Name Role Phone UNKNOWN, PROVIDER Admitting Unavailable UNKNOWN, PROVIDER Attending Unavailable SELF, REFERRED Referring Unavailable CAM BATES Primary Care Unavailable DENISSE, DR GLORIA Bonilla Attending Unavailable NADERER, DR GLORIA Bonilla Admitting Unavailable HOY ., [...] Primary Care Unavailable NICOLE CLINE Consulting Unavailable Johan Mckeon Consulting Unavailable TIBURCIO .RICARDO Attending Unavailable [...] KAI, DR JEANINE Lambert Consulting Unavailabl e Johan Mckeon Consulting Unavailable MOUKARBEL, DR CRAWLEY Consulting Unavailable MARKER ., DR UGARTE Consulting Unavailable LEANNA VIVAS Consulting Unavailable DENISA ALEJANDRE Attending Unavailable KAYLYN GILBERT Attending Unavailable KAYLYN GILBERT Attending Unavailable Allergies Allergy Classification Reported Allergen(s) Allergy Type Date of Onset Reaction(s) Facility (2 sources) dilTIAZem; Translations: [DILTIAZEM] Drug Allergy 11-19-2015 [facility] Repository (1 source) Digoxin; Translations: [DIGOXIN] Drug Allergy 12-24-2022 [facility] Repository Problems Active Problems Problem Classification Problem Date Documented Date Episodic/Chronic Cardiac dysrhythmias (8 sources) Unspecified atrial fibrillation; Translations: [Paroxysmal atrial fibrillation] Onset: 04-20-2022 Chronic Conditions associated with dizziness or vertigo (5 sources) Dizziness and giddiness; Translations: [DIZZINESS AND GIDDINESS] Onset: 05-19-2022 Episodic Congestive heart failure; nonhypertensive (4 sources) Chronic diastolic (congestive) heart failure; Translations: [Unspecified diastolic (congestive) heart failure] Onset: 02-05-2022 Chronic Coronary atherosclerosis and other heart disease (3 sources) Atherosclerotic heart disease of [place] coronary artery without angina pectoris; Translations: [ASHD [place] CA W/O ANGINA PECTORIS] Onset: 02-05-2022 Chronic [...] 05-19-2022 Chronic Other aftercare (1 source) 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; Translations: [OTH ASSISTED CURRENT DRUG THERAPY] Onset: 01-13-2023 Episodic Other aftercare (1 source) 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; Translations: [SNOWBLOWER MECHANIC CURRNT USE ANTICOAGULANTS] Onset: 01-13-2023 Episodic Other lower respiratory disease (1 source) Shortness of breath; Translations: [SHORTNESS OF BREATH] Onset: 01-13-2023 Episodic Residual codes; unclassified (1 source) Acquired absence of both cervix and uterus; 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] Onset: 01-13-2023 Episodic Screening and history of mental health [...] [CONTACT W/AND (SUSP) EXPOS COVID-19] Onset: 01-13-2023 Past or Other Problems Problem Classification Problem Date Documented Date Episodic/Chronic Cardiac dysrhythmias (6 sources) Palpitations; Translations: [Bradycardia, unspecified] Onset: 05-19-2022 Episodic Deficiency and other anemia (1 source) Anemia, [...] Onset: 02-05-2022 Episodic Other aftercare (1 source) 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; Translations: [SNOWBLOWER MECHANIC USE ORAL HYPOGLYCEMIC DX] Onset: 05-19-2022 Episodic Other aftercare (1 source) 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; Translations: [SNOWBLOWER MECHANIC CURRENT USE OF ASPIRIN] Onset: 04-23-2022 Episodic Other circulatory disease (2 sources) Personal history of other diseases of the circulatory system; Translations: [Personal history of other diseases of the circulatory system] Onset: 01-19-2024 Episodic Other lower respiratory disease (1 source) Acute respiratory distress; Translations: [ACUTE RESPIRATORY DISTRESS] Onset: 04-23-2022 Episodic Other lower respiratory disease (1 source) Dyspnea, unspecified; Translations: [DYSPNEA UNSPECIFIED] Onset: 02-05-2022 Episodic Residual codes; unclassified (2 sources) Other specified postprocedural states; Translations: [Other specified postprocedural states] Onset: 01-19-2024 Episodic Results Test Name Value Interpretation Reference Range Facility 36on 01-04-2025 36 MD Selena Oviedo MA Blood test was normal, waiting for the carotid ultrasound result. MD Selena Oviedo MA Her carotid ultrasound showed stable carotid disease. Follow up as planned. Spoke to patient advised patient of her test results per Dr. Medrano. Patient states ok, she will follow up in 1 year. 01/04/2025 [facility] Office Visiton 12-26-2024 Follow-up visit [id number] Jessica Camarena ra 1940 F Date Provider Department Center 12/26/2024 [facility]DENISA ALEJANDRE CARD [facility] No family history on file Level of Service:09112 MD OFFICE/OUTPATIENT ESTABLISHED MOD MDM 30 MIN Normal [facility] Office Visiton 01-19-2024 Follow-up visit [id number] Jessica Camarena ra 1940 F Date Provider Department Center 01/19/2024 KAYLYN JANG VIRY [facility] No family history on file Level of Service:95527 MD OFFICE/OUTPATIENT ESTABLISHED MOD MDM 30 MIN Normal [facility] Office Visiton 01-07-2024 Follow-up visit [id number] TennillemeganalinJessica ra 1940 F Date Provider Department Center 01/07/2024 KAYLYN JANG VIRY [facility] No family history on file Level of Service:16505 MD OFFICE/OUTPATIENT ESTABLISHED MOD MDM 30 MIN Normal [facility] PROF CHEM 8 (BAS METB)on Anion gap [Moles/Vol] 12.8 mmol/L Normal [facility] Comment on above: Performed By: #### B VENESSA DARNELLTRDANNIELLE, CK #### [facility] [address] [address] [address] Manfred Brooks Calcium [Mass/Vol] 9.5 mg/dL Normal 8.5-10.1 [facility] Comment on above: Performed By: #### B VENESSA DARNELLTRDANNIELLE, CK #### [facility] [address] [address] [address] Manfred Brooks Chloride [Moles/Vol] 106 mmol/L Normal 98-107 [facility] Comment on above: Performed By: #### B MANN HSTROPN, CK #### [facility] [address] [address] [address] Manfred Brooks CO2 [Moles/Vol] 27.3 mmol/L Normal 21.0-32.0 [facility] Comment on above: Performed By: #### B MANN HSTRHANGN, CK #### [facility] [address] [address] [address] Manfred Brooks Creatinine [Mass/Vol] 0.93 mg/dL Normal 0.55-1.02 [facility] Comment on above: Performed By: #### B VENESSA DARNELLTRHANGN, CK #### [facility] [address] [address] [address] Manfred Brooks EGFR-AF [place] >60 Normal >=60 [facility] Comment on above: Performed By: #### B MP, HSTROPN, CK #### [facility] [address] [address] [address] Manfred Brooks EGFR-NON AF MAL[place]IAN 58 mL/min/1.73m2 Critically low >=60 [facility] Comment on above: Performed By: #### B MP, HSTROPN, CK #### [facility] [address] [address] [address] Manfred Brooks Glucose [Mass/Vol] 116 mg/dL Critically high 74-106 [facility] Comment on above: Performed By: #### B MP, HSTROPN, CK #### [facility] [address] [place] [address] Dr. Manfred Brooks Potassium [Moles/Vol] 4.1 mmol/L Normal 3.5-5.1 [facility] Comment on above: Performed By: #### B MP, HSTROPN, CK #### [facility] [address] [place] [address] Dr. Manfred Brooks Sodium [Moles/Vol] 142 mmol/L Normal 136-145 [facility] Comment on above: Performed By: #### B MP, HSTROPN, CK #### [facility] [address] [address] [address] Manfred Brooks Urea nitrogen [Mass/Vol] 19.0 mg/dL Critically high 7.0-18.0 [facility] Comment on above: Performed By: #### B MP, HSTROPN, CK #### [facility] [address] [place] [address] Dr. Manfred Brooks Urea nitrogen/Creatinine [Mass ratio] 20.4 mg/mg Normal [facility] Comment on above: Performed By: #### B MP, HSTROPN, CK #### [facility] [address] [place] [address] Dr. Manfred Brooks CBC AUTO DIFFon 01-09-2023 BASO # 0.1 103/ul Normal 0.0-0.1 [facility] Comment on above: Performed By: #### C VDTBH #### [facility] [address] [place] [address] Dr. Manfred Brooks Basophils/100 WBC (Bld) 0.7 % Normal 0.2-2.0 [facility] Comment on above: Performed By: #### C VDTBH #### [facility] [address] [place] [address] Dr. Manfred Brooks EO # 0.1 103/ul Normal 0.0-0.7 [facility] Comment on above: Performed By: #### C VDTBH #### [facility] [address] [place] [address] Dr. Manfred Brooks Eosinophils/100 WBC (Bld) 1.9 % Normal 0.9-7.0 [facility] Comment on above: Performed By: #### C VDTBH #### [facility] [address] [place] [address] Dr. Manfred Brooks Erythrocyte distribution width (RBC) [Ratio] 15.5 % Critically high 11.0-15.0 [facility] Comment on above: Performed By: #### C VDTBH #### [facility] [address] [place] [address] Dr. Manfred Brooks Hematocrit (Bld) [Volume fraction] 39.1 % Normal 36.0-48.0 [facility] Comment on above: Performed By: #### C VDTBH #### [facility] [address] [place] [address] Dr. Manfred Brooks Hemoglobin (Bld) [Mass/Vol] 12.6 g/dL Normal 12.0-16.0 [facility] Comment on above: Performed By: #### C VDTBH #### [facility] [address] [place] [address] Dr. Manfred Brooks IG # 0.02 10e3/ul Normal 0.00-0.03 [facility] Comment on above: Performed By: #### C VDTBH #### [facility] [address] [place] [address] Dr. Manfred Brooks IG % 0.3 % Normal 0.0-0.5 [facility] Comment on above: Performed By: #### C VDTBH #### [facility] [address] [place] [address] Dr. Manfred Brooks LYMPH # 2.5 103/ul Normal 1.2-3.8 [facility] Comment on above: Performed By: #### C VDTBH #### [facility] [address] [place] [address] Dr. Manfred Brooks Lymphocytes/100 WBC (Bld) 36.2 % Normal 20.5-60.0 [facility] Comment on above: Performed By: #### C VDTBH #### [facility] [address] [place] [address] Dr. Manfred Brooks MANUAL DIFF REQ NO Normal [facility] Comment on above: Performed By: #### C VDTBH #### [facility] [address] [place] [address] Dr. Manfred Brooks MCH (RBC) [Entitic mass] 29.0 pg Normal 26.7-34.0 [facility] Comment on above: Performed By: #### C VDTBH #### [facility] [address] [place] [address] Dr. Manfred Brooks MCHC (RBC) [Mass/Vol] 32.2 g/dL Normal 29.9-35.2 [facility] Comment on above: Performed By: #### C VDTBH #### [facility] [address] [place] [address] Dr. Manfred Brooks MCV (RBC) [Entitic vol] 89.9 fL Normal 81.0-99.0 [facility] Comment on above: Performed By: #### C VDTBH #### [facility] [address] [place] [address] Dr. Manfred Brooks MONO # 0.6 103/ul Normal 0.3-0.8 [facility] Comment on above: Performed By: #### C VDTBH #### [facility] [address] [place] [address] Dr. Manfred Brooks Monocytes/100 WBC (Bld) 9.2 % Normal 1.7-12.0 [facility] Comment on above: Performed By: #### C VDTBH #### [facility] [address] [place] [address] Dr. Manfred Brooks NEUT # 3.5 103/ul Normal 1.4-6.5 [facility] Comment on above: Performed By: #### C VDTBH #### [facility] [address] [place] [address] Dr. Manfred Brooks Neutrophils/100 WBC (Bld) 51.7 % Normal 43.0-75.0 [facility] Comment on above: Performed By: #### C VDTBH #### [facility] [address] [place] [address] Dr. Manfred Brooks Platelet mean volume (Bld) [Entitic vol] 11.3 fL Normal 9.5-13.5 [facility] Comment on above: Performed By: #### C VDTBH #### [facility] [address] [place] [address] Dr. Manfred Brooks PLT 215 103/ul Normal 150-450 [facility] Comment on above: Performed By: #### C VDTBH #### [facility] [address] [place] [address] Dr. Manfred Brooks RBC 4.35 106/ul Normal 4.20-5.40 [facility] Comment on above: Performed By: #### C VDTBH #### [facility] [address] [place] [address] Dr. Manfred Brooks WBC 6.8 103/ul Normal 4.0-11.0 [facility] Comment on above: Performed By: #### C VDTBH #### [facility] [address] [place] [address] Dr. Manfred Brooks CPKon 01-09-2023 CK [Catalytic activity/Vol] 121 U/L Normal 26-192 [facility] Comment on above: Performed By: #### B MP, HSTROPN, CK #### [facility] [address] [place] [address] Dr. Manfred Brooks PROF CHEM 8 (BAS METB)on Anion gap [Moles/Vol] 14.2 mmol/L Normal [facility] Comment on above: Performed By: #### B MP, HSTROPN, CK #### [facility] [address] [place] [address] Dr. Manfred Brooks Calcium [Mass/Vol] 9.3 mg/dL Normal 8.5-10.1 [facility] Comment on above: Performed By: #### B MANN HSTROPN, CK #### [facility] [address] [place] [address] Dr. Manfred Brooks Chloride [Moles/Vol] 103 mmol/L Normal 98-107 [facility] Comment on above: Performed By: #### B MANN HSTROPN, CK #### [facility] [address] [place] [address] Dr. Manfred Brooks CO2 [Moles/Vol] 30.5 mmol/L Normal 21.0-32.0 [facility] Comment on above: Performed By: #### B MANN HSTROPN, CK #### [facility] [address] [place] [address] Dr. Manfred Brooks Creatinine [Mass/Vol] 0.76 mg/dL Normal 0.55-1.02 [facility] Comment on above: Performed By: #### B MANN HSTROPN, CK #### [facility] [address] [place] [address] Dr. Manfred Brooks EGFR-AF [place] >60 Normal >=60 [facility] Comment on above: Performed By: #### B MANN HSTROPN, CK #### [facility] [address] [place] [address] Dr. Manfred Brooks EGFR-NON AF [place] >60 Normal >=60 [facility] Comment on above: Performed By: #### B MP, HSTROPN, CK #### [facility] [address] [address] [address] Manfred Brooks Glucose [Mass/Vol] 97 mg/dL Normal 74-106 [facility] Comment on above: Performed By: #### B MP, HSTROPN, CK #### [facility] [address] [place] [address] Dr. Manfred Brooks Potassium [Moles/Vol] 4.7 mmol/L Normal 3.5-5.1 [facility] Comment on above: Performed By: #### B MP, HSTROPN, CK #### [facility] [address] [address] [address] Manfred Brooks Sodium [Moles/Vol] 143 mmol/L Normal 136-145 [facility] Comment on above: Performed By: #### B MP, HSTROPN, CK #### [facility] [address] [place] [address] Dr. Manfred Brooks Urea nitrogen [Mass/Vol] 16.0 mg/dL Normal 7.0-18.0 [facility] Comment on above: Performed By: #### B MP, HSTROPN, CK #### [facility] [address] [address] [address] Manfred Brooks Urea nitrogen/Creatinine [Mass ratio] 21.1 mg/mg Normal [facility] Comment on above: Performed By: #### B MP, HSTROPN, CK #### [facility] [address] [place] [address] Dr. Manfred Brooks TROPONIN, HIGH SENSITIVITYon 01-09-2023 HSTROP 6.1 pg/mL Normal 4.0-51.3 [facility] Comment on above: Result Comment: CUT- OFF POINTS HAVE BEEN ESTABLISHED BASED ON THE FOURTH UNIVERSAL DEFINITIONS OF MYOCARDIAL INFARCTION. THE UPPER REFERENCE LIMIT (URL) OF TROPONIN, DEFINED THE 99TH PERCENTILE OF cTnI DISTRIBUTION IN A REFERENCE POPULATION, HAS BEEN CONFIRMED THE DECISION THRESHOLD FOR CT DIAGNOSIS. Performed By: #### B MP, HSTROPN, CK #### [facility] [address] [place] [address] Dr. Manfred Brooks XR CHEST 1 Von 03-31-2023 XR CHEST 1 V EXAM: XR CHEST [...] Date: 2023-01-09 08:12 Normal [facility] CBC AUTO DIFFon 01-07-2023 BASO # 0.1 103/ul Normal 0.0-0.1 [facility] Comment on above: Performed By: #### B MP, HSTROPN, CK #### [facility] [address] [place] [address] Dr. Manfred Brooks Basophils/100 WBC (Bld) 0.8 % Normal 0.2-2.0 [facility] Comment on above: Performed By: #### B MP, HSTROPN, CK #### [facility] [address] [address] [address] Manfred Brooks EO # 0.1 103/ul Normal 0.0-0.7 [facility] Comment on above: Performed By: #### B MP, HSTROPN, CK #### [facility] [address] [address] [address] Manfred Brooks Eosinophils/100 WBC (Bld) 2.4 % Normal 0.9-7.0 [facility] Comment on above: Performed By: #### B MP, HSTROPN, CK #### [facility] [address] [address] [address] Manfred Brooks Erythrocyte distribution width (RBC) [Ratio] 15.6 % Critically high 11.0-15.0 [facility] Comment on above: Performed By: #### B MP, HSTROPN, CK #### [facility] [address] [address] [address] Manfred Brooks Hematocrit (Bld) [Volume fraction] 36.6 % Normal 36.0-48.0 [facility] Comment on above: Performed By: #### B MP, HSTROPN, CK #### [facility] [address] [address] [address] Manfred Brooks Hemoglobin (Bld) [Mass/Vol] 11.8 g/dL Critically low 12.0-16.0 [facility] Comment on above: Result Comment: RON ENT RECIEVED FLUIDS YESTERDAY AFTER MORNING CBC Performed By: #### B MP, HSTROPN, CK #### [facility] [address] [place] [address] Dr. Manfred Brooks IG # 0.01 10e3/ul Normal 0.00-0.03 [facility] Comment on above: Performed By: #### B MP, HSTROPN, CK #### [facility] [address] [place] [address] Dr. Manfred Brooks IG % 0.2 % Normal 0.0-0.5 [facility] Comment on above: Performed By: #### B MP, HSTROPN, CK #### [facility] [address] [address] [address] Manfred Brooks LYMPH # 2.1 103/ul Normal 1.2-3.8 [facility] Comment on above: Performed By: #### B MP, HSTROPN, CK #### [facility] [address] [address] [address] Manfred Brooks Lymphocytes/100 WBC (Bld) 35.1 % Normal 20.5-60.0 [facility] Comment on above: Performed By: #### B MP, HSTROPN, CK #### [facility] [address] [address] [address] Manfred Brooks MANUAL DIFF REQ NO Normal [facility] Comment on above: Performed By: #### B MP, HSTROPN, CK #### [facility] [address] [address] [address] Manfred Brooks MCH (RBC) [Entitic mass] 28.9 pg Normal 26.7-34.0 [facility] Comment on above: Performed By: #### B MP, HSTROPN, CK #### [facility] [address] [place] [address] Dr. Manfred Brooks MCHC (RBC) [Mass/Vol] 32.2 g/dL Normal 29.9-35.2 [facility] Comment on above: Performed By: #### B MP, HSTROPN, CK #### [facility] [address] [place] [address] Dr. Mafnred Brooks MCV (RBC) [Entitic vol] 89.7 fL Normal 81.0-99.0 [facility] Comment on above: Performed By: #### B MP, HSTROPN, CK #### [facility] [address] [place] [address] Dr. Manfred Brooks MONO # 0.6 103/ul Normal 0.3-0.8 [facility] Comment on above: Performed By: #### B MP, HSTROPN, CK #### [facility] [address] [place] [address] Dr. Manfred Brooks Monocytes/100 WBC (Bld) 9.4 % Normal 1.7-12.0 [facility] Comment on above: Performed By: #### B MP, HSTROPN, CK #### [facility] [address] [place] [address] Dr. Manfred Brooks NEUT # 3.1 103/ul Normal 1.4-6.5 [facility] Comment on above: Performed By: #### B MP, HSTROPN, CK #### [facility] [address] [place] [address] Dr. Manfred Brooks Neutrophils/100 WBC (Bld) 52.1 % Normal 43.0-75.0 [facility] Comment on above: Performed By: #### B MP, HSTROPN, CK #### [facility] [address] [place] [address] Dr. Manfred Brooks Platelet mean volume (Bld) [Entitic vol] 10.3 fL Normal 9.5-13.5 [facility] Comment on above: Performed By: #### B MP, HSTROPN, CK #### [facility] [address] [place] [address] Dr. Manfred Brooks PLT 252 103/ul Normal 150-450 [facility] Comment on above: Performed By: #### B MP, HSTROPN, CK #### [facility] [address] [place] [address] Dr. Manfred Brooks RBC 4.08 106/ul Critically low 4.20-5.40 [facility] Comment on above: Performed By: #### B MP, HSTROPN, CK #### [facility] [address] [place] [address] Dr. Manfred Brooks WBC 5.9 103/ul Normal 4.0-11.0 [facility] Comment on above: Performed By: #### B MP, HSTROPN, CK #### [facility] [address] [place] [address] Dr. Manfred Brooks DIGOXINon 01-07-2023 DIG 0.5 ng/mL Critically low 0.9-2.0 [facility] Comment on above: Performed By: #### MILTON BENOIT #### [facility] [address] [place] [address] Dr. Manfred Brooks PROF 14(COMP METB)on 023 Albumin [Mass/Vol] 3.6 g/dL Normal 3.4-5.0 [facility] Comment on above: Performed By: #### C VDTBH #### [facility] [address] [place] [address] Dr. Manfred Brooks Albumin/Globulin [Mass ratio] 1.3 {ratio} Normal [facility] Comment on above: Performed By: #### C VDTBH #### [facility] [address] [place] [address] Dr. Manfred Brooks ALP [Catalytic activity/Vol] 67 U/L Normal 46-116 [facility] Comment on above: Performed By: #### C VDTBH #### [facility] [address] [place] [address] Dr. Manfred Brooks ALT [Catalytic activity/Vol] 23 U/L Normal 14-59 [facility] Comment on above: Performed By: #### C VDTBH #### [facility] [address] [place] [address] Dr. Manfred Brooks Anion gap [Moles/Vol] 10.8 mmol/L Normal [facility] Comment on above: Performed By: #### C VDTBH #### [facility] [address] [address] [address] Manfred Brooks AST [Catalytic activity/Vol] 14 U/L Critically low 15-37 [facility] Comment on above: Performed By: #### C VDTBH #### [facility] [facility] [address] [place] [address] Dr. Manfred Brooks Bilirubin [Mass/Vol] 0.7 mg/dL Normal 0.2-1.0 [facility] Comment on above: Performed By: #### C VDTBH #### [facility] [address] [place] [address] Dr. Manfred Brooks Calcium [Mass/Vol] 8.7 mg/dL Normal 8.5-10.1 [facility] Comment on above: Performed By: #### C VDTBH #### [facility] [address] [place] [address] Dr. Manfred Brooks Chloride [Moles/Vol] 106 mmol/L Normal 98-107 [facility] Comment on above: Performed By: #### C VDTBH #### [facility] [address] [place] [address] Dr. Manfred Brooks CO2 [Moles/Vol] 29.8 mmol/L Normal 21.0-32.0 [facility] Comment on above: Performed By: #### C VDTBH #### [facility] [address] [place] [address] Dr. Manfred Brooks Creatinine [Mass/Vol] 0.77 mg/dL Normal 0.55-1.02 [facility] Comment on above: Performed By: #### C VDTBH #### [facility] [address] [place] [address] Dr. Manfred Brooks EGFR-AF MALAWIAN >60 Normal >=60 [facility] Comment on above: Performed By: #### C VDTBH #### [facility] [address] [address] [address] Manfred Brooks EGFR-NON AF MALAWIAN >60 Normal >=60 [facility] Comment on above: Performed By: #### C VDTBH #### [facility] [address] [address] [address] Manfred Brooks Globulin (S) [Mass/Vol] 2.7 g/dL Normal [facility] Comment on above: Performed By: #### C VDTBH #### [facility] [address] [address] [address] Manfred Brooks Glucose [Mass/Vol] 99 mg/dL Normal 74-106 [facility] Comment on above: Performed By: #### C VDTBH #### [facility] [address] [address] [address] Manfred Brooks Potassium [Moles/Vol] 3.6 mmol/L Normal 3.5-5.1 [facility] Comment on above: Performed By: #### C VDTBH #### [facility] [address] [place] [address] Dr. Manfred Brooks Protein [Mass/Vol] 6.3 g/dL Critically low 6.4-8.2 [facility] Comment on above: Performed By: #### C VDTBH #### [facility] [address] [address] [address] Manfred Brooks Sodium [Moles/Vol] 143 mmol/L Normal 136-145 [facility] Comment on above: Performed By: #### C VDTBH #### [facility] [address] [address] [address] Manfred Brooks Urea nitrogen [Mass/Vol] 19.0 mg/dL Critically high 7.0-18.0 [facility] Comment on above: Performed By: #### C VDTBH #### [facility] [address] [address] [address] Manfred Brooks Urea nitrogen/Creatinine [Mass ratio] 24.7 mg/mg Normal [facility] Comment on above: Performed By: #### C VDTB #### [facility] [address] [place] [address] Dr. Manfred Brooks BNPon 01-06-2023 Natriuretic peptide B (Bld) [Mass/Vol] 186.0 pg/mL Normal <=1,800.0 [facility] Comment on above: Performed By: #### E MILTON HOGAN #### [facility] [address] [place] [address] Dr. Manfred Brooks CBC AUTO DIFFon 01-06-2023 BASO # 0.1 103/ul Normal 0.0-0.1 [facility] Comment on above: Performed By: #### B SCREW MACHINE OPERATOR SWISS TYPE, CMP #### [facility] [address] [place] [address] Dr. Manfred Brooks Basophils/100 WBC (Bld) 1.2 % Normal 0.2-2.0 [facility] Comment on above: Performed By: #### B SCREW MACHINE OPERATOR SWISS TYPE, CMP #### [facility] [address] [place] [address] Dr. Manfred Brooks EO # 0.1 103/ul Normal 0.0-0.7 [facility] Comment on above: Performed By: #### B SCREW MACHINE OPERATOR SWISS TYPE, CMP #### [facility] [address] [place] [address] Dr. Manfred Brooks Eosinophils/100 WBC (Bld) 2.1 % Normal 0.9-7.0 [facility] Comment on above: Performed By: #### B SCREW MACHINE OPERATOR SWISS TYPE, CMP #### [facility] [address] [place] [address] Dr. Manfred Brooks Erythrocyte distribution width (RBC) [Ratio] 15.2 % Critically high 11.0-15.0 [facility] Comment on above: Performed By: #### B SCREW MACHINE OPERATOR SWISS TYPE, CMP #### [facility] [address] [place] [address] Dr. Manfred Brooks Hematocrit (Bld) [Volume fraction] 42.3 % Normal 36.0-48.0 [facility] Comment on above: Performed By: #### B SCREW MACHINE OPERATOR SWISS TYPE, CMP #### [facility] [address] [address] [address] Manfred Brooks Hemoglobin (Bld) [Mass/Vol] 13.8 g/dL Normal 12.0-16.0 [facility] Comment on above: Performed By: #### B SCREW MACHINE OPERATOR SWISS TYPE, CMP #### [facility] [address] [address] [address] Manfred Brooks IG # 0.01 10e3/ul Normal 0.00-0.03 [facility] Comment on above: Performed By: #### B SCREW MACHINE OPERATOR SWISS TYPE, CMP #### [facility] [address] [place] [address] Dr. Manfred Brooks IG % 0.2 % Normal 0.0-0.5 [facility] Comment on above: Performed By: #### B SCREW MACHINE OPERATOR SWISS TYPE, CMP #### [facility] [address] [place] [address] Dr. Manfred Brooks LYMPH # 2.1 103/ul Normal 1.2-3.8 [facility] Comment on above: Performed By: #### B SCREW MACHINE OPERATOR SWISS TYPE, CMP #### [facility] [address] [place] [address] Dr. Manfred Brooks Lymphocytes/100 WBC (Bld) 35.6 % Normal 20.5-60.0 [facility] Comment on above: Performed By: #### B SCREW MACHINE OPERATOR SWISS TYPE, CMP #### [facility] [address] [place] [address] Dr. Manfred Brooks MANUAL DIFF REQ NO Normal [facility] Comment on above: Performed By: #### B SCREW MACHINE OPERATOR SWISS TYPE, CMP #### [facility] [address] [place] [address] Dr. Manfred Brooks MCH (RBC) [Entitic mass] 29.1 pg Normal 26.7-34.0 [facility] Comment on above: Performed By: #### B SCREW MACHINE OPERATOR SWISS TYPE, CMP #### [facility] [address] [place] [address] Dr. Manfred Brooks MCHC (RBC) [Mass/Vol] 32.6 g/dL Normal 29.9-35.2 [facility] Comment on above: Performed By: #### B SCREW MACHINE OPERATOR SWISS TYPE, CMP #### [facility] [address] [place] [address] Dr. Manfred Brooks MCV (RBC) [Entitic vol] 89.2 fL Normal 81.0-99.0 [facility] Comment on above: Performed By: #### B SCREW MACHINE OPERATOR SWISS TYPE, CMP #### [facility] [address] [place] [address] Dr. Manfred Brooks MONO # 0.5 103/ul Normal 0.3-0.8 [facility] Comment on above: Performed By: #### B SCREW MACHINE OPERATOR SWISS TYPE, CMP #### [facility] [address] [place] [address] Dr. Manfred Brooks Monocytes/100 WBC (Bld) 9.0 % Normal 1.7-12.0 [facility] Comment on above: Performed By: #### B SCREW MACHINE OPERATOR SWISS TYPE, CMP #### [facility] [address] [place] [address] Dr. Manfred Brooks NEUT # 3.0 103/ul Normal 1.4-6.5 [facility] Comment on above: Performed By: #### B SCREW MACHINE OPERATOR SWISS TYPE, CMP #### [facility] [address] [place] [address] Dr. Manfred Brooks Neutrophils/100 WBC (Bld) 51.9 % Normal 43.0-75.0 [facility] Comment on above: Performed By: #### B SCREW MACHINE OPERATOR SWISS TYPE, CMP #### [facility] [address] [place] [address] Dr. Manfred Brooks Platelet mean volume (Bld) [Entitic vol] 10.1 fL Normal 9.5-13.5 [facility] Comment on above: Performed By: #### B SCREW MACHINE OPERATOR SWISS TYPE, CMP #### [facility] [address] [place] [address] Dr. Manfred Brooks PLT 290 103/ul Normal 150-450 [facility] Comment on above: Performed By: #### B SCREW MACHINE OPERATOR SWISS TYPE, CMP #### [facility] [address] [place] [address] Dr. Manfred Brooks RBC 4.74 106/ul Normal 4.20-5.40 [facility] Comment on above: Performed By: #### B SCREW MACHINE OPERATOR SWISS TYPE, CMP #### [facility] [address] [place], [place] [address] Dr. Manfred Brooks WBC 5.8 103/ul Normal 4.0-11.0 [facility] Comment on above: Performed By: #### B SCREW MACHINE OPERATOR SWISS TYPE, CMP #### [facility] [address] [place], [place] [address] Dr. Manfred Brooks Covid-19 PCR (CVDTB)on 12-11 SARS-CoV-2 (COVID-19) RNA DAMIR+probe Ql (Unsp spec) Not detected Normal NOT DETECTED [facility] Comment on above: Result Comment: When [...] for this test is supported by the [place] of Health and Human Service's declaration that [...] By: #### C VDTBH #### [facility] [address] [address] [address] Manfred Brooks ECHOCARDIO M/2D COMPLETEon 0 01-06-2023 ECHOCARDIO M/2D COMPLETE Patient: BETTY CAMARENA Exam Date: 01/06/2023 : 1940 Gender:F Ordering : DR CAM BATES . Admission #: [id number] Family : DR DENISA ALEJANDRE M.D. Order #: [id number] CLICK HERE TO VIEW EXAM ECHOCARDIOGRAM REPORT [...] Alejandre M.D. on 01/06/2023 at 17:34 Normal [facility] FREE T3on 01-06-2023 FREE T3 5.79 pg/mlL Critically high 2.18-3.98 [facility] Comment on above: Performed By: #### C VDTBH #### [facility] [address] [place] [address] Dr. Manfred Brooks LACTATE/LACTIC ACIDon 2022 Lactate [Moles/Vol] 1.6 mmol/L Normal 0.4-2.0 [facility] Comment on above: Performed By: #### B MP, HSTROPN, CK #### [facility] [address] [place] [address] Dr. Manfred Brooks PROF 14(COMP METB)on 023 Albumin [Mass/Vol] 4.1 g/dL Normal 3.4-5.0 [facility] Comment on above: Performed By: #### ANU BENOITRO #### [facility] [address] [place] [address] Dr. Manfred Brooks Albumin/Globulin [Mass ratio] 1.2 {ratio} Normal [facility] Comment on above: Performed By: #### ANU BENOITRO #### [facility] [address] [place] [address] Dr. Manfred Brooks ALP [Catalytic activity/Vol] 74 U/L Normal 46-116 [facility] Comment on above: Performed By: #### Nikolas HOGAN UMICRO #### [facility] [address] [address] [address] Manfred Brooks ALT [Catalytic activity/Vol] 29 U/L Normal 14-59 [facility] Comment on above: Performed By: #### E SAMIRA, UMICRO #### [facility] [address] [address] [address] Manfred Brooks Anion gap [Moles/Vol] 13.8 mmol/L Normal [facility] Comment on above: Performed By: #### E SAMIRA, UMICRO #### [facility] [address] [place] [address] Dr. Manfred Brooks AST [Catalytic activity/Vol] 19 U/L Normal 15-37 [facility] Comment on above: Performed By: #### Nikolas HOGAN UMICRO #### [facility] [address] [place] [address] Dr. Manfred Brooks Bilirubin [Mass/Vol] 0.4 mg/dL Normal 0.2-1.0 [facility] Comment on above: Performed By: #### Nikolas HOGAN UMICRO #### [facility] [address] [place] [address] Dr. Manfred Brooks Calcium [Mass/Vol] 9.6 mg/dL Normal 8.5-10.1 [facility] Comment on above: Performed By: #### Nikolas HOGAN, UMICRO #### [facility] [address] [place] [address] Dr. Manfred Brooks Chloride [Moles/Vol] 108 mmol/L Critically high 98-107 [facility] Comment on above: Performed By: #### Nikolas HOGAN, UMICRO #### [facility] [address] [address] [address] Manfred Brooks CO2 [Moles/Vol] 31.0 mmol/L Normal 21.0-32.0 [facility] Comment on above: Performed By: #### Nikolas HOGAN, UMICRO #### [facility] [address] [place] [address] Dr. Manfred Brooks Creatinine [Mass/Vol] 0.80 mg/dL Normal 0.55-1.02 [facility] Comment on above: Performed By: #### ANU BENOITRO #### [facility] [address] [place] [address] Dr. Manfred Brooks EGFR-AF MALAWIAN >60 Normal >=60 [facility] Comment on above: Performed By: #### ANU BENOITRO #### [facility] [address] [place] [address] Dr. Manfred Brooks EGFR-NON AF MALAWIAN >60 Normal >=60 [facility] Comment on above: Performed By: #### ANU BENOITRO #### [facility] [address] [place] [address] Dr. Manfred Brooks Globulin (S) [Mass/Vol] 3.3 g/dL Normal [facility] Comment on above: Performed By: #### ANU BENOITRO #### [facility] [address] [place] [address] Dr. Manfred Brooks Glucose [Mass/Vol] 132 mg/dL Critically high 74-106 [facility] Comment on above: Performed By: #### ANU BENOITRO #### [facility] [address] [place] [address] Dr. Manfred Brooks Potassium [Moles/Vol] 3.8 mmol/L Normal 3.5-5.1 [facility] Comment on above: Performed By: #### ANU BENOITRO #### [facility] [address] [place] [address] Dr. Manfred Brooks Protein [Mass/Vol] 7.4 g/dL Normal 6.4-8.2 [facility] Comment on above: Performed By: #### ANU BENOITRO #### [facility] [address] [place] [address] Dr. Manfred Brooks Sodium [Moles/Vol] 149 mmol/L Critically high 136-145 [facility] Comment on above: Performed By: #### ANU BENOITRO #### [facility] [address] [place] [address] Dr. Manfred Brooks Urea nitrogen [Mass/Vol] 20.0 mg/dL Critically high 7.0-18.0 [facility] Comment on above: Performed By: #### MILTON BENOIT #### [facility] [address] [place] [address] Dr. Manfred Brooks Urea nitrogen/Creatinine [Mass ratio] 25.0 mg/mg Normal [facility] Comment on above: Performed By: #### MILTON BENOIT #### [facility] [address] [place] [address] Dr. Manfred Brooks PROTIMEon 01-06-2023 INR Coag (PPP) [Relative time] 0.99 {INR} Normal [facility] Comment on above: Performed By: #### B JAMILAH DARNELL CK #### [facility] [address] [place] [address] Dr. Manfred Brooks INR GUIDELINES SEE BELOW Normal [facility] Comment on above: Result Comment: JUSTYN RED INR: 2.0 - 3.0 CONDITIONS NOT LISTED BELOW 2.5 - 3.5 FOR PROSTHETIC HEART VALVE REPLACEMENT 2.5 - 3.5 RECURRENT THROMBOSIS Performed By: #### B JAMILAH DARNELL CK #### [facility] [address] [place] [address] Dr. Manfred Brooks PT Coag (PPP) [Time] 10.5 s Normal 9.0-11.6 [facility] Comment on above: Performed By: #### B JAMILAH DARNELL, CK #### [facility] [address] [place] [address] Dr. Manfred Brooks PTTon 01-06-2023 aPTT Coag (Bld) [Time] 28.9 s Normal 22.3-36.2 [facility] Comment on above: Performed By: #### B JAMILAH DARNELL CK #### [facility] [address] [place] [address] Dr. Manfred Brooks T4on 01-06-2023 T4 [Mass/Vol] 8.00 ug/dL Normal 4.80-13.90 [facility] Comment on above: Performed By: #### B SCREW MACHINE OPERATOR SWISS TYPE, CMP #### [facility] [address] [place], [place] [address] Dr. Manfred Brooks TROPONIN, HIGH SENSITIVITYon 01-06-2023 HSTROP 18.1 pg/mL Normal 4.0-51.3 [facility] Comment on above: Result Comment: CUT- OFF POINTS HAVE BEEN ESTABLISHED BASED ON THE FOURTH UNIVERSAL DEFINITIONS OF MYOCARDIAL INFARCTION. THE UPPER REFERENCE LIMIT (URL) OF TROPONIN, DEFINED THE 99TH PERCENTILE OF cTnI DISTRIBUTION IN A REFERENCE POPULATION, HAS BEEN CONFIRMED THE DECISION THRESHOLD FOR CT DIAGNOSIS. Performed By: #### E RUR, UMICRO #### [facility] [address] [address] [address] Manfred Brooks HSTROP 10.5 pg/mL Normal 4.0-51.3 [facility] Comment on above: Result Comment: CUT- OFF POINTS HAVE BEEN ESTABLISHED BASED ON THE FOURTH UNIVERSAL DEFINITIONS OF MYOCARDIAL INFARCTION. THE UPPER REFERENCE LIMIT (URL) OF TROPONIN, DEFINED THE 99TH PERCENTILE OF cTnI DISTRIBUTION IN A REFERENCE POPULATION, HAS BEEN CONFIRMED THE DECISION THRESHOLD FOR CT DIAGNOSIS. Performed By: #### E RUR, UMICRO #### [facility] [address] [address] [address] Manfred Brooks TSHon 01-06-2023 TSH 0.567 uIU/mL Normal 0.358-3.740 [facility] Comment on above: Performed By: #### C VDTB #### [facility] [address] [address] [address] Manfred Brooks XR CHEST 1 Von [...] bibasilar atelectasis versus infiltrates. Electronically authenticated by: JOHAN Kapadia: 2023-01-06 07:11 Normal [facility] PROF CHEM 8 (BAS METB)on Anion gap [Moles/Vol] 13.1 mmol/L Normal [facility] Comment on above: Performed By: #### E JAMILAR, UMICRO #### [facility] [address] [place] [address] Dr. Manfred Brooks Calcium [Mass/Vol] 9.3 mg/dL Normal 8.5-10.1 [facility] Comment on above: Performed By: #### E JAMILAR, UMICRO #### [facility] [address] [place] [address] Dr. Manfred Brooks Chloride [Moles/Vol] 104 mmol/L Normal 98-107 [facility] Comment on above: Performed By: #### E SAMIRA, UMICRO #### [facility] [address] [place] [address] Dr. Manfred Brooks CO2 [Moles/Vol] 29.7 mmol/L Normal 21.0-32.0 [facility] Comment on above: Performed By: #### Nikolas HOGAN UMICRO #### [facility] [address] [place] [address] Dr. Manfred Brooks Creatinine [Mass/Vol] 0.72 mg/dL Normal 0.55-1.02 [facility] Comment on above: Performed By: #### Nikolas HOGAN, UMICRO #### [facility] [address] [place] [address] Dr. Manfred Brooks EGFR-AF MALAWIAN >60 Normal >=60 [facility] Comment on above: Performed By: #### E SAMIRA, UMICRO #### [facility] [address] [place] [address] Dr. Manfred Brooks EGFR-NON AF MALAWIAN >60 Normal >=60 [facility] Comment on above: Performed By: #### E JAMILAR, UMICRO #### [facility] [address] [place] [address] Dr. Manfred Brooks Glucose [Mass/Vol] 129 mg/dL Critically high 74-106 [facility] Comment on above: Performed By: #### MILTON BENOIT #### [facility] [address] [address] [address] Manfred Brooks Potassium [Moles/Vol] 4.8 mmol/L Normal 3.5-5.1 [facility] Comment on above: Result Comment: spec imen slightly hemolysed. suggest repeat. Performed By: #### MILTON BENOIT #### [facility] [address] [place] [address] Dr. Manfred Brooks Sodium [Moles/Vol] 142 mmol/L Normal 136-145 [facility] Comment on above: Performed By: #### MILTON BENOIT #### [facility] [address] [place] [address] Dr. Manfred Brooks Urea nitrogen [Mass/Vol] 17.0 mg/dL Normal 7.0-18.0 [facility] Comment on above: Performed By: #### MILTON BENOIT #### [facility] [address] [place] [address] Dr. Manfred Brooks Urea nitrogen/Creatinine [Mass ratio] 23.6 mg/mg Normal [facility] Comment on above: Performed By: #### MILTON BENOIT #### [facility] [address] [place] [address] Dr. Manfred Brooks BNPon 05-16-2022 Natriuretic peptide B (Bld) [Mass/Vol] 322.0 pg/mL Normal <=1,800.0 [facility] Comment on above: Performed By: #### B MP, HSTROPN, CK #### [facility] [address] [place] [address] Dr. Manfred Brooks CARDIAC TELMA ADMITon 022 CK [Catalytic activity/Vol] 109 U/L Normal 26-192 [facility] Comment on above: Performed By: #### B MP, HSTROPN, CK #### [facility] [address] [place] [address] Dr. Manfred Brooks CK.MB [Mass/Vol] 1.43 ng/mL Normal <=3.60 [facility] Comment on above: Performed By: #### B MP, HSTROPN, CK #### [facility] [address] [place] [address] Dr. Manfred Brooks HSTROP 19.6 pg/mL Normal 4.0-51.3 [facility] Comment on above: Result Comment: CUT- OFF POINTS HAVE BEEN ESTABLISHED BASED ON THE FOURTH UNIVERSAL DEFINITIONS OF MYOCARDIAL INFARCTION. THE UPPER REFERENCE LIMIT (URL) OF TROPONIN, DEFINED THE 99TH PERCENTILE OF cTnI DISTRIBUTION IN A REFERENCE POPULATION, HAS BEEN CONFIRMED THE DECISION THRESHOLD FOR CT DIAGNOSIS. Performed By: #### B MP, HSTROPN, CK #### [facility] [address] [place] [address] Dr. Manfred Brooks MAHOGANY 71 ng/mL Normal 9-82 [facility] Comment on above: Performed By: #### B MP, HSTROPN, CK #### [facility] [address] [place] [address] Dr. Manfred Brooks CBC AUTO DIFFon 05-16-2022 BASO # 0.1 103/ul Normal 0.0-0.1 [facility] Comment on above: Performed By: #### B MP, HSTROPN, CK #### [facility] [address] [place] [address] Dr. Manfred Brooks Basophils/100 WBC (Bld) 1.4 % Normal 0.2-2.0 [facility] Comment on above: Performed By: #### B MP, HSTROPN, CK #### [facility] [address] [place] [address] Dr. Manfred Brooks EO # 0.1 103/ul Normal 0.0-0.7 [facility] Comment on above: Performed By: #### B MP, HSTROPN, CK #### [facility] [address] [place] [address] Dr. Manfred Brooks Eosinophils/100 WBC (Bld) 2.3 % Normal 0.9-7.0 [facility] Comment on above: Performed By: #### B MP, HSTROPN, CK #### [facility] [address] [place] [address] Dr. Manfred Brooks Erythrocyte distribution width (RBC) [Ratio] 14.4 % Normal 11.0-15.0 [facility] Comment on above: Performed By: #### B MP, HSTROPN, CK #### [facility] [address] [place] [address] Dr. Manfred Brooks Hematocrit (Bld) [Volume fraction] 38.1 % Normal 36.0-48.0 [facility] Comment on above: Performed By: #### B MP, HSTROPN, CK #### [facility] [address] [place] [address] Dr. Manfred Brooks Hemoglobin (Bld) [Mass/Vol] 12.1 g/dL Normal 12.0-16.0 [facility] Comment on above: Performed By: #### B MP, HSTROPN, CK #### [facility] [address] [place] [address] Dr. Manfred Brooks IG # 0.01 10e3/ul Normal 0.00-0.03 [facility] Comment on above: Performed By: #### B MP, HSTROPN, CK #### [facility] [address] [place] [address] Dr. Manfred Brooks IG % 0.2 % Normal 0.0-0.5 [facility] Comment on above: Performed By: #### B MP, HSTROPN, CK #### [facility] [address] [place] [address] Dr. Manfred Brooks LYMPH # 1.0 103/ul Critically low 1.2-3.8 [facility] Comment on above: Performed By: #### B MP, HSTROPN, CK #### [facility] [address] [place] [address] Dr. Manfred Brooks Lymphocytes/100 WBC (Bld) 22.4 % Normal 20.5-60.0 [facility] Comment on above: Performed By: #### B MP, HSTROPN, CK #### [facility] [address] [place] [address] Dr. Manfred Brooks MANUAL DIFF REQ NO Normal [facility] Comment on above: Performed By: #### B MP, HSTROPN, CK #### [facility] [address] [place] [address] Dr. Manfred Brooks MCH (RBC) [Entitic mass] 28.9 pg Normal 26.7-34.0 [facility] Comment on above: Performed By: #### B MP, HSTROPN, CK #### [facility] [address] [place] [address] Dr. Manfred Brooks MCHC (RBC) [Mass/Vol] 31.8 g/dL Normal 29.9-35.2 [facility] Comment on above: Performed By: #### B MP, HSTROPN, CK #### [facility] [address] [place] [address] Dr. Manfred Brooks MCV (RBC) [Entitic vol] 90.9 fL Normal 81.0-99.0 [facility] Comment on above: Performed By: #### B MP, HSTROPN, CK #### [facility] [address] [place] [address] Dr. Manfred Brooks MONO # 0.5 103/ul Normal 0.3-0.8 [facility] Comment on above: Performed By: #### B MP, HSTROPN, CK #### [facility] [address] [place] [address] Dr. Manfred Brooks Monocytes/100 WBC (Bld) 10.2 % Normal 1.7-12.0 [facility] Comment on above: Performed By: #### B MP, HSTROPN, CK #### [facility] [address] [place] [address] Dr. Manfred Brooks NEUT # 2.8 103/ul Normal 1.4-6.5 [facility] Comment on above: Performed By: #### B MP, HSTROPN, CK #### [facility] [address] [place] [address] Dr. Manfred Brooks Neutrophils/100 WBC (Bld) 63.5 % Normal 43.0-75.0 [facility] Comment on above: Performed By: #### B MANN HSTROPN, CK #### [facility] [address] [place] [address] Dr. Manfred Brooks Platelet mean volume (Bld) [Entitic vol] 10.1 fL Normal 9.5-13.5 [facility] Comment on above: Performed By: #### B MANN HSTROPN, CK #### [facility] [address] [place] [address] Dr. Manfred Brooks PLT 268 103/ul Normal 150-450 [facility] Comment on above: Performed By: #### B MANN HSTROPN, CK #### [facility] [address] [place] [address] Dr. Manfred Brooks RBC 4.19 106/ul Critically low 4.20-5.40 [facility] Comment on above: Performed By: #### B MANN HSTROPJim, CK #### [facility] [address] [place] [address] Dr. Manfred Brooks WBC 4.4 103/ul Normal 4.0-11.0 [facility] Comment on above: Performed By: #### B VENESSA DARNELLTROPJim, CK #### [facility] [address] [place] [address] STROKE HEAD WOon 05-16-20 CT STROKE HEAD WO EXAMINATION: CT STRO [...] Date: 2022-05-16 12:01 Normal The [facility] CTA NECK WO W CONon 05-16-20 [...] canal or foraminal narrowing. Electronically authenticated by: JOHAN MCKEON Date: 2022-05-16 13:32 Normal [facility] CULTURE URINEon 05-16-2022 CULTURE URINE Culture Observations : LIGHT GROWTH OF MIXED GENITAL BETO. NO POTENTIAL PATHOGENS SEEN. Normal [facility] Comment on above: Performed By: #### B MP, HSTROPJim, CK #### [facility] [address] [place] [address] Dr. Manfred Brooks Covid-19 PCR ([facility])on SARS-CoV-2 (COVID-19) RNA DAMIR+probe Ql (Unsp spec) Not detected Normal NOT DETECTED [facility] Comment on above: Result Comment: When [...] for this test is supported by the [employer] of [employer] and Human Service's declaration that [...] By: #### C VDTBH #### [facility] [address] [place] [address] Dr. Manfred Brooks DIGOXINon 05-16-2022 DIG 2.3 ng/mL Critically high 0.9-2.0 [facility] Comment on above: Result Comment: repe ated Performed By: #### B MP, HSTROPN, CK #### [facility] [address] [place] [address] Dr. Manfred Brooks ER URINE PROFILEon 2 Bilirubin Ql (U) Negative Normal NEGATIVE [facility] Comment on above: Performed By: #### E ANU HOGANRO #### [facility] [address] [place] [address] Dr. Manfred Brooks Clarity (U) CLEAR Normal CLEAR [facility] Comment on above: Performed By: #### E SAMIRA UMICRO #### [facility] [address] [place] [address] Dr. Manfred Brooks Color (U) LT. YELLOW Normal YELLOW [facility] Comment on above: Performed By: #### E SAMIRA UMICRO #### [facility] [address] [place] [address] Dr. Manfred Brooks ERUAHD A micrscopic examination will be performed if indicated. Normal [facility] Comment on above: Performed By: #### Nikolas HOGAN UMICRO #### [facility] [address] [address] [address] Manfred Brooks Glucose Ql (U) Negative Normal NEGATIVE The [facility] Comment on above: Performed By: #### Nikolas HOGAN UMICRO #### [facility] [address] [place] [address] Dr. Manfred Brooks Hemoglobin Ql (U) Negative Normal NEGATIVE The [facility] Comment on above: Performed By: #### Nikolas HOGAN UMICRO #### [facility] [address] [place] [address] Dr. Manfred Brooks Ketones Ql (U) Negative Normal NEGATIVE [facility] Comment on above: Performed By: #### Nikolas HOGAN UMICRO #### [facility] [address] [place] [address] Dr. Manfred Brooks LEUKOCYTES MODERATE Abnormal NEGATIVE [facility] Comment on above: Performed By: #### SUBHASH BENOITICRO #### [facility] [address] [place] [address] Dr. Manfred Brooks Nitrite Ql (U) Negative Normal NEGATIVE [facility] Comment on above: Performed By: #### SUBHASH BENOITICRO #### [facility] [address] [place] [address] Dr. Manfred Brooks pH (U) 6.5 [pH] Normal 5-9 [facility] Comment on above: Performed By: #### ANU BENOITRO #### [facility] [address] [place] [address] Dr. Manfred Brooks SPEC GRAVITY <=1.005 Abnormal 1.005-<=1.025 [facility] Comment on above: Performed By: #### SUBHASH BENOITICRO #### [facility] [address] [place] [address] Dr. Manfred Brooks UA PROTEIN Negative Normal NEGATIVE/ TRACE [facility] Comment on above: Performed By: #### ANU BENOITRO #### [facility] [address] [place] [address] Dr. Manfred Brooks UR MICRO IND INDICATED Normal [facility] Comment on above: Performed By: #### E ANU HOGANRO #### [facility] [address] [place] [address] Dr. Manfred Brooks Urobilinogen Qn (U) 0.2 {Antionette'U}/dL Normal 0.2 - 1. 0 [facility] Comment on above: Performed By: #### ANU BENOITRO #### [facility] [address] [place] [address] Dr. Manfred Brooks POINT OF CARE GLUCOSEon Glucose [Mass/Vol] 109 mg/dL Critically high 74-106 [facility] Comment on above: Performed By: #### P OCGLUC #### [facility] [address] [place] [address] Dr. Manfred Brooks PROF 14(COMP METB)on 022 Albumin [Mass/Vol] 3.9 g/dL Normal 3.4-5.0 [facility] Comment on above: Performed By: #### B MP, HSTROPN, CK #### [facility] [address] [place] [address] Dr. Manfred Brooks Albumin/Globulin [Mass ratio] 1.3 {ratio} Normal [facility] Comment on above: Performed By: #### B MP, HSTROPN, CK #### [facility] [address] [place] [address] Dr. Manfred Brooks ALP [Catalytic activity/Vol] 58 U/L Normal 46-116 [facility] Comment on above: Performed By: #### B MP, HSTROPN, CK #### [facility] [address] [place] [address] Dr. Manfred Brooks ALT [Catalytic activity/Vol] 28 U/L Normal 14-59 [facility] Comment on above: Performed By: #### B MP, HSTROPN, CK #### [facility] [address] [place] [address] Dr. Manfred Brooks Anion gap [Moles/Vol] 11.4 mmol/L Normal [facility] Comment on above: Performed By: #### B MP, HSTROPN, CK #### [facility] [address] [place] [address] Dr. Manfred Brooks AST [Catalytic activity/Vol] 18 U/L Normal 15-37 [facility] Comment on above: Performed By: #### B MP, HSTROPN, CK #### [facility] [address] [place] [address] Dr. Manfred Brooks Bilirubin [Mass/Vol] 0.6 mg/dL Normal 0.2-1.0 [facility] Comment on above: Performed By: #### B MP, HSTROPN, CK #### [facility] [address] [place] [address] Dr. Manfred Brooks Calcium [Mass/Vol] 8.8 mg/dL Normal 8.5-10.1 [facility] Comment on above: Performed By: #### B MP, HSTROPN, CK #### [facility] [address] [place] [address] Dr. Manfred Brooks Chloride [Moles/Vol] 106 mmol/L Normal 98-107 [facility] Comment on above: Performed By: #### B MANN HSTROPN, CK #### [facility] [address] [place] [address] Dr. Manfred Brooks CO2 [Moles/Vol] 31.3 mmol/L Normal 21.0-32.0 [facility] Comment on above: Performed By: #### B MP, HSTROPN, CK #### [facility] [address] [place] [address] Dr. Manfred Brooks Creatinine [Mass/Vol] 0.76 mg/dL Normal 0.55-1.02 [facility] Comment on above: Performed By: #### B MP, HSTROPN, CK #### [facility] [address] [place] [address] Dr. Manfred Brooks EGFR-AF MALAWIAN >60 Normal >=60 [facility] Comment on above: Performed By: #### B MP, HSTROPN, CK #### [facility] [address] [address] [address] Manfred Brooks EGFR-NON AF MALAWIAN >60 Normal >=60 [facility] Comment on above: Performed By: #### B MP, HSTROPN, CK #### [facility] [address] [address] [address] Manfred Brooks Globulin (S) [Mass/Vol] 2.9 g/dL Normal [facility] Comment on above: Performed By: #### B MP, HSTROPN, CK #### [facility] [address] [address] [address] Manfred Brooks Glucose [Mass/Vol] 122 mg/dL Critically high 74-106 [facility] Comment on above: Performed By: #### B MP, HSTROPN, CK #### [facility] [address] [place] [address] Dr. Manfred Brooks Potassium [Moles/Vol] 3.7 mmol/L Normal 3.5-5.1 [facility] Comment on above: Performed By: #### B MP, HSTROPN, CK #### [facility] [address] [address] [address] Manfred Brooks Protein [Mass/Vol] 6.8 g/dL Normal 6.4-8.2 [facility] Comment on above: Performed By: #### B MP, HSTROPN, CK #### [facility] [address] [address] [address] Manfred Brooks Sodium [Moles/Vol] 145 mmol/L Normal 136-145 [facility] Comment on above: Performed By: #### B MP, HSTROPN, CK #### [facility] [address] [address] [address] Manfred Brooks Urea nitrogen [Mass/Vol] 18.0 mg/dL Normal 7.0-18.0 [facility] Comment on above: Performed By: #### B MP, HSTROPN, CK #### [facility] [address] [address] [address] Manfred Brooks Urea nitrogen/Creatinine [Mass ratio] 23.7 mg/mg Normal [facility] Comment on above: Performed By: #### B JAMILAH DARNELL CK #### [facility] [address] [place] [address] Dr. Manfred Brooks PROTIMEon 05-16-2022 INR Coag (PPP) [Relative time] 1.08 {INR} Normal [facility] Comment on above: Performed By: #### MILTON BENOIT #### [facility] [address] [place] [address] Dr. Manfred Brooks INR GUIDELINES SEE BELOW Normal [facility] Comment on above: Result Comment: JUSTYN RED INR: 2.0 - 3.0 CONDITIONS NOT LISTED BELOW 2.5 - 3.5 FOR PROSTHETIC HEART VALVE REPLACEMENT 2.5 - 3.5 RECURRENT THROMBOSIS Performed By: #### MILTON BENOIT #### [facility] [address] [place] [address] Dr. Manfred Brooks PT Coag (PPP) [Time] 11.6 s Normal 9.0-11.6 [facility] Comment on above: Performed By: #### MILTON BENOIT #### [facility] [address] [place] [address] Dr. Manfred Brooks PTTon 05-16-2022 aPTT Coag (Bld) [Time] 28.1 s Normal 22.3-36.2 [facility] Comment on above: Performed By: #### MILTON BENOIT #### [facility] [address] [place] [address] Dr. Manfred Brooks TSHon 05-16-2022 TSH 0.320 uIU/mL Critically low 0.358-3.740 [facility] Comment on above: Performed By: #### B JAMILAH DARNELL CK #### [facility] [address] [place] [address] Dr. Manfred Brooks URINE MICROSCOPIC ONLYon BACTERIA TRACE Abnormal NONE SEEN [facility] Comment on above: Performed By: #### MILTON BENOIT #### [facility] [address] [place] [address] Dr. Manfred Brooks Bacteria identified Cx Nom (U) INDICATED Normal [facility] Comment on above: Performed By: #### Nikolas HOGAN UMICRO #### [facility] [address] [place] [address] Dr. Manfred Brooks CAST NONE SEEN Normal NONE SEEN [facility] Comment on above: Performed By: #### E SAMIRA UMICRO #### [facility] [address] [place] [address] Dr. Manfred Brooks Crystals LM Nom (Urine sed) NONE SEEN Normal NONE SEEN [facility] Comment on above: Performed By: #### Nikolas HOGAN UMICRO #### [facility] [address] [place] [address] Dr. Manfred Brooks Epithelial cells LM Ql (Urine sed) MODERATE Abnormal NONE SEEN /RARE [facility] Comment on above: Performed By: #### Nikolas HOGAN UMICRO #### [facility] [address] [place] [address] Dr. Manfred Brooks MUCOUS NONE SEEN Normal NONE SEEN [facility] Comment on above: Performed By: #### Nikolas HOGAN UMICRO #### [facility] [address] [place] [address] Dr. Manfred Brooks RBC NONE SEEN Abnormal 0-2 [facility] Comment on above: Performed By: #### Nikolas HOGAN UMICRO #### [facility] [address] [place] [address] Dr. Manfred Brooks WBC 10-20 Abnormal NONE SEEN [facility] Comment on above: Performed By: #### Nikolas HOGAN UMICRO #### [facility] [address] [place] [address] Dr. Manfred Brooks XR CHEST 1 Von [...] Date: 2022-05-16 12:58 Normal [facility] T3, TOTAL (TRIIODOTHYRONINE) on 04-22-2022 T3, TOTAL 85 ng/dL Normal 71-180 [facility] Comment on above: Performed By: #### C VDTBH #### [facility] [address] [place] [address] Dr. Manfred Brooks BNPon 04-21-2022 Natriuretic peptide B (Bld) [Mass/Vol] 486.0 pg/mL Normal <=1,800.0 [facility] Comment on above: Performed By: #### B SCREW MACHINE OPERATOR SWISS TYPE, CMP #### [facility] [address] [place] [address] Dr. Manfred Brooks CBC AUTO DIFFon 04-21-2022 BASO # 0.1 103/ul Normal 0.0-0.1 [facility] Comment on above: Performed By: #### SUBHASH BENOITICRO #### [facility] [address] [place] [address] Dr. Manfred Brooks Basophils/100 WBC (Bld) 1.0 % Normal 0.2-2.0 [facility] Comment on above: Performed By: #### Nikolas HOGAN UMICRO #### [facility] [address] [place] [address] Dr. Manfred Brooks EO # 0.2 103/ul Normal 0.0-0.7 [facility] Comment on above: Performed By: #### Nikolas HOGAN UMICRO #### [facility] [address] [place] [address] Dr. Manfred Brooks Eosinophils/100 WBC (Bld) 2.7 % Normal 0.9-7.0 [facility] Comment on above: Performed By: #### Nikolas HOGAN UMICRO #### [facility] [address] [place] [address] Dr. Manfred Brooks Erythrocyte distribution width (RBC) [Ratio] 14.2 % Normal 11.0-15.0 [facility] Comment on above: Performed By: #### MILTON BENOIT #### [facility] [address] [place] [address] Dr. Manfred Brooks Hematocrit (Bld) [Volume fraction] 38.7 % Normal 36.0-48.0 [facility] Comment on above: Performed By: #### MILTON BENOIT #### [facility] [address] [place] [address] Dr. Manfred Brooks Hemoglobin (Bld) [Mass/Vol] 12.1 g/dL Normal 12.0-16.0 [facility] Comment on above: Performed By: #### MILTON BENOIT #### [facility] [address] [place] [address] Dr. Manfred Brooks IG # 0.02 10e3/ul Normal 0.00-0.03 [facility] Comment on above: Performed By: #### MILTON BENOIT #### [facility] [address] [place] [address] Dr. Manfred Brooks IG % 0.3 % Normal 0.0-0.5 [facility] Comment on above: Performed By: #### MILTON BENOIT #### [facility] [address] [place] [address] Dr. Manfred Brooks LYMPH # 2.6 103/ul Normal 1.2-3.8 [facility] Comment on above: Performed By: #### MILTON BENOIT #### [facility] [address] [place] [address] Dr. Manfred Brooks Lymphocytes/100 WBC (Bld) 36.7 % Normal 20.5-60.0 [facility] Comment on above: Performed By: #### MILTON BENOIT #### [facility] [address] [place] [address] Dr. Manfred Brooks MANUAL DIFF REQ NO Normal [facility] Comment on above: Performed By: #### ANU BENOITRO #### [facility] [address] [place] [address] Dr. Manfred Brooks MCH (RBC) [Entitic mass] 29.2 pg Normal 26.7-34.0 [facility] Comment on above: Performed By: #### Nikolas HOGAN, UMICRO #### [facility] [address] [place] [address] Dr. Manfred Brooks MCHC (RBC) [Mass/Vol] 31.3 g/dL Normal 29.9-35.2 [facility] Comment on above: Performed By: #### E JAMILAR, UMICRO #### [facility] [address] [place] [address] Dr. Manfred Brooks MCV (RBC) [Entitic vol] 93.5 fL Normal 81.0-99.0 [facility] Comment on above: Performed By: #### Nikolas HOGAN, UMICRO #### [facility] [address] [place] [address] Dr. Manfred Brooks MONO # 0.7 103/ul Normal 0.3-0.8 [facility] Comment on above: Performed By: #### Nikolas HOGAN, UMICRO #### [facility] [address] [place] [address] Dr. Manfred Brooks Monocytes/100 WBC (Bld) 9.5 % Normal 1.7-12.0 [facility] Comment on above: Performed By: #### Nikolas HOGAN, UMICRO #### [facility] [address] [place] [address] Dr. Manfred Brooks NEUT # 3.5 103/ul Normal 1.4-6.5 [facility] Comment on above: Performed By: #### E SAMIRA, UMICRO #### [facility] [address] [place] [address] Dr. Manfred Brooks Neutrophils/100 WBC (Bld) 49.8 % Normal 43.0-75.0 [facility] Comment on above: Performed By: #### Nikolas HOGAN, UMICRO #### [facility] [address] [place] [address] Dr. Manfred Brooks Platelet mean volume (Bld) [Entitic vol] 10.5 fL Normal 9.5-13.5 [facility] Comment on above: Performed By: #### Nikolas HOGAN UMICRO #### [facility] [address] [place] [address] Dr. Manfred Brooks PLT 286 103/ul Normal 150-450 [facility] Comment on above: Performed By: #### E RUAlin UMICRO #### [facility] [address] [address] [address] Manfred Brooks RBC 4.14 106/ul Critically low 4.20-5.40 [facility] Comment on above: Performed By: #### Nikolas HOGAN UMICRO #### [facility] [address] [place] [address] Dr. Manfred Brooks WBC 7.0 103/ul Normal 4.0-11.0 [facility] Comment on above: Performed By: #### Nikolas HOGAN UMICRO #### [facility] [address] [place] [address] Dr. Manfred Brooks DIGOXINon 04-21-2022 DIG <0.2 Critically low 0.9-2.0 [facility] Comment on above: Performed By: #### B MP, HSTROPN, CK #### [facility] [address] [place] [address] Dr. Manfred Brooks ECHOCARDIO M/2D COMPLETEon 0 04-21-2022 ECHOCARDIO M/2D COMPLETE Patient: BETTY CAMARENA Exam Date: 04/21/2022 : 1940 Gender:F Ordering : DR CAM BATES . Admission #: [id number] Family : DR GLORIA SALCEDO . Order #: [id number] CLICK HERE TO VIEW EXAM ECHOCARDIOGRAM REPORT [...] Alejandre M.D. on 04/21/2022 at 19:20 Normal [facility] PROF 14(COMP METB)on 022 Albumin [Mass/Vol] 3.4 g/dL Normal 3.4-5.0 [facility] Comment on above: Performed By: #### B SCREW MACHINE OPERATOR SWISS TYPE, CMP #### [facility] [address] [place] [address] Dr. Manfred Brooks Albumin/Globulin [Mass ratio] 1.2 {ratio} Normal [facility] Comment on above: Performed By: #### B SCREW MACHINE OPERATOR SWISS TYPE, CMP #### [facility] [address] [address] [address] Manfred Brooks ALP [Catalytic activity/Vol] 62 U/L Normal 46-116 [facility] [facility] Comment [facility] above: Performed By: #### B SCREW MACHINE OPERATOR SWISS TYPE, CMP #### [facility] [address] [address] [address] Manfred Brooks ALT [Catalytic activity/Vol] 24 U/L Normal 14-59 [facility] Comment on above: Performed By: #### B SCREW MACHINE OPERATOR SWISS TYPE, CMP #### [facility] [address] [address] [address] Manfred Brooks Anion gap [Moles/Vol] 10.4 mmol/L Normal [facility] Comment on above: Performed By: #### B SCREW MACHINE OPERATOR SWISS TYPE, CMP #### [facility] [address] [address] [address] Manfred Brooks AST [Catalytic activity/Vol] 9 U/L Critically low 15-37 [facility] Comment on above: Performed By: #### B SCREW MACHINE OPERATOR SWISS TYPE, CMP #### [facility] [address] [place] [address] Dr. Manfred Brooks Bilirubin [Mass/Vol] 0.3 mg/dL Normal 0.2-1.0 [facility] Comment on above: Performed By: #### B SCREW MACHINE OPERATOR SWISS TYPE, CMP #### [facility] [address] [place] [address] Dr. Manfred Brooks Calcium [Mass/Vol] 8.5 mg/dL Normal 8.5-10.1 [facility] Comment on above: Performed By: #### B SCREW MACHINE OPERATOR SWISS TYPE, CMP #### [facility] [address] [place] [address] Dr. Manfred Brooks Chloride [Moles/Vol] 109 mmol/L Critically high 98-107 [facility] Comment on above: Performed By: #### B SCREW MACHINE OPERATOR SWISS TYPE, CMP #### [facility] [address] [place] [address] Dr. Manfred Brooks CO2 [Moles/Vol] 28.5 mmol/L Normal 21.0-32.0 [facility] Comment on above: Performed By: #### B SCREW MACHINE OPERATOR SWISS TYPE, CMP #### [facility] [address] [place] [address] Dr. Manfred Brooks Creatinine [Mass/Vol] 0.83 mg/dL Normal 0.55-1.02 [facility] Comment on above: Performed By: #### B SCREW MACHINE OPERATOR SWISS TYPE, CMP #### [facility] [address] [place] [address] Dr. Manfred Brooks EGFR-AF MALAWIAN >60 Normal >=60 [facility] Comment on above: Performed By: #### B SCREW MACHINE OPERATOR SWISS TYPE, CMP #### [facility] [address] [address] [address] Manfred Brooks EGFR-NON AF MALAWIAN >60 Normal >=60 [facility] Comment on above: Performed By: #### B SCREW MACHINE OPERATOR SWISS TYPE, CMP #### [facility] [address] [address] [address] Manfred Brooks Globulin (S) [Mass/Vol] 2.8 g/dL Normal [facility] Comment on above: Performed By: #### B SCREW MACHINE OPERATOR SWISS TYPE, CMP #### [facility] [address] [address] [address] Manfred Brooks Glucose [Mass/Vol] 107 mg/dL Critically high 74-106 [facility] Comment on above: Performed By: #### B SCREW MACHINE OPERATOR SWISS TYPE, CMP #### [facility] [address] [place] [address] Dr. Manfred Brooks Potassium [Moles/Vol] 3.9 mmol/L Normal 3.5-5.1 [facility] Comment on above: Performed By: #### B SCREW MACHINE OPERATOR SWISS TYPE, CMP #### [facility] [address] [address] [address] Manfred Brooks Protein [Mass/Vol] 6.2 g/dL Critically low 6.4-8.2 [facility] Comment on above: Performed By: #### B SCREW MACHINE OPERATOR SWISS TYPE, CMP #### [facility] [address] [address] [address] Manfred Brooks Sodium [Moles/Vol] 144 mmol/L Normal 136-145 [facility] Comment on above: Performed By: #### B SCREW MACHINE OPERATOR SWISS TYPE, CMP #### [facility] [address] [address] [address] Manfred Brooks Urea nitrogen [Mass/Vol] 23.0 mg/dL Critically high 7.0-18.0 [facility] Comment on above: Performed By: #### B SCREW MACHINE OPERATOR SWISS TYPE, CMP #### [facility] [address] [address] [address] Manfred Brooks Urea nitrogen/Creatinine [Mass ratio] 27.7 mg/mg Normal [facility] Comment on above: Performed By: #### B SCREW MACHINE OPERATOR SWISS TYPE, CMP #### [facility] [address] [place] [address] Dr. Manfred Brooks BNPon 04-20-2022 Natriuretic peptide B (Bld) [Mass/Vol] 199.0 pg/mL Normal <=1,800.0 [facility] Comment on above: Performed By: #### Nikolas HOGAN UMICRO #### [facility] [address] [place] [address] Dr. Manfred Brooks CARDIAC TELMA 3-6on 2 CK [Catalytic activity/Vol] 55 U/L Normal 26-192 [facility] Comment on above: Performed By: #### ANU BENOITRO #### [facility] [address] [place] [address] Dr. Manfred Brooks CK.MB [Mass/Vol] 1.69 ng/mL Normal <=3.60 [facility] Comment on above: Performed By: #### Nikolas HOGAN UMАЛЕКСАНДРRO #### [facility] [address] [place] [address] Dr. Manfred CLIFFORDTROP 37.5 pg/mL Normal 4.0-51.3 [facility] Comment on above: Result Comment: CUT- OFF POINTS HAVE BEEN ESTABLISHED BASED ON THE FOURTH UNIVERSAL DEFINITIONS OF MYOCARDIAL INFARCTION. THE UPPER REFERENCE LIMIT (URL) OF TROPONIN, DEFINED THE 99TH PERCENTILE OF cTnI DISTRIBUTION IN A REFERENCE POPULATION, HAS BEEN CONFIRMED THE DECISION THRESHOLD FOR CT DIAGNOSIS. Performed By: #### ANU BENOITRO #### [facility] [address] [place] [address] Dr. Manfred Brooks CK [Catalytic activity/Vol] 54 U/L Normal 26-192 [facility] Comment on above: Performed By: #### Nikolas HOGAN UMICRO #### [facility] [address] [place] [address] Dr. Manfred Brooks CK.MB [Mass/Vol] 1.12 ng/mL Normal <=3.60 [facility] Comment on above: Performed By: #### Nikolas HOGAN UMICRO #### [facility] [address] [place] [address] Dr. Manfred Brooks HSTROP 27.5 pg/mL Normal 4.0-51.3 [facility] Comment on above: Result Comment: CUT- OFF POINTS HAVE BEEN ESTABLISHED BASED ON THE FOURTH UNIVERSAL DEFINITIONS OF MYOCARDIAL INFARCTION. THE UPPER REFERENCE LIMIT (URL) OF TROPONIN, DEFINED THE 99TH PERCENTILE OF cTnI DISTRIBUTION IN A REFERENCE POPULATION, HAS BEEN CONFIRMED THE DECISION THRESHOLD FOR CT DIAGNOSIS. Performed By: #### MILTON BENOIT #### [facility] [address] [place] [address] Dr. Manfred Brooks CARDIAC TELMA ADMITon 022 CK [Catalytic activity/Vol] 64 U/L Normal 26-192 [facility] Comment on above: Performed By: #### MILTON BENOIT #### [facility] [address] [place] [address] Dr. Manfred Brooks CK.MB [Mass/Vol] 1.12 ng/mL Normal <=3.60 [facility] Comment on above: Performed By: #### MILTON BENOIT #### [facility] [address] [place] [address] Dr. Manfred Brooks HSTROP 13.4 pg/mL Normal 4.0-51.3 [facility] Comment on above: Result Comment: CUT- OFF POINTS HAVE BEEN ESTABLISHED BASED ON THE FOURTH UNIVERSAL DEFINITIONS OF MYOCARDIAL INFARCTION. THE UPPER REFERENCE LIMIT (URL) OF TROPONIN, DEFINED THE 99TH PERCENTILE OF cTnI DISTRIBUTION IN A REFERENCE POPULATION, HAS BEEN CONFIRMED THE DECISION THRESHOLD FOR CT DIAGNOSIS. Performed By: #### MILTON BENOIT #### [facility] [address] [place] [address] Dr. Manfred Brooks MAHOGANY 38 ng/mL Normal 9-82 [facility] Comment on above: Performed By: #### MILTON BENOIT #### [facility] [address] [place] [address] Dr. Manfred Brooks CBC AUTO DIFFon 04-20-2022 BASO # 0.1 103/ul Normal 0.0-0.1 [facility] Comment on above: Performed By: #### MILTON BENOIT #### [facility] [address] [place] [address] Dr. Manfred Brooks Basophils/100 WBC (Bld) 1.0 % Normal 0.2-2.0 [facility] Comment on above: Performed By: #### SUBHASH BENOITICRO #### [facility] [address] [place] [address] Dr. Manfred Brooks EO # 0.2 103/ul Normal 0.0-0.7 [facility] Comment on above: Performed By: #### Nikolas HOGAN UMICRO #### [facility] [address] [place] [address] Dr. Manferd Brooks Eosinophils/100 WBC (Bld) 1.8 % Normal 0.9-7.0 [facility] Comment on above: Performed By: #### Nkiolas HOGAN UMICRO #### [facility] [address] [place] [address] Dr. Manfred Brooks Erythrocyte distribution width (RBC) [Ratio] 14.2 % Normal 11.0-15.0 [facility] Comment on above: Performed By: #### SUBHASH BENOITICRO #### [facility] [address] [place] [address] Dr. Manfred Brooks Hematocrit (Bld) [Volume fraction] 43.5 % Normal 36.0-48.0 [facility] Comment on above: Performed By: #### Nikolas HOGAN UMICRO #### [facility] [address] [place] [address] Dr. Manfred Brooks Hemoglobin (Bld) [Mass/Vol] 13.9 g/dL Normal 12.0-16.0 [facility] Comment on above: Performed By: #### Nikolas HOGAN UMICRO #### [facility] [address] [place] [address] Dr. Manfred Brooks IG # 0.03 10e3/ul Normal 0.00-0.03 [facility] Comment on above: Performed By: #### Nikolas HOGAN UMICRO #### [facility] [address] [place] [address] Dr. Manfred Brooks IG % 0.3 % Normal 0.0-0.5 [facility] Comment on above: Performed By: #### ANU BENOITRO #### [facility] [address] [place] [address] Dr. Manfred Brooks LYMPH # 2.6 103/ul Normal 1.2-3.8 [facility] Comment on above: Performed By: #### ANU BENOITRO #### [facility] [address] [place] [address] Dr. Manfred Brooks Lymphocytes/100 WBC (Bld) 29.8 % Normal 20.5-60.0 [facility] Comment on above: Performed By: #### ANU BENOITRO #### [facility] [address] [place] [address] Dr. Manfred Brooks MANUAL DIFF REQ NO Normal [facility] Comment on above: Performed By: #### ANU BENOITRO #### [facility] [address] [place] [address] Dr. Manfred Brooks MCH (RBC) [Entitic mass] 29.7 pg Normal 26.7-34.0 [facility] Comment on above: Performed By: #### ANU BENOITRO #### [facility] [address] [place] [address] Dr. Manfred Brooks MCHC (RBC) [Mass/Vol] 32.0 g/dL Normal 29.9-35.2 [facility] Comment on above: Performed By: #### ANU BENOITRO #### [facility] [address] [place] [address] Dr. Manfred Brooks MCV (RBC) [Entitic vol] 92.9 fL Normal 81.0-99.0 [facility] Comment on above: Performed By: #### ANU BENOITRO #### [facility] [address] [place] [address] Dr. Manfred Brooks MONO # 0.8 103/ul Normal 0.3-0.8 [facility] Comment on above: Performed By: #### ANU BENOITRO #### [facility] [address] [place] [address] Dr. Manfred Brooks Monocytes/100 WBC (Bld) 9.6 % Normal 1.7-12.0 [facility] Comment on above: Performed By: #### SUBHASH BENOITICRO #### [facility] [address] [place] [address] Dr. Manfred Brooks NEUT # 5.0 103/ul Normal 1.4-6.5 [facility] Comment on above: Performed By: #### SUBHASH BENOITICRO #### [facility] [address] [place] [address] Dr. Manfred Brooks Neutrophils/100 WBC (Bld) 57.5 % Normal 43.0-75.0 [facility] Comment on above: Performed By: #### Nikolas HOGAN UMICRO #### [facility] [address] [place] [address] Dr. Manfred Brooks Platelet mean volume (Bld) [Entitic vol] 10.1 fL Normal 9.5-13.5 [facility] Comment on above: Performed By: #### Nikolas HOGAN UMICRO #### [facility] [address] [place] [address] Dr. Manfred Brooks PLT 354 103/ul Normal 150-450 [facility] Comment on above: Performed By: #### Nikolas HOGAN UMICRO #### [facility] [address] [place] [address] Dr. Manfred Brooks RBC 4.68 106/ul Normal 4.20-5.40 [facility] Comment on above: Performed By: #### Nikolas HOGAN UMICRO #### [facility] [address] [place] [address] Dr. Manfred Brooks WBC 8.8 103/ul Normal 4.0-11.0 [facility] Comment on above: Performed By: #### Nikolas HOGAN UMICRO #### [facility] [address] [place] [address] Dr. Manfred Brooks CULTURE URINEon 04-20-2022 CULTURE URINE Culture Observations : LIGHT GROWTH OF MIXED GENITAL BETO. NO POTENTIAL PATHOGENS SEEN. Normal [facility] Comment on above: Performed By: #### B JAMILAH DARNELL, CK #### [facility] [address] [address] [address] Manfred Brooks Covid-19 PCR ([facility])on 04-11 SARS-CoV-2 (COVID-19) RNA DAMIR+probe Ql (Unsp spec) Not detected Normal NOT DETECTED [facility] Comment on above: Result Comment: When [...] for this test is supported by the [employer]'s declaration that [...] used). Performed By: #### B JAMILAH DARNELL, CK #### [facility] [address] [address] [address] Manfred Brooks D-DIMERon 04-20-2022 D-DIMER 0.35 mg/L FEU Normal <=0.59 [facility] Comment on above: Performed By: #### E MILTON HOGAN #### [facility] [address] [address] [address] Manfred Brooks D-DIMER COMMENTS SEE BELOW Normal [facility] Comment on above: Result Comment: Incr [...] stress, and generalized hospitalization. Performed By: #### ANU BENOITRO #### [facility] [address] [place] [address] Dr. Manfred Brooks PROF CHEM 8 (BAS METB)on Anion gap [Moles/Vol] 14.1 mmol/L Normal [facility] Comment on above: Performed By: #### Nikolas HOGAN UMICRO #### [facility] [address] [place] [address] Dr. Manfred Brooks Calcium [Mass/Vol] 9.3 mg/dL Normal 8.5-10.1 [facility] Comment on above: Performed By: #### Nikolas HOGAN UMICRO #### [facility] [address] [place] [address] Dr. Manfred Brooks Chloride [Moles/Vol] 107 mmol/L Normal 98-107 [facility] Comment on above: Performed By: #### Nikolas HOGAN UMICRO #### [facility] [address] [place] [address] Dr. Manfred Brooks CO2 [Moles/Vol] 27.8 mmol/L Normal 21.0-32.0 [facility] Comment on above: Performed By: #### Nikolas HOGAN UMICRO #### [facility] [address] [place] [address] Dr. Manfred Brooks Creatinine [Mass/Vol] 0.89 mg/dL Normal 0.55-1.02 [facility] Comment on above: Performed By: #### Nikolas HOGAN UMICRO #### [facility] [address] [place] [address] Dr. Manfred Brooks EGFR-AF MALAWIAN >60 Normal >=60 [facility] Comment on above: Performed By: #### Nikolas HOGAN UMICRO #### [facility] [address] [place] [address] Dr. Manfred Brooks EGFR-NON AF MALAWIAN >60 Normal >=60 [facility] Comment on above: Performed By: #### Nikolas HOGAN UMICRO #### [facility] [address] [place] [address] Dr. Manfred Brooks Glucose [Mass/Vol] 129 mg/dL Critically high 74-106 [facility] Comment on above: Performed By: #### Nikolas HOGAN UMICRO #### [facility] [address] [place] [address] Dr. Manfred Brooks Potassium [Moles/Vol] 3.9 mmol/L Normal 3.5-5.1 [facility] Comment on above: Performed By: #### Nikolas HOGAN UMICRO #### [facility] [address] [place] [address] Dr. Manfred Brooks Sodium [Moles/Vol] 145 mmol/L Normal 136-145 [facility] Comment on above: Performed By: #### Nikolas HOGAN UMICRO #### [facility] [address] [place] [address] Dr. Manfred Brooks Urea nitrogen [Mass/Vol] 28.0 mg/dL Critically high 7.0-18.0 [facility] Comment on above: Performed By: #### Nikolas HOGAN UMICRO #### [facility] [address] [place] [address] Dr. Manfred Brooks Urea nitrogen/Creatinine [Mass ratio] 31.5 mg/mg Normal [facility] Comment on above: Performed By: #### Nikolas HOGAN UMICRO #### [facility] [address] [place] [address] Dr. Manfred Brooks T4on 04-20-2022 T4 [Mass/Vol] 8.10 ug/dL Normal 4.80-13.90 [facility] Comment on above: Performed By: #### B SCREW MACHINE OPERATOR SWISS TYPE, CMP #### [facility] [address] [place] [address] Dr. Manfred Brooks TSHon 04-20-2022 TSH 0.918 uIU/mL Normal 0.358-3.740 [facility] Comment on above: Performed By: #### B SCREW MACHINE OPERATOR SWISS TYPE, CMP #### [facility] [address] [place] [address] Dr. Manfred Brooks UA RANDOM W/MICROSCOPICon BACTERIA TRACE Abnormal NONE SEEN [facility] Comment on above: Performed By: #### C VDTBH #### [facility] [address] [place] [address] Dr. Manfred Brooks Bilirubin Ql (U) Negative Normal NEGATIVE [facility] Comment on above: Performed By: #### C VDTBH #### [facility] [address] [place] [address] Dr. Manfred Brooks CAST SEEN Abnormal NONE SEEN [facility] Comment on above: Performed By: #### C VDTBH #### [facility] [address] [place] [address] Dr. Manfred Brooks Clarity (U) CLEAR Normal CLEAR [facility] Comment on above: Performed By: #### C VDTBH #### [facility] [address] [place] [address] Dr. Manfred Brooks Color (U) LT. YELLOW Normal YELLOW [facility] Comment on above: Performed By: #### C VDTBH #### [facility] [address] [place] [address] Dr. Manfred Brooks Crystals LM Nom (Urine sed) NONE SEEN Normal NONE SEEN [facility] Comment on above: Performed By: #### C VDTBH #### [facility] [address] [place] [address] Dr. Manfred Brooks Epithelial cells LM Ql (Urine sed) MODERATE Abnormal NONE SEEN /RARE [facility] Comment on above: Performed By: #### C VDTBH #### [facility] [address] [place] [address] Dr. Manfred Brooks Glucose Ql (U) Negative Normal NEGATIVE The [facility] Comment on above: Performed By: #### C VDTBH #### [facility] [address] [place] [address] Dr. Manfred Brooks Hemoglobin Ql (U) Negative Normal NEGATIVE [facility] Comment on above: Performed By: #### C VDTBH #### [facility] [address] [place] [address] Dr. Manfred Brooks HYALINE CAST RARE Normal [facility] Comment on above: Performed By: #### C VDTBH #### [facility] [address] [place] [address] Dr. Manfred Brooks Ketones Ql (U) Negative Normal NEGATIVE [facility] Comment on above: Performed By: #### C VDTBH #### [facility] [address] [place] [address] Dr. Manfred Brooks LEUKOCYTES TRACE Abnormal NEGATIVE [facility] Comment on above: Performed By: #### C VDTBH #### [facility] [address] [place] [address] Dr. Manfred Brooks MUCOUS TRACE Abnormal NONE SEEN [facility] Comment on above: Performed By: #### C VDTBH #### [facility] [address] [place] [address] Dr. Manfred Brooks Nitrite Ql (U) Negative Normal NEGATIVE [facility] Comment on above: Performed By: #### C VDTBH #### [facility] [address] [place] [address] Dr. Manfred Brooks pH (U) 5.0 [pH] Normal 5-9 [facility] Comment on above: Performed By: #### C VDTBH #### [facility] [address] [place] [address] Dr. Manfred Brooks RBC NONE SEEN Abnormal 0-2 [facility] Comment on above: Performed By: #### C VDTBH #### [facility] [address] [place] [address] Dr. Manfred Brooks SPEC GRAVITY >=1.030 Abnormal 1.005-<=1.025 [facility] Comment on above: Performed By: #### C VDTBH #### [facility] [address] [place] [address] Dr. Manfred Brooks UA PROTEIN Negative Normal NEGATIVE/ TRACE [facility] Comment on above: Performed By: #### C VDTBH #### [facility] [address] [place] [address] Dr. Manfred Brooks Urobilinogen Qn (U) 0.2 {Antionette'U}/dL Normal 0.2 - 1. 0 [facility] Comment on above: Performed By: #### C VDTBH #### [facility] [address] [place] [address] Dr. Manfred Brooks WBC 2-5 Abnormal NONE SEEN [facility] Comment on above: Performed By: #### C VDTBH #### [facility] [address] [place] [address] Dr. Manfred Brooks XR CHEST 1 Von [...] Date: 2022-04-20 07:57 Normal [facility] INSULINon 02-05-2022 Insulin 21.9 uIU/mL Normal 2.6-24.9 [facility] Comment on above: Performed By: #### C VDTBH #### [facility] [address] [place] [address] Dr. Manfred Brooks BNPon 02-04-2022 Natriuretic peptide B (Bld) [Mass/Vol] 197.0 pg/mL Normal <=1,800.0 [facility] Comment on above: Performed By: #### MILTON BENOIT #### [facility] [address] [place] [address] Dr. Manfred Brooks CBC AUTO DIFFon 02-04-2022 BASO # 0.1 103/ul Normal 0.0-0.1 [facility] Comment on above: Performed By: #### C BC #### [facility] [address] [place] [address] Dr. Manfred Brooks Basophils/100 WBC (Bld) 1.2 % Normal 0.2-2.0 [facility] Comment on above: Performed By: #### C BC #### [facility] [address] [place] [address] Dr. Manfred Brooks EO # 0.1 103/ul Normal 0.0-0.7 [facility] Comment on above: Performed By: #### C BC #### [facility] [address] [place] [address] Dr. Manfred Brooks Eosinophils/100 WBC (Bld) 2.1 % Normal 0.9-7.0 [facility] Comment on above: Performed By: #### C BC #### [facility] [address] [place] [address] Dr. Manfred Brooks Erythrocyte distribution width (RBC) [Ratio] 14.5 % Normal 11.0-15.0 [facility] Comment on above: Performed By: #### C BC #### [facility] [address] [place] [address] Dr. Manfred Brooks Hematocrit (Bld) [Volume fraction] 42.4 % Normal 36.0-48.0 [facility] Comment on above: Performed By: #### C BC #### [facility] [address] [place] [address] Dr. Manfred Brooks Hemoglobin (Bld) [Mass/Vol] 13.4 g/dL Normal 12.0-16.0 [facility] Comment on above: Performed By: #### C BC #### [facility] [address] [place] [address] Dr. Manfred Brooks IG # 0.02 10e3/ul Normal 0.00-0.03 [facility] Comment on above: Performed By: #### C BC #### [facility] [address] [place] [address] Dr. Manfred Broosk IG % 0.3 % Normal 0.0-0.5 [facility] Comment on above: Performed By: #### C BC #### [facility] [address] [place] [address] Dr. Manfred Brooks LYMPH # 2.2 103/ul Normal 1.2-3.8 [facility] Comment on above: Performed By: #### C BC #### [facility] [address] [place] [address] Dr. Manfred Brooks Lymphocytes/100 WBC (Bld) 35.6 % Normal 20.5-60.0 [facility] Comment on above: Performed By: #### C BC #### [facility] [address] [place] [address] Dr. Manfred Brooks MANUAL DIFF REQ NO Normal [facility] Comment on above: Performed By: #### C BC #### [facility] [address] [place] [address] Dr. Manfred Brooks MCH (RBC) [Entitic mass] 29.6 pg Normal 26.7-34.0 [facility] Comment on above: Performed By: #### C BC #### [facility] [address] [place] [address] Dr. Manfred Brooks MCHC (RBC) [Mass/Vol] 31.6 g/dL Normal 29.9-35.2 [facility] Comment on above: Performed By: #### C BC #### [facility] [address] [place] [address] Dr. Manfred Brooks MCV (RBC) [Entitic vol] 93.8 fL Normal 81.0-99.0 [facility] Comment on above: Performed By: #### C BC #### [facility] [address] [place] [address] Dr. Manfred Brooks MONO # 0.6 103/ul Normal 0.3-0.8 [facility] Comment on above: Performed By: #### C BC #### [facility] [address] [place] [address] Dr. Manfred Brooks Monocytes/100 WBC (Bld) 10.4 % Normal 1.7-12.0 [facility] Comment on above: Performed By: #### C BC #### [facility] [address] [place] [address] Dr. Manfred Brooks NEUT # 3.1 103/ul Normal 1.4-6.5 [facility] Comment on above: Performed By: #### C BC #### [facility] [address] [place] [address] Dr. Manfred Brooks Neutrophils/100 WBC (Bld) 50.4 % Normal 43.0-75.0 [facility] Comment on above: Performed By: #### C BC #### [facility] [address] [address] [address] Manfred Brooks Platelet mean volume (Bld) [Entitic vol] 10.1 fL Normal 9.5-13.5 [facility] Comment on above: Performed By: #### C BC #### [facility] [address] [address] [address] Manfred Brooks PLT 310 103/ul Normal 150-450 [facility] Comment on above: Performed By: #### C BC #### [facility] [address] [address] [address] Manfred Brooks RBC 4.52 106/ul Normal 4.20-5.40 [facility] Comment on above: Performed By: #### C BC #### [facility] [address] [address] [address] Manfred Brooks WBC 6.1 103/ul Normal 4.0-11.0 [facility] Comment on above: Performed By: #### C BC #### [facility] [address] [address] [address] Manfred Brooks FREE THYROXINE INDEX T7on FTI 2.16 Normal [facility] Comment on above: Performed By: #### B MP HSTROPN, CK #### [facility] [address] [address] [address] Manfred Brooks T3U 36.0 % Normal 23.5-40.5 [facility] Comment on above: Performed By: #### B MP, HSTROPN, CK #### [facility] [address] [address] [address] Manfred Brooks T4 [Mass/Vol] 6.00 ug/dL Normal 4.80-13.90 [facility] Comment on above: Performed By: #### B MP, HSTROPN, CK #### [facility] [address] [address] [address] Manfred Brooks GLYCOHEMOGLOBIN A1Con 2021 ADA RECOMMENDATION SEE BELOW Normal [facility] Comment on above: Result Comment: ADA RECOMMENDED LIMIT 4.0 - 6.0 ADA THERAPEUTIC TARGET < 7.0 ACTION SUGGESTED > 7.0 Performed By: #### B JAMILAH DARNELL, REY #### [facility] [address] [place] [address] Dr. Manfred Brooks Glucose [Mass/Vol] 114 mg/dL Normal [facility] Comment on above: Performed By: #### B JAMILAH DARNELL, CK #### [facility] [address] [place] [address] Dr. Manfred Brooks HbA1c (Bld) [Mass fraction] 5.6 % Normal 4.5-6.2 [facility] Comment on above: Performed By: #### B JAMILAH DARNELL, CK #### [facility] [address] [place] [address] Dr. Manfred Brooks IRONon 02-04-2022 Iron [Mass/Vol] 79.0 ug/dL Normal 50.0-170.0 [facility] Comment on above: Performed By: #### MILTON BENOIT #### [facility] [address] [place] [address] Dr. Manfred Brooks LIPID PROFILEon 02-04-2022 CHOL-HDL RATIO NORM SEE BELOW Normal [facility] Comment on above: Result Comment: 3.3 - 4.4 LOW RISK 4.4 - 7.1 AVERAGE RISK 7.1 - 11.0 MODERATE RISK >11.0 HIGH RISK Performed By: #### MILTON BENOIT #### [facility] [address] [place] [address] Dr. Manfred Brooks Cholesterol [Mass/Vol] 134 mg/dL Normal <=200 [facility] Comment on above: Performed By: #### ANU BENOITRO #### [facility] [address] [place] [address] Dr. Manfred Brooks Cholesterol in HDL [Mass/Vol] 41 mg/dL Normal 40-60 [facility] Comment on above: Performed By: #### ANU BENOITRO #### [facility] [address] [address] [address] Manfred Brooks Cholesterol in LDL [Mass/Vol] 62.0 mg/dL Normal [facility] Comment on above: Performed By: #### ANU BENOITRO #### [facility] [address] [place] [address] Dr. Manfred Brooks Cholesterol.total/Ch olesterol in HDL [Mass ratio] 3.3 {ratio} Normal [facility] Comment on above: Performed By: #### ANU BENOITRO #### [facility] [address] [place] [address] Dr. Manfred Brooks HDL NORMAL > or = 60 mg/dl - LO W CARDIOVASCULAR RISK <40 mg/dl - HIGH CARDIOVASCULAR RISK Normal [facility] Comment on above: Performed By: #### ANU BENOITRO #### [facility] [address] [place] [address] Dr. Manfred Brooks LDL CALC NORMAL SEE BELOW Normal [facility] Comment on above: Result Comment: <100 mg/dl OPTIMAL 100 - 129 mg/dl NEAR OR ABOVE OPTIMAL 130 - 159 mg/dl BORDERLINE HIGH 160 - 189 mg/dl HIGH >190 mg/dl VERY HIGH Performed By: #### ANU BENOITRO #### [facility] [address] [place] [address] Dr. Manfred Brooks Triglyceride [Mass/Vol] 155 mg/dL Critically high <=150 [facility] Comment on above: Performed By: #### ANU BENOITRO #### [facility] [address] [place] [address] Dr. Manfred Brooks VLDL CALC 31.0 mg/dL Normal [facility] Comment on above: Performed By: #### ANU BENOITRO #### [facility] [address] [place] [address] Dr. Manfred Brooks PROF 14(COMP METB)on 022 Albumin [Mass/Vol] 3.9 g/dL Normal 3.4-5.0 [facility] Comment on above: Performed By: #### B MP, HSTROPN, CK #### [facility] [address] [address] [address] Manfred Brooks Albumin/Globulin [Mass ratio] 1.2 {ratio} Normal [facility] Comment on above: Performed By: #### B MP, HSTROPN, CK #### [facility] [address] [address] [address] Manfred Brooks ALP [Catalytic activity/Vol] 63 U/L Normal 46-116 [facility] Comment on above: Performed By: #### B MP, HSTROPN, CK #### [facility] [address] [address] [address] Manfred Brooks ALT [Catalytic activity/Vol] 25 U/L Normal 14-59 [facility] Comment on above: Performed By: #### B MP, HSTROPN, CK #### [facility] [address] [address] [address] Manfred Brooks Anion gap [Moles/Vol] 10.8 mmol/L Normal [facility] Comment on above: Performed By: #### B MP, HSTROPN, CK #### [facility] [address] [address] [address] Manfred Brooks AST [Catalytic activity/Vol] 14 U/L Critically low 15-37 [facility] Comment on above: Performed By: #### B MP, HSTROPN, CK #### [facility] [address] [address] [address] Manfred Brooks Bilirubin [Mass/Vol] 0.6 mg/dL Normal 0.2-1.0 [facility] Comment on above: Performed By: #### B MP, HSTROPN, CK #### [facility] [address] [address] [address] Manfred Brooks Calcium [Mass/Vol] 8.6 mg/dL Normal 8.5-10.1 [facility] Comment on above: Performed By: #### B MP, HSTROPN, CK #### [facility] [address] [address] [address] Manfred Brooks Chloride [Moles/Vol] 104 mmol/L Normal 98-107 [facility] Comment on above: Performed By: #### B MP, HSTROPN, CK #### [facility] [address] [address] [address] Manfred Brooks CO2 [Moles/Vol] 31.5 mmol/L Normal 21.0-32.0 [facility] Comment on above: Performed By: #### B MP, HSTROPN, CK #### [facility] [address] [place] [address] Dr. Manfred Brooks Creatinine [Mass/Vol] 0.67 mg/dL Normal 0.55-1.02 [facility] Comment on above: Performed By: #### B MANN HSTROPN, CK #### [facility] [address] [address] [address] Manfred Brooks EGFR-AF MALAWIAN >60 Normal >=60 [facility] Comment on above: Performed By: #### B MANN, HSTROPN, CK #### [facility] [address] [address] [address] Manfred Brooks EGFR-NON AF MALAWIAN >60 Normal >=60 [facility] Comment on above: Performed By: #### B MANN HSTROPN, CK #### [facility] [address] [place] [address] Dr. Manfred Brooks Globulin (S) [Mass/Vol] 3.2 g/dL Normal [facility] Comment on above: Performed By: #### B MP, HSTROPN, CK #### [facility] [address] [address] [address] Manfred Brooks Glucose [Mass/Vol] 102 mg/dL Normal 74-106 [facility] Comment on above: Performed By: #### B MANN, HSTROPN, CK #### [facility] [address] [address] [address] Manfred Brooks Potassium [Moles/Vol] 4.3 mmol/L Normal 3.5-5.1 [facility] Comment on above: Performed By: #### B MP, HSTROPN, CK #### [facility] [address] [place] [address] Dr. Manfred Brooks Protein [Mass/Vol] 7.1 g/dL Normal 6.1-8.2 [facility] Comment on above: Performed By: #### B MANN, HSTROPN, CK #### [facility] [address] [place] [address] Dr. Manfred Brooks Sodium [Moles/Vol] 142 mmol/L Normal 136-145 [facility] Comment on above: Performed By: #### B MP, HSTROPN, CK #### [facility] [address] [place] [address] Dr. Manfred Brooks Urea nitrogen [Mass/Vol] 19.0 mg/dL Critically high 7.0-18.0 [facility] Comment on above: Performed By: #### B MANN, HSTROPN, CK #### [facility] [address] [place] [address] Dr. Manfred Brooks Urea nitrogen/Creatinine [Mass ratio] 28.4 mg/mg Normal [facility] Comment on above: Performed By: #### B MANN, HSTROPN, CK #### [facility] [address] [place] [address] Dr. Manfred Brooks TSHon 02-04-2022 TSH 0.317 uIU/mL Critically low 0.470-4.680 [facility] Comment on above: Performed By: #### B MANN HSTROPN, CK #### [facility] [address] [place] [address] Dr. Manfred Brooks TSH RANGE SEE BELOW Normal [facility] Comment on above: Result Comment: <0.3 4 UIU/ml HYPERTHYROID 0.34-5.60 UIU/ml EUTHYROID >5.60 UIU/ml HYPOTHYROID Performed By: #### B MANN, HSTROPN, CK #### [facility] [address] [place] [address] Dr. Manfred Brooks VITAMIN D 25 OHon 02-04-2022 VIT D 25-OH 35.9 ng/mL Normal [facility] Comment on above: Performed By: #### MILTON BENOIT #### [facility] [address] [place], [place] [address] Dr. Manfred Brooks VIT D RANGES SEE BELOW Normal [facility] Comment on above: Result Comment: <20 ng/mL Vit D deficient 20 - <30 ng/mL Vit D insufficient 30 - 100 ng/mL Vit D sufficient >100 ng/mL Potential Toxicity Performed By: #### MILTON BENOIT #### [facility] [address] [place], [place] [address] Dr. Manfred Brooks Ambulatory Clinical Summaryo n 04-16-2021 Ambulatory Clinical Summary {[id number]}CD:[id number] Normal [facility] General Surgery Office/Clini c Noteon 04-16-2021 [...] Follow-up With When Contact Information IZZY REYES, Salvatore Ogden, JEM Only if needed [address] [place] [address]- Additional Instructions: Problem List/Past Medical [...] (COVID-19) mRNA BNT-162b2 vax 11/30/2020 Recorded Normal [facility] Comment on above: Result Comment: Elec tronically Signed By: IZZY ERYES, Salvatore Llanos.br\Date and Time Signed: 04/16/21 13:20 EDT Pathology Noteon 04-12-2021 Pathology Note [id number]. 00CD:127 [facility] Ambulatory Clinical Summaryo n 04-09-2021 Ambulatory Clinical Summary {[id number]}CD:[id number] [facility] March 29, 2021 Cam Bates, [address] [place] [address] Re: BETTY CAMARENA Date of : 1940 Thank you for your referral of Betty Camarena who was seen on consultation on March 21, 2021, for two moles on right cheek. An excisional biopsy is planned. I have enclosed my consultation note for your review. I will be happy to follow Betty. Sincerely, Salvatore Moore MD General Surgery [facility] Ambulatory Clinical Summaryo n 03-21-2021 Ambulatory Clinical Summary {[id number]}CD:[id number] [facility] Patient Educationon 03-21-20 21 Patient Education [...] your health care provider or diet and nutrition helper (dietitian). This may include: ? Eating fewer [...] weight koehler (more content not included)... Normal [facility] Physician Referralon 021 Physician Referral [id number] 60 [id number] 0CD:127 Normal [facility] Cardiovascular Lab Reporton 04-17-2020 Cardiovascular Lab Report [facility] Patient Name: Sarah [facility] MR #: [id number] Physician: Denisa Blanco M.D. Medicine Service Date: 04/16/2020 Division of Birthdate: 1940 Cardiology Room #: [facility] Services [address] [place] [address] Cardiovascular Laboratory Report INDICATION: The patient is [...] signed informed consent. She was brought to oil laboratory analyst in a fasting state. The left wrist area was prepped and draped in the usual fashion. Modified Raleigh's test was favorable on the left. Access in the left radial artery was obtained using micropuncture technique and ultrasound guidance. A 6-Nigerien x 11 cm Hydrophilic sheath was advanced. Verapamil was given through the sheath and heparin was administered intravenously. The JR4 diagnostic catheter was advanced over the angled Glidewire into the left ventricular cavity and used to perform left heart catheterization with measurement of pressures. Pullback across the aortic valve was performed with measurement of pressures. Bilateral selective coronary angiography was then performed using 6-Nigerien JL4 and JR4 diagnostic catheters. Catheters were [...] 40% proximal stenosis. SUMMARY OF FINDINGS: 1. Pmah-qk-lmtlxjin 2-vessel coronary artery disease with 30% mid LAD, 20% mid RCA, 40% distal RCA, 40% proximal PDA stenosis, but no occlusive disease and minimal disease in the circumflex vessel. 2. Rbtnrqfa-nq-xdzvwv elevation of LVEDP. 3. Uncontrolled systemic hypertension. [...] A Denisa Alejandre M.D. Date Dict: 04/16/2020/02:07 P/Denisa Alejandre M.D. Date Trans: 04/17/2020 09:09 A/anna [id number] cc: Cam Bates M.D. [address] [address] [place] [facility] Encounters Encounter Date Encounter Type Care Provider Facility Start: 12-26-2024 End: 12-26-2024 ambulatory DENISA ALEJANDRE [facility] Start: 01-19-2024 ambulatory [facility] Start: 01-07-2024 End: 01-07-2024 ambulatory [facility] Start: 01-19-2023 End: 01-20-2023 ambulatory LEANNA VIVAS Facility:[facility] Start: 01-09-2023 End: 01-09-[address] PERRY PAY . Facility:[facility] Start: 01-06-2023 End: 01-07-[address] CAM BATES . Facility:[facility] Start: 12-31-2022 End: 01-01-2023 ambulatory SHANEL MAST Facility:[facility] Start: 12-11-2022 End: 12-12-[address] CAM BATES . Facility:[facility] Start: 05-16-2022 End: 05-16-2022 ambulatory Johan Mckeon Facility:[facility] Start: 04-20-2022 End: 04-21-[address] GLORIA SALCEDO Facility:[facility] Start: 02-04-2022 End: 02-05-[address] CAM BATES . Facility:[facility] Start: 04-16-2020 End: 04-17-2020 Patient encounter procedure PROVIDER UNKNOWN Facility:[facility] Payers Date Payer Category Payer Medicare [id number] 1959 Private Health Insurance [facility] [id number] Private Health Insurance [id number] 1940 Unknown [id number] 2.16.8 [id number] 1940 Unknown [id number] 2.16.84 [id number] 1940 Unknown [id number] 2.16.84 [id number] 1940 Unknown [id number] 2.16.84 [id number] 1940 Unknown [id number] 2.16.84 [id number] 1940 Unknown [id number] 2.16.84 [id number] 1940 Unknown [id number] 2.16.84 [id number] 1940 Unknown [id number] 2.16.84 [id number] 1940 Unknown [id number] 2.16.84 [id number] Progress note 12-26-2024 Note Date & Type Note Facility 12-26-2024 Note [facility] - [facility] Subjective Betty Camarena is a 84 y.o. year old female patient being seen for 1 year follow up CAD, PAF, hypertension, chronic diastolic heart failure, and carotid artery stenosis. She had routine labs with lipid panel in March 2024. Patient presented to [facility] ED last month for chest pain. She says she made the mistake of lifting a heavy object. C/o more frequent episodes of palpitations, usually occurring at night when she lies down. Denies chest pain, LE edema, and bleeding on Eliquis. Says her BP at home today was 136/72. Patient Active Problem List Diagnosis Coronary artery disease involving [place] coronary artery of [place] heart without angina pectoris Chronic diastolic heart failure, NYHA class 2 (CMS/HCC) Bilateral carotid artery stenosis Benign essential HTN Dyspnea Persistent atrial fibrillation (CMS/HCC) Paroxysmal atrial fibrillation (CMS/HCC) No family history on file. Social History Tobacco Use Smoking status: Former Current packs/day: 0.00 Average packs/day: 0.5 packs/day for 40.0 years (20.0 ttl pk-yrs) Types: Cigarettes Start date: 1964 Quit date: 2004 Years since quittin.2 Smokeless tobacco: Never Substance Use Topics Alcohol use: Not Currently Comment: holiday Drug use: Never DAVE Hernández is seen in follow-up. She is a 84-year-old woman with history of coronary artery disease [mild by cardiac catheterization in 2019], not maintained on aspirin due to being on Eliquis for atrial fibrillation, history of hypertension, diastolic heart failure, paroxysmal atrial fibrillation [Status post ablation by Dr. Lucho Taylor in April 2023], and asymptomatic bilateral carotid disease. on 12/09/2024 she was evaluated in the emergency room at the [facility] with flank pain, fever and was diagnosed with musculoskeletal pain. She was given tramadol. Today she reports that her blood pressure at home has been elevated and sometimes can reach a systolic of 170. Her blood pressure is elevated in the office today. She denies chest pain prior. She does have shortness of breath on exertion and occasional palpitations. She does feel that she is happy that she had ablation performed a long time ago. No lower extremity edema. Review of Systems Cardiovascular: Positive for dyspnea on exertion (intermittent) and palpitations (increasing). Musculoskeletal: Positive for arthritis and back pain. Neurological: Positive for light-headedness. All other systems reviewed and are negative. Objective Visit Vitals BP 140/82 (BP Location: Left arm, Patient Position: Sitting) Pulse 77 Ht 1.499 m (4' 11 ) Wt 73.9 kg (163 lb) SpO2 93% BMI 32.92 kg/m??? OB Status Postmenopausal Smoking Status Former BSA 1.75 m??? Physical Exam Constitutional: Appearance: She is well-developed. She is obese. She is not ill-appearing. HENT: Head: Normocephalic and atraumatic. Nose: Nose normal. Eyes: General: No scleral icterus. Pupils: Pupils are equal, round, and reactive to light. Neck: Thyroid: No thyromegaly. Vascular: No JVD. Cardiovascular: Rate and Rhythm: Normal rate and regular rhythm. Pulses: Radial pulses are 2+ on the right side and 2+ on the left side. Heart sounds: Normal heart sounds. No murmur heard. No friction rub. No gallop. Pulmonary: Effort: Pulmonary effort is normal. No respiratory distress. Breath sounds: Normal breath sounds. No wheezing or rales. Chest: Chest wall: No tenderness. Abdominal: General: Bowel sounds are normal. There is no distension. Palpations: Abdomen is soft. Tenderness: There is no abdominal tenderness. Musculoskeletal: General: No swelling. Cervical back: Neck supple. Skin: General: Skin is warm and dry. Neurological: General: No focal deficit present. Mental Status: She is alert and oriented to person, place, and time. Psychiatric: Mood and Affect: Mood normal. Behavior: Behavior is cooperative. Judgment: Judgment normal. Allergies Allergies Allergen Reactions Digoxin Nausea Only HIVES (SMALLER) Diltiazem Hives Per patient / PCP HIVES (SMALLER) Medications Current Outpatient Medications: apixaban (Eliquis) 5 mg tablet, Eliquis 5 mg tablet TAKE 1 TABLET BY MOUTH TWICE A DAY, Disp: , Rfl: atorvastatin (Lipitor) 10 mg tablet, atorvastatin 10 mg tablet TAKE 1 TABLET BY MOUTH ONCE A DAY, Disp: , Rfl: ergocalciferol (Vitamin D-2) 1.25 MG (90014 Units) capsule, Vitamin D, Disp: , Rfl: isosorbide mononitrate ER (Imdur) 60 mg 24 hr tablet, isosorbide mononitrate ER 60 mg tablet,extended release 24 hr TAKE 1 TABLET BY MOUTH TWICE A DAY, Disp: , Rfl: levothyroxine (Synthroid, Levoxyl) 88 mcg tablet, Take 800 mcg by mouth in the morning., Disp: , Rfl: liothyronine (Cytomel) 5 mcg tablet, Take 3 tablets by mouth in the morning., Disp: , Rfl: metoprolol succinate XL (Toprol-XL) 100 mg 24 hr tablet, Take 1 tablet (100 mg) b (more content not included)... [facility] Progress note 01-19-2024 Note Date & Type Note Facility 01-19-2024 Note Cardiology Progress Note - [facility] Reason for visit: ER follow-up 01/19/2024 [...] and was recently admitted to [facility]. She converted on her own with [...] A DAY ergocalciferol (Vitamin D-2) 1.25 MG (35092 Units) capsule Vitamin D fu (more content not included)... [facility] Progress note 01-07-2024 Note Date & Type Note Facility 01-07-2024 Note Patient here for 6 m [...] All other systems reviewed and are negative. [facility] Progress note 01-07-2024 Note Date & Type Note Facility 01-07-2024 Note Cardiology Progress Note - [facility] Reason for visit: follow-up 01/07/2024 Patient [...] and was recently admitted to [facility]. She converted on her own with [...] A DAY ergocalciferol (Vitamin D-2) 1.25 MG (85800 Units) capsule Vitamin D isosorbide mononitrate ER [...] ([place]) 200 mg (more content not included)... 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 Hx of Hypertension, Diastolic heart failure, mitral [...] Directed Allergies C (more content not included)... [facility] Comment on above: Result Comment: Elec tronically Signed By: IZZY REYES, Salvatore River\Date and Time Signed: 06/12/21 10:54 EDT Summary Purpose Family History No Family History Records FoundNo Family History Records FoundNo Family History Records FoundNo Family History Records Found Advance Directives No Advanced Directives Records FoundNo Advanced Directives Records FoundNo Advanced Directives Records FoundNo Advanced Directives Records Found Additional Source Comments INFORMATION SOURCE (unrecogn ized section and content) DATE CREATED AUTHOR 05/03/2020 [facility] DATE CREATED AUTHOR AUTHOR'S ORGANIZ ATION 04/17/2021 [facility] DATE CREATED AUTHOR AUTHOR'S ORGANIZ ATION 01/25/2023 [facility] DATE CREATED AUTHOR AUTHOR'S ORGANIZ ATION 01/05/2025 [facility] FOR RECORDS PERTAINING TO PATIENTS WHO [...] BE BASED ON THE PRIMARY CLINICAL RECORDS. [facility] [employer] [facility]. provides no warranty or guarantee of the accuracy or completeness of information in this document.
[2025-01-26 03:29] LABS: Basophils Absolute Auto 0.1 10^3/uL (0.0-0.1); Basophils Percent Auto 0.8 % (0.2-2.0); Eosinophils Absolute Auto 0.1 10^3/uL (0.0-0.7); Eosinophils Percent Auto 1.7 % (0.9-7.0); Hematocrit 38.6 % (36.0-48.0); Hemoglobin 12.6 g/dL (12.0-16.0); Immature Granulocytes Abs Auto 0.01 10^3/uL (0.00-0.03); Immature Granulocytes Pct Auto 0.2 % (0.0-0.5); Lymphocytes Absolute Auto 2.5 10^3/uL (1.2-3.8); Lymphocytes Percent Auto 38.7 % (20.5-60.0); Mean Corpuscular HGB Conc 32.6 g/dL (29.9-35.2); Mean Corpuscular Hemoglobin 30.5 pg (26.7-34.0); Mean Corpuscular Volume 93.5 fL (81.0-99.0); Mean Platelet Volume 10.8 fL (9.5-13.5); Monocytes Absolute Auto 0.5 10^3/uL (0.3-0.8); Monocytes Percent Auto 8.1 % (1.7-12.0); Neutrophils Absolute Auto 3.3 10^3/uL (1.4-6.5); Neutrophils Percent Auto 50.5 % (43.0-75.0); Platelet Count 254 10^3/uL (150-450); Red Blood Count 4.13 10^6/uL (4.20-5.40); White Blood Count 6.4 10^3/uL (4.0-11.0)
[2025-01-26 03:30] LABS: Bilirubin Urine NEGATIVE (NEGATIVE); Blood Urine LARGE (NEGATIVE); Clarity Urine CLEAR (CLEAR); Color Urine LT. YELLOW (YELLOW); Glucose Urine UA NEGATIVE (NEGATIVE); Ketones Urine NEGATIVE (NEGATIVE); Leukocyte Esterase Urine NEGATIVE (NEGATIVE); Nitrite Urine NEGATIVE (NEGATIVE); Protein Urine TRACE mg/dL (NEG/TRACE); Specific Gravity Urine 1.025 (1.005-1.025); Urobilinogen Urine 0.2 EU/dL (0.2-1.0); pH Urine 5.5 (5.0-9.0)
--- NOTE | 2025-01-26 03:33 | ED.GENADUL1 ---
Documented by User: Bri Mcdonald MD 01/27/25 00:43 HPI HPI - General Adult General Chief complaint: Urogenital-Female Stated complaint: FLANK PAIN Time Seen by Provider: 01/26/25 03:08 Source: patient Mode of arrival: ambulance History of Present Illness HPI narrative: This 84-year-old female presents for evaluation of right flank pain radiating into her right lower quadrant. The patient states she went to bed around midnight and around 1230 she felt that she had to urinate. She got up to urinate and went back to bed but half an hour later felt the urge to urinate again. She is not having any dysuria or hematuria. After she had urinated several times she started to feel pain in her right flank area. It is since radiated down into the right lower quadrant of her abdomen. She denies any nausea or vomiting. She does not have a history of kidney stones. She does have a history of diverticulosis. She has not had any fevers or chills. She has a history of atrial fibrillation but had an ablation several years ago and has not had any difficulty since that time. She denies any chest pain or shortness of breath. She denies any dizziness or syncope. There is no radiation of the pain from her right flank into her left side or into her buttocks or legs. Related Data Home Medications ?Medication ?Instructions ?Recorded ?Confirmed apixaban 5 mg tablet (Eliquis) 5 mg PO Q12H 01/13/24 01/26/25 atorvastatin 10 mg tablet 10 mg PO DAILY 01/13/24 01/26/25 ergocalciferol (vitamin D2) 1,000 1,000 mcg PO DAILY 01/13/24 01/26/25 unit capsule isosorbide mononitrate 60 mg 60 mg PO BID 01/13/24 01/26/25 tablet,extended release 24 hr liothyronine 25 mcg tablet 25 mcg PO DAILY 01/13/24 01/26/25 losartan 50 mg tablet 100 mg PO DAILY 01/13/24 01/26/25 metoprolol succinate 100 mg 50 mg PO Q12H 01/13/24 01/26/25 tablet,extended release 24 hr spironolactone 25 mg tablet 25 mg PO DAILY 01/13/24 01/26/25 Previous Rx's ?Medication ?Instructions ?Recorded tramadol 50 mg tablet 50 mg PO Q8H PRN pain #14 tabs 12/09/24 Allergies Allergy/AdvReac Type Severity Reaction Status Date / Time diltiazem (From Cardizem) Allergy Hives Verified 01/26/25 03:12 digoxin AdvReac Severe Nausea Verified 01/26/25 03:12 Opioid HPI Opioid Management Most Recent Opioid Data: Last Pain Scale 8 01/26/25 05:53 01/26/25 Last MAR Pain Assessment 01/26/25 05:53 Review of Systems ROS Status of ROS 10 or more systems reviewed and unremarkable except as noted in history and below [facility] Medical History (Updated 01/26/25 @ 05:43 by Bri Mcdonald MD) Atrial fibrillation ?I48.91 - Unspecified atrial fibrillation (ICD-10) Social History Little interest or pleasure in doing things: not at all Feeling down, depressed, or hopeless: not at all Exam Narrative Exam Narrative: Vital signs and Nursing Notes reviewed: Patient is afebrile with a normal pulse, blood pressure is elevated at 188/78, she has not hypoxic with pulse ox of 95% on room air General: Awake, alert, oriented, no acute distress, lying comfortably on the stretcher HEENT: Normocephalic atraumatic, mucous membranes are moist and pink, eyes are clear, normal conjunctiva, vision is grossly intact, posterior pharynx is normal in appearance. Neck: Supple, no JVD Chest: Lungs are clear to auscultation with good air entry, there is no wheezing rhonchi or rales appreciated no accessory muscle use, patient is speaking in complete sentences-no chest wall tenderness to palpation CVS: Regular rate and rhythm S1-S2, no murmurs rubs or gallops, pulses are brisk and equal bilaterally ABD: Softly distended. No pulsatile masses appreciated, there is tenderness in the right lower quadrant and left lower quadrant to deep palpation. There is no reproducible flank tenderness or notable skin rash. Femoral pulses are brisk and equal bilaterally. Dorsalis pedis pulses are brisk and equal bilaterally. Extremities: Moving all extremities, no lower extremity tenderness or swelling noted, negative Homans' sign, pulses are brisk and equal bilaterally Skin: Normal in appearance without rash,pallor, petechiae or purpura Neuro: No focal deficits Constitutional Vital Signs, click to edit/add: Last Vital Signs Temp 97.7 F 01/26/25 03:07 Pulse 72 01/26/25 03:07 Resp 16 01/26/25 03:07 BP 142/60 H 01/26/25 06:50 Pulse Ox 95 01/26/25 03:07 O2 Del Method Room Air 01/26/25 03:07 Course Vital Signs Vital signs: Vital Signs Temperature 97.7 F 01/26/25 03:07 Pulse Rate 72 01/26/25 03:07 Respiratory Rate 16 01/26/25 03:07 Blood Pressure 188/78 H 01/26/25 03:07 Pulse Oximetry 95 01/26/25 03:07 Oxygen Delivery Method Room Air 01/26/25 03:07 Temperature 97.7 F 01/26/25 03:07 Pulse Rate 72 01/26/25 03:07 Respiratory Rate 16 01/26/25 03:07 Blood Pressure 142/60 H 01/26/25 06:50 Pulse Oximetry 95 01/26/25 03:07 Oxygen Delivery Method Room Air 01/26/25 03:07 Medical Decision Making [facility] Narrative Medical decision making narrative: This 84-year-old presents for evaluation of acute onset of right sided flank pain after several episodes of urinary frequency starting around 12:30 AM after going to bed this morning. She denies any nausea or vomiting. She does not have a history of kidney stone. She does not have any mid abdominal pain or flank pain. She has not had any dizziness or syncope. There is no radiation of her right sided pain into her buttocks or legs. She has not had any fever. She denies any chest pain or shortness of breath. Her femoral and dorsalis pedis pulses were brisk and equal bilaterally. She is on Eliquis due to a history of atrial fibrillation for which she had ablation in the past. On arrival she was quite uncomfortable and was medicated with 2 mg of morphine and Zofran as well as IV fluids. She had minimal relief of this and was given 0.5 mg of Dilaudid. Routine labs are ordered and are reviewed. She has a normal white count and hemoglobin. Electrolytes are normal. Urine is negative for infection but positive for large blood. Noncontrast CT scan of the abdomen pelvis was ordered and shows a 1 mm stone in the distal right ureter with associated mild right hydronephrosis and partial right renal obstruction. It also shows bilateral nephrolithiasis. She is status postcholecystectomy. She has degenerative disc disease throughout the lumbar spine. She has umbilical and periumbilical ventral hernias containing only fat. There is no herniated bowel segments. She does have mild sigmoid colon diverticulosis. 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 Patient was given additional dose of 5 mg of Dilaudid for her pain and requested to use the bathroom several times. After using the bathroom the last time she had complete relief of her pain. I suspect that she passed the kidney stone at that time. She will be monitored for a period of time in the emergency department. If her pain should recur she may require admission for pain control as she lives alone. At this time I anticipate discharge home. Medical Records Medical records reviewed: Yes I reviewed the patient's medical records Lab Data Lab results reviewed: Yes I reviewed the patient's lab results Labs: Lab Results 01/26/25 01/26/25 Range/Units 03:10 03:20 WBC 6.4 (4.0-11.0) 10^3/uL RBC 4.13 L (4.20-5.40) 10^6/uL Hgb 12.6 (12.0-16.0) g/dL Hct 38.6 (36.0-48.0) % MCV 93.5 (81.0-99.0) fL MCH 30.5 (26.7-34.0) pg MCHC 32.6 (29.9-35.2) g/dL RDW 14.0 (11.0-15.0) % Plt Count 254 (150-450) 10^3/uL MPV 10.8 (9.5-13.5) fL Neut % (Auto) 50.5 (43.0-75.0) % Lymph % (Auto) 38.7 (20.5-60.0) % [place] % (Auto) 8.1 (1.7-12.0) % Eos % (Auto) 1.7 (0.9-7.0) % Baso % (Auto) 0.8 (0.2-2.0) % Neut # (Auto) 3.3 (1.4-6.5) 10^3/uL Lymph # (Auto) 2.5 (1.2-3.8) 10^3/uL [place] # (Auto) 0.5 (0.3-0.8) 10^3/uL Eos # (Auto) 0.1 (0.0-0.7) 10^3/uL Baso # (Auto) 0.1 (0.0-0.1) 10^3/uL Abs Immat Gran (auto) 0.01 (0.00-0.03) 10^3/uL Imm/Tot Granulo (auto) 0.2 (0.0-0.5) % Sodium 144 (136-145) mmol/L Potassium 3.6 (3.5-5.1) mmol/L Chloride 106 (98-107) mmol/L Carbon Dioxide 28.0 (21.0-32.0) mmol/L Anion Gap 13.6 BUN 26.0 H (7.0-18.0) mg/dL Creatinine 1.08 H (0.55-1.02) mg/dL Est GFR ( Amer) 59 L (>=60 mL/min/1.73m^2) Est GFR (Non-Af Amer) 49 L (>=60 mL/min/1.73m^2) BUN/Creatinine Ratio 24.1 Glucose 111 H (74-106) mg/dL Calcium 9.1 (8.5-10.1) mg/dL Total Bilirubin 0.4 (0.2-1.0) mg/dL AST 18 (15-37) U/L ALT 20 (14-59) U/L Alkaline Phosphatase 63 (46-116) U/L Total Protein 7.0 (6.4-8.2) g/dL Albumin 3.9 (3.4-5.0) g/dL Globulin 3.1 g/dL Albumin/Globulin Ratio 1.3 Urine Color Lt. yellow (YELLOW) Urine Clarity Clear (CLEAR) Urine pH 5.5 (5.0-9.0) Ur Specific [place] 1.025 (1.005-1.025) Urine Protein Trace (NEG/TRACE) mg/dL Urine Glucose (UA) Negative (NEGATIVE) mg/dL Urine Ketones Negative (NEGATIVE) mg/dL Urine Occult Blood Large A (NEGATIVE) Urine Nitrite Negative (NEGATIVE) Urine Bilirubin Negative (NEGATIVE) Urine Urobilinogen 0.2 (0.2-1.0) EU/dL Ur Leukocyte Esterase Negative (NEGATIVE) Urine RBC 5-10 A (0-2) #/HPF Urine WBC None seen (NONE SEEN) #/HPF Ur Squamous Epith Cells Rare (NONE/RARE) #/LPF Urine Crystals Seen A (None Seen) #/HPF Amorphous Sediment Few Urine Bacteria None seen (NONE SEEN) #/HPF Urine Casts None seen (NONE SEEN) #/LPF Urine Mucus None seen (NONE SEEN) Urine Yeast Seen A (NONE SEEN) Ur Culture Indicated? No Discharge Plan Discharge Chief Complaint: Urogenital-Female Clinical Impression: Kidney stone on right side Patient Disposition: Home, Self-Care Time of Disposition Decision: 07:32 Condition: Good Mode of Transportation: Private Vehicle Prescriptions / Home Meds: No Action tramadol 50 mg tablet 50 mg PO Q8H PRN (Reason: pain) Qty: 14 0RF metoprolol succinate 100 mg tablet extended release 24 hr 50 mg PO Q12H isosorbide mononitrate 60 mg tablet extended release 24 hr 60 mg PO BID Eliquis 5 mg tablet 5 mg PO Q12H atorvastatin 10 mg tablet 10 mg PO DAILY liothyronine 25 mcg tablet 25 mcg PO DAILY spironolactone 25 mg tablet 25 mg PO DAILY losartan 50 mg tablet 100 mg PO DAILY ergocalciferol (vitamin D2) 1,000 unit capsule 1,000 mcg PO DAILY Print Language: Citizen [place] Instructions: Kidney Stones (ED) Additional Instructions: Handwritten prescriptions for [place] and Zofran provided. Referrals: Norris Bates MD [Primary Care Provider] - 1 week Discharge Date/Time: 01/26/25 08:15 Documented by User: Timothy Alcantar MD 01/26/25 07:34 HPI HPI - General Adult General Chief complaint: Urogenital-Female Stated complaint: FLANK PAIN Time Seen by Provider: 04/17/25 03:08 Related Data Home Medications ?Medication ?Instructions ?Recorded ?Confirmed apixaban 5 mg tablet (Eliquis) 5 mg PO Q12H 01/13/24 01/26/25 atorvastatin 10 mg tablet 10 mg PO DAILY 01/13/24 01/26/25 ergocalciferol (vitamin D2) 1,000 1,000 mcg PO DAILY 01/13/24 01/26/25 unit capsule isosorbide mononitrate 60 mg 60 mg PO BID 01/13/24 01/26/25 tablet,extended release 24 hr liothyronine 25 mcg tablet 25 mcg PO DAILY 01/13/24 01/26/25 losartan 50 mg tablet 100 mg PO DAILY 01/13/24 01/26/25 metoprolol succinate 100 mg 50 mg PO Q12H 01/13/24 01/26/25 tablet,extended release 24 hr spironolactone 25 mg tablet 25 mg PO DAILY 01/13/24 01/26/25 Previous Rx's ?Medication ?Instructions ?Recorded tramadol 50 mg tablet 50 mg PO Q8H PRN pain #14 tabs 12/09/24 Allergies Allergy/AdvReac Type Severity Reaction Status Date / Time diltiazem (From Cardizem) Allergy Hives Verified 01/26/25 03:12 digoxin AdvReac Severe Nausea Verified 01/26/25 03:12 Opioid HPI Opioid Management Most Recent Opioid Data: Last Pain Scale 8 01/26/25 05:53 01/26/25 Last MAR Pain Assessment 01/26/25 05:53 PFSH PFS Medical History (Updated 01/26/25 @ 05:43 by Bri Mcdonald MD) Atrial fibrillation ?I48.91 - Unspecified atrial fibrillation (ICD-10) Social History Little interest or pleasure in doing things: not at all Feeling down, depressed, or hopeless: not at all Exam Constitutional Vital Signs, click to edit/add: Last Vital Signs Temp 97.7 F 01/26/25 03:07 Pulse 72 01/26/25 03:07 Resp 16 01/26/25 03:07 BP 142/60 H 01/26/25 06:50 Pulse Ox 95 01/26/25 03:07 O2 Del Method Room Air 01/26/25 03:07 Course Vital Signs Vital signs: Vital Signs Temperature 97.7 F 01/26/25 03:07 Pulse Rate 72 01/26/25 03:07 Respiratory Rate 16 01/26/25 03:07 Blood Pressure 188/78 H 01/26/25 03:07 Pulse Oximetry 95 01/26/25 03:07 Oxygen Delivery Method Room Air 01/26/25 03:07 Temperature 97.7 F 01/26/25 03:07 Pulse Rate 72 01/26/25 03:07 Respiratory Rate 16 01/26/25 03:07 Blood Pressure 142/60 H 01/26/25 06:50 Pulse Oximetry 95 01/26/25 03:07 Oxygen Delivery Method Room Air 01/26/25 03:07 Medical Decision Making MDM Narrative Medical decision making narrative: This 84-year-old presents for evaluation of acute onset of right sided flank pain after several episodes of urinary frequency starting around 12:30 AM after going to bed this morning. She denies any nausea or vomiting. She does not have a history of kidney stone. She does not have any mid abdominal pain or flank pain. She has not had any dizziness or syncope. There is no radiation of her right sided pain into her buttocks or legs. She has not had any fever. She denies any chest pain or shortness of breath. Her femoral and dorsalis pedis pulses were brisk and equal bilaterally. She is on Eliquis due to a history of atrial fibrillation for which she had ablation in the past. On arrival she was quite uncomfortable and was medicated with 2 mg of morphine and Zofran as well as IV fluids. She had minimal relief of this and was given 0.5 mg of Dilaudid. Routine labs are ordered and are reviewed. She has a normal white count and hemoglobin. Electrolytes are normal. Urine is negative for infection but positive for large blood. Noncontrast CT scan of the abdomen pelvis was ordered and shows a 1 mm stone in the distal right ureter with associated mild right hydronephrosis and partial right renal obstruction. It also shows bilateral nephrolithiasis. She is status postcholecystectomy. She has degenerative disc disease throughout the lumbar spine. She has umbilical and periumbilical ventral hernias containing only fat. There is no herniated bowel segments. She does have mild sigmoid colon diverticulosis. 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 Patient was given additional dose of 5 mg of Dilaudid for her pain and requested to use the bathroom several times. After using the bathroom the last time she had complete relief of her pain. I suspect that she passed the kidney stone at that time. She will be monitored for a period of time in the emergency department. If her pain should recur she may require admission for pain control as she lives alone. At this time I anticipate discharge home. JK 7:30 am the patient is pain-free and awake and alert and ambulatory without difficulty. She is being discharged home and CAT scan findings were discussed with the patient. She was given prescriptions for [place] and Zofran by Dr. Mcdonald. Treatment diagnosis and follow-up were discussed with the patient. Differential Diagnosis Differential Diagnosis: Kidney stone, UTI, aortic aneurysm Lab Data Lab results reviewed: Yes I reviewed the patient's lab results Labs: Lab Results 01/26/25 01/26/25 Range/Units 03:10 03:20 WBC 6.4 (4.0-11.0) 10^3/uL RBC 4.13 L (4.20-5.40) 10^6/uL Hgb 12.6 (12.0-16.0) g/dL Hct 38.6 (36.0-48.0) % MCV 93.5 (81.0-99.0) fL MCH 30.5 (26.7-34.0) pg MCHC 32.6 (29.9-35.2) g/dL RDW 14.0 (11.0-15.0) % Plt Count 254 (150-450) 10^3/uL MPV 10.8 (9.5-13.5) fL Neut % (Auto) 50.5 (43.0-75.0) % Lymph % (Auto) 38.7 (20.5-60.0) % [place] % (Auto) 8.1 (1.7-12.0) % Eos % (Auto) 1.7 (0.9-7.0) % Baso % (Auto) 0.8 (0.2-2.0) % Neut # (Auto) 3.3 (1.4-6.5) 10^3/uL Lymph # (Auto) 2.5 (1.2-3.8) 10^3/uL [place] # (Auto) 0.5 (0.3-0.8) 10^3/uL Eos # (Auto) 0.1 (0.0-0.7) 10^3/uL Baso # (Auto) 0.1 (0.0-0.1) 10^3/uL Abs Immat Gran (auto) 0.01 (0.00-0.03) 10^3/uL Imm/Tot Granulo (auto) 0.2 (0.0-0.5) % Sodium 144 (136-145) mmol/L Potassium 3.6 (3.5-5.1) mmol/L Chloride 106 (98-107) mmol/L Carbon Dioxide 28.0 (21.0-32.0) mmol/L Anion Gap 13.6 BUN 26.0 H (7.0-18.0) mg/dL Creatinine 1.08 H (0.55-1.02) mg/dL Est GFR ( Amer) 59 L (>=60 mL/min/1.73m^2) Est GFR (Non-Af Amer) 49 L (>=60 mL/min/1.73m^2) BUN/Creatinine Ratio 24.1 Glucose 111 H (74-106) mg/dL Calcium 9.1 (8.5-10.1) mg/dL Total Bilirubin 0.4 (0.2-1.0) mg/dL AST 18 (15-37) U/L ALT 20 (14-59) U/L Alkaline Phosphatase 63 (46-116) U/L Total Protein 7.0 (6.4-8.2) g/dL Albumin 3.9 (3.4-5.0) g/dL Globulin 3.1 g/dL Albumin/Globulin Ratio 1.3 Urine Color Lt. yellow (YELLOW) Urine Clarity Clear (CLEAR) Urine pH 5.5 (5.0-9.0) Ur Specific [place] 1.025 (1.005-1.025) Urine Protein Trace (NEG/TRACE) mg/dL Urine Glucose (UA) Negative (NEGATIVE) mg/dL Urine Ketones Negative (NEGATIVE) mg/dL Urine Occult Blood Large A (NEGATIVE) Urine Nitrite Negative (NEGATIVE) Urine Bilirubin Negative (NEGATIVE) Urine Urobilinogen 0.2 (0.2-1.0) EU/dL Ur Leukocyte Esterase Negative (NEGATIVE) Urine RBC 5-10 A (0-2) #/HPF Urine WBC None seen (NONE SEEN) #/HPF Ur Squamous Epith Cells Rare (NONE/RARE) #/LPF Urine Crystals Seen A (None Seen) #/HPF Amorphous Sediment Few Urine Bacteria None seen (NONE SEEN) #/HPF Urine Casts None seen (NONE SEEN) #/LPF Urine Mucus None seen (NONE SEEN) Urine Yeast Seen A (NONE SEEN) Ur Culture Indicated? No Imaging Data CT scan - abdomen: Radiologist's impression: 1 mm stone in the distal ureter Discharge Plan Discharge Chief Complaint: Urogenital-Female Clinical Impression: Kidney stone on right side Patient Disposition: Home, Self-Care Time of Disposition Decision: 07:32 Condition: Good Mode of Transportation: Private Vehicle Prescriptions / Home Meds: No Action tramadol 50 mg tablet 50 mg PO Q8H PRN (Reason: pain) Qty: 14 0RF metoprolol succinate 100 mg tablet extended release 24 hr 50 mg PO Q12H isosorbide mononitrate 60 mg tablet extended release 24 hr 60 mg PO BID Eliquis 5 mg tablet 5 mg PO Q12H atorvastatin 10 mg tablet 10 mg PO DAILY liothyronine 25 mcg tablet 25 mcg PO DAILY spironolactone 25 mg tablet 25 mg PO DAILY losartan 50 mg tablet 100 mg PO DAILY ergocalciferol (vitamin D2) 1,000 unit capsule 1,000 mcg PO DAILY Print Language: Citizen [place] Instructions: Kidney Stones (ED) Additional Instructions: Handwritten prescriptions for [place] and Zofran provided. Referrals: Norris Bates MD [Primary Care Provider] - 1 week Discharge Date/Time: 01/26/25 08:15
[2025-01-26 03:39] LABS: Bacteria Urine NONE SEEN #/HPF (NONE SEEN); Mucus Urine NONE SEEN (NONE SEEN); WBC Urine NONE SEEN #/HPF (NONE SEEN)
[2025-01-26] MEDS: ONDANSETRON PF 4 MG/2 ML VIAL IV (03:39)
[2025-01-26] MEDS: MORPHINE SULFATE 2 MG/ML SYRINGE IV (03:39)
[2025-01-26 03:40] LABS: Amorphous Sediment Urine FEW; Cast Seen? NONE SEEN #/LPF (NONE SEEN); Crystals Seen? Seen #/HPF (None Seen); Squamous Epithelial Cell Urine RARE #/LPF (NONE/RARE); Urine Culture Indicated NO
[2025-01-26 03:49] LABS: Alanine Aminotransferase 20 U/L (14-59); Albumin Globulin Ratio 1.3; Albumin Level 3.9 g/dL (3.4-5.0); Alkaline Phosphatase 63 U/L (46-116); Anion Gap 13.6; Aspartate Amino Transferase 18 U/L (15-37); BUN Creatinine Ratio 24.1; Bilirubin Total 0.4 mg/dL (0.2-1.0); Calcium 9.1 mg/dL (8.5-10.1); Chloride 106 mmol/L (98-107); Estimated GFR (African America 59 (>=60 mL/min/1.73m^2); Estimated GFR (Non-African Ame 49 (>=60 mL/min/1.73m^2); Globulin 3.1 g/dL; Glucose 111 mg/dL (74-106); Potassium 3.6 mmol/L (3.5-5.1); Sodium 144 mmol/L (136-145)
[2025-01-26] MEDS: 0.9 % SODIUM CHLORIDE 500 ML IV (04:19)
[2025-01-26] MEDS: HYDROMORPHONE HCL 0.5 MG/0.5 ML SYRINGE IV ×2 (04:21→05:53)
[2025-01-26] MEDS: 0.9 % SODIUM CHLORIDE 1,000 ML 100 ML IV (05:02)
[2025-01-26] MEDS: HYDROCODONE/ACET 5-325 MG TABLET 1 TAB PO (05:53)
[2025-01-26] MEDS: KETOROLAC TROMETHAMINE 30 MG/ML VIAL 15 MG IVP (06:49)
[2025-01-26 06:50] VITALS: BP 142/60
== END 2025-01-26 08:15 | disposition home or self-care (01) ==
PROVIDERS: Emergency Medicine; Emergency Provider Emergency Medicine; PCP Family Medicine
DX: N13.2 Hydronephrosis with renal and ureteral calculous obstruction (principal); R10.31 Right lower quadrant pain; K42.9 Umbilical hernia without obstruction or gangrene; K43.9 Ventral hernia without obstruction or gangrene; Z90.49 Acquired absence of other specified parts of digestive tract; M51.369 Other intervertebral disc degeneration, lumbar region without mention of lumbar back pain or lower extremity pain; K57.90 Diverticulosis of intestine, part unspecified, without perforation or abscess without bleeding; Z79.01 Long term (current) use of anticoagulants; I48.91 Unspecified atrial fibrillation; M16.0 Bilateral primary osteoarthritis of hip
CPT/HCPCS: 36415; 74176; 80053; 81001; 85025; 96374; 96375; 96376; 99284; J1171; J1885; J2270; J2405

== ENCOUNTER 2025-03-22 09:31 | Outpatient (OUT) | payer MEDICARE, OTHER, SELFPAY ==
[2025-03-22 10:22] LABS: Basophils Absolute Auto 0.1 10^3/uL (0.0-0.1); Basophils Percent Auto 1.2 % (0.2-2.0); Eosinophils Absolute Auto 0.1 10^3/uL (0.0-0.7); Eosinophils Percent Auto 1.7 % (0.9-7.0); Hematocrit 40.3 % (36.0-48.0); Hemoglobin 13.1 g/dL (12.0-16.0); Immature Granulocytes Abs Auto 0.01 10^3/uL (0.00-0.03); Immature Granulocytes Pct Auto 0.2 % (0.0-0.5); Lymphocytes Absolute Auto 1.8 10^3/uL (1.2-3.8); Lymphocytes Percent Auto 35.3 % (20.5-60.0); Mean Corpuscular HGB Conc 32.5 g/dL (29.9-35.2); Mean Corpuscular Hemoglobin 30.5 pg (26.7-34.0); Mean Corpuscular Volume 93.9 fL (81.0-99.0); Mean Platelet Volume 10.7 fL (9.5-13.5); Monocytes Absolute Auto 0.5 10^3/uL (0.3-0.8); Monocytes Percent Auto 9.7 % (1.7-12.0); Neutrophils Absolute Auto 2.7 10^3/uL (1.4-6.5); Neutrophils Percent Auto 51.9 % (43.0-75.0); Platelet Count 251 10^3/uL (150-450); Red Blood Count 4.29 10^6/uL (4.20-5.40); Red Cell Distribution Width 13.4 % (11.0-15.0); White Blood Count 5.2 10^3/uL (4.0-11.0)
[2025-03-22 10:41] LABS: Estimated Average Glucose 126 mg/dL
[2025-03-22 10:45] LABS: Alanine Aminotransferase 20 U/L (14-59); Albumin Globulin Ratio 1.3; Alkaline Phosphatase 69 U/L (46-116); Anion Gap 12.1; Aspartate Amino Transferase 17 U/L (15-37); BUN Creatinine Ratio 22.9; Bilirubin Total 0.5 mg/dL (0.2-1.0); Calcium 9.3 mg/dL (8.5-10.1); Carbon Dioxide 30.5 mmol/L (21.0-32.0); Chloride 104 mmol/L (98-107); Chol HDL Ratio 2.5; Cholesterol 114 mg/dL (<=200); Estimated GFR (African America >60 (>=60 mL/min/1.73m^2); Estimated GFR (Non-African Ame 56 (>=60 mL/min/1.73m^2); Free T3 2.61 pg/mL (2.18-3.98); Globulin 3.1 g/dL; Glucose 96 mg/dL (74-106); HDL Cholesterol 45 mg/dL (40-60); Potassium 4.6 mmol/L (3.5-5.1); Sodium 142 mmol/L (136-145); Thyroid Stimulating Hormone 0.064 uIU/mL (0.358-3.740); Total Protein 7.1 g/dL (6.4-8.2); Triglycerides 195 mg/dL (<=150)
== END 2025-03-22 09:32 | disposition home or self-care (01) ==
LOC: LAB 09:35
PROVIDERS: PCP Family Medicine; Visit Provider Family Medicine
DX: R00.2 Palpitations (principal); R06.00 Dyspnea, unspecified; I48.0 Paroxysmal atrial fibrillation; I25.10 Atherosclerotic heart disease of native coronary artery without angina pectoris; E78.5 Hyperlipidemia, unspecified; E03.9 Hypothyroidism, unspecified; R73.09 Other abnormal glucose; D64.9 Anemia, unspecified; I50.30 Unspecified diastolic (congestive) heart failure; I11.0 Hypertensive heart disease with heart failure
CPT/HCPCS: 36415; 80053; 80061; 83036; 83540; 83880; 84436; 84443; 84481; 85025

== ENCOUNTER 2025-07-07 10:37 | Outpatient (OUT) | payer MEDICARE, OTHER, SELFPAY ==
--- OUTSIDE RECORDS SUMMARY | 2025-07-07 10:42 | XMS_ITS | CCD ---
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 Role Phone UNKNOWN, PROVIDER Admitting Unavailable [...] dilTIAZem; Translations: [DILTIAZEM] Drug Allergy 11-19-2015 [facility] Repository (1 source) Digoxin; Translations: [DIGOXIN] Drug Allergy 12-24-2022 [facility] Repository Problems Active Problems Problem Classification Problem [...] disease (3 sources) Atherosclerotic heart disease of [place] coronary artery without angina pectoris; Translations: [ASHD [place] W/O ANGINA PECTORIS] Onset: 02-05-2022 Chronic [...] 05-19-2022 Chronic Other aftercare (1 source) 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; Translations: [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 DRUG THERAPY] Onset: 01-13-2023 Episodic Other aftercare (1 source) 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 01/04/2025 [facility] Office Visiton 12-26-2024 Follow-up visit [id number] Jessica Camarena ra 1940 F Date Provider Department Center 12/26/2024 [facility]RE C[facility] No family history on file Level of Service:07406 MT OFFICE/OUTPATIENT ESTABLISHED MOD MDM 30 MIN Normal [facility] Office Vis[facility] 01-19-2024 Follow-up visit [id number] Jessica Camarena ra 1940 F Date Provider Department Center 01/19/2024 KAYLYN JANG VIRY [facility] No family history on file Level of Service:26494 MT OFFICE/OUTPATIENT ESTABLISHED MOD MDM 30 MIN Normal [facility] Office Visiton 01-07-2024 Follow-up visit [id number] TennillemeganalinJessica ra 1940 F Date Provider Department Center 01/07/2024 KAYLYN JANG VIRY [facility] No family history on file Level of Service:59408 MT OFFICE/OUTPATIENT ESTABLISHED MOD MDM 30 MIN Normal [facility] PROF CHEM 8 (BAS METB)on Anion gap [Moles/Vol] 12.8 mmol/L Normal [facility] Comment on above: Performed By: #### B VENESSA DARNELLTRDANNIELLE, CK #### [facility] Laboratory [address] [address] [address] Manfred Brooks Calcium [Mass/Vol] 9.5 mg/dL Normal 8.5-10.1 [facility] Comment on above: Performed By: #### B VENESSA DARNELLTRDANNIELLE, CK #### [facility] Laboratory [address] [address] [address] Manfred Brooks Chloride [Moles/Vol] 106 mmol/L Normal 98-107 [facility] Comment on above: Performed By: #### B MANN HSTROPN, CK #### [facility] Laboratory [address] [address] [address] Manfred Brooks CO2 [Moles/Vol] 27.3 mmol/L Normal 21.0-32.0 [facility] Comment on above: Performed By: #### B MANN HSTRHANGN, CK #### [facility] Laboratory [address] [address] [address] Manfred Brooks Creatinine [Mass/Vol] 0.93 mg/dL Normal 0.55-1.02 [facility] Comment on above: Performed By: #### B VENESSA DARNELLTRHANGN, CK #### [facility] Laboratory [address] [address] [address] Manfred Brooks EGFR-AF MICRONESIAN >60 Normal >=60 [facility] Comment on above: Performed By: #### B MP, HSTROPN, CK #### [facility] Laboratory [address] [address] [address] Manfred Brooks EGFR-NON AF MICRONESIAN 58 mL/min/1.73m2 Critically low >=60 [facility] Comment on above: Performed By: #### B MP, HSTROPN, CK #### [facility] Laboratory [address] [address] [address] Manfred Brooks Glucose [Mass/Vol] 116 mg/dL Critically high 74-106 [facility] Comment on above: Performed By: #### B MP, HSTROPN, CK #### [facility] Laboratory [address] [place] [address] Dr. Manfred Brooks Potassium [Moles/Vol] 4.1 mmol/L Normal 3.5-5.1 [facility] Comment on above: Performed By: #### B MP, HSTROPN, CK #### [facility] Laboratory [address] [place] [address] Dr. Manfred Brooks Sodium [Moles/Vol] 142 mmol/L Normal 136-145 [facility] Comment on above: Performed By: #### B MP, HSTROPN, CK #### [facility] Laboratory [address] [address] [address] Manfred Brooks Urea nitrogen [Mass/Vol] 19.0 mg/dL Critically high 7.0-18.0 [facility] Comment on above: Performed By: #### B MP, HSTROPN, CK #### [facility] [address] [place] [address] Dr. Manfred Brooks Urea nitrogen/Creatinine [Mass ratio] 20.4 mg/mg Normal [facility] Comment on above: Performed By: #### B MP, HSTROPN, CK #### [facility] Laboratory [address] [place] [address] Dr. Manfred Brooks CBC AUTO DIFFon 01-09-2023 BASO # 0.1 103/ul Normal 0.0-0.1 [facility] Comment on above: Performed By: #### C VDTBH #### [facility] Laboratory [address] [place] [address] Dr. Manfred Brooks Basophils/100 WBC (Bld) 0.7 % Normal 0.2-2.0 [facility] Comment on above: Performed By: #### C VDTBH #### [facility] [address] [place] [address] Dr. Manfred Brooks EO # 0.1 103/ul Normal 0.0-0.7 [facility] Comment on above: Performed By: #### C VDTBH #### [facility] [address] [place] [address] Dr. Manfred Brooks Eosinophils/100 WBC (Bld) 1.9 % Normal 0.9-7.0 [facility] Comment on above: Performed By: #### C VDTBH #### [facility] [address] [place] [address] Dr. Manfred Brooks Erythrocyte distribution width (RBC) [Ratio] 15.5 % Critically high 11.0-15.0 [facility] Comment on above: Performed By: #### C VDTBH #### [facility] [address] [place] [address] Dr. Manfred Brooks Hematocrit (Bld) [Volume fraction] 39.1 % Normal 36.0-48.0 [facility] Comment on above: Performed By: #### C VDTBH #### [facility] [address] [place] [address] Dr. Manfred Brooks Hemoglobin (Bld) [Mass/Vol] 12.6 g/dL Normal 12.0-16.0 [facility] Comment on above: Performed By: #### C VDTBH #### [facility] Laboratory [address] [place] [address] Dr. Manfred Brooks IG # 0.02 10e3/ul Normal 0.00-0.03 [facility] Comment on above: Performed By: #### C VDTBH #### [facility] [address] [place] [address] Dr. Manfred Brooks IG % 0.3 % Normal 0.0-0.5 [facility] Comment on above: Performed By: #### C VDTBH #### [facility] [address] [place] [address] Dr. Manfred Brooks LYMPH # 2.5 103/ul Normal 1.2-3.8 [facility] Comment on above: Performed By: #### C VDTBH #### [facility] [address] [place] [address] Dr. Manfred Brooks Lymphocytes/100 WBC (Bld) 36.2 % Normal 20.5-60.0 [facility] Comment on above: Performed By: #### C VDTBH #### [facility] [address] [place] [address] Dr. Manfred Brooks MANUAL DIFF REQ NO Normal [facility] Comment on above: Performed By: #### C VDTBH #### [facility] [address] [place] [address] Dr. Manfred Brooks MCH (RBC) [Entitic mass] 29.0 pg Normal 26.7-34.0 [facility] Comment on above: Performed By: #### C VDTBH #### [facility] [address] [place] [address] Dr. Manfred Brooks MCHC (RBC) [Mass/Vol] 32.2 g/dL Normal 29.9-35.2 [facility] Comment on above: Performed By: #### C VDTBH #### [facility] [address] [place] [address] Dr. Manfred Brooks MCV (RBC) [Entitic vol] 89.9 fL Normal 81.0-99.0 [facility] Comment on above: Performed By: #### C VDTBH #### [facility] [address] [place] [address] Dr. Manfred Brooks MONO # 0.6 103/ul Normal 0.3-0.8 [facility] Comment on above: Performed By: #### C VDTBH #### [facility] [address] [place] [address] Dr. Manfred Brooks Monocytes/100 WBC (Bld) 9.2 % Normal 1.7-12.0 [facility] Comment on above: Performed By: #### C VDTBH #### [facility] [address] [place] [address] Dr. Manfred Brooks NEUT # 3.5 103/ul Normal 1.4-6.5 [facility] Comment on above: Performed By: #### C VDTBH #### [facility] [address] [place] [address] Dr. Manfred Brooks Neutrophils/100 WBC (Bld) 51.7 % Normal 43.0-75.0 [facility] Comment on above: Performed By: #### C VDTBH #### [facility] [address] [place] [address] Dr. Manfred Brooks Platelet mean volume (Bld) [Entitic vol] 11.3 fL Normal 9.5-13.5 [facility] Comment on above: Performed By: #### C VDTBH #### [facility] [address] [place] [address] Dr. Manfred Brooks PLT 215 103/ul Normal 150-450 [facility] Comment on above: Performed By: #### C VDTBH #### [facility] [address] [place] [address] Dr. Manfred Brooks RBC 4.35 106/ul Normal 4.20-5.40 [facility] Comment on above: Performed By: #### C VDTBH #### [facility] [address] [place] [address] Dr. Manfred Brooks WBC 6.8 103/ul Normal 4.0-11.0 [facility] Comment on above: Performed By: #### C VDTBH #### [facility] [address] [place] [address] Dr. Manfred Broosk CPKon 01-09-2023 CK [Catalytic activity/Vol] 121 U/L Normal 26-192 [facility] Comment on above: Performed By: #### B MP, HSTROPN, CK #### [facility] [address] [place] [address] Dr. Manfred Brooks PROF CHEM 8 (BAS METB)on Anion gap [Moles/Vol] 14.2 mmol/L Normal [facility] Comment on above: Performed By: #### B MP, HSTROPN, CK #### [facility] [address] [place] [address] Dr. Manfred Brooks Calcium [Mass/Vol] 9.3 mg/dL Normal 8.5-10.1 [facility] Comment on above: Performed By: #### B MANN HSTROPN, CK #### [facility] [address] [place] [address] Dr. Manfred Brooks Chloride [Moles/Vol] 103 mmol/L Normal 98-107 [facility] Comment on above: Performed By: #### B MANN HSTROPN, CK #### [facility] [address] [place] [address] Dr. Manfred Brooks CO2 [Moles/Vol] 30.5 mmol/L Normal 21.0-32.0 [facility] Comment on above: Performed By: #### B MANN HSTROPN, CK #### [facility] [address] [place] [address] Dr. Manfred Brooks Creatinine [Mass/Vol] 0.76 mg/dL Normal 0.55-1.02 [facility] Comment on above: Performed By: #### B MANN HSTROPN, CK #### [facility] [address] [place] [address] Dr. Manfred Brooks EGFR-AF MICRONESIAN >60 Normal >=60 [facility] Comment on above: Performed By: #### B MANN HSTROPN, CK #### [facility] [address] [place] [address] Dr. Manfred Brooks EGFR-NON AF MICRONESIAN >60 Normal >=60 [facility] Comment on above: Performed By: #### B MP, HSTROPN, CK #### [facility] [address] [address] [address] Manfred Brooks Glucose [Mass/Vol] 97 mg/dL Normal 74-106 [facility] Comment on above: Performed By: #### B MP, HSTROPN, CK #### [facility] [address] [place] [address] Dr. Manfred Brooks Potassium [Moles/Vol] 4.7 mmol/L Normal 3.5-5.1 [facility] Comment on above: Performed By: #### B MP, HSTROPN, CK #### [facility] [address] [address] [address] Manfred Brooks Sodium [Moles/Vol] 143 mmol/L Normal 136-145 [facility] Comment on above: Performed By: #### B MP, HSTROPN, CK #### [facility] [address] [place] [address] Dr. Manfred Brooks Urea nitrogen [Mass/Vol] 16.0 mg/dL Normal 7.0-18.0 [facility] Comment on above: Performed By: #### B MP, HSTROPN, CK #### [facility] [address] [address] [address] Manfred Brooks Urea nitrogen/Creatinine [Mass ratio] 21.1 mg/mg Normal [facility] Comment on above: Performed By: #### B MP, HSTROPN, CK #### [facility] [address] [place] [address] Dr. Manfred Brooks TROPONIN, HIGH SENSITIVITYon 01-09-2023 HSTROP 6.1 pg/mL Normal 4.0-51.3 [facility] Comment on above: Result Comment: CUT- OFF POINTS HAVE BEEN ESTABLISHED BASED ON THE FOURTH UNIVERSAL DEFINITIONS OF MYOCARDIAL INFARCTION. THE UPPER REFERENCE LIMIT (URL) OF TROPONIN, DEFINED THE 99TH PERCENTILE OF cTnI DISTRIBUTION IN A REFERENCE POPULATION, HAS BEEN CONFIRMED THE DECISION THRESHOLD FOR SC DIAGNOSIS. Performed By: #### B MP, HSTROPN, CK #### [facility] [address] [place] [address] Dr. Manfred Brooks XR CHEST 1 Von [...] NICOLE CLINE Date: 2023-01-09 08:12 Normal [facility] CBC AUTO DIFFon 01-07-2023 BASO # 0.1 103/ul Normal 0.0-0.1 [facility] Comment on above: Performed By: #### B MP, HSTROPN, CK #### [facility] [address] [place] [address] Dr. Manfred Brooks Basophils/100 WBC (Bld) 0.8 % Normal 0.2-2.0 [facility] Comment on above: Performed By: #### B MP, HSTROPN, CK #### [facility] [address] [address] [address] Manfred Brooks EO # 0.1 103/ul Normal 0.0-0.7 [facility] Comment on above: Performed By: #### B MP, HSTROPN, CK #### [facility] [address] [address] [address] Manfred Brooks Eosinophils/100 WBC (Bld) 2.4 % Normal 0.9-7.0 [facility] Comment on above: Performed By: #### B MP, HSTROPN, CK #### [facility] [address] [address] [address] Manfred Brooks Erythrocyte distribution width (RBC) [Ratio] 15.6 % Critically high 11.0-15.0 [facility] Comment on above: Performed By: #### B MP, HSTROPN, CK #### [facility] [address] [address] [address] Manfred Brooks Hematocrit (Bld) [Volume fraction] 36.6 % Normal 36.0-48.0 [facility] Comment on above: Performed By: #### B MP, HSTROPN, CK #### [facility] [address] [address] [address] Manfred Brooks Hemoglobin (Bld) [Mass/Vol] 11.8 g/dL Critically low 12.0-16.0 [facility] Comment on above: Result Comment: RON ENT RECIEVED FLUIDS YESTERDAY AFTER MORNING CBC Performed By: #### B MP, HSTROPN, CK #### [facility] [address] [place] [address] Dr. Manfred Brooks IG # 0.01 10e3/ul Normal 0.00-0.03 [facility] Comment on above: Performed By: #### B MP, HSTROPN, CK #### [facility] [address] [place] [address] Dr. Manfred Brooks IG % 0.2 % Normal 0.0-0.5 [facility] Comment on above: Performed By: #### B MP, HSTROPN, CK #### [facility] [address] [address] [address] Manfred Brooks LYMPH # 2.1 103/ul Normal 1.2-3.8 [facility] Comment on above: Performed By: #### B MP, HSTROPN, CK #### [facility] [address] [address] [address] Manfred Brooks Lymphocytes/100 WBC (Bld) 35.1 % Normal 20.5-60.0 [facility] Comment on above: Performed By: #### B MP, HSTROPN, CK #### [facility] [address] [address] [address] Manfred Brooks MANUAL DIFF REQ NO Normal [facility] Comment on above: Performed By: #### B MP, HSTROPN, CK #### [facility] [address] [address] [address] Manfred Brooks MCH (RBC) [Entitic mass] 28.9 pg Normal 26.7-34.0 [facility] Comment on above: Performed By: #### B MP, HSTROPN, CK #### [facility] [address] [place] [address] Dr. Manfred Brooks MCHC (RBC) [Mass/Vol] 32.2 g/dL Normal 29.9-35.2 [facility] Comment on above: Performed By: #### B MP, HSTROPN, CK #### [facility] [address] [place] [address] Dr. Manfred Brooks MCV (RBC) [Entitic vol] 89.7 fL Normal 81.0-99.0 [facility] Comment on above: Performed By: #### B MP, HSTROPN, CK #### [facility] [address] [place] [address] Dr. Manfred Brooks MONO # 0.6 103/ul Normal 0.3-0.8 [facility] Comment on above: Performed By: #### B MP, HSTROPN, CK #### [facility] [address] [place] [address] Dr. Manfred Brooks Monocytes/100 WBC (Bld) 9.4 % Normal 1.7-12.0 [facility] Comment on above: Performed By: #### B MP, HSTROPN, CK #### [facility] [address] [place] [address] Dr. Manfred Brooks NEUT # 3.1 103/ul Normal 1.4-6.5 [facility] Comment on above: Performed By: #### B MP, HSTROPN, CK #### [facility] [address] [place] [address] Dr. Manfred Brooks Neutrophils/100 WBC (Bld) 52.1 % Normal 43.0-75.0 [facility] Comment on above: Performed By: #### B MP, HSTROPN, CK #### [facility] [address] [place] [address] Dr. Manfred Brooks Platelet mean volume (Bld) [Entitic vol] 10.3 fL Normal 9.5-13.5 [facility] Comment on above: Performed By: #### B MP, HSTROPN, CK #### [facility] [address] [place] [address] Dr. Manfred Brooks PLT 252 103/ul Normal 150-450 [facility] Comment on above: Performed By: #### B MP, HSTROPN, CK #### [facility] [address] [place] [address] Dr. Manfred Brooks RBC 4.08 106/ul Critically low 4.20-5.40 [facility] Comment on above: Performed By: #### B MP, HSTROPN, CK #### [facility] [address] [place] [address] Dr. Manfred Brooks WBC 5.9 103/ul Normal 4.0-11.0 [facility] Comment on above: Performed By: #### B MP, HSTROPN, CK #### [facility] [address] [place] [address] Dr. Manfred Brooks DIGOXINon 01-07-2023 DIG 0.5 ng/mL Critically low 0.9-2.0 [facility] Comment on above: Performed By: #### MILTON BENOIT #### [facility] [address] [place] [address] Dr. Manfred Brooks PROF 14(COMP METB)on 023 Albumin [Mass/Vol] 3.6 g/dL Normal 3.4-5.0 [facility] Comment on above: Performed By: #### C VDTBH #### [facility] [address] [place] [address] Dr. Manfred Brooks Albumin/Globulin [Mass ratio] 1.3 {ratio} Normal [facility] Comment on above: Performed By: #### C VDTBH #### [facility] [address] [place] [address] Dr. Manfred Brooks ALP [Catalytic activity/Vol] 67 U/L Normal 46-116 [facility] Comment on above: Performed By: #### C VDTBH #### [facility] [address] [place] [address] Dr. Manfred Brooks ALT [Catalytic activity/Vol] 23 U/L Normal 14-59 [facility] Comment on above: Performed By: #### C VDTBH #### [facility] [address] [place] [address] Dr. Manfred Brooks Anion gap [Moles/Vol] 10.8 mmol/L Normal [facility] Comment on above: Performed By: #### C VDTBH #### [facility] [address] [address] [address] Manfred Brooks AST [Catalytic activity/Vol] 14 U/L Critically low 15-37 [facility] Comment on above: Performed By: #### C VDTBH #### [facility] [address] [place] [address] Dr. Manfred Brooks Bilirubin [Mass/Vol] 0.7 mg/dL Normal 0.2-1.0 [facility] Comment on above: Performed By: #### C VDTBH #### [facility] [address] [place] [address] Dr. Manfred Brooks Calcium [Mass/Vol] 8.7 mg/dL Normal 8.5-10.1 [facility] Comment on above: Performed By: #### C VDTBH #### [facility] [address] [place] [address] Dr. Manfred Brooks Chloride [Moles/Vol] 106 mmol/L Normal 98-107 [facility] Comment on above: Performed By: #### C VDTBH #### [facility] [address] [place] [address] Dr. Manfred Brooks CO2 [Moles/Vol] 29.8 mmol/L Normal 21.0-32.0 [facility] Comment on above: Performed By: #### C VDTBH #### [facility] [address] [place] [address] Dr. Manfred Brooks Creatinine [Mass/Vol] 0.77 mg/dL Normal 0.55-1.02 [facility] Comment on above: Performed By: #### C VDTBH #### [facility] [address] [place] [address] Dr. Manfred Brooks EGFR-AF MICRONESIAN >60 Normal >=60 [facility] Comment on above: Performed By: #### C VDTBH #### [facility] [address] [place] [address] Dr. Manfred Brooks EGFR-NON AF MICRONESIAN >60 Normal >=60 [facility] Comment on above: Performed By: #### C VDTBH #### [facility] [address] [place] [address] [address] Manfred Brooks Globulin (S) [Mass/Vol] 2.7 g/dL Normal [facility] Comment on above: Performed By: #### C VDTBH #### [facility] [address] [place] [address] [address] Manfred Brooks Glucose [Mass/Vol] 99 mg/dL Normal 74-106 [facility] Comment on above: Performed By: #### C VDTBH #### [facility] [address] [place] [address] [address] Manfred Brooks Potassium [Moles/Vol] 3.6 mmol/L Normal 3.5-5.1 [facility] Comment on above: Performed By: #### C VDTBH #### [facility] [address] [place] [address] Dr. Manfred Brooks Protein [Mass/Vol] 6.3 g/dL Critically low 6.4-8.2 [facility] Comment on above: Performed By: #### C VDTBH #### [facility] [address] [place] [address] [address] Manfred Brooks Sodium [Moles/Vol] 143 mmol/L Normal 136-145 [facility] Comment on above: Performed By: #### C VDTBH #### [facility] [address] [place] [address] [address] Manfred Brooks Urea nitrogen [Mass/Vol] 19.0 mg/dL Critically high 7.0-18.0 [facility] Comment on above: Performed By: #### C VDTBH #### [facility] [address] [place] [address] [address] Manfred Brooks Urea nitrogen/Creatinine [Mass ratio] 24.7 mg/mg Normal [facility] Comment on above: Performed By: #### C VDTB #### [facility] [address] [place] [address] Dr. Manfred Brooks BNPon 01-06-2023 Natriuretic peptide B (Bld) [Mass/Vol] 186.0 pg/mL Normal <=1,800.0 [facility] Comment on above: Performed By: #### E MILTON HOGAN #### [facility] [address] [place] [address] Dr. Manfred Brooks CBC AUTO DIFFon 01-06-2023 BASO # 0.1 103/ul Normal 0.0-0.1 [facility] Comment on above: Performed By: #### B PRESSURE TESTER OPERATOR, CMP #### [facility] [address] [place] [address] Dr. Manfred Brooks Basophils/100 WBC (Bld) 1.2 % Normal 0.2-2.0 [facility] Comment on above: Performed By: #### B PRESSURE TESTER OPERATOR, CMP #### [facility] [address] [place] [address] Dr. Manfred Brooks EO # 0.1 103/ul Normal 0.0-0.7 [facility] Comment on above: Performed By: #### B PRESSURE TESTER OPERATOR, CMP #### [facility] [address] [place] [address] Dr. Manfred Brooks Eosinophils/100 WBC (Bld) 2.1 % Normal 0.9-7.0 [facility] Comment on above: Performed By: #### B PRESSURE TESTER OPERATOR, CMP #### [facility] [address] [place] [address] Dr. Manfred Brooks Erythrocyte distribution width (RBC) [Ratio] 15.2 % Critically high 11.0-15.0 [facility] Comment on above: Performed By: #### B PRESSURE TESTER OPERATOR, CMP #### [facility] [address] [place] [address] Dr. Manfred Brooks Hematocrit (Bld) [Volume fraction] 42.3 % Normal 36.0-48.0 [facility] Comment on above: Performed By: #### B PRESSURE TESTER OPERATOR, CMP #### [facility] [address] [place] [address] [address] Manfred Brooks Hemoglobin (Bld) [Mass/Vol] 13.8 g/dL Normal 12.0-16.0 [facility] Comment on above: Performed By: #### B PRESSURE TESTER OPERATOR, CMP #### [facility] [address] [place] [address] [address] Manfred Brooks IG # 0.01 10e3/ul Normal 0.00-0.03 [facility] Comment on above: Performed By: #### B PRESSURE TESTER OPERATOR, CMP #### [facility] [address] [place] [address] Dr. Manfred Brooks IG % 0.2 % Normal 0.0-0.5 [facility] Comment on above: Performed By: #### B PRESSURE TESTER OPERATOR, CMP #### [facility] [address] [place] [address] Dr. Manfred Brooks LYMPH # 2.1 103/ul Normal 1.2-3.8 [facility] Comment on above: Performed By: #### B PRESSURE TESTER OPERATOR, CMP #### [facility] [address] [place] [address] Dr. Manfred Brooks Lymphocytes/100 WBC (Bld) 35.6 % Normal 20.5-60.0 [facility] Comment on above: Performed By: #### B PRESSURE TESTER OPERATOR, CMP #### [facility] [address] [place] [address] Dr. Manfred Brooks MANUAL DIFF REQ NO Normal [facility] Comment on above: Performed By: #### B PRESSURE TESTER OPERATOR, CMP #### [facility] [address] [place] [address] Dr. Manfred Brooks MCH (RBC) [Entitic mass] 29.1 pg Normal 26.7-34.0 [facility] Comment on above: Performed By: #### B PRESSURE TESTER OPERATOR, CMP #### [facility] [address] [place] [address] Dr. Manfred Brooks MCHC (RBC) [Mass/Vol] 32.6 g/dL Normal 29.9-35.2 [facility] Comment on above: Performed By: #### B PRESSURE TESTER OPERATOR, CMP #### [facility] [address] [place] [address] Dr. Manfred Brooks MCV (RBC) [Entitic vol] 89.2 fL Normal 81.0-99.0 [facility] Comment on above: Performed By: #### B PRESSURE TESTER OPERATOR, CMP #### [facility] [address] [place] [address] Dr. Manfred Brooks MONO # 0.5 103/ul Normal 0.3-0.8 [facility] Comment on above: Performed By: #### B PRESSURE TESTER OPERATOR, CMP #### [facility] [address] [place] [address] Dr. Manfred Brooks Monocytes/100 WBC (Bld) 9.0 % Normal 1.7-12.0 [facility] Comment on above: Performed By: #### B PRESSURE TESTER OPERATOR, CMP #### [facility] [address] [place] [address] Dr. Manfred Brooks NEUT # 3.0 103/ul Normal 1.4-6.5 [facility] Comment on above: Performed By: #### B PRESSURE TESTER OPERATOR, CMP #### [facility] [address] [place] [address] Dr. Manfred Brooks Neutrophils/100 WBC (Bld) 51.9 % Normal 43.0-75.0 [facility] Comment on above: Performed By: #### B PRESSURE TESTER OPERATOR, CMP #### [facility] [address] [place] [address] Dr. Manfred Brooks Platelet mean volume (Bld) [Entitic vol] 10.1 fL Normal 9.5-13.5 [facility] Comment on above: Performed By: #### B PRESSURE TESTER OPERATOR, CMP #### [facility] [address] [place] [address] Dr. Manfred Brooks PLT 290 103/ul Normal 150-450 [facility] Comment on above: Performed By: #### B PRESSURE TESTER OPERATOR, CMP #### [facility] [address] [place] [address] Dr. Manfred Brooks RBC 4.74 106/ul Normal 4.20-5.40 [facility] Comment on above: Performed By: #### B PRESSURE TESTER OPERATOR, CMP #### [facility] [address] [place], [place] [address] Dr. 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 Manfred Brooks Covid-19 PCR (CVDTB)on 12-11 SARS-CoV-2 (COVID-19) RNA DAMIR+probe Ql (Unsp spec) Not detected Normal NOT DETECTED [facility] Comment on above: Result Comment: When diagnostic [...] for this test is supported by the [employer] of Health and Human Service's declaration that [...] used). Performed By: #### C VDTBH #### [facility] [address] [place] [address] [address] Manfred Brooks ECHOCARDIO M/2D COMPLETEon 0 01-06-2023 ECHOCARDIO M/2D COMPLETE Patient: BETTY CAMARENA Exam Date: 01/06/2023 : 1940 Gender:F Ordering : DR CAM BATES . Admission #: [id number] Family : DR DENISA ALEJANDRE M.D. Order #: [id number] CLICK HERE TO VIEW EXAM ECHOCARDIOGRAM REPORT [...] Alejandre M.D. on 01/06/2023 at 17:34 Normal [facility] FREE T3on 01-06-2023 FREE T3 5.79 pg/mlL Critically high 2.18-3.98 [facility] Comment on above: Performed By: #### C VDTBH #### [facility] [address] [place] [address] Dr. Manfred Brooks LACTATE/LACTIC ACIDon 2022 Lactate [Moles/Vol] 1.6 mmol/L Normal 0.4-2.[address] [facility] Comment on above: Performed By: #### B MP, HSTROPN, CK #### [facility] [address] [place] [address] Dr. Manfred Brooks PROF 14(COMP METB)on 023 Albumin [Mass/Vol] 4.1 g/dL Normal 3.4-5.0 [facility] Comment on above: Performed By: #### ANU BENOITRO #### [facility] [address] [place] [address] Dr. Manfred Brooks Albumin/Globulin [Mass ratio] 1.2 {ratio} Normal [facility] Comment on above: Performed By: #### ANU BENOITRO #### [facility] [address] [place] [address] Dr. Manfred Brooks ALP [Catalytic activity/Vol] 74 U/L Normal 46-116 [facility] Comment on above: Performed By: #### Nikolas HOGAN UMICRO #### [facility] [address] [place] [address] [address] Manfred Brooks ALT [Catalytic activity/Vol] 29 U/L Normal 14-59 [facility] Comment on above: Performed By: #### E SAMIRA, UMICRO #### [facility] [address] [place] [address] [address] Manfred Brooks Anion gap [Moles/Vol] 13.8 mmol/L Normal [facility] Comment on above: Performed By: #### E SAMIRA, UMICRO #### [facility] [address] [place] [address] Dr. Manfred Brooks AST [Catalytic activity/Vol] 19 U/L Normal 15-37 [facility] Comment on above: Performed By: #### Nikolas HOGAN UMICRO #### [facility] [address] [place] [address] Dr. Manfred Brooks Bilirubin [Mass/Vol] 0.4 mg/dL Normal 0.2-1.0 [facility] Comment on above: Performed By: #### Nikolas HOGAN UMICRO #### [facility] [address] [place] [address] Dr. Manfred Brooks Calcium [Mass/Vol] 9.6 mg/dL Normal 8.5-10.1 [facility] Comment on above: Performed By: #### Nikolas HOGAN, UMICRO #### [facility] [address] [place] [address] Dr. Manfred Brooks Chloride [Moles/Vol] 108 mmol/L Critically high 98-107 [facility] Comment on above: Performed By: #### Nikolas HOGAN, UMICRO #### [facility] [address] [place] [address] [address] Manfred Brooks CO2 [Moles/Vol] 31.0 mmol/L Normal 21.0-32.0 [facility] Comment on above: Performed By: #### Nikolas HOGAN, UMICRO #### [facility] [address] [place] [address] Dr. Manfred Brooks Creatinine [Mass/Vol] 0.80 mg/dL Normal 0.55-1.02 [facility] Comment on above: Performed By: #### ANU BENOITRO #### [facility] [address] [place] [address] Dr. Manfred Brooks EGFR-AF MICRONESIAN >60 Normal >=60 [facility] Comment on above: Performed By: #### ANU BENOITRO #### [facility] [address] [place] [address] Dr. Manfred Brooks EGFR-NON AF MICRONESIAN >60 Normal >=60 [facility] Comment on above: Performed By: #### ANU BENOITRO #### [facility] [address] [place] [address] Dr. Manfred Brooks Globulin (S) [Mass/Vol] 3.3 g/dL Normal [facility] Comment on above: Performed By: #### ANU BENOITRO #### [facility] [address] [place] [address] Dr. Manfred Brooks Glucose [Mass/Vol] 132 mg/dL Critically high 74-106 [facility] Comment on above: Performed By: #### ANU BENOITRO #### [facility] [address] [place] [address] Dr. Manfred Brooks Potassium [Moles/Vol] 3.8 mmol/L Normal 3.5-5.1 [facility] Comment on above: Performed By: #### ANU BENOITRO #### [facility] [address] [place] [address] Dr. Manfred Brooks Protein [Mass/Vol] 7.4 g/dL Normal 6.4-8.2 [facility] Comment on above: Performed By: #### ANU BENOITRO #### [facility] [address] [place] [address] Dr. Manfred Brooks Sodium [Moles/Vol] 149 mmol/L Critically high 136-145 [facility] Comment on above: Performed By: #### ANU BENOITRO #### [facility] [address] [place] [address] Dr. Manfred Brooks Urea nitrogen [Mass/Vol] 20.0 mg/dL Critically high 7.0-18.0 [facility] Comment on above: Performed By: #### MILTON BENOIT #### [facility] [address] [place] [address] Dr. Manfred Brooks Urea nitrogen/Creatinine [Mass ratio] 25.0 mg/mg Normal [facility] Comment on above: Performed By: #### MILTON BENOIT #### [facility] [address] [place] [address] Dr. Manfred Brooks PROTIMEon 01-06-2023 INR Coag (PPP) [Relative time] 0.99 {INR} Normal [facility] Comment on above: Performed By: #### B JAMILAH DARNELL CK #### [facility] [address] [place] [address] Dr. Manfred Brooks INR GUIDELINES SEE BELOW Normal [facility] Comment on above: Result Comment: JUSTYN RED INR: 2.0 - 3.0 CONDITIONS NOT LISTED BELOW 2.5 - 3.5 FOR PROSTHETIC HEART VALVE REPLACEMENT 2.5 - 3.5 RECURRENT THROMBOSIS Performed By: #### B JAMILAH DARNELL CK #### [facility] [address] [place] [address] Dr. Manfred Brooks PT Coag (PPP) [Time] 10.5 s Normal 9.0-11.6 [facility] Comment on above: Performed By: #### B JAMILAH DARNELL, CK #### [facility] [address] [place] [address] Dr. Manfred Brooks PTTon 01-06-2023 aPTT Coag (Bld) [Time] 28.9 s Normal 22.3-36.2 [facility] Comment on above: Performed By: #### B JAMILAH DARNELL CK #### [facility] [address] [place] [address] Dr. Manfred Brooks T4on 01-06-2023 T4 [Mass/Vol] 8.00 ug/dL Normal 4.80-13.90 [facility] Comment on above: Performed By: #### B PRESSURE TESTER OPERATOR, CMP #### [facility] [address] [place], [place] [address] Dr. Manfred Brooks TROPONIN, HIGH SENSITIVITYon 01-06-2023 HSTROP 18.1 pg/mL Normal 4.0-51.3 [facility] Comment on above: Result Comment: CUT- OFF POINTS HAVE BEEN ESTABLISHED BASED ON THE FOURTH UNIVERSAL DEFINITIONS OF MYOCARDIAL INFARCTION. THE UPPER REFERENCE LIMIT (URL) OF TROPONIN, DEFINED THE 99TH PERCENTILE OF cTnI DISTRIBUTION IN A REFERENCE POPULATION, HAS BEEN CONFIRMED THE DECISION THRESHOLD FOR SC DIAGNOSIS. Performed By: #### E RUR, UMICRO #### [facility] [address] [place] [address] [address] Manfred Brooks HSTROP 10.5 pg/mL Normal 4.0-51.3 [facility] Comment on above: Result Comment: CUT- OFF POINTS HAVE BEEN ESTABLISHED BASED ON THE FOURTH UNIVERSAL DEFINITIONS OF MYOCARDIAL INFARCTION. THE UPPER REFERENCE LIMIT (URL) OF TROPONIN, DEFINED THE 99TH PERCENTILE OF cTnI DISTRIBUTION IN A REFERENCE POPULATION, HAS BEEN CONFIRMED THE DECISION THRESHOLD FOR SC DIAGNOSIS. Performed By: #### E RUR, UMICRO #### [facility] [address] [place] [address] [address] Manfred Brooks TSHon 01-06-2023 TSH 0.567 uIU/mL Normal 0.358-3.740 [facility] Comment on above: Performed By: #### C VDTB #### [facility] [address] [place] [address] [address] Manfred Brooks XR CHEST 1 Von [...] by: JOHAN Kapadia: 2023-01-06 07:11 Normal [facility] PROF CHEM 8 (BAS METB)on Anion gap [Moles/Vol] 13.1 mmol/L Normal [facility] Comment on above: Performed By: #### E JAMILAR, UMICRO #### [facility] [address] [place] [address] Dr. Mafnred Brooks Calcium [Mass/Vol] 9.3 mg/dL Normal 8.5-10.1 [facility] Comment on above: Performed By: #### E JAMILAR, UMICRO #### [facility] [address] [place] [address] Dr. Manfred Brooks Chloride [Moles/Vol] 104 mmol/L Normal 98-107 [facility] Comment on above: Performed By: #### E SAMIRA, UMICRO #### [facility] [address] [place] [address] Dr. Manfred Brooks CO2 [Moles/Vol] 29.7 mmol/L Normal 21.0-32.0 [facility] Comment on above: Performed By: #### Nikolas HOGAN UMICRO #### [facility] [address] [place] [address] Dr. Manfred Brooks Creatinine [Mass/Vol] 0.72 mg/dL Normal 0.55-1.02 [facility] Comment on above: Performed By: #### Nikolas HOGAN, UMICRO #### [facility] [address] [place] [address] Dr. Manfred Brooks EGFR-AF MICRONESIAN >60 Normal >=60 [facility] Comment on above: Performed By: #### E SAMIRA, UMICRO #### [facility] [address] [place] [address] Dr. Manfred Brooks EGFR-NON AF MICRONESIAN >60 Normal >=60 [facility] Comment on above: Performed By: #### E JAMILAR, UMICRO #### [facility] [address] [place] [address] Dr. Manfred Brooks Glucose [Mass/Vol] 129 mg/dL Critically high 74-106 [facility] Comment on above: Performed By: #### MILTON BENOIT #### [facility] [address] [place] [address] [address] Manfred Brooks Potassium [Moles/Vol] 4.8 mmol/L Normal 3.5-5.1 [facility] Comment on above: Result Comment: spec imen slightly hemolysed. suggest repeat. Performed By: #### MILTON BENOIT #### [facility] [address] [place] [address] Dr. Manfred Brooks Sodium [Moles/Vol] 142 mmol/L Normal 136-145 [facility] Comment on above: Performed By: #### MILTON BENOIT #### [facility] [address] [place] [address] Dr. Manfred Brooks Urea nitrogen [Mass/Vol] 17.0 mg/dL Normal 7.0-18.0 [facility] Comment on above: Performed By: #### MILTON BENOIT #### [facility] [address] [place] [address] Dr. Manfred Brooks Urea nitrogen/Creatinine [Mass ratio] 23.6 mg/mg Normal [facility] Comment on above: Performed By: #### MILTON BENOIT #### [facility] [address] [place] [address] Dr. Manfred Brooks BNPon 05-16-2022 Natriuretic peptide B (Bld) [Mass/Vol] 322.0 pg/mL Normal <=1,800.0 [facility] Comment on above: Performed By: #### B MP, HSTROPN, CK #### [facility] [address] [place] [address] Dr. Manfred Brooks CARDIAC TELMA ADMITon 022 CK [Catalytic activity/Vol] 109 U/L Normal 26-192 [facility] Comment on above: Performed By: #### B MP, HSTROPN, CK #### [facility] [address] [place] [address] Dr. Manfred Brooks CK.MB [Mass/Vol] 1.43 ng/mL Normal <=3.60 [facility] Comment on above: Performed By: #### B MP, HSTROPN, CK #### [facility] [address] [place] [address] Dr. Manfred Brooks HSTROP 19.6 pg/mL Normal 4.0-51.3 [facility] Comment on above: Result Comment: CUT- OFF POINTS HAVE BEEN ESTABLISHED BASED ON THE FOURTH UNIVERSAL DEFINITIONS OF MYOCARDIAL INFARCTION. THE UPPER REFERENCE LIMIT (URL) OF TROPONIN, DEFINED THE 99TH PERCENTILE OF cTnI DISTRIBUTION IN A REFERENCE POPULATION, HAS BEEN CONFIRMED THE DECISION THRESHOLD FOR SC DIAGNOSIS. Performed By: #### B MP, HSTROPN, CK #### [facility] [address] [place] [address] Dr. Manfred Brooks MAHOGANY 71 ng/mL Normal 9-82 [facility] Comment on above: Performed By: #### B MP, HSTROPN, CK #### [facility] [address] [place] [address] Dr. Manfred Brooks CBC AUTO DIFFon 05-16-2022 BASO # 0.1 103/ul Normal 0.0-0.1 [facility] Comment on above: Performed By: #### B MP, HSTROPN, CK #### [facility] [address] [place] [address] Dr. Manfred Brooks Basophils/100 WBC (Bld) 1.4 % Normal 0.2-2.0 [facility] Comment on above: Performed By: #### B MP, HSTROPN, CK #### [facility] [address] [place] [address] Dr. Manfred Brooks EO # 0.1 103/ul Normal 0.0-0.7 [facility] Comment on above: Performed By: #### B MP, HSTROPN, CK #### [facility] [address] [place] [address] Dr. Manfred Brooks Eosinophils/100 WBC (Bld) 2.3 % Normal 0.9-7.0 [facility] Comment on above: Performed By: #### B MP, HSTROPN, CK #### [facility] [address] [place] [address] Dr. Manfred Brooks Erythrocyte distribution width (RBC) [Ratio] 14.4 % Normal 11.0-15.0 [facility] Comment on above: Performed By: #### B MP, HSTROPN, CK #### [facility] [address] [place] [address] Dr. Manfred Brooks Hematocrit (Bld) [Volume fraction] 38.1 % Normal 36.0-48.0 [facility] Comment on above: Performed By: #### B MP, HSTROPN, CK #### [facility] [address] [place] [address] Dr. Manfred Brooks Hemoglobin (Bld) [Mass/Vol] 12.1 g/dL Normal 12.0-16.0 [facility] Comment on above: Performed By: #### B MP, HSTROPN, CK #### [facility] [address] [place] [address] Dr. Manfred Brooks IG # 0.01 10e3/ul Normal 0.00-0.03 [facility] Comment on above: Performed By: #### B MP, HSTROPN, CK #### [facility] [address] [place] [address] Dr. Manfred Brooks IG % 0.2 % Normal 0.0-0.5 [facility] Comment on above: Performed By: #### B MP, HSTROPN, CK #### [facility] [address] [place] [address] Dr. Manfred Brooks LYMPH # 1.0 103/ul Critically low 1.2-3.8 [facility] Comment on above: Performed By: #### B MP, HSTROPN, CK #### [facility] [address] [place] [address] Dr. Manfred Brooks Lymphocytes/100 WBC (Bld) 22.4 % Normal 20.5-60.0 [facility] Comment on above: Performed By: #### B MP, HSTROPN, CK #### [facility] [address] [place] [address] Dr. Manfred Brooks MANUAL DIFF REQ NO Normal [facility] Comment on above: Performed By: #### B MP, HSTROPN, CK #### [facility] [address] [place] [address] Dr. Manfred Brooks MCH (RBC) [Entitic mass] 28.9 pg Normal 26.7-34.0 [facility] Comment on above: Performed By: #### B MP, HSTROPN, CK #### [facility] [address] [place] [address] Dr. Manfred Brooks MCHC (RBC) [Mass/Vol] 31.8 g/dL Normal 29.9-35.2 [facility] Comment on above: Performed By: #### B MP, HSTROPN, CK #### [facility] [address] [place] [address] Dr. Manfred Brooks MCV (RBC) [Entitic vol] 90.9 fL Normal 81.0-99.0 [facility] Comment on above: Performed By: #### B MP, HSTROPN, CK #### [facility] [address] [place] [address] Dr. Manfred Brooks MONO # 0.5 103/ul Normal 0.3-0.8 [facility] Comment on above: Performed By: #### B MP, HSTROPN, CK #### [facility] [address] [place] [address] Dr. Manfred Brooks Monocytes/100 WBC (Bld) 10.2 % Normal 1.7-12.0 [facility] Comment on above: Performed By: #### B MP, HSTROPN, CK #### [facility] [address] [place] [address] Dr. Manfred Brooks NEUT # 2.8 103/ul Normal 1.4-6.5 [facility] Comment on above: Performed By: #### B MP, HSTROPN, CK #### [facility] [address] [place] [address] Dr. Manfred Brooks Neutrophils/100 WBC (Bld) 63.5 % Normal 43.0-75.0 [facility] Comment on above: Performed By: #### B MANN HSTROPN, CK #### [facility] [address] [place] [address] Dr. Manfred Brooks Platelet mean volume (Bld) [Entitic vol] 10.1 fL Normal 9.5-13.5 [facility] Comment on above: Performed By: #### B MANN HSTROPN, CK #### [facility] [address] [place] [address] Dr. Manfred Brooks PLT 268 103/ul Normal 150-450 [facility] Comment on above: Performed By: #### B MANN HSTROPN, CK #### [facility] [address] [place] [address] Dr. Manfred Brooks RBC 4.19 106/ul Critically low 4.20-5.40 [facility] Comment on above: Performed By: #### B MANN HSTROPJim, CK #### [facility] [address] [place] [address] Dr. Manfred Brooks WBC 4.4 103/ul Normal 4.0-11.0 [facility] Comment on above: Performed By: #### B VENESSA DARNELLTROPJim, CK #### [facility] [address] [place] [address] STROKE HEAD WOon [...] MCKINLEY TAYLOR Date: 2022-05-16 12:01 Normal The [facility] CTA NECK WO W CONon 05-16-20 22 [...] by: JOHAN MCKEON Date: 2022-05-16 13:32 Normal [facility] CULTURE URINEon 05-16-2022 CULTURE URINE Culture Observations : LIGHT GROWTH OF MIXED GENITAL BETO. NO POTENTIAL PATHOGENS SEEN. Normal [facility] Comment on above: Performed By: #### B MP, HSTROPJim, CK #### [facility] [address] [place] [address] Dr. Manfred Brooks Covid-19 PCR ([facility])on SARS-CoV-2 (COVID-19) RNA DAMIR+probe Ql (Unsp spec) Not detected Normal NOT DETECTED [facility] Comment on above: Result Comment: When diagnostic [...] for this test is supported by the [employer] of Health and Human Service's declaration that [...] used). Performed By: #### C VDTBH #### [facility] [address] [place] [address] Dr. Manfred Brooks DIGOXINon 05-16-2022 DIG 2.3 ng/mL Critically high 0.9-2.0 [facility] Comment on above: Result Comment: repe ated Performed By: #### B MP, HSTROPN, CK #### [facility] [address] [place] [address] Dr. Manfred Brooks ER URINE PROFILEon 2 Bilirubin Ql (U) Negative Normal NEGATIVE [facility] Comment on above: Performed By: #### E ANU HOGANRO #### [facility] [address] [place] [address] Dr. Manfred Brooks Clarity (U) CLEAR Normal CLEAR [facility] Comment on above: Performed By: #### E SAMIRA UMICRO #### [facility] [address] [place] [address] Dr. Manfred Brooks Color (U) LT. YELLOW Normal YELLOW [facility] Comment on above: Performed By: #### E SAMIRA UMICRO #### [facility] [address] [place] [address] Dr. Manfred Brooks ERUAHD A micrscopic examination will be performed if indicated. Normal [facility] Comment on above: Performed By: #### Nikolas HOGAN UMICRO #### [facility] [address] [address] [address] Manfred Brooks Glucose Ql (U) Negative Normal NEGATIVE [facility] Comment on above: Performed By: #### Nikolas HOGAN UMICRO #### [facility] [address] [place] [address] Dr. Manfred Brooks Hemoglobin Ql (U) Negative Normal NEGATIVE [facility] Comment on above: Performed By: #### Nikolas HOGAN UMICRO #### [facility] [address] [place] [address] Dr. Manfred Brooks Ketones Ql (U) Negative Normal NEGATIVE [facility] Comment on above: Performed By: #### Nikolas HOGAN UMICRO #### [facility] [address] [place] [address] Dr. Manfred Brooks LEUKOCYTES MODERATE Abnormal NEGATIVE [facility] Comment on above: Performed By: #### SUBHASH BENOITICRO #### [facility] [address] [place] [address] Dr. Manfred Brooks Nitrite Ql (U) Negative Normal NEGATIVE [facility] Comment on above: Performed By: #### SUBHASH BENOITICRO #### [facility] [address] [place] [address] Dr. Manfred Brooks pH (U) 6.5 [pH] Normal 5-9 [facility] Comment on above: Performed By: #### ANU BENOITRO #### [facility] [address] [place] [address] Dr. Manfred Brooks SPEC GRAVITY <=1.005 Abnormal 1.005-<=1.025 [facility] Comment on above: Performed By: #### SUBHASH BENOITICRO #### [facility] [address] [place] [address] Dr. Manfred Brooks UA PROTEIN Negative Normal NEGATIVE/ TRACE [facility] Comment on above: Performed By: #### ANU BENOITRO #### [facility] [address] [place] [address] Dr. Manfred Brooks UR MICRO IND INDICATED Normal [facility] Comment on above: Performed By: #### E ANU HOGANRO #### [facility] [address] [place] [address] Dr. Manfred Brooks Urobilinogen Qn (U) 0.2 {Antionette'U}/dL Normal 0.2 - 1. 0 [facility] Comment on above: Performed By: #### ANU BENOITRO #### [facility] [address] [place] [address] Dr. Manfred Brooks POINT OF CARE GLUCOSEon Glucose [Mass/Vol] 109 mg/dL Critically high 74-106 [facility] Comment on above: Performed By: #### P OCGLUC #### [facility] [address] [place] [address] Dr. Manfred Brooks PROF 14(COMP METB)on 022 Albumin [Mass/Vol] 3.9 g/dL Normal 3.4-5.0 [facility] Comment on above: Performed By: #### B MP, HSTROPN, CK #### [facility] [address] [place] [address] Dr. Manfred Brooks Albumin/Globulin [Mass ratio] 1.3 {ratio} Normal [facility] Comment on above: Performed By: #### B MP, HSTROPN, CK #### [facility] [address] [place] [address] Dr. Manfred Brooks ALP [Catalytic activity/Vol] 58 U/L Normal 46-116 [facility] Comment on above: Performed By: #### B MP, HSTROPN, CK #### [facility] [address] [place] [address] Dr. Manfred Brooks ALT [Catalytic activity/Vol] 28 U/L Normal 14-59 [facility] Comment on above: Performed By: #### B MP, HSTROPN, CK #### [facility] [address] [place] [address] Dr. Manfred Brooks Anion gap [Moles/Vol] 11.4 mmol/L Normal [facility] Comment on above: Performed By: #### B MP, HSTROPN, CK #### [facility] [address] [place] [address] Dr. Manfred Brooks AST [Catalytic activity/Vol] 18 U/L Normal 15-37 [facility] Comment on above: Performed By: #### B MP, HSTROPN, CK #### [facility] [address] [place] [address] Dr. Manfred Brooks Bilirubin [Mass/Vol] 0.6 mg/dL Normal 0.2-1.0 [facility] Comment on above: Performed By: #### B MP, HSTROPN, CK #### [facility] [address] [place] [address] Dr. Manfred Brooks Calcium [Mass/Vol] 8.8 mg/dL Normal 8.5-10.1 [facility] Comment on above: Performed By: #### B MP, HSTROPN, CK #### [facility] [address] [place] [address] Dr. Manfred Brooks Chloride [Moles/Vol] 106 mmol/L Normal 98-107 [facility] Comment on above: Performed By: #### B MANN HSTROPN, CK #### [facility] [address] [place] [address] Dr. Manfred Brooks CO2 [Moles/Vol] 31.3 mmol/L Normal 21.0-32.0 [facility] Comment on above: Performed By: #### B MP, HSTROPN, CK #### [facility] [address] [place] [address] Dr. Manfred Brooks Creatinine [Mass/Vol] 0.76 mg/dL Normal 0.55-1.02 [facility] Comment on above: Performed By: #### B MP, HSTROPN, CK #### [facility] [address] [place] [address] Dr. Manfred Brooks EGFR-AF MICRONESIAN >60 Normal >=60 [facility] Comment on above: Performed By: #### B MP, HSTROPN, CK #### [facility] [address] [address] [address] Manfred Brooks EGFR-NON AF MICRONESIAN >60 Normal >=60 [facility] Comment on above: Performed By: #### B MP, HSTROPN, CK #### [facility] [address] [address] [address] Manfred Brooks Globulin (S) [Mass/Vol] 2.9 g/dL Normal [facility] Comment on above: Performed By: #### B MP, HSTROPN, CK #### [facility] [address] [address] [address] Manfred Brooks Glucose [Mass/Vol] 122 mg/dL Critically high 74-106 [facility] Comment on above: Performed By: #### B MP, HSTROPN, CK #### [facility] [address] [place] [address] Dr. Manfred Brooks Potassium [Moles/Vol] 3.7 mmol/L Normal 3.5-5.1 [facility] Comment on above: Performed By: #### B MP, HSTROPN, CK #### [facility] [address] [address] [address] Manfred Brooks Protein [Mass/Vol] 6.8 g/dL Normal 6.4-8.2 [facility] Comment on above: Performed By: #### B MP, HSTROPN, CK #### [facility] [address] [address] [address] Manfred Brooks Sodium [Moles/Vol] 145 mmol/L Normal 136-145 [facility] Comment on above: Performed By: #### B MP, HSTROPN, CK #### [facility] [address] [address] [address] Manfred Brooks Urea nitrogen [Mass/Vol] 18.0 mg/dL Normal 7.0-18.0 [facility] Comment on above: Performed By: #### B MP, HSTROPN, CK #### [facility] [address] [address] [address] Manfred Brooks Urea nitrogen/Creatinine [Mass ratio] 23.7 mg/mg Normal [facility] Comment on above: Performed By: #### B JAMILAH DARNELL CK #### [facility] [address] [place] [address] Dr. Manfred Brooks PROTIMEon 05-16-2022 INR Coag (PPP) [Relative time] 1.08 {INR} Normal [facility] Comment on above: Performed By: #### MILTON BENOIT #### [facility] [address] [place] [address] Dr. Manfred Brooks INR GUIDELINES SEE BELOW Normal [facility] Comment on above: Result Comment: JUSTYN RED INR: 2.0 - 3.0 CONDITIONS NOT LISTED BELOW 2.5 - 3.5 FOR PROSTHETIC HEART VALVE REPLACEMENT 2.5 - 3.5 RECURRENT THROMBOSIS Performed By: #### MILTON BENOIT #### [facility] [address] [place] [address] Dr. Manfred Brooks PT Coag (PPP) [Time] 11.6 s Normal 9.0-11.6 [facility] Comment on above: Performed By: #### MILTON BENOIT #### [facility] [address] [place] [address] Dr. Manfred Brooks PTTon 05-16-2022 aPTT Coag (Bld) [Time] 28.1 s Normal 22.3-36.2 [facility] Comment on above: Performed By: #### MILTON BENOIT #### [facility] [address] [place] [address] Dr. Manfred Brooks TSHon 05-16-2022 TSH 0.320 uIU/mL Critically low 0.358-3.740 [facility] Comment on above: Performed By: #### B JAMILAH DARNELL CK #### [facility] [address] [place] [address] Dr. Manfred Brooks URINE MICROSCOPIC ONLYon BACTERIA TRACE Abnormal NONE SEEN [facility] Comment on above: Performed By: #### MILTON BENOIT #### [facility] [address] [place] [address] Dr. Manfred Brooks Bacteria identified Cx Nom (U) INDICATED Normal [facility] Comment on above: Performed By: #### Nikolas HOGAN UMICRO #### [facility] [address] [place] [address] Dr. Manfred Brooks CAST NONE SEEN Normal NONE SEEN [facility] Comment on above: Performed By: #### E SAMIRA UMICRO #### [facility] [address] [place] [address] Dr. Manfred Brooks Crystals LM Nom (Urine sed) NONE SEEN Normal NONE SEEN [facility] Comment on above: Performed By: #### Nikolas HOGAN UMICRO #### [facility] [address] [place] [address] Dr. Manfred Brooks Epithelial cells LM Ql (Urine sed) MODERATE Abnormal NONE SEEN /RARE [facility] Comment on above: Performed By: #### Nikolas HOGAN UMICRO #### [facility] [address] [place] [address] Dr. Manfred Brooks MUCOUS NONE SEEN Normal NONE SEEN [facility] Comment on above: Performed By: #### Nikolas HOGAN UMICRO #### [facility] [address] [place] [address] Dr. Manfred Brooks RBC NONE SEEN Abnormal 0-2 [facility] Comment on above: Performed By: #### Nikolas HOGAN UMICRO #### [facility] [address] [place] [address] Dr. Manfred Brooks WBC 10-20 Abnormal NONE SEEN [facility] Comment on above: Performed By: #### Nikolas HOGAN UMICRO #### [facility] [address] [place] [address] Dr. Manfred Brooks XR CHEST 1 Von [...] ALEJANDRO BLACKMAN Date: 2022-05-16 12:58 Normal [facility] T3, TOTAL (TRIIODOTHYRONINE) on 04-22-2022 T3, TOTAL 85 ng/dL Normal 71-180 [facility] Comment on above: Performed By: #### C VDTBH #### [facility] [address] [place] [address] Dr. Manfred Brooks BNPon 04-21-2022 Natriuretic peptide B (Bld) [Mass/Vol] 486.0 pg/mL Normal <=1,800.0 [facility] Comment on above: Performed By: #### B PRESSURE TESTER OPERATOR, CMP #### [facility] [address] [place] [address] Dr. Manfred Brooks CBC AUTO DIFFon 04-21-2022 BASO # 0.1 103/ul Normal 0.0-0.1 [facility] Comment on above: Performed By: #### SUBHASH BENOITICRO #### [facility] [address] [place] [address] Dr. Manfred Brooks Basophils/100 WBC (Bld) 1.0 % Normal 0.2-2.0 [facility] Comment on above: Performed By: #### Nikolas HOGAN UMICRO #### [facility] [address] [place] [address] Dr. Manfred Brooks EO # 0.2 103/ul Normal 0.0-0.7 [facility] Comment on above: Performed By: #### Nikolas HOGAN UMICRO #### [facility] [address] [place] [address] Dr. Manfred Brooks Eosinophils/100 WBC (Bld) 2.7 % Normal 0.9-7.0 [facility] Comment on above: Performed By: #### Nikolas HOGAN UMICRO #### [facility] [address] [place] [address] Dr. Manfred Brooks Erythrocyte distribution width (RBC) [Ratio] 14.2 % Normal 11.0-15.0 [facility] Comment on above: Performed By: #### MILTON BENOIT #### [facility] [address] [place] [address] Dr. Manfred Brooks Hematocrit (Bld) [Volume fraction] 38.7 % Normal 36.0-48.0 [facility] Comment on above: Performed By: #### MILTON BENOIT #### [facility] [address] [place] [address] Dr. Manfred Brooks Hemoglobin (Bld) [Mass/Vol] 12.1 g/dL Normal 12.0-16.0 [facility] Comment on above: Performed By: #### MILTON BENOIT #### [facility] [address] [place] [address] Dr. Manfred Brooks IG # 0.02 10e3/ul Normal 0.00-0.03 [facility] Comment on above: Performed By: #### MILTON BENOIT #### [facility] [address] [place] [address] Dr. Manfred Brooks IG % 0.3 % Normal 0.0-0.5 [facility] Comment on above: Performed By: #### MILTON BENOIT #### [facility] [address] [place] [address] Dr. Manfred Brooks LYMPH # 2.6 103/ul Normal 1.2-3.8 [facility] Comment on above: Performed By: #### MILTON BENOIT #### [facility] [address] [place] [address] Dr. Manfred Brooks Lymphocytes/100 WBC (Bld) 36.7 % Normal 20.5-60.0 [facility] Comment on above: Performed By: #### MILTON BENOIT #### [facility] [address] [place] [address] Dr. Manfred Brooks MANUAL DIFF REQ NO Normal [facility] Comment on above: Performed By: #### ANU BENOITRO #### [facility] [address] [place] [address] Dr. Manfred Brooks MCH (RBC) [Entitic mass] 29.2 pg Normal 26.7-34.0 [facility] Comment on above: Performed By: #### Nikolas HOGAN, UMICRO #### [facility] [address] [place] [address] Dr. Manfred Brooks MCHC (RBC) [Mass/Vol] 31.3 g/dL Normal 29.9-35.2 [facility] Comment on above: Performed By: #### E JAMILAR, UMICRO #### [facility] [address] [place] [address] Dr. Manfred Brooks MCV (RBC) [Entitic vol] 93.5 fL Normal 81.0-99.0 [facility] Comment on above: Performed By: #### Nikolas HOGAN, UMICRO #### [facility] [address] [place] [address] Dr. Manfred Brooks MONO # 0.7 103/ul Normal 0.3-0.8 [facility] Comment on above: Performed By: #### Nikolas HOGAN, UMICRO #### [facility] [address] [place] [address] Dr. Manfred Brooks Monocytes/100 WBC (Bld) 9.5 % Normal 1.7-12.0 [facility] Comment on above: Performed By: #### Nikolas HOGAN, UMICRO #### [facility] [address] [place] [address] Dr. Manfred Brooks NEUT # 3.5 103/ul Normal 1.4-6.5 [facility] Comment on above: Performed By: #### E SAMIRA, UMICRO #### [facility] [address] [place] [address] Dr. Manfred Brooks Neutrophils/100 WBC (Bld) 49.8 % Normal 43.0-75.0 [facility] Comment on above: Performed By: #### Nikolas HOGAN, UMICRO #### [facility] [address] [place] [address] Dr. Manfred Brooks Platelet mean volume (Bld) [Entitic vol] 10.5 fL Normal 9.5-13.5 [facility] Comment on above: Performed By: #### Nikolas HOGAN UMICRO #### [facility] [address] [place] [address] Dr. Manfred Brooks PLT 286 103/ul Normal 150-450 [facility] Comment on above: Performed By: #### E RUAlin UMICRO #### [facility] [address] [address] [address] Manfred Brooks RBC 4.14 106/ul Critically low 4.20-5.40 [facility] Comment on above: Performed By: #### Nikolas HOGAN UMICRO #### [facility] [address] [place] [address] Dr. Manfred Brooks WBC 7.0 103/ul Normal 4.0-11.0 [facility] Comment on above: Performed By: #### Nikolas HOGAN UMICRO #### [facility] [address] [place] [address] Dr. Manfred Brooks DIGOXINon 04-21-2022 DIG <0.2 Critically low 0.9-2.0 [facility] Comment on above: Performed By: #### B MP, HSTROPN, CK #### [facility] [address] [place] [address] Dr. Manfred Brooks ECHOCARDIO M/2D COMPLETEon 0 04-21-2022 ECHOCARDIO M/2D COMPLETE Patient: BETTY CAMARENA Exam Date: 04/21/2022 : 1940 Gender:F Ordering : DR CAM BATES . Admission #: [id number] Family : DR GLORIA SALCEDO . Order #: [id number] CLICK HERE TO VIEW EXAM ECHOCARDIOGRAM REPORT [...] Alejandre M.D. on 04/21/2022 at 19:20 Normal [facility] PROF 14(COMP METB)on 022 Albumin [Mass/Vol] 3.4 g/dL Normal 3.4-5.0 [facility] Comment on above: Performed By: #### B PRESSURE TESTER OPERATOR, CMP #### [facility] [address] [place] [address] Dr. Manfred Brooks Albumin/Globulin [Mass ratio] 1.2 {ratio} Normal [facility] Comment on above: Performed By: #### B PRESSURE TESTER OPERATOR, CMP #### [facility] [address] [address] [address] Manfred Brooks ALP [Catalytic activity/Vol] 62 U/L Normal 46-116 [facility] Comment on above: Performed By: #### B PRESSURE TESTER OPERATOR, CMP #### [facility] [address] [address] [address] Manfred Brooks ALT [Catalytic activity/Vol] 24 U/L Normal 14-59 [facility] Comment on above: Performed By: #### B PRESSURE TESTER OPERATOR, CMP #### [facility] [address] [address] [address] Manfred Brooks Anion gap [Moles/Vol] 10.4 mmol/L Normal [facility] Comment on above: Performed By: #### B PRESSURE TESTER OPERATOR, CMP #### [facility] [address] [address] [address] Manfred Brooks AST [Catalytic activity/Vol] 9 U/L Critically low 15-37 [facility] Comment on above: Performed By: #### B PRESSURE TESTER OPERATOR, CMP #### [facility] [address] [place] [address] Dr. Manfred Brooks Bilirubin [Mass/Vol] 0.3 mg/dL Normal 0.2-1.0 [facility] Comment on above: Performed By: #### B PRESSURE TESTER OPERATOR, CMP #### [facility] [address] [place] [address] Dr. Manfred Brooks Calcium [Mass/Vol] 8.5 mg/dL Normal 8.5-10.1 [facility] Comment on above: Performed By: #### B PRESSURE TESTER OPERATOR, CMP #### [facility] [address] [place] [address] Dr. Manfred Brooks Chloride [Moles/Vol] 109 mmol/L Critically high 98-107 [facility] Comment on above: Performed By: #### B PRESSURE TESTER OPERATOR, CMP #### [facility] [address] [place] [address] Dr. Manfred Brooks CO2 [Moles/Vol] 28.5 mmol/L Normal 21.0-32.0 [facility] Comment on above: Performed By: #### B PRESSURE TESTER OPERATOR, CMP #### [facility] [address] [place] [address] Dr. Manfred Brooks Creatinine [Mass/Vol] 0.83 mg/dL Normal 0.55-1.02 [facility] Comment on above: Performed By: #### B PRESSURE TESTER OPERATOR, CMP #### [facility] [address] [place] [address] Dr. Manfred Brooks EGFR-AF MICRONESIAN >60 Normal >=60 [facility] Comment on above: Performed By: #### B PRESSURE TESTER OPERATOR, CMP #### [facility] [address] [address] [address] Manfred Brooks EGFR-NON AF MICRONESIAN >60 Normal >=60 [facility] Comment on above: Performed By: #### B PRESSURE TESTER OPERATOR, CMP #### [facility] [address] [address] [address] Manfred Brooks Globulin (S) [Mass/Vol] 2.8 g/dL Normal [facility] Comment on above: Performed By: #### B PRESSURE TESTER OPERATOR, CMP #### [facility] [address] [address] [address] Manfred Brooks Glucose [Mass/Vol] 107 mg/dL Critically high 74-106 [facility] Comment on above: Performed By: #### B PRESSURE TESTER OPERATOR, CMP #### [facility] [address] [place] [address] Dr. Manfred Brooks Potassium [Moles/Vol] 3.9 mmol/L Normal 3.5-5.1 [facility] Comment on above: Performed By: #### B PRESSURE TESTER OPERATOR, CMP #### [facility] [address] [address] [address] Manfred Brooks Protein [Mass/Vol] 6.2 g/dL Critically low 6.4-8.2 [facility] Comment on above: Performed By: #### B PRESSURE TESTER OPERATOR, CMP #### [facility] [address] [address] [address] Manfred Brooks Sodium [Moles/Vol] 144 mmol/L Normal 136-145 [facility] Comment on above: Performed By: #### B PRESSURE TESTER OPERATOR, CMP #### [facility] [address] [address] [address] Manfred Brooks Urea nitrogen [Mass/Vol] 23.0 mg/dL Critically high 7.0-18.0 [facility] Comment on above: Performed By: #### B PRESSURE TESTER OPERATOR, CMP #### [facility] [address] [address] [address] Manfred Brooks Urea nitrogen/Creatinine [Mass ratio] 27.7 mg/mg Normal [facility] Comment on above: Performed By: #### B PRESSURE TESTER OPERATOR, CMP #### [facility] [address] [place] [address] Dr. Manfred Brooks BNPon 04-20-2022 Natriuretic peptide B (Bld) [Mass/Vol] 199.0 pg/mL Normal <=1,800.0 [facility] Comment on above: Performed By: #### Nikolas HOGAN UMICRO #### [facility] [address] [place] [address] Dr. Manfred Brooks CARDIAC TELMA 3-6on 2 CK [Catalytic activity/Vol] 55 U/L Normal 26-192 [facility] Comment on above: Performed By: #### ANU BENOITRO #### [facility] [address] [place] [address] Dr. Manfred Brooks CK.MB [Mass/Vol] 1.69 ng/mL Normal <=3.60 [facility] Comment on above: Performed By: #### Nikolas HOGAN UMАЛЕКСАНДРRO #### [facility] [address] [place] [address] Dr. Manfred CLIFFORDTROP 37.5 pg/mL Normal 4.0-51.3 [facility] Comment on above: Result Comment: CUT- OFF POINTS HAVE BEEN ESTABLISHED BASED ON THE FOURTH UNIVERSAL DEFINITIONS OF MYOCARDIAL INFARCTION. THE UPPER REFERENCE LIMIT (URL) OF TROPONIN, DEFINED THE 99TH PERCENTILE OF cTnI DISTRIBUTION IN A REFERENCE POPULATION, HAS BEEN CONFIRMED THE DECISION THRESHOLD FOR SC DIAGNOSIS. Performed By: #### ANU BENOITRO #### [facility] [address] [place] [address] Dr. Manfred Brooks CK [Catalytic activity/Vol] 54 U/L Normal 26-192 [facility] Comment on above: Performed By: #### Nikolas HOGAN UMICRO #### [facility] [address] [place] [address] Dr. Manfred Brooks CK.MB [Mass/Vol] 1.12 ng/mL Normal <=3.60 [facility] Comment on above: Performed By: #### Nikolas HOGAN UMICRO #### [facility] [address] [place] [address] Dr. Manfred Brooks HSTROP 27.5 pg/mL Normal 4.0-51.3 [facility] Comment on above: Result Comment: CUT- OFF POINTS HAVE BEEN ESTABLISHED BASED ON THE FOURTH UNIVERSAL DEFINITIONS OF MYOCARDIAL INFARCTION. THE UPPER REFERENCE LIMIT (URL) OF TROPONIN, DEFINED THE 99TH PERCENTILE OF cTnI DISTRIBUTION IN A REFERENCE POPULATION, HAS BEEN CONFIRMED THE DECISION THRESHOLD FOR SC DIAGNOSIS. Performed By: #### MILTON BENOIT #### [facility] [address] [place] [address] Dr. Manfred Brooks CARDIAC TELMA ADMITon 022 CK [Catalytic activity/Vol] 64 U/L Normal 26-192 [facility] Comment on above: Performed By: #### MILTON BENOIT #### [facility] [address] [place] [address] Dr. Manfred Brooks CK.MB [Mass/Vol] 1.12 ng/mL Normal <=3.60 [facility] Comment on above: Performed By: #### MILTON BENOIT #### [facility] [address] [place] [address] Dr. Manfred Brooks HSTROP 13.4 pg/mL Normal 4.0-51.3 [facility] Comment on above: Result Comment: CUT- OFF POINTS HAVE BEEN ESTABLISHED BASED ON THE FOURTH UNIVERSAL DEFINITIONS OF MYOCARDIAL INFARCTION. THE UPPER REFERENCE LIMIT (URL) OF TROPONIN, DEFINED THE 99TH PERCENTILE OF cTnI DISTRIBUTION IN A REFERENCE POPULATION, HAS BEEN CONFIRMED THE DECISION THRESHOLD FOR SC DIAGNOSIS. Performed By: #### MILTON BENOIT #### [facility] [address] [place] [address] Dr. Manfred Brooks MAHOGANY 38 ng/mL Normal 9-82 [facility] Comment on above: Performed By: #### MILTON BENOIT #### [facility] [address] [place] [address] Dr. Manfred Brooks CBC AUTO DIFFon 04-20-2022 BASO # 0.1 103/ul Normal 0.0-0.1 [facility] Comment on above: Performed By: #### MILTON BENOIT #### [facility] [address] [place] [address] Dr. Manfred Brooks Basophils/100 WBC (Bld) 1.0 % Normal 0.2-2.0 [facility] Comment on above: Performed By: #### SUBHASH BENOITICRO #### [facility] [address] [place] [address] Dr. Manfred Brooks EO # 0.2 103/ul Normal 0.0-0.7 [facility] Comment on above: Performed By: #### Nikolas HOGAN UMICRO #### [facility] [address] [place] [address] Dr. Manfred Brooks Eosinophils/100 WBC (Bld) 1.8 % Normal 0.9-7.0 [facility] Comment on above: Performed By: #### Nikolas HOGAN UMICRO #### [facility] [address] [place] [address] Dr. Manfred Brooks Erythrocyte distribution width (RBC) [Ratio] 14.2 % Normal 11.0-15.0 [facility] Comment on above: Performed By: #### SUBHASH BENOITICRO #### [facility] [address] [place] [address] Dr. Manfred Brooks Hematocrit (Bld) [Volume fraction] 43.5 % Normal 36.0-48.0 [facility] Comment on above: Performed By: #### Nikolas HOGAN UMICRO #### [facility] [address] [place] [address] Dr. Manfred Brooks Hemoglobin (Bld) [Mass/Vol] 13.9 g/dL Normal 12.0-16.0 [facility] Comment on above: Performed By: #### Nikolas HOGAN UMICRO #### [facility] [address] [place] [address] Dr. Manfred Brooks IG # 0.03 10e3/ul Normal 0.00-0.03 [facility] Comment on above: Performed By: #### Nikolas HOGAN UMICRO #### [facility] [address] [place] [address] Dr. Manfred Brooks IG % 0.3 % Normal 0.0-0.5 [facility] Comment on above: Performed By: #### ANU BENOITRO #### [facility] [address] [place] [address] Dr. Manfred Brooks LYMPH # 2.6 103/ul Normal 1.2-3.8 [facility] Comment on above: Performed By: #### ANU BENOITRO #### [facility] [address] [place] [address] Dr. Manfred Brooks Lymphocytes/100 WBC (Bld) 29.8 % Normal 20.5-60.0 [facility] Comment on above: Performed By: #### ANU BENOITRO #### [facility] [address] [place] [address] Dr. Manfred Brooks MANUAL DIFF REQ NO Normal [facility] Comment on above: Performed By: #### ANU BENOITRO #### [facility] [address] [place] [address] Dr. Manfred Brooks MCH (RBC) [Entitic mass] 29.7 pg Normal 26.7-34.0 [facility] Comment on above: Performed By: #### ANU BENOITRO #### [facility] [address] [place] [address] Dr. Manfred Brooks MCHC (RBC) [Mass/Vol] 32.0 g/dL Normal 29.9-35.2 [facility] Comment on above: Performed By: #### ANU BENOITRO #### [facility] [address] [place] [address] Dr. Manfred Brooks MCV (RBC) [Entitic vol] 92.9 fL Normal 81.0-99.0 [facility] Comment on above: Performed By: #### ANU BENOITRO #### [facility] [address] [place] [address] Dr. Manfred Brooks MONO # 0.8 103/ul Normal 0.3-0.8 [facility] Comment on above: Performed By: #### ANU BENOITRO #### [facility] [address] [place] [address] Dr. Manfred Brooks Monocytes/100 WBC (Bld) 9.6 % Normal 1.7-12.0 [facility] Comment on above: Performed By: #### SUBHASH BENOITICRO #### [facility] [address] [place] [address] Dr. Manfred Brooks NEUT # 5.0 103/ul Normal 1.4-6.5 [facility] Comment on above: Performed By: #### SUBHASH BENOTIICRO #### [facility] [address] [place] [address] Dr. Manfred Brooks Neutrophils/100 WBC (Bld) 57.5 % Normal 43.0-75.0 [facility] Comment on above: Performed By: #### Nikolas HOGAN UMICRO #### [facility] [address] [place] [address] Dr. Manfred Brooks Platelet mean volume (Bld) [Entitic vol] 10.1 fL Normal 9.5-13.5 [facility] Comment on above: Performed By: #### Nikolas HOGAN UMICRO #### [facility] [address] [place] [address] Dr. Manfred Brooks PLT 354 103/ul Normal 150-450 [facility] Comment on above: Performed By: #### Nikolas HOGAN UMICRO #### [facility] [address] [place] [address] Dr. Manfred Brooks RBC 4.68 106/ul Normal 4.20-5.40 [facility] Comment on above: Performed By: #### Nikolas HOGAN UMICRO #### [facility] [address] [place] [address] Dr. Manfred Brooks WBC 8.8 103/ul Normal 4.0-11.0 [facility] Comment on above: Performed By: #### Nikolas HOGAN UMICRO #### [facility] [address] [place] [address] Dr. Manfred Brooks CULTURE URINEon 04-20-2022 CULTURE URINE Culture Observations : LIGHT GROWTH OF MIXED GENITAL BETO. NO POTENTIAL PATHOGENS SEEN. Normal [facility] Comment on above: Performed By: #### B JAMILAH DARNELL, CK #### [facility] [address] [address] [address] Manfred Brooks Covid-19 PCR ([facility])on 04-11 SARS-CoV-2 (COVID-19) RNA DAMIR+probe Ql (Unsp spec) Not detected Normal NOT DETECTED [facility] Comment on above: Result Comment: When diagnostic [...] for this test is supported by the [employer]'s declaration that [...] By: #### B JAMILAH DARNELL, CK #### [facility] [address] [address] [address] Manfred Brooks D-DIMERon 04-20-2022 D-DIMER 0.35 mg/L FEU Normal <=0.59 [facility] Comment on above: Performed By: #### E MILTON HOGAN #### [facility] [address] [address] [address] Manfred Brooks D-DIMER COMMENTS SEE BELOW Normal [facility] Comment on above: Result Comment: Incr eases [...] hospitalization. Performed By: #### ANU BENOITRO #### [facility] [address] [place] [address] Dr. Manfred Brooks PROF CHEM 8 (BAS METB)on Anion gap [Moles/Vol] 14.1 mmol/L Normal [facility] Comment on above: Performed By: #### Nikolas HOGAN UMICRO #### [facility] [address] [place] [address] Dr. Manfred Brooks Calcium [Mass/Vol] 9.3 mg/dL Normal 8.5-10.1 [facility] Comment on above: Performed By: #### Nikolas HOGAN UMICRO #### [facility] [address] [place] [address] Dr. Manfred Brooks Chloride [Moles/Vol] 107 mmol/L Normal 98-107 [facility] Comment on above: Performed By: #### Nikolas HOGAN UMICRO #### [facility] [address] [place] [address] Dr. Manfred Brooks CO2 [Moles/Vol] 27.8 mmol/L Normal 21.0-32.0 [facility] Comment on above: Performed By: #### Nikolas HOGAN UMICRO #### [facility] [address] [place] [address] Dr. Manfred Brooks Creatinine [Mass/Vol] 0.89 mg/dL Normal 0.55-1.02 [facility] Comment on above: Performed By: #### Nikolas HOGAN UMICRO #### [facility] [address] [place] [address] Dr. Manfred Brooks EGFR-AF MICRONESIAN >60 Normal >=60 [facility] Comment on above: Performed By: #### Nikolas HOGAN UMICRO #### [facility] [address] [place] [address] Dr. Manfred Brooks EGFR-NON AF MICRONESIAN >60 Normal >=60 [facility] Comment on above: Performed By: #### Nikolas HOGAN UMICRO #### [facility] [address] [place] [address] Dr. Manfred Brooks Glucose [Mass/Vol] 129 mg/dL Critically high 74-106 [facility] Comment on above: Performed By: #### Nikolas HOGAN UMICRO #### [facility] [address] [place] [address] Dr. Manfred Brooks Potassium [Moles/Vol] 3.9 mmol/L Normal 3.5-5.1 [facility] Comment on above: Performed By: #### Nikolas HOGAN UMICRO #### [facility] [address] [place] [address] Dr. Manfred Brooks Sodium [Moles/Vol] 145 mmol/L Normal 136-145 [facility] Comment on above: Performed By: #### Nikolas HOGAN UMICRO #### [facility] [address] [place] [address] Dr. Manfred Brooks Urea nitrogen [Mass/Vol] 28.0 mg/dL Critically high 7.0-18.0 [facility] Comment on above: Performed By: #### Nikolas HOGAN UMICRO #### [facility] [address] [place] [address] Dr. Manfred Brooks Urea nitrogen/Creatinine [Mass ratio] 31.5 mg/mg Normal [facility] Comment on above: Performed By: #### Nikolas HOGAN UMICRO #### [facility] [address] [place] [address] Dr. Manfred Brooks T4on 04-20-2022 T4 [Mass/Vol] 8.10 ug/dL Normal 4.80-13.90 [facility] Comment on above: Performed By: #### B PRESSURE TESTER OPERATOR, CMP #### [facility] [address] [place] [address] Dr. Manfred Brooks TSHon 04-20-2022 TSH 0.918 uIU/mL Normal 0.358-3.740 [facility] Comment on above: Performed By: #### B PRESSURE TESTER OPERATOR, CMP #### [facility] [address] [place] [address] Dr. Manfred Brooks UA RANDOM W/MICROSCOPICon BACTERIA TRACE Abnormal NONE SEEN [facility] Comment on above: Performed By: #### C VDTBH #### [facility] [address] [place] [address] Dr. Manfred Brooks Bilirubin Ql (U) Negative Normal NEGATIVE [facility] Comment on above: Performed By: #### C VDTBH #### [facility] [address] [place] [address] Dr. Manfred Brooks CAST SEEN Abnormal NONE SEEN [facility] Comment on above: Performed By: #### C VDTBH #### [facility] [address] [place] [address] Dr. Manfred Brooks Clarity (U) CLEAR Normal CLEAR [facility] Comment on above: Performed By: #### C VDTBH #### [facility] [address] [place] [address] Dr. Manfred Brooks Color (U) LT. YELLOW Normal YELLOW [facility] Comment on above: Performed By: #### C VDTBH #### [facility] [address] [place] [address] Dr. Manfred Brooks Crystals LM Nom (Urine sed) NONE SEEN Normal NONE SEEN [facility] Comment on above: Performed By: #### C VDTBH #### [facility] [address] [place] [address] Dr. Manfred Brooks Epithelial cells LM Ql (Urine sed) MODERATE Abnormal NONE SEEN /RARE [facility] Comment on above: Performed By: #### C VDTBH #### [facility] [address] [place] [address] Dr. Manfred Brooks Glucose Ql (U) Negative Normal NEGATIVE [facility] Comment on above: Performed By: #### C VDTBH #### [facility] [address] [place] [address] Dr. Manfred Brooks Hemoglobin Ql (U) Negative Normal NEGATIVE [facility] Comment on above: Performed By: #### C VDTBH #### [facility] [address] [place] [address] Dr. Manfred Brooks HYALINE CAST RARE Normal [facility] Comment on above: Performed By: #### C VDTBH #### [facility] [address] [place] [address] Dr. Manfred Brooks Ketones Ql (U) Negative Normal NEGATIVE [facility] Comment on above: Performed By: #### C VDTBH #### [facility] [address] [place] [address] Dr. Manfred Brooks LEUKOCYTES TRACE Abnormal NEGATIVE [facility] Comment on above: Performed By: #### C VDTBH #### [facility] [address] [place] [address] Dr. Manfred Brooks MUCOUS TRACE Abnormal NONE SEEN [facility] Comment on above: Performed By: #### C VDTBH #### [facility] Laboratory [address] [place] [address] Dr. Manfred Brooks Nitrite Ql (U) Negative Normal NEGATIVE [facility] Comment on above: Performed By: #### C VDTBH #### [facility] [address] [place] [address] Dr. Manfred Brooks pH (U) 5.0 [pH] Normal 5-9 [facility] Comment on above: Performed By: #### C VDTBH #### [facility] [address] [place] [address] Dr. Manfred Brooks RBC NONE SEEN Abnormal 0-2 [facility] Comment on above: Performed By: #### C VDTBH #### [facility] [address] [place] [address] Dr. Manfred Brooks SPEC GRAVITY >=1.030 Abnormal 1.005-<=1.025 [facility] Comment on above: Performed By: #### C VDTBH #### [facility] [address] [place] [address] Dr. Manfred Brooks UA PROTEIN Negative Normal NEGATIVE/ TRACE [facility] Comment on above: Performed By: #### C VDTBH #### [facility] [address] [place] [address] Dr. Manfred Brooks Urobilinogen Qn (U) 0.2 {Antionette'U}/dL Normal 0.2 - 1. 0 [facility] Comment on above: Performed By: #### C VDTBH #### [facility] [address] [place] [address] Dr. Manfred Brooks WBC 2-5 Abnormal NONE SEEN [facility] Comment on above: Performed By: #### C VDTBH #### [facility] [address] [place] [address] Dr. Manfred Brooks XR CHEST 1 Von [...] CHE JACOBS Date: 2022-04-20 07:57 Normal [facility] INSULINon 02-05-2022 Insulin 21.9 uIU/mL Normal 2.6-24.9 [facility] Comment on above: Performed By: #### C VDTBH #### [facility] [address] [place] [address] Dr. Manfred Brooks BNPon 02-04-2022 Natriuretic peptide B (Bld) [Mass/Vol] 197.0 pg/mL Normal <=1,800.0 [facility] Comment on above: Performed By: #### MILTON BENOIT #### [facility] [address] [place] [address] Dr. Manfred Brooks CBC AUTO DIFFon 02-04-2022 BASO # 0.1 103/ul Normal 0.0-0.1 [facility] Comment on above: Performed By: #### C BC #### [facility] [address] [place] [address] Dr. Manfred Brooks Basophils/100 WBC (Bld) 1.2 % Normal 0.2-2.0 [facility] Comment on above: Performed By: #### C BC #### [facility] [address] [place] [address] Dr. Manfred Brooks EO # 0.1 103/ul Normal 0.0-0.7 [facility] Comment on above: Performed By: #### C BC #### [facility] [address] [place] [address] Dr. Manfred Brooks Eosinophils/100 WBC (Bld) 2.1 % Normal 0.9-7.0 [facility] Comment on above: Performed By: #### C BC #### [facility] [address] [place] [address] Dr. Manfred Brooks Erythrocyte distribution width (RBC) [Ratio] 14.5 % Normal 11.0-15.0 [facility] Comment on above: Performed By: #### C BC #### [facility] [address] [place] [address] Dr. Manfred Brooks Hematocrit (Bld) [Volume fraction] 42.4 % Normal 36.0-48.0 [facility] Comment on above: Performed By: #### C BC #### [facility] [address] [place] [address] Dr. Manfred Brooks Hemoglobin (Bld) [Mass/Vol] 13.4 g/dL Normal 12.0-16.0 [facility] Comment on above: Performed By: #### C BC #### [facility] [address] [place] [address] Dr. Manfred Brooks IG # 0.02 10e3/ul Normal 0.00-0.03 [facility] Comment on above: Performed By: #### C BC #### [facility] [address] [place] [address] Dr. Manfred Brooks IG % 0.3 % Normal 0.0-0.5 [facility] Comment on above: Performed By: #### C BC #### [facility] [address] [place] [address] Dr. Manfred Brooks LYMPH # 2.2 103/ul Normal 1.2-3.8 [facility] Comment on above: Performed By: #### C BC #### [facility] [address] [place] [address] Dr. Manfred Brooks Lymphocytes/100 WBC (Bld) 35.6 % Normal 20.5-60.0 [facility] Comment on above: Performed By: #### C BC #### [facility] [address] [place] [address] Dr. Manfred Brooks MANUAL DIFF REQ NO Normal [facility] Comment on above: Performed By: #### C BC #### [facility] [address] [place] [address] Dr. Manfred Brooks MCH (RBC) [Entitic mass] 29.6 pg Normal 26.7-34.0 [facility] Comment on above: Performed By: #### C BC #### [facility] [address] [place] [address] Dr. Manfred Brooks MCHC (RBC) [Mass/Vol] 31.6 g/dL Normal 29.9-35.2 [facility] Comment on above: Performed By: #### C BC #### [facility] [address] [place] [address] Dr. Manfred Brooks MCV (RBC) [Entitic vol] 93.8 fL Normal 81.0-99.0 [facility] Comment on above: Performed By: #### C BC #### [facility] [address] [place] [address] Dr. Manfred Brooks MONO # 0.6 103/ul Normal 0.3-0.8 [facility] Comment on above: Performed By: #### C BC #### [facility] [address] [place] [address] Dr. Manfred Brooks Monocytes/100 WBC (Bld) 10.4 % Normal 1.7-12.0 [facility] Comment on above: Performed By: #### C BC #### [facility] [address] [place] [address] Dr. Manfred Brooks NEUT # 3.1 103/ul Normal 1.4-6.5 [facility] Comment on above: Performed By: #### C BC #### [facility] [address] [place] [address] Dr. Manfred Brooks Neutrophils/100 WBC (Bld) 50.4 % Normal 43.0-75.0 [facility] Comment on above: Performed By: #### C BC #### [facility] [address] [address] [address] Manfred Brooks Platelet mean volume (Bld) [Entitic vol] 10.1 fL Normal 9.5-13.5 [facility] Comment on above: Performed By: #### C BC #### [facility] [address] [address] [address] Manfred Brooks PLT 310 103/ul Normal 150-450 [facility] Comment on above: Performed By: #### C BC #### [facility] [address] [address] [address] Manfred Brooks RBC 4.52 106/ul Normal 4.20-5.40 [facility] Comment on above: Performed By: #### C BC #### [facility] [address] [address] [address] Manfred Brooks WBC 6.1 103/ul Normal 4.0-11.0 [facility] Comment on above: Performed By: #### C BC #### [facility] [address] [address] [address] Manfred Brooks FREE THYROXINE INDEX T7on FTI 2.16 Normal [facility] Comment on above: Performed By: #### B MP HSTROPN, CK #### [facility] [address] [address] [address] Manfred Brooks T3U 36.0 % Normal 23.5-40.5 [facility] Comment on above: Performed By: #### B MP, HSTROPN, CK #### [facility] [address] [address] [address] Manfred Brooks T4 [Mass/Vol] 6.00 ug/dL Normal 4.80-13.90 [facility] Comment on above: Performed By: #### B MP, HSTROPN, CK #### [facility] [address] [address] [address] Manfred Brooks GLYCOHEMOGLOBIN A1Con 2021 ADA RECOMMENDATION SEE BELOW Normal [facility] Comment on above: Result Comment: ADA RECOMMENDED LIMIT 4.0 - 6.0 ADA THERAPEUTIC TARGET < 7.0 ACTION SUGGESTED > 7.0 Performed By: #### B JAMILAH DARNELL, REY #### [facility] [address] [place] [address] Dr. Manfred Brooks Glucose [Mass/Vol] 114 mg/dL Normal [facility] Comment on above: Performed By: #### B JAMILAH DARNELL, CK #### [facility] [address] [place] [address] Dr. Manfred Brooks HbA1c (Bld) [Mass fraction] 5.6 % Normal 4.5-6.2 [facility] Comment on above: Performed By: #### B JAMILAH DARNELL, CK #### [facility] [address] [place] [address] Dr. Manfred Brooks IRONon 02-04-2022 Iron [Mass/Vol] 79.0 ug/dL Normal 50.0-170.0 [facility] Comment on above: Performed By: #### MILTON BENOIT #### [facility] [address] [place] [address] Dr. Manfred Brooks LIPID PROFILEon 02-04-2022 CHOL-HDL RATIO NORM SEE BELOW Normal [facility] Comment on above: Result Comment: 3.3 - 4.4 LOW RISK 4.4 - 7.1 AVERAGE RISK 7.1 - 11.0 MODERATE RISK >11.0 HIGH RISK Performed By: #### MILTON BENOIT #### [facility] [address] [place] [address] Dr. Manfred Brooks Cholesterol [Mass/Vol] 134 mg/dL Normal <=200 [facility] Comment on above: Performed By: #### ANU BENOITRO #### [facility] [address] [place] [address] Dr. Manfred Brooks Cholesterol in HDL [Mass/Vol] 41 mg/dL Normal 40-60 [facility] Comment on above: Performed By: #### NAU BENOITRO #### [facility] [address] [address] [address] Manfred Brooks Cholesterol in LDL [Mass/Vol] 62.0 mg/dL Normal [facility] Comment on above: Performed By: #### ANU BENOITRO #### [facility] [address] [place] [address] Dr. Manfred Brooks Cholesterol.total/Ch olesterol in HDL [Mass ratio] 3.3 {ratio} Normal [facility] Comment on above: Performed By: #### ANU BENOITRO #### [facility] [address] [place] [address] Dr. Manfred Brooks HDL NORMAL > or = 60 mg/dl - LO W CARDIOVASCULAR RISK <40 mg/dl - HIGH CARDIOVASCULAR RISK Normal [facility] Comment on above: Performed By: #### ANU BENOITRO #### [facility] [address] [place] [address] Dr. Manfred Brooks LDL CALC NORMAL SEE BELOW Normal [facility] Comment on above: Result Comment: <100 mg/dl OPTIMAL 100 - 129 mg/dl NEAR OR ABOVE OPTIMAL 130 - 159 mg/dl BORDERLINE HIGH 160 - 189 mg/dl HIGH >190 mg/dl VERY HIGH Performed By: #### ANU BENOITRO #### [facility] [address] [place] [address] Dr. Manfred Brooks Triglyceride [Mass/Vol] 155 mg/dL Critically high <=150 [facility] Comment on above: Performed By: #### ANU BENOITRO #### [facility] [address] [place] [address] Dr. Manfred Brooks VLDL CALC 31.0 mg/dL Normal [facility] Comment on above: Performed By: #### ANU BENOITRO #### [facility] [address] [place] [address] Dr. Manfred Brooks PROF 14(COMP METB)on 022 Albumin [Mass/Vol] 3.9 g/dL Normal 3.4-5.0 [facility] Comment on above: Performed By: #### B MP, HSTROPN, CK #### [facility] [address] [address] [address] Manfred Brooks Albumin/Globulin [Mass ratio] 1.2 {ratio} Normal [facility] Comment on above: Performed By: #### B MP, HSTROPN, CK #### [facility] [address] [address] [address] Manfred Brooks ALP [Catalytic activity/Vol] 63 U/L Normal 46-116 [facility] Comment on above: Performed By: #### B MP, HSTROPN, CK #### [facility] [address] [address] [address] Manfred Brooks ALT [Catalytic activity/Vol] 25 U/L Normal 14-59 [facility] Comment on above: Performed By: #### B MP, HSTROPN, CK #### [facility] [address] [address] [address] Manfred Brooks Anion gap [Moles/Vol] 10.8 mmol/L Normal [facility] Comment on above: Performed By: #### B MP, HSTROPN, CK #### [facility] [address] [address] [address] Manfred Brooks AST [Catalytic activity/Vol] 14 U/L Critically low 15-37 [facility] Comment on above: Performed By: #### B MP, HSTROPN, CK #### [facility] [address] [address] [address] Manfred Brooks Bilirubin [Mass/Vol] 0.6 mg/dL Normal 0.2-1.0 [facility] Comment on above: Performed By: #### B MP, HSTROPN, CK #### [facility] [address] [address] [address] Manfred Brooks Calcium [Mass/Vol] 8.6 mg/dL Normal 8.5-10.1 [facility] Comment on above: Performed By: #### B MP, HSTROPN, CK #### [facility] [address] [address] [address] Manfred Brooks Chloride [Moles/Vol] 104 mmol/L Normal 98-107 [facility] Comment on above: Performed By: #### B MP, HSTROPN, CK #### [facility] [address] [address] [address] Manfred Brooks CO2 [Moles/Vol] 31.5 mmol/L Normal 21.0-32.0 [facility] Comment on above: Performed By: #### B MP, HSTROPN, CK #### [facility] [address] [place] [address] Dr. Manfred Brooks Creatinine [Mass/Vol] 0.67 mg/dL Normal 0.55-1.02 [facility] Comment on above: Performed By: #### B MANN HSTROPN, CK #### [facility] [address] [address] [address] Manfred Brooks EGFR-AF MICRONESIAN >60 Normal >=60 [facility] Comment on above: Performed By: #### B MANN, HSTROPN, CK #### [facility] [address] [address] [address] Manfred Brooks EGFR-NON AF MICRONESIAN >60 Normal >=60 [facility] Comment on above: Performed By: #### B MANN HSTROPN, CK #### [facility] [address] [place] [address] Dr. Manfred Brooks Globulin (S) [Mass/Vol] 3.2 g/dL Normal [facility] Comment on above: Performed By: #### B MP, HSTROPN, CK #### [facility] [address] [address] [address] Manfred Brooks Glucose [Mass/Vol] 102 mg/dL Normal 74-106 [facility] Comment on above: Performed By: #### B MANN, HSTROPN, CK #### [facility] [address] [address] [address] Manfred Brooks Potassium [Moles/Vol] 4.3 mmol/L Normal 3.5-5.1 [facility] Comment on above: Performed By: #### B MP, HSTROPN, CK #### [facility] [address] [place] [address] Dr. Manfred Brooks Protein [Mass/Vol] 7.1 g/dL Normal 6.1-8.2 [facility] Comment on above: Performed By: #### B MANN, HSTROPN, CK #### [facility] [address] [place] [address] Dr. Manfred Brooks Sodium [Moles/Vol] 142 mmol/L Normal 136-145 [facility] Comment on above: Performed By: #### B MP, HSTROPN, CK #### [facility] [address] [place] [address] Dr. Manfred Brooks Urea nitrogen [Mass/Vol] 19.0 mg/dL Critically high 7.0-18.0 [facility] Comment on above: Performed By: #### B MANN, HSTROPN, CK #### [facility] [address] [place] [address] Dr. Manfred Brooks Urea nitrogen/Creatinine [Mass ratio] 28.4 mg/mg Normal [facility] Comment on above: Performed By: #### B MANN, HSTROPN, CK #### [facility] [address] [place] [address] Dr. Manfred Brooks TSHon 02-04-2022 TSH 0.317 uIU/mL Critically low 0.470-4.680 [facility] Comment on above: Performed By: #### B MANN HSTROPN, CK #### [facility] [address] [place] [address] Dr. Manfred Brooks TSH RANGE SEE BELOW Normal [facility] Comment on above: Result Comment: <0.3 4 UIU/ml HYPERTHYROID 0.34-5.60 UIU/ml EUTHYROID >5.60 UIU/ml HYPOTHYROID Performed By: #### B MANN, HSTROPN, CK #### [facility] [address] [place] [address] Dr. Manfred Brooks VITAMIN D 25 OHon 02-04-2022 VIT D 25-OH 35.9 ng/mL Normal [facility] Comment on above: Performed By: #### MILTON BENOIT #### [facility] [address] [place], [place] [address] Dr. Manfred Brooks VIT D RANGES SEE BELOW Normal [facility] Comment on above: Result Comment: <20 ng/mL Vit D deficient 20 - <30 ng/mL Vit D insufficient 30 - 100 ng/mL Vit D sufficient >100 ng/mL Potential Toxicity Performed By: #### MILTON BENOIT #### [facility] [address] [place], [place] [address] Dr. Manfred Brooks Ambulatory Clinical Summaryo n 04-16-2021 Ambulatory Clinical Summary {[id number]}CD:[id number] Normal [facility] General Surgery Office/Clini c Noteon 04-16-2021 General [...] Salvatore Ogden, JEM Only if needed [address] [place] [address]- Additional Instructions: Problem List/Past Medical [...] (COVID-19) mRNA BNT-162b2 vax 11/30/2020 Recorded Normal [facility] Comment on above: Result Comment: Elec tronically Signed By: IZZY REYES, Salvatore Llanos.br\Date and Time Signed: 04/16/21 13:20 EDT Pathology Noteon 04-12-2021 Pathology Note [id number]. 00CD:127 [facility] Ambulatory Clinical Summaryo n 04-09-2021 Ambulatory Clinical Summary {[id number]}CD:[id number] [facility] [place] [facility] [place] [facility] [place] March 29, 2021 Cam Bates, [address] [place] [address] Re: BETTY CAMARENA Date of : 1940 Thank you for your referral of Betty Camarena who was seen on consultation on March 21, 2021, for two moles on right cheek. An excisional biopsy is planned. I have enclosed my consultation note for your review. I will be happy to follow Betty. Sincerely, Salvatore Moore MD General Surgery [facility] Ambulatory Clinical Summaryo n 03-21-2021 Ambulatory Clinical Summary {[id number]}CD:[id number] [facility] Patient Educationon 03-21-20 21 Patient Education Physical [...] your health care provider or diet and institutional nutrition consultant (dietitian). This may include: ? Eating fewer [...] weight koehler (more content not included)... Normal [facility] Physician Referralon 021 Physician Referral [id number] 0CD:127 Normal [facility] Cardiovascular Lab Reporton 04-17-2020 Cardiovascular Lab Report [facility] Patient Name: [facility] MR #: [id number] Physician: Denisa Blanco M.D. Medicine Service Date: 04/16/2020 Division of Birthdate: 1940 Cardiology Room #: [facility] Cardiovascular Services [place] [address] Cardiovascular Laboratory Report INDICATION: The patient is [...] informed consent. She was brought to [employer] in a fasting state. The left wrist area was prepped and draped in the usual fashion. Modified Raleigh's test was favorable on the left. Access in the left radial artery was obtained using micropuncture technique and ultrasound guidance. A 6-Armenian x 11 cm Hydrophilic sheath was advanced. Verapamil was given through the sheath and heparin was administered intravenously. The JR4 diagnostic catheter was advanced over the angled Glidewire into the left ventricular cavity and used to perform left heart catheterization with measurement of pressures. Pullback across the aortic valve was performed with measurement of pressures. Bilateral selective coronary angiography was then performed using 6-Armenian JL4 and JR4 diagnostic catheters. Catheters were [...] 40% proximal stenosis. SUMMARY OF FINDINGS: 1. Euqi-ho-sgleyuwz 2-vessel coronary artery disease with 30% mid LAD, 20% mid RCA, 40% distal RCA, 40% proximal PDA stenosis, but no occlusive disease and minimal disease in the circumflex vessel. 2. Pscobqgf-yf-tdzwxz elevation of LVEDP. 3. Uncontrolled systemic hypertension. [...] Alejandre M.D. Date Trans: 04/17/2020 09:09 A/anna [id number] cc: Cam Bates M.D. [address] [address] [place] [facility] Encounters Encounter Date Encounter Type Care Provider Facility Start: 12-26-2024 End: 12-26-2024 ambulatory DENISA ALEJANDRE [facility] Start: 01-19-2024 ambulatory [facility] Start: 01-07-2024 End: 01-07-2024 ambulatory [facility] Start: 01-19-2023 End: 01-20-2023 ambulatory LEANNA VIVAS [...] End: 04-17-2020 Patient encounter procedure PROVIDER UNKNOWN Facility:[facility] Payers Date Payer Category Payer Medicare [id number] 1957 Private Health Insurance [facility] [id number] Private Health Insurance Y [id number] 1940 Unknown [id number] 2.16.8 [id number] 1940 Unknown [id number] 2.16.84 [id number] 1940 Unknown [id number] 2.16.84 [id number] 1940 Unknown [id number] 2.16.84 [id number] 1940 Unknown [id number] 2.16.84 [id number] 1940 Unknown [id number] 2.16.84 [id number] 1940 Unknown [id number] 2.16.84 [id number] 1940 Unknown [id number] 2.16.84 [id number] 1940 Unknown [id number] 2.16.84 [id number] Progress note 12-26-2024 Note Date & Type Note Facility 12-26-2024 Note [place] [facility] Subjective Betty Camarena is a 84 y.o. year old female patient being seen for 1 year follow up CAD, PAF, hypertension, chronic diastolic heart failure, and carotid artery stenosis. She had routine labs with lipid panel in March 2024. Patient presented to [facility] ED last month for chest pain. She says she made the mistake of lifting a heavy object. C/o more frequent episodes of palpitations, usually occurring at night when she lies down. Denies chest pain, LE edema, and bleeding on Eliquis. Says her BP at home today was 136/72. Patient Active Problem List Diagnosis Coronary artery disease involving [place] coronary artery of [place] heart without angina pectoris Chronic diastolic heart [...] evaluated in the emergency room at the [facility] with flank pain, fever and was diagnosed [...] , Rfl: ergocalciferol (Vitamin D-2) 1.25 MG (32620 Units) capsule, Vitamin D, Disp: , Rfl: [...] (100 mg) b (more content not included)... [facility] Progress note 01-19-2024 Note Date & Type Note Facility 01-19-2024 Note Cardiology Progress Note - [facility] Reason for visit: ER follow-up 01/19/2024 [...] atrial fibrillation and was recently admitted to [facility]. She converted on her own with mild [...] on file Intimate Partner Violence: Unknown (12/03/2023) [place] Safety & Environment Fear of Current or [...] A DAY ergocalciferol (Vitamin D-2) 1.25 MG (74300 Units) capsule Vitamin D fu (more content not included)... [facility] Progress note 01-07-2024 Note Date & Type [...] All other systems reviewed and are negative. [facility] Progress note 01-07-2024 Note Date & Type Note Facility 01-07-2024 Note Cardiology Progress Note - [facility] Reason for visit: follow-up 01/07/2024 Patient [...] atrial fibrillation and was recently admitted to [facility]. She converted on her own with mild [...] on file Intimate Partner Violence: Unknown (12/03/2023) [place] Safety & Environment Fear of Current or [...] A DAY ergocalciferol (Vitamin D-2) 1.25 MG (35944 Units) capsule Vitamin D isosorbide mononitrate ER [...] ([place]) 200 mg (more content not included)... [facility] Clinical Note 04-09-2021 Note Date & Type [...] SARS-CoV-2 (COVID-19) mRNA BNT-162b2 vax 11/30/2020 Recorded [facility] Comment on above: Result Comment: Elec tronically [...] Aspirin [address] 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 Hx of Hypertension, Diastolic heart failure, mitral [...] Directed Allergies C (more content not included)... [facility] Comment on above: Result Comment: Elec tronically [...] DATE CREATED AUTHOR 05/03/2020 [facility] DATE CREATED AUTHOR AUTHOR'S ORGANIZ ATION 04/17/2021 [facility] DATE CREATED AUTHOR AUTHOR'S ORGANIZ ATION 01/25/2023 [facility] DATE CREATED AUTHOR AUTHOR'S ORGANIZ ATION 01/05/2025 [facility] FOR RECORDS PERTAINING TO PATIENTS WHO ARE [...] BE BASED ON THE PRIMARY CLINICAL RECORDS. [facility] [employer] [facility]. provides no warranty or guarantee of the accuracy or completeness of information in this document.
[2025-07-07 11:10] LABS: Hematocrit 39.6 % (36.0-48.0); Hemoglobin 12.6 g/dL (12.0-16.0); Immature Granulocytes Abs Auto 0.01 10^3/uL (0.00-0.03); Immature Granulocytes Pct Auto 0.2 % (0.0-0.5); Lymphocytes Absolute Auto 1.1 10^3/uL (1.2-3.8); Mean Corpuscular HGB Conc 31.8 g/dL (29.9-35.2); Mean Corpuscular Hemoglobin 30.1 pg (26.7-34.0); Mean Corpuscular Volume 94.7 fL (81.0-99.0); Platelet Count 292 10^3/uL (150-450); Red Blood Count 4.18 10^6/uL (4.20-5.40); White Blood Count 6.0 10^3/uL (4.0-11.0)
[2025-07-07 11:35] LABS: Alanine Aminotransferase 19 U/L (14-59); Albumin Globulin Ratio 1.0; Albumin Level 3.9 g/dL (3.4-5.0); Alkaline Phosphatase 78 U/L (46-116); Anion Gap 11.7; Aspartate Amino Transferase 13 U/L (15-37); Blood Urea Nitrogen 14.0 mg/dL (7.0-18.0); Calcium 9.7 mg/dL (8.5-10.1); Carbon Dioxide 29.6 mmol/L (21.0-32.0); Chloride 105 mmol/L (98-107); Estimated GFR (African America >60 (>=60 mL/min/1.73m^2); Estimated GFR (Non-African Ame >60 (>=60 mL/min/1.73m^2); Free T3 5.74 pg/mL (2.18-3.98); Globulin 3.9 g/dL; Glucose 125 mg/dL (74-106); NT Pro B Type Natriuretic Pept 253.0 pg/mL (<=1800.0); Potassium 4.3 mmol/L (3.5-5.1); Sodium 142 mmol/L (136-145); Thyroid Stimulating Hormone 0.030 uIU/mL (0.358-3.740); Total Protein 7.8 g/dL (6.4-8.2)
== END 2025-07-07 10:38 | disposition home or self-care (01) ==
LOC: LAB 10:38
PROVIDERS: PCP Family Medicine
DX: I11.0 Hypertensive heart disease with heart failure (principal); R00.2 Palpitations
CPT/HCPCS: 36415; 80053; 83880; 84439; 84443; 84481; 85025

== ENCOUNTER 2025-07-19 13:51 | Outpatient (OUT) | payer MEDICARE, OTHER, SELFPAY ==
--- NOTE | 2025-07-19 14:00 | CA_ITS ---
Patient Name: PAULINE CAMARENA MR#: [id number] : 1940 Exam Date: 07/19/2025 Ordering Doctor: BOOGIE COATES ECHOCARDIOGRAM REPORT PROCEDURE: CA ECHO DOPPLER COMPLETE INDICATIONS: Palpitations, atrial fibrillation - ablation, hypertension COMPARISON: None. DESCRIPTION: COMPLETE ECHOCARDIOGRAM Real-time transthoracic echocardiography with 2D, M-mode, spectral and color flow Doppler performed. QUALITY: Technical quality was good. LEFT VENTRICLE: Normal chamber size. Mild concentric left ventricular hypertrophy. Normal systolic function. Estimated LVEF is 55 to 60%. LV EF: Normal left ventricular ejection fraction, (>55%). DIASTOLIC: Grade 1 diastolic dysfunction. ATRIAL SEPTUM: Visually appears intact. LEFT ATRIUM: Mild chamber dilatation. RIGHT ATRIUM: Normal chamber size. RIGHT VENTRICLE: Normal chamber size. Normal right ventricular systolic function. TRICUSPID VALVE: Normal mobility and thickness. No stenosis with trivial regurgitation. Doppler studies reveal mildly (35-45) elevated right sided pressures. RVSP 41 mmHg MITRAL VALVE: Normal mobility and thickness. No evidence of mitral valve stenosis. Mild mitral annular calcification. Trivial mitral regurgitation. AORTIC VALVE: Normal trileaflet appearance. Mildly calcified aortic valve. Normal leaflet mobility. No evidence of aortic valve stenosis. No aortic regurgitation. AORTIC ROOT: Normal diameter and appearance, measuring 3.5 cm. PULMONIC VALVE: Normal thickness and mobility. No stenosis. No regurgitation. PERICARDIUM: No evidence of pericardial effusion. IVC: Collapses with inspiration. PLEURA: CONCLUSION: 1. Mild concentric left ventricular hypertrophy with normal systolic function. Estimated LVEF is 55 to 60%. 2. Normal right ventricular size and systolic function. 3. Mild left atrial dilatation. 4. Grade 1 diastolic dysfunction. 5. No significant valvular dysfunction. 6. Mildly elevated right-sided pressures. Adult Echocardiography Procedure Report Left Ventricle LVEDD (3.7 - 5.6 cm): 4.16 cm LVESD (2.2 - 4.0 cm): 3.62 cm LVIVS thickness (0.6 - 1.2 cm): 1.11 cm LVPW thickness (0.5 - 1.0 cm): 1.05 cm e': 0.06 m/s E - e': 9.33 LVOT Max Gradient: 3.33 mm[Hg] LVOT Area (cm2): 0.91 m/s Peak Velocity (LVOT): 0.91 m/s Mean Velocity (LVOT): 0.60 m/s LVOT Diameter 2.16 cm Left Atrium LA Volume Index (2D A2C): 22.05 ml/m2 Left Atrium Systolic Dimension: 3.66 cm Mitral Valve MV E to A Ratio: 0.57 Mitral Valve A-Wave Peak Velocity: 1.03 m/s Mitral Valve E-Wave Peak Velocity: 0.59 m/s Right Ventricle Aorta AO Root Diam: 3.53 cm Aortic Valve AoV Area (Peak Jm): 2.80 cm2, 2.80 cm2 AoV Area (VTI): 3.40 cm2, 3.40 cm2 Peak Velocity(Antegrade Flow): 1.19 m/s Peak Gradient(Antegrade Flow): 5.70 mm[Hg] Mean Velocity(Antegrade Flow): 0.69 m/s Mean Gradient(Antegrade Flow): 2.44 mm[Hg] Velocity Time Integral: 23.58 cm Tricuspid Valve Peak Velocity (Regurgitant Flow): 3.07 m/s Pulmonic Valve Peak Gradient: 5.02 mm[Hg], 5.46 mm[Hg] Right Atrium Right Atrium Systolic Pressure: 30.74 ml, 30.74 ml Dictated by: Willy Knapp M.D. on 07/20/2025 at 09:31 Approved by: Willy Knapp M.D. on 07/20/2025 at 09:34
--- OUTSIDE RECORDS SUMMARY | 2025-07-19 14:04 | XMS_ITS | CCD ---
Author Organization [facility] Care Team Providers Care Sas Sql Developer Name Role Phone UNKNOWN, PROVIDER Admitting Unavailable [...] VIVAS Consulting Unavailable DENISA ALEJANDRE Attending Unavailable KRUNAL COATES Attending Unavailable Allergies Allergy Classification Reported Allergen(s) Allergy Type Date of Onset Reaction(s) Facility (2 sources) dilTIAZem; Translations: [DILTIAZEM] Drug Allergy 11-19-2015 [facility] Repository (1 source) Digoxin; Translations: [DIGOXIN] Drug Allergy 12-24-2022 [facility] Repository Problems Active Problems Problem Classification [...] disease (3 sources) Atherosclerotic heart disease of [place] coronary artery without angina pectoris; Translations: [ASHD CAP[place] BAND CA W/O ANGINA PECTORIS] Onset: 02-05-2022 Chronic Deficiency and other anemia (1 source) Iron deficiency anemia, unspecified; Translations: [IRON DEFICIENCY ANEMIA UNSPECIFIED] Onset: 01-13-2023 Episodic Disorders of lipid metabolism (5 sources) Pure hypercholesterolemia, unspecified; Translations: [Hyperlipidemia, unspecified] [...] 05-19-2022 Chronic Other aftercare (1 source) 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 therapy; Translations: [OTH FLEECE TIER CURRENT DRUG THERAPY] Onset: 01-13-2023 Episodic Other aftercare (1 source) [facility]iary (current) use of anticoagulants; Translations: [ALF CURRNT USE ANTICOAGULANTS] Onset: 01-13-2023 Episodic Other [...] Onset: 02-05-2022 Episodic Other aftercare (1 source) penitentiary (current) use of oral hypoglycemic drugs; Translations: [FLEECE TIER USE ORAL HYPOGLYCEMIC DX] Onset: 05-19-2022 Episodic Other aftercare (1 source) penitentiary (current) use of aspirin; Translations: [ALF CURRENT USE OF ASPIRIN] Onset: 04-23-2022 Episodic Other lower respiratory disease (1 source) Acute respiratory distress; Translations: [ACUTE RESPIRATORY DISTRESS] Onset: 04-23-2022 Episodic Other lower respiratory disease (1 source) Dyspnea, unspecified; Translations: [DYSPNEA UNSPECIFIED] Onset: 02-05-2022 Episodic Results Test Name Value Interpretation Reference Range Facility 36on 07-07-2025 36 Regarding lab result s from 07/07/2025: Krunal Coates made aware of lab results. I also spoke with patient and informed her of normal renal function, normal electrolytes, and normal BNP. Told her thyroid function was abnormal and I faxed results to Dr. Bates. Patient verbalized understanding. Normal [facility] Office [facility] 07-07-2025 Follow-up visit [id number] Jessica Camarena ra 1940 F Date Provider Department Center 07/07/2025 [id number], ADAM [facility] Family History Family Status - Relation Status Age at Mother Father Level of Service:84523 [place] OFFICE/OUTPATIENT ESTABLISHED MOD MDM 30 MIN Reason for Visit and Comments: Coronary Artery Disease [187] Congestive Heart Failure [127] Atrial Fibrillation [80] Hypertension [068180] Palpitations [] - Patient is here today for a follow up appointment. Patient complains of an increased in palpitations Dizziness [763890] Nausea and belching [Other] Fatigue [46] Shortness of Breath [] Normal [facility] 36on 01-04-2025 36 MD Selena Oviedo MA Blood test was normal, waiting for the carotid ultrasound result. MD Selena Oviedo MA Her carotid ultrasound showed stable carotid disease. Follow up as planned. Spoke to patient advised patient of her test results per Dr. Medrano. Patient states ok, she will follow up in 1 year. 01/04/2025 [facility] Office Visiton 12-26-2024 Follow-up visit [id number] Jessica Camarena ra Alonso 1940 F Date Provider Department Center 12/26/2024 Joyce-DENISA ALEJANDRE [facility] No family history on file Level of Service:42340 [place] OFFICE/OUTPATIENT ESTABLISHED MOD MDM 30 MIN [facility] PROF CHEM 8 (BAS METB)on Anion gap [Moles/Vol] 12.8 mmol/L Normal [facility] Comment on above: Performed By: #### B MANN HSTROPN, CK #### [facility] [address] [place] [address] Dr. Manfred Brooks Calcium [Mass/Vol] 9.5 mg/dL Normal 8.5-10.1 [facility] Comment on above: Performed By: #### B MANN HSTROPN, CK #### [facility] [address] [place] [address] Dr. Manfred Brooks Chloride [Moles/Vol] 106 mmol/L Normal 98-107 [facility] Comment on above: Performed By: #### B MANN HSTROPN, CK #### [facility] [address] [place] [address] Dr. Manfred Brooks CO2 [Moles/Vol] 27.3 mmol/L Normal 21.0-32.0 [facility] Comment on above: Performed By: #### B MANN HSTROPN, CK #### [facility] [address] [place] [address] Dr. Manfred Brooks Creatinine [Mass/Vol] 0.93 mg/dL Normal 0.55-1.02 [facility] Comment on above: Performed By: #### B MANN HSTROPN, CK #### [facility] [address] [address] [address] Manfred Brooks EGFR-AF GREEK >60 Normal >=60 [facility] Comment on above: Performed By: #### B MP, HSTROPN, CK #### [facility] [address] [address] [address] Manfred Brooks EGFR-NON AF GREEK 58 mL/min/1.73m2 Critically low >=60 [facility] Comment on above: Performed By: #### B MP, HSTROPN, CK #### [facility] [address] [address] [address] Manfred Brooks Glucose [Mass/Vol] 116 mg/dL Critically high 74-106 [facility] Comment on above: Performed By: #### B MP, HSTROPN, CK #### [facility] [address] [place] [address] Dr. Manfred Brooks Potassium [Moles/Vol] 4.1 mmol/L Normal 3.5-5.1 [facility] Comment on above: Performed By: #### B MP, HSTROPN, CK #### [facility] [address] [address] [address] Manfred Brooks Sodium [Moles/Vol] 142 mmol/L Normal 136-145 [facility] Comment on above: Performed By: #### B MP, HSTROPN, CK #### [facility] [address] [address] [address] Manfred Brooks Urea nitrogen [Mass/Vol] 19.0 mg/dL Critically high 7.0-18.0 [facility] Comment on above: Performed By: #### B MP, HSTROPN, CK #### [facility] [address] [place] [address] Dr. Manfred Brooks Urea nitrogen/Creatinine [Mass ratio] 20.4 mg/mg Normal [facility] Comment on above: Performed By: #### B MP, HSTROPN, CK #### [facility] [address] [address] [address] Manfred Brooks CBC AUTO DIFFon 01-09-2023 BASO # 0.1 103/ul Normal 0.0-0.1 [facility] Comment on above: Performed By: #### C VDTBH #### [facility] [address] [place] [address] Dr. Manfred Brooks Basophils/100 WBC (Bld) 0.7 % Normal 0.2-2.0 [facility] Comment on above: Performed By: #### C VDTBH #### [facility] [address] [place] [address] Dr. Manfred Brooks EO # 0.1 103/ul Normal 0.0-0.7 [facility] Comment on above: Performed By: #### C VDTBH #### [facility] [address] [place] [address] Dr. Manfred Brooks Eosinophils/100 WBC (Bld) 1.9 % Normal 0.9-7.0 [facility] Comment on above: Performed By: #### C VDTBH #### [facility] [address] [place] [address] Dr. Manfred Brooks Erythrocyte distribution width (RBC) [Ratio] 15.5 % Critically high 11.0-15.0 [facility] Comment on above: Performed By: #### C VDTBH #### [facility] [address] [place] [address] Dr. Manfred Brooks Hematocrit (Bld) [Volume fraction] 39.1 % Normal 36.0-48.0 [facility] Comment on above: Performed By: #### C VDTBH #### [facility] [address] [place] [address] Dr. Manfred Brooks Hemoglobin (Bld) [Mass/Vol] 12.6 g/dL Normal 12.0-16.0 [facility] Comment on above: Performed By: #### C VDTBH #### [facility] [address] [place] [address] Dr. Manfred Brooks IG # 0.02 10e3/ul Normal 0.00-0.03 [facility] Comment on above: Performed By: #### C VDTBH #### [facility] [address] [address] [address] Manfred Brooks IG % 0.3 % Normal 0.0-0.5 [facility] Comment on above: Performed By: #### C VDTBH #### [facility] [address] [address] [address] Manfred Brooks LYMPH # 2.5 103/ul Normal 1.2-3.8 [facility] Comment on above: Performed By: #### C VDTBH #### [facility] [address] [address] [address] Manfred Brooks Lymphocytes/100 WBC (Bld) 36.2 % Normal 20.5-60.0 [facility] Comment on above: Performed By: #### C VDTBH #### [facility] [address] [place] [address] Dr. Manfred Brooks MANUAL DIFF REQ NO Normal [facility] Comment on above: Performed By: #### C VDTBH #### [facility] [address] [place] [address] Dr. Manfred Brooks MCH (RBC) [Entitic mass] 29.0 pg Normal 26.7-34.0 [facility] Comment on above: Performed By: #### C VDTBH #### [facility] [address] [place] [address] Dr. Manfred Brooks MCHC (RBC) [Mass/Vol] 32.2 g/dL Normal 29.9-35.2 [facility] Comment on above: Performed By: #### C VDTBH #### [facility] [address] [place] [address] Dr. Manfred Brooks MCV (RBC) [Entitic vol] 89.9 fL Normal 81.0-99.0 [facility] Comment on above: Performed By: #### C VDTBH #### [facility] [address] [place] [address] Dr. Manfred Brooks MONO # 0.6 103/ul Normal 0.3-0.8 [facility] Comment on above: Performed By: #### C VDTB #### [facility] [address] [place] [address] Dr. Manfred Brooks Monocytes/100 WBC (Bld) 9.2 % Normal 1.7-12.0 [facility] Comment on above: Performed By: #### C VDTBH #### [facility] [address] [place] [address] Dr. Manfred Brooks NEUT # 3.5 103/ul Normal 1.4-6.5 [facility] Comment on above: Performed By: #### C VDTBH #### [facility] [address] [place] [address] Dr. Manfred Brooks Neutrophils/100 WBC (Bld) 51.7 % Normal 43.0-75.0 [facility] Comment on above: Performed By: #### C VDTBH #### [facility] [address] [place] [address] Dr. Manfred Brooks Platelet mean volume (Bld) [Entitic vol] 11.3 fL Normal 9.5-13.5 [facility] Comment on above: Performed By: #### C VDTBH #### [facility] [address] [place] [address] Dr. Manfred Brooks PLT 215 103/ul Normal 150-450 [facility] Comment on above: Performed By: #### C VDTBH #### [facility] [address] [place] [address] Dr. Manfred Brooks RBC 4.35 106/ul Normal 4.20-5.40 [facility] Comment on above: Performed By: #### C VDTBH #### [facility] [address] [place] [address] Dr. Manfred Brooks WBC 6.8 103/ul Normal 4.0-11.0 [facility] Comment on above: Performed By: #### C VDTBH #### [facility] [address] [place] [address] Dr. Manfred Brooks CPKon 01-09-2023 CK [Catalytic activity/Vol] 121 U/L Normal 26-192 [facility] Comment on above: Performed By: #### B MP, HSTROPN, CK #### [facility] [address] [place] [address] Dr. Manfred Brooks PROF CHEM 8 (BAS METB)on Anion gap [Moles/Vol] 14.2 mmol/L Normal [facility] Comment on above: Performed By: #### B MP, HSTROPN, CK #### [facility] [address] [address] [address] Manfred Brooks Calcium [Mass/Vol] 9.3 mg/dL Normal 8.5-10.1 [facility] Comment on above: Performed By: #### B MP, HSTROPN, CK #### [facility] [address] [place] [address] Dr. Manfred Brooks Chloride [Moles/Vol] 103 mmol/L Normal 98-107 [facility] Comment on above: Performed By: #### B MP, HSTROPN, CK #### [facility] [address] [place] [address] Dr. Manfred Brooks CO2 [Moles/Vol] 30.5 mmol/L Normal 21.0-32.0 [facility] Comment on above: Performed By: #### B MP, HSTROPN, CK #### [facility] [address] [place] [address] Dr. Manfred Brooks Creatinine [Mass/Vol] 0.76 mg/dL Normal 0.55-1.02 [facility] Comment on above: Performed By: #### B MP, HSTROPN, CK #### [facility] [address] [place] [address] Dr. Manfred Brooks EGFR-AF GREEK >60 Normal >=60 [facility] Comment on above: Performed By: #### B MP, HSTROPN, CK #### [facility] [address] [place] [address] Dr. Manfred Brooks EGFR-NON AF GREEK >60 Normal >=60 [facility] Comment on above: Performed By: #### B MP, HSTROPN, CK #### [facility] [address] [place] [address] Dr. Manfred Brooks Glucose [Mass/Vol] 97 mg/dL Normal 74-106 [facility] Comment on above: Performed By: #### B MP HSTROPN, CK #### [facility] [address] [address] [address] Manfred Brooks Potassium [Moles/Vol] 4.7 mmol/L Normal 3.5-5.1 [facility] Comment on above: Performed By: #### B MP, HSTROPN, CK #### [facility] [address] [address] [address] Manfred Brooks Sodium [Moles/Vol] 143 mmol/L Normal 136-145 [facility] Comment on above: Performed By: #### B MP, HSTROPN, CK #### [facility] [address] [place] [address] Dr. Manfred Brooks Urea nitrogen [Mass/Vol] 16.0 mg/dL Normal 7.0-18.0 [facility] Comment on above: Performed By: #### B MP, HSTROPN, CK #### [facility] [address] [place] [address] Dr. Manfred Brooks Urea nitrogen/Creatinine [Mass ratio] 21.1 mg/mg Normal [facility] Comment on above: Performed By: #### B MP, HSTROPN, CK #### [facility] [address] [place] [address] Dr. Manfred Brooks TROPONIN, HIGH SENSITIVITYon 01-09-2023 HSTROP 6.1 pg/mL Normal 4.0-51.3 [facility] Comment on above: Result Comment: CUT- OFF POINTS HAVE BEEN ESTABLISHED BASED ON THE FOURTH UNIVERSAL DEFINITIONS OF MYOCARDIAL INFARCTION. THE UPPER REFERENCE LIMIT (URL) OF TROPONIN, DEFINED THE 99TH PERCENTILE OF cTnI DISTRIBUTION IN A REFERENCE POPULATION, HAS BEEN CONFIRMED THE DECISION THRESHOLD FOR [place] DIAGNOSIS. Performed By: #### B MP, HSTROPN, CK #### [facility] [address] [place] [address] Dr. Manfred Brooks XR CHEST 1 Von [...] NICOLE CLINE Date: 2023-01-09 08:12 Normal [facility] CBC AUTO DIFFon 01-07-2023 BASO # 0.1 103/ul Normal 0.0-0.1 [facility] Comment on above: Performed By: #### B MANN HSTROPN, CK #### [facility] [address] [address] [address] Manfred Brooks Basophils/100 WBC (Bld) 0.8 % Normal 0.2-2.0 [facility] Comment on above: Performed By: #### B MP, HSTROPN, CK #### [facility] [address] [address] [address] Manfred Brooks EO # 0.1 103/ul Normal 0.0-0.7 [facility] Comment on above: Performed By: #### B MANN, HSTROPN, CK #### [facility] [address] [address] [address] Manfred Brooks Eosinophils/100 WBC (Bld) 2.4 % Normal 0.9-7.0 [facility] Comment on above: Performed By: #### B MP, HSTROPN, CK #### [facility] [address] [address] [address] Manfred Brooks Erythrocyte distribution width (RBC) [Ratio] 15.6 % Critically high 11.0-15.0 [facility] Comment on above: Performed By: #### B MP, HSTROPN, CK #### [facility] [address] [address] [address] Manfred Brooks Hematocrit (Bld) [Volume fraction] 36.6 % Normal 36.0-48.0 [facility] Comment on above: Performed By: #### B MP, HSTROPN, CK #### [facility] [address] [place] [address] Dr. Manfred Brooks Hemoglobin (Bld) [Mass/Vol] 11.8 g/dL Critically low 12.0-16.0 [facility] Comment on above: Result Comment: RON ENT RECIEVED FLUIDS YESTERDAY AFTER MORNING CBC Performed By: #### B MP, HSTROPN, CK #### [facility] [address] [place] [address] Dr. Manfred Brooks IG # 0.01 10e3/ul Normal 0.00-0.03 [facility] Comment on above: Performed By: #### B MP, HSTROPN, CK #### [facility] [address] [place] [address] Dr. Manfred Brooks IG % 0.2 % Normal 0.0-0.5 [facility] Comment on above: Performed By: #### B MP, HSTROPN, CK #### [facility] [address] [place] [address] Dr. Manfred Brooks LYMPH # 2.1 103/ul Normal 1.2-3.8 [facility] Comment on above: Performed By: #### B MP, HSTROPN, CK #### [facility] [address] [place] [address] Dr. Manfred Brooks Lymphocytes/100 WBC (Bld) 35.1 % Normal 20.5-60.0 [facility] Comment on above: Performed By: #### B MP, HSTROPN, CK #### [facility] [address] [address] [address] Manfred Brooks MANUAL DIFF REQ NO Normal [facility] Comment on above: Performed By: #### B MP, HSTROPN, CK #### [facility] [address] [place] [address] Dr. Manfred Brooks MCH (RBC) [Entitic mass] 28.9 pg Normal 26.7-34.0 [facility] Comment on above: Performed By: #### B MP, HSTROPN, CK #### [facility] [address] [place] [address] Dr. Manfred Brooks MCHC (RBC) [Mass/Vol] 32.2 g/dL Normal 29.9-35.2 [facility] Comment on above: Performed By: #### B MP HSTROPN, CK #### [facility] [address] [place] [address] Dr. Manfred Brooks MCV (RBC) [Entitic vol] 89.7 fL Normal 81.0-99.0 [facility] Comment on above: Performed By: #### B MP HSTROPN, CK #### [facility] [address] [place] [address] Dr. Manfred Brooks MONO # 0.6 103/ul Normal 0.3-0.8 [facility] Comment on above: Performed By: #### B MP, HSTROPN, CK #### [facility] [address] [place] [address] Dr. Manfred Brooks Monocytes/100 WBC (Bld) 9.4 % Normal 1.7-12.0 [facility] Comment on above: Performed By: #### B MP HSTROPN, CK #### [facility] [address] [place] [address] Dr. Manfred Brooks NEUT # 3.1 103/ul Normal 1.4-6.5 [facility] Comment on above: Performed By: #### B MP, HSTROPN, CK #### [facility] [address] [place] [address] Dr. Manfred Brooks Neutrophils/100 WBC (Bld) 52.1 % Normal 43.0-75.0 [facility] Comment on above: Performed By: #### B MP HSTROPN, CK #### [facility] [address] [place] [address] Dr. Manfred Brooks Platelet mean volume (Bld) [Entitic vol] 10.3 fL Normal 9.5-13.5 [facility] Comment on above: Performed By: #### B MP, HSTROPN, CK #### [facility] [address] [place] [address] Dr. Manfred Brooks PLT 252 103/ul Normal 150-450 [facility] Comment on above: Performed By: #### B MP, HSTROPN, CK #### [facility] [address] [place] [address] Dr. Manfred Brooks RBC 4.08 106/ul Critically low 4.20-5.40 [facility] Comment on above: Performed By: #### B MP, HSTROPN, CK #### [facility] [address] [place] [address] Dr. Manfred Brooks WBC 5.9 103/ul Normal 4.0-11.0 [facility] Comment on above: Performed By: #### B MP, HSTROPN, CK #### [facility] [address] [place] [address] Dr. Manfred Brooks DIGOXINon 01-07-2023 DIG 0.5 ng/mL Critically low 0.9-2.[address] [facility] Comment on above: Performed By: #### MILTON BENOIT #### [facility] [address] [place] [address] Dr. Manfred Brooks PROF 14(COMP METB)on 023 Albumin [Mass/Vol] 3.6 g/dL Normal 3.4-5.0 [facility] Comment on above: Performed By: #### C VDTBH #### [facility] [address] [place] [address] Dr. Manfred Brooks Albumin/Globulin [Mass ratio] 1.3 {ratio} Normal [facility] Comment on above: Performed By: #### C VDTBH #### [facility] [address] [place] [address] Dr. Manfred Brooks ALP [Catalytic activity/Vol] 67 U/L Normal 46-116 [facility] Comment on above: Performed By: #### C VDTBH #### [facility] [address] [place] [address] Dr. Manfred Brooks ALT [Catalytic activity/Vol] 23 U/L Normal 14-59 [facility] Comment on above: Performed By: #### C VDTBH #### [facility] [address] [place] [address] Dr. Manfred Brooks Anion gap [Moles/Vol] 10.8 mmol/L Normal [facility] Comment on above: Performed By: #### C VDTBH #### [facility] [address] [place] [address] Dr. Manfred Brooks AST [Catalytic activity/Vol] 14 U/L Critically low 15-37 [facility] Comment on above: Performed By: #### C VDTBH #### [facility] [address] [place] [address] Dr. Manfred Brooks Bilirubin [Mass/Vol] 0.7 mg/dL Normal 0.2-1.0 [facility] Comment on above: Performed By: #### C VDTBH #### [facility] [address] [place] [address] Dr. Manfred Brooks Calcium [Mass/Vol] 8.7 mg/dL Normal 8.5-10.1 [facility] Comment on above: Performed By: #### C VDTBH #### [facility] [address] [place] [address] Dr. Manfred Brooks Chloride [Moles/Vol] 106 mmol/L Normal 98-107 [facility] Comment on above: Performed By: #### C VDTBH #### [facility] [address] [place] [address] Dr. Manfred Brooks CO2 [Moles/Vol] 29.8 mmol/L Normal 21.0-32.0 [facility] Comment on above: Performed By: #### C VDTBH #### [facility] [address] [place] [address] Dr. Manfred Brooks Creatinine [Mass/Vol] 0.77 mg/dL Normal 0.55-1.02 [facility] Comment on above: Performed By: #### C VDTBH #### [facility] [address] [place] [address] Dr. Manfred Brooks EGFR-AF GREEK >60 Normal >=60 [facility] Comment on above: Performed By: #### C VDTBH #### [facility] [address] [place] [address] Dr. Manfred Brooks EGFR-NON AF GREEK >60 Normal >=60 [facility] Comment on above: Performed By: #### C VDTBH #### [facility] [address] [address] [address] Manfred Brooks Globulin (S) [Mass/Vol] 2.7 g/dL Normal [facility] Comment on above: Performed By: #### C VDTBH #### [facility] [address] [place] [address] Dr. Manfred Brooks Glucose [Mass/Vol] 99 mg/dL Normal 74-106 [facility] Comment on above: Performed By: #### C VDTBH #### [facility] [address] [place] [address] Dr. Manfred Brooks Potassium [Moles/Vol] 3.6 mmol/L Normal 3.5-5.1 [facility] Comment on above: Performed By: #### C VDTBH #### [facility] [address] [place] [address] Dr. Manfred Brooks Protein [Mass/Vol] 6.3 g/dL Critically low 6.4-8.[address] [facility] Comment on above: Performed By: #### C VDTBH #### [facility] [address] [place] [address] Dr. Manfred Brooks Sodium [Moles/Vol] 143 mmol/L Normal 136-145 [facility] Comment on above: Performed By: #### C VDTBH #### [facility] [address] [place] [address] Dr. Manfred Brooks Urea nitrogen [Mass/Vol] 19.0 mg/dL Critically high 7.0-18.0 [facility] Comment on above: Performed By: #### C VDTBH #### [facility] [address] [place] [address] Dr. Manfred Brooks Urea nitrogen/Creatinine [Mass ratio] 24.7 mg/mg Normal [facility] Comment on above: Performed By: #### C VDTB #### [facility] [address] [place] [address] Dr. Manfred Brooks BNPon 01-06-2023 Natriuretic peptide B (Bld) [Mass/Vol] 186.0 pg/mL Normal <=1,800.0 [facility] Comment on above: Performed By: #### E MILTON HOGAN #### [facility] [address] [place] [address] Dr. Manfred Brooks CBC AUTO DIFFon 01-06-2023 BASO # 0.1 103/ul Normal 0.0-0.1 [facility] Comment on above: Performed By: #### B HOUSEHOLD REFRIGERATION MECHANIC, CMP #### [facility] [address] [place] [address] Dr. Manfred Brooks Basophils/100 WBC (Bld) 1.2 % Normal 0.2-2.0 [facility] Comment on above: Performed By: #### B HOUSEHOLD REFRIGERATION MECHANIC, CMP #### [facility] [address] [place] [address] Dr. Manfred Brooks EO # 0.1 103/ul Normal 0.0-0.7 [facility] Comment on above: Performed By: #### B HOUSEHOLD REFRIGERATION MECHANIC, CMP #### [facility] [address] [place] [address] Dr. Manfred Brooks Eosinophils/100 WBC (Bld) 2.1 % Normal 0.9-7.0 [facility] Comment on above: Performed By: #### B HOUSEHOLD REFRIGERATION MECHANIC, CMP #### [facility] [address] [place] [address] Dr. Manfred Brooks Erythrocyte distribution width (RBC) [Ratio] 15.2 % Critically high 11.0-15.0 [facility] Comment on above: Performed By: #### B HOUSEHOLD REFRIGERATION MECHANIC, CMP #### [facility] [address] [place] [address] Dr. Manfred Brooks Hematocrit (Bld) [Volume fraction] 42.3 % Normal 36.0-48.0 [facility] Comment on above: Performed By: #### B HOUSEHOLD REFRIGERATION MECHANIC, CMP #### [facility] [address] [address] [address] Manfred Brooks Hemoglobin (Bld) [Mass/Vol] 13.8 g/dL Normal 12.0-16.0 [facility] Comment on above: Performed By: #### B HOUSEHOLD REFRIGERATION MECHANIC, CMP #### [facility] [address] [place] [address] Dr. Manfred Brooks IG # 0.01 10e3/ul Normal 0.00-0.03 [facility] Comment on above: Performed By: #### B HOUSEHOLD REFRIGERATION MECHANIC, CMP #### [facility] [address] [place] [address] Dr. Manfred Brooks IG % 0.2 % Normal 0.0-0.5 [facility] Comment on above: Performed By: #### B HOUSEHOLD REFRIGERATION MECHANIC, CMP #### [facility] [address] [place] [address] Dr. Manfred Brooks LYMPH # 2.1 103/ul Normal 1.2-3.8 [facility] Comment on above: Performed By: #### B HOUSEHOLD REFRIGERATION MECHANIC, CMP #### [facility] [address] [place] [address] Dr. Manfred Brooks Lymphocytes/100 WBC (Bld) 35.6 % Normal 20.5-60.0 [facility] Comment on above: Performed By: #### B HOUSEHOLD REFRIGERATION MECHANIC, CMP #### [facility] [address] [place] [address] Dr. Manfred Brooks MANUAL DIFF REQ NO Normal [facility] Comment on above: Performed By: #### B HOUSEHOLD REFRIGERATION MECHANIC, CMP #### [facility] [address] [place] [address] Dr. Manfred Brooks MCH (RBC) [Entitic mass] 29.1 pg Normal 26.7-34.0 [facility] Comment on above: Performed By: #### B HOUSEHOLD REFRIGERATION MECHANIC, CMP #### [facility] [address] [place] [address] Dr. Manfred Brooks MCHC (RBC) [Mass/Vol] 32.6 g/dL Normal 29.9-35.2 [facility] Comment on above: Performed By: #### B HOUSEHOLD REFRIGERATION MECHANIC, CMP #### [facility] [address] [address] [address] Manfred Brooks MCV (RBC) [Entitic vol] 89.2 fL Normal 81.0-99.0 [facility] Comment on above: Performed By: #### B HOUSEHOLD REFRIGERATION MECHANIC, CMP #### [facility] [address] [place] [address] Dr. Manfred Brooks MONO # 0.5 103/ul Normal 0.3-0.8 [facility] Comment on above: Performed By: #### B HOUSEHOLD REFRIGERATION MECHANIC, CMP #### [facility] [address] [place] [address] Dr. Manfred Brooks Monocytes/100 WBC (Bld) 9.0 % Normal 1.7-12.0 [facility] Comment on above: Performed By: #### B HOUSEHOLD REFRIGERATION MECHANIC, CMP #### [facility] [address] [place] [address] Dr. Manfred Brooks NEUT # 3.0 103/ul Normal 1.4-6.5 [facility] Comment on above: Performed By: #### B HOUSEHOLD REFRIGERATION MECHANIC, CMP #### [facility] [address] [place] [address] Dr. Manfred Brooks Neutrophils/100 WBC (Bld) 51.9 % Normal 43.0-75.0 [facility] Comment on above: Performed By: #### B HOUSEHOLD REFRIGERATION MECHANIC, CMP #### [facility] [address] [place] [address] Dr. Manfred Brooks Platelet mean volume (Bld) [Entitic vol] 10.1 fL Normal 9.5-13.5 [facility] Comment on above: Performed By: #### B HOUSEHOLD REFRIGERATION MECHANIC, CMP #### [facility] [address] [place] [address] Dr. Manfred Brooks PLT 290 103/ul Normal 150-450 [facility] Comment on above: Performed By: #### B HOUSEHOLD REFRIGERATION MECHANIC, CMP #### [facility] [address] [place] [address] Dr. Manfred Brooks RBC 4.74 106/ul Normal 4.20-5.40 [facility] Comment on above: Performed By: #### B HOUSEHOLD REFRIGERATION MECHANIC, CMP #### [facility] [address] [address] [address] Manfred Brooks WBC 5.8 103/ul Normal 4.0-11.0 [facility] Comment on above: Performed By: #### B HOUSEHOLD REFRIGERATION MECHANIC, CMP #### [facility] [address] [address] [address] Manfred Brooks Covid-19 PCR (CVDTB)on 12-11 SARS-CoV-2 (COVID-19) RNA DAMIR+probe Ql (Unsp spec) Not detected Normal NOT DETECTED [facility] Comment on above: Result Comment: When diagnostic [...] for this test is supported by the [place] of Health and Human Service's declaration that [...] longer be used). Performed By: #### C VDTB #### [facility] [address] [address] [address] Manfred Brooks ECHOCARDIO M/2D COMPLETEon 0 01-06-2023 ECHOCARDIO M/2D COMPLETE Patient: BETTY CAMARENA Exam Date: 01/06/2023 : 1940 Gender:F Ordering : DR CAM BATES . Admission #: [id number] Family : DR DENISA ALEJANDRE M.D. Order #: [id number] CLICK HERE TO VIEW EXAM ECHOCARDIOGRAM REPORT [...] Alejandre M.D. on 01/06/2023 at 17:34 Normal [facility] FREE T3on 01-06-2023 FREE T3 5.79 pg/mlL Critically high 2.18-3.98 [facility] Comment on above: Performed By: #### C VDTBH #### [facility] [address] [place] [address] Dr. Manfred Brooks LACTATE/LACTIC ACIDon 2022 Lactate [Moles/Vol] 1.6 mmol/L Normal 0.4-2.0 [facility] Comment on above: Performed By: #### B MANN HSTROPJim, CK #### [facility] [address] [place] [address] Dr. Manfred Brooks PROF 14(COMP METB)on 023 Albumin [Mass/Vol] 4.1 g/dL Normal 3.4-5.0 [facility] Comment on above: Performed By: #### ANU BENOITRO #### [facility] [address] [place] [address] Dr. Manfred Brooks Albumin/Globulin [Mass ratio] 1.2 {ratio} Normal [facility] Comment on above: Performed By: #### ANU BENOITRO #### [facility] [address] [place] [address] Dr. Manfred Brooks ALP [Catalytic activity/Vol] 74 U/L Normal 46-116 [facility] Comment on above: Performed By: #### MILTON BENOIT #### [facility] [address] [address] [address] Manfred Brooks ALT [Catalytic activity/Vol] 29 U/L Normal 14-59 [facility] Comment on above: Performed By: #### Nikolas HOGAN, UMICRO #### [facility] [address] [address] [address] Manfred Brooks Anion gap [Moles/Vol] 13.8 mmol/L Normal [facility] Comment on above: Performed By: #### E SAMIRA, UMICRO #### [facility] [address] [address] [address] Manfred Brooks AST [Catalytic activity/Vol] 19 U/L Normal 15-37 [facility] Comment on above: Performed By: #### Nikolas HOGAN, UMICRO #### [facility] [address] [place] [address] Dr. Manfred Brooks Bilirubin [Mass/Vol] 0.4 mg/dL Normal 0.2-1.0 [facility] Comment on above: Performed By: #### Nikolas HOGAN, UMICRO #### [facility] [address] [address] [address] Manfred Brooks Calcium [Mass/Vol] 9.6 mg/dL Normal 8.5-10.1 [facility] Comment on above: Performed By: #### Nikolas HOGAN, UMICRO #### [facility] [address] [address] [address] Manfred Brooks Chloride [Moles/Vol] 108 mmol/L Critically high 98-107 [facility] Comment on above: Performed By: #### Nikolas HOGAN, UMICRO #### [facility] [address] [address] [address] Manfred Brooks CO2 [Moles/Vol] 31.0 mmol/L Normal 21.0-32.0 [facility] Comment on above: Performed By: #### Nikolas HOGAN, UMICRO #### [facility] [address] [address] [address] Manfred Brooks Creatinine [Mass/Vol] 0.80 mg/dL Normal 0.55-1.02 [facility] Comment on above: Performed By: #### Nikolas HOGAN UMICRO #### [facility] [address] [place] [address] Dr. Manfred Brooks EGFR-AF GREEK >60 Normal >=60 [facility] Comment on above: Performed By: #### E SAMIRA UMICRO #### [facility] [address] [place] [address] Dr. Manfred Brooks EGFR-NON AF GREEK >60 Normal >=60 [facility] Comment on above: Performed By: #### E SAMIRA UMICRO #### [facility] [address] [place] [address] Dr. Manfred Brooks Globulin (S) [Mass/Vol] 3.3 g/dL Normal [facility] Comment on above: Performed By: #### Nikolas HOGAN UMICRO #### [facility] [address] [place] [address] Dr. Manfred Brooks Glucose [Mass/Vol] 132 mg/dL Critically high 74-106 [facility] Comment on above: Performed By: #### Nikolas HOGAN UMICRO #### [facility] [address] [place] [address] Dr. Manfred Brooks Potassium [Moles/Vol] 3.8 mmol/L Normal 3.5-5.1 [facility] Comment on above: Performed By: #### Nikolas HOGAN UMICRO #### [facility] [address] [place] [address] Dr. Manfred Brooks Protein [Mass/Vol] 7.4 g/dL Normal 6.4-8.2 [facility] Comment on above: Performed By: #### Nikolas HOGAN UMICRO #### [facility] [address] [place] [address] Dr. Manfred Brooks Sodium [Moles/Vol] 149 mmol/L Critically high 136-145 [facility] Comment on above: Performed By: #### Nikolas HOGAN UMICRO #### [facility] [address] [place] [address] Dr. Manfred Brooks Urea nitrogen [Mass/Vol] 20.0 mg/dL Critically high 7.0-18.0 [facility] Comment on above: Performed By: #### MILTON BENOIT #### [facility] [address] [place] [address] Dr. Manfred Brooks Urea nitrogen/Creatinine [Mass ratio] 25.0 mg/mg Normal [facility] Comment on above: Performed By: #### MILTON BENOIT #### [facility] [address] [place] [address] Dr. Manfred Brooks PROTIMEon 01-06-2023 INR Coag (PPP) [Relative time] 0.99 {INR} Normal [facility] Comment on above: Performed By: #### B JAMILAH DARNELL CK #### [facility] [address] [place] [address] Dr. Manfred Brooks INR GUIDELINES SEE BELOW Normal [facility] Comment on above: Result Comment: JUSTYN RED INR: 2.0 - 3.0 CONDITIONS NOT LISTED BELOW 2.5 - 3.5 FOR PROSTHETIC HEART VALVE REPLACEMENT 2.5 - 3.5 RECURRENT THROMBOSIS Performed By: #### B JAMILAH DARNELL CK #### [facility] [address] [place] [address] Dr. Manfred Brooks PT Coag (PPP) [Time] 10.5 s Normal 9.0-11.6 [facility] Comment on above: Performed By: #### B JAMILAH DARNELL CK #### [facility] [address] [place] [address] Dr. Manfred Brooks PTTon 01-06-2023 aPTT Coag (Bld) [Time] 28.9 s Normal 22.3-36.2 [facility] Comment on above: Performed By: #### B JAMILAH DARNELL CK #### [facility] [address] [place] [address] Dr. Manfred Brooks T4on 01-06-2023 T4 [Mass/Vol] 8.00 ug/dL Normal 4.80-13.90 [facility] Comment on above: Performed By: #### B HOUSEHOLD REFRIGERATION MECHANIC, CMP #### [facility] [address] [place], [place] [address] Dr. Manfred Brooks TROPONIN, HIGH SENSITIVITYon 01-06-2023 HSTROP 18.1 pg/mL Normal 4.0-51.3 [facility] Comment on above: Result Comment: CUT- OFF POINTS HAVE BEEN ESTABLISHED BASED ON THE FOURTH UNIVERSAL DEFINITIONS OF MYOCARDIAL INFARCTION. THE UPPER REFERENCE LIMIT (URL) OF TROPONIN, DEFINED THE 99TH PERCENTILE OF cTnI DISTRIBUTION IN A REFERENCE POPULATION, HAS BEEN CONFIRMED THE DECISION THRESHOLD FOR [place] DIAGNOSIS. Performed By: #### E RUR, UMICRO #### [facility] [address] [address] [address] Manfred Brooks HSTROP 10.5 pg/mL Normal 4.0-51.3 [facility] Comment on above: Result Comment: CUT- OFF POINTS HAVE BEEN ESTABLISHED BASED ON THE FOURTH UNIVERSAL DEFINITIONS OF MYOCARDIAL INFARCTION. THE UPPER REFERENCE LIMIT (URL) OF TROPONIN, DEFINED THE 99TH PERCENTILE OF cTnI DISTRIBUTION IN A REFERENCE POPULATION, HAS BEEN CONFIRMED THE DECISION THRESHOLD FOR [place] DIAGNOSIS. Performed By: #### E RUR, UMICRO #### [facility] [address] [address] [address] Manfred Brooks TSHon 01-06-2023 TSH 0.567 uIU/mL Normal 0.358-3.740 [facility] Comment on above: Performed By: #### C VDTB #### [facility] [address] [address] [address] Manfred Brooks XR CHEST 1 Von [...] atelectasis versus infiltrates. Electronically authenticated by: JOHAN MCKEON Date: 2023-01-06 07:11 Normal [facility] PROF CHEM 8 (BAS METB)on Anion gap [Moles/Vol] 13.1 mmol/L Normal [facility] Comment on above: Performed By: #### E SAMIRA, UMICRO #### [facility] [address] [place] [address] Dr. Manfred Brooks Calcium [Mass/Vol] 9.3 mg/dL Normal 8.5-10.1 [facility] Comment on above: Performed By: #### E SAMIRA, UMICRO #### [facility] [address] [place] [address] Dr. Manfred Brooks Chloride [Moles/Vol] 104 mmol/L Normal 98-107 [facility] Comment on above: Performed By: #### Nikolas HOGAN, UMICRO #### [facility] [address] [place] [address] Dr. Manfred Brooks CO2 [Moles/Vol] 29.7 mmol/L Normal 21.0-32.0 [facility] Comment on above: Performed By: #### Nikolas HOGAN UMICRO #### [facility] [address] [place] [address] Dr. Manfred Brooks Creatinine [Mass/Vol] 0.72 mg/dL Normal 0.55-1.02 [facility] Comment on above: Performed By: #### Nikolas HOGAN UMICRO #### [facility] [address] [place] [address] Dr. Manfred Brooks EGFR-AF GREEK >60 Normal >=60 [facility] Comment on above: Performed By: #### Nikolas HOGAN UMICRO #### [facility] [address] [place] [address] Dr. Manfred Brooks EGFR-NON AF GREEK >60 Normal >=60 [facility] Comment on above: Performed By: #### E SAMIRA, UMICRO #### [facility] [address] [place] [address] Dr. Manfred Brooks Glucose [Mass/Vol] 129 mg/dL Critically high 74-106 [facility] Comment on above: Performed By: #### MILTON BENOIT #### [facility] [address] [address] [address] Manfred Brooks Potassium [Moles/Vol] 4.8 mmol/L Normal 3.5-5.1 [facility] Comment on above: Result Comment: spec imen slightly hemolysed. suggest repeat. Performed By: #### ANU BENOITRO #### [facility] [address] [place] [address] Dr. Manfred Brooks Sodium [Moles/Vol] 142 mmol/L Normal 136-145 [facility] Comment on above: Performed By: #### MILTON BENOIT #### [facility] [address] [place] [address] Dr. Manfred Brooks Urea nitrogen [Mass/Vol] 17.0 mg/dL Normal 7.0-18.0 [facility] Comment on above: Performed By: #### MILTON BENOIT #### [facility] [address] [place] [address] Dr. Manfred Brooks Urea nitrogen/Creatinine [Mass ratio] 23.6 mg/mg Normal [facility] Comment on above: Performed By: #### MILTON BENOIT #### [facility] [address] [place] [address] Dr. Manfred Brooks BNPon 05-16-2022 Natriuretic peptide B (Bld) [Mass/Vol] 322.0 pg/mL Normal <=1,800.0 [facility] Comment on above: Performed By: #### B MP, HSTROPN, CK #### [facility] [address] [place] [address] Dr. Manfred Brooks CARDIAC TELMA ADMITon 022 CK [Catalytic activity/Vol] 109 U/L Normal 26-192 [facility] [facility] Comment on above: Performed By: #### B MP, HSTROPN, CK #### [facility] [address] [place] [address] Dr. Manfred Brooks CK.MB [Mass/Vol] 1.43 ng/mL Normal <=3.60 [facility] Comment on above: Performed By: #### B MP, HSTROPN, CK #### [facility] [address] [address] [address] Manfred Brooks HSTROP 19.6 pg/mL Normal 4.0-51.3 The [facility] Comment on above: Result Comment: CUT- OFF POINTS HAVE BEEN ESTABLISHED BASED ON THE FOURTH UNIVERSAL DEFINITIONS OF MYOCARDIAL INFARCTION. THE UPPER REFERENCE LIMIT (URL) OF TROPONIN, DEFINED THE 99TH PERCENTILE OF cTnI DISTRIBUTION IN A REFERENCE POPULATION, HAS BEEN CONFIRMED THE DECISION THRESHOLD FOR [place] DIAGNOSIS. Performed By: #### B MP, HSTROPN, CK #### [facility] [address] [place] [address] Dr. Manfred Brooks MAHOGANY 71 ng/mL Normal 9-82 [facility] Comment on above: Performed By: #### B MP, HSTROPN, CK #### [facility] [address] [place] [address] Dr. Manfred Brooks CBC AUTO DIFFon 05-16-2022 BASO # 0.1 103/ul Normal 0.0-0.1 [facility] Comment on above: Performed By: #### B MP, HSTROPN, CK #### [facility] [address] [place] [address] Dr. Manfred Brooks Basophils/100 WBC (Bld) 1.4 % Normal 0.2-2.0 [facility] Comment on above: Performed By: #### B MP, HSTROPN, CK #### [facility] [address] [address] [address] Manfred Brooks EO # 0.1 103/ul Normal 0.0-0.7 The [facility] Comment on above: Performed By: #### B MP, HSTROPN, CK #### [facility] [address] [place] [address] Dr. Manfred Brooks Eosinophils/100 WBC (Bld) 2.3 % Normal 0.9-7.0 The [facility] Comment on above: Performed By: #### B MP, HSTROPN, CK #### [facility] [address] [place] [address] Dr. Manfred Brooks Erythrocyte distribution width (RBC) [Ratio] 14.4 % Normal 11.0-15.0 [facility] Comment on above: Performed By: #### B MP, HSTROPN, CK #### [facility] [address] [place] [address] Dr. Manfred Brooks Hematocrit (Bld) [Volume fraction] 38.1 % Normal 36.0-48.0 [facility] Comment on above: Performed By: #### B MP, HSTROPN, CK #### [facility] [address] [place] [address] Dr. Manfred Brooks Hemoglobin (Bld) [Mass/Vol] 12.1 g/dL Normal 12.0-16.0 [facility] Comment on above: Performed By: #### B MP, HSTROPN, CK #### [facility] [address] [place] [address] Dr. Manfred Brooks IG # 0.01 10e3/ul Normal 0.00-0.03 [facility] Comment on above: Performed By: #### B MP, HSTROPN, CK #### [facility] [address] [place] [address] Dr. Manfred Brooks IG % 0.2 % Normal 0.0-0.5 [facility] Comment on above: Performed By: #### B MP, HSTROPN, CK #### [facility] [address] [place] [address] Dr. Manfred Brooks LYMPH # 1.0 103/ul Critically low 1.2-3.[address] [facility] Comment on above: Performed By: #### B MP, HSTROPN, CK #### [facility] [address] [place] [address] Dr. Manfred Brooks Lymphocytes/100 WBC (Bld) 22.4 % Normal 20.5-60.0 [facility] Comment on above: Performed By: #### B MP, HSTROPN, CK #### [facility] [address] [place] [address] Dr. Manfred Brooks MANUAL DIFF REQ NO Normal [facility] Comment on above: Performed By: #### B MP, HSTROPN, CK #### [facility] [address] [place] [address] Dr. Manfred Brooks MCH (RBC) [Entitic mass] 28.9 pg Normal 26.7-34.0 [facility] Comment on above: Performed By: #### B MP, HSTROPN, CK #### [facility] [address] [place] [address] Dr. Manfred Brooks MCHC (RBC) [Mass/Vol] 31.8 g/dL Normal 29.9-35.2 [facility] Comment on above: Performed By: #### B MP, HSTROPN, CK #### [facility] [address] [place] [address] Dr. Manfred Brooks MCV (RBC) [Entitic vol] 90.9 fL Normal 81.0-99.0 [facility] Comment on above: Performed By: #### B MP, HSTROPN, CK #### [facility] [address] [place] [address] Dr. Manfred Brooks MONO # 0.5 103/ul Normal 0.3-0.8 [facility] Comment on above: Performed By: #### B MP, HSTROPN, CK #### [facility] [address] [place] [address] Dr. Manfred Brooks Monocytes/100 WBC (Bld) 10.2 % Normal 1.7-12.0 [facility] Comment on above: Performed By: #### B MP, HSTROPN, CK #### [facility] [address] [place] [address] Dr. Manfred Brooks NEUT # 2.8 103/ul Normal 1.4-6.5 [facility] Comment on above: Performed By: #### B MP, HSTROPN, CK #### [facility] [address] [place] [address] Dr. Manfred Brooks Neutrophils/100 WBC (Bld) 63.5 % Normal 43.0-75.0 [facility] Comment on above: Performed By: #### B MP, HSTROPN, CK #### [facility] [address] [address] [address] Manfred Brooks Platelet mean volume (Bld) [Entitic vol] 10.1 fL Normal 9.5-13.5 [facility] Comment on above: Performed By: #### B MP, HSTROPN, CK #### [facility] [address] [place] [address] Dr. Manfred Brooks PLT 268 103/ul Normal 150-450 [facility] Comment on above: Performed By: #### B MP, HSTROPN, CK #### [facility] [address] [place] [address] Dr. Manfred Brooks RBC 4.19 106/ul Critically low 4.20-5.40 [facility] Comment on above: Performed By: #### B MANN HSTROPN, CK #### [facility] [address] [place] [address] Dr. Manfred Brooks WBC 4.4 103/ul Normal 4.0-11.0 [facility] Comment on above: Performed By: #### B MANN HSTROPN, CK #### [facility] [address] [place] [address] STROKE HEAD WOon [...] MCKINLEY TAYLOR Date: 2022-05-16 12:01 Normal The [facility] CTA NECK WO W CONon 05-16-20 22 [...] by: JOHAN MCKEON Date: 2022-05-16 13:32 Normal The [facility] CULTURE URINEon 05-16-2022 CULTURE URINE Culture Observations : LIGHT GROWTH OF MIXED GENITAL BETO. NO POTENTIAL PATHOGENS SEEN. Normal The [facility] Comment on above: Performed By: #### B MP, HSTROPN, CK #### [facility] [address] [place] [address] Dr. Manfred Brooks [facility] SARS-CoV-2 (COVID-19) RNA DAMIR+probe Ql (Unsp spec) Not detected Normal NOT DETECTED The [facility] Comment on above: Result Comment: When diagnostic [...] for this test is supported by the [place] of Health and Human Service's declaration that [...] used). Performed By: #### C VDTBH #### [facility] [address] [place] [address] Dr. Manfred Brooks DIGOXINon 05-16-2022 DIG 2.3 ng/mL Critically high 0.9-2.0 [facility] Comment on above: Result Comment: repe ated Performed By: #### B MP, HSTROPN, CK #### [facility] [address] [place] [address] Dr. Manfred Brooks ER URINE PROFILEon 2 Bilirubin Ql (U) Negative Normal NEGATIVE [facility] Comment on above: Performed By: #### E SAMIRA UMICRO #### [facility] [address] [place] [address] Dr. Manfred Brooks Clarity (U) CLEAR Normal CLEAR The [facility] Comment on above: Performed By: #### E SAMIRA, UMICRO #### [facility] [address] [place] [address] Dr. Manfred Brooks Color (U) LT. YELLOW Normal YELLOW The [facility] Comment on above: Performed By: #### E SAMIRA, UMICRO #### [facility] [address] [place] [address] Dr. Manfred Brooks ERUAHD A micrscopic examination will be performed if indicated. Normal The [facility] Comment on above: Performed By: #### ANU BENOITRO #### [facility] [address] [place] [address] Dr. Manfred Brooks Glucose Ql (U) Negative Normal NEGATIVE [facility] Comment on above: Performed By: #### Nikolas HOGAN UMICRO #### [facility] [address] [place] [address] Dr. Manfred Brooks Hemoglobin Ql (U) Negative Normal NEGATIVE [facility] Comment on above: Performed By: #### Nikolas HOGAN UMICRO #### [facility] [address] [place] [address] Dr. Manfred Brooks Ketones Ql (U) Negative Normal NEGATIVE [facility] Comment on above: Performed By: #### ANU BENOITRO #### [facility] [address] [place] [address] Dr. Manfred Brooks LEUKOCYTES MODERATE Abnormal NEGATIVE [facility] Comment on above: Performed By: #### ANU BENOITRO #### [facility] [address] [place] [address] Dr. Manfred Brooks Nitrite Ql (U) Negative Normal NEGATIVE [facility] Comment on above: Performed By: #### ANU BENOITRO #### [facility] [address] [place] [address] Dr. Manfred Brooks pH (U) 6.5 [pH] Normal 5-9 [facility] Comment on above: Performed By: #### ANU BENOITRO #### [facility] [address] [place] [address] Dr. Manfred Brooks SPEC GRAVITY <=1.005 Abnormal 1.005-<=1.025 [facility] Comment on above: Performed By: #### ANU BENOITRO #### [facility] [address] [place] [address] Dr. Manfred Brooks UA PROTEIN Negative Normal NEGATIVE/ TRACE The [facility] Comment on above: Performed By: #### ANU BENOITRO #### [facility] [address] [place] [address] Dr. Manfred Brooks UR MICRO IND INDICATED Normal [facility] Comment on above: Performed By: #### E RUR UMICRO #### [facility] [address] [place] [address] Dr. Manfred Brooks Urobilinogen Qn (U) 0.2 {Antionette'U}/dL Normal 0.2 - 1. 0 [facility] Comment on above: Performed By: #### E SUBHASH HOGANICRO #### [facility] [address] [address] [address] Manfred Brooks POINT OF CARE GLUCOSEon 08 Glucose [Mass/Vol] 109 mg/dL Critically high 74-106 T [facility] Comment on above: Performed By: #### P OCGLUC #### [facility] [address] [place] [address] Dr. Manfred Brooks PROF 14(COMP METB)on 022 Albumin [Mass/Vol] 3.9 g/dL Normal 3.4-5.0 [facility] Comment on above: Performed By: #### B MP, HSTROPN, CK #### [facility] [address] [place] [address] Dr. Manfred Brooks Albumin/Globulin [Mass ratio] 1.3 {ratio} Normal [facility] Comment on above: Performed By: #### B MP, HSTROPN, CK #### [facility] [address] [place] [address] Dr. Manfred Brooks ALP [Catalytic activity/Vol] 58 U/L Normal 46-116 [facility] Comment on above: Performed By: #### B MP, HSTROPN, CK #### [facility] [address] [address] [address] Manfred Brooks ALT [Catalytic activity/Vol] 28 U/L Normal 14-59 [facility] Comment on above: Performed By: #### B MP, HSTROPN, CK #### [facility] [address] [address] [address] Manfred Brooks Anion gap [Moles/Vol] 11.4 mmol/L Normal [facility] Comment on above: Performed By: #### B MP, HSTROPN, CK #### [facility] [address] [address] [address] Manfred Brooks AST [Catalytic activity/Vol] 18 U/L Normal 15-37 The [facility] Comment on above: Performed By: #### B MP, HSTROPN, CK #### [facility] [address] [address] [address] Manfred Brooks Bilirubin [Mass/Vol] 0.6 mg/dL Normal 0.2-1.0 [facility] Comment on above: Performed By: #### B MP, HSTROPN, CK #### [facility] [address] [place] [address] Dr. Manfred Brooks Calcium [Mass/Vol] 8.8 mg/dL Normal 8.5-10.1 [facility] Comment on above: Performed By: #### B MP, HSTROPN, CK #### [facility] [address] [address] [address] Manfred Brooks Chloride [Moles/Vol] 106 mmol/L Normal 98-107 [facility] Comment on above: Performed By: #### B MP, HSTROPN, CK #### [facility] [address] [place] [address] Dr. Manfred rBooks CO2 [Moles/Vol] 31.3 mmol/L Normal 21.0-32.0 [facility] Comment on above: Performed By: #### B MP, HSTROPN, CK #### [facility] [address] [place] [address] Dr. Manfred Brooks Creatinine [Mass/Vol] 0.76 mg/dL Normal 0.55-1.02 [facility] Comment on above: Performed By: #### B MP, HSTROPN, CK #### [facility] [address] [place] [address] Dr. Manfred Brooks EGFR-AF GREEK >60 Normal >=60 [facility] Comment on above: Performed By: #### B MP, HSTROPN, CK #### [facility] [address] [address] [address] Manfred Brooks EGFR-NON AF GREEK >60 Normal >=60 The [facility] Comment on above: Performed By: #### B MP, HSTROPN, CK #### [facility] [address] [address] [address] Manfred Brooks Globulin (S) [Mass/Vol] 2.9 g/dL Normal [facility] Comment on above: Performed By: #### B MP, HSTROPN, CK #### [facility] [address] [address] [address] Manfred Brooks Glucose [Mass/Vol] 122 mg/dL Critically high 74-106 T [facility] Comment on above: Performed By: #### B MP, HSTROPN, CK #### [facility] [address] [address] [address] Manfred Brooks Potassium [Moles/Vol] 3.7 mmol/L Normal 3.5-5.1 [facility] Comment on above: Performed By: #### B MP, HSTROPN, CK #### [facility] [address] [address] [address] Manfred Brooks Protein [Mass/Vol] 6.8 g/dL Normal 6.4-8.2 [facility] Comment on above: Performed By: #### B MP, HSTROPN, CK #### [facility] [address] [address] [address] Manfred Brooks Sodium [Moles/Vol] 145 mmol/L Normal 136-145 [facility] Comment on above: Performed By: #### B MP, HSTROPN, CK #### [facility] [address] [address] [address] Manfred Brooks Urea nitrogen [Mass/Vol] 18.0 mg/dL Normal 7.0-18.0 [facility] Comment on above: Performed By: #### B MP, HSTROPN, CK #### [facility] [address] [address] [address] Manfred Brooks Urea nitrogen/Creatinine [Mass ratio] 23.7 mg/mg Normal [facility] Comment on above: Performed By: #### B VENESSA DARNELLTRDANNIELLE CK #### [facility] [address] [place] [address] Dr. Manfred Brooks PROTIMEon 05-16-2022 INR Coag (PPP) [Relative time] 1.08 {INR} Normal [facility] Comment on above: Performed By: #### ANU BENOITRO #### [facility] [address] [place] [address] Dr. Manfred Brooks INR GUIDELINES SEE BELOW Normal [facility] Comment on above: Result Comment: JUSTYN RED INR: 2.0 - 3.0 CONDITIONS NOT LISTED BELOW 2.5 - 3.5 FOR PROSTHETIC HEART VALVE REPLACEMENT 2.5 - 3.5 RECURRENT THROMBOSIS Performed By: #### MILTON BENOIT #### [facility] [address] [place] [address] Dr. Manfred Brooks PT Coag (PPP) [Time] 11.6 s Normal 9.0-11.6 [facility] Comment on above: Performed By: #### MILTON BENOIT #### [facility] [address] [place] [address] Dr. Manfred Brooks PTTon 05-16-2022 aPTT Coag (Bld) [Time] 28.1 s Normal 22.3-36.2 [facility] Comment on above: Performed By: #### MILTON BENOIT #### [facility] [address] [place] [address] Dr. Manfred Brooks TSHon 05-16-2022 TSH 0.320 uIU/mL Critically low 0.358-3.740 [facility] Comment on above: Performed By: #### B JAMILAH DARNELL CK #### [facility] [address] [place] [address] Dr. Manfred Brooks URINE MICROSCOPIC ONLYon BACTERIA TRACE Abnormal NONE SEEN The [facility] Comment on above: Performed By: #### ANU BENOITRO #### [facility] [address] [place] [address] Dr. Manfred Brooks Bacteria identified Cx Nom (U) INDICATED Normal [facility] Comment on above: Performed By: #### E RUR, UMICRO #### [facility] [address] [place] [address] Dr. Manfred Brooks CAST NONE SEEN Normal NONE SEEN The [facility] Comment on above: Performed By: #### E RUR, UMICRO #### [facility] [address] [place] [address] Dr. Manfred Brooks Crystals LM Nom (Urine sed) NONE SEEN Normal NONE SEEN The [facility] Comment on above: Performed By: #### E RUR, UMICRO #### [facility] [address] [place] [address] Dr. Manfred Brooks Epithelial cells LM Ql (Urine sed) MODERATE Abnormal NONE SEEN /RARE The [facility] Comment on above: Performed By: #### E RUR, UMICRO #### [facility] [address] [place] [address] Dr. Manfred Brooks MUCOUS NONE SEEN Normal NONE SEEN The [facility] Comment on above: Performed By: #### E JAMILAR, UMICRO #### [facility] [address] [place] [address] Dr. Manfred Brooks RBC NONE SEEN Abnormal 0-2 The [facility] Comment on above: Performed By: #### E RUR, UMICRO #### [facility] [address] [place] [address] Dr. Manfred Brooks WBC 10-20 Abnormal NONE SEEN The [facility] Comment on above: Performed By: #### E JAMILAR, UMICRO #### [facility] [address] [place] [address] Dr. Manfred Brooks XR CHEST 1 Von [...] ALEJANDRO BLACKMAN Date: 2022-05-16 12:58 Normal The [facility] T3, TOTAL (TRIIODOTHYRONINE) on 04-22-2022 T3, TOTAL 85 ng/dL Normal 71-180 [facility] Comment on above: Performed By: #### C VDTBH #### [facility] [address] [place] [address] Dr. Manfred Brooks BNPon 04-21-2022 Natriuretic peptide B (Bld) [Mass/Vol] 486.0 pg/mL Normal <=1,800.0 The [facility] Comment on above: Performed By: #### B [employer]ER[employer] MECHANIC, CMP #### [facility] [address] [place] [address] Dr. Manfred Brooks CBC AUTO DIFFon 04-21-2022 BASO # 0.1 103/ul Normal 0.0-0.1 [facility] Comment on above: Performed By: #### Nikolas HOGAN UMICRO #### [facility] [address] [place] [address] Dr. Manfred Brooks Basophils/100 WBC (Bld) 1.0 % Normal 0.2-2.0 [facility] Comment on above: Performed By: #### Nikolas RUAlin, UMICRO #### [facility] [address] [place] [address] Dr. Manfred Brooks EO # 0.2 103/ul Normal 0.0-0.7 [facility] Comment on above: Performed By: #### Nikolas RUAlin, UMICRO #### [facility] [address] [place] [address] Dr. Manfred Brooks Eosinophils/100 WBC (Bld) 2.7 % Normal 0.9-7.0 [facility] Comment on above: Performed By: #### Nikolas HOGAN UMICRO #### [facility] [address] [place] [address] Dr. Manfred Brooks Erythrocyte distribution width (RBC) [Ratio] 14.2 % Normal 11.0-15.0 [facility] Comment on above: Performed By: #### MILTON BENOIT #### [facility] [address] [place] [address] Dr. Manfred Brooks Hematocrit (Bld) [Volume fraction] 38.7 % Normal 36.0-48.0 [facility] Comment on above: Performed By: #### MILTON BENOIT #### [facility] [address] [place] [address] Dr. Manfred Brooks Hemoglobin (Bld) [Mass/Vol] 12.1 g/dL Normal 12.0-16.0 [facility] Comment on above: Performed By: #### MILTON BENOIT #### [facility] [address] [place] [address] Dr. Manfred Brooks IG # 0.02 10e3/ul Normal 0.00-0.03 [facility] Comment on above: Performed By: #### MILTON BENOIT #### [facility] [address] [place] [address] Dr. Manfred Brooks IG % 0.3 % Normal 0.0-0.5 [facility] Comment on above: Performed By: #### MILTON BENOIT #### [facility] [address] [place] [address] Dr. Manfred Brooks LYMPH # 2.6 103/ul Normal 1.2-3.8 [facility] Comment on above: Performed By: #### MILTON BENOIT #### [facility] [address] [place] [address] Dr. Manfred Brooks Lymphocytes/100 WBC (Bld) 36.7 % Normal 20.5-60.0 [facility] Comment on above: Performed By: #### MILTON BENOIT #### [facility] [address] [place] [address] Dr. Manfred Brooks MANUAL DIFF REQ NO Normal [facility] Comment on above: Performed By: #### MILTON BENOIT #### [facility] [address] [place] [address] Dr. Manfred Brooks MCH (RBC) [Entitic mass] 29.2 pg Normal 26.7-34.0 [facility] Comment on above: Performed By: #### Nikolas HOGAN, UMICRO #### [facility] [address] [place] [address] Dr. Manfred Brooks MCHC (RBC) [Mass/Vol] 31.3 g/dL Normal 29.9-35.2 [facility] Comment on above: Performed By: #### E JAMILAR, UMICRO #### [facility] [address] [place] [address] Dr. Manfred Brooks MCV (RBC) [Entitic vol] 93.5 fL Normal 81.0-99.0 [facility] Comment on above: Performed By: #### Nikolas HOGAN, UMICRO #### [facility] [address] [place] [address] Dr. Manfred Brooks MONO # 0.7 103/ul Normal 0.3-0.8 [facility] Comment on above: Performed By: #### Nikolas HOGAN, UMICRO #### [facility] [address] [place] [address] Dr. Manfred Brooks Monocytes/100 WBC (Bld) 9.5 % Normal 1.7-12.0 [facility] Comment on above: Performed By: #### Nikolas HOGAN, UMICRO #### [facility] [address] [place] [address] Dr. Manfred Brooks NEUT # 3.5 103/ul Normal 1.4-6.5 The [facility] Comment on above: Performed By: #### E SAMIRA, UMICRO #### [facility] [address] [place] [address] Dr. Manfred Brooks Neutrophils/100 WBC (Bld) 49.8 % Normal 43.0-75.0 The [facility] Comment on above: Performed By: #### E JAMILAR, UMICRO #### [facility] [address] [place] [address] Dr. Manfred Brooks Platelet mean volume (Bld) [Entitic vol] 10.5 fL Normal 9.5-13.5 [facility] Comment on above: Performed By: #### E RUR UMICRO #### [facility] [address] [place] [address] Dr. Manfred Brooks PLT 286 103/ul Normal 150-450 [facility] Comment on above: Performed By: #### E RUR, UMICRO #### [facility] [address] [address] [address] Manfred Brooks RBC 4.14 106/ul Critically low 4.20-5.40 [facility] Comment on above: Performed By: #### E RUR, UMICRO #### [facility] [address] [place] [address] Dr. Manfred Brooks WBC 7.0 103/ul Normal 4.0-11.0 [facility] Comment on above: Performed By: #### Nikolas HOGAN UMICRO #### [facility] [address] [place] [address] Dr. Manfred Brooks DIGOXINon 04-21-2022 DIG <0.2 Critically low 0.9-2.[address] [facility] Comment on above: Performed By: #### B MP, HSTROPN, CK #### [facility] [address] [place] [address] Dr. Manfred Brooks ECHOCARDIO M/2D COMPLETEon 0 04-21-2022 ECHOCARDIO M/2D COMPLETE Patient: BETTY CAMARENA Exam Date: 04/21/2022 : 1940 Gender:F Ordering : DR CAM BATES . Admission #: [id number] Family : DR GLORIA SALCEDO . Order #: [id number] CLICK HERE TO VIEW EXAM ECHOCARDIOGRAM REPORT [...] Alejandre M.D. on 04/21/2022 at 19:20 Normal [facility] PROF 14(COMP METB)on 022 Albumin [Mass/Vol] 3.4 g/dL Normal 3.4-5.0 [facility] Comment on above: Performed By: #### B HOUSEHOLD REFRIGERATION MECHANIC, CMP #### [facility] [address] [address] [address] Manfred Brooks Albumin/Globulin [Mass ratio] 1.2 {ratio} Normal [facility] Comment on above: Performed By: #### B HOUSEHOLD REFRIGERATION MECHANIC, CMP #### [facility] [address] [address] [address] Manfred Brooks ALP [Catalytic activity/Vol] 62 U/L Normal 46-116 [facility] Comment on above: Performed By: #### B HOUSEHOLD REFRIGERATION MECHANIC, CMP #### [facility] [address] [place], [place] [address] Dr. Manfred Brooks ALT [Catalytic activity/Vol] 24 U/L Normal 14-59 [facility] Comment on above: Performed By: #### B HOUSEHOLD REFRIGERATION MECHANIC, CMP #### [facility] [address] [address] [address] Manfred Brooks Anion gap [Moles/Vol] 10.4 mmol/L Normal [facility] Comment on above: Performed By: #### B HOUSEHOLD REFRIGERATION MECHANIC, CMP #### [facility] [address] [address] [address] Manfred Brooks AST [Catalytic activity/Vol] 9 U/L Critically low 15-37 [facility] Comment on above: Performed By: #### B HOUSEHOLD REFRIGERATION MECHANIC, CMP #### [facility] [address] [place] [address] Dr. Manfred Brooks Bilirubin [Mass/Vol] 0.3 mg/dL Normal 0.2-1.0 [facility] Comment on above: Performed By: #### B HOUSEHOLD REFRIGERATION MECHANIC, CMP #### [facility] [address] [place] [address] Dr. Manfred Brooks Calcium [Mass/Vol] 8.5 mg/dL Normal 8.5-10.1 [facility] Comment on above: Performed By: #### B HOUSEHOLD REFRIGERATION MECHANIC, CMP #### [facility] [address] [place] [address] Dr. Manfred Brooks Chloride [Moles/Vol] 109 mmol/L Critically high 98-107 [facility] Comment on above: Performed By: #### B HOUSEHOLD REFRIGERATION MECHANIC, CMP #### [facility] [address] [place] [address] Dr. Manfred Brooks CO2 [Moles/Vol] 28.5 mmol/L Normal 21.0-32.0 [facility] Comment on above: Performed By: #### B HOUSEHOLD REFRIGERATION MECHANIC, CMP #### [facility] [address] [place] [address] Dr. Manfred Brooks Creatinine [Mass/Vol] 0.83 mg/dL Normal 0.55-1.02 [facility] Comment on above: Performed By: #### B HOUSEHOLD REFRIGERATION MECHANIC, CMP #### [facility] [address] [place] [address] Dr. Manfred Brooks EGFR-AF GREEK >60 Normal >=60 [facility] Comment on above: Performed By: #### B HOUSEHOLD REFRIGERATION MECHANIC, CMP #### [facility] [address] [address] [address] Manfred Brooks EGFR-NON AF GREEK >60 Normal >=60 [facility] Comment on above: Performed By: #### B HOUSEHOLD REFRIGERATION MECHANIC, CMP #### [facility] [address] [address] [address] Manfred Brooks Globulin (S) [Mass/Vol] 2.8 g/dL Normal [facility] Comment on above: Performed By: #### B HOUSEHOLD REFRIGERATION MECHANIC, CMP #### [facility] [address] [address] [address] Manfred Brooks Glucose [Mass/Vol] 107 mg/dL Critically high 74-106 [facility] Comment on above: Performed By: #### B HOUSEHOLD REFRIGERATION MECHANIC, CMP #### [facility] [address] [place] [address] Dr. Manfred Brooks Potassium [Moles/Vol] 3.9 mmol/L Normal 3.5-5.1 [facility] Comment on above: Performed By: #### B HOUSEHOLD REFRIGERATION MECHANIC, CMP #### [facility] [address] [place] [address] Dr. Manfred Brooks Protein [Mass/Vol] 6.2 g/dL Critically low 6.4-8.[address] [facility] Comment on above: Performed By: #### B HOUSEHOLD REFRIGERATION MECHANIC, CMP #### [facility] [address] [place] [address] Dr. Manfred Brooks Sodium [Moles/Vol] 144 mmol/L Normal 136-145 [facility] Comment on above: Performed By: #### B HOUSEHOLD REFRIGERATION MECHANIC, CMP #### [facility] [address] [place] [address] Dr. Manfred Brooks Urea nitrogen [Mass/Vol] 23.0 mg/dL Critically high 7.0-18.0 [facility] Comment on above: Performed By: #### B HOUSEHOLD REFRIGERATION MECHANIC, CMP #### [facility] [address] [place] [address] Dr. Manfred Brooks Urea nitrogen/Creatinine [Mass ratio] 27.7 mg/mg Normal [facility] Comment on above: Performed By: #### B HOUSEHOLD REFRIGERATION MECHANIC, CMP #### [facility] [address] [place] [address] Dr. Manfred Brooks BNPon 04-20-2022 Natriuretic peptide B (Bld) [Mass/Vol] 199.0 pg/mL Normal <=1,800.0 The [facility] Comment on above: Performed By: #### ANU BENOITRO #### [facility] [address] [place] [address] Dr. Manfred Brooks CARDIAC TELMA 3-6on 2 CK [Catalytic activity/Vol] 55 U/L Normal 26-192 [facility] Comment on above: Performed By: #### SUBHASH BENOITICRO #### [facility] [address] [place] [address] Dr. Manfred Brooks CK.MB [Mass/Vol] 1.69 ng/mL Normal <=3.60 [facility] Comment on above: Performed By: #### ANU BENOITRO #### [facility] [address] [place] [address] Dr. Manfred Brooks HSTROP 37.5 pg/mL Normal 4.0-51.3 The [facility] Comment on above: Result Comment: CUT- OFF POINTS HAVE BEEN ESTABLISHED BASED ON THE FOURTH UNIVERSAL DEFINITIONS OF MYOCARDIAL INFARCTION. THE UPPER REFERENCE LIMIT (URL) OF TROPONIN, DEFINED THE 99TH PERCENTILE OF cTnI DISTRIBUTION IN A REFERENCE POPULATION, HAS BEEN CONFIRMED THE DECISION THRESHOLD FOR [place] DIAGNOSIS. Performed By: #### ANU BENOITRO #### [facility] [address] [place] [address] Dr. Manfred Brooks CK [Catalytic activity/Vol] 54 U/L Normal 26-192 [facility] Comment on above: Performed By: #### Nikolas HOGAN UMICRO #### [facility] [address] [place] [address] Dr. Manfred Brooks CK.MB [Mass/Vol] 1.12 ng/mL Normal <=3.60 [facility] Comment on above: Performed By: #### Nikolas HOGAN UMICRO #### [facility] [address] [place] [address] Dr. Manfred Brooks HSTROP 27.5 pg/mL Normal 4.0-51.3 [facility] Comment on above: Result Comment: CUT- OFF POINTS HAVE BEEN ESTABLISHED BASED ON THE FOURTH UNIVERSAL DEFINITIONS OF MYOCARDIAL INFARCTION. THE UPPER REFERENCE LIMIT (URL) OF TROPONIN, DEFINED THE 99TH PERCENTILE OF cTnI DISTRIBUTION IN A REFERENCE POPULATION, HAS BEEN CONFIRMED THE DECISION THRESHOLD FOR [place] DIAGNOSIS. Performed By: #### MILTON BENOIT #### [facility] [address] [place] [address] Dr. Manfred Brooks CARDIAC TELMA ADMITon 022 CK [Catalytic activity/Vol] 64 U/L Normal 26-192 [facility] Comment on above: Performed By: #### MILTON BENOIT #### [facility] [address] [place] [address] Dr. Manfred Brooks CK.MB [Mass/Vol] 1.12 ng/mL Normal <=3.60 [facility] Comment on above: Performed By: #### MILTON BENOIT #### [facility] [address] [place] [address] Dr. Manfred Brooks HSTROP 13.4 pg/mL Normal 4.0-51.3 The [facility] Comment on above: Result Comment: CUT- OFF POINTS HAVE BEEN ESTABLISHED BASED ON THE FOURTH UNIVERSAL DEFINITIONS OF MYOCARDIAL INFARCTION. THE UPPER REFERENCE LIMIT (URL) OF TROPONIN, DEFINED THE 99TH PERCENTILE OF cTnI DISTRIBUTION IN A REFERENCE POPULATION, HAS BEEN CONFIRMED THE DECISION THRESHOLD FOR [place] DIAGNOSIS. Performed By: #### MILTON BENOIT #### [facility] [address] [place] [address] Dr. Manfred Brooks MAHOGANY 38 ng/mL Normal 9-82 [facility] Comment on above: Performed By: #### MILTON BENOIT #### [facility] [address] [place] [address] Dr. Manfred Brooks CBC AUTO DIFFon 04-20-2022 BASO # 0.1 103/ul Normal 0.0-0.1 [facility] Comment on above: Performed By: #### MILTON BENOIT #### [facility] [address] [place] [address] Dr. Manfred Brooks Basophils/100 WBC (Bld) 1.0 % Normal 0.2-2.0 [facility] Comment on above: Performed By: #### ANU BENOITRO #### [facility] [address] [place] [address] Dr. Manfred Brooks EO # 0.2 103/ul Normal 0.0-0.7 [facility] Comment on above: Performed By: #### ANU BENOITRO #### [facility] [address] [place] [address] Dr. Manfred Brooks Eosinophils/100 WBC (Bld) 1.8 % Normal 0.9-7.0 [facility] Comment on above: Performed By: #### ANU BENOITRO #### [facility] [address] [place] [address] Dr. Manfred Brooks Erythrocyte distribution width (RBC) [Ratio] 14.2 % Normal 11.0-15.0 [facility] Comment on above: Performed By: #### ANU BENOITRO #### [facility] [address] [place] [address] Dr. Manfred Brooks Hematocrit (Bld) [Volume fraction] 43.5 % Normal 36.0-48.0 [facility] Comment on above: Performed By: #### ANU BENOITRO #### [facility] [address] [place] [address] Dr. Manfred Brooks Hemoglobin (Bld) [Mass/Vol] 13.9 g/dL Normal 12.0-16.0 [facility] Comment on above: Performed By: #### ANU BENOITRO #### [facility] [address] [place] [address] Dr. Manfred Brooks IG # 0.03 10e3/ul Normal 0.00-0.03 [facility] Comment on above: Performed By: #### ANU BENOITRO #### [facility] [address] [place] [address] Dr. Manfred Brooks IG % 0.3 % Normal 0.0-0.5 The [facility] Comment on above: Performed By: #### Nikolas HOGAN UMICRO #### [facility] [address] [place] [address] Dr. Manfred Brooks LYMPH # 2.6 103/ul Normal 1.2-3.8 [facility] Comment on above: Performed By: #### Nikolas HOGAN UMICRO #### [facility] [address] [place] [address] Dr. Manfred Brooks Lymphocytes/100 WBC (Bld) 29.8 % Normal 20.5-60.0 [facility] Comment on above: Performed By: #### Nikolas HOGAN UMICRO #### [facility] [address] [place] [address] Dr. Manfred Brooks MANUAL DIFF REQ NO Normal [facility] Comment on above: Performed By: #### Nikolas HOGAN UMICRO #### [facility] [address] [place] [address] Dr. Manfred Brooks MCH (RBC) [Entitic mass] 29.7 pg Normal 26.7-34.0 [facility] Comment on above: Performed By: #### Nikolas HGOAN UMICRO #### [facility] [address] [place] [address] Dr. Manfred Brooks MCHC (RBC) [Mass/Vol] 32.0 g/dL Normal 29.9-35.2 [facility] Comment on above: Performed By: #### Nikolas HOGAN UMICRO #### [facility] [address] [place] [address] Dr. Manfred Brooks MCV (RBC) [Entitic vol] 92.9 fL Normal 81.0-99.0 [facility] Comment on above: Performed By: #### Nikolas HOGAN UMICRO #### [facility] [address] [place] [address] Dr. Manfred Brooks MONO # 0.8 103/ul Normal 0.3-0.8 [facility] Comment on above: Performed By: #### Nikolas HOGAN UMICRO #### [facility] [address] [place] [address] Dr. Manfred Brooks Monocytes/100 WBC (Bld) 9.6 % Normal 1.7-12.0 [facility] Comment on above: Performed By: #### ANU BENOITRO #### [facility] [address] [place] [address] Dr. Manfred Brooks NEUT # 5.0 103/ul Normal 1.4-6.5 [facility] Comment on above: Performed By: #### ANU BENOITRO #### [facility] [address] [place] [address] Dr. Manfred Brooks Neutrophils/100 WBC (Bld) 57.5 % Normal 43.0-75.0 [facility] Comment on above: Performed By: #### ANU BENOITRO #### [facility] [address] [place] [address] Dr. Manfred Brooks Platelet mean volume (Bld) [Entitic vol] 10.1 fL Normal 9.5-13.5 [facility] Comment on above: Performed By: #### ANU BENOITRO #### [facility] [address] [place] [address] Dr. Manfred Brooks PLT 354 103/ul Normal 150-450 [facility] Comment on above: Performed By: #### ANU BENOITRO #### [facility] [address] [place] [address] Dr. Manfred Brooks RBC 4.68 106/ul Normal 4.20-5.40 [facility] Comment on above: Performed By: #### ANU BENOITRO #### [facility] [address] [place] [address] Dr. Manfred Brooks WBC 8.8 103/ul Normal 4.0-11.0 [facility] Comment on above: Performed By: #### ANU BENOITRO #### [facility] [address] [place] [address] Dr. Manfred Brooks CULTURE URINEon 04-20-2022 CULTURE URINE Culture Observations : LIGHT GROWTH OF MIXED GENITAL BETO. NO POTENTIAL PATHOGENS SEEN. Normal The [facility] Comment on above: Performed By: #### B JAMILAH DARNELL, CK #### [facility] [address] [address] [address] Manfred Brooks Covid-19 PCR ([facility])on 04-11 SARS-CoV-2 (COVID-19) RNA DAMIR+probe Ql (Unsp spec) Not detected Normal NOT DETECTED The [facility] Comment on above: Result Comment: When diagnostic [...] for this test is supported by the [employer] and Human [employer]'s declaration that [...] By: #### B JAMILAH DARNELL, CK #### [facility] [address] [address] [address] Manfred Brooks D-DIMERon 04-20-2022 D-DIMER 0.35 mg/L FEU Normal <=0.59 [facility] Comment on above: Performed By: #### E MILTON HOGAN #### [facility] [address] [address] [address] Manfred Brooks D-DIMER COMMENTS SEE BELOW Normal [facility] Comment on above: Result Comment: Incr [...] hospitalization. Performed By: #### ANU BENOITRO #### [facility] [address] [place] [address] Dr. Manfred Brooks PROF CHEM 8 (BAS METB)on Anion gap [Moles/Vol] 14.1 mmol/L Normal [facility] Comment on above: Performed By: #### ANU BENOITRO #### [facility] [address] [place] [address] Dr. Manfred Brooks Calcium [Mass/Vol] 9.3 mg/dL Normal 8.5-10.1 [facility] Comment on above: Performed By: #### ANU BENOITRO #### [facility] [address] [place] [address] Dr. Manfred Brooks Chloride [Moles/Vol] 107 mmol/L Normal 98-107 [facility] Comment on above: Performed By: #### ANU BENOITRO #### [facility] [address] [place] [address] Dr. Manfred Brooks CO2 [Moles/Vol] 27.8 mmol/L Normal 21.0-32.0 [facility] Comment on above: Performed By: #### ANU BENOITRO #### [facility] [address] [place] [address] Dr. Manfred Brooks Creatinine [Mass/Vol] 0.89 mg/dL Normal 0.55-1.02 [facility] Comment on above: Performed By: #### ANU BENOITRO #### [facility] [address] [place] [address] Dr. Manfred Brokos EGFR-AF GREEK >60 Normal >=60 [facility] Comment on above: Performed By: #### ANU BENOITRO #### [facility] [address] [place] [address] Dr. Manfred Brooks EGFR-NON AF GREEK >60 Normal >=60 [facility] Comment on above: Performed By: #### E RUR, UMICRO #### [facility] [address] [place] [address] Dr. Manfred Brooks Glucose [Mass/Vol] 129 mg/dL Critically high 74-106 [facility] Comment on above: Performed By: #### E SAMIRA, UMICRO #### [facility] [address] [place] [address] Dr. Manfred Brooks Potassium [Moles/Vol] 3.9 mmol/L Normal 3.5-5.1 [facility] Comment on above: Performed By: #### E SAMIRA, UMICRO #### [facility] [address] [place] [address] Dr. Manfred Brooks Sodium [Moles/Vol] 145 mmol/L Normal 136-145 [facility] Comment on above: Performed By: #### E SAMIRA, UMICRO #### [facility] [address] [place] [address] Dr. Manfred Brooks Urea nitrogen [Mass/Vol] 28.0 mg/dL Critically high 7.0-18.0 [facility] Comment on above: Performed By: #### Nikolas HOGAN, UMICRO #### [facility] [address] [place] [address] Dr. Manfred Brooks Urea nitrogen/Creatinine [Mass ratio] 31.5 mg/mg Normal [facility] Comment on above: Performed By: #### Nikolas HOGAN, UMICRO #### [facility] [address] [place] [address] Dr. Manfred Brooks T4on 04-20-2022 T4 [Mass/Vol] 8.10 ug/dL Normal 4.80-13.90 [facility] Comment on above: Performed By: #### B HOUSEHOLD REFRIGERATION MECHANIC, CMP #### [facility] [address] [place] [address] Dr. Manfred Brooks TSHon 04-20-2022 TSH 0.918 uIU/mL Normal 0.358-3.740 [facility] Comment on above: Performed By: #### B HOUSEHOLD REFRIGERATION MECHANIC, CMP #### [facility] [address] [place] [address] Dr. Manfred Brooks UA RANDOM W/MICROSCOPICon BACTERIA TRACE Abnormal NONE SEEN The [facility] Comment on above: Performed By: #### C VDTBH #### [facility] [address] [place] [address] Dr. Manfred Brooks Bilirubin Ql (U) Negative Normal NEGATIVE The [facility] Comment on above: Performed By: #### C VDTBH #### [facility] [address] [place] [address] Dr. Manfred Brooks CAST SEEN Abnormal NONE SEEN [facility] Comment on above: Performed By: #### C VDTBH #### [facility] [address] [place] [address] Dr. Manfred Brooks Clarity (U) CLEAR Normal CLEAR The [facility] Comment on above: Performed By: #### C VDTBH #### [facility] [address] [place] [address] Dr. Manfred Brooks Color (U) LT. YELLOW Normal YELLOW The [facility] Comment on above: Performed By: #### C VDTBH #### [facility] [address] [place] [address] Dr. Manfred Brooks Crystals LM Nom (Urine sed) NONE SEEN Normal NONE SEEN [facility] Comment on above: Performed By: #### C VDTBH #### [facility] [address] [place] [address] Dr. Manfred Brooks Epithelial cells LM Ql (Urine sed) MODERATE Abnormal NONE SEEN /RARE The [facility] Comment on above: Performed By: #### C VDTBH #### [facility] [address] [place] [address] Dr. Manfred Brooks Glucose Ql (U) Negative Normal NEGATIVE The [facility] Comment on above: Performed By: #### C VDTBH #### [facility] [address] [place] [address] Dr. Manfred Brooks Hemoglobin Ql (U) Negative Normal NEGATIVE The [facility] Comment on above: Performed By: #### C VDTBH #### [facility] [address] [place] [address] Dr. Manfred Brooks HYALINE CAST RARE Normal The [facility] Comment on above: Performed By: #### C VDTBH #### [facility] [address] [place] [address] Dr. Manfred Brooks Ketones Ql (U) Negative Normal NEGATIVE [facility] Comment on above: Performed By: #### C VDTBH #### [facility] [address] [place] [address] Dr. Manfred Brooks LEUKOCYTES TRACE Abnormal NEGATIVE The [facility] Comment on above: Performed By: #### C VDTBH #### [facility] [address] [place] [address] Dr. Manfred Brooks MUCOUS TRACE Abnormal NONE SEEN The [facility] Comment on above: Performed By: #### C VDTBH #### [facility] [address] [place] [address] Dr. Manfred Brooks Nitrite Ql (U) Negative Normal NEGATIVE The [facility] Comment on above: Performed By: #### C VDTBH #### [facility] [address] [place] [address] Dr. Manfred Brooks pH (U) 5.0 [pH] Normal 5-9 The [facility] Comment on above: Performed By: #### C VDTBH #### [facility] [address] [place] [address] Dr. Manfred Brooks RBC NONE SEEN Abnormal 0-2 The [facility] Comment on above: Performed By: #### C VDTBH #### [facility] [address] [place] [address] Dr. Manfred Brooks SPEC GRAVITY >=1.030 Abnormal 1.005-<=1.025 The [facility] Comment on above: Performed By: #### C VDTBH #### [facility] [address] [place] [address] Dr. Manfred Brooks UA PROTEIN Negative Normal NEGATIVE/ TRACE The [facility] Comment on above: Performed By: #### C VDTBH #### [facility] [address] [place] [address] Dr. Manfred Brooks Urobilinogen Qn (U) 0.2 {Antionette'U}/dL Normal 0.2 - 1. 0 [facility] Comment on above: Performed By: #### C VDTBH #### [facility] [address] [place] [address] Dr. Manfred Brooks WBC 2-5 Abnormal NONE SEEN The [facility] Comment on above: Performed By: #### C VDTBH #### [facility] [address] [place] [address] Dr. Manfred Brooks XR CHEST 1 Von [...] CHE JACOBS Date: 2022-04-20 07:57 Normal The [facility] INSULINon 02-05-2022 Insulin 21.9 uIU/mL Normal 2.6-24.9 [facility] Comment on above: Performed By: #### C VDTBH #### [facility] [address] [place] [address] Dr. Manfred Brooks BNPon 02-04-2022 Natriuretic peptide B (Bld) [Mass/Vol] 197.0 pg/mL Normal <=1,800.0 [facility] Comment on above: Performed By: #### E MILTON HOGAN #### [facility] [address] [place] [address] Dr. Manfred Brooks CBC AUTO DIFFon 02-04-2022 BASO # 0.1 103/ul Normal 0.0-0.1 [facility] Comment on above: Performed By: #### C BC #### [facility] [address] [place] [address] Dr. Manfred Brooks Basophils/100 WBC (Bld) 1.2 % Normal 0.2-2.0 [facility] Comment on above: Performed By: #### C BC #### [facility] [address] [place] [address] Dr. Manfred Brooks EO # 0.1 103/ul Normal 0.0-0.7 [facility] Comment on above: Performed By: #### C BC #### [facility] [address] [place] [address] Dr. Manfred Brooks Eosinophils/100 WBC (Bld) 2.1 % Normal 0.9-7.0 [facility] Comment on above: Performed By: #### C BC #### [facility] [address] [place] [address] Dr. Manfred Brooks Erythrocyte distribution width (RBC) [Ratio] 14.5 % Normal 11.0-15.0 [facility] Comment on above: Performed By: #### C BC #### [facility] [address] [place] [address] Dr. Manfred Brooks Hematocrit (Bld) [Volume fraction] 42.4 % Normal 36.0-48.0 [facility] Comment on above: Performed By: #### C BC #### [facility] [address] [place] [address] Dr. Manfred Brooks Hemoglobin (Bld) [Mass/Vol] 13.4 g/dL Normal 12.0-16.0 [facility] Comment on above: Performed By: #### C BC #### [facility] [address] [place] [address] Dr. Manfred Brooks IG # 0.02 10e3/ul Normal 0.00-0.03 [facility] Comment on above: Performed By: #### C BC #### [facility] [address] [place] [address] Dr. Manfred Brooks IG % 0.3 % Normal 0.0-0.5 [facility] Comment on above: Performed By: #### C BC #### [facility] [address] [place] [address] Dr. Manfred Brooks LYMPH # 2.2 103/ul Normal 1.2-3.8 [facility] Comment on above: Performed By: #### C BC #### [facility] [address] [place] [address] Dr. Manfred Brooks Lymphocytes/100 WBC (Bld) 35.6 % Normal 20.5-60.0 [facility] Comment on above: Performed By: #### C BC #### [facility] [address] [place] [address] Dr. Manfred Brooks MANUAL DIFF REQ NO Normal [facility] Comment on above: Performed By: #### C BC #### [facility] [address] [place] [address] Dr. Manfred Brooks MCH (RBC) [Entitic mass] 29.6 pg Normal 26.7-34.0 [facility] Comment on above: Performed By: #### C BC #### [facility] [address] [place] [address] Dr. Manfred Brooks MCHC (RBC) [Mass/Vol] 31.6 g/dL Normal 29.9-35.2 [facility] Comment on above: Performed By: #### C BC #### [facility] [address] [place] [address] Dr. Manfred Brooks MCV (RBC) [Entitic vol] 93.8 fL Normal 81.0-99.0 [facility] Comment on above: Performed By: #### C BC #### [facility] [address] [place] [address] Dr. Manfred Brooks MONO # 0.6 103/ul Normal 0.3-0.8 [facility] Comment on above: Performed By: #### C BC #### [facility] [address] [place] [address] Dr. Manfred Brooks Monocytes/100 WBC (Bld) 10.4 % Normal 1.7-12.0 [facility] Comment on above: Performed By: #### C BC #### [facility] [address] [place] [address] Dr. Manfred Brooks NEUT # 3.1 103/ul Normal 1.4-6.5 The [facility] Comment on above: Performed By: #### C BC #### [facility] [address] [place] [address] Dr. Manfred Brooks Neutrophils/100 WBC (Bld) 50.4 % Normal 43.0-75.0 [facility] Comment on above: Performed By: #### C BC #### [facility] [address] [address] [address] Manfred Brooks Platelet mean volume (Bld) [Entitic vol] 10.1 fL Normal 9.5-13.5 [facility] Comment on above: Performed By: #### C BC #### [facility] [address] [address] [address] Manfred Brooks PLT 310 103/ul Normal 150-450 [facility] Comment on above: Performed By: #### C BC #### [facility] [address] [address] [address] Manfred Brooks RBC 4.52 106/ul Normal 4.20-5.40 [facility] Comment on above: Performed By: #### C BC #### [facility] [address] [place] [address] Dr. Manfred Brooks WBC 6.1 103/ul Normal 4.0-11.0 [facility] Comment on above: Performed By: #### C BC #### [facility] [address] [place] [address] Dr. Manfred Brooks FREE THYROXINE INDEX T7on FTI 2.16 Normal [facility] Comment on above: Performed By: #### B MANN HSTROPN, CK #### [facility] [address] [place] [address] Dr. Manfred Brooks T3U 36.0 % Normal 23.5-40.5 [facility] Comment on above: Performed By: #### B MP, HSTROPN, CK #### [facility] [address] [place] [address] Dr. Manfred Brooks T4 [Mass/Vol] 6.00 ug/dL Normal 4.80-13.90 [facility] Comment on above: Performed By: #### B MANN, HSTROPN, CK #### [facility] [address] [place] [address] Dr. Manfred Brooks GLYCOHEMOGLOBIN A1Con 2021 ADA RECOMMENDATION SEE BELOW Normal [facility] Comment on above: Result Comment: ADA RECOMMENDED LIMIT 4.0 - 6.0 ADA THERAPEUTIC TARGET < 7.0 ACTION SUGGESTED > 7.0 Performed By: #### B JAMILAH DARNELL CK #### [facility] [address] [place] [address] Dr. Manfred Brooks Glucose [Mass/Vol] 114 mg/dL Normal [facility] Comment on above: Performed By: #### B JAMILAH DARNELL, CK #### [facility] [address] [address] [address] Manfred Brooks HbA1c (Bld) [Mass fraction] 5.6 % Normal 4.5-6.2 [facility] Comment on above: Performed By: #### B JAMILAH DARNELL, REY #### [facility] [address] [place] [address] Dr. Manfred Brooks IRONon 02-04-2022 Iron [Mass/Vol] 79.0 ug/dL Normal 50.0-170.0 [facility] Comment on above: Performed By: #### MILTON BENOIT #### [facility] [address] [place] [address] Dr. Manfred Brooks LIPID PROFILEon 02-04-2022 CHOL-HDL RATIO NORM SEE BELOW Normal [facility] Comment on above: Result Comment: 3.3 - 4.4 LOW RISK 4.4 - 7.1 AVERAGE RISK 7.1 - 11.0 MODERATE RISK >11.0 HIGH RISK Performed By: #### MILTON BENOIT #### [facility] [address] [place] [address] Dr. Manfred Brooks Cholesterol [Mass/Vol] 134 mg/dL Normal <=200 [facility] Comment on above: Performed By: #### MILTON BENOIT #### [facility] [address] [place] [address] Dr. Manfred Brooks Cholesterol in HDL [Mass/Vol] 41 mg/dL Normal 40-60 [facility] Comment on above: Performed By: #### MILTON BENOIT #### [facility] [address] [place] [address] Dr. Manfred Brooks Cholesterol in LDL [Mass/Vol] 62.0 mg/dL Normal [facility] Comment on above: Performed By: #### ANU BENOITRO #### [facility] [address] [place] [address] Dr. Manfred Brooks Cholesterol.total/Ch olesterol in HDL [Mass ratio] 3.3 {ratio} Normal [facility] Comment on above: Performed By: #### ANU BENOITRO #### [facility] [address] [place] [address] Dr. Manfred Brooks HDL NORMAL > or = 60 mg/dl - LO W CARDIOVASCULAR RISK <40 mg/dl - HIGH CARDIOVASCULAR RISK Normal [facility] Comment on above: Performed By: #### ANU BENOITRO #### [facility] [address] [place] [address] Dr. Manfred Brooks LDL CALC NORMAL SEE BELOW Normal [facility] Comment on above: Result Comment: <100 mg/dl OPTIMAL 100 - 129 mg/dl NEAR OR ABOVE OPTIMAL 130 - 159 mg/dl BORDERLINE HIGH 160 - 189 mg/dl HIGH >190 mg/dl VERY HIGH Performed By: #### ANU BENOITRO #### [facility] [address] [place] [address] Dr. Manfred Brooks Triglyceride [Mass/Vol] 155 mg/dL Critically high <=150 [facility] Comment on above: Performed By: #### ANU BENOITRO #### [facility] [address] [place] [address] Dr. Manfred Brooks VLDL CALC 31.0 mg/dL Normal [facility] Comment on above: Performed By: #### ANU BENOITRO #### [facility] [address] [place] [address] Dr. Manfred Brooks PROF 14(COMP METB)on 022 Albumin [Mass/Vol] 3.9 g/dL Normal 3.4-5.0 [facility] Comment on above: Performed By: #### B MP, HSTROPN, CK #### [facility] [address] [place] [address] Dr. Manfred Brooks Albumin/Globulin [Mass ratio] 1.2 {ratio} Normal [facility] Comment on above: Performed By: #### B MANN HSTROPN, CK #### [facility] [address] [place] [address] Dr. Manfred Brooks ALP [Catalytic activity/Vol] 63 U/L Normal 46-116 [facility] Comment on above: Performed By: #### B MANN, HSTROPN, CK #### [facility] [address] [place] [address] Dr. Manfred Brooks ALT [Catalytic activity/Vol] 25 U/L Normal 14-59 [facility] Comment on above: Performed By: #### B MANN, HSTROPN, CK #### [facility] [address] [place] [address] Dr. Manfred Brooks Anion gap [Moles/Vol] 10.8 mmol/L Normal [facility] Comment on above: Performed By: #### B MANN, HSTROPN, CK #### [facility] [address] [place] [address] Dr. Manfred Brooks AST [Catalytic activity/Vol] 14 U/L Critically low 15-37 [facility] Comment on above: Performed By: #### B MANN, HSTROPN, CK #### [facility] [address] [place] [address] Dr. Manfred Brooks Bilirubin [Mass/Vol] 0.6 mg/dL Normal 0.2-1.0 [facility] Comment on above: Performed By: #### B MANN, HSTROPN, CK #### [facility] [address] [place] [address] Dr. Manfred Brooks Calcium [Mass/Vol] 8.6 mg/dL Normal 8.5-10.1 [facility] Comment on above: Performed By: #### B MP, HSTROPN, CK #### [facility] [address] [place] [address] Dr. Manfred Brooks Chloride [Moles/Vol] 104 mmol/L Normal 98-107 [facility] Comment on above: Performed By: #### B MP, HSTROPN, CK #### [facility] [address] [address] [address] Manfred Brooks CO2 [Moles/Vol] 31.5 mmol/L Normal 21.0-32.0 [facility] Comment on above: Performed By: #### B MP, HSTROPN, CK #### [facility] [address] [address] [address] Manfred Brooks Creatinine [Mass/Vol] 0.67 mg/dL Normal 0.55-1.02 [facility] Comment on above: Performed By: #### B MP, HSTROPN, CK #### [facility] [address] [place] [address] Dr. Manfred Brooks EGFR-AF GREEK >60 Normal >=60 [facility] Comment on above: Performed By: #### B MP, HSTROPN, CK #### [facility] [address] [address] [address] Manfred Brooks EGFR-NON AF GREEK >60 Normal >=60 [facility] Comment on above: Performed By: #### B MP, HSTROPN, CK #### [facility] [address] [place] [address] Dr. Manfred Brooks Globulin (S) [Mass/Vol] 3.2 g/dL Normal [facility] Comment on above: Performed By: #### B MP, HSTROPN, CK #### [facility] [address] [address] [address] Manfred Brooks Glucose [Mass/Vol] 102 mg/dL Normal 74-106 [facility] Comment on above: Performed By: #### B MP, HSTROPN, CK #### [facility] [address] [place] [address] Dr. Manfred Brooks Potassium [Moles/Vol] 4.3 mmol/L Normal 3.5-5.1 [facility] Comment on above: Performed By: #### B MP, HSTROPN, CK #### [facility] [address] [place] [address] Dr. Manfred Brooks Protein [Mass/Vol] 7.1 g/dL Normal 6.1-8.2 [facility] Comment on above: Performed By: #### B MANN HSTROPN, CK #### [facility] [address] [address] [address] Manfred Brooks Sodium [Moles/Vol] 142 mmol/L Normal 136-145 [facility] Comment on above: Performed By: #### B MANN HSTROPN, CK #### [facility] [address] [place] [address] Dr. Manfred Brooks Urea nitrogen [Mass/Vol] 19.0 mg/dL Critically high 7.0-18.0 [facility] Comment on above: Performed By: #### B MANN HSTROPJim, CK #### [facility] [address] [place] [address] Dr. Manfred Brooks Urea nitrogen/Creatinine [Mass ratio] 28.4 mg/mg Normal [facility] Comment on above: Performed By: #### B MANN HSTROPN, CK #### [facility] [address] [place] [address] Dr. Manfred Brooks TSHon 02-04-2022 TSH 0.317 uIU/mL Critically low 0.470-4.680 [facility] Comment on above: Performed By: #### B MANN HSTROPN, CK #### [facility] [address] [place] [address] Dr. Manfred Brooks TSH RANGE SEE BELOW Normal [facility] Comment on above: Result Comment: <0.3 4 UIU/ml HYPERTHYROID 0.34-5.60 UIU/ml EUTHYROID >5.60 UIU/ml HYPOTHYROID Performed By: #### B MANN HSTROPN, CK #### [facility] [address] [place] [address] Dr. Manfred Brooks VITAMIN D 25 OHon 02-04-2022 VIT D 25-OH 35.9 ng/mL Normal [facility] Comment on above: Performed By: #### MILTON BENOIT #### [facility] [address] [place], [place] [address] Dr. Manfred Brooks VIT D RANGES SEE BELOW Normal [facility] Comment on above: Result Comment: <20 ng/mL Vit D deficient 20 - <30 ng/mL Vit D insufficient 30 - 100 ng/mL Vit D sufficient >100 ng/mL Potential Toxicity Performed By: #### E MILTON HOGAN #### [facility] [address] [place], [place] [address] Dr. Manfred Brooks Ambulatory Clinical Summaryo n 04-16-2021 Ambulatory Clinical Summary {[id number] Normal [facility] General Surgery Office/Clini c Noteon 04-16-2021 [...] Salvatore Ogden, JEM Only if needed [address] [place] [address]- Additional Instructions: Problem List/Past Medical [...] (COVID-19) mRNA BNT-[id number] vax 11/30/2020 Recorded Normal [facility] Comment on above: Result Comment: Elec tronically Signed By: IZZY REYES, Salvatore River\Date and Time Signed: 04/16/21 13:20 EDT Pathology Noteon 04-12-2021 Pathology Note [id number]. 00CD:[id number] [facility] Ambulatory Clinical Summaryo n 04-09-2021 Ambulatory Clinical Summary {[id number] [facility] Provider Letter FTon 03-29 Provider Letter [facility] March 29, 2021 Cam Bates, [address] [place] [address] Re: BETTY CAMARENA Date of : 1940 Thank you for your referral of Betty Camarena who was seen on consultation on March 21, 2021, for two moles on right cheek. An excisional biopsy is planned. I have enclosed my consultation note for your review. I will be happy to follow Betty. Sincerely, Salvatore Moore MD General Surgery [facility] Ambulatory Clinical Summaryo n 03-21-2021 Ambulatory Clinical Summary {[id number] [facility] Patient Educationon 03-21-20 21 Patient [...] your health care provider or diet and computer training specialist (dietitian). This may include: ? Eating [...] weight koehler (more content not included)... Normal [facility] Physician Referralon 021 Physician Referral [phone] [id number]:[id number] Normal [facility] Cardiovascular Lab Reporton 04-17-2020 Cardiovascular Lab Report [facility] Patient Name: [facility] MR #: [id number] Physician: Denisa Pitt of [place], M.D. Medicine Service Date: 04/16/2020 Division of Birthdate: 1940 Cardiology Room #: [facility] Cardiovascular Services [place] [address] [address] [place] [place] [address] Cardiovascular Laboratory Report INDICATION: The patient is [...] informed consent. She was brought to laborer heading in a fasting state. The left wrist area was prepped and draped in the usual fashion. Modified Raleigh's test was favorable on the left. Access in the left radial artery was obtained using micropuncture technique and ultrasound guidance. A 6-Macedonian x 11 cm Hydrophilic sheath was advanced. Verapamil was given through the sheath and heparin was administered intravenously. The JR4 diagnostic catheter was advanced over the angled Glidewire into the left ventricular cavity and used to perform left heart catheterization with measurement of pressures. Pullback across the aortic valve was performed with measurement of pressures. Bilateral selective coronary angiography was then performed using 6-Macedonian JL4 and JR4 diagnostic catheters. Catheters were [...] 40% proximal stenosis. SUMMARY OF FINDINGS: 1. Vzcg-pj-lyriavzb 2-vessel coronary artery disease with 30% mid LAD, 20% mid RCA, 40% distal RCA, 40% proximal PDA stenosis, but no occlusive disease and minimal disease in the circumflex vessel. 2. Nbpfvhfj-xa-wwepou elevation of LVEDP. 3. Uncontrolled systemic hypertension. [...] Alejandre M.D. Date Trans: 04/17/2020 09:09 A/anna [id number] cc: Cam Bates M.D. [address] [address] [facility] Encounters Encounter Date Encounter Type Care Provider Facility Start: 07-07-2025 End: 07-07-2025 ambulatory KRUNAL COATES [facility] Start: 12-26-2024 End: 12-26-2024 ambulatory DENISA ALEJANDRE [facility] Start: 01-19-2023 End: 01-20-2023 ambulatory LEANNA [...] End: 04-17-2020 Patient encounter procedure PROVIDER UNKNOWN Facility:[facility] Payers Date Payer Category Payer Medicare [id number] 1959 Private Health Insurance [facility] [id number] 1959 Private Health Insurance [id number] 1940 Unknown [id number] 2.16.8 [id number] 1940 Unknown [id number] 2.16.84 [id number] 1940 Unknown [id number] 2.16.84 [id number] 1942 Unknown [id number] 2.16.84 [id number] 1942 Unknown [id number] 2.16.84 [id number] 1942 Unknown [id number] 2.16.84 [id number] 1942 Unknown [id number] 2.16.84 [id number] 1942 Unknown [id number] 2.16.84 [id number] 1940 Unknown [id number] 2.16.84 [id number] Progress note 07-07-2025 Note Date & Type Note Facility 07-07-2025 Note SUBJECTIVE Reason for Visit: Betty Camarena is a 84 y.o. year old female patient being seen for follow-up visit palpitations getting worse HPI: Betty Camarena is a 84 y.o. year old female with significant medical history of CAD, PAF, hypertension, HFpEF, and carotid artery stenosis. 07/07/2025 office visit: Patient was seen evaluated in the office today, accompanied by her daughter. She reports chronic palpitations but they have increased in frequency recently over the last few weeks. She denies any chest pain, shortness of breath, lower extremity edema, or lightheadedness or dizziness. I reviewed her blood pressure log from home and her blood pressures ranged from 120-140 systolic. 12/16/2024 office visit (Dr. Alejandre): Betty Camarena is a 84 y.o. year old female patient being seen for 1 year follow up CAD, PAF, hypertension, chronic diastolic heart failure, and carotid artery stenosis. She had routine labs with lipid panel in March 2024. Patient presented to [facility] ED last month for chest pain. She says she made the mistake of lifting a heavy object. C/o more frequent episodes of palpitations, usually occurring at night when she lies down. Denies chest pain, LE edema, and bleeding on Eliquis. Says her BP at home today was 136/72. 01/19/2024 office visit (Kristin Padilla): After her last visit we had increased [...] breath, LE edema, HAMM, palpitations, lightness, dizziness. Medical History[1] Surgical History[2] Problem List[3] family history is not on file. Social History[4] OBJECTIVE Visit Vitals OB Status Postmenopausal Smoking Status Former Physical Exam Constitutional: General Appearance: well-developed, appears stated age. Level of Distress: no acute distress. Neck: Jugular Veins: normal jugular venous pressure. Lungs: Auscultation: no rales or rhonchi and normal breath sounds. Cardiovascular: Rate And Rhythm: regular Heart Sounds: normal S1 and s2; Systolic Murmur: not heard. Diastolic Murmur: not heard. Extremities: no edema Peripheral Pulses: Pulses: full and equal in all extremities except if noted. Abdomen: Inspection and Palpation: non distended or tender and soft. Musculoskeletal: Inspection: no joint tenderness or swelling. Neurologic: Gait: normal gait. Psychiatric: Mental Status: alert and normal affect. Skin: Inspection and Palpation: warm and dry. Allergies: Allergies[5] Outpatient Medications: Current Outpatient Medications Medication Instructions apixaban (Eliquis) 5 mg tablet Eliquis 5 mg tablet TAKE 1 TABLET BY MOUTH TWICE A DAY atorvastatin (Lipitor) 10 mg tablet atorvastatin 10 mg tablet TAKE 1 TABLET BY MOUTH ONCE A DAY ergocalciferol (Vitamin D-2) 1.25 MG (40948 Units) capsule Vitamin D furosemide (LASIX) 20 mg, oral, Daily PRN isosorbide mononitrate ER (Imdur) 60 mg 24 hr tablet isosorbide mononitrate ER 60 mg tablet,extended release 24 hr TAKE 1 TABLET BY MOUTH TWICE A DAY levothyroxine (SYNTHROID, LEVOXYL) 800 mcg, oral, Daily liothyronine (Cytomel) 5 mcg tablet 3 tablets, oral, Daily losartan (COZAAR) 100 mg, oral, Daily metoprolol succinate XL (Toprol-XL) 50 mg 24 hr tablet TAKE TWO TABLETS BY MOUTH IN THE MORNING AND ONE TABLET DAILY IN THE EVENING DO NOT CRUSH OR CHEW. metoprolol succinate XL (TOPROL-XL) 100 mg, oral, Daily, Do not crush or chew. spironolactone (ALDACTONE) 12.5 mg, oral, Daily Recent Labs: No visits with results with (more content not included)... [facility] Progress note 12-26-2024 Note Date & Type Note Facility 12-26-2024 Note ID Cardiology - [facility] Subjective Betty Camarena is a 84 y.o. year old female patient being seen for 1 year follow up CAD, PAF, hypertension, chronic diastolic heart failure, and carotid artery stenosis. She had routine labs with lipid panel in March 2024. Patient presented to [facility] ED last month for chest pain. She says she made the mistake of lifting a heavy object. C/o more frequent episodes of palpitations, usually occurring at night when she lies down. Denies chest pain, LE edema, and bleeding on Eliquis. Says her BP at home today was 136/72. Patient Active Problem List Diagnosis Coronary artery disease involving [place] coronary artery of [place] heart without angina pectoris Chronic diastolic heart [...] Currently Comment: holiday Drug use: Never DAVE Betty is seen in follow-up. She is a [...] evaluated in the emergency room at the [facility] with flank pain, fever and was diagnosed [...] , Rfl: ergocalciferol (Vitamin D-2) 1.25 MG (21435 Units) capsule, Vitamin D, Disp: , Rfl: [...] (100 mg) b (more content not included)... [facility] Clinical Note 04-09-2021 Note Date & [...] SARS-CoV-2 (COVID-19) mRNA BNT-162b2 vax 11/30/2020 Recorded [facility] Comment on above: Result Comment: Elec [...] Aspirin [address] Daniel (patient support associate). Hx of Hypertension, Diastolic heart failure, mitral [...] Directed Allergies C (more content not included)... [facility] Comment on above: Result Comment: Elec [...] and content) DATE CREATED AUTHOR 05/03/2020 [facility] DATE CREATED AUTHOR AUTHOR'S ORGANIZ ATION 04/17/2021 [facility] DATE CREATED AUTHOR AUTHOR'S ORGANIZ ATION 01/25/2023 [facility] DATE CREATED AUTHOR AUTHOR'S ORGANIZ ATION 07/14/2025 [facility] FOR RECORDS PERTAINING TO PATIENTS WHO ARE [...] BE BASED ON THE PRIMARY CLINICAL RECORDS. [facility]. provides no warranty or guarantee of the accuracy or completeness of information in this document.
== END 2025-07-19 13:52 | disposition home or self-care (01) ==
LOC: CARD 13:51
PROVIDERS: PCP Family Medicine
DX: R00.2 Palpitations (principal); I48.0 Paroxysmal atrial fibrillation; I11.0 Hypertensive heart disease with heart failure
CPT/HCPCS: 93306

== ENCOUNTER 2025-07-24 15:09 | Outpatient (OUT) | payer MEDICARE, OTHER, SELFPAY ==
--- OUTSIDE RECORDS SUMMARY | 2025-07-24 15:14 | XMS_ITS | Patient Health Record ---
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 Role Phone Malvin Chen Primary Care Provider Allergies Allergen (clinical drug ingredient) Drug/Non Drug Allergy documented on EMR Reaction Allergy Type Onset Date Status diltiazem Cardizem hives Drug Allergy Active digoxin Digoxin nausea Drug Allergy Active Results Component Value Reference Range Notes BNP Reviewed date:03/22/2025 12:57:29 PM Interpretation: Performing Lab: Notes/Report: [facility] , NT Pro B Type Natriuretic Pept 130.0 <=1800.0 pg/mL Performing Lab: see note ML - The [facility] LB BNP Reviewed date:12/09/2024 12:51:47 PM Interpretation: Performing Lab: Notes/Report: [facility] , NT Pro B Type Natriuretic Pept 82.0 <=1800.0 pg/mL Performing Lab: see note ML - The [facility] LB CBC AUTO DIFF Reviewed date:12/09/2024 12:51:47 PM Interpretation: Performing Lab: Notes/Report: [facility] , White Blood Count 5.5 4.0-11.0 10 3/uL Red Blood Count 4.50 4.20-5.40 10 6/uL Hemoglobin 13.5 12.0-16.0 g/dL Hematocrit 41.4 36.0-48.0 % Mean Corpuscular Volume 92.0 81.0-99.0 fL Mean Corpuscular Hemoglobin 30.0 26.7-34.0 pg Mean Corpuscular HGB Conc 32.6 29.9-35.2 g/dL Red Cell Distribution Width 14.1 11.0-15.0 % Platelet Count 276 150-450 10 3/uL Mean Platelet Volume 10.4 9.5-13.5 fL Neutrophils Percent Auto 47.5 43.0-75.0 % Lymphocytes Percent Auto 38.4 20.5-60.0 % Monocytes Percent Auto 10.1 1.7-12.0 % Eosinophils Percent Auto 2.5 0.9-7.0 % Basophils Percent Auto 1.1 0.2-2.0 % Immature Granulocytes Pct Auto 0.4 0.0-0.5 % Neutrophils Absolute Auto 2.6 1.4-6.5 10 3/uL Lymphocytes Absolute Auto 2.1 1.2-3.8 10 3/uL Monocytes Absolute Auto 0.6 0.3-0.8 10 3/uL Eosinophils Absolute Auto 0.1 0.0-0.7 10 3/uL Basophils Absolute Auto 0.1 0.0-0.1 10 3/uL Immature Granulocytes Abs Auto 0.02 0.00-0.03 10 3/uL Performing Lab: see note ML - [facility] LB PROF 14(COMP METB) Reviewed date:12/09/2024 12:51:47 PM Interpretation: Performing Lab: Notes/Report: [facility] , Sodium 141 136-145 mmol/L Potassium 3.5 3.5-5.1 mmol/L Chloride 105 98-107 mmol/L Carbon Dioxide 27.2 21.0-32.0 mmol/L Anion Gap 12.3 Glucose 121 74-106 mg/dL Blood Urea Nitrogen 15.0 7.0-18.0 mg/dL Creatinine 0.91 0.55-1.02 mg/dL Estimated GFR ( [place] >60 >=60 mL/min/1.73m 2 Estimated GFR (Non- Lary 59 >=60 mL/min/1.73m 2 BUN Creatinine Ratio 16.5 Calcium 9.5 8.5-10.1 mg/dL Bilirubin Total 0.6 0.2-1.0 mg/dL Aspartate Amino Transferase 18 15-37 U/L Alanine Aminotransferase 18 14-59 U/L Alkaline Phosphatase 67 46-116 U/L Total Protein 7.2 6.4-8.2 g/dL Albumin Level 4.0 3.4-5.0 g/dL Globulin 3.2 Albumin Globulin Ratio 1.3 Performing Lab: see note ML - [facility] Prothrombin Time INR Reviewed date:12/09/2024 12:51:47 PM Interpretation: Performing Lab: Notes/Report: [facility] , Prothrombin Time 11.1 9.0-11.6 sec INR 1.05 2.5-3.5 RECURRENT THROMBOSIS 2.0-3.0 CONDITIONS NOT LISTED BELOW 2.5-3.5 FOR PROSTHETIC HEART VALVE REPLACEMENT DESIRED INR: Performing Lab: see note - [facility] Troponin I High Sensitivity Reviewed date:12/09/2024 12:51:47 PM Interpretation: Performing Lab: Notes/Report: [facility] , Troponin I High Sensitivity 6.4 4.0-51.3 pg/m L 99TH PERCENTILE = 51.4 PG/ML DIAGNOSIS. HAS BEEN CONFIRMED THE DECISION THRESHOLD FOR LA REFERENCE LIMIT (URL) OF TROPONIN, DEFINED THE 99TH USED IN ISOLATION BUT SHOULD BE INTERPRETED IN CONJUNCTION CUT-OFF POINTS HAVE BEEN ESTABLISHED BASED ON THE FOURTH PERCENTILE OF cTnI DISTRIBUTION IN A REFERENCE POPULATION, WITH OTHER DIAGNOSTIC AND CLINICAL INFORMATION. UNIVERSAL DEFINITION OF MYOCARDIAL INFARCTION. THE UPPER NOTE: HIGH-SENSITIVITY TROPONIN ASSAY IS NOT INTENDED TO BE Performing Lab: see note - [facility] PROF CHEM 8 (BAS METB) Reviewed date:12/27/2024 08:42:10 PM Interpretation: Performing Lab: Notes/Report: [facility] , Sodium 143 136-145 mmol/L Potassium 4.0 3.5-5.1 mmol/L Chloride 106 98-107 mmol/L Carbon Dioxide 28.7 21.0-32.0 mmol/L Anion Gap 12.3 Glucose 101 74-106 mg/dL Blood Urea Nitrogen 18.0 7.0-18.0 mg/dL Creatinine 0.78 0.55-1.02 mg/dL Estimated GFR ( [place] >60 >=60 mL/min/1.73m 2 Estimated GFR (Non- Lary >60 >=60 mL/min/1.73m 2 BUN Creatinine Ratio 23.1 Calcium 9.4 8.5-10.1 mg/dL Performing Lab: see note - [facility] CBC AUTO DIFF Reviewed date:03/22/2025 12:57:29 PM Interpretation: Performing Lab: Notes/Report: [facility] , White Blood Count 5.2 4.0-11.0 10 3/uL Red Blood Count 4.29 4.20-5.40 10 6/uL Hemoglobin 13.1 12.0-16.0 g/dL Hematocrit 40.3 36.0-48.0 % Mean Corpuscular Volume 93.9 81.0-99.0 fL Mean Corpuscular Hemoglobin 30.5 26.7-34.0 pg Mean Corpuscular HGB Conc 32.5 29.9-35.2 g/dL Red Cell Distribution Width 13.4 11.0-15.0 % Platelet Count 251 150-450 10 3/uL Mean Platelet Volume 10.7 9.5-13.5 fL Neutrophils Percent Auto 51.9 43.0-75.0 % Lymphocytes Percent Auto 35.3 20.5-60.0 % Monocytes Percent Auto 9.7 1.7-12.0 % Eosinophils Percent Auto 1.7 0.9-7.0 % Basophils Percent Auto 1.2 0.2-2.0 % Immature Granulocytes Pct Auto 0.2 0.0-0.5 % Neutrophils Absolute Auto 2.7 1.4-6.5 10 3/uL Lymphocytes Absolute Auto 1.8 1.2-3.8 10 3/uL Monocytes Absolute Auto 0.5 0.3-0.8 10 3/uL Eosinophils Absolute Auto 0.1 0.0-0.7 10 3/uL Basophils Absolute Auto 0.1 0.0-0.1 10 3/uL Immature Granulocytes Abs Auto 0.01 0.00-0.03 10 3/uL Performing Lab: see note ML - [facility] FREE T3 Reviewed date:03/22/2025 12:57:29 PM Interpretation: Performing Lab: Notes/Report: [facility] , Free T3 2.61 2.18-3.98 pg/mL Performing Lab: see note ML - [facility] LB GLYCOHEMOGLOBIN A1C Reviewed date:03/22/2025 12:57:29 PM Interpretation: Performing Lab: Notes/Report: [facility] , Glycohemoglobin A1C 6.0 4.5-6.2 % ADA RECOMMENDED LIMIT 4.0 - 6.0 ADA THERAPEUTIC TARGET < 7.0 ACTION SUGGESTED > 7.0 Estimated Average Glucose 126 Performing Lab: see note ML - [facility] LB IRON Reviewed date:03/22/2025 12:57:29 PM Interpretation: Performing Lab: Notes/Report: [facility] , Iron 98.0 50.0-170.0 ug/dL Performing Lab: see note ML - [facility] LB LIPID PROFILE Reviewed date:03/22/2025 12:57:29 PM Interpretation: Performing Lab: Notes/Report: [facility] , Triglycerides 195 <=150 mg/dL Cholesterol 114 <=200 mg/dL HDL Cholesterol 45 40-60 mg/dL > or =60 mg/dl - LOW CARDIOVASCULAR RISK <40 mg/dl - HIGH CARDIOVASCULAR RISK LDL Cholesterol Calculated 30.0 100-129 mg/dl NEAR OR ABOVE OPTIMAL 130-159 mg/dl BORDERLINE HIGH 160-189 mg/dl HIGH >190 mg/dl VERY HIGH <100 mg/dl OPTIMAL VLDL CHOLESTEROL 39.0 Chol HDL Ratio 2.5 7.1 - 11.0 MODERATE RISK >11.0 HIGH RISK 3.3 - 4.4 LOW RISK 4.4 - 7.1 AVERAGE RISK Performing Lab: see note ML - [facility] LB PROF 14(COMP METB) Reviewed date:03/22/2025 12:57:29 PM Interpretation: Performing Lab: Notes/Report: [facility] , Sodium 142 136-145 mmol/L Potassium 4.6 3.5-5.1 mmol/L Chloride 104 98-107 mmol/L Carbon Dioxide 30.5 21.0-32.0 mmol/L Anion Gap 12.1 Glucose 96 74-106 mg/dL Blood Urea Nitrogen 22.0 7.0-18.0 mg/dL Creatinine 0.96 0.55-1.02 mg/dL Estimated GFR ( [place] >60 >=60 mL/min/1.73m 2 Estimated GFR (Non- Lary 56 >=60 mL/min/1.73m 2 BUN Creatinine Ratio 22.9 Calcium 9.3 8.5-10.1 mg/dL Bilirubin Total 0.5 0.2-1.0 mg/dL Aspartate Amino Transferase 17 15-37 U/L Alanine Aminotransferase 20 14-59 U/L Alkaline Phosphatase 69 46-116 U/L Total Protein 7.1 6.4-8.2 g/dL Albumin Level 4.0 3.4-5.0 g/dL Globulin 3.1 Albumin Globulin Ratio 1.3 Performing Lab: see note ML - [facility] LB T4 Reviewed date:03/22/2025 12:57:29 PM Interpretation: Performing Lab: Notes/Report: [facility] , T4 Thyroxine 5.00 4.80-13.90 ug/dL Performing Lab: see note ML - [facility] LB TSH Reviewed date:03/22/2025 12:57:29 PM Interpretation: Performing Lab: Notes/Report: [facility] , Thyroid Stimulating Hormone 0.064 0.358-3.740 u IU/mL Performing Lab: see note ML - [facility] LB BNP Reviewed date:07/07/2025 11:58:07 AM Interpretation: Performing Lab: Notes/Report: [facility] , NT Pro B Type Natriuretic Pept 253.0 <=1800.0 pg/mL Performing Lab: see note ML - [facility] LB CBC AUTO DIFF Reviewed date:07/07/2025 11:58:07 AM Interpretation: Performing Lab: Notes/Report: [facility] , White Blood Count 6.0 4.0-11.0 10 3/uL Red Blood Count 4.18 4.20-5.40 10 6/uL Hemoglobin 12.6 12.0-16.0 g/dL Hematocrit 39.6 36.0-48.0 % Mean Corpuscular Volume 94.7 81.0-99.0 fL Mean Corpuscular Hemoglobin 30.1 26.7-34.0 pg Mean Corpuscular HGB Conc 31.8 29.9-35.2 g/dL Red Cell Distribution Width 13.1 11.0-15.0 % Platelet Count 292 150-450 10 3/uL Mean Platelet Volume 10.2 9.5-13.5 fL Neutrophils Percent Auto 69.5 43.0-75.0 % Lymphocytes Percent Auto 18.3 20.5-60.0 % Monocytes Percent Auto 9.3 1.7-12.0 % Eosinophils Percent Auto 1.7 0.9-7.0 % Basophils Percent Auto 1.0 0.2-2.0 % Immature Granulocytes Pct Auto 0.2 0.0-0.5 % Neutrophils Absolute Auto 4.2 1.4-6.5 10 3/uL Lymphocytes Absolute Auto 1.1 1.2-3.8 10 3/uL Monocytes Absolute Auto 0.6 0.3-0.8 10 3/uL Eosinophils Absolute Auto 0.1 0.0-0.7 10 3/uL Basophils Absolute Auto 0.1 0.0-0.1 10 3/uL Immature Granulocytes Abs Auto 0.01 0.00-0.03 10 3/uL Performing Lab: see note ML - [facility] FREE T3 Reviewed date:07/07/2025 11:58:07 AM Interpretation: Performing Lab: Notes/Report: [facility] T3 5.74 2.18-3.98 pg/mL Performing Lab: see note ML - [facility] FREE T4 Reviewed date:07/07/2025 12:30:53 PM Interpretation: Performing Lab: Notes/Report: [facility] T4 1.03 0.76-1.46 ng/dL Performing Lab: see note - [facility] PROF 14(COMP METB) Reviewed date:07/07/2025 11:58:07 AM Interpretation: Performing Lab: Notes/Report: [facility] , Sodium 142 136-145 mmol/L Potassium 4.3 3.5-5.1 mmol/L Chloride 105 98-107 mmol/L Carbon Dioxide 29.6 21.0-32.0 mmol/L Anion Gap 11.7 Glucose 125 74-106 mg/dL Blood Urea Nitrogen 14.0 7.0-18.0 mg/dL Creatinine 0.81 0.55-1.02 mg/dL Estimated GFR ( [place] >60 >=60 mL/min/1.73m 2 Estimated GFR (Non- L[place] >60 >=60 mL/min/1.73m 2 BUN Creatinine Ratio 17.3 Calcium 9.7 8.5-10.1 mg/dL Bilirubin Total 0.6 0.2-1.0 mg/dL Aspartate Amino Transferase 13 15-37 U/L Alanine Aminotransferase 19 14-59 U/L Alkaline Phosphatase 78 46-116 U/L Total Protein 7.8 6.4-8.2 g/dL Albumin Level 3.9 3.4-5.0 g/dL Globulin 3.9 Albumin Globulin Ratio 1.0 Performing Lab: see note ML - [facility] LB TSH Reviewed date:07/07/2025 11:58:07 AM Interpretation: Performing Lab: Notes/Report: [facility] , Thyroid Stimulating Hormone 0.030 0.358-3.740 u IU/mL Performing Lab: see note ML - [facility] LB CA echo doppler complete Reviewed date:07/20/2025 12:46:51 PM Interpretation: Performing Lab: Notes/Report: Source Facility: [facility] [place] [address] [place] [address] Cardiology Report Signed Patient: BETTY CAMARENA MR#: [id number] : 1940 Acct:[id number] Age/Sex: 84 / F ADM Date: 07/19/25 Loc: CARD Attending Dr: Krunal Coates NP Ordering Physician: Krunal Coates NP Date of Service: 07/19/25 Procedure(s): CA echo doppler complete Accession Number(s): [id number] cc: Cam Chen M.D.; Krunal Coates NP Patient Name: BETTY CAMARENA MR#: [id number] : 1940 Exam Date: 07/19/2025 Ordering Doctor: KRUNAL COATES ECHOCARDIOGRAM REPORT PROCEDURE: CA ECHO DOPPLER COMPLETE INDICATIONS: Palpitations, atrial fibrillation - ablation, hypertension COMPARISON: None. DESCRIPTION: COMPLETE ECHOCARDIOGRAM Real-time transthoracic echocardiography with 2D, M-mode, spectral and color flow Doppler performed. QUALITY: Technical quality was good. LEFT VENTRICLE: Normal chamber size. Mild concentric left ventricular hypertrophy. Normal systolic function. Estimated LVEF is 55 to 60%. LV EF: Normal left ventricular ejection fraction, (>55%). DIASTOLIC: Grade 1 diastolic dysfunction. ATRIAL SEPTUM: Visually appears intact. LEFT ATRIUM: Mild chamber dilatation. RIGHT ATRIUM: Normal chamber size. RIGHT VENTRICLE: Normal chamber size. Normal right ventricular systolic function. TRICUSPID VALVE: Normal mobility and thickness. No stenosis with trivial regurgitation. Doppler studies reveal mildly (35-45) elevated right sided pressures. RVSP 41 mmHg MITRAL VALVE: Normal mobility and thickness. No evidence of mitral valve stenosis. Mild mitral annular calcification. Trivial mitral regurgitation. AORTIC VALVE: Normal trileaflet appearance. Mildly calcified aortic valve. Normal leaflet mobility. No evidence of aortic valve stenosis. No aortic regurgitation. AORTIC ROOT: Normal diameter and appearance, measuring 3.5 cm. PULMONIC VALVE: Normal thickness and mobility. No stenosis. No regurgitation. PERICARDIUM: No evidence of pericardial effusion. IVC: Collapses with inspiration. PLEURA: CONCLUSION: 1. Mild concentric left ventricular hypertrophy with normal systolic function. Estimated LVEF is 55 to 60%. 2. Normal right ventricular size and systolic function. 3. Mild left atrial dilatation. 4. Grade 1 diastolic dysfunction. 5. No significant valvular dysfunction. 6. Mildly elevated right-sided pressures. Adult Echocardiography Procedure Report Left Ventricle LVEDD (3.7 - 5.6 cm): 4.16 cm LVESD (2.2 - 4.0 cm): 3.62 cm LVIVS thickness (0.6 - 1.2 cm): 1.11 cm LVPW thickness (0.5 - 1.0 cm): 1.05 cm e': 0.06 m/s E - e': 9.33 LVOT Max Gradient: 3.33 mm[Hg] LVOT Area (cm2): 0.91 m/s Peak Velocity (LVOT): 0.91 m/s Mean Velocity (LVOT): 0.60 m/s LVOT Diameter 2.16 cm Left Atrium LA Volume Index (2D A2C): 22.05 ml/m2 Left Atrium Systolic Dimension: 3.66 cm Mitral Valve MV E to A Ratio: 0.57 Mitral Valve A-Wave Peak Velocity: 1.03 m/s Mitral Valve E-Wave Peak Velocity: 0.59 m/s Right Ventricle Aorta AO Root Diam: 3.53 cm Aortic Valve AoV Area (Peak Jm): 2.80 cm2, 2.80 cm2 AoV Area (VTI): 3.40 cm2, 3.40 cm2 Peak Velocity(Antegrade Flow): 1.19 m/s Peak Gradient(Antegrade Flow): 5.70 mm[Hg] Mean Velocity(Antegrade Flow): 0.69 m/s Mean Gradient(Antegrade Flow): 2.44 mm[Hg] Velocity Time Integral: 23.58 cm Tricuspid Valve Peak Velocity (Regurgitant Flow): 3.07 m/s Pulmonic Valve Peak Gradient: 5.02 mm[Hg], 5.46 mm[Hg] Right Atrium Right Atrium Systolic Pressure: 30.74 ml, 30.74 ml Dictated by: Denisa Knapp M.D. on 07/20/2025 at 09:31 Approved by: Denisa Knapp M.D. on 07/20/2025 at 09:34 Dictated By: DENISA KNAPP Signed By: 07/20/25935 DD/ 3 TD/TT: Metrology Specialist: UA RANDOM W or MICROSCOPIC Reviewed date:01/26/2025 09:08:54 PM Interpretation: Performing Lab: Notes/Report: [facility] , Color Urine LT. YELLOW YELLOW Clarity Urine CLEAR CLEAR Specific [place] Urine 1.025 1.005-1.025 pH Urine 5.5 5.0-9.0 Protein Urine TRACE NEG/TRACE mg/dL Glucose Urine UA NEGATIVE NEGATIVE mg/dL Bilirubin Urine NEGATIVE NEGATIVE Ketones Urine NEGATIVE NEGATIVE mg/dL Blood Urine LARGE NEGATIVE Nitrite Urine NEGATIVE NEGATIVE Urobilinogen Urine 0.2 0.2-1.0 EU/dL Leukocyte Esterase Urine NEGATIVE NEGATIVE WBC Urine NONE SEEN NONE SEEN #/HPF RBC Urine 5-10 0-2 #/HPF Bacteria Urine NONE SEEN NONE SEEN #/HPF Mucus Urine NONE SEEN NONE SEEN Squamous Epithelial Cell Urine RARE NONE/RARE #/LPF Crystals Seen? Seen None Seen #/HPF Amorphous Sediment Urine FEW Cast Seen? NONE SEEN NONE SEEN #/LPF Yeast Urine SEEN NONE SEEN Urine Culture Indicated NO Performing Lab: see note ML - [facility] LB PROF 14(COMP METB) Reviewed date:01/26/2025 09:08:54 PM Interpretation: Performing Lab: Notes/Report: [facility] , Sodium 144 136-145 mmol/L Potassium 3.6 3.5-5.1 mmol/L Chloride 106 98-107 mmol/L Carbon Dioxide 28.0 21.0-32.0 mmol/L Anion Gap 13.6 Glucose 111 74-106 mg/dL Blood Urea Nitrogen 26.0 7.0-18.0 mg/dL Creatinine 1.08 0.55-1.02 mg/dL Estimated GFR ( [place] 59 >=60 mL/min/1.73m 2 Estimated GFR (Non- Lary 49 >=60 mL/min/1.73m 2 BUN Creatinine Ratio 24.1 Calcium 9.1 8.5-10.1 mg/dL Bilirubin Total 0.4 0.2-1.0 mg/dL Aspartate Amino Transferase 18 15-37 U/L Alanine Aminotransferase 20 14-59 U/L Alkaline Phosphatase 63 46-116 U/L Total Protein 7.0 6.4-8.2 g/dL Albumin Level 3.9 3.4-5.0 g/dL Globulin 3.1 Albumin Globulin Ratio 1.3 Performing Lab: see note ML - [facility] LB CBC AUTO DIFF Reviewed date:01/26/2025 09:08:54 PM Interpretation: Performing Lab: Notes/Report: [facility] , White Blood Count 6.4 4.0-11.0 10 3/uL Red Blood Count 4.13 4.20-5.40 10 6/uL Hemoglobin 12.6 12.0-16.0 g/dL Hematocrit 38.6 36.0-48.0 % Mean Corpuscular Volume 93.5 81.0-99.0 fL Mean Corpuscular Hemoglobin 30.5 26.7-34.0 pg Mean Corpuscular HGB Conc 32.6 29.9-35.2 g/dL Red Cell Distribution Width 14.0 11.0-15.0 % Platelet Count 254 150-450 10 3/uL Mean Platelet Volume 10.8 9.5-13.5 fL Neutrophils Percent Auto 50.5 43.0-75.0 % Lymphocytes Percent Auto 38.7 20.5-60.0 % Monocytes Percent Auto 8.1 1.7-12.0 % Eosinophils Percent Auto 1.7 0.9-7.0 % Basophils Percent Auto 0.8 0.2-2.0 % Immature Granulocytes Pct Auto 0.2 0.0-0.5 % Neutrophils Absolute Auto 3.3 1.4-6.5 10 3/uL Lymphocytes Absolute Auto 2.5 1.2-3.8 10 3/uL Monocytes Absolute Auto 0.5 0.3-0.8 10 3/uL Eosinophils Absolute Auto 0.1 0.0-0.7 10 3/uL Basophils Absolute Auto 0.1 0.0-0.1 10 3/uL Immature Granulocytes Abs Auto 0.01 0.00-0.03 10 3/uL Performing Lab: see note ML - [facility] LB XR chest 2V Reviewed date:12/09/2024 12:51:47 PM Interpretation: Performing Lab: Notes/Report: Source Facility: [place] [address] [place] [address] XRay Report Signed Patient: BETTY CAMARENA MR#: [id number] : 1940 Acct:[id number] Age/Sex: 84 / F ADM Date: 12/09/24 Loc: ER Attending Dr: Ordering Physician: Perry Skinner Date of Service: 12/09/24 Procedure(s): XR chest 2V Accession Number(s): [id number] cc: Cam Chen M.D.; Perry Skinner [place] [address] Patient Name: BETTY CAMARENA MRN: [id number] date: 1940 Sex: F Assigned Patient Location: ER Current Patient Location: ER Accession/Order Number: [id number] Exam Date: 12/09/2024 11:23 Report Date: 12/09/2024 11:27 At the request of: PERRY SKINNER MD Procedure: XR chest 2V PA AND LATERAL CHEST: CLINICAL HISTORY: Stabbing left-sided chest pain COMPARISON: 01/13/2024 Mild atelectasis or scarring is seen at the lower lungs. There is no additional consolidation, effusion or pneumothorax. The cardiac, hilar and mediastinal silhouettes are stable. There is no vascular congestion. The visualized bony thorax is intact. Mild degenerative changes are visualized at the spine. XR/XR chest 2V IMPRESSION: BASILAR ATELECTASIS AND/OR SCARRING. NO OTHER ACUTE FINDINGS. Impression dictated by: Johana Dorantes M.D.12/09/2024 11:27 AM Dictation Location: [place] [address] Electronically authenticated by: [id number] Y Date: 12/09/2024 11:27 Dictated By: Johana Dorantes M.D. Signed By: 12/09/24 1129 DD/ 1127 TD/TT: Metrology Specialist: ECG 12 lead Reviewed date:12/11/2024 12:51:16 PM Interpretation: Performing Lab: Notes/Report: Source Facility: [facility]-[address] [place] [address] [place] [address] Electrocardiograph Report Signed Patient: BETTY CAMARENA MR#: [id number] : 1940 Acct:[id number] Age/Sex: 84 / F ADM Date: 12/09/24 Loc: ER Attending Dr: Ordering Physician: Perry Skinner Date of Service: 12/09/24 Procedure(s): ECG 12 lead Accession Number(s): [id number] cc: [facility] Test Date: 2024-12-09 Pat Name: BETTY CAMARENA Department: Room: - 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 Signed By: 12/11/24 0609 DD/ 1024 TD/TT: Metrology Specialist: Reason For Referral No Information Medications Medication SIG (Take, Route, Frequency, Duration) Notes Start Date End Date Status Eliquis 5 MG TAKE ONE TABLET BY M OUTH TWICE A DAY; Duration: 90 days Active Spironolactone 25 MG TAKE 0.5 TABLETS (1 2.5 MG) BY MOUTH IN THE MORNING. Oral; Duration: 90 days Active Losartan Potassium 50 MG 1 tablet Orally Once a day; Duration: 90 days Active Ergocalciferol 1.25 MG (05432 UT) 1 capsule Orally daily; Duration: 90 days 03/21/2025 Active Metoprolol Succinate ER 50 MG 2 tabs in AM and 1 tab at HS Orally daily; Duration: 90 days Active Atorvastatin Calcium 10 mg TAKE ONE TABL ET BY MOUTH ONCE DAILY; Duration: 90 days Active Liothyronine Sodium 25 MCG TAKE 1/2 TABL ET BY MOUTH DAILY ON AN EMPTY STOMACH; Duration: 90 days Active Isosorbide Mononitrate ER 60 MG 1 tablet in the morning Orally bid; Duration: 90 days Active Levothyroxine Sodium 75 MCG TAKE ONE TAB LET BY MOUTH ONCE DAILY IN THE MORNING ON AN EMPTY STOMACH; Duration: 90 days Active Social History Tobacco Use: Social History Observation Description Date Details (start date - stop date) Former Smoker 03/12/1960 - 03/12/2005 Tobacco Control (Standard) Question Answer Notes Tobacco use: Former smoker When did you start smoking? 03/12/1960 When did you stop smoking? 03/12/2005 How long has it been since you last smoked? 5-10 years AUDIT-C (Standard) Question Answer Notes Did you have a drink containing alcohol in the p ast year? No Points 0 Interpretation Negative Problems Problem Type SNOMED Code ICD Code Onset Dates Problem Status W/U Status Risk Notes Problem Lumbar radiculopathy (264446935) Radiculopathy, lumbar region (M54.16) Active confirmed Problem Palpitations (02317190) Palpitations (R00.2) Active confirmed Problem Chest pain (03294835) Chest pain (R07.9) Active confirmed Problem Hyperlipidemia (35272329) Hyperlipidemia (E78.5) Active confirmed Problem Hypertension (24957995) Hypertension (I10) Active confirmed Problem Osteoarthritis (634732949) Osteoarthritis (M19.90) Active confirmed Problem Hypothyroidism (55614950) Hypothyroidism (E03.9) Active confirmed Problem Atrial fibrillation (disorder) (62655626) Afib (I48.91) Active confirmed Problem Atrial fibrillation (80903039) AF (paroxysmal atrial fibrillation) (I48.0) Active confirmed Problem Coronary artery disease (60454253) CAD (coronary artery disease) (I25.10) Active confirmed Problem Carotid artery disease (907744583) Carotid artery disease (I77.9) Active confirmed Problem Diastolic heart failure (558396512) Diastolic heart failure (I50.30) Active confirmed Problem Peripheral neuropath y (255588997) Peripheral neuropathy (G62.9) Active confirmed Problem Osteopenia (780017505) Osteopenia (M85.80) Active confirmed Problem Carotid artery stenosis (83297455) Carotid artery stenosis (I65.29) Active confirmed Problem Dyspnea (741484026) Dyspnea (R06.00) Active con firmed Problem Coronary atherosclerosis (650277903) Coronary atherosclerosis (I25.10) Active confirmed Problem Migraine (31976137) Migraine (G43.909) Active c onfirmed Problem Hypertriglyceridemia (004407723) Hypertriglyceridemia (E78.1) Active confirmed Problem Murmur (816405006) Murmur (R01.1) Active confir med Problem Iron deficiency anemia (55021804) Iron deficiency anemia (D50.9) Active confirmed Problem Diverticulitis (14131333) Diverticulitis (K57.92) Active confirmed Problem Near syncope (367839061) Near syncope (R55) Active confirmed Problem Mitral insufficiency (39664972) Mitral insufficiency (I34.0) Active confirmed Problem Vitamin D deficiency (32438751) Low vitamin D level (E55.9) Active confirmed Problem Overweight (336054841) Over weight (E66.3) Active confirmed Problem Paroxysmal supraventricular tachycardia (67678627) Atrial tachycardia, paroxysmal (I47.1) Active confirmed Problem Fibrocystic breast changes (27370727) Fibrocystic breast disease (N60.19) Active confirmed Problem Mass of neck (541098346) Mass in neck (R22.1) Active confirmed Problem Menopause ovarian failure (485864413) Menopause ovarian failure (E28.39) Active confirmed Problem Atrial fibrillation (99844759) Paroxysmal atrial fibrillation with RVR (I48.0) Active confirmed Problem Arthralgia of temporomandibular joint (15560866) 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 Problem 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 Vital Signs Blood pressure diastolic 90 mm Hg 03/21/2025 Height 59 in 03/21/2025 Blood pressure systolic 178 mm Hg 03/21/2025 Weight 164.6 lbs 03/21/2025 BMI 33.24 kg/m2 03/21/2025 Encounters Encounter Location Date Provider Diagnosis [facility] [place] [address] 03/21/2025 Malvin Hoy Palpitations R00.2 ; Dyspnea R06.00 ; AF (paroxysmal atrial fibrillation) I48.0 ; Hypertension I10 ; CAD (coronary artery disease) I25.10 ; Hyperlipidemia E78.5 and Hypothyroidism E03.9 [facility] [address] [facility] [place] [address] 01/23/2025 Malvin Chen [facility] [address] [facility] [place] [address] 02/21/2025 Malvin Saraviachris [facility] [address] [facility] [place] [address] 03/22/2025 Malvin Manjitchris Menopause ovarian fa ilure E28.39 [facility] [address] [facility] [place] [address] 04/20/2025 Malvin Saraviachris [facility] [address] [facility] [place] [address] 07/07/2025 Malvin Jana Hyperthyroidism E05. 90 [facility] [address] 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) 07/07/2025 Hyperthyroidism (ICD-10 - E05.90) 03/21/2025 AF (paroxysmal atrial fibrillation) (ICD-10 - I48.0) 03/21/2025 Hypertension (ICD-10 - I10) 03/21/2025 CAD (coronary artery disease) (ICD-10 - I25.10) 03/21/2025 Hyperlipidemia (ICD-10 - E78.5) 03/21/2025 Hypothyroidism (ICD-10 - E03.9) Plan Of Treatment Pending Test Test Name Order Date CMP (COMPLETE METABOLIC PANEL) HEMOGLOBIN A1C (GLYCO) 03/21/2025 HEMOGLOBIN A1C (GLYCO) 03/14/2024 IRON, TOTAL 03/21/2025 IRON, TOTAL 03/14/2024 LIPID PANEL (CHOL/TRIG/HDL/LDL) 03/14/20 24 LIPID PANEL (CHOL/TRIG/HDL/LDL) 03/21/20 25 CBC WITH DIFF 03/14/2024 VITAMIN D, 25 LEVEL (TOTAL) 03/14/2024 DEXA Axial Skeleton (hips, pelvis, spine )* 03/22/2025 CMP - Comprehensive Metabolic Panel 08/12 LIPID PROFILE 05/13/2023 THYROID PANEL (T4/TSH/FREE T3) 3 THYROID PANEL (T4/TSH/FREE T3) 3 THYROID PANEL (T4/TSH/FREE T3) 4 THYROID PANEL (T4/TSH/FREE T3) 4 THYROID PANEL (T4/TSH/FREE T3) 5 THYROID PANEL (T4/TSH/FREE T3) 5 CMP (COMP MET J[place]) w/eGFR CKD-EPI 2024 CBC WITH DIFF 03/21/2025 Insurance Providers Payer Name Payer Address Payer Phone Subscriber Number Group Number Insured Name Patient Relationship to Insured Coverage Start Date Coverage End Date [place] [address] [place] [address] [phone] [id number] Betty Camarena Self - patient is the insured 3 [employer] INS[employer]ANCE [address] [place] [phone] [id number] Betty Camarena Self - patient is the insured Medical (General) History Medical History History ICD Code Radiculopathy, lumbar region M54.16 Over weight E66.3 AF (paroxysmal atrial fibrillation) I48. 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 Taylor 04/23/2023
--- OUTSIDE RECORDS SUMMARY | 2025-07-24 15:15 | XMS_ITS | CCD ---
Author Organization [facility] CliniSyal Care Team Providers Care Pilot Can Router Name Role Phone UNKNOWN, PROVIDER Admitting Unavailable [...] dilTIAZem; Translations: [DILTIAZEM] Drug Allergy 11-19-2015 [facility] Repository (1 source) Digoxin; Translations: [DIGOXIN] Drug Allergy 12-24-2022 [facility] Repository Problems Active Problems Problem Classification [...] disease (3 sources) Atherosclerotic heart disease of [place] coronary artery without angina pectoris; Translations: [ASHD [place] CA W/O ANGINA PECTORIS] Onset: 02-05-2022 Chronic [...] 05-19-2022 Chronic Other aftercare (1 source) 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 Bates. Patient verbalized understanding. Normal [facility] Office Visiton 07-07-2025 Follow-up visit [id number] Jessica Camarena ra 1940 F Date Provider Department Center 07/07/2025 [id number], AD[facility] Family History Family Status - Relation Status Age at Mother Father Level of Service:39369 [place] OFFICE/OUTPATIENT ESTABLISHED MOD MDM 30 MIN Reason for Visit and Comments: Coronary Artery Disease [187] Congestive Heart Failure [127] Atrial Fibrillation [80] Hypertension [856066] Palpitations [] - Patient is here today for a follow up appointment. Patient complains of an increased in palpitations Dizziness [442382] Nausea and belching [Other] Fatigue [46] Shortness of Breath [] Normal [facility] 36on 01-04-2025 36 MD Selena Oviedo MA Blood test was normal, waiting for the carotid ultrasound result. MD Selena Oviedo MA Her carotid ultrasound showed stable carotid disease. Follow up as planned. Spoke to patient advised patient of her test results per Dr. Medrano. Patient states ok, she will follow up in 1 year. 01/04/2025 [facility] Office Visiton 12-26-2024 Follow-up visit [id number] Jessica Camarena ra Alonso 1940 F Date Provider Department Center 12/26/2024 Joyce-DENISA ALEJANDRE [facility] No family history on file Level of Service:60379 [place] OFFICE/OUTPATIENT ESTABLISHED MOD MDM 30 MIN [facility] PROF CHEM 8 (BAS METB)on Anion gap [Moles/Vol] 12.8 mmol/L Normal [facility] Comment on above: Performed By: #### B MANN HSTROPN, CK #### [facility] [address] [place] [address] Dr. Manfred Brooks Calcium [Mass/Vol] 9.5 mg/dL Normal 8.5-10.1 [facility] Comment on above: Performed By: #### B MANN HSTROPN, CK #### [facility] [address] [place] [address] Dr. Manfred Brooks Chloride [Moles/Vol] 106 mmol/L Normal 98-107 [facility] Comment on above: Performed By: #### B MANN HSTROPN, CK #### [facility] [address] [place] [address] Dr. Manfred Brooks CO2 [Moles/Vol] 27.3 mmol/L Normal 21.0-32.0 [facility] Comment on above: Performed By: #### B MANN HSTROPN, CK #### [facility] [address] [place] [address] Dr. Manfred Brooks Creatinine [Mass/Vol] 0.93 mg/dL Normal 0.55-1.02 [facility] Comment on above: Performed By: #### B MANN HSTROPN, CK #### [facility] [address] [address] [address] Manfred Brooks EGFR-AF [place]OU[place]OREAN >60 Normal >=60 [facility] Comment on above: Performed By: #### B MP, HSTROPN, CK #### [facility] [address] [address] [address] Manfred Brooks EGFR-NON AF [place]OREAN 58 mL/min/1.73m2 Critically low >=60 [facility] Comment on above: Performed By: #### B MP, HSTROPN, CK #### [facility] [address] [address] [address] Manfred Brooks Glucose [Mass/Vol] 116 mg/dL Critically high 74-106 [facility] Comment on above: Performed By: #### B MP, HSTROPN, CK #### [facility] [address] [place] [address] Dr. Manfred Brooks Potassium [Moles/Vol] 4.1 mmol/L Normal 3.5-5.1 [facility] Comment on above: Performed By: #### B MP, HSTROPN, CK #### [facility] [address] [address] [address] Manfred Brooks Sodium [Moles/Vol] 142 mmol/L Normal 136-145 [facility] Comment on above: Performed By: #### B MP, HSTROPN, CK #### [facility] [address] [address] [address] Manfred Brooks Urea nitrogen [Mass/Vol] 19.0 mg/dL Critically high 7.0-18.0 [facility] Comment on above: Performed By: #### B MP, HSTROPN, CK #### [facility] [address] [place] [address] Dr. Manfred Brooks Urea nitrogen/Creatinine [Mass ratio] 20.4 mg/mg Normal [facility] Comment on above: Performed By: #### B MP, HSTROPN, CK #### [facility] [address] [address] [address] Manfred Brooks CBC AUTO DIFFon 01-09-2023 BASO # 0.1 103/ul Normal 0.0-0.1 [facility] Comment on above: Performed By: #### C VDTBH #### [facility] [address] [place] [address] Dr. Manfred Brooks Basophils/100 WBC (Bld) 0.7 % Normal 0.2-2.0 [facility] Comment on above: Performed By: #### C VDTBH #### [facility] [address] [place] [address] Dr. Manfred Brooks EO # 0.1 103/ul Normal 0.0-0.7 [facility] Comment on above: Performed By: #### C VDTBH #### [facility] [address] [place] [address] Dr. Manfred Brooks Eosinophils/100 WBC (Bld) 1.9 % Normal 0.9-7.0 [facility] Comment on above: Performed By: #### C VDTBH #### [facility] [address] [place] [address] Dr. Manfred Brooks Erythrocyte distribution width (RBC) [Ratio] 15.5 % Critically high 11.0-15.0 [facility] Comment on above: Performed By: #### C VDTBH #### [facility] [address] [place] [address] Dr. Manfred Brooks Hematocrit (Bld) [Volume fraction] 39.1 % Normal 36.0-48.0 [facility] Comment on above: Performed By: #### C VDTBH #### [facility] [address] [place] [address] Dr. Manfred Brooks Hemoglobin (Bld) [Mass/Vol] 12.6 g/dL Normal 12.0-16.0 [facility] Comment on above: Performed By: #### C VDTBH #### [facility] [address] [place] [address] Dr. Manfred Brooks IG # 0.02 10e3/ul Normal 0.00-0.03 [facility] Comment on above: Performed By: #### C VDTBH #### [facility] [address] [address] [address] Manfred Brooks IG % 0.3 % Normal 0.0-0.5 [facility] Comment on above: Performed By: #### C VDTBH #### [facility] [address] [address] [address] Manfred Brooks LYMPH # 2.5 103/ul Normal 1.2-3.8 [facility] Comment on above: Performed By: #### C VDTBH #### [facility] [address] [address] [address] Manfred Brooks Lymphocytes/100 WBC (Bld) 36.2 % Normal 20.5-60.0 [facility] Comment on above: Performed By: #### C VDTBH #### [facility] [address] [place] [address] Dr. Manfred Brooks MANUAL DIFF REQ NO Normal [facility] Comment on above: Performed By: #### C VDTBH #### [facility] [address] [place] [address] Dr. Manfred Brooks MCH (RBC) [Entitic mass] 29.0 pg Normal 26.7-34.0 [facility] Comment on above: Performed By: #### C VDTBH #### [facility] [address] [place] [address] Dr. Manfred Brooks MCHC (RBC) [Mass/Vol] 32.2 g/dL Normal 29.9-35.2 [facility] Comment on above: Performed By: #### C VDTBH #### [facility] [address] [place] [address] Dr. Manfred Brooks MCV (RBC) [Entitic vol] 89.9 fL Normal 81.0-99.0 [facility] Comment on above: Performed By: #### C VDTBH #### [facility] [address] [place] [address] Dr. Manfred Brooks MONO # 0.6 103/ul Normal 0.3-0.8 [facility] Comment on above: Performed By: #### C VDTB #### [facility] [address] [place] [address] Dr. Manfred Brooks Monocytes/100 WBC (Bld) 9.2 % Normal 1.7-12.0 [facility] Comment on above: Performed By: #### C VDTBH #### [facility] [address] [place] [address] Dr. Manfred Brooks NEUT # 3.5 103/ul Normal 1.4-6.5 [facility] Comment on above: Performed By: #### C VDTBH #### [facility] [address] [place] [address] Dr. Manfred Brooks Neutrophils/100 WBC (Bld) 51.7 % Normal 43.0-75.0 [facility] Comment on above: Performed By: #### C VDTBH #### [facility] [address] [place] [address] Dr. Manfred Brooks Platelet mean volume (Bld) [Entitic vol] 11.3 fL Normal 9.5-13.5 [facility] Comment on above: Performed By: #### C VDTBH #### [facility] [address] [place] [address] Dr. Manfred Brooks PLT 215 103/ul Normal 150-450 [facility] Comment on above: Performed By: #### C VDTBH #### [facility] [address] [place] [address] Dr. Manfred Brooks RBC 4.35 106/ul Normal 4.20-5.40 [facility] Comment on above: Performed By: #### C VDTBH #### [facility] [address] [place] [address] Dr. Manfred Brooks WBC 6.8 103/ul Normal 4.0-11.0 [facility] Comment on above: Performed By: #### C VDTBH #### [facility] [address] [place] [address] Dr. Manfred Brooks CPKon 01-09-2023 CK [Catalytic activity/Vol] 121 U/L Normal 26-192 [facility] Comment on above: Performed By: #### B MP, HSTROPN, CK #### [facility] [address] [place] [address] Dr. Manfred Brooks PROF CHEM 8 (BAS METB)on Anion gap [Moles/Vol] 14.2 mmol/L Normal [facility] Comment on above: Performed By: #### B MP, HSTROPN, CK #### [facility] [address] [address] [address] Manfred Brooks Calcium [Mass/Vol] 9.3 mg/dL Normal 8.5-10.1 [facility] Comment on above: Performed By: #### B MP, HSTROPN, CK #### [facility] [address] [place] [address] Dr. Manfred Brooks Chloride [Moles/Vol] 103 mmol/L Normal 98-107 [facility] Comment on above: Performed By: #### B MP, HSTROPN, CK #### [facility] [address] [place] [address] Dr. Manfred Brooks CO2 [Moles/Vol] 30.5 mmol/L Normal 21.0-32.0 [facility] Comment on above: Performed By: #### B MP, HSTROPN, CK #### [facility] [address] [place] [address] Dr. Manfred Brooks Creatinine [Mass/Vol] 0.76 mg/dL Normal 0.55-1.02 [facility] Comment on above: Performed By: #### B MP, HSTROPN, CK #### [facility] [address] [place] [address] Dr. Manfred Brooks EGFR-AF [place] >60 Normal >=60 [facility] Comment on above: Performed By: #### B MP, HSTROPN, CK #### [facility] [address] [place] [address] Dr. Manfred Brooks EGFR-NON AF [place] >60 Normal >=60 [facility] Comment on above: Performed By: #### B MP, HSTROPN, CK #### [facility] [address] [place] [address] Dr. Manfred Brooks Glucose [Mass/Vol] 97 mg/dL Normal 74-106 [facility] Comment on above: Performed By: #### B MP HSTROPN, CK #### [facility] [address] [address] [address] Manfred Brooks Potassium [Moles/Vol] 4.7 mmol/L Normal 3.5-5.1 [facility] Comment on above: Performed By: #### B MP, HSTROPN, CK #### [facility] [address] [address] [address] Manfred Brooks Sodium [Moles/Vol] 143 mmol/L Normal 136-145 [facility] Comment on above: Performed By: #### B MP, HSTROPN, CK #### [facility] [address] [place] [address] Dr. Manfred Brooks Urea nitrogen [Mass/Vol] 16.0 mg/dL Normal 7.0-18.0 [facility] Comment on above: Performed By: #### B MP, HSTROPN, CK #### [facility] [address] [place] [address] Dr. Manfred Brooks Urea nitrogen/Creatinine [Mass ratio] 21.1 mg/mg Normal [facility] Comment on above: Performed By: #### B MP, HSTROPN, CK #### [facility] [address] [place] [address] Dr. Manfred Brooks TROPONIN, HIGH SENSITIVITYon 01-09-2023 HSTROP 6.1 pg/mL Normal 4.0-51.3 [facility] Comment on above: Result Comment: CUT- OFF POINTS HAVE BEEN ESTABLISHED BASED ON THE FOURTH UNIVERSAL DEFINITIONS OF MYOCARDIAL INFARCTION. THE UPPER REFERENCE LIMIT (URL) OF TROPONIN, DEFINED THE 99TH PERCENTILE OF cTnI DISTRIBUTION IN A REFERENCE POPULATION, HAS BEEN CONFIRMED THE DECISION THRESHOLD FOR ID DIAGNOSIS. Performed By: #### B MP, HSTROPN, CK #### [facility] [address] [place] [address] Dr. Manfred Brooks XR CHEST 1 Von [...] NICOLE CLINE Date: 2023-01-09 08:12 Normal [facility] CBC AUTO DIFFon 01-07-2023 BASO # 0.1 103/ul Normal 0.0-0.1 [facility] Comment on above: Performed By: #### B MANN HSTROPN, CK #### [facility] [address] [address] [address] Manfred Brooks Basophils/100 WBC (Bld) 0.8 % Normal 0.2-2.0 [facility] Comment on above: Performed By: #### B MP, HSTROPN, CK #### [facility] [address] [address] [address] Manfred Brooks EO # 0.1 103/ul Normal 0.0-0.7 [facility] Comment on above: Performed By: #### B MANN, HSTROPN, CK #### [facility] [address] [address] [address] Manfred Brooks Eosinophils/100 WBC (Bld) 2.4 % Normal 0.9-7.0 [facility] Comment on above: Performed By: #### B MP, HSTROPN, CK #### [facility] [address] [address] [address] Manfred Brooks Erythrocyte distribution width (RBC) [Ratio] 15.6 % Critically high 11.0-15.0 [facility] Comment on above: Performed By: #### B MP, HSTROPN, CK #### [facility] [address] [address] [address] Manfred Brooks Hematocrit (Bld) [Volume fraction] 36.6 % Normal 36.0-48.0 [facility] Comment on above: Performed By: #### B MP, HSTROPN, CK #### [facility] [address] [place] [address] Dr. Manfred Brooks Hemoglobin (Bld) [Mass/Vol] 11.8 g/dL Critically low 12.0-16.0 [facility] Comment on above: Result Comment: RON ENT RECIEVED FLUIDS YESTERDAY AFTER MORNING CBC Performed By: #### B MP, HSTROPN, CK #### [facility] [address] [place] [address] Dr. Manfred Brooks IG # 0.01 10e3/ul Normal 0.00-0.03 [facility] Comment on above: Performed By: #### B MP, HSTROPN, CK #### [facility] [address] [place] [address] Dr. Manfred Brooks IG % 0.2 % Normal 0.0-0.5 [facility] Comment on above: Performed By: #### B MP, HSTROPN, CK #### [facility] [address] [place] [address] Dr. Manfred Brooks LYMPH # 2.1 103/ul Normal 1.2-3.8 [facility] Comment on above: Performed By: #### B MP, HSTROPN, CK #### [facility] [address] [place] [address] Dr. Manfred Brooks Lymphocytes/100 WBC (Bld) 35.1 % Normal 20.5-60.0 [facility] Comment on above: Performed By: #### B MP, HSTROPN, CK #### [facility] [address] [address] [address] Manfred Brooks MANUAL DIFF REQ NO Normal [facility] Comment on above: Performed By: #### B MP, HSTROPN, CK #### [facility] [address] [place] [address] Dr. Manfred Brooks MCH (RBC) [Entitic mass] 28.9 pg Normal 26.7-34.0 [facility] Comment on above: Performed By: #### B MP, HSTROPN, CK #### [facility] [address] [place] [address] Dr. Manfred Brooks MCHC (RBC) [Mass/Vol] 32.2 g/dL Normal 29.9-35.2 [facility] Comment on above: Performed By: #### B MP HSTROPN, CK #### [facility] [address] [place] [address] Dr. Manfred Brooks MCV (RBC) [Entitic vol] 89.7 fL Normal 81.0-99.0 [facility] Comment on above: Performed By: #### B MP HSTROPN, CK #### [facility] [address] [place] [address] Dr. Manfred Brooks MONO # 0.6 103/ul Normal 0.3-0.8 [facility] Comment on above: Performed By: #### B MP, HSTROPN, CK #### [facility] [address] [place] [address] Dr. Manfred Brooks Monocytes/100 WBC (Bld) 9.4 % Normal 1.7-12.0 [facility] Comment on above: Performed By: #### B MP HSTROPN, CK #### [facility] [address] [place] [address] Dr. Manfred Brooks NEUT # 3.1 103/ul Normal 1.4-6.5 [facility] Comment on above: Performed By: #### B MP, HSTROPN, CK #### [facility] [address] [place] [address] Dr. Manfred Brooks Neutrophils/100 WBC (Bld) 52.1 % Normal 43.0-75.0 [facility] Comment on above: Performed By: #### B MP HSTROPN, CK #### [facility] [address] [place] [address] Dr. Manfred Brooks Platelet mean volume (Bld) [Entitic vol] 10.3 fL Normal 9.5-13.5 [facility] Comment on above: Performed By: #### B MP, HSTROPN, CK #### [facility] [address] [place] [address] Dr. Manfred Brooks PLT 252 103/ul Normal 150-450 [facility] Comment on above: Performed By: #### B MP, HSTROPN, CK #### [facility] [address] [place] [address] Dr. Manfred Brooks RBC 4.08 106/ul Critically low 4.20-5.40 [facility] Comment on above: Performed By: #### B MP, HSTROPN, CK #### [facility] [address] [place] [address] Dr. Manfred Brooks WBC 5.9 103/ul Normal 4.0-11.0 [facility] Comment on above: Performed By: #### B MP, HSTROPN, CK #### [facility] [address] [place] [address] Dr. Manfred Brooks DIGOXINon 01-07-2023 DIG 0.5 ng/mL Critically low 0.9-2.0 [facility] Comment on above: Performed By: #### MILTON BENOIT #### [facility] [address] [place] [address] Dr. Manfred Brooks PROF 14(COMP METB)on 023 Albumin [Mass/Vol] 3.6 g/dL Normal 3.4-5.0 [facility] Comment on above: Performed By: #### C VDTBH #### [facility] [address] [place] [address] Dr. Manfred Brooks Albumin/Globulin [Mass ratio] 1.3 {ratio} Normal [facility] Comment on above: Performed By: #### C VDTBH #### [facility] [address] [place] [address] Dr. Manfred Brooks ALP [Catalytic activity/Vol] 67 U/L Normal 46-116 [facility] Comment on above: Performed By: #### C VDTBH #### [facility] [address] [place] [address] Dr. Manfred Brooks ALT [Catalytic activity/Vol] 23 U/L Normal 14-59 [facility] Comment on above: Performed By: #### C VDTBH #### [facility] [address] [place] [address] Dr. Manfred Brooks Anion gap [Moles/Vol] 10.8 mmol/L Normal [facility] Comment on above: Performed By: #### C VDTBH #### [facility] [address] [place] [address] Dr. Manfred Brooks AST [Catalytic activity/Vol] 14 U/L Critically low 15-37 [facility] Comment on above: Performed By: #### C VDTBH #### [facility] [address] [place] [address] Dr. Manfred Brooks Bilirubin [Mass/Vol] 0.7 mg/dL Normal 0.2-1.0 [facility] Comment on above: Performed By: #### C VDTBH #### [facility] [address] [place] [address] Dr. Manfred Brooks Calcium [Mass/Vol] 8.7 mg/dL Normal 8.5-10.1 [facility] Comment on above: Performed By: #### C VDTBH #### [facility] [address] [place] [address] Dr. Manfred Brooks Chloride [Moles/Vol] 106 mmol/L Normal 98-107 [facility] Comment on above: Performed By: #### C VDTBH #### [facility] [address] [place] [address] Dr. Manfred Brooks CO2 [Moles/Vol] 29.8 mmol/L Normal 21.0-32.0 [facility] Comment on above: Performed By: #### C VDTBH #### [facility] [address] [place] [address] Dr. Manfred Brooks Creatinine [Mass/Vol] 0.77 mg/dL Normal 0.55-1.02 [facility] Comment on above: Performed By: #### C VDTBH #### [facility] [address] [place] [address] Dr. Manfred Brooks EGFR-AF [place]ORE[place] >60 Normal >=60 [facility] Comment on above: Performed By: #### C VDTBH #### [facility] [address] [place] [address] Dr. Manfred Brooks EGFR-NON AF [place] >60 Normal >=60 [facility] Comment on above: Performed By: #### C VDTBH #### [facility] [address] [address] [address] Manfred Brooks Globulin (S) [Mass/Vol] 2.7 g/dL Normal [facility] Comment on above: Performed By: #### C VDTBH #### [facility] [address] [place] [address] Dr. Manfred Brooks Glucose [Mass/Vol] 99 mg/dL Normal 74-106 [facility] Comment on above: Performed By: #### C VDTBH #### [facility] [address] [place] [address] Dr. Manfred Brooks Potassium [Moles/Vol] 3.6 mmol/L Normal 3.5-5.1 [facility] Comment on above: Performed By: #### C VDTBH #### [facility] [address] [place] [address] Dr. Manfred Brooks Protein [Mass/Vol] 6.3 g/dL Critically low 6.4-8.2 [facility] Comment on above: Performed By: #### C VDTBH #### [facility] [address] [place] [address] Dr. Manfred Brooks Sodium [Moles/Vol] 143 mmol/L Normal 136-145 [facility] Comment on above: Performed By: #### C VDTBH #### [facility] [address] [place] [address] Dr. Manfred Brooks Urea nitrogen [Mass/Vol] 19.0 mg/dL Critically high 7.0-18.0 [facility] Comment on above: Performed By: #### C VDTBH #### [facility] [address] [place] [address] Dr. Manfred Brooks Urea nitrogen/Creatinine [Mass ratio] 24.7 mg/mg Normal [facility] Comment on above: Performed By: #### C VDTB #### [facility] [address] [place] [address] Dr. Manfred Brooks BNPon 01-06-2023 Natriuretic peptide B (Bld) [Mass/Vol] 186.0 pg/mL Normal <=1,800.0 [facility] Comment on above: Performed By: #### E MILTON HOGAN #### [facility] [address] [place] [address] Dr. Manfred Brooks CBC AUTO DIFFon 01-06-2023 BASO # 0.1 103/ul Normal 0.0-0.1 [facility] Comment on above: Performed By: #### B APPRENTICE PLUMBER, CMP #### [facility] [address] [place] [address] Dr. Manfred Brooks Basophils/100 WBC (Bld) 1.2 % Normal 0.2-2.0 [facility] Comment on above: Performed By: #### B APPRENTICE PLUMBER, CMP #### [facility] [address] [place] [address] Dr. Manfred Brooks EO # 0.1 103/ul Normal 0.0-0.7 [facility] Comment on above: Performed By: #### B APPRENTICE PLUMBER, CMP #### [facility] [address] [place] [address] Dr. Manfred Brooks Eosinophils/100 WBC (Bld) 2.1 % Normal 0.9-7.0 [facility] Comment on above: Performed By: #### B APPRENTICE PLUMBER, CMP #### [facility] [address] [place] [address] Dr. Manfred Brooks Erythrocyte distribution width (RBC) [Ratio] 15.2 % Critically high 11.0-15.0 [facility] Comment on above: Performed By: #### B APPRENTICE PLUMBER, CMP #### [facility] [address] [place] [address] Dr. Manfred Brooks Hematocrit (Bld) [Volume fraction] 42.3 % Normal 36.0-48.0 [facility] Comment on above: Performed By: #### B APPRENTICE PLUMBER, CMP #### [facility] [address] [address] [address] Manrfed Brooks Hemoglobin (Bld) [Mass/Vol] 13.8 g/dL Normal 12.0-16.0 [facility] Comment on above: Performed By: #### B APPRENTICE PLUMBER, CMP #### [facility] [address] [place] [address] Dr. Manfred Brooks IG # 0.01 10e3/ul Normal 0.00-0.03 [facility] Comment on above: Performed By: #### B APPRENTICE PLUMBER, CMP #### [facility] [address] [place] [address] Dr. Manfred Brooks IG % 0.2 % Normal 0.0-0.5 [facility] Comment on above: Performed By: #### B APPRENTICE PLUMBER, CMP #### [facility] [address] [place] [address] Dr. Manfred Brooks LYMPH # 2.1 103/ul Normal 1.2-3.8 [facility] Comment on above: Performed By: #### B APPRENTICE PLUMBER, CMP #### [facility] [address] [place] [address] Dr. Manfred Brooks Lymphocytes/100 WBC (Bld) 35.6 % Normal 20.5-60.0 [facility] Comment on above: Performed By: #### B APPRENTICE PLUMBER, CMP #### [facility] [address] [place] [address] Dr. Manfred Brooks MANUAL DIFF REQ NO Normal [facility] Comment on above: Performed By: #### B APPRENTICE PLUMBER, CMP #### [facility] [address] [place] [address] Dr. Manfred Brooks MCH (RBC) [Entitic mass] 29.1 pg Normal 26.7-34.0 [facility] Comment on above: Performed By: #### B APPRENTICE PLUMBER, CMP #### [facility] [address] [place] [address] Dr. Manfred Brooks MCHC (RBC) [Mass/Vol] 32.6 g/dL Normal 29.9-35.2 [facility] Comment on above: Performed By: #### B APPRENTICE PLUMBER, CMP #### [facility] [address] [address] [address] Manfred Brooks MCV (RBC) [Entitic vol] 89.2 fL Normal 81.0-99.0 [facility] Comment on above: Performed By: #### B APPRENTICE PLUMBER, CMP #### [facility] [address] [place] [address] Dr. Manfred Brooks MONO # 0.5 103/ul Normal 0.3-0.8 [facility] Comment on above: Performed By: #### B APPRENTICE PLUMBER, CMP #### [facility] [address] [place] [address] Dr. Manfred Brooks Monocytes/100 WBC (Bld) 9.0 % Normal 1.7-12.0 [facility] Comment on above: Performed By: #### B APPRENTICE PLUMBER, CMP #### [facility] [address] [place] [address] Dr. Manfred Brooks NEUT # 3.0 103/ul Normal 1.4-6.5 [facility] Comment on above: Performed By: #### B APPRENTICE PLUMBER, CMP #### [facility] [address] [place] [address] Dr. Manfred Brooks Neutrophils/100 WBC (Bld) 51.9 % Normal 43.0-75.0 [facility] Comment on above: Performed By: #### B APPRENTICE PLUMBER, CMP #### [facility] [address] [place] [address] Dr. Manfred Brooks Platelet mean volume (Bld) [Entitic vol] 10.1 fL Normal 9.5-13.5 [facility] Comment on above: Performed By: #### B APPRENTICE PLUMBER, CMP #### [facility] [address] [place] [address] Dr. Manfred Brooks PLT 290 103/ul Normal 150-450 [facility] Comment on above: Performed By: #### B APPRENTICE PLUMBER, CMP #### [facility] [address] [place] [address] Dr. Manfred Brooks RBC 4.74 106/ul Normal 4.20-5.40 [facility] Comment on above: Performed By: #### B APPRENTICE PLUMBER, CMP #### [facility] [address] [address] [address] Manfred Brooks WBC 5.8 103/ul Normal 4.0-11.0 [facility] Comment on above: Performed By: #### B APPRENTICE PLUMBER, CMP #### [facility] [address] [address] [address] Manfred Brooks Covid-19 PCR (CVDTB)on 12-11 SARS-CoV-2 (COVID-19) RNA DAMIR+probe Ql (Unsp spec) Not detected Normal NOT DETECTED [facility] Comment on above: Result Comment: When [...] for this test is supported by the [place] of Health and Human Service's declaration that [...] used). Performed By: #### C VDTB #### [facility] [address] [address] [address] Manfred Brooks ECHOCARDIO M/2D COMPLETEon 0 01-06-2023 ECHOCARDIO M/2D COMPLETE Patient: BETTY CAMARENA Exam Date: 01/06/2023 : 1940 Gender:F Ordering : DR CAM BATES . Admission #: [id number] Family : DR DENISA ALEJANDRE M.D. Order #: [id number] CLICK HERE TO VIEW EXAM ECHOCARDIOGRAM REPORT [...] Alejandre M.D. on 01/06/2023 at 17:34 Normal [facility] FREE T3on 01-06-2023 FREE T3 5.79 pg/mlL Critically high 2.18-3.98 [facility] Comment on above: Performed By: #### C VDTBH #### [facility] [address] [place] [address] Dr. Manfred Brooks LACTATE/LACTIC ACIDon 2022 Lactate [Moles/Vol] 1.6 mmol/L Normal 0.4-2.0 [facility] Comment on above: Performed By: #### B MANN HSTROPJim, CK #### [facility] [address] [place] [address] Dr. Manfred Brooks PROF 14(COMP METB)on 023 Albumin [Mass/Vol] 4.1 g/dL Normal 3.4-5.0 [facility] Comment on above: Performed By: #### ANU BENOITRO #### [facility] [address] [place] [address] Dr. Manfred Brooks Albumin/Globulin [Mass ratio] 1.2 {ratio} Normal [facility] Comment on above: Performed By: #### ANU BENOITRO #### [facility] [address] [place] [address] Dr. Manfred Brooks ALP [Catalytic activity/Vol] 74 U/L Normal 46-116 [facility] Comment on above: Performed By: #### MILTON BENOIT #### [facility] [address] [address] [address] Manfred Brooks ALT [Catalytic activity/Vol] 29 U/L Normal 14-59 [facility] Comment on above: Performed By: #### Nikolas HOGAN, UMICRO #### [facility] [address] [address] [address] Manfred Brooks Anion gap [Moles/Vol] 13.8 mmol/L Normal [facility] Comment on above: Performed By: #### E SAMIRA, UMICRO #### [facility] [address] [address] [address] Manfred Brooks AST [Catalytic activity/Vol] 19 U/L Normal 15-37 [facility] Comment on above: Performed By: #### Nikolas HOGAN, UMICRO #### [facility] [address] [place] [address] Dr. Manfred Brooks Bilirubin [Mass/Vol] 0.4 mg/dL Normal 0.2-1.0 [facility] Comment on above: Performed By: #### Nikolas HOGAN, UMICRO #### [facility] [address] [address] [address] Manfred Brooks Calcium [Mass/Vol] 9.6 mg/dL Normal 8.5-10.1 [facility] Comment on above: Performed By: #### Nikolas HOGAN, UMICRO #### [facility] [address] [address] [address] Manfred Brooks Chloride [Moles/Vol] 108 mmol/L Critically high 98-107 [facility] Comment on above: Performed By: #### Nikolas HOGAN, UMICRO #### [facility] [address] [address] [address] Manfred Brooks CO2 [Moles/Vol] 31.0 mmol/L Normal 21.0-32.0 [facility] Comment on above: Performed By: #### Nikolas HOGAN, UMICRO #### [facility] [address] [address] [address] Manfred Brooks Creatinine [Mass/Vol] 0.80 mg/dL Normal 0.55-1.02 [facility] Comment on above: Performed By: #### Nikolas HOGAN UMICRO #### [facility] [address] [place] [address] Dr. Manfred Brooks EGFR-AF SOUTH KOREAN >60 Normal >=60 [facility] Comment on above: Performed By: #### E SAMIRA UMICRO #### [facility] [address] [place] [address] Dr. Manfred Brooks EGFR-NON AF SOUTH KOREAN >60 Normal >=60 [facility] Comment on above: Performed By: #### E SAMIRA UMICRO #### [facility] [address] [place] [address] Dr. Manfred Brooks Globulin (S) [Mass/Vol] 3.3 g/dL Normal [facility] Comment on above: Performed By: #### Nikolas HOGAN UMICRO #### [facility] [address] [place] [address] Dr. Manfred Brooks Glucose [Mass/Vol] 132 mg/dL Critically high 74-106 [facility] Comment on above: Performed By: #### Nikolas HOGAN UMICRO #### [facility] [address] [place] [address] Dr. Manfred Brooks Potassium [Moles/Vol] 3.8 mmol/L Normal 3.5-5.1 [facility] Comment on above: Performed By: #### Nikolas HOGAN UMICRO #### [facility] [address] [place] [address] Dr. Manfred Brooks Protein [Mass/Vol] 7.4 g/dL Normal 6.4-8.2 [facility] Comment on above: Performed By: #### Nikolas HOGAN UMICRO #### [facility] [address] [place] [address] Dr. Manfred Brooks Sodium [Moles/Vol] 149 mmol/L Critically high 136-145 [facility] Comment on above: Performed By: #### Nikolas HOGAN UMICRO #### [facility] [address] [place] [address] Dr. Manfred Brooks Urea nitrogen [Mass/Vol] 20.0 mg/dL Critically high 7.0-18.0 [facility] Comment on above: Performed By: #### MILTON BENOIT #### [facility] [address] [place] [address] Dr. Manfred Brooks Urea nitrogen/Creatinine [Mass ratio] 25.0 mg/mg Normal [facility] Comment on above: Performed By: #### MILTON BENOIT #### [facility] [address] [place] [address] Dr. Manfred Brooks PROTIMEon 01-06-2023 INR Coag (PPP) [Relative time] 0.99 {INR} Normal [facility] Comment on above: Performed By: #### B JAMILAH DARNELL CK #### [facility] [address] [place] [address] Dr. Manfred Brooks INR GUIDELINES SEE BELOW Normal [facility] Comment on above: Result Comment: JUSTYN RED INR: 2.0 - 3.0 CONDITIONS NOT LISTED BELOW 2.5 - 3.5 FOR PROSTHETIC HEART VALVE REPLACEMENT 2.5 - 3.5 RECURRENT THROMBOSIS Performed By: #### B JAMILAH DARNELL CK #### [facility] [address] [place] [address] Dr. Manfred Brooks PT Coag (PPP) [Time] 10.5 s Normal 9.0-11.6 [facility] Comment on above: Performed By: #### B JAMILAH DARNELL CK #### [facility] [address] [place] [address] Dr. Manfred Brooks PTTon 01-06-2023 aPTT Coag (Bld) [Time] 28.9 s Normal 22.3-36.2 [facility] Comment on above: Performed By: #### B JAMILAH DARNELL CK #### [facility] [address] [place] [address] Dr. Manfred Brooks T4on 01-06-2023 T4 [Mass/Vol] 8.00 ug/dL Normal 4.80-13.90 [facility] Comment on above: Performed By: #### B APPRENTICE PLUMBER, CMP #### [facility] [address] [place], [place] [address] Dr. Manfred Brooks TROPONIN, HIGH SENSITIVITYon 01-06-2023 HSTROP 18.1 pg/mL Normal 4.0-51.3 [facility] Comment on above: Result Comment: CUT- OFF POINTS HAVE BEEN ESTABLISHED BASED ON THE FOURTH UNIVERSAL DEFINITIONS OF MYOCARDIAL INFARCTION. THE UPPER REFERENCE LIMIT (URL) OF TROPONIN, DEFINED THE 99TH PERCENTILE OF cTnI DISTRIBUTION IN A REFERENCE POPULATION, HAS BEEN CONFIRMED THE DECISION THRESHOLD FOR ID DIAGNOSIS. Performed By: #### E RUR, UMICRO #### [facility] [address] [address] [address] Manfred Brooks HSTROP 10.5 pg/mL Normal 4.0-51.3 [facility] Comment on above: Result Comment: CUT- OFF POINTS HAVE BEEN ESTABLISHED BASED ON THE FOURTH UNIVERSAL DEFINITIONS OF MYOCARDIAL INFARCTION. THE UPPER REFERENCE LIMIT (URL) OF TROPONIN, DEFINED THE 99TH PERCENTILE OF cTnI DISTRIBUTION IN A REFERENCE POPULATION, HAS BEEN CONFIRMED THE DECISION THRESHOLD FOR ID DIAGNOSIS. Performed By: #### E RUR, UMICRO #### [facility] [address] [address] [address] Manfred Brooks TSHon 01-06-2023 TSH 0.567 uIU/mL Normal 0.358-3.740 [facility] Comment on above: Performed By: #### C VDTB #### [facility] [address] [address] [address] Manfred Brooks XR CHEST 1 Von [...] JOHAN MCKEON Date: 2023-01-06 07:11 Normal [facility] PROF CHEM 8 (BAS METB)on Anion gap [Moles/Vol] 13.1 mmol/L Normal [facility] Comment on above: Performed By: #### E SAMIRA, UMICRO #### [facility] [address] [place] [address] Dr. Manfred Brooks Calcium [Mass/Vol] 9.3 mg/dL Normal 8.5-10.1 [facility] Comment on above: Performed By: #### E SAMIRA, UMICRO #### [facility] [address] [place] [address] Dr. Manfred Brooks Chloride [Moles/Vol] 104 mmol/L Normal 98-107 [facility] Comment on above: Performed By: #### Nikolas HOAGN, UMICRO #### [facility] [address] [place] [address] Dr. Manfred Brooks CO2 [Moles/Vol] 29.7 mmol/L Normal 21.0-32.0 [facility] Comment on above: Performed By: #### Nikolas HOGAN UMICRO #### [facility] [address] [place] [address] Dr. Manfred Brooks Creatinine [Mass/Vol] 0.72 mg/dL Normal 0.55-1.02 [facility] Comment on above: Performed By: #### Nikolas HOGAN UMICRO #### [facility] [address] [place] [address] Dr. Manfred Brooks EGFR-AF SOUTH KOREAN >60 Normal >=60 [facility] Comment on above: Performed By: #### Nikolas HOGAN UMICRO #### [facility] [address] [place] [address] Dr. Manfred Brooks EGFR-NON AF SOUTH [place]OREAN >60 Normal >=60 [facility] Comment on above: Performed By: #### E SAMIRA, UMICRO #### [facility] [address] [place] [address] Dr. Manfred Brooks Glucose [Mass/Vol] 129 mg/dL Critically high 74-106 [facility] Comment on above: Performed By: #### MILTON BENOIT #### [facility] [address] [address] [address] Manfred Brooks Potassium [Moles/Vol] 4.8 mmol/L Normal 3.5-5.1 [facility] Comment on above: Result Comment: spec imen slightly hemolysed. suggest repeat. Performed By: #### ANU BENOITRO #### [facility] [address] [place] [address] Dr. Manfred Brooks Sodium [Moles/Vol] 142 mmol/L Normal 136-145 [facility] Comment on above: Performed By: #### MILTON BENOIT #### [facility] [address] [place] [address] Dr. Manfred Brooks Urea nitrogen [Mass/Vol] 17.0 mg/dL Normal 7.0-18.0 [facility] Comment on above: Performed By: #### MILTON BENOIT #### [facility] [address] [place] [address] Dr. Manfred Brooks Urea nitrogen/Creatinine [Mass ratio] 23.6 mg/mg Normal [facility] Comment on above: Performed By: #### MILTON BENOIT #### [facility] [address] [place] [address] Dr. Manfred Brooks BNPon 05-16-2022 Natriuretic peptide B (Bld) [Mass/Vol] 322.0 pg/mL Normal <=1,800.0 [facility] Comment on above: Performed By: #### B MP, HSTROPN, CK #### [facility] [address] [place] [address] Dr. Manfred Brooks CARDIAC TELMA ADMITon 022 CK [Catalytic activity/Vol] 109 U/L Normal 26-192 [facility] Comment on above: Performed By: #### B MP, HSTROPN, CK #### [facility] [address] [place] [address] Dr. Manfred Brooks CK.MB [Mass/Vol] 1.43 ng/mL Normal <=3.60 [facility] Comment on above: Performed By: #### B MP, HSTROPN, CK #### [facility] [address] [address] [address] Manfred Brooks HSTROP 19.6 pg/mL Normal 4.0-51.3 [facility] Comment on above: Result Comment: CUT- OFF POINTS HAVE BEEN ESTABLISHED BASED ON THE FOURTH UNIVERSAL DEFINITIONS OF MYOCARDIAL INFARCTION. THE UPPER REFERENCE LIMIT (URL) OF TROPONIN, DEFINED THE 99TH PERCENTILE OF cTnI DISTRIBUTION IN A REFERENCE POPULATION, HAS BEEN CONFIRMED THE DECISION THRESHOLD FOR ID DIAGNOSIS. Performed By: #### B MP, HSTROPN, CK #### [facility] [address] [place] [address] Dr. Manfred Brooks MAHOGANY 71 ng/mL Normal 9-82 [facility] Comment on above: Performed By: #### B MP, HSTROPN, CK #### [facility] [address] [place] [address] Dr. Manfred Brooks CBC AUTO DIFFon 05-16-2022 BASO # 0.1 103/ul Normal 0.0-0.1 [facility] Comment on above: Performed By: #### B MP, HSTROPN, CK #### [facility] [address] [place] [address] Dr. Manfred Brooks Basophils/100 WBC (Bld) 1.4 % Normal 0.2-2.0 [facility] Comment on above: Performed By: #### B MP, HSTROPN, CK #### [facility] [address] [address] [address] Manfred Brooks EO # 0.1 103/ul Normal 0.0-0.7 [facility] Comment on above: Performed By: #### B MP, HSTROPN, CK #### [facility] [address] [place] [address] Dr. Manfred Brooks Eosinophils/100 WBC (Bld) 2.3 % Normal 0.9-7.0 [facility] Comment on above: Performed By: #### B MP, HSTROPN, CK #### [facility] [address] [place] [address] Dr. Manfred Brooks Erythrocyte distribution width (RBC) [Ratio] 14.4 % Normal 11.0-15.0 [facility] Comment on above: Performed By: #### B MP, HSTROPN, CK #### [facility] [address] [place] [address] Dr. Manfred Brooks Hematocrit (Bld) [Volume fraction] 38.1 % Normal 36.0-48.0 [facility] Comment on above: Performed By: #### B MP, HSTROPN, CK #### [facility] [address] [place] [address] Dr. Manfred Brooks Hemoglobin (Bld) [Mass/Vol] 12.1 g/dL Normal 12.0-16.0 [facility] Comment on above: Performed By: #### B MP, HSTROPN, CK #### [facility] [address] [place] [address] Dr. Manfred Brooks IG # 0.01 10e3/ul Normal 0.00-0.03 [facility] Comment on above: Performed By: #### B MP, HSTROPN, CK #### [facility] [address] [place] [address] Dr. Manfred Brooks IG % 0.2 % Normal 0.0-0.5 [facility] Comment on above: Performed By: #### B MP, HSTROPN, CK #### [facility] [address] [place] [address] Dr. Manfred Brooks LYMPH # 1.0 103/ul Critically low 1.2-3.8 [facility] Comment on above: Performed By: #### B MP, HSTROPN, CK #### [facility] [address] [place] [address] Dr. Manfred Brooks Lymphocytes/100 WBC (Bld) 22.4 % Normal 20.5-60.0 [facility] Comment on above: Performed By: #### B MP, HSTROPN, CK #### [facility] [address] [place] [address] Dr. Manfred Brooks MANUAL DIFF REQ NO Normal [facility] Comment on above: Performed By: #### B MP, HSTROPN, CK #### [facility] [address] [place] [address] Dr. Manfred Brooks MCH (RBC) [Entitic mass] 28.9 pg Normal 26.7-34.0 [facility] Comment on above: Performed By: #### B MP, HSTROPN, CK #### [facility] [address] [place] [address] Dr. Manfred Brooks MCHC (RBC) [Mass/Vol] 31.8 g/dL Normal 29.9-35.2 [facility] Comment on above: Performed By: #### B MP, HSTROPN, CK #### [facility] [address] [place] [address] Dr. Manfred Brooks MCV (RBC) [Entitic vol] 90.9 fL Normal 81.0-99.0 [facility] Comment on above: Performed By: #### B MP, HSTROPN, CK #### [facility] [address] [place] [address] Dr. Manfred Brooks MONO # 0.5 103/ul Normal 0.3-0.8 [facility] Comment on above: Performed By: #### B MP, HSTROPN, CK #### [facility] [address] [place] [address] Dr. Manfred Brooks Monocytes/100 WBC (Bld) 10.2 % Normal 1.7-12.0 [facility] Comment on above: Performed By: #### B MP, HSTROPN, CK #### [facility] [address] [place] [address] Dr. Manfred Brooks NEUT # 2.8 103/ul Normal 1.4-6.5 [facility] Comment on above: Performed By: #### B MP, HSTROPN, CK #### [facility] [address] [place] [address] Dr. Manfred Brooks Neutrophils/100 WBC (Bld) 63.5 % Normal 43.0-75.0 [facility] Comment on above: Performed By: #### B MP, HSTROPN, CK #### [facility] [address] [address] [address] Manfred Brooks Platelet mean volume (Bld) [Entitic vol] 10.1 fL Normal 9.5-13.5 [facility] Comment on above: Performed By: #### B MP, HSTROPN, CK #### [facility] [address] [place] [address] Dr. Manfred Brooks PLT 268 103/ul Normal 150-450 [facility] Comment on above: Performed By: #### B MP, HSTROPN, CK #### [facility] [address] [place] [address] Dr. Manfred Brooks RBC 4.19 106/ul Critically low 4.20-5.40 [facility] Comment on above: Performed By: #### B MANN HSTROPN, CK #### [facility] [address] [place] [address] Dr. Manfred Brooks WBC 4.4 103/ul Normal 4.0-11.0 [facility] Comment on above: Performed By: #### B MANN HSTROPN, CK #### [facility] [address] [place] [address] STROKE HEAD WOon [...] MCKINLEY TAYLOR Date: 2022-05-16 12:01 Normal [facility] CTA NECK WO W CONon 05-16-20 [...] JOHAN MCKEON Date: 2022-05-16 13:32 Normal [facility] CULTURE URINEon 05-16-2022 CULTURE URINE Culture Observations : LIGHT GROWTH OF MIXED GENITAL BETO. NO POTENTIAL PATHOGENS SEEN. Normal [facility] Comment on above: Performed By: #### B MP, HSTROPN, CK #### [facility] [address] [place] [address] Dr. Manfred Brooks [facility]on SARS-CoV-2 (COVID-19) RNA DAMIR+probe Ql (Unsp spec) Not detected Normal NOT DETECTED [facility] Comment on above: Result Comment: When [...] for this test is supported by the Pull [place] of Health and Human Service's declaration that [...] used). Performed By: #### C VDTBH #### [facility] [address] [place] [address] Dr. Manfred Brooks DIGOXINon 05-16-2022 DIG 2.3 ng/mL Critically high 0.9-2.0 [facility] Comment on above: Result Comment: repe ated Performed By: #### B MP, HSTROPN, CK #### [facility] [address] [place] [address] Dr. Manfred Brooks ER URINE PROFILEon 2 Bilirubin Ql (U) Negative Normal NEGATIVE [facility] Comment on above: Performed By: #### E SAMIRA UMICRO #### [facility] [address] [place] [address] Dr. Manfred Brooks Clarity (U) CLEAR Normal CLEAR [facility] Comment on above: Performed By: #### E SAMIRA, UMICRO #### [facility] [address] [place] [address] Dr. Manfred Brooks Color (U) LT. YELLOW Normal YELLOW [facility] Comment on above: Performed By: #### E SAMIRA, UMICRO #### [facility] [address] [place] [address] Dr. Manfred Brooks ERUAHD A micrscopic examination will be performed if indicated. Normal [facility] Comment on above: Performed By: #### ANU BENOITRO #### [facility] [address] [place] [address] Dr. Manfred Brooks Glucose Ql (U) Negative Normal NEGATIVE [facility] Comment on above: Performed By: #### Nikolas HOGAN UMICRO #### [facility] [address] [place] [address] Dr. Manfred Brooks Hemoglobin Ql (U) Negative Normal NEGATIVE [facility] Comment on above: Performed By: #### Nikolas HOGAN UMICRO #### [facility] [address] [place] [address] Dr. Manfred Brooks Ketones Ql (U) Negative Normal NEGATIVE [facility] Comment on above: Performed By: #### ANU BENOITRO #### [facility] [address] [place] [address] Dr. Manfred Brooks LEUKOCYTES MODERATE Abnormal NEGATIVE [facility] Comment on above: Performed By: #### ANU BENOITRO #### [facility] [address] [place] [address] Dr. Manfred Brooks Nitrite Ql (U) Negative Normal NEGATIVE [facility] Comment on above: Performed By: #### ANU BENOITRO #### [facility] [address] [place] [address] Dr. Manfred Brooks pH (U) 6.5 [pH] Normal 5-9 [facility] Comment on above: Performed By: #### ANU BENOITRO #### [facility] [address] [place] [address] Dr. Manfred Brooks SPEC GRAVITY <=1.005 Abnormal 1.005-<=1.025 [facility] Comment on above: Performed By: #### ANU BENOITRO #### [facility] [address] [place] [address] Dr. Manfred Brooks UA PROTEIN Negative Normal NEGATIVE/ TRACE [facility] Comment on above: Performed By: #### ANU BENOITRO #### [facility] [address] [place] [address] Dr. Manfred Brooks UR MICRO IND INDICATED Normal [facility] Comment on above: Performed By: #### E RUR UMICRO #### [facility] [address] [place] [address] Dr. Manfred Brooks Urobilinogen Qn (U) 0.2 {Antionette'U}/dL Normal 0.2 - 1. 0 [facility] Comment on above: Performed By: #### E SUBHASH HOGANICRO #### [facility] [address] [address] [address] Manfred Brooks POINT OF CARE GLUCOSEon 08 Glucose [Mass/Vol] 109 mg/dL Critically high 74-106 T [facility] Comment on above: Performed By: #### P OCGLUC #### [facility] [address] [place] [address] Dr. Manfred Brooks PROF 14(COMP METB)on 022 Albumin [Mass/Vol] 3.9 g/dL Normal 3.4-5.0 [facility] Comment on above: Performed By: #### B MP, HSTROPN, CK #### [facility] [address] [place] [address] Dr. Manfred Brooks Albumin/Globulin [Mass ratio] 1.3 {ratio} Normal [facility] Comment on above: Performed By: #### B MP, HSTROPN, CK #### [facility] [address] [place] [address] Dr. Manfred Brooks ALP [Catalytic activity/Vol] 58 U/L Normal 46-116 [facility] Comment on above: Performed By: #### B MP, HSTROPN, CK #### [facility] [address] [address] [address] Manfred Brooks ALT [Catalytic activity/Vol] 28 U/L Normal 14-59 [facility] Comment on above: Performed By: #### B MP, HSTROPN, CK #### [facility] [address] [address] [address] Manfred Brooks Anion gap [Moles/Vol] 11.4 mmol/L Normal [facility] Comment on above: Performed By: #### B MP, HSTROPN, CK #### [facility] [address] [address] [address] Manfred Brooks AST [Catalytic activity/Vol] 18 U/L Normal 15-37 [facility] Comment on above: Performed By: #### B MP, HSTROPN, CK #### [facility] [address] [address] [address] Manfred Brooks Bilirubin [Mass/Vol] 0.6 mg/dL Normal 0.2-1.0 [facility] Comment on above: Performed By: #### B MP, HSTROPN, CK #### [facility] [address] [place] [address] Dr. Manfred Brooks Calcium [Mass/Vol] 8.8 mg/dL Normal 8.5-10.1 [facility] Comment on above: Performed By: #### B MP, HSTROPN, CK #### [facility] [address] [address] [address] Manfred Brooks Chloride [Moles/Vol] 106 mmol/L Normal 98-107 [facility] Comment on above: Performed By: #### B MP, HSTROPN, CK #### [facility] [address] [place] [address] Dr. Manfred Brooks CO2 [Moles/Vol] 31.3 mmol/L Normal 21.0-32.0 [facility] Comment on above: Performed By: #### B MP, HSTROPN, CK #### [facility] [address] [place] [address] Dr. Manfred Brooks Creatinine [Mass/Vol] 0.76 mg/dL Normal 0.55-1.02 [facility] Comment on above: Performed By: #### B MP, HSTROPN, CK #### [facility] [address] [place] [address] Dr. Manfred Brooks EGFR-AF SOUTH KOREAN >60 Normal >=60 [facility] Comment on above: Performed By: #### B MP, HSTROPN, CK #### [facility] [address] [address] [address] Manfred Brooks EGFR-NON AF SOUTH [place]OREAN >60 Normal >=60 [facility] Comment on above: Performed By: #### B MP, HSTROPN, CK #### [facility] [address] [address] [address] Manfred Brooks Globulin (S) [Mass/Vol] 2.9 g/dL Normal [facility] Comment on above: Performed By: #### B MP, HSTROPN, CK #### [facility] [address] [address] [address] Manfred Brooks Glucose [Mass/Vol] 122 mg/dL Critically high 74-106 T [facility] Comment on above: Performed By: #### B MP, HSTROPN, CK #### [facility] [address] [address] [address] Manfred Brooks Potassium [Moles/Vol] 3.7 mmol/L Normal 3.5-5.1 [facility] Comment on above: Performed By: #### B MP, HSTROPN, CK #### [facility] [address] [address] [address] Manfred Brooks Protein [Mass/Vol] 6.8 g/dL Normal 6.4-8.2 [facility] Comment on above: Performed By: #### B MP, HSTROPN, CK #### [facility] [address] [address] [address] Manfred Brooks Sodium [Moles/Vol] 145 mmol/L Normal 136-145 [facility] Comment on above: Performed By: #### B MP, HSTROPN, CK #### [facility] [address] [address] [address] Manfred Brooks Urea nitrogen [Mass/Vol] 18.0 mg/dL Normal 7.0-18.0 [facility] Comment on above: Performed By: #### B MP, HSTROPN, CK #### [facility] [address] [address] [address] Manfred Brooks Urea nitrogen/Creatinine [Mass ratio] 23.7 mg/mg Normal [facility] Comment on above: Performed By: #### B VENESSA DARNELLTRDANNIELLE CK #### [facility] [address] [place] [address] Dr. Manfred Brooks PROTIMEon 05-16-2022 INR Coag (PPP) [Relative time] 1.08 {INR} Normal [facility] Comment on above: Performed By: #### ANU BENOITRO #### [facility] [address] [place] [address] Dr. Manfred Brooks INR GUIDELINES SEE BELOW Normal [facility] Comment on above: Result Comment: JUSTYN RED INR: 2.0 - 3.0 CONDITIONS NOT LISTED BELOW 2.5 - 3.5 FOR PROSTHETIC HEART VALVE REPLACEMENT 2.5 - 3.5 RECURRENT THROMBOSIS Performed By: #### MILTON BENOIT #### [facility] [address] [place] [address] Dr. Manfred Brooks PT Coag (PPP) [Time] 11.6 s Normal 9.0-11.6 [facility] Comment on above: Performed By: #### MILTON BENOIT #### [facility] [address] [place] [address] Dr. Manfred Brooks PTTon 05-16-2022 aPTT Coag (Bld) [Time] 28.1 s Normal 22.3-36.2 [facility] Comment on above: Performed By: #### MILTON BENOIT #### [facility] [address] [place] [address] Dr. Manfred Brooks TSHon 05-16-2022 TSH 0.320 uIU/mL Critically low 0.358-3.740 [facility] Comment on above: Performed By: #### B JAMILAH DARNELL CK #### [facility] [address] [place] [address] Dr. Manfred Brooks URINE MICROSCOPIC ONLYon BACTERIA TRACE Abnormal NONE SEEN [facility] Comment on above: Performed By: #### ANU BENOITRO #### [facility] [address] [place] [address] Dr. Manfred Brooks Bacteria identified Cx Nom (U) INDICATED Normal [facility] Comment on above: Performed By: #### E RUR, UMICRO #### [facility] [address] [place] [address] Dr. Manfred Brooks CAST NONE SEEN Normal NONE SEEN [facility] Comment on above: Performed By: #### E RUR, UMICRO #### [facility] [address] [place] [address] Dr. Manfred Brooks Crystals LM Nom (Urine sed) NONE SEEN Normal NONE SEEN [facility] Comment on above: Performed By: #### E RUR, UMICRO #### [facility] [address] [place] [address] Dr. Manfred Brooks Epithelial cells LM Ql (Urine sed) MODERATE Abnormal NONE SEEN /RARE [facility] Comment on above: Performed By: #### E RUR, UMICRO #### [facility] [address] [place] [address] Dr. Manfred Brooks MUCOUS NONE SEEN Normal NONE SEEN [facility] Comment on above: Performed By: #### E JAMILAR, UMICRO #### [facility] [address] [place] [address] Dr. Manfred Brooks RBC NONE SEEN Abnormal 0-2 [facility] Comment on above: Performed By: #### E RUR, UMICRO #### [facility] [address] [place] [address] Dr. Manfred Brooks WBC 10-20 Abnormal NONE SEEN [facility] Comment on above: Performed By: #### E JAMILAR, UMICRO #### [facility] [address] [place] [address] Dr. Manfred Brooks XR CHEST 1 Von [...] ALEJANDRO BLACKMAN Date: 2022-05-16 12:58 Normal [facility] T3, TOTAL (TRIIODOTHYRONINE) on 04-22-2022 T3, TOTAL 85 ng/dL Normal 71-180 [facility] Comment on above: Performed By: #### C VDTBH #### [facility] [address] [place] [address] Dr. Manfred Brooks BNPon 04-21-2022 Natriuretic peptide B (Bld) [Mass/Vol] 486.0 pg/mL Normal <=1,800.0 [facility] Comment on above: Performed By: #### B APPRENTICE PLUMBER, CMP #### [facility] [address] [place] [address] Dr. Manfred Brooks CBC AUTO DIFFon 04-21-2022 BASO # 0.1 103/ul Normal 0.0-0.1 [facility] Comment on above: Performed By: #### Nikolas HOGAN UMICRO #### [facility] [address] [place] [address] Dr. Manfred Brooks Basophils/100 WBC (Bld) 1.0 % Normal 0.2-2.0 [facility] Comment on above: Performed By: #### Nikolas RUAlin, UMICRO #### [facility] [address] [place] [address] Dr. Manfred Brooks EO # 0.2 103/ul Normal 0.0-0.7 [facility] Comment on above: Performed By: #### Nikolas RUAlin, UMICRO #### [facility] [address] [place] [address] Dr. Manfred Brooks Eosinophils/100 WBC (Bld) 2.7 % Normal 0.9-7.0 [facility] Comment on above: Performed By: #### Nikolas HOGAN UMICRO #### [facility] [address] [place] [address] Dr. Manfred Brooks Erythrocyte distribution width (RBC) [Ratio] 14.2 % Normal 11.0-15.0 [facility] Comment on above: Performed By: #### MILTON BENOIT #### [facility] [address] [place] [address] Dr. Manfred Brooks Hematocrit (Bld) [Volume fraction] 38.7 % Normal 36.0-48.0 [facility] Comment on above: Performed By: #### MILTON BENOIT #### [facility] [address] [place] [address] Dr. Manfred Brooks Hemoglobin (Bld) [Mass/Vol] 12.1 g/dL Normal 12.0-16.0 [facility] Comment on above: Performed By: #### MILTON BENOIT #### [facility] [address] [place] [address] Dr. Manfred Brooks IG # 0.02 10e3/ul Normal 0.00-0.03 [facility] Comment on above: Performed By: #### MILTON BENOIT #### [facility] [address] [place] [address] Dr. Manfred Brooks IG % 0.3 % Normal 0.0-0.5 [facility] Comment on above: Performed By: #### MILTON BENOIT #### [facility] [address] [place] [address] Dr. Manfred Brooks LYMPH # 2.6 103/ul Normal 1.2-3.8 [facility] Comment on above: Performed By: #### MILTON BENOIT #### [facility] [address] [place] [address] Dr. Manfred Brooks Lymphocytes/100 WBC (Bld) 36.7 % Normal 20.5-60.0 [facility] Comment on above: Performed By: #### MILTON BENOIT #### [facility] [address] [place] [address] Dr. Manfred Brooks MANUAL DIFF REQ NO Normal [facility] Comment on above: Performed By: #### MILTON BENOIT #### [facility] [address] [place] [address] Dr. Manfred Brooks MCH (RBC) [Entitic mass] 29.2 pg Normal 26.7-34.0 [facility] Comment on above: Performed By: #### Nikolas HOGAN, UMICRO #### [facility] [address] [place] [address] Dr. Manfred Brooks MCHC (RBC) [Mass/Vol] 31.3 g/dL Normal 29.9-35.2 [facility] Comment on above: Performed By: #### E JAMILAR, UMICRO #### [facility] [address] [place] [address] Dr. Manfred Brooks MCV (RBC) [Entitic vol] 93.5 fL Normal 81.0-99.0 [facility] Comment on above: Performed By: #### Nikolas HOGAN, UMICRO #### [facility] [address] [place] [address] Dr. Manfred Brooks MONO # 0.7 103/ul Normal 0.3-0.8 [facility] Comment on above: Performed By: #### Nikolas HOGAN, UMICRO #### [facility] [address] [place] [address] Dr. Manfred Brooks Monocytes/100 WBC (Bld) 9.5 % Normal 1.7-12.0 [facility] Comment on above: Performed By: #### Nikolas HOGAN, UMICRO #### [facility] [address] [place] [address] Dr. Manfred Brooks NEUT # 3.5 103/ul Normal 1.4-6.5 [facility] Comment on above: Performed By: #### E SAMIRA, UMICRO #### [facility] [address] [place] [address] Dr. Manfred Brooks Neutrophils/100 WBC (Bld) 49.8 % Normal 43.0-75.0 [facility] Comment on above: Performed By: #### E JAMILAR, UMICRO #### [facility] [address] [place] [address] Dr. Manfred Brooks Platelet mean volume (Bld) [Entitic vol] 10.5 fL Normal 9.5-13.5 [facility] Comment on above: Performed By: #### E RUR UMICRO #### [facility] [address] [place] [address] Dr. Manfred Brooks PLT 286 103/ul Normal 150-450 [facility] Comment on above: Performed By: #### E RUR, UMICRO #### [facility] [address] [address] [address] Manfred Brooks RBC 4.14 106/ul Critically low 4.20-5.40 [facility] Comment on above: Performed By: #### E RUR, UMICRO #### [facility] [address] [place] [address] Dr. Manfred Brooks WBC 7.0 103/ul Normal 4.0-11.0 [facility] Comment on above: Performed By: #### Nikolas HOGAN UMICRO #### [facility] [address] [place] [address] Dr. Manfred Brooks DIGOXINon 04-21-2022 DIG <0.2 Critically low 0.9-2.0 [facility] Comment on above: Performed By: #### B MP, HSTROPN, CK #### [facility] [address] [place] [address] Dr. Manfred Brooks ECHOCARDIO M/2D COMPLETEon 0 04-21-2022 ECHOCARDIO M/2D COMPLETE Patient: BETTY CAMARENA Exam Date: 04/21/2022 : 1940 Gender:F Ordering : DR CAM BATES . Admission #: [id number] Family : DR GLORIA SALCEDO . Order #: [id number] CLICK HERE TO VIEW EXAM ECHOCARDIOGRAM REPORT [...] Alejandre M.D. on 04/21/2022 at 19:20 Normal [facility] PROF 14(COMP METB)on 022 Albumin [Mass/Vol] 3.4 g/dL Normal 3.4-5.0 [facility] Comment on above: Performed By: #### B APPRENTICE PLUMBER, CMP #### [facility] [address] [address] [address] Manfred Brooks Albumin/Globulin [Mass ratio] 1.2 {ratio} Normal [facility] Comment on above: Performed By: #### B APPRENTICE PLUMBER, CMP #### [facility] [address] [address] [address] Manfred Brooks ALP [Catalytic activity/Vol] 62 U/L Normal 46-116 [facility] Comment on above: Performed By: #### B APPRENTICE PLUMBER, CMP #### [facility] [address] [place], [place] [address] Dr. Manfred Brooks ALT [Catalytic activity/Vol] 24 U/L Normal 14-59 [facility] Comment on above: Performed By: #### B APPRENTICE PLUMBER, CMP #### [facility] [address] [address] [address] Manfred Brooks Anion gap [Moles/Vol] 10.4 mmol/L Normal [facility] Comment on above: Performed By: #### B APPRENTICE PLUMBER, CMP #### [facility] [address] [address] [address] Manfred Brooks AST [Catalytic activity/Vol] 9 U/L Critically low 15-37 [facility] Comment on above: Performed By: #### B APPRENTICE PLUMBER, CMP #### [facility] [address] [place] [address] Dr. Manfred Brooks Bilirubin [Mass/Vol] 0.3 mg/dL Normal 0.2-1.0 [facility] Comment on above: Performed By: #### B APPRENTICE PLUMBER, CMP #### [facility] [address] [place] [address] Dr. Manfred Brooks Calcium [Mass/Vol] 8.5 mg/dL Normal 8.5-10.1 [facility] Comment on above: Performed By: #### B APPRENTICE PLUMBER, CMP #### [facility] [address] [place] [address] Dr. Manfred Brooks Chloride [Moles/Vol] 109 mmol/L Critically high 98-107 [facility] Comment on above: Performed By: #### B APPRENTICE PLUMBER, CMP #### [facility] [address] [place] [address] Dr. Manfred Brooks CO2 [Moles/Vol] 28.5 mmol/L Normal 21.0-32.0 [facility] Comment on above: Performed By: #### B APPRENTICE PLUMBER, CMP #### [facility] [address] [place] [address] Dr. Manfred Brooks Creatinine [Mass/Vol] 0.83 mg/dL Normal 0.55-1.02 [facility] Comment on above: Performed By: #### B APPRENTICE PLUMBER, CMP #### [facility] [address] [place] [address] Dr. Manfred Brooks EGFR-AF SOU[place]OREAN >60 Normal >=60 [facility] Comment on above: Performed By: #### B APPRENTICE PLUMBER, CMP #### [facility] [address] [address] [address] Manfred Brooks EGFR-NON AF [place]OREAN >60 Normal >=60 [facility] Comment on above: Performed By: #### B APPRENTICE PLUMBER, CMP #### [facility] [address] [address] [address] Manfred Brooks Globulin (S) [Mass/Vol] 2.8 g/dL Normal [facility] Comment on above: Performed By: #### B APPRENTICE PLUMBER, CMP #### [facility] [address] [address] [address] Manfred Brooks Glucose [Mass/Vol] 107 mg/dL Critically high 74-106 [facility] Comment on above: Performed By: #### B APPRENTICE PLUMBER, CMP #### [facility] [address] [place] [address] Dr. Manfred Brooks Potassium [Moles/Vol] 3.9 mmol/L Normal 3.5-5.1 [facility] Comment on above: Performed By: #### B APPRENTICE PLUMBER, CMP #### [facility] [address] [place] [address] Dr. Manfred Brooks Protein [Mass/Vol] 6.2 g/dL Critically low 6.4-8.2 [facility] Comment on above: Performed By: #### B APPRENTICE PLUMBER, CMP #### [facility] [address] [place] [address] Dr. Manfred Brooks Sodium [Moles/Vol] 144 mmol/L Normal 136-145 [facility] Comment on above: Performed By: #### B APPRENTICE PLUMBER, CMP #### [facility] [address] [place] [address] Dr. Manfred Brooks Urea nitrogen [Mass/Vol] 23.0 mg/dL Critically high 7.0-18.0 [facility] Comment on above: Performed By: #### B APPRENTICE PLUMBER, CMP #### [facility] [address] [place] [address] Dr. Manfred Brooks Urea nitrogen/Creatinine [Mass ratio] 27.7 mg/mg Normal [facility] Comment on above: Performed By: #### B APPRENTICE PLUMBER, CMP #### [facility] [address] [place] [address] Dr. Manfred Brooks BNPon 04-20-2022 Natriuretic peptide B (Bld) [Mass/Vol] 199.0 pg/mL Normal <=1,800.0 [facility] Comment on above: Performed By: #### AUN BENOITRO #### [facility] [address] [place] [address] Dr. Manfred Brooks CARDIAC TELMA 3-6on 2 CK [Catalytic activity/Vol] 55 U/L Normal 26-192 [facility] Comment on above: Performed By: #### SUBHASH BENOITICRO #### [facility] [address] [place] [address] Dr. Manfred Brooks CK.MB [Mass/Vol] 1.69 ng/mL Normal <=3.60 [facility] Comment on above: Performed By: #### ANU BENOITRO #### [facility] [address] [place] [address] Dr. Manfred Brooks HSTROP 37.5 pg/mL Normal 4.0-51.3 [facility] Comment on above: Result Comment: CUT- OFF POINTS HAVE BEEN ESTABLISHED BASED ON THE FOURTH UNIVERSAL DEFINITIONS OF MYOCARDIAL INFARCTION. THE UPPER REFERENCE LIMIT (URL) OF TROPONIN, DEFINED THE 99TH PERCENTILE OF cTnI DISTRIBUTION IN A REFERENCE POPULATION, HAS BEEN CONFIRMED THE DECISION THRESHOLD FOR ID DIAGNOSIS. Performed By: #### ANU BENOITRO #### [facility] [address] [place] [address] Dr. Manfred Brooks CK [Catalytic activity/Vol] 54 U/L Normal 26-192 [facility] Comment on above: Performed By: #### Nikolas HOGAN UMICRO #### [facility] [address] [place] [address] Dr. Manfred Brooks CK.MB [Mass/Vol] 1.12 ng/mL Normal <=3.60 [facility] Comment on above: Performed By: #### Nikolas HOGAN UMICRO #### [facility] [address] [place] [address] Dr. Manfred Brooks HSTROP 27.5 pg/mL Normal 4.0-51.3 [facility] Comment on above: Result Comment: CUT- OFF POINTS HAVE BEEN ESTABLISHED BASED ON THE FOURTH UNIVERSAL DEFINITIONS OF MYOCARDIAL INFARCTION. THE UPPER REFERENCE LIMIT (URL) OF TROPONIN, DEFINED THE 99TH PERCENTILE OF cTnI DISTRIBUTION IN A REFERENCE POPULATION, HAS BEEN CONFIRMED THE DECISION THRESHOLD FOR ID DIAGNOSIS. Performed By: #### MILTON BENOIT #### [facility] [address] [place] [address] Dr. Manfred Brooks CARDIAC TELMA ADMITon 022 CK [Catalytic activity/Vol] 64 U/L Normal 26-192 [facility] Comment on above: Performed By: #### MILTON BENOIT #### [facility] [address] [place] [address] Dr. Manfred Brooks CK.MB [Mass/Vol] 1.12 ng/mL Normal <=3.60 [facility] Comment on above: Performed By: #### MILTON BENOIT #### [facility] [address] [place] [address] Dr. Manfred Brooks HSTROP 13.4 pg/mL Normal 4.0-51.3 [facility] Comment on above: Result Comment: CUT- OFF POINTS HAVE BEEN ESTABLISHED BASED ON THE FOURTH UNIVERSAL DEFINITIONS OF MYOCARDIAL INFARCTION. THE UPPER REFERENCE LIMIT (URL) OF TROPONIN, DEFINED THE 99TH PERCENTILE OF cTnI DISTRIBUTION IN A REFERENCE POPULATION, HAS BEEN CONFIRMED THE DECISION THRESHOLD FOR ID DIAGNOSIS. Performed By: #### MILTON BENOIT #### [facility] [address] [place] [address] Dr. Manfred Brooks MAHOGANY 38 ng/mL Normal 9-82 [facility] Comment on above: Performed By: #### MILTON BENOIT #### [facility] [address] [place] [address] Dr. Manfred Brooks CBC AUTO DIFFon 04-20-2022 BASO # 0.1 103/ul Normal 0.0-0.1 [facility] Comment on above: Performed By: #### MILTON BENOIT #### [facility] [address] [place] [address] Dr. Manfred Brooks Basophils/100 WBC (Bld) 1.0 % Normal 0.2-2.0 [facility] Comment on above: Performed By: #### ANU BENOITRO #### [facility] [address] [place] [address] Dr. Manfred Brooks EO # 0.2 103/ul Normal 0.0-0.7 [facility] Comment on above: Performed By: #### ANU BENOITRO #### [facility] [address] [place] [address] Dr. Manfred Brooks Eosinophils/100 WBC (Bld) 1.8 % Normal 0.9-7.0 [facility] Comment on above: Performed By: #### ANU BENOITRO #### [facility] [address] [place] [address] Dr. Manfred Brooks Erythrocyte distribution width (RBC) [Ratio] 14.2 % Normal 11.0-15.0 [facility] Comment on above: Performed By: #### ANU BENOITRO #### [facility] [address] [place] [address] Dr. Manfred Brooks Hematocrit (Bld) [Volume fraction] 43.5 % Normal 36.0-48.0 [facility] Comment on above: Performed By: #### ANU BENOITRO #### [facility] [address] [place] [address] Dr. Manfred Brooks Hemoglobin (Bld) [Mass/Vol] 13.9 g/dL Normal 12.0-16.0 [facility] Comment on above: Performed By: #### ANU BENOITRO #### [facility] [address] [place] [address] Dr. Manfred Brooks IG # 0.03 10e3/ul Normal 0.00-0.03 [facility] Comment on above: Performed By: #### ANU BENOITRO #### [facility] [address] [place] [address] Dr. Manfred Brooks IG % 0.3 % Normal 0.0-0.5 [facility] Comment on above: Performed By: #### Nikolas HOGAN UMICRO #### [facility] [address] [place] [address] Dr. Manfred Brooks LYMPH # 2.6 103/ul Normal 1.2-3.8 [facility] Comment on above: Performed By: #### Nikolas HOGAN UMICRO #### [facility] [address] [place] [address] Dr. Manfred Brooks Lymphocytes/100 WBC (Bld) 29.8 % Normal 20.5-60.0 [facility] Comment on above: Performed By: #### Nikolas HOGAN UMICRO #### [facility] [address] [place] [address] Dr. Manfred Brooks MANUAL DIFF REQ NO Normal [facility] Comment on above: Performed By: #### Nikolas HOGAN UMICRO #### [facility] [address] [place] [address] Dr. Manfred Brooks MCH (RBC) [Entitic mass] 29.7 pg Normal 26.7-34.0 [facility] Comment on above: Performed By: #### Nikolas HOGAN UMICRO #### [facility] [address] [place] [address] Dr. Manfred Brooks MCHC (RBC) [Mass/Vol] 32.0 g/dL Normal 29.9-35.2 [facility] Comment on above: Performed By: #### Nikolas HOGAN UMICRO #### [facility] [address] [place] [address] Dr. Manfred Brooks MCV (RBC) [Entitic vol] 92.9 fL Normal 81.0-99.0 [facility] Comment on above: Performed By: #### Nikolas HOGAN UMICRO #### [facility] [address] [place] [address] Dr. Manfred Brooks MONO # 0.8 103/ul Normal 0.3-0.8 [facility] Comment on above: Performed By: #### Nikolas HOGAN UMICRO #### [facility] [address] [place] [address] Dr. Manfred Brooks Monocytes/100 WBC (Bld) 9.6 % Normal 1.7-12.0 [facility] Comment on above: Performed By: #### ANU BENOITRO #### [facility] [address] [place] [address] Dr. Manfred Brooks NEUT # 5.0 103/ul Normal 1.4-6.5 [facility] Comment on above: Performed By: #### ANU BENOITRO #### [facility] [address] [place] [address] Dr. Manfred Brooks Neutrophils/100 WBC (Bld) 57.5 % Normal 43.0-75.0 [facility] Comment on above: Performed By: #### ANU BENOITRO #### [facility] [address] [place] [address] Dr. Manfred Brooks Platelet mean volume (Bld) [Entitic vol] 10.1 fL Normal 9.5-13.5 [facility] Comment on above: Performed By: #### ANU BENOITRO #### [facility] [address] [place] [address] Dr. Manfred Brooks PLT 354 103/ul Normal 150-450 [facility] Comment on above: Performed By: #### ANU BENOITRO #### [facility] [address] [place] [address] Dr. Manfred Brooks RBC 4.68 106/ul Normal 4.20-5.40 [facility] Comment on above: Performed By: #### ANU BENOITRO #### [facility] [address] [place] [address] Dr. Manfred Brooks WBC 8.8 103/ul Normal 4.0-11.0 [facility] Comment on above: Performed By: #### ANU BENOITRO #### [facility] [address] [place] [address] Dr. Manfred Brooks CULTURE URINEon 04-20-2022 CULTURE URINE Culture Observations : LIGHT GROWTH OF MIXED GENITAL BETO. NO POTENTIAL PATHOGENS SEEN. Normal [facility] Comment on above: Performed By: #### B JAMILAH DARNELL, CK #### [facility] [address] [address] [address] Manfred Brooks Covid-19 PCR ([facility])on 04-11 SARS-CoV-2 (COVID-19) RNA DAMIR+probe Ql (Unsp spec) Not detected Normal NOT DETECTED [facility] Comment on above: Result Comment: When [...] for this test is supported by the [employer] of [employer] and Human Service's declaration that [...] By: #### B JAMILAH DARNELL, CK #### [facility] [address] [address] [address] Manfred Brooks D-DIMERon 04-20-2022 D-DIMER 0.35 mg/L FEU Normal <=0.59 [facility] Comment on above: Performed By: #### E MILTON HOGAN #### [facility] [address] [address] [address] Manfred Brooks D-DIMER COMMENTS SEE BELOW Normal [facility] Comment on above: Result Comment: Incr eases [...] hospitalization. Performed By: #### ANU BENOITRO #### [facility] [address] [place] [address] Dr. Manfred Brooks PROF CHEM 8 (BAS METB)on Anion gap [Moles/Vol] 14.1 mmol/L Normal [facility] Comment on above: Performed By: #### ANU BENOITRO #### [facility] [address] [place] [address] Dr. Manfred Brooks Calcium [Mass/Vol] 9.3 mg/dL Normal 8.5-10.1 [facility] Comment on above: Performed By: #### ANU BENOITRO #### [facility] [address] [place] [address] Dr. Manfred Brooks Chloride [Moles/Vol] 107 mmol/L Normal 98-107 [facility] Comment on above: Performed By: #### ANU BENOITRO #### [facility] [address] [place] [address] Dr. Manfred Brooks CO2 [Moles/Vol] 27.8 mmol/L Normal 21.0-32.0 [facility] Comment on above: Performed By: #### ANU BENOITRO #### [facility] [address] [place] [address] Dr. Manfred Brooks Creatinine [Mass/Vol] 0.89 mg/dL Normal 0.55-1.02 [facility] Comment on above: Performed By: #### ANU BENOITRO #### [facility] [address] [place] [address] Dr. Manfred Brooks EGFR-AF SOU[place]OREAN >60 Normal >=60 [facility] Comment on above: Performed By: #### ANU BENOITRO #### [facility] [address] [place] [address] Dr. Manfred Brooks EGFR-NON AF [place]OREAN >60 Normal >=60 [facility] Comment on above: Performed By: #### E RUR, UMICRO #### [facility] [address] [place] [address] Dr. Manfred Brooks Glucose [Mass/Vol] 129 mg/dL Critically high 74-106 [facility] Comment on above: Performed By: #### E SAMIRA, UMICRO #### [facility] [address] [place] [address] Dr. Manfred Brooks Potassium [Moles/Vol] 3.9 mmol/L Normal 3.5-5.1 [facility] Comment on above: Performed By: #### E SAMIRA, UMICRO #### [facility] [address] [place] [address] Dr. Manfred Brooks Sodium [Moles/Vol] 145 mmol/L Normal 136-145 [facility] Comment on above: Performed By: #### E SAMIRA, UMICRO #### [facility] [address] [place] [address] Dr. Manfred Brooks Urea nitrogen [Mass/Vol] 28.0 mg/dL Critically high 7.0-18.0 [facility] Comment on above: Performed By: #### Nikolas HOGAN, UMICRO #### [facility] [address] [place] [address] Dr. Manfred Brooks Urea nitrogen/Creatinine [Mass ratio] 31.5 mg/mg Normal [facility] Comment on above: Performed By: #### Nikolas HOGAN, UMICRO #### [facility] [address] [place] [address] Dr. Manfred Brooks T4on 04-20-2022 T4 [Mass/Vol] 8.10 ug/dL Normal 4.80-13.90 [facility] Comment on above: Performed By: #### B APPRENTICE PLUMBER, CMP #### [facility] [address] [place] [address] Dr. Manfred Brooks TSHon 04-20-2022 TSH 0.918 uIU/mL Normal 0.358-3.740 [facility] Comment on above: Performed By: #### B APPRENTICE PLUMBER, CMP #### [facility] [address] [place] [address] Dr. Manfred Brooks UA RANDOM W/MICROSCOPICon BACTERIA TRACE Abnormal NONE SEEN [facility] Comment on above: Performed By: #### C VDTBH #### [facility] [address] [place] [address] Dr. Manfred Brooks Bilirubin Ql (U) Negative Normal NEGATIVE [facility] Comment on above: Performed By: #### C VDTBH #### [facility] [address] [place] [address] Dr. Manfred Brooks CAST SEEN Abnormal NONE SEEN [facility] Comment on above: Performed By: #### C VDTBH #### [facility] [address] [place] [address] Dr. Manfred Brooks Clarity (U) CLEAR Normal CLEAR [facility] Comment on above: Performed By: #### C VDTBH #### [facility] [address] [place] [address] Dr. Manfred Brooks Color (U) LT. YELLOW Normal YELLOW [facility] Comment on above: Performed By: #### C VDTBH #### [facility] [address] [place] [address] Dr. Manfred Brooks Crystals LM Nom (Urine sed) NONE SEEN Normal NONE SEEN [facility] Comment on above: Performed By: #### C VDTBH #### [facility] [address] [place] [address] Dr. Manfred Brooks Epithelial cells LM Ql (Urine sed) MODERATE Abnormal NONE SEEN /RARE [facility] Comment on above: Performed By: #### C VDTBH #### [facility] [address] [place] [address] Dr. Manfred Brooks Glucose Ql (U) Negative Normal NEGATIVE [facility] Comment on above: Performed By: #### C VDTBH #### [facility] [address] [place] [address] Dr. Manfred Brooks Hemoglobin Ql (U) Negative Normal NEGATIVE [facility] Comment on above: Performed By: #### C VDTBH #### [facility] [address] [place] [address] Dr. Manfred Brooks HYALINE CAST RARE Normal [facility] Comment on above: Performed By: #### C VDTBH #### [facility] [address] [place] [address] Dr. Manfred Brooks Ketones Ql (U) Negative Normal NEGATIVE [facility] Comment on above: Performed By: #### C VDTBH #### [facility] [address] [place] [address] Dr. Manfred Brooks LEUKOCYTES TRACE Abnormal NEGATIVE [facility] Comment on above: Performed By: #### C VDTBH #### [facility] [address] [place] [address] Dr. Manfred Brooks MUCOUS TRACE Abnormal NONE SEEN [facility] Comment on above: Performed By: #### C VDTBH #### [facility] [address] [place] [address] Dr. Manfred Brooks Nitrite Ql (U) Negative Normal NEGATIVE [facility] Comment on above: Performed By: #### C VDTBH #### [facility] [address] [place] [address] Dr. Manfred Brooks pH (U) 5.0 [pH] Normal 5-9 [facility] Comment on above: Performed By: #### C VDTBH #### [facility] [address] [place] [address] Dr. Manfred Brooks RBC NONE SEEN Abnormal 0-2 [facility] Comment on above: Performed By: #### C VDTBH #### [facility] [address] [place] [address] Dr. Manfred Brooks SPEC GRAVITY >=1.030 Abnormal 1.005-<=1.025 [facility] Comment on above: Performed By: #### C VDTBH #### [facility] [address] [place] [address] Dr. Manfred Brooks UA PROTEIN Negative Normal NEGATIVE/ TRACE [facility] Comment on above: Performed By: #### C VDTBH #### [facility] [address] [place] [address] Dr. Manfred Brooks Urobilinogen Qn (U) 0.2 {Antionette'U}/dL Normal 0.2 - 1. 0 [facility] Comment on above: Performed By: #### C VDTBH #### [facility] [address] [place] [address] Dr. Manfred Brooks WBC 2-5 Abnormal NONE SEEN [facility] Comment on above: Performed By: #### C VDTBH #### [facility] [address] [place] [address] Dr. Manfred Brooks XR CHEST 1 Von [...] CHE JACOBS Date: 2022-04-20 07:57 Normal [facility] INSULINon 02-05-2022 Insulin 21.9 uIU/mL Normal 2.6-24.9 [facility] Comment on above: Performed By: #### C VDTBH #### [facility] [address] [place] [address] Dr. Manfred Brooks BNPon 02-04-2022 Natriuretic peptide B (Bld) [Mass/Vol] 197.0 pg/mL Normal <=1,800.0 [facility] Comment on above: Performed By: #### E MILTON HOGAN #### [facility] [address] [place] [address] Dr. Manfred Brooks CBC AUTO DIFFon 02-04-2022 BASO # 0.1 103/ul Normal 0.0-0.1 [facility] Comment on above: Performed By: #### C BC #### [facility] [address] [place] [address] Dr. Manfred Brooks Basophils/100 WBC (Bld) 1.2 % Normal 0.2-2.0 [facility] Comment on above: Performed By: #### C BC #### [facility] [address] [place] [address] Dr. Manfred Brooks EO # 0.1 103/ul Normal 0.0-0.7 [facility] Comment on above: Performed By: #### C BC #### [facility] [address] [place] [address] Dr. Manfred Brooks Eosinophils/100 WBC (Bld) 2.1 % Normal 0.9-7.0 [facility] Comment on above: Performed By: #### C BC #### [facility] [address] [place] [address] Dr. Manfred Brooks Erythrocyte distribution width (RBC) [Ratio] 14.5 % Normal 11.0-15.0 [facility] Comment on above: Performed By: #### C BC #### [facility] [address] [place] [address] Dr. Manfred Brooks Hematocrit (Bld) [Volume fraction] 42.4 % Normal 36.0-48.0 [facility] Comment on above: Performed By: #### C BC #### [facility] [address] [place] [address] Dr. Manfred Brooks Hemoglobin (Bld) [Mass/Vol] 13.4 g/dL Normal 12.0-16.0 [facility] Comment on above: Performed By: #### C BC #### [facility] [address] [place] [address] Dr. Manfred Brooks IG # 0.02 10e3/ul Normal 0.00-0.03 [facility] Comment on above: Performed By: #### C BC #### [facility] [address] [place] [address] Dr. Manfred Brooks IG % 0.3 % Normal 0.0-0.5 [facility] Comment on above: Performed By: #### C BC #### [facility] [address] [place] [address] Dr. Manfred Brooks LYMPH # 2.2 103/ul Normal 1.2-3.8 [facility] Comment on above: Performed By: #### C BC #### [facility] [address] [place] [address] Dr. Manfred Brooks Lymphocytes/100 WBC (Bld) 35.6 % Normal 20.5-60.0 [facility] Comment on above: Performed By: #### C BC #### [facility] [address] [place] [address] Dr. Manfred Brooks MANUAL DIFF REQ NO Normal [facility] Comment on above: Performed By: #### C BC #### [facility] [address] [place] [address] Dr. Manfred Brooks MCH (RBC) [Entitic mass] 29.6 pg Normal 26.7-34.0 [facility] Comment on above: Performed By: #### C BC #### [facility] [address] [place] [address] Dr. Manfred Brooks MCHC (RBC) [Mass/Vol] 31.6 g/dL Normal 29.9-35.2 [facility] Comment on above: Performed By: #### C BC #### [facility] [address] [place] [address] Dr. Manfred Brooks MCV (RBC) [Entitic vol] 93.8 fL Normal 81.0-99.0 [facility] Comment on above: Performed By: #### C BC #### [facility] [address] [place] [address] Dr. Manfred Brooks MONO # 0.6 103/ul Normal 0.3-0.8 [facility] Comment on above: Performed By: #### C BC #### [facility] [address] [place] [address] Dr. Manfred Brooks Monocytes/100 WBC (Bld) 10.4 % Normal 1.7-12.0 [facility] Comment on above: Performed By: #### C BC #### [facility] [address] [place] [address] Dr. Manfred Brooks NEUT # 3.1 103/ul Normal 1.4-6.5 [facility] Comment on above: Performed By: #### C BC #### [facility] [address] [place] [address] Dr. Manfred Brooks Neutrophils/100 WBC (Bld) 50.4 % Normal 43.0-75.0 [facility] Comment on above: Performed By: #### C BC #### [facility] [address] [address] [address] Manfred Brooks Platelet mean volume (Bld) [Entitic vol] 10.1 fL Normal 9.5-13.5 [facility] Comment on above: Performed By: #### C BC #### [facility] [address] [address] [address] Manfred Brooks PLT 310 103/ul Normal 150-450 [facility] Comment on above: Performed By: #### C BC #### [facility] [address] [address] [address] Manfred Brooks RBC 4.52 106/ul Normal 4.20-5.40 [facility] Comment on above: Performed By: #### C BC #### [facility] [address] [place] [address] Dr. Manfred Brooks WBC 6.1 103/ul Normal 4.0-11.0 [facility] Comment on above: Performed By: #### C BC #### [facility] [address] [place] [address] Dr. Manfred Brooks FREE THYROXINE INDEX T7on FTI 2.16 Normal [facility] Comment on above: Performed By: #### B MANN HSTROPN, CK #### [facility] [address] [place] [address] Dr. Manfred Brooks T3U 36.0 % Normal 23.5-40.5 [facility] Comment on above: Performed By: #### B MP, HSTROPN, CK #### [facility] [address] [place] [address] Dr. Manfred Brooks T4 [Mass/Vol] 6.00 ug/dL Normal 4.80-13.90 [facility] Comment on above: Performed By: #### B MANN, HSTROPN, CK #### [facility] [address] [place] [address] Dr. Manfred Brooks GLYCOHEMOGLOBIN A1Con 2021 ADA RECOMMENDATION SEE BELOW Normal [facility] Comment on above: Result Comment: ADA RECOMMENDED LIMIT 4.0 - 6.0 ADA THERAPEUTIC TARGET < 7.0 ACTION SUGGESTED > 7.0 Performed By: #### B JAMILAH DARNELL CK #### [facility] [address] [place] [address] Dr. Manfred Brooks Glucose [Mass/Vol] 114 mg/dL Normal [facility] Comment on above: Performed By: #### B JAMILAH DARNELL, CK #### [facility] [address] [address] [address] Manfred Brooks HbA1c (Bld) [Mass fraction] 5.6 % Normal 4.5-6.2 [facility] Comment on above: Performed By: #### B JAMILAH DARNELL, REY #### [facility] [address] [place] [address] Dr. Manfred Brooks IRONon 02-04-2022 Iron [Mass/Vol] 79.0 ug/dL Normal 50.0-170.0 [facility] Comment on above: Performed By: #### MILTON BENOIT #### [facility] [address] [place] [address] Dr. Manfred Brooks LIPID PROFILEon 02-04-2022 CHOL-HDL RATIO NORM SEE BELOW Normal [facility] Comment on above: Result Comment: 3.3 - 4.4 LOW RISK 4.4 - 7.1 AVERAGE RISK 7.1 - 11.0 MODERATE RISK >11.0 HIGH RISK Performed By: #### MILTON BENOIT #### [facility] [address] [place] [address] Dr. Manfred Brooks Cholesterol [Mass/Vol] 134 mg/dL Normal <=200 [facility] Comment on above: Performed By: #### MILTON BENOIT #### [facility] [address] [place] [address] Dr. Manfred Brooks Cholesterol in HDL [Mass/Vol] 41 mg/dL Normal 40-60 [facility] Comment on above: Performed By: #### MILTON BENOIT #### [facility] [address] [place] [address] Dr. Manfred Brooks Cholesterol in LDL [Mass/Vol] 62.0 mg/dL Normal [facility] Comment on above: Performed By: #### ANU BENOITRO #### [facility] [address] [place] [address] Dr. Manfred Brooks Cholesterol.total/Ch olesterol in HDL [Mass ratio] 3.3 {ratio} Normal [facility] Comment on above: Performed By: #### ANU BENOITRO #### [facility] [address] [place] [address] Dr. Manfred Brooks HDL NORMAL > or = 60 mg/dl - LO W CARDIOVASCULAR RISK <40 mg/dl - HIGH CARDIOVASCULAR RISK Normal [facility] Comment on above: Performed By: #### ANU BENOITRO #### [facility] [address] [place] [address] Dr. Manfred Brooks LDL CALC NORMAL SEE BELOW Normal [facility] Comment on above: Result Comment: <100 mg/dl OPTIMAL 100 - 129 mg/dl NEAR OR ABOVE OPTIMAL 130 - 159 mg/dl BORDERLINE HIGH 160 - 189 mg/dl HIGH >190 mg/dl VERY HIGH Performed By: #### ANU BENOITRO #### [facility] [address] [place] [address] Dr. Manfred Brooks Triglyceride [Mass/Vol] 155 mg/dL Critically high <=150 [facility] Comment on above: Performed By: #### ANU BENOITRO #### [facility] [address] [place] [address] Dr. Manfred Brooks VLDL CALC 31.0 mg/dL Normal [facility] Comment on above: Performed By: #### ANU BENOITRO #### [facility] [address] [place] [address] Dr. Manfred Brooks PROF 14(COMP METB)on 022 Albumin [Mass/Vol] 3.9 g/dL Normal 3.4-5.0 [facility] Comment on above: Performed By: #### B MP, HSTROPN, CK #### [facility] [address] [place] [address] Dr. Manfred Brooks Albumin/Globulin [Mass ratio] 1.2 {ratio} Normal [facility] Comment on above: Performed By: #### B MANN HSTROPN, CK #### [facility] [address] [place] [address] Dr. Manfred Brooks ALP [Catalytic activity/Vol] 63 U/L Normal 46-116 [facility] Comment on above: Performed By: #### B MANN, HSTROPN, CK #### [facility] [address] [place] [address] Dr. Manfred Brooks ALT [Catalytic activity/Vol] 25 U/L Normal 14-59 [facility] Comment on above: Performed By: #### B MANN, HSTROPN, CK #### [facility] [address] [place] [address] Dr. Manfred Brooks Anion gap [Moles/Vol] 10.8 mmol/L Normal [facility] Comment on above: Performed By: #### B MANN, HSTROPN, CK #### [facility] [address] [place] [address] Dr. Manfred Brooks AST [Catalytic activity/Vol] 14 U/L Critically low 15-37 [facility] Comment on above: Performed By: #### B MANN, HSTROPN, CK #### [facility] [address] [place] [address] Dr. Manfred Brooks Bilirubin [Mass/Vol] 0.6 mg/dL Normal 0.2-1.0 [facility] Comment on above: Performed By: #### B MANN, HSTROPN, CK #### [facility] [address] [place] [address] Dr. Manfred Brooks Calcium [Mass/Vol] 8.6 mg/dL Normal 8.5-10.1 [facility] Comment on above: Performed By: #### B MP, HSTROPN, CK #### [facility] [address] [place] [address] Dr. Manfred Brooks Chloride [Moles/Vol] 104 mmol/L Normal 98-107 [facility] Comment on above: Performed By: #### B MP, HSTROPN, CK #### [facility] [address] [address] [address] Manfred Brooks CO2 [Moles/Vol] 31.5 mmol/L Normal 21.0-32.0 [facility] Comment on above: Performed By: #### B MP, HSTROPN, CK #### [facility] [address] [address] [address] Manfred Brooks Creatinine [Mass/Vol] 0.67 mg/dL Normal 0.55-1.02 [facility] Comment on above: Performed By: #### B MP, HSTROPN, CK #### [facility] [address] [place] [address] Dr. Manfred Brooks EGFR-AF S[place]OREAN >60 Normal >=60 [facility] Comment on above: Performed By: #### B MP, HSTROPN, CK #### [facility] [address] [address] [address] Manfred Brooks EGFR-NON AF [place] >60 Normal >=60 [facility] Comment on above: Performed By: #### B MP, HSTROPN, CK #### [facility] [address] [place] [address] Dr. Manfred Brooks Globulin (S) [Mass/Vol] 3.2 g/dL Normal [facility] Comment on above: Performed By: #### B MP, HSTROPN, CK #### [facility] [address] [address] [address] Manfred Brooks Glucose [Mass/Vol] 102 mg/dL Normal 74-106 [facility] Comment on above: Performed By: #### B MP, HSTROPN, CK #### [facility] [address] [place] [address] Dr. Manfred Brooks Potassium [Moles/Vol] 4.3 mmol/L Normal 3.5-5.1 [facility] Comment on above: Performed By: #### B MP, HSTROPN, CK #### [facility] [address] [place] [address] Dr. Manfred Brooks Protein [Mass/Vol] 7.1 g/dL Normal 6.1-8.2 [facility] Comment on above: Performed By: #### B MANN HSTROPN, CK #### [facility] [address] [address] [address] Manfred Brooks Sodium [Moles/Vol] 142 mmol/L Normal 136-145 [facility] Comment on above: Performed By: #### B MANN HSTROPN, CK #### [facility] [address] [place] [address] Dr. Manfred Brooks Urea nitrogen [Mass/Vol] 19.0 mg/dL Critically high 7.0-18.0 [facility] Comment on above: Performed By: #### B MANN HSTROPJim, CK #### [facility] [address] [place] [address] Dr. Manfred Brooks Urea nitrogen/Creatinine [Mass ratio] 28.4 mg/mg Normal [facility] Comment on above: Performed By: #### B MANN HSTROPN, CK #### [facility] [address] [place] [address] Dr. Manfred Brooks TSHon 02-04-2022 TSH 0.317 uIU/mL Critically low 0.470-4.680 [facility] Comment on above: Performed By: #### B MANN HSTROPN, CK #### [facility] [address] [place] [address] Dr. Manfred Brooks TSH RANGE SEE BELOW Normal [facility] Comment on above: Result Comment: <0.3 4 UIU/ml HYPERTHYROID 0.34-5.60 UIU/ml EUTHYROID >5.60 UIU/ml HYPOTHYROID Performed By: #### B MANN HSTROPN, CK #### [facility] [address] [place] [address] Dr. Manfred Brooks VITAMIN D 25 OHon 02-04-2022 VIT D 25-OH 35.9 ng/mL Normal [facility] Comment on above: Performed By: #### MILTON BENOIT #### [facility] [address] [place], [place] [address] Dr. Manfred Brooks VIT D RANGES SEE BELOW Normal [facility] Comment on above: Result Comment: <20 ng/mL Vit D deficient 20 - <30 ng/mL Vit D insufficient 30 - 100 ng/mL Vit D sufficient >100 ng/mL Potential Toxicity Performed By: #### E MILTON HOGAN #### [facility] [address] [place], [place] [address] Dr. Manfred Brooks Ambulatory Clinical Summaryo n 04-16-2021 Ambulatory Clinical Summary {[id number]}CD:[id number] Normal [facility] General Surgery Office/Clini c Noteon 04-16-2021 General [...] Salvatore Ogden, JEM Only if needed [address] [place] [address]- Additional Instructions: Problem List/Past Medical [...] (COVID-19) mRNA BNT-162b2 vax 11/30/2020 Recorded Normal [facility] Comment on above: Result Comment: Elec tronically Signed By: IZZY REYES, Salvatore River\Date and Time Signed: 04/16/21 13:20 EDT Pathology Noteon 04-12-2021 Pathology Note [id number]. 00CD:127 [facility] Ambulatory Clinical Summaryo n 04-09-2021 Ambulatory Clinical Summary {[id number]}CD:[id number] [facility] Provider Letter FTon 03-29 Provider Letter [facility] March 29, 2021 Cam Bates, [address] [place] [address] Re: BETTY CAMARENA Date of : 1940 Thank you for your referral of Betty Camarena who was seen on consultation on March 21, 2021, for two moles on right cheek. An excisional biopsy is planned. I have enclosed my consultation note for your review. I will be happy to follow Betty. Sincerely, Salvatore Moore MD General Surgery [facility] Ambulatory Clinical Summaryo n 03-21-2021 Ambulatory Clinical Summary {[id number]}CD:[id number] [facility] Patient Educationon 03-21-20 21 Patient Education Physical [...] your health care provider or diet and independent living specialist (dietitian). This may include: ? Eating [...] weight koehler (more content not included)... Normal [facility] Physician Referralon 021 Physician Referral [id number] 60 [id number] 0CD:127 Normal [facility] Cardiovascular Lab Reporton 04-17-2020 Cardiovascular Lab Report [facility] Patient Name: [facility] MR #: [id number] Physician: Denisa Pitt of [place], M.D. Medicine Service Date: 04/16/2020 Division of Birthdate: 1940 Cardiology Room #: [facility] Cardiovascular Services [place] [address] [place] [address] Cardiovascular Laboratory Report INDICATION: The patient is [...] signed informed consent. She was brought to salvage laborer in a fasting state. The left wrist area was prepped and draped in the usual fashion. Modified Raleigh's test was favorable on the left. Access in the left radial artery was obtained using micropuncture technique and ultrasound guidance. A 6-Khmer x 11 cm Hydrophilic sheath was advanced. Verapamil was given through the sheath and heparin was administered intravenously. The JR4 diagnostic catheter was advanced over the angled Glidewire into the left ventricular cavity and used to perform left heart catheterization with measurement of pressures. Pullback across the aortic valve was performed with measurement of pressures. Bilateral selective coronary angiography was then performed using 6-Khmer JL4 and JR4 diagnostic catheters. Catheters were [...] 40% proximal stenosis. SUMMARY OF FINDINGS: 1. Zxus-vv-pedxcpfh 2-vessel coronary artery disease with 30% mid LAD, 20% mid RCA, 40% distal RCA, 40% proximal PDA stenosis, but no occlusive disease and minimal disease in the circumflex vessel. 2. Moojnqhr-mc-wzattl elevation of LVEDP. 3. Uncontrolled systemic hypertension. [...] Alejandre M.D. Date Trans: 04/17/2020 09:09 A/anna [id number] cc: Cam Bates M.D. [address] [id number] [facility] Encounters Encounter Date Encounter Type Care Provider Facility Start: 07-07-2025 End: 07-07-2025 ambulatory KRUNAL COATES [facility] Start: 12-26-2024 End: 12-26-2024 ambulatory DENISA ALEJANDRE [facility] Start: 01-19-2023 End: 01-20-2023 ambulatory LEANNA [...] End: 04-17-2020 Patient encounter procedure PROVIDER UNKNOWN Facility:[facility] Payers Date Payer Category Payer Medicare [id number] 1959 Private Health Insurance [facility] [id number] 1959 Private Health Insurance [id number] 1940 Unknown [id number] 2.16.8 [id number] 1940 Unknown [id number] 2.16.84 [id number] 1940 Unknown [id number] 2.16.84 [id number] 1940 Unknown [id number] 2.16.84 [id number] 1940 Unknown [id number] 2.16.84 0.1.323131.3.579.2.593 1940 Unknown [id number] 2.16.84 0.1.955937.3.579.2.593 1940 Unknown [id number] 2.16.84 0.1.543370.3.579.2.593 1940 Unknown [id number] 2.16.84 0.1.589578.3.579.2.593 1940 Unknown [id number] 2.16.84 [id number] Progress note 07-07-2025 Note Date & Type [...] panel in March 2024. Patient presented to [facility] ED last month for chest pain. [...] A DAY ergocalciferol (Vitamin D-2) 1.25 MG (24151 Units) capsule Vitamin D furosemide (LASIX) 20 [...] with results with (more content not included)... [facility] Progress note 12-26-2024 Note Date & Type Note Facility 12-26-2024 Note [facility] Subjective Betty Camarena is a 84 y.o. year old female patient being seen for 1 year follow up CAD, PAF, hypertension, chronic diastolic heart failure, and carotid artery stenosis. She had routine labs with lipid panel in March 2024. Patient presented to [facility] ED last month for chest pain. She says she made the mistake of lifting a heavy object. C/o more frequent episodes of palpitations, usually occurring at night when she lies down. Denies chest pain, LE edema, and bleeding on Eliquis. Says her BP at home today was 136/72. Patient Active Problem List Diagnosis Coronary artery disease involving [place] coronary artery of [place] heart without angina pectoris Chronic diastolic heart [...] evaluated in the emergency room at the [facility] with flank pain, fever and was [...] , Rfl: ergocalciferol (Vitamin D-2) 1.25 MG (75159 Units) capsule, Vitamin D, Disp: , Rfl: [...] (100 mg) b (more content not included)... [facility] Clinical Note 04-09-2021 Note Date & [...] SARS-CoV-2 (COVID-19) mRNA BNT-162b2 vax 11/30/2020 Recorded [facility] Comment on above: Result Comment: Elec tronically Signed By: IZZY REYES, Salvatore River\Date and Time Signed: 04/09/21 17:10 EDT Clinical Note 03-23-2021 Note Date & Type Note Facility 03-23-2021 Note Chief Complaint Consultation for excision of Moles HPI Staff 80 year old female referred by Dr. Batse on consultation of two moles. One mole is located on the right side of the face near the jaw line. The second mole is located on the left flank region of the abdomen. Denies bleeding, itching, drainage, change in color, size or texture. C/o of irritation and uncomfortable when showering. Taking Aspirin [address] Daniel (gizzard skin remover). Hx of Hypertension, Diastolic heart failure, mitral [...] Directed Allergies C (more content not included)... [facility] Comment on above: Result Comment: Elec tronically [...] and content) DATE CREATED AUTHOR 05/03/2020 [facility] DATE CREATED AUTHOR AUTHOR'S ORGANIZ ATION 04/17/2021 [facility] DATE CREATED AUTHOR AUTHOR'S ORGANIZ ATION 01/25/2023 [facility] DATE CREATED AUTHOR AUTHOR'S ORGANIZ ATION 07/14/2025 [facility] FOR RECORDS PERTAINING TO PATIENTS WHO ARE [...] BE BASED ON THE PRIMARY CLINICAL RECORDS. [facility] [place] [facility]. provides no warranty or guarantee of the accuracy or completeness of information in this document.
[2025-07-24 16:15] LABS: Free T3 2.85 pg/mL (2.18-3.98); Thyroid Stimulating Hormone 0.103 uIU/mL (0.358-3.740)
== END 2025-07-24 15:10 | disposition home or self-care (01) ==
LOC: LAB 15:11
PROVIDERS: PCP Family Medicine; Visit Provider Family Medicine
DX: E05.90 Thyrotoxicosis, unspecified without thyrotoxic crisis or storm (principal)
CPT/HCPCS: 36415; 84436; 84443; 84481

== ENCOUNTER 2025-08-02 07:52 | Emergency (ER) | payer MEDICARE, OTHER, SELFPAY ==
--- OUTSIDE RECORDS SUMMARY | 2024-02-24 07:15 | XMS_ITS ---
Author Organization The [facility] in [place] Address [address] [place] [address] Care Team Providers Care Development Team Lead Name Role Phone Malvin Chen Primary Care Provider CAM CHEN Unavailable [phone] REASON FOR VISIT yearly Encounters Encounter Location Date Provider Diagnosis [facility] [address] [place] [address] 02/24/2024 CAM CHEN Plan Of Treatment No Information Progress Notes * Betty CAMAREAN KDOB:[birth year] (84 yo F)Acc No.[id number]:02/24/2024 UNLOCKED PROGRESS NOTE Progress Note Patient: Alin QUINTERO Betty Celeste :?Cam Chen M.D.:1940???Age:83 Y ???Sex:FemaleDate:4Phone:[phone]:[address] [facility], [address], [place], [id number]:Malvin Chen Subjective: * Chief Complaints: * 1 . Yearly. * Medical History: Objective: * Vitals: Assessment: Plan: * Treatment: * * Electronic signature of CAM CHEN MD on 08/02/2025 at 07:57 AM EDTSign off status: PendingVisit Status:?CANC (Cancelled) * Provider: Yuni Chen M.D. Date: 02/24/2024 Generated for Printing/Faxing/eTransmitting on:?08/02/2025 07:57 AM EDT
--- OUTSIDE RECORDS SUMMARY | 2024-11-08 06:30 | XMS_ITS ---
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 Name Role Phone Malvin Bates Primary Care Provider REASON FOR VISIT Medicare Wellness- Initial Visit Encounters Encounter Location Date Provider Diagnosis [facility] [address], [place] [address] 11/08/2024 Malvin Bates Plan Of Treatment No Information Progress Notes * Betty CAMARENA KDOB:[birth year] (84 yo F)Acc No.[id number]:11/08/2024 UNLOCKED PROGRESS NOTE Progress Note Patient: Betty WELLS :?Norris Bates (CASSIE), MDDOB:1940???Age: 84 Y???Sex:FemaleDate:11/08/2024Phone:[phone]:[address], [address], [place], [id number] Subjective: * Chief Complaints: * 1 . Medicare Wellness- Initial Visit. * Medical History: Objective: * Vitals: Assessment: Plan: * Treatment: * * Electronic signature of Malvin Bates MD, [id number] on 08/02/2025 at 07:57 AM EDT Sign off status: PendingVisit Status:?CANC (Cancelled) * Provider: Yuni Bates MD (TTC) Date: 0 11/08/2024 Generated for Printing/Faxing/eTransmitting on:?08/02/2025 07:57 AM EDT
--- OUTSIDE RECORDS SUMMARY | 2025-07-24 15:00 | XMS_ITS | Encounter Summary ---
Author Organization [facility] Address [address] [place] [address] Care Team Providers [employer] Front Desk Attendant Name Role Phone Norris Bates MD Primary Care Provider [phone] Reason for Visit * ReasonCommentsFollow-upPatient is here today for a 3 week follow. With Echo Coronary Artery DiseaseHypertensionAtrial FibrillationCongestive Heart Failure PalpitationsPalpitations/racing Encounter Details DateTypeDepartmentCare Team (Latest Contact Info)Uejdbxsxpfh55/13/2025 3:00 PM EDTOffice Visit [facility] at [facility] [address] [place] [address] Krunal Kevin, CUSTOMER ORDER CLERK [address] [place] [address] Primary hypertension (Primary Dx); Palpitations; Coronary artery disease involving [place] coronary artery of [place] heart without angina pectoris; Paroxysmal atrial fibrillation (CMS/HCC); Benign hypertensive heart disease with heart failure (CMS/HCC); Chronic diastolic congestive heart failure (CMS/HCC); Bilateral carotid artery stenosis; Mixed hyperglyceridemia Social History Tobacco UseTypesPacks/DayYears UsedDateSmoking Tobacco: FormerCigarettes0.540 1964 - 2005Smokeless Tobacco: NeverAlcohol UseStandard Drinks/WeekCommentsNot Currently0 (1 standard drink = 0.6 oz pure alcohol)holidayUT Safety & EnvironmentAnswerDate RecordedFear of Current or Ex-PartnerNot on file12/03/2023 Emotionally AbusedNot on file12/03/2023hysically AbusedNot on file02/ Sexually AbusedNot on file4Physically or Sexually AbusedNot on file 4CommentsNoSex and Gender InformationValueDate RecordedSex Assigned at MfmapQckohe53/26/2025 10:00 AM EDTLegal TvhFtesza03/30/2022 12:01 AM EDTGender HzangrblTeevfo20/26/2025 10:00 AM EDTSexual OrientationHeterosexual or Mdyjpvku50/26/2025 10:00 AM EDTdocumented as of this encounter Last Filed Vital Signs Vital SignReadingTime TakenCommentsBlood Dnmubvvk797/ 3:05 PM EDT Lusob998307/24/2025 3:05 PM EDTTemperature--Respiratory Rate--Oxygen Wgivjkcowx19% 07/24/2025 3:05 PM EDTInhaled Oxygen Concentration--Qiwgsw83 kg (161 lb) 07/24/2025 3:05 PM NJFAtzebx028.9 cm (4' 11 )07/24/2025 3:05 PM EDTBody Mass Index32.5207/24/2025 3:05 PM EDTdocumented in this encounter Functional Status * BPAnswerDate of AobrvzehdsIjckjd052/ 3:05 PM Selena Rowland MA * PulseAnswerDate of QsygqowuyqBwvtdm4471/13/2025 3:05 PM Selena Rowland MA * Patient PositionAnswerDate of OampbuszsfOwrsgcSgsutjm16/13/2025 3:05 PM EDT Selena Montiel MA * BPAnswerDate of WjsbapwodaYipfbn242/ 3:05 PM Selena Rowland MA * PulseAnswerDate of CfkgcjdvboDzoeby4217/13/2025 3:05 PM Selena Rowland MA * OhS6KowfndErvq of EzgsozsydpHmvyqa4946/13/2025 3:05 PM Selena Rowland MA * BP LocationAnswerDate of AssessmentAuthorRight arm07/24/2025 3:05 PM EDT Selena Montiel MA * Patient PositionAnswerDate of XhtmtlakmmKajzkaCxirjqe89/13/2025 3:05 PM EDT Selena Montiel MA documented as of this encounter Progress Notes * Krunal KevinCEZAR - 07/24/2025 3:00 PM EDT Images from the original note were not included. SUBJECTIVE Reason for Visit: Betty Smith is a 84 y.o. year old female patient being seen for 3 weeks follow-up visit. HPI: Betty Smith is a 84 y.o. year old female with significant medical history of CAD, PAF, hypertension, HFpEF, and carotid artery stenosis. 07/24/2025 office visit: Patient seen and evaluated in the office today for follow-up visit, accompanied by her daughter. She reports her palpitations are stable. Denies chest pain, shortness of breath, lower extremity edema, or lightheadedness or dizziness. 07/07/2025 office visit: Patient was seen evaluated in the office today, accompanied by her daughter. She reports chronic palpitations but they have increased in frequency recently over the last few weeks. She denies any chest pain, shortness of breath, lower extremity edema, or lightheadedness or dizziness. [facility] home and her blood pressures ranged from 120-140 systolic. 12/16/2024 office visit (Dr. Knapp): Betty Smith is a 84 y.o. year old female patient being seen for 1 year follow up CAD, PAF, hypertension, chronic diastolic heart failure, and carotid artery stenosis. She had routine labs with lipid panel in March 2024. Patient presented to [facility] ED last month for chest pain. She says she made themistake of lifting a heavy object. C/o more frequent episodes of palpitations, usually occurring atnight when she lies down. Denies chest pain, LE edema, and bleeding on Eliquis. Says her BP at hometoday was 136/72. 01/19/2024 office visit (Kristin Padilla): After her last visit we had increased Toprol to 100mg daily for better BP control. After this, her BP seemed to trend up. BP had been averaging 130- 160s/80s. She had a high reading of 179/90 [...] of metoprolol in the PM and she statesshe felt better in the morning. 01/07/2024 Patient [...] as flutter was not able to be inducedduring EP study. she continues to take amiodarone [...] A DAY ergocalciferol (Vitamin D-2) 1.25 MG (94850 Units) capsule Vitamin D furosemide (LASIX) 20 mg, oral, Daily PRN isosorbide mononitrate ER (Imdur) 60 mg 24 hr tablet isosorbide mononitrate ER 60 mg tablet,extended release 24 hr TAKE 1 TABLET BY MOUTH TWICE A DAY levothyroxine (SYNTHROID, LEVOXYL) 800 mcg, Daily liothyronine (Cytomel) 5 mcg tablet 3 tablets, Daily losartan (COZAAR) 100 mg, oral, Daily metoprolol succinate XL (Toprol-XL) 50 mg 24 hr tablet TAKE TWO TABLETS BY MOUTH IN THE MORNING ANDONE TABLET DAILY IN THE EVENING DO NOT CRUSH OR CHEW. metoprolol succinate XL (TOPROL-XL) 100 mg, oral, Daily, Do not crush or chew. spironolactone (ALDACTONE) 12.5 mg, oral, Daily Recent Labs: No visits with results within 6 Month(s) from this visit. Latest known visit with results is: Admission on 04/23/2023, Discharged on 04/23/2023 Component Date Value Ventricular Rate 04/23/2023 57 Atrial Rate 04/23/2023 57 [place] Interval 04/23/2023 186 QRS DURATION 04/23/2023 88 QT Interval 04/23/2023 472 QTC CALCULATION(BAZETT) 04/23/2023 459 P [place] 04/23/2023 69 R-[place] 04/23/2023 5 T Wave [place] 04/23/2023 55 Protime 04/23/2023 14.3 INR 04/23/2023 1.10 Glucose POC 04/23/2023 103 Ventricular Rate 04/23/2023 65 Atrial Rate 04/23/2023 65 [place] Interval 04/23/2023 170 QRS DURATION 04/23/2023 92 QT Interval 04/23/2023 484 QTC CALCULATION(BAZETT) 04/23/2023 503 P [place] 04/23/2023 65 R-[place] 04/23/2023 -4 T Wave [place] 04/23/2023 59 I have personally reviewed and anaylzed the following laboratory results above. These findings havebeen analyzed in the context of the patient's clinical presentation. Cardiovascular Diagnostic Studies: TTE 07/19/2025: RVSP = 41 mmHg Echocardiogram on 01/06/2023 Cath 04/16/2020 Cardiac catheterization 04/16/2020: Performed in the setting of shortness of breath and a stress testshowing ischemia in the anterior wall and transient ischemic dilatation: Mild to moderate two-vessel coronary artery disease with 30% mid LAD, 20% mid RCA, 40% distal RCA, 40% proximal PDA stenosis, but no occlusive disease and minimal disease in the circumflex vessel. Moderate to severe elevation of LVEDP. Uncontrolled systemic hypertension. Carotid ultrasound 04/13/2020: 0 to 49% flow stenosis in the internal carotid arteries. 12 Lead ECG: No results found for this or any previous visit (from the past 4464 hours). Event monitor August-September 2023 I have personally reviewed and analyzed all available cardiac diagnostic tests and imaging reports.Findings have been analyzed in the context of the patient's clinical status. Assessment and Plan #Palpitations Patient states she has had palpitations since she was young, they are chronic Wore event monitor in September 2023 to r/o afib. --- No A-fib seen, sinus bradycardia burden 20%, SVT 2 episodes longest 4 seconds. PVC less than 1%, PAC less than 1%. Today, she reports her palpitations are stable not any worse than they usually are. Patient was offered a 30-day event monitor but elected to defer at this time. She states she will contact the office if her palpitations worsen. Labs 07/07/2025: Sodium 142, potassium 4.3, BUN 14, creatinine 0.81, eGFR greater than 60, glucose 125, calcium 9.7,proBNP 253, albumin 3.9, TSH 0.030, FT3 5.74, FT4 1.03 Labs 03/22/2025: Sodium 142, potassium 4.6, BUN 22, creatinine 0.96, eGFR 56, glucose 96, hemoglobin A1c 6.0%, proBNP 830, albumin 4.0, TSH 0.064, T4 5.0, T3 2.6 Twelve-lead ECG today: SR with PVC. #Hypertension Blood pressure today is 145/67, heart rate 80 Elevated I reviewed her blood pressure log from home and her blood pressures ranged from 120-140 systolic. Of note, metoprolol was recently reduced due to low blood pressure of 101/55 with complaints of no energy, which was on June 07, 2025 - Continue losartan 100 mg daily - Continue metoprolol succinate 50 mg twice daily - Continue spironolactone 12.5 mg daily #CAD Denies chest pain Mild CAD per cardiac catheterization 2019; Mild to moderate two-vessel coronary artery disease with30% mid LAD, 20% mid RCA, 40% distal RCA, 40% proximal PDA stenosis, but no occlusive disease and minimal disease in the circumflex vessel. She is not on aspirin due to being on Eliquis for A-fib - Continue atorvastatin 10 mg daily - Continue Imdur 60 mg daily - Continue losartan 100 mg daily - Continue metoprolol succinate 100 mg daily (decreased from 150 mg in May for low BP) #Paroxysmal A-fib [id number] = at least 5 (female, age, heart failure, hypertension) - Continue metoprolol succinate 100 mg daily - Continue apixaban 5 mg twice daily #HFpEF NYHA II Appears euvolemic, compensated TTE 07/19/2025: EF 55-60%, mild concentric LVH with normal systolic function, grade 1 diastolic function, no significant valvular abnormalities, mildly elevated right-sided pressures. TTE 01/06/2023: EF > 55%, normal diastolic function. Labs 07/07/2025: Sodium 142, potassium 4.3, BUN 14, creatinine 0.81, eGFR greater than 60, glucose 125, calcium 9.7,proBNP 253, albumin 3.9, TSH 0.030, FT3 5.74, FT4 1.03 GDMT: - Continue spironolactone 12.5 mg daily - No need for loop diuretic /could consider SGLT2 inhibitor #Bilateral carotid artery stenosis Carotid ultrasound 01/03/2025: Mild plaque formation in right and left carotid 50-69% stenosis of the right internal carotid artery Lipid panel stable, LDL 35 03/17/2024 - Continue atorvastatin 10 mg daily #Hyperlipidemia Lipid panel 03/22/2025 LDL 30, HDL 45, triglycerides 195, total cholesterol 114 Lipid panel 03/17/2024: LDL 35, HDL 43, triglycerides 159, total cholesterol 109 Stable - Continue atorvastatin 10 mg daily #Abnormal thyroid levels Labs 07/07/2025: TSH 0.030, FT3 5.74, FT4 1.03 On Synthroid ---> recently reduced to half dose - Patient instructed to follow-up with PCP regarding thyroid levels Plan Overview: Patient is instructed to follow-up with PCP regarding abnormal thyroid levels Follow-up in 3 months This note was partially composed using voice recognition software. While every effort was made to ensure accuracy, some unintentional child life therapist errors may be present. EDIE [facility] Cardiovascular Medicine [1] Past Medical History: Diagnosis Date Abnormal ECG Arrhythmia Arthritis Atrial fibrillation (CMS/HCC) CHF (congestive heart failure) (CMS/HCC) Coronary artery disease Hyperlipidemia Hypertension Hypothyroidism Obesity BMI 34.14 [2] Past Surgical History: Procedure Laterality Date CARDIAC CATHETERIZATION CHOLECYSTECTOMY COLONOSCOPY HYSTERECTOMY UPPER GASTROINTESTINAL ENDOSCOPY [3] Patient Active Problem List Diagnosis Coronary artery disease involving [place] coronary artery of [place] heart without angina pectoris Chronic diastolic heart failure, NYHA class 2 (CMS/HCC) Bilateral carotid artery stenosis Benign essential HTN Dyspnea Persistent atrial fibrillation (CMS/HCC) Paroxysmal atrial fibrillation (CMS/HCC) [4] Social History Tobacco Use Smoking status: Former Current packs/day: 0.00 Average packs/day: 0.5 packs/day for 40.0 years (20.0 ttl pk-yrs) Types: Cigarettes Start date: 1962 Quit date: 2005 Years since quittin.7 Smokeless tobacco: Never Substance Use Topics Alcohol use: Not Currently Comment: holiday Drug use: Never [5] Allergies Allergen Reactions Digoxin Nausea Only HIVES (SMALLER) Diltiazem Hives Per patient / PCP HIVES (SMALLER) documented in this encounter Plan of Treatment Not on file documented as of this encounter Visit Diagnoses Diagnosis Primary hypertension- Primary Unspecified essential hypertension Palpitations Coronary artery disease involving [place] coronary artery of [place] heart without angina pectoris Paroxysmal atrial fibrillation (CMS/HCC) Atrial fibrillation Benign hypertensive heart disease with heart failure (CMS/HCC) Chronic diastolic congestive heart failure (CMS/HCC) Bilateral carotid artery stenosis Occlusion and stenosis of carotid artery without mention of cerebral infarction Mixed hyperglyceridemia Hyperchylomicronemia documented in this encounter Care Teams Team MemberRelationshipSpecialtyStart DateEnd Date Norris Bates MD [address] [place] [address] PCP - General12/24/22documented as of this encounter
[2025-08-02 07:58] VITALS: BP 145/70; PULSE 72; TEMP 36.3; O2SAT 94; BMI 32.3
--- OUTSIDE RECORDS SUMMARY | 2025-08-02 07:58 | XMS_ITS | Patient Health Record ---
Author Organization [facility] in [place] Address [address] [place] [address] Care Team Providers Care Formula Room Worker Name Role Phone Malvin Chen Primary Care Provider [phone] Allergies Allergen (clinical drug ingredient) Drug/Non Drug Allergy documented on EMR Reaction Allergy Type Onset Date Status diltiazem Cardizem hives Drug Allergy ActivedigoxinDigoxinnauseaDrug AllergyActive Results Component Value Reference Range Notes PROF CHEM 8 (BAS METB) Reviewed date:12/27/2024 08:42:10 PM Interpretation: Performing Lab: Notes/Report: [facility] , Sodium 143 136-145 mmol/L Potassium4.03.5-5.1 mmol/GIxqrnkne19002-093 mmol/LCarbon Kczrkwe68.721.0-32.0 mmol/LAnion Gap12.2Nbdhvqe23467-271 mg/dLBlood Urea Ljalggvg16.07.0-18.0 mg/dL Creatinine0.780.55-1.02 mg/dLEstimated GFR ( Kaleigh>60>=60 mL/min/1.73m 2Estimated GFR (Non- Lary>60>=60 mL/min/1.73m 2BUN Creatinine Ratio23.1 Calcium9.48.5-10.1 mg/dLPerforming Lab:see noteML - [facility] LBCBC AUTO DIFF Reviewed date:07/07/2025 11:58:07 AM Interpretation: Performing Lab: Notes/Report: [facility] ,White Blood Count6.04.0-11.0 10 3/uLRed Blood Count4.184.20-5.40 10 6/uL Rfdxcdjrhd32.612.0-16.0 g/xPWvsuczlifj99.636.0-48.0 %Mean Corpuscular Bmrbnt62.7 81.0-99.0 fLMean Corpuscular Lbuktdnnmu87.126.7-34.0 pgMean Corpuscular HGB Conc 31.829.9-35.2 g/dLRed Cell Distribution Width13.111.0-15.0 %Platelet Ibqir541 150-450 10 3/uLMean Platelet Mhtyyb40.29.5-13.5 fLNeutrophils Percent Auto69.5 43.0-75.0 %Lymphocytes Percent Auto18.320.5-60.0 %Monocytes Percent Auto9.31.7- 12.0 %Eosinophils Percent Auto1.70.9-7.0 %Basophils Percent Auto1.00.2-2.0 % Immature Granulocytes Pct Auto0.20.0-0.5 %Neutrophils Absolute Auto4.21.4-6.5 10 3/uLLymphocytes Absolute Auto1.11.2-3.8 10 3/uLMonocytes Absolute Auto0.60.3-0.8 10 3/uLEosinophils Absolute Auto0.10.0-0.7 10 3/uLBasophils Absolute Auto0.10.0- 0.1 10 3/uLImmature Granulocytes Abs Auto0.010.00-0.03 10 3/uLPerforming Lab:see noteML - [facility] LBFREE T3 Reviewed date:07/07/2025 11:58:07 AM Interpretation: Performing Lab: Notes/Report: [facility] ,Free T35.742.18-3.98 pg/mLPerforming Lab:see noteML - [facility] LB FREE T4 Reviewed date:07/07/2025 12:30:53 PM Interpretation: Performing Lab: Notes/Report: [facility] ,Free T41.030.76-1.46 ng/dLPerforming Lab:see noteML - [facility] LB PROF 14(COMP METB) Reviewed date:07/07/2025 11:58:07 AM Interpretation: Performing Lab: Notes/Report: [facility] ,Hputgm774408-848 mmol/LPotassium4.33.5-5.1 mmol/TKhebefnu76022-237 mmol/LCarbon Kpuvhzk64.621.0-32.0 mmol/LAnion Gap11.3Lemmduz87655-052 mg/dLBlood Urea Musmcxpn61.07.0-18.0 mg/dLCreatinine0.810.55-1.02 mg/dLEstimated GFR ( Kaleigh>60>=60 mL/min/1.73m 2Estimated GFR (Non- Lary>60>=60 mL/min/1.73m 2BUN Creatinine Ratio17.4Aobhvec5.78.5-10.1 mg/dLBilirubin Total0.60.2-1.0 mg/dL Aspartate Amino Wdbltjifbqs4391-83 U/LAlanine Lvnqibdnjtrawlgq0560-24 U/L Alkaline Hfdzmxbnnrf9963-561 U/LTotal Protein7.86.4-8.2 g/dLAlbumin Level3.93.4- 5.0 g/dLGlobulin3.9Albumin Globulin Ratio1.0Performing Lab:see noteML - [facility] LBTSH Reviewed date:07/07/2025 11:58:07 AM Interpretation: Performing Lab: Notes/Report: [facility] ,Thyroid Stimulating Hormone0.0300.358-3.740 uIU/mLPerforming Lab:see note - [facility] LBCA echo doppler complete Reviewed date:07/20/2025 12:46:51 PM Interpretation: Performing Lab: Notes/Report: Source Facility: [facility]-[address] [place] [address] Cardiology Report Signed Patient: BETTY CAMARENA MR#: [id number] : 1940 Acct:[id number] Age/Sex: 84 / F ADM Date: 07/19/25 Loc: CARD Attending Dr: Krunal Coates NP Ordering Physician: Krunal Coates NP Date of Service: 07/19/25 Procedure(s): CA echo doppler complete Accession Number(s): [id number] cc: Cam Chen M.D.; Krunal Coates NP Patient Name: BETTY CAMARENA MR#: [id number] : 1940 Exam Date: 07/19/2025 Ordering Doctor: [...] 09:34 Dictated By: DENISA KNAPP Signed By: 07/20/2536 DD/ 3 TD/TT: Mortgage Or Loan Underwriter:CHRISTINE T3 Reviewed date:07/24/2025 06:32:39 PM Interpretation: Performing Lab: Notes/Report: [facility] ,Free T32.852.18-3.98 pg/mLPerforming Lab:see noteML - [facility] LB T4 Reviewed date:07/24/2025 06:32:39 PM Interpretation: Performing Lab: Notes/Report: [facility] ,T4 Thyroxine6.704.80-13.90 ug/dLPerforming Lab:see noteML - [facility] LBTSH Reviewed date:07/24/2025 06:32:39 PM Interpretation: Performing Lab: Notes/Report: [facility] ,Thyroid Stimulating Hormone0.1030.358-3.740 uIU/mLPerforming Lab:see noteML - [facility] LBBNP Reviewed date:07/07/2025 11:58:07 AM Interpretation: Performing Lab: Notes/Report: [facility] ,NT Pro B Type Natriuretic Pcgn479.0<=1800.0 pg/mLPerforming Lab:see noteML - [facility] LBTSH Reviewed date:03/22/2025 12:57:29 PM Interpretation: Performing Lab: Notes/Report: [facility] ,Thyroid Stimulating Hormone0.0640.358-3.740 uIU/mLPerforming Lab:see noteML - [facility] LBT4 Reviewed date:03/22/2025 12:57:29 PM Interpretation: Performing Lab: Notes/Report: [facility] ,T4 Thyroxine5.004.80-13.90 ug/dLPerforming Lab:see noteML - [facility] LBPROF 14(COMP METB) Reviewed date:03/22/2025 12:57:29 PM Interpretation: Performing Lab: Notes/Report: [facility] ,Yhwprs172773-116 mmol/LPotassium4.63.5-5.1 mmol/BDrasxtsa89711-024 mmol/LCarbon Telpsbc87.521.0-32.0 mmol/LAnion Gap12.4Dlhtkgr9485-447 mg/dLBlood Urea Bgeajnxj19.07.0-18.0 mg/dLCreatinine0.960.55-1.02 mg/dLEstimated GFR ( Kaleigh>60>=60 mL/min/1.73m 2Estimated GFR (Non- Ame56>=60 mL/min/1.73m 2 BUN Creatinine Ratio22.2Uymkxlz0.38.5-10.1 mg/dLBilirubin Total0.50.2-1.0 mg/dL Aspartate Amino Yjmksrcrovi5591-60 U/LAlanine Swhzuygummcltnbd5231-25 U/L Alkaline Ouvyexmgmaj0974-206 U/LTotal Protein7.16.4-8.2 g/dLAlbumin Level4.03.4- 5.0 g/dLGlobulin3.1Albumin Globulin Ratio1.3Performing Lab:see noteML - [facility] LBLIPID PROFILE Reviewed date:03/22/2025 12:57:29 PM Interpretation: Performing Lab: Notes/Report: [facility] ,Wapscuuratjko588<=150 mg/nDHaacycfzosg971<=200 mg/dLHDL Zbpjfderrat2107-93 mg/dL > or =60 mg/dl - LOW CARDIOVASCULAR RISK <40 mg/dl - HIGH CARDIOVASCULAR RISK LDL Cholesterol Jwdsvtdqzg98.0 <100 mg/dl OPTIMAL 100-129 mg/dl NEAR OR ABOVE OPTIMAL 130-159 mg/dl BORDERLINE HIGH 160-189 mg/dl HIGH >190 mg/dl VERY HIGH VLDL UUWJUTIDOCX13.0Chol HDL Ratio2.5 3.3 - 4.4 LOW RISK 4.4 - 7.1 AVERAGE RISK 7.1 - 11.0 MODERATE RISK >11.0 HIGH RISK Performing Lab:see noteML - [facility] LBIRON Reviewed date:03/22/2025 12:57:29 PM Interpretation: Performing Lab: Notes/Report: [facility] ,Iron98.050.0-170.0 ug/dLPerforming Lab:see noteML - [facility] LB GLYCOHEMOGLOBIN A1C Reviewed date:03/22/2025 12:57:29 PM Interpretation: Performing Lab: Notes/Report: [facility] ,Glycohemoglobin A1C6.04.5-6.2 % ADA RECOMMENDED LIMIT 4.0 - 6.0 ADA THERAPEUTIC TARGET < 7.0 ACTION SUGGESTED > 7.0 Estimated Average Znbihti844Ahfvhzxchd Lab:see noteML - [facility] LB FREE T3 Reviewed date:03/22/2025 12:57:29 PM Interpretation: Performing Lab: Notes/Report: [facility] ,Free T32.612.18-3.98 pg/mLPerforming Lab:see noteML - [facility] LB CBC AUTO DIFF Reviewed date:03/22/2025 12:57:29 PM Interpretation: Performing Lab: Notes/Report: [facility] ,White Blood Count5.24.0-11.0 10 3/uLRed Blood Count4.294.20-5.40 10 6/uL Ksvupgyaqx32.112.0-16.0 g/lYYwncavksnb30.336.0-48.0 %Mean Corpuscular Tsvojo74.9 81.0-99.0 fLMean Corpuscular Eyfusjtccc06.526.7-34.0 pgMean Corpuscular HGB Conc 32.529.9-35.2 g/dLRed Cell Distribution Width13.411.0-15.0 %Platelet Oiwoq898 150-450 10 3/uLMean Platelet Mqmqlu86.79.5-13.5 fLNeutrophils Percent Auto51.9 43.0-75.0 %Lymphocytes Percent Auto35.320.5-60.0 %Monocytes Percent Auto9.71.7- 12.0 %Eosinophils Percent Auto1.70.9-7.0 %Basophils Percent Auto1.20.2-2.0 % Immature Granulocytes Pct Auto0.20.0-0.5 %Neutrophils Absolute Auto2.71.4-6.5 10 3/uLLymphocytes Absolute Auto1.81.2-3.8 10 3/uLMonocytes Absolute Auto0.50.3- 0.8 10 3/uLEosinophils Absolute Auto0.10.0-0.7 10 3/uLBasophils Absolute Auto0.1 0.0-0.1 10 3/uLImmature Granulocytes Abs Auto0.010.00-0.03 10 3/uLPerforming Lab:see noteML - [facility] LBUA RANDOM W or MICROSCOPIC Reviewed date:01/26/2025 09:08:54 PM Interpretation: Performing Lab: Notes/Report: [facility] ,Color UrineLT. YELLOWYELLOWClarity UrineCLEARCLEARSpecific [place] Urine1.025 1.005-1.025pH Urine5.55.0-9.0Protein UrineTRACENEG/TRACE mg/dLGlucose Urine UA NEGATIVENEGATIVE mg/dLBilirubin UrineNEGATIVENEGATIVEKetones UrineNEGATIVE NEGATIVE mg/dLBlood UrineLARGENEGATIVENitrite UrineNEGATIVENEGATIVEUrobilinogen Urine0.20.2-1.0 EU/dLLeukocyte Esterase UrineNEGATIVENEGATIVEWBC UrineNONE SEEN NONE SEEN #/HPFRBC Zyezy4-678-2 #/HPFBacteria UrineNONE SEENNONE SEEN #/HPFMucus UrineNONE SEENNONE SEENSquamous Epithelial Cell UrineRARENONE/RARE #/LPF Crystals Seen?SeenNone Seen #/HPFAmorphous Sediment UrineFEWCast Seen?NONE SEEN NONE SEEN #/LPFYeast UrineSEENNONE SEENUrine Culture IndicatedNOPerforming Lab: see note - [facility] LBPROF 14(COMP METB) Reviewed date:01/26/2025 09:08:54 PM Interpretation: Performing Lab: Notes/Report: [facility] ,Gwayxe586650-830 mmol/LPotassium3.63.5-5.1 mmol/SXnevcfys07757-953 mmol/LCarbon Gejuqku18.021.0-32.0 mmol/LAnion Gap13.0Nevlkgh38702-999 mg/dLBlood Urea Ozjhcaih50.07.0-18.0 mg/dLCreatinine1.080.55-1.02 mg/dLEstimated GFR ( Cfikxtb71>=60 mL/min/1.73m 2Estimated GFR (Non- Ame49>=60 mL/min/1.73m 2 BUN Creatinine Ratio24.2Chxgjhb7.18.5-10.1 mg/dLBilirubin Total0.40.2-1.0 mg/dL Aspartate Amino Prrpxrdsopr2212-00 U/LAlanine Yyqeaeopydllgxyh0616-52 U/L Alkaline Qwxfgtzptxb3063-512 U/LTotal Protein7.06.4-8.2 g/dLAlbumin Level3.93.4- 5.0 g/dLGlobulin3.1Albumin Globulin Ratio1.3Performing Lab:see noteML - [facility] LBCBC AUTO DIFF Reviewed date:01/26/2025 09:08:54 PM Interpretation: Performing Lab: Notes/Report: [facility] ,White Blood Count6.44.0-11.0 10 3/uLRed Blood Count4.134.20-5.40 10 6/uL Sdaoqycsxc44.612.0-16.0 g/tZQfiqabaftd37.636.0-48.0 %Mean Corpuscular Ayzkrg12.5 81.0-99.0 fLMean Corpuscular Wqnwcyzkbe80.526.7-34.0 pgMean Corpuscular HGB Conc 32.629.9-35.2 g/dLRed Cell Distribution Width14.011.0-15.0 %Platelet Dujfu417 150-450 10 3/uLMean Platelet Xurevs11.89.5-13.5 fLNeutrophils Percent Auto50.5 43.0-75.0 %Lymphocytes Percent Auto38.720.5-60.0 %Monocytes Percent Auto8.11.7- 12.0 %Eosinophils Percent Auto1.70.9-7.0 %Basophils Percent Auto0.80.2-2.0 % Immature Granulocytes Pct Auto0.20.0-0.5 %Neutrophils Absolute Auto3.31.4-6.5 10 3/uLLymphocytes Absolute Auto2.51.2-3.8 10 3/uLMonocytes Absolute Auto0.50.3- 0.8 10 3/uLEosinophils Absolute Auto0.10.0-0.7 10 3/uLBasophils Absolute Auto0.1 0.0-0.1 10 3/uLImmature Granulocytes Abs Auto0.010.00-0.03 10 3/uLPerforming Lab:see noteML - [facility] LBXR chest 2V Reviewed date:12/09/2024 12:51:47 PM Interpretation: Performing Lab: Notes/Report: Source Facility: [place] [address] XRay Report Signed Patient: BETTY CAMARENA MR#: [id number] : 1940 Acct:[id number] Age/Sex: 84 / F ADM Date: 12/09/24 Loc: ER Attending Dr: Ordering Physician: Perry Skinner Date of Service: 12/09/24 Procedure(s): XR chest 2V Accession Number(s): [id number] cc: Cam Chen M.D.; Perry Skinner [place] [address] Patient Name: BETTY CAMARENA MRN: [id number] date: 1940 Sex: F Assigned Patient Location: ER Current Patient Location: ER Accession/Order Number: [id number] Exam Date: 12/09/2024 11:23 Report Date: 12/09/2024 [...] Johana Dorantes M.D.12/09/2024 11:27 AM Dictation Location: [place] [address] Electronically authenticated by: [id number] Y Date: 12/09/2024 11:27 Dictated By: Johana Dorantes M.D. Signed By: 12/09/24 1129 DD/ 1127 TD/TT: Mortgage Or Loan Underwriter:ECG 12 lead Reviewed date:12/11/2024 12:51:16 PM Interpretation: Performing Lab: Notes/Report: Source Facility: [place] [address] Electrocardiograph Report Signed Patient: BETTY CAMARENA MR#: [id number] : 1940 Acct:[id number] Age/Sex: 84 / F ADM Date: 12/09/24 Loc: ER Attending Dr: Ordering Physician: Perry Skinner Date of Service: 12/09/24 Procedure(s): ECG 12 lead Accession Number(s): [id number] cc: [facility] Test Date: 2024-12-09 Pat Name: BETTY CAMARENA Department: Room: - Gender: Female [employer] Furniture: : 1940 Requested By: CAM CHEN Order Number: [id number] Reading MD: CAM CHEN Measurements Intervals [place] Rate: 76 P: 52 [place]: 156 QRS: -3 QRSD: 82 T: 65 QT: 384 QTc: 414 Interpretive Statements 1100 Sinus rhythm 9110 normal ECG Compared to ECG 01/13/2024 15:48:59 No significant changes Electronically Signed On 12-11-2024 6:09:49 EST by CAM CHEN Dictated By: Cam Chen M.D. Signed By: 12/11/24 0609 DD/ 1024 TD/TT: Mortgage Or Loan Underwriter:Troponin I High Sensitivity Reviewed date:12/09/2024 12:51:47 PM Interpretation: Performing Lab: Notes/Report: [facility] ,Troponin I High Sensitivity6.44.0-51.3 pg/mL CUT-OFF POINTS HAVE BEEN ESTABLISHED BASED ON THE FOURTH UNIVERSAL DEFINITION OF MYOCARDIAL INFARCTION. THE UPPER REFERENCE LIMIT (URL) OF TROPONIN, DEFINED THE 99TH PERCENTILE OF cTnI DISTRIBUTION IN A REFERENCE POPULATION, HAS BEEN CONFIRMED THE DECISION THRESHOLD FOR IN DIAGNOSIS. 99TH PERCENTILE = 51.4 PG/ML NOTE: HIGH-SENSITIVITY TROPONIN ASSAY IS NOT INTENDED TO BE USED IN ISOLATION BUT SHOULD BE INTERPRETED IN CONJUNCTION WITH OTHER DIAGNOSTIC AND CLINICAL INFORMATION. Performing Lab:see noteML - [facility] LBProthrombin Time INR Reviewed date:12/09/2024 12:51:47 PM Interpretation: Performing Lab: Notes/Report: [facility] ,Prothrombin Time11.19.0-11.6 secINR1.05 DESIRED INR: 2.0-3.0 CONDITIONS NOT LISTED BELOW 2.5-3.5 FOR PROSTHETIC HEART VALVE REPLACEMENT 2.5-3.5 RECURRENT THROMBOSIS Performing Lab:see noteML - [facility] LBPROF 14(COMP METB) Reviewed date:12/09/2024 12:51:47 PM Interpretation: Performing Lab: Notes/Report: [facility] ,Frayck141738-468 mmol/LPotassium3.53.5-5.1 mmol/JKcjvsmzs25636-275 mmol/LCarbon Owpchyo93.221.0-32.0 mmol/LAnion Gap12.4Wqhpmoc98973-494 mg/dLBlood Urea Cibhdzho71.07.0-18.0 mg/dLCreatinine0.910.55-1.02 mg/dLEstimated GFR ( Kaleigh>60>=60 mL/min/1.73m 2Estimated GFR (Non- Ame59>=60 mL/min/1.73m 2 BUN Creatinine Ratio16.1Glsjnck3.58.5-10.1 mg/dLBilirubin Total0.60.2-1.0 mg/dL Aspartate Amino Crdaeovxafn1467-25 U/LAlanine Xjcnoiocapenfeow0543-76 U/L Alkaline Aduclkxwogk2494-347 U/LTotal Protein7.26.4-8.2 g/dLAlbumin Level4.03.4- 5.0 g/dLGlobulin3.2Albumin Globulin Ratio1.3Performing Lab:see noteML - [facility] LBCBC AUTO DIFF Reviewed date:12/09/2024 12:51:47 PM Interpretation: Performing Lab: Notes/Report: [facility] ,White Blood Count5.54.0-11.0 10 3/uLRed Blood Count4.504.20-5.40 10 6/uL Nfgiwuhufo42.512.0-16.0 g/eEMakqarscyp84.436.0-48.0 %Mean Corpuscular Twtldq04.0 81.0-99.0 fLMean Corpuscular Sioljkwbuv92.026.7-34.0 pgMean Corpuscular HGB Conc 32.629.9-35.2 g/dLRed Cell Distribution Width14.111.0-15.0 %Platelet Mzpor884 150-450 10 3/uLMean Platelet Iwiqrz23.49.5-13.5 fLNeutrophils Percent Auto47.5 43.0-75.0 %Lymphocytes Percent Auto38.420.5-60.0 %Monocytes Percent Auto10.11.7- 12.0 %Eosinophils Percent Auto2.50.9-7.0 %Basophils Percent Auto1.10.2-2.0 % Immature Granulocytes Pct Auto0.40.0-0.5 %Neutrophils Absolute Auto2.61.4-6.5 10 3/uLLymphocytes Absolute Auto2.11.2-3.8 10 3/uLMonocytes Absolute Auto0.60.3- 0.8 10 3/uLEosinophils Absolute Auto0.10.0-0.7 10 3/uLBasophils Absolute Auto0.1 0.0-0.1 10 3/uLImmature Granulocytes Abs Auto0.020.00-0.03 10 3/uLPerforming Lab:see [facility]:12/09/2024 12:51:47 PM Interpretation: Performing Lab: Notes/Report: [facility] ,NT Pro B Type Natriuretic Pept82.0<=1800.0 pg/mLPerforming Lab:see note - [facility] Reviewed date:03/22/2025 12:57:29 PM Interpretation: Performing Lab: Notes/Report: [facility] ,NT Pro B Type Natriuretic Edbz235.0<=1800.0 pg/mLPerforming Lab:see note - [facility] Reason For Referral No Information Medications Medication SIG (Take, Route, Frequency, Duration) Notes Start Date End Date Status Eliquis 5 MG TAKE ONE TABLET BY MOUTH TWICE A DAY; Duration: 90 days ActiveSpironolactone 25 MGTAKE 0.5 TABLETS (12.5 MG) BY MOUTH IN THE MORNING. Oral; Duration: 90 daysActiveLosartan Potassium 50 MG1 tablet Orally Once a day; Duration: 90 daysActiveErgocalciferol 1.25 MG (34408 UT)1 capsule Orally daily; Duration: 90 days5ActiveMetoprolol Succinate ER 50 MG2 tabs in AM and 1 tab at HS Orally daily; Duration: 90 daysActiveAtorvastatin Calcium 10 mgTAKE ONE TABLET BY MOUTH ONCE DAILY; Duration: 90 daysActiveLiothyronine Sodium 25 MCGTAKE 1/2 TABLET BY MOUTH DAILY ON AN EMPTY STOMACH; Duration: 90 daysActive Isosorbide Mononitrate ER 60 MG1 tablet in the morning Orally bid; Duration: 90 daysActiveLevothyroxine Sodium 75 MCGTAKE ONE TABLET BY MOUTH ONCE DAILY IN THE MORNING ON AN EMPTY STOMACH; Duration: 90 daysActive Social History Tobacco Use: Social History Observation Description Date Details (start date - stop date) Former Smoker 03/12/1960 - 03/12/2005 Tobacco Control (Standard) Question Answer Notes Tobacco use: Former smoker When did you start smoking?03/12/1960When did you stop smoking?03/12/2005How long has it been since you last smoked?5-10 yearsAUDIT-C (Standard) Question Answer Notes Did you have a drink containing alcohol in the p ast year? No Zavoyz5HaggrshvqbozrnMtnndxdz Problems Problem Type SNOMED Code ICD Code Onset Dates Problem Status W/U Status Risk Notes Problem Lumbar radiculopathy (794627740) Radiculo aubrey, lumbar region (M54.16) ActiveconfirmedProblemPalpitations (57268155)Palpitations (R00.2)Activeconfirmed ProblemChest pain (67271736)Chest pain (R07.9)ActiveconfirmedProblem Hyperlipidemia (39339047)Hyperlipidemia (E78.5)ActiveconfirmedProblem Hypertension (78935691)Hypertension (I10)ActiveconfirmedProblemOsteoarthritis (913107551)Osteoarthritis (M19.90)ActiveconfirmedProblemHypothyroidism (53273136)Hypothyroidism (E03.9)ActiveconfirmedProblemAtrial fibrillation (disorder) (71507832)Afib (I48.91)ActiveconfirmedProblemAtrial fibrillation (51788597)AF (paroxysmal atrial fibrillation) (I48.0)ActiveconfirmedProblem Coronary artery disease (45608964)CAD (coronary artery disease) (I25.10)Active confirmedProblemCarotid artery disease (954802744)Carotid artery disease (I77.9) ActiveconfirmedProblemDiastolic heart failure (642290543)Diastolic heart failure (I50.30)ActiveconfirmedProblemPeripheral neuropathy (474467805)Peripheral neuropathy (G62.9)ActiveconfirmedProblemOsteopenia (548897502)Osteopenia (M85.80)ActiveconfirmedProblemCarotid artery stenosis (20370813)Carotid artery stenosis (I65.29)ActiveconfirmedProblemDyspnea (558230938)Dyspnea (R06.00)Active confirmedProblemCoronary atherosclerosis (836220740)Coronary atherosclerosis (I25.10)ActiveconfirmedProblemMigraine (52879981)Migraine (G43.909)Active confirmedProblemHypertriglyceridemia (494163986)Hypertriglyceridemia (E78.1) ActiveconfirmedProblemMurmur (346851383)Murmur (R01.1)ActiveconfirmedProblemIron deficiency anemia (44444241)Iron deficiency anemia (D50.9)Activeconfirmed ProblemDiverticulitis (94217976)Diverticulitis (K57.92)ActiveconfirmedProblem Near syncope (869368684)Near syncope (R55)ActiveconfirmedProblemMitral insufficiency (59307522)Mitral insufficiency (I34.0)ActiveconfirmedProblem Vitamin D deficiency (82964854)Low vitamin D level (E55.9)ActiveconfirmedProblem Overweight (953816870)Over weight (E66.3)ActiveconfirmedProblemParoxysmal supraventricular tachycardia (74957416)Atrial tachycardia, paroxysmal (I47.1) ActiveconfirmedProblemFibrocystic breast changes (16955283)Fibrocystic breast disease (N60.19)ActiveconfirmedProblemMass of neck (973857200)Mass in neck (R22.1)ActiveconfirmedProblemMenopause ovarian failure (962692906)Menopause ovarian failure (E28.39)ActiveconfirmedProblemAtrial fibrillation (46111212) Paroxysmal atrial fibrillation with RVR (I48.0)ActiveconfirmedProblemArthralgia of 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)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)Activeconfirmed 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)Activeconfirmed Vital Signs Blood pressure diastolic 90 mm Hg 03/21/2025 Azexew84 in03/21/2025lood pressure mm Hg03/21/20257210Uxmyba985.6 lbs 03/21/2025BMI33.24 kg/m203/21/2025 Encounters Encounter Location Date Provider Diagnosis [facility] [address] [place] [address] 03/21/2025 Malvin Hoy Palpitations R00.2 ; Dyspnea R06.00 ; AF (paroxysmal atrial fibrillation) I48.0 ; Hypertension I10 ; CAD (coronary artery disease) I25.10 ; Hyperlipidemia E78.5 and Hypothyroidism E03.9 [facility] [address] [place] [facility] [place] [address] 01/23/2025 Malvin Hoy [facility] [facility] [place] [address] 02/21/2025[facility] [place] [facility] [place] [address]/08/2025Doug HoyMenopause ovarian failure E28.39[facility] [place] [facility] [place] [address]/07/2025Doug Hoy [facility] [place] [facility] [place] [address] 07/07/2025Doug HoyHyperthyroidism E05.90[facility] [facility] [place] [address]/[facility] [place] [facility] [place] [address]/Doug Hoy Assessments Encounter Date Diagnosis (ICD Code) Assessment Notes Treatment Notes Treatment Clinical Notes Section Notes 03/21/2025 Palpitations (ICD-10 - R00.2) 03/21/2025Dyspnea (ICD-10 - R06.00)03/22/2025Menopause ovarian failure (ICD-10 - E28.39)07/07/2025Hyperthyroidism (ICD-10 - E05.90)03/21/2025F (paroxysmal atrial fibrillation) (ICD-10 - I48.0)03/21/2025Hypertension (ICD-10 - I10) 03/21/2025AD (coronary artery disease) (ICD-10 - I25.10)03/21/2025 Hyperlipidemia (ICD-10 - E78.5)03/21/2025Hypothyroidism (ICD-10 - E03.9) Plan Of Treatment Pending [...] End Date MEDICARE [place] [address] [place] [address] [id number] Eriberto Camarena - patient is the /01/2023[employer] SUPP[employer]MENT INSURANCE [address] [place] [id number], SandraSelf - patient is the insured Medical (General) [...]
--- OUTSIDE RECORDS SUMMARY | 2025-08-02 07:58 | XMS_ITS | Clinical Summary ---
Author Organization [facility] Address [address] [place] [address] Care Team Providers Care [employer] Name Role Phone Norris Bates MD Primary Care Provider [phone] Allergies Active AllergyReactionsCriticalityNoted DateCommentsDigoxinNausea OnlyLow 12/24/2022 HIVES (SMALLER) FzyjuigzfSkqnsXue12/28/2023 Per patient / PCP HIVES (SMALLER) Medications MedicationSigDispense QuantityRefillsLast FilledStart DateEnd DateStatus ergocalciferol (Vitamin D-2) 1.25 MG (46045 Units) capsule Vitamin DActive apixaban (Eliquis) 5 mg tablet Eliquis 5 mg tablet TAKE 1 TABLET BY MOUTH TWICE A DAYActive atorvastatin (Lipitor) 10 mg tablet atorvastatin 10 mg tablet TAKE 1 TABLET BY MOUTH ONCE A DAY07/16/2020Active isosorbide mononitrate ER (Imdur) 60 mg 24 hr tablet isosorbide mononitrate ER 60 mg tablet,extended release 24 hr TAKE 1 TABLET BY MOUTH TWICE A DAYActive levothyroxine (Synthroid, Levoxyl) 88 mcg tablet Take 800 mcg by mouth in the morning.12/17/2022ctive liothyronine (Cytomel) 5 mcg tablet Take 3 tablets by mouth in the morning.01/16/2023ctive furosemide (Lasix) 20 mg tablet Indications:Chronic heart failure with preserved ejection fraction (CMS/HCC)Take 1 tablet (20 mg) by mouth if needed each day (leg swelling). 30 tablet 4Active Additional Information Patient not taking.Reported on 07/24/2025 metoprolol succinate XL (Toprol-XL) 100 mg 24 hr tablet Indications:Benign hypertensive heart disease with heart failure (CMS/HCC)Take 1 tablet (100 mg) by mouth in the morning. Do not crush or chew. 90 tablet 3044Active Additional Information Patient not taking.Reported on 07/24/2025 metoprolol succinate XL (Toprol-XL) 50 mg 24 hr tablet Indications:PalpitationsTAKE TWO TABLETS BY MOUTH IN THE MORNING AND ONE TABLET DAILY IN THE EVENING DO NOT CRUSH OR CHEW. 90 tablet 302/5Active Additional Information Patient taking differently: 50 mg oral 2 times daily, TAKE TWO TABLETS BY MOUTH IN THE MORNING AND ONE TABLET DAILY IN THE EVENING DO NOT CRUSH OR CHEW., Reported on 07/24/2025 spironolactone (Aldactone) 25 mg tablet Indications:Benign essential HTN,Chronic diastolic heart failure, NYHA class 2 (CMS/HCC)Take 0.5 tablets (12.5 mg) by mouth in the morning. 45 tablet 305/322567/6Active losartan (Cozaar) 100 mg tablet Indications:Primary hypertensionTake 1 tablet (100 mg) by mouth in the morning. 90 tablet 307/927020/6Active Active Problems ProblemNoted DateDiagnosed DatePersistent atrial kmhgqapxlqgv63/18/2023 Overview (01/27/2023): Added automatically from request for surgery [id number] Paroxysmal atrial anfwkvsturwp84/18/2023 Overview (02/12/2023): Added automatically from request for surgery [id number] Coronary artery disease involving [place] coronary artery of [place]ak heart without angina /15/2023 Assessment & Plan (12/24/2022 11:09 AM EDT): Coronary artery disease is Stable without any acute concerns or symptoms current Continue goal-directed medical therapy with metoprolol, atorvastatin continue risk factor modifications- heart healthy diet, regular exercise as tolerated and continue all medications. Chronic diastolic heart failure, NYHA class Assessment & Plan (12/24/2022 11:08 AM EDT): NYHC II Mild edema no worse than usual we will start spironolactone for uncontrolled hypertension and this will help with her edema management Renal function normal we will repeat BMP next week Bilateral carotid artery nmnfoztx91/15/2023 Assessment & Plan (12/24/2022 11:09 AM EDT): Lipid levels well controlled continue atorvastatin 10 mg and she is on Eliquis anticoagulation therefore no ASA Concerning symptoms, We will repeat imaging for Summer Benign essential HTN12/24/2022 Assessment & Plan (12/24/2022 11:02 AM EDT): Hypertension is Controlled she is taking Toprol 100 mg twice daily per PCP recommendations. She had stopped clonidine related to dry mouth and side effects States at home blood pressures typically 160s 170s over 80s We will add spironolactone 12.5 mg daily repeat BMP in 1 week to check renal function and potassiumlevel Carolyn with patient to call office for any concerns or side effects including lightheadedness, dizziness, dry mouth. Ledrgbj7104/11/2020 Encounters DateTypeDepartmentCare InumSdmygijgjcj33/13/2025 3:[address] [address] [place] [address] Krunal Kevin CNP Primary hypertension (Primary Dx); Palpitations; Coronary artery disease involving [place] coronary artery of [place] heart without angina pectoris; Paroxysmal atrial fibrillation (CMS/HCC); Benign hypertensive heart disease with heart failure (CMS/HCC); Chronic diastolic congestive heart failure (CMS/HCC); Bilateral carotid artery stenosis; Mixed rseonerdjsysapjxk80/26/2025 10:[address] [facility] [address] [place] [address] Krunal Kevin CNP Palpitations (Primary Dx); Coronary artery disease involving ani[place] coronary artery of [place] heart without angina pectoris; Paroxysmal atrial fibrillation (CMS/HCC); Benign hypertensive heart disease with heart failure (CMS/HCC); Bilateral carotid artery stenosis; Mixed navrwscjdgqubbqeq11/26/2025Telephone [facility] [address] [place] [address] Stella Veloz MA 05/29/2025Telephone [facility] [address] [place] [phone] Maggi Cuevas MA 05/02/2025Refill [facility] [address] [place] [phone] Selena Montiel MA Primary hypertensionfrom Last 3 Months Immunizations ImmunizationAdministration DatesNext DueInfluenza, High-dose Seasonal, Quadrivalent, Preservative Free09/27/2021Influenza, Knfwsyrgvpp97/18/2021 Influenza, injectable, quadrivalent, preservative free07/28/2019Influenza, trivalent, itdtqwzohz99/06/2020Pfizer SARS-CoV-2 Txlfrrzujbj19/22/2022, 07/06/2021,12/10/2020,11/19/2020Unspecified Sars-Cov-2 Qwayxfcdsxt62/21/2021, 06/24/2021 Family History RelationNameStatusCommentsFatherDeceasedMotherDeceased Social History Tobacco UseTypesPacks/DayYears UsedDateSmoking Tobacco: FormerCigarettes0.540 1964 - 2004Smokeless Tobacco: Never Tobacco Cessation:Counseling Given: Not Answered Alcohol UseStandard Drinks/WeekCommentsNot Currently0 (1 standard drink = 0.6 oz pure alcohol)holidayUT Safety & EnvironmentAnswerDate RecordedFear of Current or Ex-PartnerNot on file12/03/2023Emotionally AbusedNot on file12/03/2023hysically AbusedNot on file12/03/2023Sexually AbusedNot on file12/03/2023hysically or Sexually AbusedNot on file12/03/2023CommentsNoSex and Gender Information ValueDate RecordedSex Assigned at ZugkzWzrjee66/26/2025 10:00 AM EDTLegal Sex Xjzjec8104/10/2022 12:01 AM EDTGender RidrtatgHbnimb00/26/2025 10:00 AM EDTSexual OrientationHeterosexual or Rmsdjzlj51/26/2025 10:00 AM EDT Last Filed Vital Signs Vital SignReadingTime TakenCommentsBlood Vrkucttg764/6710 3:05 PM EDT Hwzqr8840 3:05 PM SQNJareqxmqjye50.2 ??C (97.2 ??F)04/23/2023 11:32 AM EDTRespiratory Gdtl2712 1:55 PM EDTOxygen Inpnwboyak79%07/24/2025 3:05 PM EDTInhaled Oxygen Concentration--Ssgdvw91 kg (161 lb)07/24/2025 3:05 PM EDT Fgpprj324.9 cm (4' 11 )07/24/2025 3:05 PM EDTBody Mass Index32.5207/24/2025 3:05 PM EDT Plan of Treatment Health MaintenanceDue DateLast DoneCommentsMedicare Annual Wellness (AWV) 3Depression Uwrflodnc24[birth year]04/1953Pneumococcal Vaccine: 50+ Years (1 of 2 - PCV)2Adult Qohsgph2110/15/1964Zoster Vaccines (1 of 2)1992Fall Risk Rjgenanmf23/04/2008COVID-19 Vaccine ( season)2025 08/06/2024, 03/02/2022, 03/02/2022, Additional history existsInfluenza Vaccine (#1)51, 09/16/2023, 09/27/2021, Additional history existsHIB VaccinesAged OutNo longer eligible based on patient's age to complete this topic HPV VaccinesAged OutNo longer eligible based on patient's age to complete this topicIPV VaccinesAged OutNo longer eligible based on patient's age to complete this topicMeningococcal B VaccineAged OutNo longer eligible based on patient's age to complete this topicMeningococcal VaccineAged OutNo longer eligible based on patient's age to complete this topicRotavirus VaccinesAged OutNo longer eligible based on patient's age to complete this topic Procedures Procedure NamePriorityDate/TimeAssociated DiagnosisCommentsECG 12 LEAD UNIT RHVGQVJALVdsdasv25/26/2025 10:06 AM EDT Paroxysmal atrial fibrillation (CMS/HCC) from Last 3 Months Results * ECG 12 lead unit performed (07/07/2025 10:06 AM EDT)Specimen (Source) Anatomical Location / LateralityCollection Method / VolumeCollection Time Received Time Narrative Authorizing ProviderResult TypeResult StatusAdam Dorita CNPECG ORDERABLESFinal Result from Last 3 Months Insurance Advance Directives * Full Code (Latest Code Status on File) Date ActivatedDate InactivatedComments04/23/2023 4:04 PM01/28/2024 4:24 PM Care Teams Team MemberRelationshipSpecialtyStart DateEnd Date Norris Bates MD [address] [facility] [address] [place] [address] PCP - General12/24/22
--- OUTSIDE RECORDS SUMMARY | 2025-08-02 08:01 | XMS_ITS | CCD ---
Author Organization [facility] CliniSytn Care Team Providers Care Day Worker Name Role Phone UNKNOWN, PROVIDER Admitting Unavailable UNKNOWN, PROVIDER Attending Unavailable SELF, REFERRED Referring Unavailable CAM CHEN Primary Care Unavailable DENISSE, DR GLORIA Bonilla [...] HOY ., DR LEVY Primary Care Unavailable NIOCLE CLINE Consulting Unavailable Johan Goode Consulting Unavailable TIBURCIO .RICARDO Attending Unavailable TIBURCIO ., RICARDO Admitting Unavailable HOY ., DR LEVY Primary Care Unavailable Mckinley Valderrama Consulting Unavailable ALEJANDRO BLACKMAN Consulting Unavailable TIBURCIO ., RICARDO Consulting Unavailable HOY ., DR LEVY Consulting Unavailable HOY ., DR LEVY Attending Unavailable HOY ., DR LEVY Admitting Unavailable HOY ., DR LEVY Primary Care Unavailable KAI, DR JEANINE Lambert Consulting Unavailabl e Johan Goode Consulting Unavailable MOUKARBEL, DR CRAWLEY Consulting Unavailable MARKER ., DR UGARTE Consulting Unavailable LEANNA VIVAS Consulting Unavailable KRUNAL COATES Attending Unavailable KRUNAL COATES Attending Unavailable DENISA KNAPP Attending Unavailable Allergies Allergy ClassificationReported Allergen(s)Allergy TypeDate of OnsetReaction(s) Facility (2 sources)dilTIAZem; Translations: [DILTIAZEM]Drug Zqeitup18-51-5777BcfC[facility] Repository (1 source)Digoxin; Translations: [DIGOXIN]Drug Ulypokf77-38-9258XunwsomhvfProMedica [facility]ost[facility] Repository Problems Active Problems Problem ClassificationProblemDateDocumented DateEpisodic/ChronicCardiac dysrhythmias (8 sources)Unspecified atrial fibrillation; Translations: [Paroxysmal atrial fibrillation]Onset: 59-14-3579KhicespPkwvumt dysrhythmias (6 sources)Palpitations; Translations: [Bradycardia, unspecified]Onset: 44-18-1674MblkodyuUlrmrptohs associated with dizziness or vertigo (5 sources)Dizziness and giddiness; Translations: [DIZZINESS AND GIDDINESS] Onset: 16-27-4964LziuixhhXqsavwdsrt heart failure; nonhypertensive (4 sources)Chronic diastolic (congestive) heart failure; Translations: [Unspecified diastolic (congestive) heart failure]Onset: 71-20-5882Kkgxlwe Coronary atherosclerosis and other heart disease (3 sources)Atherosclerotic heart disease of [place] coronary artery without angina pectoris; Translations: [ASHD WAINWRIGHT CA W/O ANGINA PECTORIS]Onset: 62-04-2404WbnvbrbGfcbuzpvbz and other anemia (1 source)Iron deficiency anemia, unspecified; Translations: [IRON DEFICIENCY ANEMIA UNSPECIFIED]Onset: 80-70-2077ZhbngfhbFbioixenu of lipid metabolism (5 sources)Pure hypercholesterolemia, unspecified; Translations: [Hyperlipidemia, unspecified]Onset: 35-41-3384CxwmopuWwmkvpcsyl disorders (1 source)Gastro-esophageal reflux disease without esophagitis; Translations: [GERD WITHOUT ESOPHAGITIS]Onset: 02-99-9184DdkbixhEfqtiqong hypertension (7 sources)Essential (primary) hypertension; Translations: [ESSENTIAL PRIMARY HYPERTENSION]Onset: 69-82-2554EkxzbyuGpunw and electrolyte disorders (2 sources)Dehydration; Translations: [Hypo-osmolality and hyponatremia]Onset: 48-12-5003HcztubemOnytvhkp; including migraine (4 sources)Headache; including migraine; Translations: [HEADACHE UNSPECIFIED] Onset: 84-65-7502Ibywtgpptzsu with complications and secondary hypertension (6 sources)Hypertensive heart disease with heart failure; Translations: [HTN HEART DISEASE W/HEART FAIL]Onset: 94-84-1027CprdgurTghplqdfhj disorders (1 source)Hormone replacement therapy; Translations: [HORMONE REPLACEMENT THERAPY]Onset: 81-27-8188BoemtcrrUtbofqwkbkt deficiencies (1 source)Vitamin D deficiency, unspecified; Translations: [VITAMIN D DEFICIENCY UNSPECIFIED]Onset: 73-06-3045DvnpnttXyypofpuh or stenosis of precerebral arteries (3 sources)Occlusion and stenosis of right carotid artery; Translations: [Occlusion and stenosis of bilateral carotid arteries]Onset: 31-68-0439Qeszgtw Other aftercare (1 source)Other long term care administrator (current) drug therapy; Translations: [OTH RESIDENTIAL CURRENT DRUG THERAPY]Onset: 54-74-2825UldojqetSmhls aftercare (1 source)director long term care (current) use of anticoagulants; Translations: [PROJECT COORDINATOR RN CURRNT USE ANTICOAGULANTS]Onset: 03-27-3848KsdsbtjpGrmbh lower respiratory disease (1 source)Shortness of breath; Translations: [SHORTNESS OF BREATH]Onset: 71-09-6674MsgsgaeqKvxprehm codes; unclassified (1 source)Acquired absence of both cervix and uterus; 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]Onset: 15-72-2922KfdhrfbhAkqhyhqdo and history of mental health and substance abuse codes (1 source)Personal history of nicotine dependence; Translations: [PERSONAL HISTORY OF NICOTINE DEPEND]Onset: 13-66-1835FhljnxqkYerwiqxtyxv; intervertebral disc disorders; other back problems (4 sources)Radiculopathy, lumbar region; Translations: [RADICULOPATHY LUMBAR REGION]Onset: 35-74-0549OszfyykvYiycerg disorders (1 source)Hypothyroidism, unspecified; Translations: [HYPOTHYROIDISM UNSPECIFIED]Onset: 55-57-2748AuhsgbmYrjakygbounx (1 source)CONTACT W/AND (SUSP) EXPOS COVID-19; Translations: [CONTACT W/AND (SUSP) EXPOS COVID-19]Onset: 01-13-2023 Past or Other Problems Problem ClassificationProblemDateDocumented DateEpisodic/ChronicDeficiency and other anemia (1 source)Anemia, unspecified; Translations: [ANEMIA UNSPECIFIED]Onset: 25-56-9121AslublwsBnnkiveu mellitus without complication (1 source)Other abnormal glucose; Translations: [OTHER ABNORMAL GLUCOSE]Onset: 68-13-9767FsyoyqajUiyligfwfymqi symptoms and ill-defined conditions (1 source)Personal history of urinary (tract) infections; Translations: [PERS HX URINARY TRACT INFECTIONS]Onset: 96-64-8933FprmeegqUlyjnvk and fatigue (1 source)Weakness; Translations: [WEAKNESS]Onset: 55-59-3730MsolixaoOfvmlkizcgi chest pain (1 source)Chest pain, unspecified; Translations: [CHEST PAIN UNSPECIFIED]Onset: 21-48-2433RvturkmeMkjbr aftercare (1 source)director long term care (current) use of oral hypoglycemic drugs; Translations: [PROJECT COORDINATOR RN USE ORAL HYPOGLYCEMIC DX]Onset: 72-85-0449MbdcogqxLjhrp aftercare (1 source)FPC (current) use of aspirin; Translations: [RESIDENTIAL CURRENT USE OF ASPIRIN]Onset: 83-20-6094DudemrofQaxbe lower respiratory disease (1 source)Acute respiratory distress; Translations: [ACUTE RESPIRATORY DISTRESS] Onset: 86-25-8612WjgrljorHazmq lower respiratory disease (1 source)Dyspnea, unspecified; Translations: [DYSPNEA UNSPECIFIED]Onset: 97-84-1842Jhifrznp Results Test NameValueInterpretationReference RangeFacilityOffice Visiton 07-24-2025 Follow-up [id number] Betty Camarena 1940 F Date Provider Department Center 07/24/2025 [id number]-ISUUZUKRUNAL COATES Family History Family Status - Relation Status Age at Mother Father Level of Service:26263 MA OFFICE/OUTPATIENT ESTABLISHED MOD MDM 30 MIN Reason for Visit and Comments: Follow-up [563238] - Patient is here today for a 3 week follow. With Echo Coronary Artery Disease [187] Hypertension [376083] Atrial Fibrillation [80] Congestive Heart Failure [127] Palpitations [186638] - Palpitations/racingNormalUniversLicking Memorial Hospital36on 89-71-252217Vutaezaym lab results from 07/07/2025: Krunal Coates made aware of lab results. I also spoke with patient and informed her of normal renal function, normal electrolytes, and normal BNP. Told her thyroid function was abnormal and I faxed results to Dr. Chen. Patient verbalized understanding.[facility] Follow-up [id number] Betty Camarena 1940 F Date Provider Department Center 07/07/2025 [id number], ADAM VIRY Munguia Family History Family Status - Relation Status Age at Mother Father Level of Service:08063 MA OFFICE/OUTPATIENT ESTABLISHED MOD MDM 30 MIN Reason for Visit and Comments: Coronary Artery Disease [187] Congestive Heart Failure [127] Atrial Fibrillation [80] Hypertension [729575] Palpitations [156992] - Patient is here today for a follow up appointment. Patient complains of an increased in palpitations Dizziness [194961] Nausea and belching [Other] Fatigue [46] Shortness of Breath [563093][place] [address]on 82-88-167888ChiawrMD Selena Oviedo MA Blood test was normal, waiting for the carotid ultrasound result. MD Selena Oviedo MA Her carotid ultrasound showed stable carotid disease. Follow up as planned. Spoke to patient advised patient of her test results per Dr. Medrano. Patient states ok, she will follow up in 1 year. 01/04/2025NormalUniversity Ashtabula General HospitalOffice Visiton 58-04-2638Pnijwo-up [id number] Betty Camarena 1940 Date Provider Department Center 12/26/2024 DENISA BELLAMY VIRY Munguia No family history on file Level of Service:68036 MA OFFICE/OUTPATIENT ESTABLISHED MOD MDM [facility] MINReg[facility] CenterPROF CHEM 8 (BAS METB)on 22-49-8307Kiuxa gap [Moles/Vol]12.8 mmol/LNormalThe City HospitalComment on above:Performed By: #### BMP, HSTROPN, CK #### [facility] [address] [place] [address] Dr. Manfred BrooksCalcium [Mass/Vol]9.5 mg/dLNormal8.5-10.1[facility] Comment on above:Performed By: #### BMP, HSTROPN, CK #### [facility] [address] [address] [address] Manfred BrooksChloride [Moles/Vol]106 mmol/PXrnppv66-811Ftf [facility] Comment on above:Performed By: #### BMP, HSTROPN, CK #### [facility] [address] [place] [address] Dr. Manfred BrooksCO2 [Moles/Vol]27.3 mmol/OVauvda60.0-32.0[facility] Comment on above:Performed By: #### BMP, HSTROPN, CK #### [facility] [address] [place] [address] Dr. Manfred BrooksCreatinine [Mass/Vol]0.93 mg/dLNormal0.55-1.02The City HospitalComment on above:Performed By: #### BMP, HSTROPN, CK #### [facility] [address] [place] [address] Dr. Shearer ChangEGFR-AF ICELANDIC>60Normal>=60The City HospitalComment on above:Performed By: #### BMP, HSTROPN, CK #### [facility] [address] [place] [address] Dr. Shearer ChangEGFR-NON AF BIRIVHIB25 mL/min/1.23c5Cmnsvcutel low>=60The City HospitalComment on above:Performed By: #### BMP, HSTROPN, CK #### [facility] [address] [place] [address] Dr. Manfred BrooksGlucose [Mass/Vol]116 mg/dLCritically uulf52-407Gku City HospitalComment on above:Performed By: #### BMP, HSTROPN, CK #### [facility] [address] [place] [address] Dr. Manfred BrooksPotassium [Moles/Vol]4.1 mmol/LNormal3.5-5.1[facility] Comment on above:Performed By: #### BMP, HSTROPN, CK #### [facility] [address] [place] [address] Dr. Manfred BrooksSodium [Moles/Vol]142 mmol/FQztjuk741-452Xdt [facility] Comment on above:Performed By: #### BMP, HSTROPN, CK #### [facility] [address] [place] [address] Dr. Manfred BrooksUrea nitrogen [Mass/Vol]19.0 mg/dLCritically high7.0-18.0The City HospitalComment on above:Performed By: #### BMP, HSTROPN, CK #### [facility] [address] [place] [address] Dr. Manfred Quiñones nitrogen/Creatinine [Mass ratio]20.4 mg/mgNormalThe City HospitalComment on above:Performed By: #### BMP, HSTROPN, CK #### [facility] [address] [place] [address] Dr. Manfred Campos AUTO DIFFon 44-02-3657ANHY #0.1 103/ulNormal0.0-0.1[facility] HospitalComment on above:Performed By: #### CVDTBH #### [facility] [address] [place] [address] Dr. Manfred BrooksBabeccaphils/100 WBC (Bld)0.7 %Normal0.2-2.0[facility] Comment on above:Performed By: #### CVDTBH #### [facility] [address] [place] [address] Dr. Manfred Noguera #0.1 103/ulNormal0.0-0.7The City HospitalComment on above: Performed By: #### CVDTBH #### [facility] [address] [place] [address] Dr. Manfred Richardsonosinophils/100 WBC (Bld)1.9 %Normal0.9-7.0[facility] Comment on above:Performed By: #### CVDTBH #### [facility] [address] [place] [address] Dr. Manfred Richardsonrythrocyte distribution width (RBC) [Ratio]15.5 %Critically high 11.0-15.0The City HospitalComment on above:Performed By: #### CVDTBH #### [facility] [address] [place] [address] Dr. Manfred BrooksHematocrit (Bld) [Volume fraction]39.1 %Vbtpcp32.0-48.0The City HospitalComment on above:Performed By: #### CVDTBH #### [facility] [address] [place] [address] Dr. Manfred BrooksHemoglobin (Bld) [Mass/Vol]12.6 g/jFShxnzl62.0-16.0The City HospitalComment on above:Performed By: #### CVDTBH #### [facility] [address] [place] [address] Dr. Manfred Sherman #0.02 10e3/ulNormal0.00-0.03The City HospitalComment on above:Performed By: #### CVDTBH #### [facility] [address] [place] [address] Dr. Manfred Sherman %0.3 %Normal0.0-0.5The City HospitalComment on above: Performed By: #### CVDTBH #### [facility] [address] [place] [address] Dr. Manfred GlezH #2.5 103/ulNormal1.2-3.8The City HospitalComment on above:Performed By: #### CVDTBH #### [facility] [address] [place] [address] Dr. Manfred Emersonmphocytes/100 WBC (Bld)36.2 %Dxurtc53.5-60.0The City HospitalComment on above:Performed By: #### CVDTBH #### [facility] [address] [place] [address] Dr. Manfred Greene DIFF REQNONormalThe City HospitalComment on above: Performed By: #### CVDTBH #### [facility] [address] [place] [address] Dr. Manfred Woodson (RBC) [Entitic mass]29.0 xdGodqts70.7-34.0The City HospitalComment on above:Performed By: #### CVDTBH #### [facility] [address] [place] [address] Dr. Manfred Woodson (RBC) [Mass/Vol]32.2 g/pAYdjdis13.9-35.2The City HospitalComment on above:Performed By: #### SOLTBH #### [facility] [address] [place] [address] Dr. Manfred Barnes (RBC) [Entitic vol]89.9 jMXwffcn79.0-99.0The City HospitalComment on above:Performed By: #### CVDTBH #### [facility] [address] [place] [address] Dr. Manfred Mazariegos #0.6 103/ulNormal0.3-0.8The City HospitalComment on above:Performed By: #### CVDTBH #### [facility] [address] [place] [address] Dr. Manfred Morenoocytes/100 WBC (Bld)9.2 %Normal1.7-12.0[facility] Comment on above:Performed By: #### CVDTBH #### [facility] [address] [place] [address] Dr. Manfred Hahn #3.5 103/ulNormal1.4-6.5The City HospitalComment on above:Performed By: #### CVDTBH #### [facility] [address] [place] [address] Dr. Yilan ChangNeutrophils/100 WBC (Bld)51.7 %Tpmbzi56.0-75.0The City HospitalComment on above:Performed By: #### CVDTBH #### [facility] [address] [place] [address] Dr. Manfred Main mean volume (Bld) [Entitic vol]11.3 fLNormal9.5-13.5The City HospitalComment on above:Performed By: #### CVDTBH #### [facility] [address] [place] [address] Dr. Manfred BrooksPLT215 103/ibJhvkno595-215Uua City HospitalComaspirus [facility] on above: Performed By: #### CVDTBH #### [facility] [address] [place] [address] Dr. Manfred BrooksRBC4.35 106/ulNormal4.20-5.40The City HospitalComment on above:Performed By: #### CVDTBH #### [facility] [address] [place] [address] Dr. Manfred BrooksWBC6.8 103/ulNormal4.0-11.0The City HospitalComaspirus keweenaw hospital on above: Performed By: #### CVDTBH #### [facility] [address] [place] [address] Dr. Manfred Ambrocio 05-80-7025YK [Catalytic activity/Vol]121 U/HOkkwtm30-915Cef City HospitalComment on above:Performed By: #### BMP, HSTROPN, CK #### [facility] [address] [place] [address] Dr. Manfred BrooksPROF CHEM 8 (BAS METB)on 97-19-9292Oomod gap [Moles/Vol]14.2 mmol/LNormalThe City HospitalComaspirus ke[facility] on above:Performed By: #### BMP, HSTROPN, CK #### [facility] [address] [place] [address] Dr. Manfred BrooksCalcium [Mass/Vol]9.3 mg/dLNormal8.5-10.1[facility] Comment on above:Performed By: #### BMP, HSTROPN, CK #### [facility] [address] [place] [address] Dr. Manfred BrooksChloride [Moles/Vol]103 mmol/VHdqhcq32-896JorC[facility] Clinic [facility] Hospital Comment on above:Performed By: #### BMP, HSTROPN, CK #### [facility] [address] [place] [address] Dr. Manfred BrooksCO2 [Moles/Vol]30.5 mmol/FCihrqq64.0-32.0[facility] Comment on above:Performed By: #### BMP, HSTROPN, CK #### [facility] [address] [place] [address] Dr. Manfred BrooksCreatinine [Mass/Vol]0.76 mg/dLNormal0.55-1.02[facility] HospitalComment on above:Performed By: #### BMP, HSTROPN, CK #### [facility] [address] [place] [address] Dr. Manfred RichardsonGFR-AF ICELANDIC>60Normal>=60[facility] HospitalComment on above:Performed By: #### BMP, HSTROPN, CK #### [facility] [address] [place] [address] Dr. Manfred RichardsonGFR-NON AF ICELANDIC>60Normal>=60The City HospitalComment on above:Performed By: #### BMP, HSTROPN, CK #### [facility] [address] [place] [address] Dr. Manfred BrooksGlucose [Mass/Vol]97 mg/hCSvfusq35-236GfvCleveland Clinic [facility] Hospital Comment on above:Performed By: #### BMP, HSTROPN, CK #### [facility] [address] [place] [address] Dr. Manfred BrooksPotassium [Moles/Vol]4.7 mmol/LNormal3.5-5.1[facility] Comment on above:Performed By: #### BMP, HSTROPN, CK #### [facility] [address] [address] [address] Manfred BrooksSodium [Moles/Vol]143 mmol/JBnizpj868-667Hbx [facility] Comment on above:Performed By: #### BMP, HSTROPN, CK #### [facility] [address] [address] [address] Manfred BrooksUrea nitrogen [Mass/Vol]16.0 mg/dLNormal7.0-18.0The City HospitalComment on above:Performed By: #### BMP, HSTROPN, CK #### [facility] [address] [address] [address] Manfred BrooksUrea nitrogen/Creatinine [Mass ratio]21.1 mg/mgNormalThe City HospitalComment on above:Performed By: #### BMP, HSTROPN, CK #### [facility] [address] [address] [address] Manfred Hood, HIGH SENSITIVITYon 21-88-2089OLMBDX3.1 pg/mLNormal 4.0-51.3The City HospitalComment on above:Result Comment: CUT-OFF POINTS HAVE BEEN ESTABLISHED BASED ON THE FOURTH UNIVERSAL DEFINITIONS OF MYOCARDIAL INFARCTION. THE UPPER REFERENCE LIMIT (URL) OF TROPONIN, DEFINED THE 99TH PERCENTILE OF cTnI DISTRIBUTION IN A REFERENCE POPULATION, HAS BEEN CONFIRMED THE DECISION THRESHOLD FOR MD DIAGNOSIS.Performed By: #### BMP, HSTROPN, CK #### [facility] [address] [place] [address] Dr. Manfred BrooksXR CHEST 1 Von 71-59-9969AK CHEST 1 VEXAM: XR CHEST 1 V HISTORY: NAUSEA WITH [...] Electronically authenticated by: NICOLE CLINE Date: 2023-01-09 08:12NoSouth[facility] AUTO DIFFon 52-50-5317RUKG #0.1 103/ulNormal0.0-0.1The City HospitalComment on above:Performed By: #### BMP, HSTROPN, CK #### [facility] [address] [address] [address] Manfred BrooksBasophils/100 WBC (Bld)0.8 %Normal0.2-2.0[facility] Comment on above:Performed By: #### BMP, HSTROPN, CK #### [facility] [address] [place] [address] Dr. Manfred Noguera #0.1 103/ulNormal0.0-0.7The City HospitalComment on above: Performed By: #### BMP, HSTROPN, CK #### [facility] [address] [place] [address] Dr. Manfred Richardsonosinophils/100 WBC (Bld)2.4 %Normal0.9-7.0[facility] Comment on above:Performed By: #### FRANKLYN, HSTROPN, CK #### [facility] [address] [place] [address] Dr. Manfred Richardsonrythrocyte distribution width (RBC) [Ratio]15.6 %Critically high 11.0-15.0The City HospitalComment on above:Performed By: #### FRANKLYN, HSTROPN, CK #### [facility] [address] [place] [address] Dr. Manfred BrooksHematocrit (Bld) [Volume fraction]36.6 %Ehzdkt88.0-48.0The City HospitalComment on above:Performed By: #### FRANKLYN, HSTROPN, CK #### [facility] [address] [place] [address] Dr. Manfred BrooksHemoglobin (Bld) [Mass/Vol]11.8 g/dLCritically low12.0-16.0The City HospitalComment on above:Result Comment: PATIENT RECIEVED FLUIDS YESTERDAY AFTER MORNING CBCPerformed By: #### BMP, HSTROPN, CK #### [facility] [address] [place] [address] Dr. Manfred Sherman #0.01 10e3/ulNormal0.00-0.03The [facility] Hospitalment on above:Performed By: #### FRANKLYN, HSTROPN, CK #### [facility] [address] [place] [address] Dr. Manfred Sherman %0.2 %Normal0.0-0.5The City HospitalComment on above: Performed By: #### FRANKLYN, HSTROPN, CK #### [facility] [address] [place] [address] Dr. Manfred Chapin #2.1 103/ulNormal1.2-3.8The City HospitalComment on above:Performed By: #### FRANKLYN, HSTROPN, CK #### [facility] [address] [place] [address] Dr. Manfred Glezhocytes/100 WBC (Bld)35.1 %Spmtuv55.5-60.0[facility] on above:Performed By: #### FRANKLYN HSTROPN, CK #### [facility] [address] [place] [address] Dr. Manfred GreshamUAL DIFF REQNONormalThe City HospitalComment on above: Performed By: #### FRANKLYN, HSTROPN, CK #### [facility] [address] [place] [address] Dr. Manfred Jama (RBC) [Entitic mass]28.9 mtRhiatz82.7-34.0The City HospitalComment on above:Performed By: #### FRANKLYN, HSTROPN, CK #### [facility] [address] [place] [address] Dr. Manfred Woodson (RBC) [Mass/Vol]32.2 g/kTRkhbqd36.9-35.2The City HospitalComment on above:Performed By: #### BMP, HSTROPN, CK #### [facility] [address] [place] [address] Dr. Manfred Barnes (RBC) [Entitic vol]89.7 kBSzcxqg60.0-99.0The City HospitalComment on above:Performed By: #### BMP, HSTROPN, CK #### [facility] [address] [place] [address] Dr. Manfred Mzaariegos #0.6 103/ulNormal0.3-0.8The City HospitalComment on above:Performed By: #### BMP, HSTROPN, CK #### [facility] [address] [place] [address] Dr. Manfred Morenoocytes/100 WBC (Bld)9.4 %Normal1.7-12.0[facility] Comment on above:Performed By: #### BMP, HSTROPN, CK #### [facility] [address] [place] [address] Dr. Manfred Hahn #3.1 103/ulNormal1.4-6.5The City HospitalComment on above:Performed By: #### BMP, HSTROPN, CK #### [facility] [address] [place] [address] Dr. Manfred Jaimesutrophils/100 WBC (Bld)52.1 %Qimonv51.0-75.0The City HospitalComment on above:Performed By: #### BMP, HSTROPN, CK #### [facility] [address] [place] [address] Dr. Manfred Main mean volume (Bld) [Entitic vol]10.3 fLNormal9.5-13.5The City HospitalComment on above:Performed By: #### BMP, HSTROPN, CK #### [facility] [address] [place] [address] Dr. Manfred NevarezT252 103/ufVhmlde388-206Veb City HospitalComment on above: Performed By: #### BMP, HSTROPN, CK #### [facility] [address] [place] [address] Dr. Manfred BrooksRBC4.08 106/ulCritically low4.20-5.40The City HospitalComment on above:Performed By: #### BMP, HSTROPN, CK #### [facility] [address] [place] [address] Dr. Manfred BrooksWBC5.9 103/ulNormal4.0-11.0The [facility] HospitalComment on above: Performed By: #### BMP, HSTROPN, CK #### [facility] [address] [place] [address] Dr. Manfred AvendanoGOAROLDOon 41-93-6091SQQ2.5 ng/mLCritically low0.9-2.0The City HospitalComment on above:Performed By: #### MILTON BARRIOS #### [facility] [address] [place] [address] Dr. Manfred Garcia 14(COMP METB)on 05-21-7141Jvrsblh [Mass/Vol]3.6 g/dLNormal 3.4-5.0The City HospitalComment on above:Performed By: #### CVDTBH #### [facility] [address] [place] [address] Dr. Manfred BrooksAlbumin/Globulin [Mass ratio]1.3 {ratio}NormalThe City HospitalComment on above:Performed By: #### CVDTBH #### [facility] [address] [place] [address] Dr. Manfred Miramontes [Catalytic activity/Vol]67 U/UBsxxgd46-374Nfa City HospitalComment on above:Performed By: #### CVDTBH #### [facility] [address] [place] [address] Dr. Manfred Pryor [Catalytic activity/Vol]23 U/HYpckvd45-69Xdi City HospitalComment on above:Performed By: #### CVDTBH #### [facility] [address] [place] [address] Dr. Manfred BrooksAnion gap [Moles/Vol]10.8 mmol/LNormalCleveland Clinic [facility] Comment on above:Performed By: #### CVDTBH #### [facility] [address] [address] [address] Manfred BrooksAST [Catalytic activity/Vol]14 U/LCritically hzj02-35Ose City HospitalComment on above:Performed By: #### CVDTBH #### [facility] [address] [address] [address] Manfred BrooksBilirubin [Mass/Vol]0.7 mg/dLNormal0.2-1.0[facility] Comment on above:Performed By: #### CVDTBH #### [facility] [address] [place] [address] Dr. Manfred BrooksCalcium [Mass/Vol]8.7 mg/dLNormal8.5-10.1[facility] Comment on above:Performed By: #### CVDTBH #### [facility] [address] [place] [address] Dr. Manfred BrooksChloride [Moles/Vol]106 mmol/JOobkxt06-381[facility] Comment on above:Performed By: #### CVDTBH #### [facility] [address] [place] [address] Dr. Manfred BrooksCO2 [Moles/Vol]29.8 mmol/BIqapek77.0-32.0[facility] Comment on above:Performed By: #### CVDTBH #### [facility] [address] [place] [address] Dr. Manfred BrooksCreatinine [Mass/Vol]0.77 mg/dLNormal0.55-1.02The City HospitalComment on above:Performed By: #### CVDTBH #### [facility] [address] [place] [address] Dr. Manfred RichardsonGFR-AF ICELANDIC>60Normal>=60The City HospitalComment on above:Performed By: #### CVDTBH #### [facility] [address] [address] [address] Manfred RichardsonGFR-NON AF ICELANDIC>60Normal>=60The City HospitalComment on above:Performed By: #### CVDTBH #### [facility] [address] [address] [address] Manfred BrooksGlobulin (S) [Mass/Vol]2.7 g/dLNoalThOhioHealth Dublin Methodist HospitalComment on above:Performed By: #### CVDTBH #### [facility] [address] [address] [address] Manfred BrooksGlucose [Mass/Vol]99 mg/qFWuoqvz12-772CykCleveland Clinic [facility] Comment on above:Performed By: #### CVDTBH #### [facility] [address] [place] [address] Dr. Manfred BrooksPotassium [Moles/Vol]3.6 mmol/LNormal3.5-5.1[facility] Comment on above:Performed By: #### CVDTBH #### [facility] [address] [place] [address] Dr. Manfred BrooksProtein [Mass/Vol]6.3 g/dLCritically low6.4-8.2[facility] HospitalComment on above:Performed By: #### CVDTBH #### [facility] [address] [address] [address] Manfred BrooksSodium [Moles/Vol]143 mmol/XUcbhqy067-368JiwCleveland Clinic Mentor Hospital Comment on above:Performed By: #### CVDTBH #### [facility] [address] [place] [address] Dr. Manfred BrooksUrea nitrogen [Mass/Vol]19.0 mg/dLCritically high7.0-18.0The City HospitalComment on above:Performed By: #### CVDTBH #### [facility] [address] [place] [address] Dr. Manfred BrooksUrea nitrogen/Creatinine [Mass ratio]24.7 mg/mgNoalThe City HospitalComment on above:Performed By: #### CVDTBH #### [facility] [address] [place] [address] Dr. Manfred Avila 41-99-9972Zcatokuozaa peptide B (Bld) [Mass/Vol]186.0 pg/mL Normal<=1,800.0The City HospitalComment on above:Performed By: #### OSEASRMILTON #### [facility] [address] [place] [address] Dr. Manfred Campos AUTO DIFFon [id number] #0.1 103/ulNormal0.0-0.1The City HospitalComment on above:Performed By: #### BNP, CMP #### [facility] [address] [place] [address] Dr. Manfred BrooksBasophils/100 WBC (Bld)1.2 %Normal0.2-2.0[facility] Comment on above:Performed By: #### BNP, CMP #### [facility] [address] [place] [address] Dr. Manfred Noguera #0.1 103/ulNormal0.0-0.7The City HospitalComment on above: Performed By: #### BNP, CMP #### [facility] [address] [place] [address] Dr. Manfred Richardsonosinophils/100 WBC (Bld)2.1 %Normal0.9-7.0[facility] Comment on above:Performed By: #### BNP, CMP #### [facility] [address] [place] [address] Dr. Manfred Richardsonrythrocyte distribution width (RBC) [Ratio]15.2 %Critically high 11.0-15.0The City HospitalComment on above:Performed By: #### BNP, CMP #### [facility] [address] [place] [address] Dr. Manfred BrooksHematocrit (Bld) [Volume fraction]42.3 %Tmhybs10.0-48.0The City HospitalComment on above:Performed By: #### BNP, CMP #### [facility] [address] [place] [address] Dr. Manfred BrooksHemoglobin (Bld) [Mass/Vol]13.8 g/lIBoxtpv25.0-16.0[facility] on above:Performed By: #### BNP, CMP #### [facility] [address] [place] [address] Dr. Manfred Sherman #0.01 10e3/ulNormal0.00-0.03The City HospitalComment on above:Performed By: #### BNP, CMP #### [facility] [address] [place] [address] Dr. Manfred Sherman %0.2 %Normal0.0-0.5The [facility] HospitalComaspirus [facility] on above: Performed By: #### BNP, CMP #### [facility] [address] [place] [address] Dr. Manfred Chapin #2.1 103/ulNormal1.2-3.8The City HospitalComment on above:Performed By: #### BNP, CMP #### [facility] [address] [place] [address] Dr. Manfred Glezhocytes/100 WBC (Bld)35.6 %Llekyt03.5-60.0The City HospitalComaspirus keweenaw hospital on above:Performed By: #### BNP, CMP #### [facility] [address] [place] [address] Dr. Manfred GreshamUAL DIFF REQNONormalThe City HospitalComment on above: Performed By: #### BNP, CMP #### [facility] [address] [place] [address] Dr. Manfred Woodson (RBC) [Entitic mass]29.1 njQrvhcr82.7-34.0The City HospitalComment on above:Performed By: #### BNP, CMP #### [facility] [address] [place] [address] Dr. Manfred Woodson (RBC) [Mass/Vol]32.6 g/dAKihubi15.9-35.2The City HospitalComment on above:Performed By: #### BNP, CMP #### [facility] [address] [place] [address] Dr. Manfred Barnes (RBC) [Entitic vol]89.2 mJFoabbz38.0-99.0The City HospitalComment on above:Performed By: #### BNP, CMP #### [facility] [address] [place] [address] Dr. Manfred Mazariegos #0.5 103/ulNormal0.3-0.8The [facility]lehem HospitalComment on above:Performed By: #### BNP, CMP #### [facility] [address] [place] [address] Dr. Manfred Morenoocytes/100 WBC (Bld)9.0 %Normal1.7-12.0[facility] Comment on above:Performed By: #### BNP, CMP #### [facility] [address] [place] [address] Dr. Manfred Hahn #3.0 103/ulNormal1.4-6.5The City HospitalComment on above:Performed By: #### BNP, CMP #### [facility] [address] [place] [address] Dr. Manfred Jaimesutrophils/100 WBC (Bld)51.9 %Relksi97.0-75.0The City HospitalComment on above:Performed By: #### BNP, CMP #### [facility] [address] [place] [address] Dr. Manfred Main mean volume (Bld) [Entitic vol]10.1 fLNormal9.5-13.5The City HospitalComment on above:Performed By: #### BNP, CMP #### [facility] [address] [place] [address] Dr. Manfred BrooksPLT290 103/haHptdwa432-750Upn City HospitalComment on above: Performed By: #### BNP, CMP #### [facility] [address] [place] [address] Dr. Manfred BrooksRBC4.74 106/ulNormal4.20-5.40The City HospitalComment on above:Performed By: #### BNP, CMP #### [facility] [address] [place] [address] Dr. Manfred BrooksWBC5.8 103/ulNormal4.0-11.0The City HospitalComment on above: Performed By: #### BNP, CMP #### [facility] [address] [place] [address] Dr. Manfred BrooksCovid-19 PCR (CVDTB)on 45-13-0169GWYO-CoV-2 (COVID-19) RNA DAMIR+probe Ql (Unsp spec)Not detectedNormalNOT DETECTEDThe [facility] Comment on above:Result Comment: When diagnostic testing is negative, the [...] for this test is supported by the Insulation Manager of Health and Human Service's declaration that circumstances exist to justify the emergency use of in vitro diagnostics for the detection and/or diagnosis of the virus that causes COVID-19. This EUA will remain in effect for the duration of the COVID-19 declaration justifying emergency of IVDs, unless it is terminated or revoked by the FDA (after which the test may no longer be used).Performed By: #### CVDTBH #### [facility] [address] [place] [address] Dr. Shearer ChangECHOCARDIO M/2D COMPLETEon [id number] M/2D COMPLETE Patient: BETTY CAMARENA Exam Date: 01/06/2023 : 1940 Gender:F Ordering : DR CAM CHEN . Admission #: [id number] Family : DR DENISA KNAPP M.D. Order #: [id number] CLICK HERE TO VIEW EXAM ECHOCARDIOGRAM REPORT [...] 4.04 mm[Hg] Right Atrium Dictated by: Denisa Knapp M.D. on 01/06/2023 at 17:28 Approved by: Denisa Knapp M.D. on 01/06/2023 at 17:34NoWexner Medical CenterFREE T3on 03-95-0252RQKM T35.79 pg/mlLCritically high2.18-3.98The City HospitalComment on above:Performed By: #### CVDTBH #### [facility] [address] [place] [address] Dr. Manfred BrooksLACTATE/LACTIC ACIDon 16-50-5009Vlxkiln [Moles/Vol]1.6 mmol/L Normal0.4-2.0The City HospitalComment on above:Performed By: #### BMP, HSTROPN, CK #### [facility] [address] [place] [address] Dr. Manfred BrooksPROF 14(COMP METB)on 78-87-1220Ougpbpz [Mass/Vol]4.1 g/dLNormal 3.4-5.0The City HospitalComment on above:Performed By: #### ERUAlin UMICRO #### [facility] [address] [place] [address] Dr. Manfred BrooksAlbumin/Globulin [Mass ratio]1.2 {ratio}NormalThe City HospitalComment on above:Performed By: #### ERUR UMICRO #### [facility] [address] [place] [address] Dr. Yilan ChangALP [Catalytic activity/Vol]74 U/NNxeeml63-774Mci City HospitalComment on above:Performed By: #### MILTON BARRIOS #### [facility] [address] [place] [address] Dr. Manfred StaffordT [Catalytic activity/Vol]29 U/VCrdjgl69-33Luv City HospitalComment on above:Performed By: #### MILTON BARRIOS #### [facility] [address] [place] [address] Dr. Manfred Salcidoon gap [Moles/Vol]13.8 mmol/LNormalC[facility] Clinic [facility] Comment on above:Performed By: #### MILTON BARRIOS #### [facility] [address] [place] [address] Dr. Manfred BrooksAST [Catalytic activity/Vol]19 U/IBonduv34-07Cqe City HospitalComment on above:Performed By: #### MILTON BARRIOS #### [facility] [address] [place] [address] Dr. Manfred BrooksBilirubin [Mass/Vol]0.4 mg/dLNormal0.2-1.0[facility] Comment on above:Performed By: #### MILTON BARRIOS #### [facility] [address] [place] [address] Dr. Manfred BrooksCalcium [Mass/Vol]9.6 mg/dLNormal8.5-10.1[facility] Comment on above:Performed By: #### MILTON BARRIOS #### [facility] [address] [place] [address] Dr. Manfred BrooksChloride [Moles/Vol]108 mmol/LCritically xfyy83-973Ooi City HospitalComment on above:Performed By: #### MILTON BARRIOS #### [facility] [address] [place] [address] Dr. Manfred BrooksCO2 [Moles/Vol]31.0 mmol/PChtiks49.0-32.0[facility] Comment on above:Performed By: #### ERUR, UMICRO #### [facility] [address] [address] [address] Manfred BrooksCreatinine [Mass/Vol]0.80 mg/dLNormal0.55-1.02The City HospitalComment on above:Performed By: #### ERUR, UMICRO #### [facility] [address] [address] [address] Manfred RichardsonGFR-AF ICELANDIC>60Normal>=60The City HospitalComment on above:Performed By: #### ERUR, UMICRO #### [facility] [address] [address] [address] Manfred RichardsonGFR-NON AF ICELANDIC>60Normal>=60The City HospitalComment on above:Performed By: #### ERUR, UMICRO #### [facility] [address] [place] [address] Dr. Manfred BrooksGlobulin (S) [Mass/Vol]3.3 g/dLNormalThe City HospitalComment on above:Performed By: #### ERUR, UMICRO #### [facility] [address] [address] [address] Manfred BrooksGlucose [Mass/Vol]132 mg/dLCritically kmfa52-459Qym City HospitalComment on above:Performed By: #### ERUR, UMICRO #### [facility] [address] [address] [address] Manfred BrooksPotassium [Moles/Vol]3.8 mmol/LNormal3.5-5.1[facility] Comment on above:Performed By: #### ERUR, UMICRO #### [facility] [address] [address] [address] Manfred BrooksProtein [Mass/Vol]7.4 g/dLNormal6.4-8.2[facility] Comment on above:Performed By: #### ERUR, UMICRO #### [facility] [address] [address] [address] Manfred BrooksSodium [Moles/Vol]149 mmol/LCritically mkzw738-080SfsCleveland Clinic Medina Hospitalment on above:Performed By: #### MILTON BARRIOS #### [facility] [address] [place] [address] Dr. Manfred Quiñones nitrogen [Mass/Vol]20.0 mg/dLCritically high7.0-18.0[facility] HospitalComment on above:Performed By: #### MILTON BARRIOS #### [facility] [address] [place] [address] Dr. Manfred Quiñones nitrogen/Creatinine [Mass ratio]25.0 mg/mgNoWexner Medical CenterComment on above:Performed By: #### MILTON BARRIOS #### [facility] [address] [place] [address] Dr. Manfred Odell 85-94-9781KBD Coag (PPP) [Relative time]0.99 {INR} NormalCleveland Clinic Mentor HospitalComment on above:Performed By: #### FRANKLYN HSTROPZachary, CK #### [facility] [address] [place] [address] Dr. Manfred Perez GUIDELINESSEE BELOWKindred Hospital LimaComment on above:Result Comment: DESIRED INR: 2.0 - 3.0 CONDITIONS NOT LISTED BELOW 2.5 - 3.5 FOR PROSTHETIC HEART VALVE REPLACEMENT 2.5 - 3.5 RECURRENT THROMBOSIS Performed By: #### FRANKLYN, HSTROPN, CK #### [facility] [address] [place] [address] Dr. Manfred BrooksPT Coag (PPP) [Time]10.5 sNormal9.0-11.6[facility] Comment on above:Performed By: #### BMP, HSTROPN, CK #### [facility] [address] [place] [address] Dr. Manfred Wahl 56-45-1097nPJU Coag (Bld) [Time]28.9 zWgyznm02.3-36.2[facility] HospitalComment on above:Performed By: #### BMP, HSTROPN, CK #### [facility] [address] [place] [address] Dr. Manfred BrooksT4on 33-36-8111J2 [Mass/Vol]8.00 ug/dLNormal4.80-13.90[facility] on above:Performed By: #### BNP, CMP #### [facility] [address] [place] [address] Dr. Manfred Hood HIGH SENSITIVITYon 85-26-6977EYJZMM28.1 pg/mLNormal 4.0-51.3[facility] on above:Result Comment: CUT-OFF POINTS HAVE BEEN ESTABLISHED BASED ON THE FOURTH UNIVERSAL DEFINITIONS OF MYOCARDIAL INFARCTION. THE UPPER REFERENCE LIMIT (URL) OF TROPONIN, DEFINED THE 99TH PERCENTILE OF cTnI DISTRIBUTION IN A REFERENCE POPULATION, HAS BEEN CONFIRMED THE DECISION THRESHOLD FOR MD DIAGNOSIS.Performed By: #### ERUR, UMICRO #### [facility] [address] [place] [address] Dr. Manfred BrooksHSTROP10.5 pg/mLNormal4.0-51.3[facility] on above:Result Comment: CUT-OFF POINTS HAVE BEEN ESTABLISHED BASED ON THE FOURTH UNIVERSAL DEFINITIONS OF MYOCARDIAL INFARCTION. THE UPPER REFERENCE LIMIT (URL) OF TROPONIN, DEFINED THE 99TH PERCENTILE OF cTnI DISTRIBUTION IN A REFERENCE POPULATION, HAS BEEN CONFIRMED THE DECISION THRESHOLD FOR MD DIAGNOSIS.Performed By: #### ERUR, UMICRO #### [facility] [address] [place] [address] Dr. Manfred DeHozachary 56-27-8435XJI2.567 uIU/mLNormal0.358-3.740[facility] on above:Performed By: #### CVDTBH #### [facility] [address] [place] [address] Dr. Manfred BrooksXR CHEST 1 Von [id number] CHEST 1 VEXAMINATION: XR CHEST 1 V HISTORY: SHORTNESS OF BREATH , [...] atelectasis versus infiltrates. Electronically authenticated by: JOHAN GOODE Date: 2023-01-06 07:11[facility] Hospital LimaPROF CHEM 8 (BAS METB)on 32-00-2042Hoscj gap [Moles/Vol]13.1 mmol/LNormalThe City HospitalComment on above:Performed By: #### DENIS UMICRO #### [facility] [address] [place] [address] Dr. Manfred BrooksCalcium [Mass/Vol]9.3 mg/dLNormal8.5-10.1[facility] Comment on above:Performed By: #### DENIS UMICRO #### [facility] [address] [place] [address] Dr. Manfred BrooksChloride [Moles/Vol]104 mmol/JMhlhhc82-923RiqCleveland Clinic Ment[facility] Hospital Comment on above:Performed By: #### DENIS UMICRO #### [facility] [address] [place] [address] Dr. Manfred BrooksCO2 [Moles/Vol]29.7 mmol/CAhdesu08.0-32.0[facility] Comment on above:Performed By: #### ERUAlin UMICRO #### [facility] [address] [address] [address] Manfred BrooksCreatinine [Mass/Vol]0.72 mg/dLNormal0.55-1.02[facility] Ment[facility] HospitalComment on above:Performed By: #### DENIS UMICRO #### [facility] [address] [place] [address] Dr. Manfred RichardsonGFR-AF ICELANDIC>60Normal>=60[facility] HospitalComment on above:Performed By: #### ERUR UMICRO #### [facility] [address] [place] [address] Dr. Manfred RichardsonGFR-NON AF ICELANDIC>60Normal>=60The City HospitalComment on above:Performed By: #### ANU BARRIOSRO #### [facility] [address] [address] [address] Manfred BrooksGlucose [Mass/Vol]129 mg/dLCritically jchv91-776Ofy City HospitalComment on above:Performed By: #### ANU BARRIOSRO #### [facility] [address] [place] [address] Dr. Manfred BrooksPotassium [Moles/Vol]4.8 mmol/LNormal3.5-5.1[facility] Comment on above:Result Comment: specimen slightly hemolysed. suggest repeat. Performed By: #### MILTON BARRIOS #### [facility] [address] [place] [address] Dr. Manfred BrooksSodium [Moles/Vol]142 mmol/YPjzybh647-818[facility] Comment on above:Performed By: #### ANU BARRIOSRO #### [facility] [address] [place] [address] Dr. Manfred BrooksUrea nitrogen [Mass/Vol]17.0 mg/dLNormal7.0-18.0The City HospitalComment on above:Performed By: #### ANU BARRIOSRO #### [facility] [address] [place] [address] Dr. Manfred BrooksUrea nitrogen/Creatinine [Mass ratio]23.6 mg/mgNormalThe City HospitalComment on above:Performed By: #### ANU BARRIOSRO #### [facility] [address] [place] [address] Dr. Manfred Avila 98-92-4870Mldtkwnlwob peptide B (Bld) [Mass/Vol]322.0 pg/mL Normal<=1,800.0The City HospitalComment on above:Performed By: #### BMP, HSTROPN, CK #### [facility] [address] [place] [address] Dr. Manfred Rahman TELMA ADMITon 35-12-8740ZR [Catalytic activity/Vol]109 U/L Gvebiu78-696Vjw City HospitalComment on above:Performed By: #### BMP, HSTROPN, CK #### [facility] [address] [address] [address] Manfred Franco.MB [Mass/Vol]1.43 ng/mLNormal<=3.60[facility] Comment on above:Performed By: #### BMP, HSTROPN, CK #### [facility] [address] [address] [address] Manfred BootheTROP19.6 pg/mLNormal4.0-51.3The City HospitalComment on above:Result Comment: CUT-OFF POINTS HAVE BEEN ESTABLISHED BASED ON THE FOURTH UNIVERSAL DEFINITIONS OF MYOCARDIAL INFARCTION. THE UPPER REFERENCE LIMIT (URL) OF TROPONIN, DEFINED THE 99TH PERCENTILE OF cTnI DISTRIBUTION IN A REFERENCE POPULATION, HAS BEEN CONFIRMED THE DECISION THRESHOLD FOR MD DIAGNOSIS.Performed By: #### BMP, HSTROPN, CK #### [facility] [address] [place] [address] Dr. Manfred Cid71 ng/mLNormal9-82The City HospitalComment on above: Performed By: #### BMP, HSTROPN, CK #### [facility] [address] [place] [address] Dr. Manfred Campos AUTO DIFFon 50-27-6393DSBU #0.1 103/ulNormal0.0-0.1The City HospitalComment on above:Performed By: #### BMP, HSTROPN, CK #### [facility] [address] [place] [address] Dr. Manfred BrooksBasophils/100 WBC (Bld)1.4 %Normal0.2-2.0[facility] Comment on above:Performed By: #### BMP, HSTROPN, CK #### [facility] [address] [place] [address] Dr. Manfred Noguera #0.1 103/ulNormal0.0-0.7The City HospitalComment on above: Performed By: #### BMP, HSTROPN, CK #### [facility] [address] [place] [address] Dr. Manfred Richardsonosinophils/100 WBC (Bld)2.3 %Normal0.9-7.0[facility] Comment on above:Performed By: #### FRANKLYN, HSTROPN, CK #### [facility] [address] [place] [address] Dr. Manfred Richardsonrythrocyte distribution width (RBC) [Ratio]14.4 %Mlqipk89.0-15.0 The City HospitalComment on above:Performed By: #### FRANKLYN HSTROPN, CK #### [facility] [address] [place] [address] Dr. Manfred BrooksHematocrit (Bld) [Volume fraction]38.1 %Lguilo61.0-48.0The City HospitalComment on above:Performed By: #### FRANKLYN HSTRDANNIELLE, CK #### [facility] [address] [place] [address] Dr. Manfred BrooksHemoglobin (Bld) [Mass/Vol]12.1 g/gYIgnkvv25.0-16.0The City HospitalComment on above:Performed By: #### FRANKLYN HSTROPZachary, CK #### [facility] [address] [place] [address] Dr. Manfred BrooksIG #0.01 10e3/ulNormal0.00-0.03The City HospitalComment on above:Performed By: #### FRANKLYN HSTROPN, CK #### [facility] [address] [place] [address] Dr. Manfred BrooksIG %0.2 %Normal0.0-0.5The City HospitalComment on above: Performed By: #### FRANKLYN, HSTROPN, CK #### [facility] [address] [place] [address] Dr. Manfred EmersonMPH #1.0 103/ulCritically low1.2-3.8[facility] Comment on above:Performed By: #### BMP, HSTROPN, CK #### [facility] [address] [place] [address] Dr. Manfred Emersonmphocytes/100 WBC (Bld)22.4 %Fyfruw15.5-60.0The City HospitalComment on above:Performed By: #### BMP, HSTROPN, CK #### [facility] [address] [place] [address] Dr. Manfred GreshamUAL DIFF REQNONormalThe City HospitalComment on above: Performed By: #### BMP, HSTROPN, CK #### [facility] [address] [place] [address] Dr. Manfred Woodson (RBC) [Entitic mass]28.9 kzVhxqpt13.7-34.0The City HospitalComment on above:Performed By: #### BMP, HSTROPN, CK #### [facility] [address] [place] [address] Dr. Manfred Woodson (RBC) [Mass/Vol]31.8 g/xIHbnbzw86.9-35.2The City HospitalComment on above:Performed By: #### BMP, HSTROPN, CK #### [facility] [address] [place] [address] Dr. Manfred Barnes (RBC) [Entitic vol]90.9 lCKgmhnu50.0-99.0The City HospitalComment on above:Performed By: #### BMP, HSTROPN, CK #### [facility] [address] [place] [address] Dr. Manfred Mazariegos #0.5 103/ulNormal0.3-0.8The City HospitalComment on above:Performed By: #### BMP, HSTROPN, CK #### [facility] [address] [place] [address] Dr. Manfred Morenoocytes/100 WBC (Bld)10.2 %Normal1.7-12.0[facility] Comment on above:Performed By: #### BMP, HSTROPN, CK #### [facility] [address] [place] [address] Dr. Manfred Hahn #2.8 103/ulNormal1.4-6.5The City HospitalComment on above:Performed By: #### BMP, HSTROPN, CK #### [facility] [address] [place] [address] Dr. Manfred Jaimesutrophils/100 WBC (Bld)63.5 %Lhgcji23.0-75.0The City HospitalComment on above:Performed By: #### BMP, HSTROPN, CK #### [facility] [address] [place] [address] Dr. Manfred Ruddlet mean volume (Bld) [Entitic vol]10.1 fLNormal9.5-13.5The City HospitalComment on above:Performed By: #### BMP, HSTROPN, CK #### [facility] [address] [place] [address] Dr. Manfred BrooksPLT268 103/fkWrcwbo502-608Qey City HospitalComment on above: Performed By: #### BMP, HSTROPN, CK #### [facility] [address] [place] [address] Dr. Manfred BrooksRBC4.19 106/ulCritically low4.20-5.40The City HospitalComaspirus [facility] on above:Performed By: #### BMP, HSTROPN, CK #### [facility] [address] [place] [address] Dr. Manfred BrooksWBC4.4 103/ulNormal4.0-11.0The City HospitalComment on above: Performed By: #### BMP, HSTROPN, CK #### [facility] [address] [place] [address] Dr. Manfred BrooksCT STROKE HEAD WOon 80-70-3545OU STROKE HEAD WOEXAMINATION: CT STROKE HEAD WO HISTORY: Headache COMPARISON: None. TECHNIQUE: [...] intracranial abnormality. Results were called by Dr. Chukcy Valderrama MD to emergency department At 05/16/2022 1201 EDT. Electronically authenticated by: MCKINLEY VALDERRAMA Date: 2022-05-16 12:01[facility]imaCT N[facility] W CONon [id number] NECK WO W CONEXAMINATION: CTA NECK WO W CON, CTA HEAD WO W [...] or foraminal narrowing. Electronically authenticated by: JOHAN GOODE Date: 2022-05-16 13:32[facility] LimaCULTURE URINEon [id number] URINECulture Observations: LIGHT GROWTH OF MIXED GENITAL BETO. NO POTENTIAL PATHOGENS SEEN.NormalThe City HospitalComment on above:Performed By: #### JAMILAH ESTES CK #### [facility] [address] [place] [address] Dr. Manfred BrooksCovid-19 PCR (CVDTB)on 31-39-5632BNPW-CoV-2 (COVID-19) RNA DAMIR+probe Ql (Unsp spec)Not detectedNormalNOT DETECTEDThe City Hospital Comment on above:Result Comment: When diagnostic testing is negative, the [...] for this test is supported by the Insulation Manager of Health and Human Service's declaration that circumstances exist to justify the emergency use of in vitro diagnostics for the detection and/or diagnosis of the virus that causes COVID-19. This EUA will remain in effect for the duration of the COVID-19 declaration justifying emergency of IVDs, unless it is terminated or revoked by the FDA (after which the test may no longer be used).Performed By: #### CVDTBH #### [facility] [address] [place] [address] Dr. Manfred BrooksDIGOXINon 98-81-3761ZYS0.3 ng/mLCritically high0.9-2.0The City HospitalComment on above:Result Comment: repeatedPerformed By: #### JAMILAH ESTES CK #### [facility] [address] [place] [address] Dr. Shearer ChangEAlin URINE PROFILEon 02-40-3082Rgphayygg Ql (U)NegativeNormal NEGATIVEThe City HospitalComment on above:Performed By: #### IMLTON BARRIOS #### [facility] [address] [place] [address] Dr. Manfred Argueta (U)CLEARNormalCLEARCleveland Clinic Mentor HospitalComment on above: Performed By: #### DENIS UMICRO #### [facility] [address] [address] [address] Manfred Mejia (U)LT. YELLOWNormalYELLOWCleveland Clinic Mentor HospitalComment on above:Performed By: #### DENIS UMICRO #### [facility] [address] [address] [address] Manfred Escobar micrscopic examination will be performed if indicated. NormalCleveland Clinic Mentor HospitalComment on above:Performed By: #### DENIS UMICRO #### [facility] [address] [address] [address] Manfred BrooksGlucose Ql (U)NegativeNormalNEGATIVECleveland Clinic Mentor HospitalComment on above:Performed By: #### DENIS UMICRO #### [facility] [address] [address] [address] Manfred BrooksHemoglobin Ql (U)NegativeNormalNEGCleveland Clinic [facility] Hospital on above:Performed By: #### DENIS UMICRO #### [facility] [address] [address] [address] Manfred Hyattones Ql (U)NegativeNormalNEGATIVECleveland Clinic Mentor HospitalComment on above:Performed By: #### DENIS UMICRO #### [facility] [address] [address] [address] Manfred BrooksLEUKOCYTESMODERATEAbnormalNEGMansfield HospitalComment on above:Performed By: #### DENIS UMICRO #### [facility] [address] [address] [address] Manfred BrooksNitrite Ql (U)NegativeNormalNEGATIVECleveland Clinic Mentor HospitalComment on above:Performed By: #### DENIS UMICRO #### [facility] [address] [address] [address] Manfred BrookspH (U)6.5 [pH]Normal5-9C[facility] Ment[facility] HospitalComment on above: Performed By: #### ERUR, UMICRO #### [facility] [address] [address] [address] Manfred BrooksSPEC GRAVITY<=1.805Mtziuumg9.005-<=1.025[facility] Comment on above:Performed By: #### ERUR, UMICRO #### [facility] [address] [place] [address] Dr. Manfred Gooden PROTEINNegativeNormalNEGATIVE/ TRACECleveland Clinic Mentor Hospital Comment on above:Performed By: #### ERUR, UMICRO #### [facility] [address] [place] [address] Dr. Manfred Gayle MICRO INDINDICATEDNormalThe City HospitalComment on above: Performed By: #### ERUR UMICRO #### [facility] [address] [place] [address] Dr. Manfred Mcnamarabilinogen Qn (U)0.2 {Antionette'U}/dLNormal0.2 - 1.0The City HospitalComment on above:Performed By: #### DENIS UMICRO #### [facility] [address] [place] [address] Dr. Manfred BrooksCONVENT ST[facility] GLUCOSEon 24-31-5427Txqpzrl [Mass/Vol]109 mg/dL Critically nwat57-175GfnCleveland Clinic Mentor HospitalComment on above:Performed By: #### POCGLUC #### [facility] [address] [place] [address] Dr. Manfred Garcia 14(COMP METB)on 03-16-7254Dhrmuca [Mass/Vol]3.9 g/dLNormal 3.4-5.0The City HospitalComment on above:Performed By: #### BMP, HSTROPN, CK #### [facility] [address] [place] [address] Dr. Manfred BrooksAlbumin/Globulin [Mass ratio]1.3 {ratio}NormalThe City HospitalComment on above:Performed By: #### BMP, HSTROPN, CK #### [facility] [address] [place] [address] Dr. Manfred StaffordP [Catalytic activity/Vol]58 U/BKksvqo86-620Qml City HospitalComment on above:Performed By: #### BMP, HSTROPN, CK #### [facility] [address] [place] [address] Dr. Manfred Pryor [Catalytic activity/Vol]28 U/TKossig82-33Yei City HospitalComment on above:Performed By: #### BMP, HSTROPN, CK #### [facility] [address] [place] [address] Dr. Manfred Cassidy gap [Moles/Vol]11.4 mmol/LNormalThe [facility] Hospital Comment on above:Performed By: #### BMP, HSTROPN, CK #### [facility] [address] [place] [address] Dr. Manfred BrooksAST [Catalytic activity/Vol]18 U/YSffppb88-58Hej City HospitalComment on above:Performed By: #### BMP, HSTROPN, CK #### [facility] [address] [place] [address] Dr. Manfred BrooksBilirubin [Mass/Vol]0.6 mg/dLNormal0.2-1.0[facility] Comment on above:Performed By: #### BMP, HSTROPN, CK #### [facility] [address] [place] [address] Dr. Manfred BrooksCalcium [Mass/Vol]8.8 mg/dLNormal8.5-10.1[facility] Comment on above:Performed By: #### BMP, HSTROPN, CK #### [facility] [address] [place] [address] Dr. Manfred BrooksChloride [Moles/Vol]106 mmol/EUfrgey14-307Emf [facility] Comment on above:Performed By: #### BMP, HSTROPN, CK #### [facility] [address] [place] [address] Dr. Manfred BrooksCO2 [Moles/Vol]31.3 mmol/UDpvfly15.0-32.0[facility] Comment on above:Performed By: #### BMP, HSTROPN, CK #### [facility] [address] [address] [address] Manfred BrooksCreatinine [Mass/Vol]0.76 mg/dLNormal0.55-1.02The City HospitalComment on above:Performed By: #### BMP, HSTROPN, CK #### [facility] [address] [address] [address] Shearer ChangEGFR-AF ICELANDIC>60Normal>=60The City HospitalComment on above:Performed By: #### BMP, HSTROPN, CK #### [facility] [address] [place] [address] Dr. Manfred RichardsonGFR-NON AF ICELANDIC>60Normal>=60The City HospitalComment on above:Performed By: #### BMP, HSTROPN, CK #### [facility] [address] [place] [address] Dr. Manfred BrooksGlobulin (S) [Mass/Vol]2.9 g/dLNormalThe City HospitalComment on above:Performed By: #### BMP, HSTROPN, CK #### [facility] [address] [address] [address] Manfred BrooksGlucose [Mass/Vol]122 mg/dLCritically ldyt47-976Iha City HospitalComment on above:Performed By: #### BMP, HSTROPN, CK #### [facility] [address] [address] [address] Manfred BrooksPotassium [Moles/Vol]3.7 mmol/LNormal3.5-5.1[facility] Comment on above:Performed By: #### BMP, HSTROPN, CK #### [facility] [address] [place] [address] Dr. Manfred BrooksProtein [Mass/Vol]6.8 g/dLNormal6.4-8.2[facility] Comment on above:Performed By: #### BMP, HSTROPN, CK #### [facility] [address] [address] [address] Manfred BrooksSodium [Moles/Vol]145 mmol/IVamlpv026-987[facility] Comment on above:Performed By: #### BMP, HSTROPN, CK #### [facility] [address] [address] [address] Manfred Quiñones nitrogen [Mass/Vol]18.0 mg/dLNormal7.0-18.0The City HospitalComment on above:Performed By: #### BMP, HSTROPN, CK #### [facility] [address] [place] [address] Dr. Manfred Quiñones nitrogen/Creatinine [Mass ratio]23.7 mg/mgNoWexner Medical CenterComment on above:Performed By: #### FRANKLYN, HSTROPN, CK #### [facility] [address] [place] [address] Dr. Manfred Odell 02-26-7806AER Coag (PPP) [Relative time]1.08 {INR} NormalCleveland Clinic Mentor HospitalComment on above:Performed By: #### MILTON BARRIOS #### [facility] [address] [place] [address] Dr. Manfred Perez GUIDELINESSEE BELOWKindred Hospital LimaComment on above:Result Comment: DESIRED INR: 2.0 - 3.0 CONDITIONS NOT LISTED BELOW 2.5 - 3.5 FOR PROSTHETIC HEART VALVE REPLACEMENT 2.5 - 3.5 RECURRENT THROMBOSIS Performed By: #### MILTON BARRIOS #### [facility] [address] [address] [address] Manfred Cadena Coag (PPP) [Time]11.6 sNormal9.0-11.6[facility] Comment on above:Performed By: #### MILTON BARRIOS #### [facility] [address] [place] [address] Dr. Manfred Wahl 76-34-8128hUKA Coag (Bld) [Time]28.1 iUugdtl13.3-36.2The City HospitalComment on above:Performed By: #### DENIS UMICRO #### [facility] [address] [place] [address] Dr. Manfred Glaser 84-95-1281PMM4.320 uIU/mLCritically low0.358-3.740The City HospitalComment on above:Performed By: #### BMP, HSTROPN, CK #### [facility] [address] [place] [address] Dr. Manfred Edwards MICROSCOPIC KAYon 82-18-9302GGVJTOYYNSVYHAiasdnvnQTLF SEEN [facility] HospitalComaspirus [facility] on above:Performed By: #### DENIS UMICRO #### [facility] [address] [place] [address] Dr. Manfred Márquez identified Cx Nom (U)INDICATEDKindred Hospital LimaComaspirus keweenaw hospital on above:Performed By: #### DENIS UMICRO #### [facility] [address] [place] [address] Dr. Manfred Durant SEENNormalNONE SEENAdams County Regional Medical Center on above:Performed By: #### DENIS UMICRO #### [facility] [address] [place] [address] Dr. Manfred Garcia LM Nom (Urine sed)NONE SEENNormalNONE SEENCleveland Clinic Mentor HospitalComaspirus keweenaw hospital on above:Performed By: #### DENIS UMICRO #### [facility] [address] [place] [address] Dr. Shearer ChangEpithelial cells LM Ql (Urine sed)MODERATEAbnormalNONE SEEN /RARE The City HospitalComaspirus keweenaw hospital on above:Performed By: #### DENIS UMICRO #### [facility] [address] [place] [address] Dr. Manfred Donahue SEENNormalNONE SEENCleveland Clinic Mentor HospitalComaspirus keweenaw hospital on above:Performed By: #### MILTON BARRIOS #### [facility] [address] [place] [address] Dr. Manfred Marcelo SEENAbnormal0-2The City HospitalComment on above: Performed By: #### MILTON BARRIOS #### [facility] [address] [place] [address] Dr. Manfred BrooksJtxcmHJC17-99FsqqnvkyCLYB SEENThe City HospitalComment on above: Performed By: #### MILTON BARRIOS #### [facility] [address] [place] [address] Dr. Manfred BrooksXR CHEST 1 Von 94-41-8359OJ CHEST 1 VEXAM: XR CHEST 1 V HISTORY: . Headache [...] Electronically authenticated by: ALEJANDRO BLACKMAN Date: 2022-05-16 12:58[facility] LimaT3, TOTAL (TRIIODOTHYRONINE)on 05-98-0520E8, TOTAL85 ng/dL Aftojo89-547Jpa City HospitalComment on above:Performed By: #### CVDTBH #### [facility] [address] [place] [address] Dr. Manfred Avila 80-67-9480Suxdhvujaue peptide B (Bld) [Mass/Vol]486.0 pg/mL Normal<=1,800.0The City HospitalComment on above:Performed By: #### BNP, CMP #### [facility] [address] [place] [address] Dr. Manfred Campos AUTO DIFFon 84-19-0122UHWS #0.1 103/ulNormal0.0-0.1The City HospitalComment on above:Performed By: #### SUBHASH BARRIOSICRO #### [facility] [address] [place] [address] Dr. Manfred BrooksBasophils/100 WBC (Bld)1.0 %Normal0.2-2.0[facility] Comment on above:Performed By: #### ANU BARRIOSRO #### [facility] [address] [place] [address] Dr. Manfred Noguera #0.2 103/ulNormal0.0-0.7The City HospitalComment on above: Performed By: #### DENIS UMICRO #### [facility] [address] [place] [address] Dr. Manfred Richardsonosinophils/100 WBC (Bld)2.7 %Normal0.9-7.0[facility] Comment on above:Performed By: #### DENIS UMАЛЕКСАНДРRO #### [facility] [address] [place] [address] Dr. Manfred Richardsonrythrocyte distribution width (RBC) [Ratio]14.2 %Cocrmi41.0-15.0 The City HospitalComment on above:Performed By: #### ANU BARRIOSRO #### [facility] [address] [place] [address] Dr. Manfred BrooksHematocrit (Bld) [Volume fraction]38.7 %Ioqjlu33.0-48.0The City HospitalComment on above:Performed By: #### ANU BARRIOSRO #### [facility] [address] [place] [address] Dr. Manfred BrooksHemoglobin (Bld) [Mass/Vol]12.1 g/mZOzapax74.0-16.0The City HospitalComment on above:Performed By: #### ANU BARRIOSRO #### [facility] [address] [place] [address] Dr. Manfred Sherman #0.02 10e3/ulNormal0.00-0.03The City HospitalComment on above:Performed By: #### DENIS UMICRO #### [facility] [address] [place] [address] Dr. Manfred Sherman %0.3 %Normal0.0-0.5The City HospitalComment on above: Performed By: #### DENIS UMICRO #### [facility] [address] [place] [address] Dr. Manfred Chapin #2.6 103/ulNormal1.2-3.8The City HospitalComment on above:Performed By: #### DENIS UMICRO #### [facility] [address] [place] [address] Dr. Manfred Glezhocytes/100 WBC (Bld)36.7 %Zcuiyq26.5-60.0The City HospitalComment on above:Performed By: #### DENIS UMICRO #### [facility] [address] [place] [address] Dr. Manfred GreshamUAL DIFF REQNONormalThe City HospitalComment on above: Performed By: #### DENIS UMICRO #### [facility] [address] [place] [address] Dr. Manfred Woodson (RBC) [Entitic mass]29.2 auTobefa92.7-34.0The City HospitalComment on above:Performed By: #### DENIS UMICRO #### [facility] [address] [place] [address] Dr. Manfred Woodson (RBC) [Mass/Vol]31.3 g/lFKzucna37.9-35.2The City HospitalComment on above:Performed By: #### DENIS UMICRO #### [facility] [address] [place] [address] Dr. Manfred Woodson (RBC) [Entitic vol]93.5 qSQwylaw74.0-99.0The City HospitalComment on above:Performed By: #### DENIS UMICRO #### [facility] [address] [place] [address] Dr. Yilan ChangMONO #0.7 103/ulNormal0.3-0.8The City HospitalComment on above:Performed By: #### ANU BARRIOSRO #### [facility] [address] [place] [address] Dr. Manfred Morenoocytes/100 WBC (Bld)9.5 %Normal1.7-12.0[facility] Comment on above:Performed By: #### ANU BARRIOSRO #### [facility] [address] [place] [address] Dr. Manfred JaimesUT #3.5 103/ulNormal1.4-6.5The City HospitalComment on above:Performed By: #### ANU BARRIOSRO #### [facility] [address] [place] [address] Dr. Manfred Jaimesutrophils/100 WBC (Bld)49.8 %Ccynfk44.0-75.0The City HospitalComment on above:Performed By: #### ANU BARRIOSRO #### [facility] [address] [place] [address] Dr. Manfred BrooksPlatelet mean volume (Bld) [Entitic vol]10.5 fLNormal9.5-13.5The City HospitalComment on above:Performed By: #### SUBHASH BARRIOSICRO #### [facility] [address] [place] [address] Dr. Manfred BrooksPLT286 103/vpKzyyff503-362Mzh City HospitalComment on above: Performed By: #### SUBHASH BARRIOSICRO #### [facility] [address] [place] [address] Dr. Manfred BrooksRBC4.14 106/ulCritically low4.20-5.40The City HospitalComment on above:Performed By: #### DENIS UMICRO #### [facility] [address] [place] [address] Dr. Manfred BrooksWBC7.0 103/ulNormal4.0-11.0The City HospitalComment on above: Performed By: #### ERUR, UMICRO #### [facility] [address] [place], [place] [address] Dr. Manfred Leger 14-19-9470YSL<0.2Critically low0.9-2.0The City HospitalComment on above:Performed By: #### BMP, HSTROPN, CK #### [facility] [address] [place], [place] [address] Dr. Shearer ChangECHOCARDIO M/2D COMPLETEon 63-34-7470UDURYKPLQO M/2D COMPLETE Patient: BETTY CAMARENA Exam Date: 04/21/2022 : 1940 Gender:F Ordering : DR CAM CHEN . Admission #: [id number] Family : DR GLORIA SALCEDO . Order #: [id number] CLICK HERE TO VIEW EXAM ECHOCARDIOGRAM REPORT [...] No significant valvular dysfunction. Dictated by: Denisa Knapp M.D. on 04/21/2022 at 19:16 Approved by: Denisa Knapp M.D. on 04/21/2022 at 19:20[facility] LimaPROF 14(COMP METB)on 56-51-1746Mnijxxx [Mass/Vol]3.4 g/dLNormal3.4-5.0 The City HospitalComment on above:Performed By: #### BNP, CMP #### [facility] [address] [address] [address] Manfred BrooksAlbumin/Globulin [Mass ratio]1.2 {ratio}NormalThe City HospitalComment on above:Performed By: #### BNP, CMP #### [facility] [address] [place] [address] Dr. Manfred Miramontes [Catalytic activity/Vol]62 U/KOiwfds79-480Ifr City HospitalComment on above:Performed By: #### BNP, CMP #### [facility] [address] [address] [address] Manfred Pryor [Catalytic activity/Vol]24 U/PQmdcyc87-45Wzi City HospitalComment on above:Performed By: #### BNP, CMP #### [facility] [address] [address] [address] Manfred Cassidy gap [Moles/Vol]10.4 mmol/LNormalThe [facility] Comment on above:Performed By: #### BNP, CMP #### [facility] [address] [address] [address] Manfred BrooksAST [Catalytic activity/Vol]9 U/LCritically eqd26-14Sfp Community [facility] Hospitalment on above:Performed By: #### BNP, CMP #### [facility] [address] [address] [address] Manfred BrooksBilirubin [Mass/Vol]0.3 mg/dLNormal0.2-1.0[facility] Comment on above:Performed By: #### BNP, CMP #### [facility] [address] [address] [address] Manfred BrooksCalcium [Mass/Vol]8.5 mg/dLNormal8.5-10.1[facility] Comment on above:Performed By: #### BNP, CMP #### [facility] [address] [address] [address] Manfred BrooksChloride [Moles/Vol]109 mmol/LCritically ecpl73-398Qun City HospitalComment on above:Performed By: #### BNP, CMP #### [facility] [address] [place] [address] Dr. Manfred BrooksCO2 [Moles/Vol]28.5 mmol/PYewgoo55.0-32.0[facility] Comment on above:Performed By: #### BNP, CMP #### [facility] [address] [place] [address] Dr. Manfred BrooksCreatinine [Mass/Vol]0.83 mg/dLNormal0.55-1.02The City HospitalComment on above:Performed By: #### BNP, CMP #### [facility] [address] [place] [address] Dr. Manfred RichardsonGFR-AF ICELANDIC>60Normal>=60The City HospitalComaspirus keween[facility] hospital on above:Performed By: #### BNP, CMP #### [facility] [address] [place] [address] Dr. Manfred RichardsonGFR-NON AF ICELANDIC>60Normal>=60The City HospitalComment on above:Performed By: #### BNP, CMP #### [facility] [address] [place] [address] Dr. Manfred BrooksGlobulin (S) [Mass/Vol]2.8 g/dLNormalThe City HospitalComaspirus keweenaw hospital on above:Performed By: #### BNP, CMP #### [facility] [address] [place] [address] Dr. Manfred BrooksGlucose [Mass/Vol]107 mg/dLCritically hryu00-558Mmq City HospitalComment on above:Performed By: #### BNP, CMP #### [facility] [address] [place] [address] Dr. Manfred BrooksPotassium [Moles/Vol]3.9 mmol/LNormal3.5-5.1[facility] Comment on above:Performed By: #### BNP, CMP #### [facility] [address] [place] [address] Dr. Manfred BrooksProtein [Mass/Vol]6.2 g/dLCritically low6.4-8.2The City HospitalComment on above:Performed By: #### BNP, CMP #### [facility] [address] [place] [address] Dr. Manfred BrooksSodium [Moles/Vol]144 mmol/LYrztpn218-552Nmy [facility] Comment on above:Performed By: #### BNP, CMP #### [facility] [address] [place] [address] Dr. Manfred BrooksUrea nitrogen [Mass/Vol]23.0 mg/dLCritically high7.0-18.0The City HospitalComment on above:Performed By: #### BNP, CMP #### [facility] [address] [place] [address] Dr. Manfred Quiñones nitrogen/Creatinine [Mass ratio]27.7 mg/mgNormalThe City HospitalComment on above:Performed By: #### BNP, CMP #### [facility] [address] [place] [address] Dr. Manfred Avila 67-31-2366Iogzkojssls peptide B (Bld) [Mass/Vol]199.0 pg/mL Normal<=1,800.0The City HospitalComment on above:Performed By: #### ANU BARRIOSRO #### [facility] [address] [place] [address] Dr. Manfred HOLLIS 3-6on 67-95-1941WY [Catalytic activity/Vol]55 U/L Gnynjj58-436Yzx City HospitalComment on above:Performed By: #### ANU BARRIOSRO #### [facility] [address] [place] [address] Dr. Manfred Franco.CARLOS ENRIQUE [Mass/Vol]1.69 ng/mLNormal<=3.60[facility] Comment on above:Performed By: #### MILTON BARRIOS #### [facility] [address] [place] [address] Dr. Manfred GarciaOP37.5 pg/mLNormal4.0-51.3TKindred HealthcareComment on above:Result Comment: CUT-OFF POINTS HAVE BEEN ESTABLISHED BASED ON THE FOURTH UNIVERSAL DEFINITIONS OF MYOCARDIAL INFARCTION. THE UPPER REFERENCE LIMIT (URL) OF TROPONIN, DEFINED THE 99TH PERCENTILE OF cTnI DISTRIBUTION IN A REFERENCE POPULATION, HAS BEEN CONFIRMED THE DECISION THRESHOLD FOR MD DIAGNOSIS.Performed By: #### MILTON BARRIOS #### [facility] [address] [place] [address] Dr. Manfred Franco [Catalytic activity/Vol]54 U/BEhxmpn70-769EhsCleveland Clinic Mentor HospitalComment on above:Performed By: #### MILTON BARRIOS #### [facility] [address] [place] [address] Dr. Manfred Franco.CARLOS ENRIQUE [Mass/Vol]1.12 ng/mLNormal<=3.60[facility] Comment on above:Performed By: #### MILTON BARRIOS #### [facility] [address] [place] [address] Dr. Manfred Marquis27.5 pg/mLNormal4.0-51.3TKindred HealthcareComment on above:Result Comment: CUT-OFF POINTS HAVE BEEN ESTABLISHED BASED ON THE FOURTH UNIVERSAL DEFINITIONS OF MYOCARDIAL INFARCTION. THE UPPER REFERENCE LIMIT (URL) OF TROPONIN, DEFINED THE 99TH PERCENTILE OF cTnI DISTRIBUTION IN A REFERENCE POPULATION, HAS BEEN CONFIRMED THE DECISION THRESHOLD FOR MD DIAGNOSIS.Performed By: #### MILTON BARRIOS #### [facility] [address] [place] [address] Dr. Manfred HOLLIS ADMITon 50-90-2907CQ [Catalytic activity/Vol]64 U/L Qxitiz95-680TmkCleveland Clinic Mentor HospitalComment on above:Performed By: #### MILTON BARRIOS #### [facility] [address] [place] [address] Dr. Manfred Franco.MB [Mass/Vol]1.12 ng/mLNormal<=3.60[facility] Comment on above:Performed By: #### MILTON BARRIOS #### [facility] [address] [place] [address] Dr. Manfred BrooksHSTROP13.4 pg/mLNormal4.0-51.3The City HospitalComment on above:Result Comment: CUT-OFF POINTS HAVE BEEN ESTABLISHED BASED ON THE FOURTH UNIVERSAL DEFINITIONS OF MYOCARDIAL INFARCTION. THE UPPER REFERENCE LIMIT (URL) OF TROPONIN, DEFINED THE 99TH PERCENTILE OF cTnI DISTRIBUTION IN A REFERENCE POPULATION, HAS BEEN CONFIRMED THE DECISION THRESHOLD FOR MD DIAGNOSIS.Performed By: #### MILTON BARRIOS #### [facility] [address] [place] [address] Dr. Manfred HolbrookO38 ng/mLNormal9-82The City HospitalComment on above: Performed By: #### MILTON BARRIOS #### [facility] [address] [place] [address] Dr. Manfred Campos AUTO DIFFon 11-69-2869TIOO #0.1 103/ulNormal0.0-0.1The City HospitalComment on above:Performed By: #### MILTON BARRIOS #### [facility] [address] [place] [address] Dr. Manfred BrooksBasophils/100 WBC (Bld)1.0 %Normal0.2-2.0[facility] Comment on above:Performed By: #### MILTON BARRIOS #### [facility] [address] [place] [address] Dr. Manfred Noguera #0.2 103/ulNormal0.0-0.7The City HospitalComment on above: Performed By: #### MILTON BARRIOS #### [facility] [address] [place] [address] Dr. Manfred Richardsonosinophils/100 WBC (Bld)1.8 %Normal0.9-7.0[facility] Comment on above:Performed By: #### MILTON BARRIOS #### [facility] [address] [place] [address] Dr. Manfred Richardsonrythrocyte distribution width (RBC) [Ratio]14.2 %Bukguh62.0-15.0 The City HospitalComment on above:Performed By: #### ANU BARRIOSRO #### [facility] [address] [place] [address] Dr. Manfred BrooksHematocrit (Bld) [Volume fraction]43.5 %Wphqyr13.0-48.0The City HospitalComment on above:Performed By: #### MILTON BARRIOS #### [facility] [address] [place] [address] Dr. Manfred BrooksHemoglobin (Bld) [Mass/Vol]13.9 g/iHMexpjs19.0-16.0The City HospitalComment on above:Performed By: #### MILTON BARRIOS #### [facility] [address] [place] [address] Dr. Manfred Sherman #0.03 10e3/ulNormal0.00-0.03The [facility] Hospitalment on above:Performed By: #### MILTON BARRIOS #### [facility] [address] [place] [address] Dr. Manfred BrooksIG %0.3 %Normal0.0-0.5The City HospitalComment on above: Performed By: #### MILTON BARRIOS #### [facility] [address] [place] [address] Dr. Manfred EmersonMPDora #2.6 103/ulNormal1.2-3.8The City HospitalComment on above:Performed By: #### MILTON BARRIOS #### [facility] [address] [place] [address] Dr. Manfred Emersonmphocytes/100 WBC (Bld)29.8 %Przbbn34.5-60.0The City HospitalComment on above:Performed By: #### ERUR, UMICRO #### [facility] [address] [place] [address] Dr. Manfred Greene DIFF REQNONormalThe City HospitalComment on above: Performed By: #### DENIS UMICRO #### [facility] [address] [place] [address] Dr. Manfred Woodson (RBC) [Entitic mass]29.7 vsSyhfqv03.7-34.0The [facility] HospitalComment on above:Performed By: #### DENIS UMICRO #### [facility] [address] [place] [address] Dr. Manfred Woodson (RBC) [Mass/Vol]32.0 g/tYXpgyhw94.9-35.2The [facility] HospitalComment on above:Performed By: #### DENIS UMICRO #### [facility] [address] [place] [address] Dr. Manfred Woodson (RBC) [Entitic vol]92.9 dGNzzakz19.0-99.0The [facility] HospitalComment on above:Performed By: #### DENIS UMICRO #### [facility] [address] [place] [address] Dr. Manfred Mazariegos #0.8 103/ulNormal0.3-0.8The City HospitalComment on above:Performed By: #### DENIS UMICRO #### [facility] [address] [place] [address] Dr. Manfred Morenoocytes/100 WBC (Bld)9.6 %Normal1.7-12.0[facility] Comment on above:Performed By: #### DENIS UMICRO #### [facility] [address] [place] [address] Dr. Manfred Hahn #5.0 103/ulNormal1.4-6.5The City HospitalComment on above:Performed By: #### DENIS UMICRO #### [facility] [address] [place] [address] Dr. Manfred Jaimesutrophils/100 WBC (Bld)57.5 %Kgpnuy92.0-75.0The City HospitalComment on above:Performed By: #### DENIS, UMICRO #### [facility] [address] [place] [address] Dr. Manfred BrooksPlatelet mean volume (Bld) [Entitic vol]10.1 fLNormal9.5-13.5The City HospitalComment on above:Performed By: #### DENIS, UMICRO #### [facility] [address] [place] [address] Dr. Manfred BrooksPLT354 103/jeSnvywf506-883Blg City HospitalComment on above: Performed By: #### DENIS UMICRO #### [facility] [address] [place] [address] Dr. Manfred BrooksRBC4.68 106/ulNormal4.20-5.40The City HospitalComment on above:Performed By: #### DENIS, ICRO #### [facility] [address] [place] [address] Dr. Manfred BrooksWBC8.8 103/ulNormal4.0-11.0The City HospitalComment on above: Performed By: #### DENIS, ICRO #### [facility] [address] [place] [address] Dr. Manfred BrooksCUSHANIA URINEon 93-33-1866RXWNNLD URINECulture Observations: LIGHT GROWTH OF MIXED GENITAL BETO. NO POTENTIAL PATHOGENS SEEN.NormalThe City HospitalComment on above:Performed By: #### BMP, HSTROPN, CK #### [facility] [address] [place] [address] Dr. Manfred BrooksCovid-19 PCR (CVDTB)on 17-16-0466XTKU-CoV-2 (COVID-19) RNA DAMIR+probe Ql (Unsp spec)Not detectedNormalNOT DETECTEDThe [facility] Comment on above:Result Comment: When diagnostic testing is negative, the [...] for this test is supported by the Insulation Manager of Health and Human Service's declaration that circumstances exist to justify the emergency use of in vitro diagnostics for the detection and/or diagnosis of the virus that causes COVID-19. This EUA will remain in effect for the duration of the COVID-19 declaration justifying emergency of IVDs, unless it is terminated or revoked by the FDA (after which the test may no longer be used).Performed By: #### JAMILAH ESTES, CK #### [facility] [address] [place] [address] Dr. Manfred Monrdagonon 28-58-2336C-DIMER0.35 mg/L FEUNormal<=0.59The [facility] Hospitalment on above:Performed By: #### MILTON BARRIOS #### [facility] [address] [place] [address] Dr. Manfred Mondragon [facility] on above:Result Comment: Increases in D-Dimer concentration observed with thromboembolic events [...] and generalized hospitalization. Performed By: #### ANU BARRIOSRO #### [facility] [address] [place] [address] Dr. Manfred BrooksPROEric CHEM 8 (BAS METB)on 96-57-1499Onrxa gap [Moles/Vol]14.1 mmol/LNormalThe Community Memorial Hospitalment on above:Performed By: #### DENIS UMICRO #### [facility] [address] [address] [address] Manfred BrooksCalcium [Mass/Vol]9.3 mg/dLNormal8.5-10.1[facility] Comment on above:Performed By: #### DENIS UMICRO #### [facility] [address] [address] [address] Manfred BrooksChloride [Moles/Vol]107 mmol/CAbffax12-019[facility] Comment on above:Performed By: #### DENIS UMICRO #### [facility] [address] [address] [address] Manfred BrooksCO2 [Moles/Vol]27.8 mmol/ZClfxwp58.0-32.0[facility] Comment on above:Performed By: #### DENIS UMICRO #### [facility] [address] [address] [address] Manfred BrooksCreatinine [Mass/Vol]0.89 mg/dLNormal0.55-1.02The City HospitalComment on above:Performed By: #### DENIS UMICRO #### [facility] [address] [address] [address] Manfred RichardsonGFR-AF ICELANDIC>60Normal>=60The City HospitalComment on above:Performed By: #### DENIS UMICRO #### [facility] [address] [address] [address] Manfred RichardsonGFR-NON AF ICELANDIC>60Normal>=60The City HospitalComment on above:Performed By: #### ERUAlin UMICRO #### [facility] [address] [address] [address] Manfred BrooksGlucose [Mass/Vol]129 mg/dLCritically hdmb67-194Twa City HospitalComment on above:Performed By: #### ERUAiln, UMICRO #### [facility] [address] [address] [address] Manfred BrooksPotassium [Moles/Vol]3.9 mmol/LNormal3.5-5.1[facility] Comment on above:Performed By: #### ANU BARRIOSRO #### [facility] [address] [place] [address] Dr. Manfred Blockum [Moles/Vol]145 mmol/WDwliyg790-202[facility] Comment on above:Performed By: #### ANU BARRIOSRO #### [facility] [address] [place] [address] Dr. Manfred BrooksUrea nitrogen [Mass/Vol]28.0 mg/dLCritically high7.0-18.0The City HospitalComment on above:Performed By: #### MILTON BARRIOS #### [facility] [address] [place] [address] Dr. Manfred Quiñones nitrogen/Creatinine [Mass ratio]31.5 mg/mgNormalThe City HospitalComment on above:Performed By: #### ANU BARRIOSRO #### [facility] [address] [place] [address] Dr. Manfred Mckeon4on 18-59-5877M6 [Mass/Vol]8.10 ug/dLNormal4.80-13.90The City HospitalComment on above:Performed By: #### BNP, CMP #### [facility] [address] [place] [address] Dr. Manfred DeHozachary 98-79-2280LYZ2.918 uIU/mLNormal0.358-3.740The City HospitalComment on above:Performed By: #### BNP, CMP #### [facility] [address] [place] [address] Dr. Manfred Gooden RANDOM W/MICROSCOPICon 28-26-5083LSBNEPVXROYQLBmulwmyqOXNV SEENThe City HospitalComment on above:Performed By: #### CVDTBH #### [facility] [address] [place] [address] Dr. Manfred BrooksBilirubin Ql (U)NegativeNormalNEGATIVEThe [facility] Comment on above:Performed By: #### CVDTBH #### [facility] [address] [address] [address] Manfred BrooksCASTSEENAbnormalNONE SEENCleveland Clinic Mentor HospitalComment on above: Performed By: #### CVDTBH #### [facility] [address] [address] [address] Manfred Pottsarity (U)CLEARNormalCLEARCleveland Clinic Mentor HospitalComment on above: Performed By: #### CVDTBH #### [facility] [address] [address] [address] Manfred Mejia (U)LT. YELLOWNormalYELLOWCleveland Clinic Mentor HospitalComment on above:Performed By: #### CVDTBH #### [facility] [address] [place] [address] Dr. Manfred BrooksCrystals LM Nom (Urine sed)NONE SEENNormalNONE SEENCleveland Clinic Mentor HospitalComment on above:Performed By: #### CVDTBH #### [facility] [address] [place] [address] Dr. Shearer ChangEpithelial cells LM Ql (Urine sed)MODERATEAbnormalNONE SEEN /RARE The City HospitalComment on above:Performed By: #### CVDTBH #### [facility] [address] [place] [address] Dr. Manfred BrooksGlucose Ql (U)NegativeNormalNEGATIVECleveland Clinic Mentor HospitalComment on above:Performed By: #### CVDTBH #### [facility] [address] [address] [address] Manfred BrooksHemoglobin Ql (U)NegativeNormalNEGATIVEFairfield Medical Center on above:Performed By: #### CVDTBH #### [facility] [address] [place] [address] Dr. Manfred BrooksHYALINE CASTRARENormalCleveland Clinic Mentor HospitalComment on above: Performed By: #### CVDTBH #### [facility] [address] [place] [address] Dr. Manfred BrooksKetones Ql (U)NegativeNormalNEGATIVECleveland Clinic Mentor HospitalComment on above:Performed By: #### CVDTBH #### [facility] [address] [address] [address] Manfred BrooksLEUKOCYTESTRACEAbnormalNEGATIVEThe City HospitalComment on above:Performed By: #### CVDTBH #### [facility] [address] [address] [address] Manfred GravesCOUSTRACEAbnormalNONE SEENThe City HospitalComment on above:Performed By: #### CVDTBH #### [facility] [address] [place] [address] Dr. Manfred Wildertrite Ql (U)NegativeNormalNEGATIVEThe City HospitalComment on above:Performed By: #### CVDTBH #### [facility] [address] [place] [address] Dr. Manfred BrookspH (U)5.0 [pH]Normal5-9The City HospitalComment on above: Performed By: #### CVDTBH #### [facility] [address] [place] [address] Dr. Manfred BrooksRBCNONE SEENAbnormal0-2[facility] on above: Performed By: #### CVDTBH #### [facility] [address] [place] [address] Dr. Manfred BrooksSPEC GRAVITY>=1.647Ltemxrpt6.005-<=1.025[facility] Comment on above:Performed By: #### CVDTBH #### [facility] [address] [place] [address] Dr. Manfred Gooden PROTEINNegativeNormalNEGATIVE/ TRACEThe [facility] Comment on above:Performed By: #### CVDTBH #### [facility] [address] [place] [address] Dr. Manfred BrooksUrobilinogen Qn (U)0.2 {Antionette'U}/dLNormal0.2 - 1.0The City HospitalComment on above:Performed By: #### CVDTBH #### [facility] [address] [place] [address] Dr. Manfred BrooksWBC2-5AbnormalNONE SEENCleveland Clinic Mentor HospitalComment on above: Performed By: #### CVDTBH #### [facility] [address] [place] [address] Dr. Manfred BrooksXR CHEST 1 Von [id number] CHEST 1 VEXAM: XR CHEST 1 V INDICATION: Shortness of breath. Weakness, elevated blood pressure. COMPARISON: 06/12/2021 TECHNIQUE: Single frontal view of the chest FINDINGS: Normal cardiomediastinal contours. Clear lungs. No pleural effusion or pneumothorax. No acute osseous abnormality. IMPRESSION: No acute cardiopulmonary process. Electronically authenticated by: CHE JACOBS Date: 2022-04-20 07:57NoWexner Medical CenterINSULINon 72-23-9742Bradxkl14.9 uIU/mLNormal2.6-24.9The City HospitalComment on above:Performed By: #### CVDTBH #### [facility] [address] [place] [address] Dr. Manfred Avila [id number] peptide B (Bld) [Mass/Vol]197.0 pg/mL Normal<=1,800.0The City HospitalComment on above:Performed By: #### MILTON BARRIOS #### [facility] [address] [place] [address] Dr. Manfred Campos AUTO DIFFon [id number] #0.1 103/ulNormal0.0-0.1The City HospitalComment on above:Performed By: #### CBC #### [facility] [address] [place] [address] Dr. Manfred BrooksBasophils/100 WBC (Bld)1.2 %Normal0.2-2.0[facility] Comment on above:Performed By: #### CBC #### [facility] [address] [place] [address] Dr. Manfred Noguera #0.1 103/ulNormal0.0-0.7The City HospitalComment on above: Performed By: #### CBC #### [facility] [address] [address] [address] Manfred Richardsonosinophils/100 WBC (Bld)2.1 %Normal0.9-7.0[facility] on above:Performed By: #### CBC #### [facility] [address] [place] [address] Dr. Manfred Richardsonrythrocyte distribution width (RBC) [Ratio]14.5 %Rdvlgm91.0-15.0 The City HospitalComment on above:Performed By: #### CBC #### [facility] [address] [place] [address] Dr. Manfred BrooksHematocrit (Bld) [Volume fraction]42.4 %Bcclhy48.0-48.0The City HospitalComment on above:Performed By: #### CBC #### [facility] [address] [place] [address] Dr. Manfred BrooksHemoglobin (Bld) [Mass/Vol]13.4 g/mTCgzchc85.0-16.0The [facility] Hospitalment on above:Performed By: #### CBC #### [facility] [address] [place] [address] Dr. Manfred Sherman #0.02 10e3/ulNormal0.00-0.03The [facility] Hospitalment on above:Performed By: #### CBC #### [facility] [address] [place] [address] Dr. Manfred Sherman %0.3 %Normal0.0-0.5The [facility] Hospitalment on above: Performed By: #### CBC #### [facility] [address] [place] [address] Dr. Manfred GlezH #2.2 103/ulNormal1.2-3.8The City HospitalComment on above:Performed By: #### CBC #### [facility] [address] [place] [address] Dr. Manfred Emersonmphocytes/100 WBC (Bld)35.6 %Vyohmo47.5-60.0The [facility] HospitalComment on above:Performed By: #### CBC #### [facility] [address] [address] [address] Manfred Greene DIFF REQNONormalThe City HospitalComment on above: Performed By: #### CBC #### [facility] [address] [place] [address] Dr. Manfred Woodson (RBC) [Entitic mass]29.6 gnCyvnlz25.7-34.0The [facility] HospitalComment on above:Performed By: #### CBC #### [facility] [address] [place] [address] Dr. Manfred Woodson (RBC) [Mass/Vol]31.6 g/oHNgizin72.9-35.2The City HospitalComment on above:Performed By: #### CBC #### [facility] [address] [place] [address] Dr. Manfred Woodson (RBC) [Entitic vol]93.8 uZDjreon93.0-99.0The City HospitalComment on above:Performed By: #### CBC #### [facility] [address] [place] [address] Dr. Manfred Mazariegos #0.6 103/ulNormal0.3-0.8The City HospitalComment on above:Performed By: #### CBC #### [facility] [address] [place] [address] Dr. Manfred Morenoocytes/100 WBC (Bld)10.4 %Normal1.7-12.0[facility] Comment on above:Performed By: #### CBC #### [facility] [address] [place] [address] Dr. Manfred Hahn #3.1 103/ulNormal1.4-6.5The City HospitalComment on above:Performed By: #### CBC #### [facility] [address] [place] [address] Dr. Manfred Jaimesutrophils/100 WBC (Bld)50.4 %Oakkqg05.0-75.0The City HospitalComment on above:Performed By: #### CBC #### [facility] [address] [address] [address] Manfred BrooksPlatelet mean volume (Bld) [Entitic vol]10.1 fLNormal9.5-13.5The City HospitalComment on above:Performed By: #### CBC #### [facility] [address] [address] [address] Manfred NevarezT310 103/niMvbnwm960-872Lxl City HospitalComment on above: Performed By: #### CBC #### [facility] [address] [address] [address] Manfred BrooksRBC4.52 106/ulNormal4.20-5.40The City HospitalComment on above:Performed By: #### CBC #### [facility] [address] [address] [address] Manfred BrooksWBC6.1 103/ulNormal4.0-11.0[facility] HospitalComment on above: Performed By: #### CBC #### [facility] [address] [address] [address] Manfred Link THYROXINE INDEX T7on 87-90-4897WZX7.16NormalThOhioHealth Dublin Methodist HospitalComment on above:Performed By: #### BMP, HSTROPN, CK #### [facility] [address] [address] [address] Manfred BrooksT3U36.0 %Jsepbg73.5-40.5The City HospitalComment on above: Performed By: #### BMP, HSTROPN, CK #### [facility] [address] [address] [address] Manfred BrooksT4 [Mass/Vol]6.00 ug/dLNormal4.80-13.90The [facility] on above:Performed By: #### BMP, HSTROPN, CK #### [facility] [address] [address] [address] Manfred BrooksGLYCOHEMOGLOBIN A1Con 63-19-0410TAA RECOMMENDATIONSEE BELOWNormal The City HospitalComment on above:Result Comment: ADA RECOMMENDED LIMIT 4.0 - 6.0 ADA THERAPEUTIC TARGET < 7.0 ACTION SUGGESTED > 7.0Performed By: #### BMP, HSTROPN, CK #### [facility] [address] [address] [address] Manfred BrooksGlucose [Mass/Vol]114 mg/dLNoWexner Medical CenterComment on above:Performed By: #### BMP, HSTROPN, CK #### [facility] [address] [address] [address] Manfred BrooksHbA1c (Bld) [Mass fraction]5.6 %Normal4.5-6.2The City HospitalComment on above:Performed By: #### FRANKLYN HSTROPZachary, CK #### [facility] [address] [address] [address] Manfred Chan 49-55-0478Sijz [Mass/Vol]79.0 ug/tPOldchu50.0-170.0The City HospitalComment on above:Performed By: #### MILTON BARRIOS #### [facility] [address] [place] [address] Dr. Manfred BrooksLIPID PROFILEon [id number]-HDL RATIO NORMSEE BELOWKindred Hospital LimaComment on above:Result Comment: 3.3 - 4.4 LOW RISK 4.4 - 7.1 AVERAGE RISK 7.1 - 11.0 MODERATE RISK >11.0 HIGH RISKPerformed By: #### DENIS UMICRO #### [facility] [address] [place] [address] Dr. Manfred BrooksCholesterol [Mass/Vol]134 mg/dLNormal<=200[facility] Comment on above:Performed By: #### DENIS UMICRO #### [facility] [address] [place] [address] Dr. Manfred BrooksCholesterol in HDL [Mass/Vol]41 mg/jDZzldeo63-73Xsz [facility] on above:Performed By: #### DENIS UMICRO #### [facility] [address] [address] [address] Manfred BrooksCholesterol in LDL [Mass/Vol]62.0 mg/dLDetwiler Memorial Hospital on above:Performed By: #### DENIS UMICRO #### [facility] [address] [place] [address] Dr. Manfred Kwong.total/Cholesterol in HDL [Mass ratio]3.3 {ratio} NormalThe City HospitalComaspirus keweenaw hospital on above:Performed By: #### DENIS UMICRO #### [facility] [address] [place] [address] Dr. Manfred Frank NORMAL> or = 60 mg/dl - LOW CARDIOVASCULAR RISK <40 mg/dl - HIGH CARDIOVASCULAR RISKNoWexner Medical CenterComaspirus keweenaw hospital on above:Performed By: #### DENIS UMICRO #### [facility] [address] [place] [address] Dr. Manfred Silver CALC NORMALSEE BELOWKindred Hospital LimaComaspirus keweenaw hospital on above:Result Comment: <100 mg/dl OPTIMAL 100 - 129 mg/dl NEAR OR ABOVE OPTIMAL 130 - 159 mg/dl BORDERLINE HIGH 160 - 189 mg/dl HIGH >190 mg/dl VERY HIGH Performed By: #### DENIS UMICRO #### [facility] [address] [place] [address] Dr. Manfred BrooksTriglyceride [Mass/Vol]155 mg/dLCritically high<=150The [facility] on above:Performed By: #### DENIS UMICRO #### [facility] [address] [place] [address] Dr. Manfred BrooksVLDL CALC31.0 mg/dLKindred Hospital LimaComaspirus keweenaw hospital on above: Performed By: #### DENIS UMICRO #### [facility] [address] [place] [address] Dr. Manfred BrooksPROF 14(COMP METB)on 32-94-7025Fizopvk [Mass/Vol]3.9 g/dLNormal 3.4-5.0The City HospitalComment on above:Performed By: #### BMP, HSTROPN, CK #### [facility] [address] [place] [address] Dr. Manfred BrooksAlbumin/Globulin [Mass ratio]1.2 {ratio}NormalThe City HospitalComment on above:Performed By: #### BMP, HSTROPN, CK #### [facility] [address] [place] [address] Dr. Manfred StaffordP [Catalytic activity/Vol]63 U/MImvjbs71-910Fvp City HospitalComment on above:Performed By: #### BMP, HSTROPN, CK #### [facility] [address] [place] [address] Dr. Manfred StaffordT [Catalytic activity/Vol]25 U/BEazhxo77-75Vij City HospitalComment on above:Performed By: #### BMP, HSTROPN, CK #### [facility] [address] [place] [address] Dr. Manfred Cassidy gap [Moles/Vol]10.8 mmol/LNormalC[facility] Clinic [facility] Comment on above:Performed By: #### BMP, HSTROPN, CK #### [facility] [address] [place] [address] Dr. Manfred BrooksAST [Catalytic activity/Vol]14 U/LCritically kji27-31Kqx [facility] Hospitalment on above:Performed By: #### BMP, HSTROPN, CK #### [facility] [address] [place] [address] Dr. Manfred BrooksBilirubin [Mass/Vol]0.6 mg/dLNormal0.2-1.0[facility] Comment on above:Performed By: #### BMP, HSTROPN, CK #### [facility] [address] [place] [address] Dr. Manfred BrooksCalcium [Mass/Vol]8.6 mg/dLNormal8.5-10.1[facility] Comment on above:Performed By: #### BMP, HSTROPN, CK #### [facility] [address] [address] [address] Manfred BrooksChloride [Moles/Vol]104 mmol/BAjrrbf96-680Rww [facility] Comment on above:Performed By: #### BMP, HSTROPN, CK #### [facility] [address] [address] [address] Manfred BrooksCO2 [Moles/Vol]31.5 mmol/GJsyocx10.0-32.0[facility] Comment on above:Performed By: #### BMP, HSTROPN, CK #### [facility] [address] [place] [address] Dr. Manfred BrooksCreatinine [Mass/Vol]0.67 mg/dLNormal0.55-1.02[facility] HospitalComment on above:Performed By: #### BMP, HSTROPN, CK #### [facility] [address] [address] [address] Manfred RichardsonGFR-AF ICELANDIC>60Normal>=60The City HospitalComment on above:Performed By: #### BMP, HSTROPN, CK #### [facility] [address] [place] [address] Dr. Manfred Gomez-NON AF ICELANDIC>60Normal>=60[facility] HospitalComment on above:Performed By: #### BMP, HSTROPN, CK #### [facility] [address] [address] [address] Manfred BrooksGlobulin (S) [Mass/Vol]3.2 g/dLNormalThe City HospitalComment on above:Performed By: #### BMP, HSTROPN, CK #### [facility] [address] [place] [address] Dr. Manfred BrooksGlucose [Mass/Vol]102 mg/gXTyvuhj72-993JtxCleveland Clinic [facility] Hospital Comment on above:Performed By: #### BMP, HSTROPN, CK #### [facility] [address] [place] [address] Dr. Manfred BrooksPotassium [Moles/Vol]4.3 mmol/LNormal3.5-5.1[facility] Comment on above:Performed By: #### BMP, HSTROPN, CK #### [facility] [address] [address] [address] Manfred BrooksProtein [Mass/Vol]7.1 g/dLNormal6.1-8.2[facility] Comment on above:Performed By: #### BMP, HSTROPN, CK #### [facility] [address] [address] [address] Manfred BrooksSodium [Moles/Vol]142 mmol/LNikxlb318-593Xwp [facility] Comment on above:Performed By: #### BMP, HSTROPN, CK #### [facility] [address] [place] [address] Dr. Manfred BrooksUrea nitrogen [Mass/Vol]19.0 mg/dLCritically high7.0-18.0[facility] HospitalComment on above:Performed By: #### BMP, HSTROPN, CK #### [facility] [address] [address] [address] Manfred Quiñones nitrogen/Creatinine [Mass ratio]28.4 mg/mgNoWexner Medical CenterComment on above:Performed By: #### BMP, HSTROPN, CK #### [facility] [address] [place] [address] Dr. Manfred Glaser 46-22-7162BDB1.317 uIU/mLCritically low0.470-4.680C[facility] Mentor HospitalComment on above:Performed By: #### BMP, HSTROPN, CK #### [facility] [address] [place] [address] Dr. Manfred STONEAdena Fayette Medical CenterComment on above: Result Comment: <0.34 UIU/ml HYPERTHYROID 0.34-5.60 UIU/ml EUTHYROID >5.60 UIU/ml HYPOTHYROIDPerformed By: #### BMP, HSTROPN, CK #### [facility] [address] [address] [address] Manfred BrooksVITAMIN D 25 OHon 71-91-2405HDT D 25-OH35.9 ng/mLNMarymount HospitalComaspirus keweenaw hospital on above:Performed By: #### MILTON BARRIOS #### [facility] [address] [address] [address] Manfred Morrissey RANGESSEE BELOWKindred Hospital LimaComment on above: Result Comment: <20 ng/mL Vit D deficient 20 - <30 ng/mL Vit D insufficient 30 - 100 ng/mL Vit D sufficient >100 ng/mL Potential ToxicityPerformed By: #### ANU BARRIOSRO #### [facility] [address] [place] [address] Dr. Manfred BrooksAmbulatory Clinical Summaryon [id number] Clinical Summary{[id number]}CD:[id number] State Health SystemGeneral Surgery Office/Clinic Noteon 71-05-5213Gpddwzb Surgery Office/Clinic NoteChief Complaint post operative follow up HPI Staff [...] swallowing difficulties, no hearing loss, no ear infection(s),no nose bleeds. Cardiovascular: normal blood pressure, no [...] JEM Acevedo Only if needed [address] [place] [address]- Additional Instructions: Problem List/Past Medical [...] Screening colonoscopy (10/12/2008), Hysterectomy (10/12/2003), Cholecystectomy (10/12/1969), Repairof umbilical hernia. Medications ASPIRIN atorvastatin 10 mg [...] Recorded SARS-CoV-2 (COVID-19) mRNA BNT-162b2 vax 11/30/2020 RecordedNoAshtabula General HospitalComment on above:Result Comment: Electronically Signed By: IZZY REYES, Salvatore River\Date and Time Signed: 04/16/21 13:20 EDTPathology Noteon 34-70-8749Pwcdxjzaw [id number]:127 [facility] SystemAmbulatory Clinical Summaryon 04-09-2021 Ambulatory Clinical Summary {[id number]}CD:[id number] State Health SystemProvider Letter [facility] [place] 70-15-4944Ojaoejhm Letter [facility] [address], [address] [place] [address] Re: BETTY CAMARENA Date of : 1940 Thank you for your referral of Betty Camarena who was seen on consultation on March 21, 2021, for twomoles on right cheek. An excisional biopsy is planned. I have enclosed my consultation note for your review. I will be happy to follow Betty. Sincerely, Salvatore Moore MD General SurgeryOhio State Health SystemAmbulatory Clinical Summaryon [id number] Clinical Summary {[id number]}CD:[id number] State Health SystemPatient Educationon 35-75-4510Ftkfhvq EducationPhysical Medicine and Rehabilitation Exercising to Lose Weight Exercise is structured, repetitive physical activity to improve fitness and health. Getting regularexercise is important for everyone. It is especially important if you are overweight. Being overweight increases your risk of heart disease, stroke, diabetes, high blood pressure, and several types of cancer. Reducing your calorie intake and exercising can help you lose weight. Exercise is usually categorized as moderate or vigorous intensity. To lose weight, most people needto do a certain amount of moderate-intensity or [...] you eat, you lose weight. Exercise also reducesbody fat and builds muscle. The more muscle [...] you need and what types of activities aresafe for you. What actions can I take to lose weight? Nutrition ? Make changes to your diet as told by your health care provider or diet and nutrition therapist (dietitian). This may include: ? Eating fewer [...] goals. Your health care provider can help youmake an exercise plan that works for you. [...] heart disease, stroke, diabetes, high blood pressure, andseveral types of cancer. ? Losing weight koehler (more content not included)...NormalEcu Health Chowan Hospitalrafaela [facility] HospitalPhysician Referralon 32-98-7481Ttddqfbzs Referral [id number]:127NormalEcu Health Chowan Hospitalrafaela [facility] HospitalCardiovascular Lab Reporton [id number] Lab ReportUnWVUMedicine [facility] MR #: [id number] Physician: Denisa Pitt of Navya Knapp Medicine Service Date: 04/16/2020 Division of Birthdate: 1940 Cardiology Room #: [facility] Cardiovascular Services [place] [address] Cardiovascular Laboratory Report INDICATION: The patient is [...] informed consent. 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 The left wrist area was prepped and draped in the usual fashion. Modified Raleigh's test was favorable on the left. Access in the left radial artery was obtained using micropuncture technique and ultrasound guidance. A 6-Lao x 11 cm Hydrophilic sheath was advanced. Verapamil was given through the sheath and heparin was administered intravenously. The JR4 diagnostic catheter was advanced over the angled Glidewire into the left ventricular cavity and used to perform left heart catheterization with measurement of pressures. Pullback across the aortic valve was performed with measurement of pressures. Bilateral selective coronary angiography was then performed using 6-Lao JL4 and JR4 diagnostic catheters. Catheters were [...] 40% proximal stenosis. SUMMARY OF FINDINGS: 1. Gkpr-os-rxkzdmiw 2-vessel coronary artery disease with 30% mid LAD, 20% mid RCA, 40% distal RCA, 40% proximal PDA stenosis, but no occlusive disease and minimal disease in the circumflex vessel. 2. Wbcbgqkb-jh-fhwabn elevation of LVEDP. 3. Uncontrolled systemic hypertension. [...] in 1 month. Electronically Signed by: Denisa Knapp M.D. 04/22/2020 10:09 A Denisa Knapp M.D. Date Dict: 04/16/2020/02:07 P/Denisa Knapp M.D. Date Trans: 04/17/2020 09:09 A/anna DN_JN:[id number] cc: Cam Chen M.D. [address] [place]orden [facility] [address]SudpylHxqTrinity Health [facility] Encounters Encounter DateEncounter TypeCare ProviderFacilityStart: 07-24-2025 End: 73-54-4733ihgzrpqxsyDFOA [facility]: 07-07-2025 End: 11-42-3488lzbmjlnvlsVWXT [facility]art: 12-26-2024 End: 76-76-7292vctkbzwolqCTGRCD [facility] Start: 01-19-2023 End: 45-17-1530gddtlfzgxzTXXCC BARAZIFacility:L4Ldyiv: 01-09-2023 End: 56-33-7567amyzehaqcvIQ PERRY ALEJO .Facility:T9Znsym: 01-06-2023 End: 02-21-7637vngjiqtwrpHB CAM APRIL .Facility:P2Mmcyd: 12-31-2022 End: 44-02-4315jytwaqqmmtKVVULDW BOESFacility:K6Spixa: 12-11-2022 End: 13-10-3332laeihvfjywUI CAM APRIL .Facility:L3Ahakn: 05-16-2022 End: 08-12-9722ytcbefpvtkTparmt ZieberFacility:O9Cqews: 04-20-2022 End: 78-27-3102oznghlrqhkTS GLORIA A NADERERFacility:H5Bxefb: 02-04-2022 End: 36-22-3741iqelpuschzTN CAM CHEN .Facility:Z1Xqyky: 04-16-2020 End: 15-43-4367Asehovc encounter procedurePROVIDER UNKNOWNFacility:RUST Payers DatePayer CategoryPayerPolicy [id number] 1958Private Health [id number] Health [id number] [id number] [id number] 2.1.947618.3.57[id number] 2.1.768371.3.57[id number] 2.16.840.1.966725.3.57[id number] 2.16.840.1.590112.3.57[id number] 2.16.840.1.745953.3.57[id number] 2.16.840.1.272517.3.5[id number] 2.16.840.1.606348.3.57[id number] 2.16.840.1.096314.3.579.2.593 Progress note 07-24-2025 Note Date & UyzdChqgFknmddjr49-59-3691 NoteSUBJECTIVE Reason for Visit: Betty Camarena is a 84 y.o. year old female patient being seen for 3 weeks follow-up visit. HPI: Betty Camarena is a 84 y.o. [...] systolic. 12/16/2024 office visit (Dr. Knapp): Betty Camarena is a 84 y.o. year old female patient being seen for 1 year follow up CAD, PAF, hypertension, chronic diastolic heart failure, and carotid artery stenosis. She had routine labs with lipid panel in March 2024. Patient presented to [facility] ED last month for chest pain. [...] except for a low TSH that Dr. Chen was made aware of - she was [...] A DAY ergocalciferol (Vitamin D-2) 1.25 MG (04628 Units) capsule Vitamin D furosemide (LASIX) 20 [...] TAKE TWO TABLETS BY MOUTH IN THE MORNIN (more content not included)...[facility] Progress note 07-07-2025 Note Date & ZpnkGwyvAtpsidzv52-12-4828 NoteSUBJECTIVE Reason for Visit: Betty Camarena is a [...] systolic. 12/16/2024 office visit (Dr. Knapp): Betty Camarena is a 84 y.o. year old female patient being seen for 1 year follow up CAD, PAF, hypertension, chronic diastolic heart failure, and carotid artery stenosis. She had routine labs with lipid panel in March 2024. Patient presented to [facility] ED last month for chest pain. [...] except for a low TSH that Dr. Chen was made aware of - she was [...] A DAY ergocalciferol (Vitamin D-2) 1.25 MG (49104 Units) capsule Vitamin D furosemide (LASIX) 20 [...] visits with results with (more content not included)...[facility] Progress note 12-26-2024 Note Date & YvtvTcynQbkreivi45-53-3078 NoteUT Cardiology - [facility] Subjective Betty Camarena is a 84 y.o. year old female patient being seen for 1 year follow up CAD, PAF, hypertension, chronic diastolic heart failure, and carotid artery stenosis. She had routine labs with lipid panel in March 2024. Patient presented to [facility] ED last month for chest pain. She says she made the mistake of lifting a heavy object. C/o more frequent episodes of palpitations, usually occurring at night when she lies down. Denies chest pain, LE edema, and bleeding on Eliquis. Says her BP at home today was 136/72. Patient Active Problem List Diagnosis Coronary artery disease involving [place] coronary artery of [place] heart without angina pectoris Chronic diastolic heart [...] [facility], fever and was [...] , Rfl: ergocalciferol (Vitamin D-2) 1.25 MG (87825 Units) capsule, Vitamin D, Disp: , Rfl: [...] tablet (100 mg) b (more content not included)...[facility] Clinical Note 04-09-2021 Note Date & NtfzHikzIejelbuf89-58-7117 NoteHPI Staff Presents for excisional biopsy form right cheek and left chest wall. Last evaluation 03/21/21. History of Present Illness no change in lesions since recent evaluation. Review of Systems ROS - Provider Constitutional: no fever, no sweats, no weight loss. Eyes: no glasses, no blurred vision, no visual loss. ENMT: no dentures, no hoarseness, no swallowing difficulties, no hearing loss, no ear infection(s),no nose bleeds. Cardiovascular: normal blood pressure, no [...] Screening colonoscopy (10/12/2008), Hysterectomy (10/12/2003), Cholecystectomy (10/12/1969), Repairof umbilical hernia. Medications ASPIRIN atorvastatin 10 mg [...] Recorded SARS-CoV-2 (COVID-19) mRNA BNT-162b2 vax 11/30/2020 RecordedClermont County HospitalComment on above:Result Comment: Electronically Signed By: IZZY REYES, Salvatore River\Date and Time Signed: 04/09/21 17:10 EDT Clinical Note 03-23-2021 Note Date & SjttVwvyOjcfynnu05-79-6913 NoteChief Complaint Consultation for excision of Moles HPI Staff 80 year old female referred by Dr. Chen on consultation of two moles. One mole is located on the right side of the face near the jaw line. The second mole is located on the left flank region of the abdomen. Denies bleeding, itching, drainage, change in color, size or texture. C/o of irritation and uncomfortable when showering. Taking Aspirin [address] 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 Hx of Hypertension, Diastolic heart failure, mitral [...] swallowing difficulties, no hearing loss, no ear infection(s),no nose bleeds. Cardiovascular: high blood pressure, no [...] Screening colonoscopy (10/12/2008), Hysterectomy (10/12/2003), Cholecystectomy (10/12/1969), Repairof umbilical hernia. Medications ASPIRIN atorvastatin 10 mg [...] As Directed Allergies C (more content not included)...[facility] HospitalComment on above: Result Comment: Electronically Signed By: IZZY REYES, Salvatore River\Date and [...] and content) DATE CREATED AUTHOR 05/03/2020 [facility] DATE CREATED AUTHOR AUTHOR'S ORGANIZ ATION 04/17/2021 [facility] DATE CREATED AUTHOR AUTHOR'S ORGANIZ ATION 01/25/2023 [facility] DATE CREATED AUTHOR AUTHOR'S ORGANIZ ATION 07/25/2025 [facility] FOR RECORDS PERTAINING TO PATIENTS WHO [...] BE BASED ON THE PRIMARY CLINICAL RECORDS. [facility] [employer] [facility]. provides no warranty or guarantee of the accuracy or completeness of information in this document.
--- NOTE | 2025-08-02 08:06 | ED.GENADUL1 ---
HPI HPI - General Adult General Chief complaint: Abdominal Pain Stated complaint: R FLANK PAIN Time Seen by Provider: 08/02/25 07:54 Source: patient Mode of arrival: Wheelchair Limitations: no limitations History of Present Illness HPI narrative: 84-year-old female presented to the emergency department for right flank pain. She think she has a urinary tract infection. She states she has the urge to go and only a small amount of urine comes out. No gross hematuria she has had no trauma. No fever or left-sided pain. Related Data Home Medications ?Medication ?Instructions ?Recorded ?Confirmed apixaban 5 mg tablet (Eliquis) 5 mg PO Q12H 01/13/24 08/02/25 atorvastatin 10 mg tablet 10 mg PO DAILY 01/13/24 08/02/25 ergocalciferol (vitamin D2) 1,000 1,000 mcg PO DAILY 01/13/24 08/02/25 unit capsule isosorbide mononitrate 60 mg 60 mg PO BID 01/13/24 08/02/25 tablet,extended release 24 hr liothyronine 25 mcg tablet 25 mcg PO DAILY 01/13/24 08/02/25 losartan 50 mg tablet 100 mg PO DAILY 01/13/24 08/02/25 metoprolol succinate 100 mg 100 mg PO DAILY 01/13/24 08/02/25 tablet,extended release 24 hr spironolactone 25 mg tablet 25 mg PO DAILY 01/13/24 08/02/25 metoprolol succinate 50 mg 50 mg PO HS 08/02/25 08/02/25 tablet,extended release 24 hr Previous Rx's ?Medication ?Instructions ?Recorded tramadol 50 mg tablet 50 mg PO Q8H PRN pain #14 tabs 12/09/24 acetaminophen 300 mg-codeine 30 mg 1 tab PO Q6H PRN pain 5 days #20 08/02/25 tablet tabs cephalexin 500 mg capsule 500 mg PO TID 7 days #21 caps 08/02/25 ondansetron 4 mg disintegrating 4 mg PO Q6H PRN nausea and 08/02/25 tablet vomiting #20 tabs tamsulosin 0.4 mg capsule (Flomax) 0.4 mg PO DAILY #7 caps 08/02/25 Allergies Allergy/AdvReac Type Severity Reaction Status Date / Time diltiazem (From Cardizem) Allergy Hives Verified 08/02/25 07:57 digoxin AdvReac Severe Nausea Verified 08/02/25 07:57 Opioid HPI Opioid Management Most Recent Opioid Data: Last Pain Scale 8 Today, 09:36 Last MAR Pain Assessment Today, 09:36 Review of Systems ROS Narrative A ten point review of systems is negative except as noted above. [facility] Medical History (Updated 08/02/25 @ 10:11 by Timothy Alcantar MD) Atrial fibrillation ?I48.91 - Unspecified atrial fibrillation (ICD-10) Social History Little interest or pleasure in doing things: not at all Feeling down, depressed, or hopeless: not at all Exam Narrative Exam Narrative: Nurses note and vital signs reviewed General:The patient appears well and in no apparent distress.Patient is resting comfortably on cart. Skin:Warm, dry, no pallor noted.There is no rash noted including in the flank area. Head:Normocephalic, atraumatic Eye: Normal conjunctiva, no drainage Ears, Nose, Mouth, and Throat: oral mucosa is moist. Nares patent. Cardiovascular:Regular Rate and Rhythm Respiratory:Patient is in no distress, no accessory muscle use, lungs are clear to auscultation, no wheezing, rales or rhonchi Back:non-tender, including in the flank area GI: Soft and nontender Musculoskeletal: The patient has no evidence of calf tenderness, no pitting edema, symmetrical pulses noted bilaterally Neurological:A&O, normal speech Psychiatric:Cooperative Constitutional Vital Signs, click to edit/add: Last Vital Signs Temp 97.4 F L 08/02/25 07:58 Pulse 65 08/02/25 10:09 Resp 20 08/02/25 10:09 BP 145/70 H 08/02/25 07:58 Pulse Ox 95 08/02/25 10:09 O2 Del Method Nasal Cannula 08/02/25 10:09 O2 Flow Rate 2 08/02/25 10:09 Course Vital Signs Vital signs: Vital Signs Temperature 97.4 F L 08/02/25 07:58 Pulse Rate 72 08/02/25 07:58 Respiratory Rate 20 08/02/25 07:58 Blood Pressure 145/70 H 08/02/25 07:58 Pulse Oximetry 94 L 08/02/25 07:58 Oxygen Delivery Method Room Air 08/02/25 07:58 Temperature 97.4 F L 08/02/25 07:58 Pulse Rate 65 08/02/25 10:09 Respiratory Rate 20 08/02/25 10:09 Blood Pressure 145/70 H 08/02/25 07:58 Pulse Oximetry 95 08/02/25 10:09 Oxygen Delivery Method Nasal Cannula 08/02/25 10:09 Oxygen Delivery Flow Rate 2 08/02/25 10:09 Medical Decision Making MDM Narrative Medical decision making narrative: The patient is passing 2 adjacent kidney stones, at the right UV junction. She does not require admission to the hospital and she is being discharged home. Follow-up with urology. She was prescribed Tylenol 3, Zofran, Keflex, and Flomax. Treatment diagnosis and follow-up were discussed with the patient. Differential Diagnosis Differential Diagnosis: Kidney stone, UTI, pyelonephritis Lab Data Lab results reviewed: Yes I reviewed the patient's lab results Labs: Lab Results 08/02/25 08/02/25 Range/Units 08:25 08:55 WBC 8.3 (4.0-11.0) 10^3/uL RBC 3.88 L (4.20-5.40) 10^6/uL Hgb 11.8 L (12.0-16.0) g/dL Hct 36.2 (36.0-48.0) % MCV 93.3 (81.0-99.0) fL MCH 30.4 (26.7-34.0) pg MCHC 32.6 (29.9-35.2) g/dL RDW 13.1 (11.0-15.0) % Plt Count 279 (150-450) 10^3/uL MPV 10.3 (9.5-13.5) fL Neut % (Auto) 77.5 H (43.0-75.0) % Lymph % (Auto) 12.6 L (20.5-60.0) % Larue % (Auto) 8.7 (1.7-12.0) % Eos % (Auto) 0.4 L (0.9-7.0) % Baso % (Auto) 0.6 (0.2-2.0) % Neut # (Auto) 6.4 (1.4-6.5) 10^3/uL Lymph # (Auto) 1.0 L (1.2-3.8) 10^3/uL Larue # (Auto) 0.7 (0.3-0.8) 10^3/uL Eos # (Auto) 0.0 (0.0-0.7) 10^3/uL Baso # (Auto) 0.1 (0.0-0.1) 10^3/uL Abs Immat Gran (auto) 0.02 (0.00-0.03) 10^3/uL Imm/Tot Granulo (auto) 0.2 (0.0-0.5) % Sodium 143 (136-145) mmol/L Potassium 3.8 (3.5-5.1) mmol/L Chloride 107 (98-107) mmol/L Carbon Dioxide 28.9 (21.0-32.0) mmol/L Anion Gap 10.9 BUN 11.0 (7.0-18.0) mg/dL Creatinine 0.92 (0.55-1.02) mg/dL Est GFR ( Amer) >60 (>=60 mL/min/1.73m^2) Est GFR (Non-Af Amer) 58 L (>=60 mL/min/1.73m^2) BUN/Creatinine Ratio 12.0 Glucose 104 (74-106) mg/dL Calcium 9.1 (8.5-10.1) mg/dL Urine Color Dk. orange (YELLOW) Urine Clarity Cloudy A (CLEAR) Urine pH Color interference A (5.0-9.0) Ur Specific Cornish 1.010 (1.005-1.025) Urine Protein Color interference A (NEG/TRACE) mg/dL Urine Glucose (UA) Color interference A (NEGATIVE) mg/dL Urine Ketones Color interference A (NEGATIVE) mg/dL Urine Occult Blood Color interference A (NEGATIVE) Urine Nitrite Color interference A (NEGATIVE) Urine Bilirubin Color interference A (NEGATIVE) Urine Urobilinogen Color interference A (0.2-1.0) EU/dL Ur Leukocyte Esterase Color interference A (NEGATIVE) Urine RBC 75-100 A (0-2) #/HPF Urine WBC 0-2 A (NONE SEEN) #/HPF Ur Squamous Epith Cells Few A (NONE/RARE) #/LPF Urine Crystals Seen A (None Seen) #/HPF Amorphous Sediment Many Urine Bacteria Moderate A (NONE SEEN) #/HPF Urine Casts None seen (NONE SEEN) #/LPF Urine Mucus None seen (NONE SEEN) Ur Culture Indicated? Yes-[facility] Imaging Data CT scan - abdomen: Radiologist's impression: ITS Impressions Abdomen/Pelvis CT 08/02/25 09:10 IMPRESSION: BILATERAL NEPHROLITHIASIS. PARTIALLY OBSTRUCTING RIGHT URETEROVESICAL JUNCTION STONES. DIVERTICULOSIS. SUPRAUMBILICAL VENTRAL HERNIAS. Impression dictated by: Johana Dorantes M.D. 08/02/2025 10:02 AM Dictation Location: [place] [address] Electronically authenticated by: [id number] Y Date: 08/02/2025 10:02 Discharge Plan Discharge Chief Complaint: Abdominal Pain Clinical Impression: Kidney stone Patient Disposition: Home, Self-Care Time of Disposition Decision: 10:10 Condition: Good Mode of Transportation: Private Vehicle Prescriptions / Home Meds: New acetaminophen-codeine 300-30 mg tablet 1 tab PO Q6H PRN (Reason: pain) 5 Days Qty: 20 0RF tamsulosin [Flomax] 0.4 mg capsule 0.4 mg PO DAILY Qty: 7 0RF cephalexin 500 mg capsule 500 mg PO TID 7 Days Qty: 21 0RF ondansetron 4 mg tablet,disintegrating 4 mg PO Q6H PRN (Reason: nausea and vomiting) Qty: 20 0RF No Action tramadol 50 mg tablet 50 mg PO Q8H PRN (Reason: pain) Qty: 14 0RF metoprolol succinate 50 mg tablet extended release 24 hr 50 mg PO HS metoprolol succinate 100 mg tablet extended release 24 hr 100 mg PO DAILY isosorbide mononitrate 60 mg tablet extended release 24 hr 60 mg PO BID Eliquis 5 mg tablet 5 mg PO Q12H atorvastatin 10 mg tablet 10 mg PO DAILY liothyronine 25 mcg tablet 25 mcg PO DAILY spironolactone 25 mg tablet 25 mg PO DAILY losartan 50 mg tablet 100 mg PO DAILY ergocalciferol (vitamin D2) 1,000 unit capsule 1,000 mcg PO DAILY Print Language: Ukrainian Instructions: Kidney Stones (ED), How to Strain Your Urine (ED) Referrals: Norris Bates MD [Primary Care Provider, Family Practice] - 1 week Tommy Juares MD [Physician, Urology] - 1 week
[2025-08-02 08:31] LABS: Glucose Urine UA COLOR INTERFERENCE mg/dL (NEGATIVE)
[2025-08-02 08:44] LABS: Cast Seen? NONE SEEN #/LPF (NONE SEEN); Crystals Seen? Seen #/HPF (None Seen); Urine Culture Indicated YES-FRMC
[2025-08-02 09:09] LABS: Hematocrit 36.2 % (36.0-48.0); Hemoglobin 11.8 g/dL (12.0-16.0); Immature Granulocytes Abs Auto 0.02 10^3/uL (0.00-0.03); Immature Granulocytes Pct Auto 0.2 % (0.0-0.5); Lymphocytes Absolute Auto 1.0 10^3/uL (1.2-3.8); Mean Corpuscular HGB Conc 32.6 g/dL (29.9-35.2); Mean Corpuscular Hemoglobin 30.4 pg (26.7-34.0); Mean Corpuscular Volume 93.3 fL (81.0-99.0); Platelet Count 279 10^3/uL (150-450); Red Blood Count 3.88 10^6/uL (4.20-5.40); White Blood Count 8.3 10^3/uL (4.0-11.0)
--- NOTE | 2025-08-02 09:10 | CT_ITS ---
The [address] [address] Patient Name: PAULINE CAMARENA MRN: [id number] date: 1940 Sex: F Assigned Patient Location: ER Current Patient Location: ER Accession/Order Number: [id number] Exam Date: 08/02/2025 09:05 Report Date: 08/02/2025 10:02 At the request of: JOHNNY MAHMOOD MD Procedure: CT abdomen pelvis wo con CT ABDOMEN AND PELVIS WITHOUT CONTRAST COMPARISON: 01/26/2025 CLINICAL DATA: Right flank and back pain with nausea and painful urination. Spiral images were obtained through the abdomen and pelvis without contrast. This CT exam was performed using one or more following dose reduction techniques: Automated exposure control, adjustment of the mA and/or kV according to patient size, or use of iterative reconstruction technique. Limited cuts through the lung bases show borderline cardiomegaly. There is minimal atelectasis or scarring. Assessment of the intra-abdominal organs is slightly limited by the absence of contrast. The gallbladder is not seen and is presumed to be surgically absent. The common duct is prominent though no choledocholithiasis is identified. No intrahepatic masses are noted. The spleen, pancreas and adrenal glands show no acute findings. There is minimal bilateral perinephric fibrofatty stranding. There are bilateral renal stones, larger on the right measuring 4-5 mm. There is mild to moderate right hydronephrosis. There is also hydroureter. The findings are secondary to a stone at the ureterovesical junction measuring 4-5 mm in size. There is also a second tiny 2 mm stone proximal to it. There is atherosclerotic plaque at the aorta, iliac and some of the visceral arteries. Small lymph nodes are present. No ascites is seen. The small bowel loops are not dilated. Mild stool is visualized along the colon. There are postoperative changes of hernia repair at the abdominal wall in the supra umbilical region. There are continued fat-containing hernias to the right of the repair and between the repair and umbilicus. Dextroscoliotic curvature and degenerative changes are visualized at the spine, greatest at the lower facets. The pelvic small bowel loops are normal caliber. No appendiceal inflammation is seen. There is a small amount of distal colonic stool. Sigmoid diverticula are visualized, without associated active inflammation. The uterus is surgically absent. No urinary bladder abnormalities are identified. No ascites is seen. There is minor degenerative change at the hips. CT/CT abdomen pelvis wo con IMPRESSION: BILATERAL NEPHROLITHIASIS. PARTIALLY OBSTRUCTING RIGHT URETEROVESICAL JUNCTION STONES. DIVERTICULOSIS. SUPRAUMBILICAL VENTRAL HERNIAS. Impression dictated by: Johana Dorantes M.D. 08/02/2025 10:02 AM Dictation Location: [place] [address] Electronically authenticated by: [id number] Y Date: 08/02/2025 10:02
[2025-08-02 09:13] LABS: Anion Gap 10.9; Blood Urea Nitrogen 11.0 mg/dL (7.0-18.0); Calcium 9.1 mg/dL (8.5-10.1); Carbon Dioxide 28.9 mmol/L (21.0-32.0); Chloride 107 mmol/L (98-107); Estimated GFR (African America >60 (>=60 mL/min/1.73m^2); Estimated GFR (Non-African Ame 58 (>=60 mL/min/1.73m^2); Glucose 104 mg/dL (74-106); Potassium 3.8 mmol/L (3.5-5.1); Sodium 143 mmol/L (136-145)
[2025-08-02] MEDS: MORPHINE SULFATE 2 MG/ML SYRINGE IV (09:36)
[2025-08-02 10:02] VITALS: O2SAT 88
[2025-08-02 10:09] VITALS: PULSE 65; O2SAT 95
[2025-08-02 10:42] VITALS: O2SAT 92
== END 2025-08-02 10:46 | disposition home or self-care (01) ==
PROVIDERS: Emergency Provider Emergency Medicine; PCP Family Medicine
DX: N20.0 Calculus of kidney (principal); K57.90 Diverticulosis of intestine, part unspecified, without perforation or abscess without bleeding; K43.9 Ventral hernia without obstruction or gangrene; Z90.710 Acquired absence of both cervix and uterus
CPT/HCPCS: 36415; 74176; 80048; 81001; 85025; 87086; 96374; 99284; J2270